=== PATIENT | female | born 1995 | race Caucasian/White ===

== ENCOUNTER → 2017-10-07 16:53 | Outpatient (CLI) | payer BC, SELFPAY ==
[2017-10-07 17:41] LABS: Absolute Lymphocyte Count 1.85 X10^3/ul (0.83-4.51); Absolute Neutrophil Count 7.6 X10^3/uL (2.0-7.7); Basophil# 0.01 X10^3/uL; Basophil% 0.1 % (0-1); Eosinophil# 0.04 X10^3/uL; Eosinophils% 0.4 % (0-5); Hematocrit 40.1 % (37-47); Hemoglobin 13.8 g/dl (12.0-15.0); Lymphocyte # 1.85 X10^3/ul (4.0); Mean Corp Hgb Conc 34.4 g/gl (32-36); Mean Corpuscular Hgb 30.9 pg (27.0-32.0); Mean Corpuscular Volume 89.7 fL (81-99); Mean Platelet Vol. 12.8 fl (6.2-12.0); Monocyte# 0.73 X10^3/uL; Monocyte% 7.1 % (0-10); Neutrophil # 7.61 X10^3/uL (2.7-7.7); Neutrophil % 74.1 % (47-70); Platelet Count 207 K/mm3 (150-450); RBC Distribution Width CV 11.9 % (11.6-14.6); RBC Distribution Width SD 38.4 fl (35.1-43.9); Red Blood Count 4.47 M/mm3 (4.2-5.4); White Blood Count 10.3 K/mm3 (4.4-11.0)
[2017-10-07 17:42] LABS: POSITIVE COUNT NO; POSITIVE DIFFERENTIAL NO; POSITIVE MORPHOLOGY NO
[2017-10-07 18:12] LABS: Glucose Challenge Gest 1H 50g 137 mg/dL (70-140)
[2017-10-07 19:07] LABS: HIV - WCH Non-Reactive (Nonreactive); Rubella IgG 141.1 IU/mL
[2017-10-09 03:47] LABS: Rapid Plasmin Reagin (RPR) NONREACTIVE (NONREACTIVE)
[2017-10-09 11:19] LABS: HEPATITIS B SURFACE AG Negative (Negative)
== END ==
PROVIDERS: Family Provider Family Medicine; PCP Family Medicine; Visit Provider Obstetrics & Gynecology
DX: Z34.90 Encounter for supervision of normal pregnancy, unspecified, unspecified trimester (principal)
CPT/HCPCS: 36415; 82950; 85025; 86592; 86703; 86762; 86850; 86900; 87340

== ENCOUNTER → 2017-10-07 17:23 | Outpatient (CLI) | payer BC, SELFPAY ==
[2017-10-07 20:04] LABS: Chlamydia Trachomatis by PCR Negative (Negative); Neisserai gonorrhoeae by PCR Negative (Negative); Probe Check PASS; Sample Adequacy Control PASS; Specimen Processing Control PASS
== END ==
PROVIDERS: Family Provider Family Medicine; PCP Family Medicine; Visit Provider Obstetrics & Gynecology
DX: Z34.90 Encounter for supervision of normal pregnancy, unspecified, unspecified trimester (principal)
CPT/HCPCS: 87086; 87088; 87491; 87591

== ENCOUNTER → 2017-10-29 06:47 | Outpatient (CLI) | payer BC, SELFPAY ==
[2017-10-29 07:38] LABS: Glucose GTT-Gestation. Fasting 88 mg/dL (<105)
[2017-10-29 08:27] LABS: Glucose GTT-Gestational 1 Hr 112 mg/dL (<190)
[2017-10-29 10:00] LABS: Glucose GTT-Gestational 2 Hr 102 mg/dL (<165)
[2017-10-29 10:51] LABS: Glucose GTT-Gestational 3 Hr 68 L (<145)
== END ==
PROVIDERS: Family Provider Family Medicine; PCP Family Medicine; Visit Provider Obstetrics & Gynecology
DX: R73.09 Other abnormal glucose (principal)
CPT/HCPCS: 36415; 82951; 82952

== ENCOUNTER → 2018-02-22 16:40 | Outpatient (CLI) | payer MEDICAID, SELFPAY ==
[2018-02-22 17:22] LABS: Absolute Neutrophil Count 9.2 X10^3/uL (2.0-7.7); Basophil# 0.03 X10^3/uL; Basophil% 0.2 % (0-1); Eosinophil# 0.08 X10^3/uL; Eosinophils% 0.7 % (0-5); Hematocrit 34.7 % (37-47); Lymphocyte % 15.6 % (19-41); Mean Corp Hgb Conc 34.6 g/gl (32-36); Mean Corpuscular Volume 95.3 fL (81-99); Mean Platelet Vol. 11.7 fl (6.2-12.0); Monocyte# 0.78 X10^3/uL; Monocyte% 6.4 % (0-10); Neutrophil # 9.22 X10^3/uL (2.7-7.7); Neutrophil % 75.6 % (47-70); Platelet Count 186 K/mm3 (150-450); RBC Distribution Width CV 12.7 % (11.6-14.6); RBC Distribution Width SD 42.3 fl (35.1-43.9); Red Blood Count 3.64 M/mm3 (4.2-5.4); White Blood Count 12.2 K/mm3 (4.4-11.0)
[2018-02-22 17:24] LABS: POSITIVE COUNT NO; POSITIVE DIFFERENTIAL NO; POSITIVE MORPHOLOGY NO
[2018-02-22 17:28] LABS: Glucose Challenge Gest 1H 50g 122 mg/dL (70-140)
== END ==
PROVIDERS: Family Provider Family Medicine; PCP Family Medicine; Referring Provider Obstetrics & Gynecology; Visit Provider Obstetrics & Gynecology
DX: O09.90 Supervision of high risk pregnancy, unspecified, unspecified trimester (principal); Z3A.00 Weeks of gestation of pregnancy not specified
CPT/HCPCS: 36415; 82950; 85025

== ENCOUNTER 2018-04-28 11:00 | Outpatient (CLI) | payer BC, MEDICAID, SELFPAY ==
[2018-04-21 14:16] VITALS: BMI 44.2
[2018-04-28 11:34] VITALS: BMI 44.4
[2018-04-28 12:02] LABS: Color, Urine Yellow (Yellow); Glucose, Dipstick Normal (Normal); Ketone-Dipstick Negative (Negative); Leukocyte Esterase-Dipstick 500 /ul (Negative); Nitrite-Dipstick Negative (Negative); Occult Blood-Urine Negative /ul (Negative); Protein-Dipstick 15 mg/dl (Negative); Urine Bilirubin Dipstick Negative (Negative); Urine Clarity Cloudy (Clear); Urine Urobilinogen 1 mg/dl (Normal); Urine pH 6.5 (5.0 - 8.0)
[2018-04-28] MEDS: Betamethasone/Betamethasone 30 MG/5 ML Vial 12 MG IM (13:21)
--- NOTE | 2018-04-29 04:05 | OB.TRI.NOTE ---
- Problem List (1) Threatened labor Status: Acute History of Present Illness Date of Service: 04/28/18 Was patient seen by the physician?: No Reason For Visit: R/O LABOR Date of Service: 04/28/18 History of Present Illness: 36 week co ctx pelvic pressure twins Allergies Penicillins [PCN] Allergy (Verified 04/28/18 11:35) Rash - Pertinent Past Medical History Medical History: Past Medical History (Last Reviewed 04/21/18 @ 13:54 by Edilia Briggs) Anxiety and depression Laboratory Studies: Laboratory Tests 04/28/18 Range/Units 11:40 Urine Color Yellow (Yellow) Urine Clarity Cloudy (Clear) Urine pH 6.5 (5.0 - 8.0) Ur Specific [place] 1.020 (1.002-1.030) Urine Protein 15 H (Negative) mg/dl Urine Glucose (UA) Normal (Normal) mg/dl Urine Ketones Negative (Negative) mg/dl Urine Occult Blood Negative (Negative) /ul Urine Nitrite Negative (Negative) Urine Bilirubin Negative (Negative) mg/dL Urine Urobilinogen 1 H (Normal) mg/dl Ur Leukocyte Esterase 500 H (Negative) /ul NST - FHR Rate Baby A Baseline: 130 Variability:: Moderate Accelerations:: 15 x 15 Decelerations:: None NST Reactive:: Yes FHR Category:: Category I Uterine Activity:: irregualr - FHR Rate Baby B Baseline: 130 Variability:: Moderate Accelerations:: 15 x 15 Decelerations:: Variable - isolated variable overall reassuring NST Reactive:: Yes FHR Category:: Category I Uterine Activity:: irregular Impression/Plan false labor no cervicla change dc home labor precautions
== END 2018-04-28 14:20 | disposition home or self-care (01) ==
LOC: WPOUT 11:08 → OBT 11:09
PROVIDERS: Family Provider Family Medicine; PCP Family Medicine; Referring Provider Obstetrics & Gynecology; Visit Provider Obstetrics & Gynecology
DX: O47.03 False labor before 37 completed weeks of gestation, third trimester (principal); O30.003 Twin pregnancy, unspecified number of placenta and unspecified number of amniotic sacs, third trimester; O76 Abnormality in fetal heart rate and rhythm complicating labor and delivery; Z3A.36 36 weeks gestation of pregnancy
CPT/HCPCS: 59025; 59050; 81002; 96372; 99218; G0378; J0702

== ENCOUNTER 2018-04-29 13:16 | Outpatient (CLI) | payer BC, MEDICAID, SELFPAY ==
[2018-04-28 11:34] VITALS: BMI 44.4
[2018-04-29] MEDS: Betamethasone/Betamethasone 30 MG/5 ML Vial 12 MG IM (13:29)
[2018-04-29 13:40] VITALS: BMI 44.5
--- NOTE | 2018-05-04 02:25 | OB.TRI.NOTE ---
- Problem List (1) Threatened labor Status: Acute History of Present Illness Reason For Visit: INJECTION History of Present Illness: celestone Allergies Penicillins [PCN] Allergy (Verified 04/28/18 11:35) Rash - Pertinent Past Medical History Medical History: Past Medical History (Last Reviewed 04/21/18 @ 13:54 by Edilia Briggs) Anxiety and depression Impression/Plan celestone injeciton only no exam
== END 2018-04-29 13:35 | disposition home or self-care (01) ==
LOC: WPOUT 13:19 → WP 13:19
PROVIDERS: Family Provider Family Medicine; PCP Family Medicine; Referring Provider Obstetrics & Gynecology; Visit Provider Obstetrics & Gynecology
DX: O47.00 False labor before 37 completed weeks of gestation, unspecified trimester (principal); Z3A.00 Weeks of gestation of pregnancy not specified
CPT/HCPCS: 96372; 99218; G0378; J0702

== ENCOUNTER 2018-05-10 05:00 | Inpatient (IN) | payer BC, MEDICAID, SELFPAY ==
[2018-04-21 14:16] VITALS: BMI 44.2
[2018-05-04 16:05] VITALS: BMI 44.5
[2018-05-10] VITALS (21 sets, daily range): BP systolic 97–140; BP diastolic 31–77; PULSE 79–114; RESP 14–22; TEMP 36.1–36.6; O2SAT 96–100; BMI 44.6
[2018-05-10] MEDS: Lactated Ringers 1,000 ML 999 ML IV (05:25)
[2018-05-10 06:18] LABS: Hematocrit 37.2 % (37-47); Hemoglobin 12.7 g/dl (12.0-15.0); Mean Corp Hgb Conc 34.1 g/gl (32-36); Mean Corpuscular Hgb 31.4 pg (27.0-32.0); Mean Corpuscular Volume 91.9 fL (81-99); Mean Platelet Vol. 12.1 fl (6.2-12.0); Platelet Count 186 K/mm3 (150-450); RBC Distribution Width CV 12.8 % (11.6-14.6); RBC Distribution Width SD 41.8 fl (35.1-43.9); Red Blood Count 4.05 M/mm3 (4.2-5.4); White Blood Count 12.8 K/mm3 (4.4-11.0)
[2018-05-10 06:20] LABS: Scan Indicated on CBC? Y/N NO
[2018-05-10] MEDS: Sodium Citrate/Citric Acid 30 ML UDC PO (06:30)
[2018-05-10] MEDS: Lactated Ringers 1,000 ML 150 ML IV (06:31)
[2018-05-10] MEDS: Methylergonovine 0.2 MG/ML Ampul IM ×2 (07:50→11:04)
--- NOTE | 2018-05-10 08:37 | PCM.HP.OB ---
- Problem List (1) Multiple gestation with one or more malpresentations in third trimester Status: Acute Comment: plan LTCS- 05/10/18 ? (2) Status: Acute Qualifiers: Comment: MFM growth US renal pelvis dilation Twin A-refer to treament. Growth US every 4 weeks. testing 1x per week and daily kick counts due to BMI >40. (3) Obesity affecting Status: Acute Qualifiers: (4) Dichorionic diamniotic twin gestation Status: Acute Qualifiers: Comment: growth scans q 4 weeks after 26 weeks (5) Abnormal glucose Status: Acute Comment: nl 3 hour gtt (6) Supervision of high-risk Status: Chronic Qualifiers: Comment: PRR LITA 05/24/18 Andreina and Stefania boyfrienifeanyi [facility]st History Date of Admission: 05/10/18 Final LITA: 05/24/18 Gestational age: 38 Weeks and 0 Days History of this : This is a 22 year-old, , at 38 weeks gestational age presents for LTCS. Medical History: Medical History (Last Reviewed 05/04/18 @ 16:04 by Edilia Briggs) Anxiety and depression F41.9, F32.9 Allergies Penicillins [PCN] Allergy (Verified 05/10/18 05:20) Rash Home Medications: Home Medications vitamin,calcium,iecixsri-ngjj-ulacb acid tablet 1 tab PO QDAY 10/07/17 Sertraline HCl [Zoloft] 50 mg PO DAILY 04/28/18 Smoking Status: Never smoker Alcohol: None Number of Fetus(es): 2 Heart Tracins x 2 History Past Pregnancies: Past Pregnancies Delivery Date Name GA/Weeks Outcome Route Weight Gender Labor Length Anesthesia Delivery Location Provider FOB Labs: Mom's Labs & Results 05/10/18 05/10/18 05:25 05:25 WBC 12.8 H RBC 4.05 L Hgb 12.7 Hct 37.2 MCV 91.9 MCH 31.4 MCHC 34.1 RDW 12.8 RDW Differential 41.8 Plt Count 186 MPV 12.1 H Blood Type O POSITIVE Antibody Screen NEGATIVE Course Did the patient receive Yes care? Labs Blood Type: O RH: POSITIVE RPR/VDRL/Syphilis Nonreactive Rubella status Immune HbSAg Negative Date Done: 10/07/17 Chlamydia Negative Gonorrhea Negative HIV/AIDS Non-Reactive Group B Strep: Positive Current Obstetrical History Gestational Diabetes No Incompetent Cervix No Infertility No IUGR No Macrosomia No Hypertension/Pre-eclampsia No Placenta Previa/Abruption No PTL/PROM No Uterine anomaly No Oligohydramnios No Polyhydramnios No Multiple gestation Yes: twins Past Medical History Asthma No Diabetes No Hypertension No Heart disease No Mitral valve prolapse No Neurologic/Seizure disorder/ No Migraines Kidney disease No Liver disease No Varicosities No Clotting disorders/Hx of DVT No Thyroid Dysfunction No Other medical diseases Yes: taking zoloft Psychiatric disorders No Major trauma No Abnormal PAP smear No Sleep apnea No Mammogram in the last 2 years No Social History Marital Status: SINGLE Alleged father Aris Hx Smoking No Smoking Status Never smoker Review of Systems Constitutional: Denies: Fever, Malaise Eyes: Denies: Blurred vision, Vision Change HEENT: Denies: Head Aches, Visual Changes Cardiovascular: Denies: Chest Pain, Palpitations Respiratory: Denies: Cough, Shortness of Breath, Wheezing Gastrointestinal: Denies: Abdominal Pain, Diarrhea, Nausea, Vomiting Genitourinary: Denies: Dysuria, Hematuria Musculoskeletal: Denies: Joint Pain, Muscle pain Skin: Denies: Lesions, Rash Neurological: Denies: Blurred vision, Focal weakness, Headaches Psychiatric: Denies: Anxiety, Depression Endocrine: Denies: Heat/ Cold Intolerance Hematologic/ Lymphatic: Denies: Easy Bruising, Easy Bleeding Physical Exam General: Alert, Cooperative, No apparent distress HEENT: Atraumatic, Normocephalic. Negative for: Thyromegaly, Lymphadenopathy Cardiovascular: Regular rate Lungs: Normal air movement Abdomen: Soft, Non Tender, Gravid Neurological: Deep Tendon Reflexes 2+/4 and Symmetrical, Neuro grossly intact. Negative for: Clonus CORRESPONDENCE SPECIALIST: Normal external genitalia. Negative for: Vulvar lesions Estimated gestational size: Appropriate for gestational size Presentation: Cephalic Assessment/Plan All Active Problems (Last Reviewed 05/04/18 @ 16:04 by Edilia Briggs) Threatened labor (Acute) Multiple gestation with one or more malpresentations in third trimester (Acute) (Acute) Obesity affecting (Acute) Dichorionic diamniotic twin gestation (Acute) Abnormal glucose (Acute) BMI greater than 40 (Resolved) Imperforate hymen (Resolved) This is a 22 year-old, , at 38 weeks gestational age with twins malpresentation plan LTCS for malpresentation
--- NOTE | 2018-05-10 08:44 | OP.PCM_ITS ---
Problem List (1) Multiple gestation with one or more malpresentations in third trimester Status: Acute Comment: plan LTCS- 05/10/18 ? (2) Status: Acute Qualifiers: Comment: MFM growth US renal pelvis dilation Twin A-refer to treament. Growth US every 4 weeks. testing 1x per week and daily kick counts due to BMI >40. (3) Obesity affecting Status: Acute Qualifiers: (4) Dichorionic diamniotic twin gestation Status: Acute Qualifiers: Comment: growth scans q 4 weeks after 26 weeks (5) Abnormal glucose Status: Acute Comment: nl 3 hour gtt (6) Supervision of high-risk Status: Chronic Qualifiers: Comment: PRR LITA 05/24/18 Andreina and Stefania boysusan [facility]st Report of Operation Date of Procedure: 05/10/18 Pre-Operative Diagnosis: Di?di twins breech breech presentation Post-Operative Diagnosis: Same Surgery/Procedure Performed:: Low transverse section Description of Surgical Findings:: Bilateral normal ovaries and tubes, mild uterine atony, both female infants and complete breech presentation special education teaching assistant: Estefany Caballero Type of Anesthesia:: Spinal Specimen's removed: female infants x 2 Drains: garcia Estimated Blood Loss (mL): 900 Fluids Replaced: crystalloid Description of Procedure: The patient is a 22-year-old at 38 weeks with diamniotic dichorionic twins in breech breech presentation presented for by Zeinab . Spinal anesthesia was placed without difficulty. Garcia catheter was placed. The patient was placed in the dorsal supine position with leftward tilt. Patient was prepped and draped in the normal sterile fashion. Pfannenstiel skin incision was made with the scalpel and carried through to the underlying layer of fascia with the scalpel. Fascia was nicked in the midline and the incision extended laterally. The rectus bellies were dissected off superiorly and inferiorly with out complication both sharply and bluntly. The peritoneum was entered digitally. The incision was stretched and a low transverse uterine incision was made with the scalpel. The 's buttocks was delivered followed by the rest the spontaneously without additional maneuvers without complication the rest of the delivered. The cord was clamped and cut and the infant was handed off to awaiting nurse. BPP's amniotic sac was ruptured of clear fluid and the buttocks was delivered followed by the rest of the without complication immediately following spontaneously. the placentas delivered spontaneously immediately following and were noted to be intact and have three-vessel cords. The uterus was exteriorized cleared of all clots and debris, and the incision was closed in a double layer closure using #1 Monocryl. Mild uterine atony was encountered and treated with Pitocin and Methergine. The uterus was returned to the maternal abdomen and gutters were cleared of all clots and debris. The ovaries and fallopian tubes were noted to be within normal limits. The peritoneum was closed with 3-0 Monocryl in a runni ng fashion. Fascia was closed with 0 PDS in a running fashion. Subcutaneous tissue was copiously irrigated and the skin was closed with 3-0 Monocryl in a subcuticular fashion. Mepilex dressing were applied without complication. Patient was taken to recovery in stable condition. Grafts/Implants Used: none - Complications none - Admit VTE Documentation VTE Present on Admission: No
--- NOTE | 2018-05-10 08:47 | PLAC_PTH ---
PATIENT: LOULOU YOU LOC: [facility] U#:[id number] AGE/SX: ROOM: WP004 RE05/10/[address]: Dr. Aeme Jackson MD : 1995 BED: 1 DIS: 05/12/2018 SPEC #: [id number] RECD: 05/10/18 11:02 STATUS: SHE ANJEL #: [id number] LAURA: 05/10/18 08:[address]: Amee Jackson DEPT: SURGICAL PATHOLOGY RECD BY: Hema Welch ENTERED: 05/10/18 11:34 SP TYPE: PLACENTA OTHR DR: Louise Moon PA-C Tissues: Placenta, NOS Procedures: Surgery Specimen Level V HEADER OPERATION: section PRE-OP DIAGNOSIS: Twins TISSUE SUBMITTED: Placenta MICROSCOPIC DIAGNOSIS Twin Placenta A, section: Diamniotic-dichorionic twin placenta, 520 gm. Placental weight and villous maturation consistent with gestational age. Small placental hematomas, maximal 1.5 cm. Intervillous fibrin deposition with calcification. Three-vessel umbilical cord. membranes, negative for inflammation. Twin Placenta B, section: Diamniotic-dichorionic twin placenta, 530 gm. Placental weight and villous maturation consistent with gestational age. Small placental hematoma, 0.5 cm. Fibromuscular hyperplasia of stem villous blood vessels. Mild intervillous fibrin deposition with calcification. Three-vessel umbilical cord. membranes, negative for inflammation. CE:mark 05/12/18 MICROSCOPIC DESCRIPTION Slides are reviewed. GROSS DESCRIPTION SPECIMEN: TWIN PLACENTA / CLINICAL INFORMATION: A. Weight: A - 2.762 kg; B - 2.533 kg B. Gestational Age: 38 weeks C. Sex: A - Female, B - Female The specimen consists of two placental discs, two umbilical cords, peripheral membranes and a dividing membrane. One umbilical cord has a clamp on it and is designated as twin 1. Physical manipulation of the dividing membrane reveals four distinct membranes. Both peripheral membranes are ruptured at edge of placental disc. PLACENTA A: (Designated placenta 1 with clamp) PLACENTAL WEIGHT (POST FIXATION): 520 gm PLACENTAL DIMENSIONS: 22 x 16 x 3 cm PLACENTAL SHAPE: Usual ovoid PLACENTAL WEIGHT FOR GESTATIONAL AGE: Within 10-99th percentile (over/under percentile) MEMBRANES - Present A. Insertion: Marginal B. Site of rupture from edge: At edge of placental disc C. Color of membrane: Mac-pereira D. Abnormalities: None UMBILICAL CORD - Present A. Color: Mac-pereira B. Insertion: Marginal C. Length: 22 cm D. Diameter: 1 cm E. Number of vessels: Three F. Abnormalities: None PLACENTAL DISC - Present A. Color of surface: Mac-pereira B. surface abnormalities: None C. Maternal cotyledons: Intact with minimal tears D. Attached retro placental clot: No clot E. Cut surface: Dark red and spongy F. Lesions: Serial sections reveal a firm, plaque-like lesion measuring 1.5 x 1 cm close to the surface. G. Separate clot: Absent PLACENTA B: (placenta 2) PLACENTAL WEIGHT (POST FIXATION): 530 gm PLACENTAL DIMENSIONS: 17 x 15 x 3 cm PLACENTAL SHAPE: Usual ovoid PLACENTAL WEIGHT FOR GESTATIONAL AGE: Within 10-99th percentile (over/under percentile) MEMBRANES - Present A. Insertion: Marginal B. Site of rupture from edge: At edge of placental disc C. Color of membrane: Mac-pereira D. Abnormalities: None UMBILICAL CORD - Present A. Color: Mac-pereira B. Insertion: Eccentric C. Length: 20 cm D. Diameter: 1.5 cm E. Number of vessels: Three F. Abnormalities: None PLACENTAL DISC - Present A. Color of surface: Mac-pereira B. surface abnormalities: None C. Maternal cotyledons: Intact with minimal tears D. Attached retro placental clot: No clot E. Cut surface: Dark red and spongy F. Lesions: None G. Separate clot: Absent SECTIONS SUBMITTED: 1 - Dividing membrane 2 - Peripheral membrane placenta #1 3-5 - Placental disc #1 with 3 containing the lesion 6 - Umbilical cord and membranes disc #2 7-9 - Placental disc #2 AM:mark 05/11/18 TC:5 CPT: 52941 x2
[2018-05-10] MEDS: Sertraline 50 MG Tablet PO (09:48)
[2018-05-10] MEDS: Prenatal Vits Tablet 1 TABLET PO (09:48)
[2018-05-10] MEDS: Nalbuphine 10 MG/ML Ampul IV ×2 (09:48→13:37)
[2018-05-10] MEDS: 0.9% Saline Lock 10 ML Syringe IV (13:37)
[2018-05-10] MEDS: Ketorolac 30 MG/ML Syringe IV ×2 (13:37→18:04)
[2018-05-10] MEDS: Lactated Ringers 1,000 ML 100 ML IV (16:02)
[2018-05-11] VITALS (7 sets, daily range): BP systolic 90–108; BP diastolic 49–59; PULSE 78–95; RESP 16–22; TEMP 36.3–36.9; O2SAT 97–100
[2018-05-11] MEDS: Ketorolac 30 MG/ML Syringe IV ×4 (00:22→18:32)
[2018-05-11] MEDS: Lactated Ringers 1,000 ML 100 ML IV (02:00)
[2018-05-11 06:49] LABS: Hematocrit 29.1 % (37-47); Hemoglobin 9.7 g/dl (12.0-15.0); Mean Corp Hgb Conc 33.3 g/gl (32-36); Mean Corpuscular Hgb 31.6 pg (27.0-32.0); Mean Corpuscular Volume 94.8 fL (81-99); Mean Platelet Vol. 11.5 fl (6.2-12.0); Platelet Count 148 K/mm3 (150-450); RBC Distribution Width CV 13.1 % (11.6-14.6); Red Blood Count 3.07 M/mm3 (4.2-5.4); White Blood Count 10.1 K/mm3 (4.4-11.0)
[2018-05-11 06:54] LABS: Scan Indicated on CBC? Y/N NO
[2018-05-11] MEDS: 0.9% Saline Lock 10 ML Syringe IV ×2 (08:12→18:32)
--- NOTE | 2018-05-11 08:30 | PCM.PN.OB ---
Subjective: No CP, SOB. Doing well. - Physical Exam General: Alert, Oriented x3 Abdomen: Soft, Non-Distended, - - Dressing dry and intact. Minimal tenderness with exam. FF below U Vital Signs Temp Pulse Resp BP Pulse Ox 97.5 F L 82 16 95/52 L 100 05/11/18 08:00 05/11/18 08:00 05/11/18 08:00 05/11/18 08:00 05/11/18 08:00 Oxygen Delivery Method Room Air Weight: 251 lb 15.814 oz Body Mass Index (BMI) 44.6 Intake and Output for Last 24 Hours 05/09/18 05/10/18 05/11/18 23:59 23:59 23:59 Intake Total 2868 / 2868 1401 / 1401 Output Total 1225 / 1225 875 / 875 Balance 1643 / 1643 526 / 526 Laboratory Tests Past 24 Hrs 05/11/18 06:35 WBC 10.1 RBC 3.07 L Hgb 9.7 L Hct 29.1 L MCV 94.8 MCH 31.6 MCHC 33.3 RDW 13.1 RDW Differential 43.0 Plt Count 148 L MPV 11.5 Medical Necessity - Tobacco Use Smoking Status: Never smoker Assessment/Plan All Active Problems (Last Reviewed 05/04/18 @ 16:04 by Edilia Briggs) Threatened labor (Acute) Multiple gestation with one or more malpresentations in third trimester (Acute) (Acute) Obesity affecting (Acute) Dichorionic diamniotic twin gestation (Acute) Abnormal glucose (Acute) BMI greater than 40 (Resolved) Imperforate hymen (Resolved) LTPCS twins POD#1: Routine care. Pain controlled.
[2018-05-11] MEDS: Sertraline 50 MG Tablet PO (09:32)
[2018-05-11] MEDS: Prenatal Vits Tablet 1 TABLET PO (12:04)
[2018-05-11] MEDS: Acetaminophen 500 MG Tablet 1000 MG PO (16:08)
[2018-05-12] MEDS: 0.9% Saline Lock 10 ML Syringe IV ×2 (00:06→06:13)
[2018-05-12] MEDS: Ketorolac 30 MG/ML Syringe IV ×2 (00:06→06:15)
[2018-05-12 01:50] VITALS: BP 103/65; PULSE 80; RESP 18; TEMP 36.8; O2SAT 98
--- NOTE | 2018-05-12 08:02 | PCM.PN.OB ---
Subjective: Doing well. No CP, SOB. Pain controlled - Physical Exam General: Alert, Oriented x3 Abdomen: Soft, Non Tender, Non-Distended, - - FF below U. Dressing dry and intact Vital Signs Temp Pulse Resp BP Pulse Ox 98.2 F 80 18 103/65 98 05/12/18 01:50 05/12/18 01:50 05/12/18 01:50 05/12/18 01:50 05/12/18 01:50 Oxygen Delivery Method Room Air Weight: 251 lb 15.814 oz Body Mass Index (BMI) 44.6 Intake and Output for Last 24 Hours 05/10/18 05/11/18 05/12/18 23:59 23:59 23:59 Intake Total 2868 / 2868 1401 / 1401 Output Total 1225 / 1225 1475 / 1475 Balance 1643 / 1643 -74 / -74 Medical Necessity - Tobacco Use Smoking Status: Never smoker Assessment/Plan All Active Problems (Last Reviewed 05/04/18 @ 16:04 by Edilia Briggs) Threatened labor (Acute) Multiple gestation with one or more malpresentations in third trimester (Acute) (Acute) Obesity affecting (Acute) Dichorionic diamniotic twin gestation (Acute) Abnormal glucose (Acute) BMI greater than 40 (Resolved) Imperforate hymen (Resolved) LTPCS POD#2: Routine care. Bottle feeding. Plans home today.
--- NOTE | 2018-05-12 08:03 | PCM.DCCSEC ---
Additional Instructions: If you experience any of the following, contact your healthcare provider. Bleeding that soaks a pad every hour for 2 hours Fever 100.4 or higher Unrelieved incision or abdominal pain Swelling, redness, discharge or bleeding from your incision or episiotomy site Your incision begins to separate Problems urinating (including inability to urinate or burning while urinating). Visual changes Severe headache Flu-like symptoms Pain or redness in one of both of your breasts Pain, warmth, tenderness or swelling in your legs, especially the calf area Frequent nausea and vomiting Symptoms of depression or anxiety If you experience any of the following, call 911 or go to the nearest Emergency Room. Chest pain Problems breathing Seizure activity Partial or complete paralysis of a body part, slurred speech, weakness or drooping of the face, or a sudden inability to walk or hold your balance Allergies/Adverse Reactions: Allergies Penicillins [PCN] Allergy (Verified 05/10/18 05:20) Rash Medications to take at Discharge vitamin,calcium,axlllrwi-fimi-tivsw acid tablet 1 tab PO QDAY 10/07/17 Sertraline HCl [Zoloft] 50 mg PO DAILY 04/28/18 Naproxen [Naprosyn] 500 mg PO BID PRN PRN #60 tablet 05/12/18 Oxycodone HCl/Acetaminophen [Percocet 5/325] 1 - 2 tablet PO Q4H PRN PRN 7 Days #28 tablet 05/12/18 The following prescriptions were given: Oxycodone HCl/Acetaminophen [Percocet 5/325] 1 - 2 tablet PO Q4H PRN PRN 7 Days #28 tablet PRN Reason: Pain Naproxen [Naprosyn] 500 mg PO BID PRN PRN #60 tablet PRN Reason: Pain Follow-Up: Call to make an appointment with your doctor for an incision check in 1-2 weeks. You will also need a 6 week post- follow up appointment. Test results from this visit will be discussed in further detail at your follow-up appointment, if applicable. Primary Care Physician: Louise Moon PA-C [Primary Care Provider] -
--- NOTE | 2018-05-12 08:05 | DCINST_ITS ---
Additional Instructions: If you experience any of the following, contact your healthcare provider. * Bleeding that soaks a pad every hour for 2 hours * Fever 100.4 or higher * Unrelieved incision or abdominal pain * Swelling, redness, discharge or bleeding from your incision or episiotomy site * Your incision begins to separate * Problems urinating (including inability to urinate or burning while urinating). * Visual changes * Severe headache * Flu-like symptoms * Pain or redness in one of both of your breasts * Pain, warmth, tenderness or swelling in your legs, especially the calf area * Frequent nausea and vomiting * Symptoms of depression or anxiety If you experience any of the following, call 911 or go to the nearest Emergency Room. * Chest pain * Problems breathing * Seizure activity * Partial or complete paralysis of a body part, slurred speech, weakness or drooping of the face, or a sudden inability to walk or hold your balance Allergies/Adverse Reactions: Allergies Penicillins [PCN] Allergy (Verified 05/10/18 05:20) Rash Medications to take at Discharge vitamin,calcium,cjjrpogx-gdvi-wjknl acid tablet 1 tab PO QDAY 10/07/17 Sertraline HCl [Zoloft] 50 mg PO DAILY 04/28/18 Naproxen [Naprosyn] 500 mg PO BID PRN PRN #60 tablet 05/12/18 Oxycodone HCl/Acetaminophen [Percocet 5/325] 1 - 2 tablet PO Q4H PRN PRN 7 Days #28 tablet 05/12/18 The following prescriptions were given: Oxycodone HCl/Acetaminophen [Percocet 5/325] 1 - 2 tablet PO Q4H PRN PRN 7 Days #28 tablet PRN Reason: Pain Naproxen [Naprosyn] 500 mg PO BID PRN PRN #60 tablet PRN Reason: Pain Follow-Up: Call to make an appointment with your doctor for an incision check in 1-2 weeks. You will also need a 6 week post- follow up appointment. Test results from this visit will be discussed in further detail at your follow- up appointment, if applicable. Primary Care Physician: Louise Moon PA-C [Primary Care Provider] -
[2018-05-12 08:50] VITALS: BP 103/56; PULSE 98; RESP 16; TEMP 36.6; O2SAT 97
[2018-05-12] MEDS: Sertraline 50 MG Tablet PO (10:06)
--- NOTE | 2018-05-12 10:45 | CASEMGMT ---
ocial Work Assessment Labor and Delivery Unit Date of Referral: 05/11/2018 Time of Referral: 0739 Referred By: Dr. Jackson Date of Intervention: 05/12/2018 Time of Intervention: 1045 Reason for Referral: maternal history of depression History obtained from: medical record and mother of baby (MOB) Patty Alvarez. Father of baby present for part of the visit. Household composition: MOB, father of baby (FOB), MOB?s mother and intend for twin babies to reside in this home as well. Patient's parent/guardian status: MOB, age 21, and FOB have been together for 3 years. Privately MOB denies any form of abuse, control, or intimidation in this relationship. Children born this admission are the first for MOB and FOB. Minor children include: Stefania and Andreina Bui, twin girls. Medical History: MOB is G1, P0 to 2 after delivering twins. care started at 7 weeks gestation and adequate thereafter. Baby A delivered at 6 pounds 5 ounces, ?s 9 and 9. Baby B delivered at 6 pounds 1 ounce, ?s also 9. 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 MOB reports ability to read, write, and denies any issues with learning comprehension. 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 Supplies: MOB reports to have needed baby supplies including 2 car seats, 2 cribs, double bassinet, clothes, diapers, wipes, bottles, and can purchase formula at time of discharge. Childcare/Caregiver(s): MOB will be primary caregiver with the help from FOB and MOB?s mom. When MOB returns to work there is already a cloth roll winder lined up. Transportation: No issues reported or indicated. Programs/Agencies Involved: S for medical. WIC is in place. MOB denies any other agency involvement and declines referral to [facility]. Children Services/Legal Issues: Behavioral Health Issues: Mental Health History: MOB reports history of depression and anxiety, treated with Zoloft. MOB repots this medication seems to help and plans to stay on this in the period. MOB denies any history of thoughts of suicide, plans, or past attempts. Substance Use History: MOB denies any history of substance use. No tobacco use either. Drug Screens: None noted in the record. Family/Social Stressors: was a surprised but accepted. MOB reports it was a bit overwhelming when found out with twins but did quickly come to accept and became excited after some initial anxiety. MOB denies any other stressors or big life changes. Support Systems: MOB reports good support from FOB, MOB?s mother, and then FOB?s family lives close by and are helpful. MOB reports FOB?s family are [place] so there is a large family network this way. MOB reports FOB is MOB?s main emotional support. Depression/Shaken Baby/Safe Sleeping: MOB reports to be aware of safe sleeping. MOB able to give appropriate responses on shaken baby prevention. Educated MOB and FOB to depression and anxiety, risk factors, signs/symptoms, and importance of seeking out help should symptoms arise. ASSESSMENT: Met with MOB and FOB together and then with MOB alone. Both parents pleasant. FOB held one of the babies during social work visit, appeared gentle, calm, and appropriate in handling the baby. The other baby slept in the crib. MOB answered questions and FOB only when a question directly asked. FOB appearing quiet, reserved, affect constricted but brightened when talking about excitement of having children. MOB affect and mood appropriate, though when discussion about depression symptoms discussed, MOB started to cry. MOB reports unsure why crying, that just talking about crying brought on the tears. Crying was sudden onset and FOB looked on at MOB with tense facial expression appearing perplexed why MOB was crying. Talked with both that it is common for moms to cry spontaneously in the first couple of weeks, but if lasts longer than 2 weeks or other symptoms arise this could mean depression and importance to seeking out help. Introduced to idea that men can also get depression, some reasons behind this, and importance of both parents to have support. Did note in chart that FOB is also on Zoloft. When FOB asked to leave to allow for some private time (suicide, domestic violence, drugs, and MOB?s current emotions discussed further), FOB left but did look at MOB and again looked tense. This field underwriter addressed whether FOB is okay and MOB reports belief that FOB is probably worried that will be talking about FOB. MOB indicates that FOB is sensitive. MOB denies any form of abuse, reports FOB is a strong support, reports to have enough supplies for the babies, and that will call [facility] on own if changes mind about accepting services in the future. MOB reports to have an emotional connection with the babies and to be happy currently. MOB denies any needs for home going, accepted list of social service agencies in [facility] as well as depression packet. PLAN: MOB and both babies to discharge today. Resources provided for home going. No other services requested or indicated. -WILLIAMS Ventura, FUDGE CANDY MAKER
[2018-05-12] MEDS: Prenatal Vits Tablet 1 TABLET PO (11:52)
[2018-05-12] MEDS: Acetaminophen 500 MG Tablet 1000 MG PO (11:56)
[2018-05-13 10:22] LABS: Pathology Specimen OB SEE PATHOLOGY REPORT
--- NOTE | 2018-05-19 11:55 | NURSING ---
4730 Follow up phone call made and Mom states that twins are doing pretty well with their formula. They sometimes have to work alittle harder with taking enough. Mom states that she is doing well and has no questions or concerns with her hospital stay or discharge. Enjoyed her stay at [facility]. Rupal EPPS
--- OUTSIDE RECORDS SUMMARY | 2018-07-12 14:16 | XMS RPT_ITS ---
:1995 Author Organization [place] Support Name Relationship Address Phone JUSTICE, BIANCA Unavailable Unavailable + [place] [address] [employer]O [employer] Unavailable [address] + [place] [address] JUSTICE, BIANCA Unavailable . + [place] [address] [employer] Unavailable [address] + [place] [address] JUSTICE, BIANCA Unavailable . + [place] [address] [employer]FR[employer]O [employer] Unavailable [address] + [place] [address] JUSTICE, BIANCA Unavailable Unavailable + [place] [address] [employer] Unavailable [address] + [place] [address] JUSTICE, BIANCA Unavailable Unavailable + JUSTICE, BIANCA Unavailable . + [place] [address] [employer]O [employer] Unavailable [address] + [place] [address] JUSTICE, BIANCA Unavailable Unavailable + [place] [address] [employer] Unavailable [address] + [place] [address] JUSTICE, BIANCA Unavailable Unavailable + JUSTICE, BIANCA Unavailable Unavailable + [place] [address] [employer] Unavailable [address] + [place] [address] JUSTICE, BIANCA Unavailable . + [place] [address] [employer] Unavailable [address] + [place] [address] JUSTICE, BIANCA Unavailable Unavailable + [place] [address] ALFREDO [employer] Unavailable [address] + [place] [address] JUSTICE, BIANCA Unavailable Unavailable + [place] Unavailable [address] + [place] [address] BIANCA RANDLE Unavailable [address] + [place] [address] JUSTICE, BIANCA Unavailable Unavailable + JUSTICE, BIANCA Unavailable Unavailable + [place] Unavailable [address] + [place] [address] BIANCA RANDLE Unavailable [address] + [place] [address] PAULETTE, BIANCA Unavailable Unavailable + [place] Unavailable [address] + [place] [address] BIANCA RANDLE Unavailable [address] + [place] [address] [place] [address] + [place] [address] BIANCA RANDLE Unavailable [address] + [place] [address] PAULETTE, BIANCA Unavailable Unavailable + [place] Unavailable [address] + [place] [address] BIANCA RANDLE Unavailable [address] + [place] [address] YAJAIRAESCTY Unavailable [address] + [place] [address] BIANCA RANDLE Unavailable [address] + [place] [address] JESSICA YOUHEAL Unavailable [address] + [address] [place] [address] WAGERS, LOULOU Unavailable [address] + [address] [place] [address] [place] Un[address] + [place] [address] BIANCA RANDLE Unavailable [address] + [place] [address] [place] [address] + [place] [address] BIANCA RANDLE Unavailable [address] + [place] [address] BIANCA CALDWELL Unavailable Unavailable + WAANABELL, LOULOU Unavailable [address] + [address] [place] [address] [place] Un[address] + [place] [address] BIANCA RANDLE Unavailable [address] + [place] [address] [place] [address] + [place] [address] BIANCA RANDLE Unavailable [address] + [place] [address] [place] [address] + [place], [place] [address]BIANCA BRYAN Unavailable [address] + [place] [address] [place] Un[address] + [place] [address] BIANCA RANDLE Unavailable [address] + [place] [address] [place] Un[address] + [place] [address] BIANCA RANDLE Unavailable [address] + [place] [address] [place] Un[address] + [place] [address] BIANCA RANDLE Unavailable [address] + [place] [address] [place] [address] + [place], [place] [address]BIANCA BRYAN Unavailable [address] + [place] [address] [place] [address] + [place] [address] BIANCA RANDLE Unavailable [address] + [place] [address] [place] [address] + [place] [address] BIANCA RANDLE Unavailable [address] [facility] [address] + [place] [address] BIANCA CALDWELL Unavailable [address] + [place] [address] NOT GIVEN Unavailable Unavailable Unavailable Care Team Providers Name Role Phone SHARAN JEFFREY Attending Unavailable AMEE SCHAFFER Referring Unavailable NO PRIMARY CARE, Primary Care Unavailable SHARAN JEFFREY Attending Unavailable AMEE SCHAFFER Referring Unavailable NO PRIMARY CARE, Primary Care Unavailable ESTELLA YUN Attending Unavailable AMEE SCHAFFER Referring Unavailable NO PRIMARY CARE, Primary Care Unavailable SHARAN JEFFREY Attending Unavailable AMEE SCHAFFER Referring Unavailable NO PRIMARY CARE, Primary Care Unavailable SHARAN JEFFREY Attending Unavailable MARCANTHONYAMEE E Referring Unavailable ORGAS, ARTURO D Primary Care Unavailable SHARAN JEFFREY Attending Unavailable MARCANTHONYAMEE E Referring Unavailable ORGAS, ARTURO D Primary Care Unavailable CYNDIE AGUILAR Attending Unavailable MARCANTHONY, AMEE E Referring Unavailable ORGAS, ARTURO D Primary Care Unavailable WANDER KUMAR Attending Unavailable ORGAS, ARTURO D Referring Unavailable ORGAS, ARTURO D Primary Care Unavailable RED ALBERTO Attending Unavailable MARCANTHONY, AMEE E Referring Unavailable ORGAS, ARTURO D Primary Care Unavailable NATHAN RODRIGUEZ Attending Unavailable MARCANTHONY, AMEE E Referring Unavailable ORGAS, ARTURO D Primary Care Unavailable CYNDIE AGUILAR Attending Unavailable MARCANTHONY, AMEE E Referring Unavailable HILLS, ARTURO D Primary Care Unavailable HILLS, ARTURO Admitting Unavailable HILLS, ARTURO Attending Unavailable HILLS, ARTURO Primary Care Unavailable MarcgayeonyAmee Attending Unavailable Elwin, Arturo PA-C Referring Unavailable MarcanthonyAmee Attending Unavailable Elwin, Arturo PA-C Referring Unavailable MarcanthonyAmee Admitting Unavailable MarcanthonyAmee Attending Unavailable MarcanthonyAmee Referring Unavailable Elwin, Arturo PA-C Primary Care Unavailable MarcanthonyAmee Attending Unavailable MarcanthonyAmee Referring Unavailable Elwin, Arturo PA-C Primary Care Unavailable Marcanthony, Amee Attending Unavailable Marcanthony, Amee Referring Unavailable Elwin, Arturo PA-C Primary Care Unavailable Marcanthony, Amee Consulting Unavailable Marcanthony, Amee Attending Unavailable Marcanthony, Amee Referring Unavailable Elwin, Arturo PA-C Primary Care Unavailable Marcanthony, Amee Attending Unavailable Elwin, Arturo PA-C Referring Unavailable Elwin, Arturo PA-C Primary Care Unavailable Marcanthony, Amee Attending Unavailable Marcanthony, Amee Referring Unavailable Elwin, Arturo PA-C Primary Care Unavailable Marcanthony, Amee Attending Unavailable Elwin, Arturo PA-C Primary Care Unavailable Marcanthony, Amee Referring Unavailable Marcanthony, Amee Attending Unavailable Marcanthony, Amee Referring Unavailable Elwin, Arturo PA-C Primary Care Unavailable Marcanthony, Amee Consulting Unavailable Marcanthony, Amee Attending Unavailable Elwin, Arturo PA-C Referring Unavailable Marcanthony, Amee Admitting Unavailable Marcanthony, Amee Attending Unavailable Marcanthony, Amee Referring Unavailable Elwin, Arturo PA-C Primary Care Unavailable Marcanthony, Amee Consulting Unavailable Marcanthony, Amee Admitting Unavailable Shyla, Bessie Attending Unavailable Marcanthony, Amee Referring Unavailable Elwin, Arturo PA-C Primary Care Unavailable Marcanthony, Amee Consulting Unavailable Marcanthony, Amee Admitting Unavailable Plymouth, Bessie Attending Unavailable Marcanthony, Amee Referring Unavailable Elwin, Arturo PA-C Primary Care Unavailable Marcanthony, Amee Consulting Unavailable Marcanthony, Amee Attending Unavailable Elwin, Arturo PA-C Referring Unavailable Elwin, Arturo PA-C Primary Care Unavailable Marcanthony, Amee Attending Unavailable Elwin, Arturo PA-C Referring Unavailable Elwin, Arturo PA-C Primary Care Unavailable Marcanthony, Amee Attending Unavailable Marcanthony, Amee Referring Unavailable Elwin, Arturo PA-C Primary Care Unavailable Marcanthony, Amee Attending Unavailable Elwin, Arturo PA-C Referring Unavailable Elwin, Arturo PA-C Primary Care Unavailable Marcanthony, Amee Attending Unavailable Elwin, Arturo PA-C Referring Unavailable Elwin, Arturo PA-C Primary Care Unavailable Marcanthony, Amee Attending Unavailable Elwin, Arturo PA-C Referring Unavailable Elwin, Arturo PA-C Primary Care Unavailable Marcanthony, Amee Attending Unavailable Elwin, Arturo PA-C Referring Unavailable Marcanthony, Amee Attending Unavailable Elwin, Arturo PA-C Referring Unavailable Marcanthony, Amee Attending Unavailable Elwin, Arturo PA-C Referring Unavailable Marcanthony, Amee Attending Unavailable Marcanthony, Amee Referring Unavailable Elwin, Arturo PA-C Primary Care Unavailable Marcanthony, Amee Attending Unavailable Elwin, Arturo PA-C Referring Unavailable Marcanthony, Amee Attending Unavailable Elwin, Arturo PA-C Referring Unavailable PROBLEMS PROBLEMS DATE TYPE CONDITION / CODE ATTENDING STATUS SOURCE 05/12/2018 Unknown G89.18 - Other acute Marcanthony, Active [place] postprocedural pain / [facility] G89.18(ICD-10) Hospital Repository 05/04/2018 Unknown O99.213 - Obesity Marcanthony, Active [place] complicating [facility] , third Hospital trimester / Repository O99.213(ICD-10) 05/04/2018 Unknown R73.09 - Other Marcanthony, Active [place] abnormal glucose / [facility] R73.09(ICD-10) Hospital Repository 05/04/2018 Unknown O09.93 - Supervision Marcanthony, Active [place] of high risk [facility] , Hospital unspecified, third Repository trimester / O09.93(ICD-10) 05/04/2018 Unknown O30.043 - Twin Marcanthony, Active [place] , [facility] dichorionic/diamnioti Hospital c, third trimester / Repository O30.043(ICD-10) 05/04/2018 Unknown O30.93 - Multiple Marcanthony, Active [place] gestation, [facility] unspecified, third Hospital trimester / Repository O30.93(ICD-10) 05/04/2018 Unknown O32.9XX0 - Maternal Marcanthony, Active [place] care for [facility] malpresentation of Hospital fetus, unspecified, Repository not applicable or unspecified / O32.9XX0(ICD-10) 05/04/2018 Unknown Z3A.37 - 37 weeks Marcanthony, Active [place] gestation of [facility] / Hospital Z3A.37(ICD-10) Repository 03/08/2018 Unknown O30.042 - Twin Marcanthony, Active [place] , [facility], second trimester / Repository O30.042(ICD-10) 03/08/2018 Unknown O09.92 - Supervision Marcanthony, Active [place] of high risk [facility] , Hospital unspecified, second Repository trimester / O09.92(ICD-10) 02/22/2018 Unknown O09.90 - Supervision Marcanthony, Active [place] of high risk [facility] , Hospital unspecified, Repository unspecified trimester / O09.90(ICD-10) 02/22/2018 Unknown Z23 - Encounter for Manuel, Active [place] immunization / [place] [address](ICD-10) Hospital Repository 01/27/2018 Unknown M54.5 - Low back pain Marcanthony, Active [place] / M54.5(ICD-10) [facility] Hospital Repository 11/02/2017 Unknown O09.91 - Supervision Marcanthony, Active [place] of high risk [facility] , Hospital unspecified, first Repository trimester / O09.91(ICD-10) 11/02/2017 Unknown O30.041 - Twin Marcanthony, Active [place] , [facility], first trimester / Repository O30.041(ICD-10) 11/02/2017 Unknown Z3A.11 - 11 weeks Marcanthony, Active [place] gestation of [facility] / Hospital Z3A.11(ICD-10) Repository 10/21/2017 Unknown O46.90 - Antepartum Marcanthony, Active [place] hemorrhage, [facility] unspecified trimester Repository / O46.90(ICD-10) 01/15/2018 Unknown Z34.90 - Encounter Marcanthlars, Active [place] for supervision of [facility] normal , Hospital unspecified, Repository unspecified trimester / Z34.90(ICD-10) PROCEDURES PROCEDURES No Procedure Records FoundRESULTS RESULTS DISCHARGE INSTRUCTION Observed: 05/12/2018 Status: F Source: [place] 8:05 AM [facility] REPOSITORY [facility] Medical Records Department [address] [place] [address] [place] [address] Instructions for Home/Discharge Instructions 05/12/18 0803 MR#: [id number] Acct: [id number] Name: LOULOU YOU Rep #: [id number] : 1995 22 From: Bessie ALONSO PCP: Artruo Moon PA-C Status: ADM IN Additional Instructions: If you experience any of the following, contact your healthcare provider. * Bleeding that soaks a pad every hour for 2 hours * Fever 100.4 or higher * Unrelieved incision or abdominal pain * Swelling, redness, discharge or bleeding from your incision or episiotomy site * Your incision begins to separate * Problems urinating (including inability to urinate or burning while urinating). * Visual changes * Severe headache * Flu-like symptoms * Pain or redness in one of both of your breasts * Pain, warmth, tenderness or swelling in your legs, especially the calf area * Frequent nausea and vomiting * Symptoms of depression or anxiety If you experience any of the following, call 911 or go to the nearest Emergency Room. * Chest pain * Problems breathing * Seizure activity * Partial or complete paralysis of a body part, slurred speech, weakness or drooping of the face, or a sudden inability to walk or hold your balance Allergies/Adverse Reactions: Allergies Penicillins [PCN] Allergy (Verified 05/10/18 05:20) Rash Medications to take at Discharge vitamin,calcium,zgcyjarc-tgjn-tgrnw acid tablet 1 tab PO QDAY 10/07/17 Sertraline HCl [Zoloft] 50 mg PO DAILY 04/28/18 Naproxen [Naprosyn] 500 mg PO BID PRN PRN #60 tablet 05/12/18 Oxycodone HCl/Acetaminophen [Percocet 5/325] 1 - 2 tablet PO Q4H PRN PRN 7 Days #28 tablet 05/12/18 The following prescriptions were given: Oxycodone HCl/Acetaminophen [Percocet 5/325] 1 - 2 tablet PO Q4H PRN PRN 7 Days #28 tablet PRN Reason: Pain Naproxen [Naprosyn] 500 mg PO BID PRN PRN #60 tablet PRN Reason: Pain Follow-Up: Call to make an appointment with your doctor for an incision check in 1-2 weeks. You will also need a 6 week post- follow up appointment. Test results from this visit will be discussed in further detail at your follow-up appointment, if applicable. Primary Care Physician: Arturo Moon PA-C [Primary Care Provider] - 05/12/18 0805 <Electronically signed by Bessie ALONSO> Date Bessie ALONSO CC: ERIK Moon Signed CBC-COMPLETE BLOOD CNT Collected: 05/11/2018 Status: F Source: [place] NO DIFF 6:35 AM [facility] REPOSITORY Order Comment: Comments: Day #1 Reason for Laboratory Test TYPE CODE TESTS RESULT OUT OF RANGE REFERENCE UNITS LAB L100.1000 4.4-11.0 K/mm3 Normal WBC 10.1 LAB L100.1200 4.2-5.4 M/mm3 Low RBC 3.07 LAB L100.1300 12.0-15.0 g/dl Low HGB 9.7 LAB L100.1400 37-47 % Low HCT 29.1 LAB L100.1500 81-99 fL Normal MCV 94.8 LAB L100.1600 27.0-32.0 pg Normal MCH 31.6 LAB L100.1700 32-36 g/gl Normal MCHC 33.3 LAB L100.1810 11.6-14.6 % Normal RDW CV 13.1 LAB L100.1820 35.1-43.9 fl Normal RDW SD 43.0 LAB L100.1900 150-450 K/mm3 Low PLT 148 LAB L100.2000 6.2-12.0 fl Normal MPV 11.5 Performed By: #### L100.0500 #### [facility] [address] [place], [address] OPERATIVE REPORT Observed: 05/10/2018 Status: F Source: [place] 10:03 AM [facility] REPOSITORY [facility] Medical Records Department [address] [place] [address] Operative Report 05/10/18 0844 MR#: [id number] Acct: [id number] Name: LOULOU YOU Rep #: [id number] : 1995 22 From: Amee Schaffer MD PCP: Arturo Moon PA-C Status: ADM IN Y Location: [id number] Problem List (1) Multiple gestation with one or more malpresentations in third trimester Status: Acute Comment: plan LTCS- 05/10/18 ? (2) Status: Acute Qualifiers: Comment: MFM growth US renal pelvis dilation Twin A-refer to treament. Growth US every 4 weeks. testing 1x per week and daily kick counts due to BMI >40. (3) Obesity affecting Status: Acute Qualifiers: (4) Dichorionic diamniotic twin gestation Status: Acute Qualifiers: Comment: growth scans q 4 weeks after 26 weeks (5) Abnormal glucose Status: Acute Comment: nl 3 hour gtt (6) Supervision of high-risk Status: Chronic Qualifiers: Comment: PRR LITA 05/24/18 Andreina and Stefaniaovi coombscelinaifeanyi Alban Report of Operation Date of Procedure: 05/10/18 Pre-Operative Diagnosis: Di di twins breech breech presentation Post-Operative Diagnosis: Same Surgery/Procedure Performed:: Low transverse section Description of Surgical Findings:: Bilateral normal ovaries and tubes, mild uterine atony, both female infants and complete breech presentation quality improvement engineer: Estefany Caballero Type of Anesthesia:: Spinal Specimen's removed: female infants x 2 Drains: ramirez Estimated Blood Loss (mL): 900 Fluids Replaced: crystalloid Description of Procedure: The patient is a 22-year-old at 38 weeks with diamniotic dichorionic twins in breech breech presentation presented for by Zeinab . Spinal anesthesia was placed without difficulty. Ramirez catheter was placed. The patient was placed in the dorsal supine position with leftward tilt. Patient was prepped and draped in the normal sterile fashion. Pfannenstiel skin incision was made with the scalpel and carried through to the underlying layer of fascia with the scalpel. Fascia was nicked in the midline and the incision extended laterally. The rectus bellies were dissected off superiorly and inferiorly with out complication both sharply and bluntly. The peritoneum was entered digitally. The incision was stretched and a low transverse uterine incision was made with the scalpel. The 's buttocks was delivered followed by the rest the spontaneously without additional maneuvers without complication the rest of the delivered. The cord was clamped and cut and the was handed off to awaiting nurse. BPP's amniotic sac was ruptured of clear fluid and the buttocks was delivered followed by the rest of the infant without complication immediately following spontaneously. the placentas delivered spontaneously immediately following and were noted to be intact and have three-vessel cords. The uterus was exteriorized cleared of all clots and debris, and the incision was closed in a double layer closure using #1 Monocryl. Mild uterine atony was encountered and treated with Pitocin and Methergine. The uterus was returned to the maternal abdomen and gutters were cleared of all clots and debris. The ovaries and fallopian tubes were noted to be within normal limits. The peritoneum was closed with 3-0 Monocryl in a running fashion. Fascia was closed with 0 PDS in a running fashion. Subcutaneous tissue was copiously irrigated and the skin was closed with 3-0 Monocryl in a subcuticular fashion. Mepilex dressing were applied without complication. Patient was taken to recovery in stable condition. Grafts/Implants Used: none - Complications none - Admit VTE Documentation VTE Present on Admission: No 05/10/18 1003 <Electronically signed by Amee Schaffer MD> Date Amee Schaffer MD CC: ERIK Moon; Amee Schaffer MD Signed PATHOLOGY SPECIMEN OB Collected: 05/10/2018 Status: F Source: [place] 8:59 AM [facility] REPOSITORY Order Comment: Comments: twins di di Reason for Laboratory Test Placenta for Lab studies Send Specimen For (Specify): Studies @ [facility] Lab:Routine Time of Procedure: 846 Date of Procedure: 05/10/18 Reason specimen being sent to pathology (Hx/complications): twins Type of specimen: Placenta Type of procedure performed: TYPE CODE TESTS RESULT OUT OF RANGE REFERENCE UNITS LAB L350.1800 SEE Normal PATH. PATHOLOGY Spec. OB REPORT Result Comment: Specimen submitted to Anatomical Pathology Department for testing. Performed By: #### L350.1800 #### [facility] [place], [address] PLACENTA Observed: 05/10/2018 Status: F Source: [place] 8:47 AM [facility] REPOSITORY Patient: LOULOU YOU : 1995 () Acct Num: [id number] Phys: Manuel PUENTES,Amee Unit Num: [id number] Loc: WP [id number] Specimen: [id number] Received: 05/10/181101 Spec Type: PLACENTA TISSUES 1 TISSUES: Placenta, NOS GROSS DESCRIPTION SPECIMEN: TWIN PLACENTA / CLINICAL INFORMATION: A. Weight: A - 2.762 kg; B - 2.533 kg B. Gestational Age: 38 weeks C. Sex: A - Female, B - Female The specimen consists of two placental discs, two umbilical cords, peripheral membranes and a dividing membrane. One umbilical cord has a clamp on it and is designated as twin 1. Physical manipulation of the dividing membrane reveals four distinct membranes. Both peripheral membranes are ruptured at edge of placental disc. PLACENTA A: (Designated placenta 1 with clamp) PLACENTAL WEIGHT (POST FIXATION): 520 gm PLACENTAL DIMENSIONS: 22 x 16 x 3 cm PLACENTAL SHAPE: Usual ovoid PLACENTAL WEIGHT FOR GESTATIONAL AGE: Within 10-99th percentile (over/under percentile) MEMBRANES - Present A. Insertion: Marginal B. Site of rupture from edge: At edge of placental disc C. Color of membrane: Mac-pereira D. Abnormalities: None UMBILICAL CORD - Present A. Color: Mac-pereira B. Insertion: Marginal C. Length: 22 cm D. Diameter: 1 cm E. Number of vessels: Three F. Abnormalities: None PLACENTAL DISC - Present A. Color of surface: Mac-pereira B. surface abnormalities: None C. Maternal cotyledons: Intact with minimal tears D. Attached retro placental clot: No clot E. Cut surface: Dark red and spongy F. Lesions: Serial sections reveal a firm, plaque-like lesion measuring 1.5 x 1 cm close to the surface. G. Separate clot: Absent PLACENTA B: (placenta 2) PLACENTAL WEIGHT (POST FIXATION): 530 gm PLACENTAL DIMENSIONS: 17 x 15 x 3 cm PLACENTAL SHAPE: Usual ovoid PLACENTAL WEIGHT FOR GESTATIONAL AGE: Within 10-99th percentile (over/under percentile) MEMBRANES - Present A. Insertion: Marginal B. Site of rupture from edge: At edge of placental disc C. Color of membrane: Mac-pereira D. Abnormalities: None UMBILICAL CORD - Present A. Color: Mac-pereira B. Insertion: Eccentric C. Length: 20 cm D. Diameter: 1.5 cm E. Number of vessels: Three F. Abnormalities: None PLACENTAL DISC - Present A. Color of surface: Mac-pereira B. surface abnormalities: None C. Maternal cotyledons: Intact with minimal tears D. Attached retro placental clot: No clot E. Cut surface: Dark red and spongy F. Lesions: None G. Separate clot: Absent SECTIONS SUBMITTED: 1 - Dividing membrane 2 - Peripheral membrane placenta #1 3-5 - Placental disc #1 with 3 containing the lesion 6 - Umbilical cord and membranes disc #2 7-9 - Placental disc #2 AM:mark 05/11/18 TC:5 CPT: 23601 x2 HEADER OPERATION: section PRE-OP DIAGNOSIS: Twins TISSUE SUBMITTED: Placenta MICROSCOPIC DESCRIPTION Slides are reviewed. MICROSCOPIC DIAGNOSIS Twin Placenta A, section: Diamniotic-dichorionic twin placenta, 520 gm. Placental weight and villous maturation consistent with gestational age. Small placental hematomas, maximal 1.5 cm. Intervillous fibrin deposition with calcification. Three-vessel umbilical cord. membranes, negative for inflammation. Twin Placenta B, section: Diamniotic-dichorionic twin placenta, 530 gm. Placental weight and villous maturation consistent with gestational age. Small placental hematoma, 0.5 cm. Fibromuscular hyperplasia of stem villous blood vessels. Mild intervillous fibrin deposition with calcification. Three-vessel umbilical cord. membranes, negative for inflammation. CE:mark 05/12/18 Signed Tony Norman MD <signature on file> Performed By: #### PPLAC #### [facility] [address] [place], [address] HISTORY AND PHYSICAL Observed: 05/10/2018 Status: F Source: [place] EXAM 8:44 AM [facility] REPOSITORY [facility] Medical Records Department [address] [place] [address] History and Physical 05/10/18 0837 MR#: [id number] Acct: [id number] Name: LOULOU YOU Rep #: [id number] : 1995 22 From: Amee Schaffer MD PCP: Arturo Moon PA-C Status: ADM IN Y Location: ZQ161-6 - Problem List (1) Multiple gestation with one or more malpresentations in third trimester Status: Acute Comment: plan LTCS- 05/10/18 ? (2) Status: Acute Qualifiers: Comment: MFM growth US renal pelvis dilation Twin A-refer to treament. Growth US every 4 weeks. testing 1x per week and daily kick counts due to BMI >40. (3) Obesity affecting Status: Acute Qualifiers: (4) Dichorionic diamniotic twin gestation Status: Acute Qualifiers: Comment: growth scans q 4 weeks after 26 weeks (5) Abnormal glucose Status: Acute Comment: nl 3 hour gtt (6) Supervision of high-risk Status: Chronic Qualifiers: Comment: PRR LITA 05/24/18 Andreina and Stefania boyfriend Alban History Date of Admission: 05/10/18 Final LITA: 05/24/18 Gestational age: 38 Weeks and 0 Days History of this : This is a 22 year-old, , at 38 weeks gestational age presents for LTCS. Medical History: Medical History (Last Reviewed 05/04/18 @ 16:04 by Edilia Briggs) Anxiety and depression F41.9, F32.9 Allergies Penicillins [PCN] Allergy (Verified 05/10/18 05:20) Rash Home Medications: Home Medications vitamin,calcium,olaiuftw-bbni-tdgtr acid tablet 1 tab PO QDAY 10/07/17 Sertraline HCl [Zoloft] 50 mg PO DAILY 04/28/18 Smoking Status: Never smoker Alcohol: None Number of Fetus(es): 2 Heart Tracins x 2 History Past Pregnancies: Past Pregnancies Delivery Name GA/Weeks Outcome Route WeiInfant GeLabor LenAnesthesiDelivery Provider FOB Date ght nder [facility] [place] [facility] Location Labs: Mom's Labs AND Results WBC 12.8 H RBC 4.05 L Course Did the patient receive Yes care? Labs Blood Type: O Current Obstetrical History Gestational Diabetes No Incompetent Cervix No Infertility No IUGR No Macrosomia No Hypertension/Pre-eclampsia No Placenta Previa/Abruption No PTL/PROM No Uterine anomaly No Oligohydramnios No Polyhydramnios No Multiple gestation Yes: twins Past Medical History Asthma No Diabetes No Hypertension No Heart disease No Mitral valve prolapse No Neurologic/Seizure disorder/ No Migraines Kidney disease No Liver disease No Varicosities No Clotting disorders/Hx of DVT No Thyroid Dysfunction No Other medical diseases Yes: taking zoloft Psychiatric disorders No Major trauma No Abnormal PAP smear No Sleep apnea No Mammogram in the last 2 years No Social History Marital Status: SINGLE Alleged father Alban Hx Smoking No Smoking Status Never smoker Review of Systems Constitutional: Denies: Fever, Malaise Eyes: Denies: Blurred vision, Vision Change HEENT: Denies: Head Aches, Visual Changes Cardiovascular: Denies: Chest Pain, Palpitations Respiratory: Denies: Cough, Shortness of Breath, Wheezing Gastrointestinal: Denies: Abdominal Pain, Diarrhea, Nausea, Vomiting Genitourinary: Denies: Dysuria, Hematuria Musculoskeletal: Denies: Joint Pain, Muscle pain Skin: Denies: Lesions, Rash Neurological: Denies: Blurred vision, Focal weakness, Headaches Psychiatric: Denies: Anxiety, Depression Endocrine: Denies: Heat/ Cold Intolerance Hematologic/ Lymphatic: Denies: Easy Bruising, Easy Bleeding Physical Exam General: Alert, Cooperative, No apparent distress HEENT: Atraumatic, Normocephalic. Negative for: Thyromegaly, Lymphadenopathy Cardiovascular: Regular rate Lungs: Normal air movement Abdomen: Soft, Non Tender, Gravid Neurological: Deep Tendon Reflexes 2+/4 and Symmetrical, Neuro grossly intact. Negative for: Clonus HOME CARE RN: Normal external genitalia. Negative for: Vulvar lesions Estimated gestational size: Appropriate for gestational size Presentation: Cephalic Assessment/Plan All Active Problems (Last Reviewed 05/04/18 @ 16:04 by Edilia Briggs) Threatened labor (Acute) Multiple gestation with one or more malpresentations in third trimester (Acute) (Acute) Obesity affecting (Acute) Dichorionic diamniotic twin gestation (Acute) Abnormal glucose (Acute) BMI greater than 40 (Resolved) Imperforate hymen (Resolved) This is a 22 year-old, , at 38 weeks gestational age with twins malpresentation plan LTCS for malpresentation 05/10/18 0844 <Electronically signed by Amee Schaffer MD> Date Amee Schaffer MD [facility] Signature: Date (if applicable) CC: ERIK Moon; Amee Schaffer MD Signed CBC-COMPLETE BLOOD CNT Collected: 05/10/2018 Status: F Source: [place] NO DIFF 5:25 AM [facility] REPOSITORY TYPE CODE TESTS RESULT OUT OF RANGE REFERENCE UNITS LAB L100.1000 4.4-11.0 K/mm3 High WBC 12.8 LAB L100.1200 4.2-5.4 M/mm3 Low RBC 4.05 LAB L100.1300 12.0-15.0 g/dl Normal HGB 12.7 LAB L100.1400 37-47 % Normal HCT 37.2 LAB L100.1500 81-99 fL Normal MCV 91.9 LAB L100.1600 27.0-32.0 pg Normal MCH 31.4 LAB L100.1700 32-36 g/gl Normal MCHC 34.1 LAB L100.1810 11.6-14.6 % Normal RDW CV 12.8 LAB L100.1820 35.1-43.9 fl Normal RDW SD 41.8 LAB L100.1900 150-450 K/mm3 Normal PLT 186 LAB L100.2000 6.2-12.0 fl High MPV 12.1 Performed By: #### L100.0500 #### [facility] [address] [place], [place], [id number] TYPE AND SCREEN Collected: 05/10/2018 Status: F Source: [place] 5:25 AM [facility] REPOSITORY Order Comment: Reason for Type AND Screen/Red Cells: TYPE CODE TESTS RESULT OUT OF RANGE REFERENCE UNITS LAB B10.0800 O Normal BLOOD TYPE GEL POSITIVE LAB B100.4000 Normal Antibody NEGATIVE Screen Performed By: #### B101.7450 #### [facility] [address] [place], [address] MANAGER DISCOVERY OFFICE VISIT Observed: 05/04/2018 Status: F Source: [place] REPORT 4:40 PM [facility] REPOSITORY [facility] [place] [facility] 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 Is patient in pain?: No Allergies Penicillins [PCN] Allergy (Verified 05/04/18 16:03) Rash Medications vitamin,calcium,tendjdkp-zkiw-ukags acid tablet 1 tab PO QDAY 10/07/17 [History Confirmed 05/04/18] Sertraline HCl [Zoloft] 50 mg PO DAILY 04/28/18 [History Confirmed 05/04/18] nitrofurantoin monohydrate/macrocrystals 100 mg capsule 100 mg PO BID 7 Days #14 cap 04/28/18 [Rx Confirmed 05/04/18] Last Menstral Period: 08/17/17 Zika: Zika virus screening: Negative : No PFSH PFSH Medical History Anxiety and depression (Acute) Family History Grandfather Cancer lung throat- smoker Father Diabetes Social History Smoking Status: Never smoker alcohol intake: never substance use type: does not use caffeine: No what type of physical activity do you participate in: walking frequency: 1-2 times per week seatbelt use: always do you feel safe at home: Yes additional social history: Boyfriend Alban- Dynamite Packing Machine Operator Patient works at [employer] Pregancy History 1 Elective abortions Hx Para Spontaneous abortions HPI OB/NEEDS CSECTION PACKET/SOAP: Details: LOULOU YOU is a 22 year old who presents for routine OB visit. OB Visit LITA Calculator Estimated Delivery Date 05/24/18 Based on LMP (certain) 08/17/17 Current WG 37w 1d Number 2 Expected Delivery Route/Plan LTCS for breech presentation Specific Issue/Plans flu vaccine: given tdap vaccine: given rhogam: na LARC form signed: declines labor support person: alban pain management: cut cord/dad catch: : no PP control planned: iud at 6 week PP special requests: none Initial Weight: 249 lb Date Weight BP Urine PFHR FuHt Pres MCTX DilatioFetal SVisit NProvideComment rot ov n t ote r s EGA Ef Gluco faced se 10/07/1248 lb 119/73 A A A A A 8 8 oz (+ 7w8 oz) B B B B B 2d Visit Notes Visit Date: 05/04/18 no vb lof good fm n oergular ctx Amee Schaffer MD on 05/04/18 Visit Date: 04/21/18 no vb lof goo fm no regular ctx Amee Schaffer MD on 04/21/18 Visit Date: 04/07/18 no vb lof good fm no regualr ctx Amee Schaffer MD on 04/10/18 Visit Date: 03/22/18 no vb lof good fm no regular ctx. Amee Schaffer MD on 03/22/18 Visit Date: 03/08/18 no vb cramping. Amee Schaffer MD on 03/08/18 Visit Date: 02/22/18 no vb cramping lof us scheduled Amee Schaffer MD on 02/22/18 Visit Date: 01/27/18 co some spotting this morning while wiping- nothing since, nothing on exam and cervix closed. reassurance given Amee Schaffer MD on 01/27/18 Visit Date: 01/25/18 no vb lof cramping Amee Schaffer MD on 01/25/18 Visit Date: 12/29/17 no vb lof cramping, us scheduled Amee Schaffer MD on 12/30/17 Visit Date: 11/30/17 no vb cramping doing well, schedule anatomy us with [facility] Amee Schaffer MD on 11/30/17 Visit Date: 11/02/17 no vb cramping nausea improved Amee Schaffer MD on 11/02/17 Visit Date: 10/20/17 had episode of vb today brown pink discharge. us shows small subchorionic hemorrhage viable iups x 2 seen Amee Schaffer MD on 10/20/17 Visit Date: 10/19/17 no vb cramping, neds 3 hour gtt Amee Schaffer MD on 10/19/17 Visit Date: 10/07/17 No visit notes to display ACOG First Trimester First Trimester: Desire for , Alcohol, Tobacco Cessation, Illicit/Recreational Drug/Substance Use, Intimate Partner Violence, Barriers to care, Unstable Housing, Communication Barriers, Environmental/Work Hazards, Anticipated Course of Care, Toxoplasmosis Precations, Use of Any medications, Sexual activity, Exercise, Dental Care, Sauna/Hot tub use, Seat Belt use, Childbirth classes/Hospital facilities, Travel, Indications for US, Screening for Aneuploidy and Second Trimester Second Trimester: Signs and Symptoms of Labor, Selecting a care provider, Reproductive Life Planning, Care Planning, Tobacco Cessation, Depression/Anxiety and Intimate Partner Violence Third Trimester Third Trimester: Pain Management Plans, Labor support person(s), Immediate Larc, Movement Monitoring and Infant Feeding Yes ; discussed Trial of Labor after Counseling or discussed Circumcision preference Diagnostics Diagnostics Labs Hct 34.7 % (37-47) L 02/22/18 Hgb 12.0 g/dl (12.0-15.0) 02/22/18 Glucose 1 Hr 50 gm 122 mg/dL (70-140) 02/22/18 Details: HIV: Urine Culture: Sequential Screen: NIPT Screen: ROS Const Reports system reviewed and no additional complaints, except as docu Card Reports system reviewed and no additional complaints, except as docu Resp Reports system reviewed and no additional complaints, except as docu GI Reports system reviewed and no additional complaints, except as docu, Reports nausea Reports system reviewed and no additional complaints, except as docu Musc Reports system reviewed and no additional complaints, except as docu Exam Const General: cooperative, healthy appearing, comfortable, anxious HENMT Head: normal to inspection Nose: external nose normal Face and sinus: normal facial exam Neck Neck: normal visual inspection, full ROM, no lymphadenopathy Thyroid: thyroid normal Chest Chest palpation AND inspection: normal inspection of the chest Resp Effort AND Inspection: normal respiratory effort GI Inspection: normal to inspection Palpation: soft, other (gravid uterus) Other: vertex and appropriate size for gestational age Other: Cervical Exam: Extrem General: pedal edema Results [id number] Office Urine Glucose Negative Last Edit by Edilia Briggs on 05/04/18 16:13 Office Urine Protein Negative Last Edit by Edilia Briggs on 05/04/18 16:13 Assessment AND Plan Problems 1. Multiple gestation with one or more malpresentations in third trimester O30.93; O32.9XX0 plan LTCS- 05/10/18 ? 2. 37 weeks gestation of Z3A.37 MFM growth US renal pelvis dilation Twin A-refer to treament. Growth US every 4 weeks. testing 1x per week and daily kick counts due to BMI >40. 3. Obesity affecting in third trimester O99.213 4. Dichorionic diamniotic twin in third trimester O30.043 growth scans q 4 weeks after 26 weeks 5. Abnormal glucose R73.09 nl 3 hour gtt 6. Supervision of high risk in third trimester O09.93 PRR LITA 05/24/18 Tracey [place] Plan ACOG trimester education reviewed and updated. see problem list details for updated plan management information and see below for orders placed at this visit. GA appropriate handout given. movement and labor precautions reviewed. Orders Orders: Coding Level of Care Code OB Routine Diagnoses Multiple gestation with one or more malpresentations in third trimester O30.93; O32.9XX0 37 weeks gestation of Z3A.37 Weeks of gestation: 37 weeks Obesity affecting in third trimester O99.213 Trimester: third trimester Dichorionic diamniotic twin in third trimester O30.043 Trimester: third trimester Abnormal glucose R73.09 Supervision of high risk in third trimester O09.93 Trimester: third trimester 05/04/18 1640 <Electronically signed by Amee Schaffer MD> Date [facility] Signature: Date (if applicable) CC: URINALYSIS, ROUTINE Collected: 04/28/2018 Status: F Source: [place] ([place]) 11:40 AM [facility] REPOSITORY Order Comment: How was Urine Obtained? LEATHER SORTER TO SPECIFY TYPE CODE TESTS RESULT OUT OF RANGE REFERENCE UNITS LAB L400.3000 Yellow COLOR Normal Yellow LAB L400.3050 Clear Normal CLARITY Cloudy LAB L400.3200 Normal mg/dl Normal GLUCOSE, UR Normal LAB L400.3300 Negative mg/dL Normal BILIRUBIN URINE Negative LAB L400.3400 Negative mg/dl Normal KETONE UR Negative LAB L400.3465 1.002-1.030 Normal SP.GR. DIPSTX 1.020 LAB L400.3550 5.0 - 8.0 pH UR Normal 6.5 LAB L400.3600 Negative mg/dl High PROT 15 DIPSTX LAB L400.3700 Normal mg/dl High 1 UROBILI LAB L400.3750 Negative Normal NITRITE UR Negative LAB L400.3780 Negative /ul Normal OCCULT BLOOD-UR Negative LAB L400.3800 Negative /ul High LEUK ESTERASE 500 Performed By: #### L400.2010 #### [facility] [address] [place], [address] MANAGER DISCOVERY OFFICE VISIT Observed: 04/21/2018 Status: F Source: [place] REPORT 2:16 PM [facility] REPOSITORY [facility] [address] [place] [address] OFFICE VISIT Date of Service: 04/21/18 MR#: [id number] Acct: [id number] Name: LOULOU YOU Rep #: [id number] : 1995 Provider: Amee Schaffer MD Age/Sex: 22/F [place] [facility] [place] Status: Signed Intake Vital Signs04/21/18 Height 5 ft 3 in 04/21/18 Weight: 249 lb 04/21/18 Body Mass Index (BMI) 44.1 04/21/18 Blood Pressure 120/78 Intake Visit Reasons: 35 WEEK OB Chief Complaint: est ob Land [employer] Chief Required: No Is patient in pain?: No Allergies Penicillins [PCN] Allergy (Verified 04/21/18 13:54) Rash Medications vitamin,calcium,iboaumdf-rvst-exloi acid tablet 1 tab PO QDAY 10/07/17 [History Confirmed 04/21/18] sertraline 50 mg tablet 50 mg PO DAILY #30 tab 01/20/18 [Rx Confirmed 04/21/18] Last Menstral Period: 08/17/17 Zika: Zika virus screening: Negative : No PFSH PFSH Medical History Anxiety and depression (Acute) Family History Grandfather Cancer lung throat- smoker Father Diabetes Social History Smoking Status: Never smoker alcohol intake: never substance use type: does not use caffeine: No what type of physical activity do you participate in: walking frequency: 1-2 times per week seatbelt use: always do you feel safe at home: Yes additional social history: Boyfriend Alban- Dynamite Packing Machine Operator Patient works at [employer] Pregancy History 1 Elective abortions Hx Para Spontaneous abortions HPI 35 WEEK OB: Details: LOULOU YOU is a 22 year old who presents for routine OB visit. OB Visit LITA Calculator Estimated Delivery Date 05/24/18 Based on LMP (certain) 08/17/17 Current WG 35w 2d Number 2 Expected Delivery Route/Plan LTCS for breech presentation Specific Issue/Plans flu vaccine: given tdap vaccine: given rhogam: na LARC form signed: declines labor support person: alban pain management: cut cord/dad catch: : no PP control planned: iud at 6 week PP special requests: none Initial Weight: 249 lb Date Weight BP Urine PrFHR FuHt Pres MoCTX DilationFetal StVisit NoProviderComments E ot v te GA G Effac lucose ed Visit Notes Visit Date: 04/21/18 no vb lof goo fm no regular ctx Amee Schaffer MD on 04/21/18 Visit Date: 04/07/18 no vb lof good fm no regualr ctx Amee Schaffer MD on 04/10/18 Visit Date: 03/22/18 no vb lof good fm no regular ctx. Amee Schaffer MD on 03/22/18 Visit Date: 03/08/18 no vb cramping. Amee Schaffer MD on 03/08/18 Visit Date: 02/22/18 no vb cramping lof us scheduled Amee Schaffer MD on 02/22/18 Visit Date: 01/27/18 co some spotting this morning while wiping- nothing since, nothing on exam and cervix closed. reassurance given Amee Schaffer MD on 01/27/18 Visit Date: 01/25/18 no vb lof cramping Amee Schaffer MD on 01/25/18 Visit Date: 12/29/17 no vb lof cramping, us scheduled Amee Schaffer MD on 12/30/17 Visit Date: 11/30/17 no vb cramping doing well, schedule anatomy us with M Amee Schaffer MD on 11/30/17 Visit Date: 11/02/17 no vb cramping nausea improved Amee Schaffer MD on 11/02/17 Visit Date: 10/20/17 had episode of vb today brown pink discharge. us shows small subchorionic hemorrhage viable iups x 2 seen Amee Schaffer MD on 10/20/17 Visit Date: 10/19/17 no vb cramping, neds 3 hour gtt Amee Schaffer MD on 10/19/17 Visit Date: 10/07/17 No visit notes to display ACOG First Trimester First Trimester: Desire for , Alcohol, Tobacco Cessation, Illicit/Recreational Drug/Substance Use, Intimate Partner Violence, Barriers to care, Unstable Housing, Communication Barriers, Environmental/Work Hazards, Anticipated Course of Care, Toxoplasmosis Precations, Use of Any medications, Sexual activity, Exercise, Dental Care, Sauna/Hot tub use, Seat Belt use, Childbirth classes/Hospital facilities, , Travel, Indications for US and Screening for Aneuploidy Diagnostics Diagnostics Labs Hct 34.7 % (37-47) L 02/22/18 Hgb 12.0 g/dl (12.0-15.0) 02/22/18 Chlam trachomat DNA PCR Negative (Negative) 10/07/17 N.gonorrhoeae DNA (PCR) Negative (Negative) 10/07/17 Glucose 1 Hr 50 gm 122 mg/dL (70-140) 02/22/18 Details: HIV: Urine Culture: Sequential Screen: NIPT Screen: Results [id number] Office Urine Glucose Negative Last Edit by Edilia Briggs on 04/21/18 13:59 Office Urine Protein Trace Last Edit by Edilia Briggs on 04/21/18 13:59 Assessment AND Plan Problems 1. Obesity affecting in third trimester O99.213 2. Abnormal glucose R73.09 nl 3 hour gtt 3. Supervision of high risk in third trimester O09.93 PRR LITA 05/24/18 Andreina and Stefania Hurst 4. Dichorionic diamniotic twin in third trimester O30.043 growth scans q 4 weeks after 26 weeks 5. Multiple gestation with one or more malpresentations in third trimester O30.93; O32.9XX0 plan LTCS- 05/10/18 ? Plan movement and labor precautions reviewed. ACOG trimester education reviewed and updated. see problem list details for updated plan management information and see below for orders placed at this visit. GA appropriate handout given. Orders Orders: Coding Level of Care Code OB Routine Diagnoses Obesity affecting in third trimester O99.213 Trimester: third trimester Abnormal glucose R73.09 Supervision of high risk in third trimester O09.93 Trimester: third trimester Dichorionic diamniotic twin in third trimester O30.043 Trimester: third trimester Multiple gestation with one or more malpresentations in third trimester O30.93; O32.9XX0 04/21/18 1416 <Electronically signed by Amee Schaffer MD> Date Amee Schaffer MD Cosigner Signature: Date (if applicable) CC: PROGRESS NOTE Observed: 04/14/2018 Status: COMPLETED Source: [place] 10:45 AM [facility] REPOSITORY Loulou You is here for consultation at the request of Arturo Moon PA-C for: Fluid In Kidney (Corridor Redevelopment Manager/Fetus A dialated kidney) History of Presenting Problem: Due 05/24 at [place]. Baby A with dilated kidney and ureter. Both A and B appear to be female. Noted last week. Amniotic fluid normal. No family history of anomaly. Past Medical History: Past Medical History: Diagnosis Date Anxiety Breast disorder Right side pt has lumps Depression hydronephrosis in , antepartum condition 04/14/2018 Obesity Seasonal allergies History reviewed. No pertinent surgical history. Allergies: Allergies Allergen Reactions Pcn [Penicillins] Rash Medications: Outpatient Encounter Medications as of 04/14/2018 Medication Sig Dispense Refill sertraline (ZOLOFT) 50 MG tablet Take by mouth daily Vit w/Om-Mtjcluwmj-GJ (PNV PO) Take 1 Tab by mouth daily citalopram (CELEXA) 20 MG tablet Take 20 mg by mouth daily No facility-administered encounter medications on file as of 04/14/2018. Family Medical History: Family History Problem Relation Age of Onset Diabetes Mellitus II Father Heart Disease Father Cancer Sister Breast Cancer Paternal Grandmother Kidney Thyroid Disease Paternal Grandmother Emphysema Paternal Grandfather Social History: Social History Socioeconomic History Marital status: Single Spouse name: Not on file Number of children: Not on file Years of education: Not on file Highest education level: Not on file Social Needs Financial resource strain: Not on file Food insecurity - worry: Not on file Food insecurity - inability: Not on file Transportation needs - medical: Not on file Transportation needs - non-medical: Not on file Occupational History Not on file Tobacco Use Smoking status: Passive Smoke Exposure - Never Smoker Smokeless tobacco: Never Used Substance and Sexual Activity Alcohol use: No Drug use: No Sexual activity: Never Other Topics Concern Not on file Social History Narrative Not on file Additional History Is the patient on a special diet? No Per parents, immunizations are up to date. Yes Patient lives with? Mother Review of Systems: A comprehensive review of systems was negative. No fever or cough today. Physical Examination: Vitals: 04/14/18 1006 Weight: (!) 112.3 kg General: Well appearing Eyes: Pupils equal, conjunctivae normal ENT: Ears normal, no nasal discharge Resp: Normal effort, no wheezing Heart: no cyanosis Lymphatic: No cervical or inguinal lymphadenopathy Abdomen: Non-tender, no masses Musculoskeletal: Normocephalic head, no lower extremity weakness Neurologic: Normal sensation Skin: Warm and dry to palpation, no rash Laboratory Testing: No results found for this visit on 04/14/18. No results found for this or any previous visit. No results found for: CREATININE, BUN, NA, K, CL, CO2 Imaging: See above Assessment & Plan: Loulou was seen today for fluid in kidney. 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 Consent to share information with [facility] team, OB and correspondence school instructor signed. Pt plans to deliver at [place] with Dr. Schaffer. Sales Representative Meats is [place]. Female fetus- names are Andreina and Stefania but has yet to decide who will be who Method of feeding: formula Ultrasound findings today: See report in procedures for details. consultation with Urologist today per pt request. Pt will follow up weekly for surveillance and monthly evaluation of growth and renals Reinforced continued OB care with Dr. Schaffer Delivery at 38 weeks due to twins The total patient time of the visit was 5 minutes, of which greater than 50% of the time was spent counseling and coordinating care. PROGRESS NOTE Observed: 04/14/2018 Status: COMPLETED Source: [place] 9:15 AM [facility] Patient was seen by [facility] due to unilateral UTDA2-3 (pyelectasis and hydroureter). The total patient time of the visit was 15 minutes, of which greater than 50% of the time was spent counseling and coordinating care. MANAGER DISCOVERY OFFICE VISIT Observed: 04/10/2018 Status: F Source: [place] REPORT 3:50 AM [facility] REPOSITORY [facility] [place] [facility] [address] [place] [address] OFFICE VISIT Date of Service: 04/07/18 MR#: [id number] Acct: [id number] Name: LOULOU YOU Rep #: [id number] : 1995 Provider: Amee Schaffer MD Age/Sex: 22/F [place] [facility] [place]: Signed Intake Vital Signs04/07/18 Body Mass Index (BMI) 44.2 04/07/18 Height 5 ft 3 in 04/07/18 Weight: 248 lb 04/07/18 Body Mass Index (BMI) 43.9 04/07/18 Blood Pressure 112/70 Intake Visit Reasons: 33 weeks twins Chief Complaint: est ob [employer] Chief Required: No Is patient in pain?: No Allergies Penicillins [PCN] Allergy (Verified 04/07/18 16:23) Rash Medications vitamin,calcium,qajwmgeq-zcqb-txouu acid tablet 1 tab PO QDAY 10/07/17 [History Confirmed 04/07/18] sertraline 50 mg tablet 50 mg PO DAILY #30 tab 01/20/18 [Rx Confirmed 04/07/18] Last Menstral Period: 08/17/17 Zika: Zika virus screening: Negative : No PFSH PFSH Medical History Anxiety and depression (Acute) Family History Grandfather Cancer lung throat- smoker Father Diabetes Social History Smoking Status: Never smoker alcohol intake: never substance use type: does not use caffeine: No what type of physical activity do you participate in: walking frequency: 1-2 times per week seatbelt use: always do you feel safe at home: Yes additional social history: Boyfriend Alban- Dynamite Packing Machine Operator Patient works at [employer] Pregancy History 1 Elective abortions Hx Para Spontaneous abortions HPI 33 weeks twins: Details: LOULOU YOU is a 22 year old who presents for routine OB visit. OB Visit LITA Calculator Estimated Delivery Date 05/24/18 Based on LMP (certain) 08/17/17 Current WG 33w 5d Number 2 Expected Delivery Route/Plan Specific Issue/Plans flu vaccine: given tdap vaccine: given rhogam: na LARC form signed: [] labor support person: [] pain management: [] cut cord/dad catch: [] : [] PP control planned: [] special requests: [] Initial Weight: 249 lb Date Weight BP Urine PrFHR FuHt Pres MoCTX DilationFetal StVisit NoProviderComments E ot v te [place] G Effac lucose ed Visit Notes Visit Date: 04/07/18 no vb lof good fm no regualr ctx Amee Schaffer MD on 04/10/18 Visit Date: 03/22/18 no vb lof good fm no regular ctx. Amee Schaffer MD on 03/22/18 Visit Date: 03/08/18 no vb cramping. Amee Schaffer MD on 03/08/18 Visit Date: 02/22/18 no vb cramping lof us scheduled Amee Schaffer MD on 02/22/18 Visit Date: 01/27/18 co some spotting this morning while wiping- nothing since, nothing on exam and cervix closed. reassurance given Amee Schaffer MD on 01/27/18 Visit Date: 01/25/18 no vb lof cramping Amee Schaffer MD on 01/25/18 Visit Date: 12/29/17 no vb lof cramping, us scheduled Amee Schaffer MD on 12/30/17 Visit Date: 11/30/17 no vb cramping doing well, schedule anatomy us with M Amee Schaffer MD on 11/30/17 Visit Date: 11/02/17 no vb cramping nausea improved Amee Schaffer MD on 11/02/17 Visit Date: 10/20/17 had episode of vb today brown pink discharge. us shows small subchorionic hemorrhage viable iups x 2 seen Amee Schaffer MD on 10/20/17 Visit Date: 10/19/17 no vb cramping, neds 3 hour gtt Amee Schaffer MD on 10/19/17 Visit Date: 10/07/17 No visit notes to display ACOG First Trimester First Trimester: Desire for , Alcohol, Tobacco Cessation, Illicit/Recreational Drug/Substance Use, Intimate Partner Violence, Barriers to care, Unstable Housing, Communication Barriers, Environmental/Work Hazards, Anticipated Course of Care, Toxoplasmosis Precations, Use of Any medications, Sexual activity, Exercise, Dental Care, Sauna/Hot tub use, Seat Belt use, Childbirth classes/Hospital facilities, , Travel, Indications for US and Screening for Aneuploidy Diagnostics Diagnostics Labs Blood Type O POSITIVE 10/07/17 Antibody Screen NEGATIVE 10/07/17 Hct 34.7 % (37-47) L 02/22/18 Hgb 12.0 g/dl (12.0-15.0) 02/22/18 Rubella IgG Antibody 141.1 IU/mL 10/07/17 RPR NONREACTIVE (NONREACTIVE) 10/07/17 Hep Bs Antigen Negative (Negative) 10/07/17 Chlam trachomat DNA PCR Negative (Negative) 10/07/17 N.gonorrhoeae DNA (PCR) Negative (Negative) 10/07/17 Glucose 1 Hr 50 gm 122 mg/dL (70-140) 02/22/18 Details: HIV: Urine Culture: Sequential Screen: NIPT Screen: Assessment AND Plan Problems 1. Abnormal glucose R73.09 nl 3 hour gtt 2. Supervision of high risk in third trimester O09.93 PRR LITA 05/24/18 Andreina and Stefania boyfrienifeanyi [place] 3. Dichorionic diamniotic twin in third trimester O30.043 growth scans q 4 weeks after 26 weeks 4. Obesity affecting in third trimester O99.213 Plan movement and labor precautions reviewed. ACOG trimester education reviewed and updated. see problem list details for updated plan management information and see below for orders placed at this visit. [place] appropriate handout given. Orders Orders: Coding Level of Care Code OB Routine Diagnoses Abnormal glucose R73.09 Supervision of high risk in third trimester O09.93 Trimester: third trimester Dichorionic diamniotic twin in third trimester O30.043 Trimester: third trimester Obesity affecting in third trimester O99.213 Trimester: third trimester 04/10/18 0350 <Electronically signed by Amee Schaffer MD> Date Amee Schaffer MD Cosigner Signature: Date (if applicable) CC: MANAGER DISCOVERY OFFICE VISIT Observed: 03/22/2018 Status: F Source: [place] REPORT 5:02 PM [facility] [address] [place] [address] OFFICE VISIT Date of Service: 03/22/18 MR#: [id number] Acct: [id number] Name: LOULOU YOU Rep #: [id number] : 1995 Provider: Amee Schaffer MD Age/Sex: 22/F [place] [facility] [place]: Signed Intake Vital Signs03/22/18 Body Mass Index (BMI) 44.2 03/22/18 Height 5 ft 3 in 03/22/18 Weight: 248 lb 4 oz 03/22/18 Body Mass Index (BMI) 43.9 03/22/18 Blood Pressure 124/78 H Intake Visit Reasons: 31 WEEK OB Land [employer] Chief Required: No Is patient in pain?: Yes (Pt. having random back pain lower middle) Pain scale (1-10): 4 Allergies Penicillins [PCN] Allergy (Verified 03/22/18 16:23) Rash Medications vitamin,calcium,efvabgkl-qafd-gmjml acid tablet 1 tab PO QDAY 10/07/17 [History Confirmed 03/22/18] metoclopramide 10 mg tablet 10 mg PO TID PRN #90 tab 10/26/17 [Rx Confirmed 03/22/18] sertraline 50 mg tablet 50 mg PO DAILY #30 tab 01/20/18 [Rx Confirmed 03/22/18] Last Menstral Period: 08/17/17 Zika: Zika virus screening: Negative : No PFSH PFSH Medical History Anxiety and depression (Acute) Family History Grandfather Cancer lung throat- smoker Father Diabetes Social History Smoking Status: Never smoker alcohol intake: never substance use type: does not use caffeine: No what type of physical activity do you participate in: walking frequency: 1-2 times per week seatbelt use: always do you feel safe at home: Yes additional social history: Boyfriend 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 OB Visit LITA Calculator Estimated Delivery Date 05/24/18 Based on LMP (certain) 08/17/17 Current WG 31w 0d Number 2 Expected Delivery Route/Plan Specific Issue/Plans flu vaccine: given tdap vaccine: given rhogam: na LARC form signed: [] labor support person: [] pain management: [] cut cord/dad catch: [] : [] PP control planned: [] special requests: [] Initial Weight: 249 lb Date Weight BP Urine PrFHR FuHt Pres MoCTX DilationFetal StVisit NoProviderComments E ot v te [place] G Effac lucose ed Visit Notes Visit Date: 03/22/18 no vb lof good fm no regular ctx. Amee Schaffer MD on 03/22/18 Visit Date: 03/08/18 no vb cramping. Amee Schaffer MD on 03/08/18 Visit Date: 02/22/18 no vb cramping lof us scheduled Amee Schaffer MD on 02/22/18 Visit Date: 01/27/18 co some spotting this morning while wiping- nothing since, nothing on exam and cervix closed. reassurance given Amee Schaffer MD on 01/27/18 Visit Date: 01/25/18 no vb lof cramping Amee Schaffer MD on 01/25/18 Visit Date: 12/29/17 no vb lof cramping, us scheduled Amee Schaffer MD on 12/30/17 Visit Date: 11/30/17 no vb cramping doing well, schedule anatomy us with [facility] Amee Schaffer MD on 11/30/17 Visit Date: 11/02/17 no vb cramping nausea improved Amee Schaffer MD on 11/02/17 Visit Date: 10/20/17 had episode of vb today brown pink discharge. us shows small subchorionic hemorrhage viable iups x 2 seen Amee Schaffer MD on 10/20/17 Visit Date: 10/19/17 no vb cramping, neds 3 hour gtt Amee Schaffer MD on 10/19/17 Visit Date: 10/07/17 No visit notes to display ACOG First Trimester First Trimester: Desire for , Alcohol, Tobacco Cessation, Illicit/Recreational Drug/Substance Use, Intimate Partner Violence, Barriers to care, Unstable Housing, Communication Barriers, Environmental/Work Hazards, Anticipated Course of Care, Toxoplasmosis Precations, Use of Any medications, Sexual activity, Exercise, Dental Care, Sauna/Hot tub use, Seat Belt use, Childbirth classes/Hospital facilities, , Travel, Indications for US and Screening for Aneuploidy Diagnostics Diagnostics Labs Blood Type O POSITIVE 10/07/17 Antibody Screen NEGATIVE 10/07/17 Hct 34.7 % (37-47) L 02/22/18 Hgb 12.0 g/dl (12.0-15.0) 02/22/18 Rubella IgG Antibody 141.1 IU/mL 10/07/17 RPR NONREACTIVE (NONREACTIVE) 10/07/17 Hep Bs Antigen Negative (Negative) 10/07/17 Chlam trachomat DNA PCR Negative (Negative) 10/07/17 N.gonorrhoeae DNA (PCR) Negative (Negative) 10/07/17 Glucose 1 Hr 50 gm 122 mg/dL (70-140) 02/22/18 Details: HIV: Urine Culture: Sequential Screen: NIPT Screen: Results [id number] Office Urine Glucose Negative Last Edit by Aracelis Leung on 03/22/18 16:26 Office Urine Protein Negative Last Edit by Aracelis Leung on 03/22/18 16:26 Assessment AND Plan Problems 1. BMI greater than 40 1st trimester glucola, weekly nsts and q4 week growth us after 32 weeks 2. Abnormal glucose R73.09 nl 3 hour gtt 3. Supervision of high risk in third trimester O09.93 PRR LITA 05/24/18 Andreina and Stefania boyfriend Alban 4. Dichorionic diamniotic twin in third trimester O30.043 growth scans q 4 weeks after 26 weeks Plan ACOG trimester education reviewed and updated. see problem list details for updated plan management information and see below for orders placed at this visit. [place] appropriate handout given. Orders Orders: Coding Level of Care Code OB Routine Diagnoses BMI greater than 40 Abnormal glucose R73.09 Supervision of high risk in third trimester O09.93 Trimester: third trimester Dichorionic diamniotic twin in third trimester O30.043 Trimester: third trimester 03/22/18 1702 <Electronically signed by Amee Schaffer MD> Date mAee Schaffer MD Cosigner Signature: Date (if applicable) CC: MANAGER DISCOVERY OFFICE VISIT Observed: 03/08/2018 Status: F Source: [place] REPORT 4:59 PM [facility] REPOSITORY [facility] [address] [place] [address] OFFICE VISIT Date of Service: 03/08/18 MR#: [id number] Acct: [id number] Name: LOULOU YOU Rep #: [id number] : 1995 Provider: Amee Schaffer MD Age/Sex: 22/F [place] [facility] [facility] [place]: Signed Intake Vital Signs03/08/18 Height 5 ft 3 in 03/08/18 Weight: 250 lb 03/08/18 Body Mass Index (BMI) 44.2 03/08/18 Blood Pressure 120/82 H Intake Visit Reasons: 29 WEEK OB Chief Complaint: est ob [employer] Chief Required: No Is patient in pain?: No Allergies Penicillins [PCN] Allergy (Verified 03/08/18 16:36) Rash Medications vitamin,calcium,yizgyhyz-wcnz-ymxsf acid tablet 1 tab PO QDAY 10/07/17 [History Confirmed 03/08/18] metoclopramide 10 mg tablet 10 mg PO TID PRN #90 tab 10/26/17 [Rx Confirmed 03/08/18] sertraline 50 mg tablet 50 mg PO DAILY #30 tab 01/20/18 [Rx Confirmed 03/08/18] Last Menstral Period: 08/17/17 Zika: Zika virus screening: Negative : No PFSH PFSH Medical History Anxiety and depression (Acute) Family History Grandfather Cancer lung throat- smoker Father Diabetes Social History Smoking Status: Never smoker alcohol intake: never substance use type: does not use caffeine: No what type of physical activity do you participate in: walking frequency: 1-2 times per week seatbelt use: always do you feel safe at home: Yes additional social history: Boyfriend 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 OB Visit LITA Calculator Estimated Delivery Date 05/24/18 Based on LMP (certain) 08/17/17 Current WG 29w 0d Number 2 Expected Delivery Route/Plan Specific Issue/Plans flu vaccine: given tdap vaccine: given rhogam: na LARC form signed: [] labor support person: [] pain management: [] cut cord/dad catch: [] : [] PP control planned: [] special requests: [] Initial Weight: 249 lb Date Weight BP Urine PrFHR FuHt Pres MoCTX DilationFetal StVisit NoProviderComments E ot v te [place] G Effac lucose ed Visit Notes Visit Date: 03/08/18 no vb cramping. Amee Schaffer MD on 03/08/18 Visit Date: 02/22/18 no vb cramping lof us scheduled Amee Schaffer MD on 02/22/18 Visit Date: 01/27/18 co some spotting this morning while wiping- nothing since, nothing on exam and cervix closed. reassurance given Amee Schaffer MD on 01/27/18 Visit Date: 01/25/18 no vb lof cramping Amee Schaffer MD on 01/25/18 Visit Date: 12/29/17 no vb lof cramping, us scheduled Amee Schaffer MD on 12/30/17 Visit Date: 11/30/17 no vb cramping doing well, schedule anatomy us with [facility] Amee Schaffer MD on 11/30/17 Visit Date: 11/02/17 no vb cramping nausea improved Amee Schaffer MD on 11/02/17 Visit Date: 10/20/17 had episode of vb today brown pink discharge. us shows small subchorionic hemorrhage viable iups x 2 seen Amee Schaffer MD on 10/20/17 Visit Date: 10/19/17 no vb cramping, neds 3 hour gtt Amee Schaffer MD on 10/19/17 Visit Date: 10/07/17 No visit notes to display ACOG First Trimester First Trimester: Desire for , Alcohol, Tobacco Cessation, Illicit/Recreational Drug/Substance Use, Intimate Partner Violence, Barriers to care, Unstable Housing, Communication Barriers, Environmental/Work Hazards, Anticipated Course of Care, Toxoplasmosis Precations, Use of Any medications, Sexual activity, Exercise, Dental Care, Sauna/Hot tub use, Seat Belt use, Childbirth classes/Hospital facilities, , Travel, Indications for US and Screening for Aneuploidy Diagnostics Diagnostics Labs Blood Type O POSITIVE 10/07/17 Antibody Screen NEGATIVE 10/07/17 Hct 34.7 % (37-47) L 02/22/18 Hgb 12.0 g/dl (12.0-15.0) 02/22/18 Rubella IgG Antibody 141.1 IU/mL 10/07/17 RPR NONREACTIVE (NONREACTIVE) 10/07/17 Hep Bs Antigen Negative (Negative) 10/07/17 Chlam trachomat DNA PCR Negative (Negative) 10/07/17 N.gonorrhoeae DNA (PCR) Negative (Negative) 10/07/17 Glucose 1 Hr 50 gm 122 mg/dL (70-140) 02/22/18 Details: HIV: Urine Culture: Sequential Screen: NIPT Screen: Results [id number] Office Urine Glucose Negative Last Edit by Edilia Briggs on 03/08/18 16:41 Office Urine Protein Negative Last Edit by Edilia Briggs on 03/08/18 16:41 Assessment AND Plan Problems 1. BMI greater than 40 1st trimester glucola, weekly nsts and q4 week growth us after 32 weeks 2. Abnormal glucose R73.09 nl 3 hour gtt 3. Supervision of high risk in second trimester O09.92 PRR LITA 05/24/18 boyfrienifeanyi [place] 4. Dichorionic diamniotic twin in second trimester O30.042 growth scans q 4 weeks after 26 weeks Plan movement and labor precautions reviewed. ACOG trimester education reviewed and updated. see problem list details for updated plan management information and see below for orders placed at this visit. [place] appropriate handout given. Orders Orders: Coding Level of Care Code OB Routine Diagnoses BMI greater than 40 Abnormal glucose R73.09 Supervision of high risk in second trimester O09.92 Trimester: second trimester Dichorionic diamniotic twin in second trimester O30.042 Trimester: second trimester 03/08/18 1659 <Electronically signed by Amee Schaffer MD> Date Amee Schaffer MD Cosigner Signature: Date (if applicable) CC: CBC W/DIFF, AUTOMATED Collected: 02/22/2018 Status: F Source: [place] 5:01 PM [facility] REPOSITORY TYPE CODE TESTS RESULT OUT OF RANGE REFERENCE UNITS LAB L100.1000 4.4-11.0 K/mm3 High WBC 12.2 LAB L100.1200 4.2-5.4 M/mm3 Low RBC 3.64 LAB L100.1300 12.0-15.0 g/dl Normal HGB 12.0 LAB L100.1400 37-47 % Low HCT 34.7 LAB L100.1500 81-99 fL Normal MCV 95.3 LAB L100.1600 27.0-32.0 pg High MCH 33.0 LAB L100.1700 32-36 g/gl Normal MCHC 34.6 LAB L100.1810 11.6-14.6 % Normal RDW CV 12.7 LAB L100.1820 35.1-43.9 fl Normal RDW SD 42.3 LAB L100.1900 150-450 K/mm3 Normal PLT 186 LAB L100.2000 6.2-12.0 fl Normal MPV 11.7 LAB L100.2100 47-70 % High NEUT% 75.6 LAB L100.2200 19-41 % Low LY% 15.6 LAB L100.2300 0-10 % Normal MONO% 6.4 LAB L100.2400 0-5 % Normal EO% 0.7 LAB L100.2500 0-1 % Normal BASO% 0.2 LAB L100.2550 0.0-0.9 % High IM GRAN % 1.500 Result Comment: IG% - Immature Granulocytes (promyelocytes, myelocytes and metamyelocytes) > 1% indicates that a LEFT SHIFT is Present. LAB L100.2620 2.0-7.7 X10 3/uL High Absolute Neut 9.2 LAB L100.2720 0.83-4.51 X10 3/ul Normal Absolute Lymph 1.90 Performed By: #### L100.0100 #### [facility] [address] [place], [address] GLUCOSE CHALLENGE GEST Collected: 02/22/2018 Status: F Source: [place] 1H 50G 5:01 PM [facility] REPOSITORY TYPE CODE TESTS RESULT OUT OF RANGE REFERENCE UNITS LAB L501.0250 70-140 mg/dL Normal GLU GEST 122 50g 1H Performed By: #### L501.0250 #### [facility] [address] [place], [address] MANAGER DISCOVERY OFFICE VISIT Observed: 02/22/2018 Status: F Source: [place] REPORT 4:32 PM [facility] REPOSITORY [facility] [place] [facility] [address] [place], [place] [address] OFFICE VISIT Date of Service: 02/22/18 MR#: [id number] Acct: [id number] Name: LOULOU YOU Rep #: [id number] : 1995 Provider: Amee Schaffer MD Age/Sex: 22/F [place] [facility] [place] Status: Signed Intake Vital Signs02/22/18 Height 5 ft 3 in 02/22/18 Weight: 247 lb 02/22/18 Body Mass Index (BMI) 43.7 02/22/18 Blood Pressure 112/80 Intake Visit Reasons: ob routine 27 weeks gct Chief Complaint: est ob [employer] Chief Required: No Is patient in pain?: No Allergies Penicillins [PCN] Allergy (Verified 02/22/18 16:00) Rash Medications vitamin,calcium,abhnxmfw-nygm-hzrgl acid tablet 1 tab PO QDAY 10/07/17 [History Confirmed 02/22/18] metoclopramide 10 mg tablet 10 mg PO TID PRN #90 tab 10/26/17 [Rx Confirmed 02/22/18] sertraline 50 mg tablet 50 mg PO DAILY #30 tab 01/20/18 [Rx Confirmed 02/22/18] Last Menstral Period: 08/17/17 Zika: Zika virus screening: Negative : No PFSH PFSH Medical History Anxiety and depression (Acute) Family History Grandfather Cancer lung throat- smoker Father Diabetes Social History Smoking Status: Never smoker alcohol intake: never substance use type: does not use caffeine: No what type of physical activity do you participate in: walking frequency: 1-2 times per week seatbelt use: always do you feel safe at home: Yes additional social history: Boyfriend 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 OB Visit LITA Calculator Estimated Delivery Date 05/24/18 Based on LMP (certain) 08/17/17 Current WG 27w 0d Number 2 Expected Delivery Route/Plan Specific Issue/Plans flu vaccine: given tdap vaccine: given rhogam: na LARC form signed: [] labor support person: [] pain management: [] cut cord/dad catch: [] : [] PP control planned: [] special requests: [] Initial Weight: 249 lb Date Weight BP Urine PrFHR FuHt Pres MoCTX DilationFetal StVisit NoProviderComments E ot v te [place] G Effac lucose ed Visit Notes Visit Date: 02/22/18 no vb cramping lof us scheduled Amee Schaffer MD on 02/22/18 Visit Date: 01/27/18 co some spotting this morning while wiping- nothing since, nothing on exam and cervix closed. reassurance given Amee Schaffer MD on 01/27/18 Visit Date: 01/25/18 no vb lof cramping Amee Schaffer MD on 01/25/18 Visit Date: 12/29/17 no vb lof cramping, us scheduled Amee Schaffer MD on 12/30/17 Visit Date: 11/30/17 no vb cramping doing well, schedule anatomy us with [facility] Amee Schaffer MD on 11/30/17 Visit Date: 11/02/17 no vb cramping nausea improved Amee Schaffer MD on 11/02/17 Visit Date: 10/20/17 had episode of vb today brown pink discharge. us shows small subchorionic hemorrhage viable iups x 2 seen Amee Schaffer MD on 10/20/17 Visit Date: 10/19/17 no vb cramping, neds 3 hour gtt Amee Schaffer MD on 10/19/17 Visit Date: 10/07/17 No visit notes to display ACOG First Trimester First Trimester: Desire for , Alcohol, Tobacco Cessation, Illicit/Recreational Drug/Substance Use, Intimate Partner Violence, Barriers to care, Unstable Housing, Communication Barriers, Environmental/Work Hazards, Anticipated Course of Care, Toxoplasmosis Precations, Use of Any medications, Sexual activity, Exercise, Dental Care, Sauna/Hot tub use, Seat Belt use, Childbirth classes/Hospital facilities, , Travel, Indications for US and Screening for Aneuploidy Diagnostics Diagnostics Labs Blood Type O POSITIVE 10/07/17 Antibody Screen NEGATIVE 10/07/17 Hct 40.1 % (37-47) 10/07/17 Hgb 13.8 g/dl (12.0-15.0) 10/07/17 Rubella IgG Antibody 141.1 IU/mL 10/07/17 RPR NONREACTIVE (NONREACTIVE) 10/07/17 Hep Bs Antigen Negative (Negative) 10/07/17 Chlam trachomat DNA PCR Negative (Negative) 10/07/17 N.gonorrhoeae DNA (PCR) Negative (Negative) 10/07/17 Glucose 1 Hr 50 gm 137 mg/dL (70-140) 10/07/17 Details: HIV: Urine Culture: Sequential Screen: NIPT Screen: Assessment AND Plan Problems 1. BMI greater than 40 1st trimester glucola, weekly nsts and q4 week growth us after 32 weeks 2. Abnormal glucose R73.09 nl 3 hour gtt 3. Supervision of high risk in second trimester O09.92 PRR LITA 05/24/18 boyfrienifeanyi [place] 4. Dichorionic diamniotic twin in second trimester O30.042 growth scans q 4 weeks after 26 weeks Plan ACOG trimester education reviewed and updated. see problem list details for updated plan management information and see below for orders placed at this visit. [place] appropriate handout given. Orders Orders: Medications New: Coding Level of Care Code OB Routine Diagnoses BMI greater than 40 Abnormal glucose R73.09 Supervision of high risk in second trimester O09.92 Trimester: second trimester Dichorionic diamniotic twin in second trimester O30.042 Trimester: second trimester 02/22/18 1632 <Electronically signed by Amee Schaffer MD> Date Amee Schaffer MD Cosigner Signature: Date (if applicable) CC: MANAGER DISCOVERY OFFICE VISIT Observed: 01/27/2018 Status: F Source: [place] REPORT 1:21 PM [facility] REPOSITORY [facility] [place] [address] [place] [address] OFFICE VISIT Date of Service: 01/27/18 MR#: [id number] Acct: [id number] Name: LOULOU YOU Rep #: [id number] : 1995 Provider: Amee Schaffer MD Age/Sex: 22/F [place] [facility] [place] Status: Signed Intake Vital Signs01/27/18 Height 5 ft 3 in 01/27/18 Weight: 246 lb 8 oz 01/27/18 Body Mass Index (BMI) 43.7 01/27/18 Blood Pressure 132/78 H Intake Visit Reasons: OB/ VB Chief Complaint: est ob,VB [employer] Chief Required: No Is patient in pain?: Yes Allergies Penicillins [PCN] Allergy (Verified 01/27/18 12:49) Rash Medications vitamin,calcium,mwowzetx-mjgq-zvomt acid tablet 1 tab PO QDAY 10/07/17 [History Confirmed 01/27/18] metoclopramide 10 mg tablet 10 mg PO TID PRN #90 tab 10/26/17 [Rx Confirmed 01/27/18] sertraline 50 mg tablet 50 mg PO DAILY #30 tab 01/20/18 [Rx Confirmed 01/27/18] Last Menstral Period: 08/17/17 Zika: Zika virus screening: Negative : No PFSH PFSH Medical History Anxiety and depression (Acute) Family History Grandfather Cancer lung throat- smoker Father Diabetes Social History Smoking Status: Never smoker alcohol intake: never substance use type: does not use caffeine: No what type of physical activity do you participate in: walking frequency: 1-2 times per week seatbelt use: always do you feel safe at home: Yes additional social history: Boyfriend 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 OB Visit LITA Calculator Estimated Delivery Date 05/24/18 Based on LMP (certain) 08/17/17 Current WG 23w 2d Number 2 Expected Delivery Route/Plan Specific Issue/Plans flu vaccine: given minichart given: [] tdap vaccine: [] rhogam: [] LARC form signed: [] labor support person: [] pain management: [] cut cord/dad catch: [] : [] PP control planned: [] special requests: [] Initial Weight: 249 lb Date Weight BP Urine PrFHR FuHt Pres MoCTX DilationFetal StVisit NoProviderComments E ot v te [place] G Effac lucose ed Visit Notes Visit Date: 01/27/18 co some spotting this morning while wiping- nothing since, nothing on exam and cervix closed. reassurance given Amee Schaffer MD on 01/27/18 Visit Date: 01/25/18 no vb lof cramping Amee Schaffer MD on 01/25/18 Visit Date: 12/29/17 no vb lof cramping, us scheduled Amee Schaffer MD on 12/30/17 Visit Date: 11/30/17 no vb cramping doing well, schedule anatomy us with [facility] Amee Schaffer MD on 11/30/17 Visit Date: 11/02/17 no vb cramping nausea improved Amee Schaffer MD on 11/02/17 Visit Date: 10/20/17 had episode of vb today brown pink discharge. us shows small subchorionic hemorrhage viable iups x 2 seen Amee Schaffer MD on 10/20/17 Visit Date: 10/19/17 no vb cramping, neds 3 hour gtt Amee Schaffer MD on 10/19/17 Visit Date: 10/07/17 No visit notes to display ACOG First Trimester First Trimester: Desire for , Alcohol, Tobacco Cessation, Illicit/Recreational Drug/Substance Use, Intimate Partner Violence, Barriers to care, Unstable Housing, Communication Barriers, Environmental/Work Hazards, Anticipated Course of Care, Toxoplasmosis Precations, Use of Any medications, Sexual activity, Exercise, Dental Care, Sauna/Hot tub use, Seat Belt use, Childbirth classes/Hospital facilities, , Travel, Indications for US and Screening for Aneuploidy Diagnostics Diagnostics Labs Blood Type O POSITIVE 10/07/17 Antibody Screen NEGATIVE 10/07/17 Hct 40.1 % (37-47) 10/07/17 Hgb 13.8 g/dl (12.0-15.0) 10/07/17 Rubella IgG Antibody 141.1 IU/mL 10/07/17 RPR NONREACTIVE (NONREACTIVE) 10/07/17 Hep Bs Antigen Negative (Negative) 10/07/17 Chlam trachomat DNA PCR Negative (Negative) 10/07/17 N.gonorrhoeae DNA (PCR) Negative (Negative) 10/07/17 Glucose 1 Hr 50 gm 137 mg/dL (70-140) 10/07/17 Details: HIV: Urine Culture: Sequential Screen: NIPT Screen: Results [email or web address] Office Urine Color YELLOW Last Edit by Edilia Briggs on 01/27/18 12:53 Office Urine Clarity Clear Last Edit by Edilia Briggs on 01/27/18 12:53 Assessment AND Plan Problems 1. Dichorionic diamniotic twin in second trimester O30.042 growth scans q 4 weeks after 26 weeks 2. Abnormal glucose R73.09 nl 3 hour gtt 3. Supervision of high risk in second trimester O09.92 PRR LITA 05/24/18 boyfrienifeanyi [place] 4. BMI greater than 40 1st trimester glucola, weekly nsts and q4 week growth us after 32 weeks Plan ACOG trimester education reviewed and updated. see problem list details for updated plan management information and see below for orders placed at this visit. [place] appropriate handout given. Orders Orders: Coding Level of Care Code OB Routine Diagnoses Dichorionic diamniotic twin in second trimester O30.042 Trimester: second trimester Abnormal glucose R73.09 Supervision of high risk in second trimester O09.92 Trimester: second trimester BMI greater than 40 01/27/18 1321 <Electronically signed by Amee Schaffer MD> Date Amee Schaffer MD Cosign Signature: Date (if applicable) CC: MANAGER DISCOVERY OFFICE VISIT Observed: 01/25/2018 Status: F Source: [place] RE[facility] 4:20 PM [facility] [address] [place] [address] OFFICE VISIT Date of Service: 01/25/18 MR#: [id number] Acct: [id number] Name: LOULOU YOU Rep #: [id number] : 1995 Provider: Amee Schaffer MD Age/Sex: 22/F [place] [facility] [place]: Signed Intake Vital Signs01/25/18 Height 5 ft 3 in 01/25/18 Weight: 245 lb 8 oz 01/25/18 Body Mass Index (BMI) 43.4 01/25/18 Blood Pressure 120/70 Intake Visit Reasons: ob routine 23 weeks Chief Complaint: est ob [employer] Chief Required: No Is patient in pain?: No Allergies Penicillins [PCN] Allergy (Verified 01/25/18 15:55) Rash Medications vitamin,calcium,fsklhxog-xcbo-mfwzh acid tablet 1 tab PO QDAY 10/07/17 [History Confirmed 01/25/18] metoclopramide 10 mg tablet 10 mg PO TID PRN #90 tab 10/26/17 [Rx Confirmed 01/25/18] sertraline 50 mg tablet 50 mg PO DAILY #30 tab 01/20/18 [Rx Confirmed 01/25/18] Last Menstral Period: 08/17/17 Zika: Zika virus screening: Negative : No PFSH PFSH Medical History Anxiety and depression (Acute) Family History Grandfather Cancer lung throat- smoker Father Diabetes Social History Smoking Status: Never smoker alcohol intake: never substance use type: does not use caffeine: No what type of physical activity do you participate in: walking frequency: 1-2 times per week seatbelt use: always do you feel safe at home: Yes additional social history: Boyfriend 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 OB Visit LITA Calculator Estimated Delivery Date 05/24/18 Based on LMP (certain) 08/17/17 Current WG 23w 0d Number 2 Expected Delivery Route/Plan Specific Issue/Plans flu vaccine: given minichart given: [] tdap vaccine: [] rhogam: [] LARC form signed: [] labor support person: [] pain management: [] cut cord/dad catch: [] : [] PP control planned: [] special requests: [] Initial Weight: 249 lb Date Weight BP Urine PrFHR FuHt Pres MoCTX DilationFetal StVisit NoProviderComments E ot v te [place] G Effac lucose ed Visit Notes Visit Date: 01/25/18 no vb lof cramping Amee Schaffer MD on 01/25/18 Visit Date: 12/29/17 no vb lof cramping, us scheduled Amee Schaffer MD on 12/30/17 Visit Date: 11/30/17 no vb cramping doing well, schedule anatomy us with [facility] Amee Schaffer MD on 11/30/17 Visit Date: 11/02/17 no vb cramping nausea improved Amee Schaffer MD on 11/02/17 Visit Date: 10/20/17 had episode of vb today brown pink discharge. us shows small subchorionic hemorrhage viable iups x 2 seen Amee Schaffer MD on 10/20/17 Visit Date: 10/19/17 no vb cramping, neds 3 hour gtt Amee Schaffer MD on 10/19/17 Visit Date: 10/07/17 No visit notes to display ACOG First Trimester First Trimester: Desire for , Alcohol, Tobacco Cessation, Illicit/Recreational Drug/Substance Use, Intimate Partner Violence, Barriers to care, Unstable Housing, Communication Barriers, Environmental/Work Hazards, Anticipated Course of Care, Toxoplasmosis Precations, Use of Any medications, Sexual activity, Exercise, Dental Care, Sauna/Hot tub use, Seat Belt use, Childbirth classes/Hospital facilities, , Travel, Indications for US and Screening for Aneuploidy Diagnostics Diagnostics Labs Blood Type O POSITIVE 10/07/17 Antibody Screen NEGATIVE 10/07/17 Hct 40.1 % (37-47) 10/07/17 Hgb 13.8 g/dl (12.0-15.0) 10/07/17 Rubella IgG Antibody 141.1 IU/mL 10/07/17 RPR NONREACTIVE (NONREACTIVE) 10/07/17 Hep Bs Antigen Negative (Negative) 10/07/17 Chlam trachomat DNA PCR Negative (Negative) 10/07/17 N.gonorrhoeae DNA (PCR) Negative (Negative) 10/07/17 Glucose 1 Hr 50 gm 137 mg/dL (70-140) 10/07/17 Details: HIV: Urine Culture: Sequential Screen: NIPT Screen: Results [id number] Office Urine Glucose Negative Last Edit by Edilia Briggs on 01/25/18 16:12 Office Urine Protein Negative Last Edit by Edilia Briggs on 01/25/18 16:12 Assessment AND Plan Problems 1. BMI greater than 40 1st trimester glucola, weekly nsts and q4 week growth us after 32 weeks 2. Abnormal glucose R73.09 nl 3 hour gtt 3. Supervision of high risk in second trimester O09.92 PRR LITA 05/24/18 boyfrienifeanyi [place] 4. Dichorionic diamniotic twin in second trimester O30.042 growth scans q 4 weeks after 26 weeks 5. 23 weeks gestation of Z3A.23 Plan ACOG trimester education reviewed and updated. see problem list details for updated plan management information and see below for orders placed at this visit. [place] appropriate handout given. Orders Orders: Coding Level of Care Code OB Routine Diagnoses BMI greater than 40 Abnormal glucose R73.09 Supervision of high risk in second trimester O09.92 Trimester: second trimester Dichorionic diamniotic twin in second trimester O30.042 Trimester: second trimester 23 weeks gestation of Z3A.23 Weeks of gestation: 23 weeks 01/25/18 1620 <Electronically signed by Amee Schaffer MD> Date Amee Schaffer MD Cosigner Signature: Date (if applicable) CC: PROGRESS NOTE Observed: 01/11/2018 Status: COMPLETED Source: [place] 9:30 AM [facility] REPOSITORY [facility] MATERNAL- MEDICINE CONSULT Referring/Requesting Provider: Amee Schaffer MD PCP: [facility], MD Gretta CHIEF COMPLAINT: Dichorionic twins HISTORY OF PRESENT ILLNESS: Loulou is a 22 y.o. female at 21w0d referred for a Maternal- Medicine consultation regarding her history of a dichorionic diamniotic twin gestation. She denies any obstetric complaints today and reports appropriate movement. Loulou had an elevated early 1 hour GCT with subsequent normal 3 hour GTT. She recently started citalopram for her history of anxiety. OB HISTORY: OB History Para Term AB Living 1 0 0 0 0 0 SAB TAB Ectopic Multiple Live Births 0 0 0 0 0 # Outcome Date GA Lbr Eber/2nd Weight Sex Delivery Anes PTL Lv 1 Current PAST MEDICAL HISTORY: Past Medical History: Diagnosis Date Anxiety Breast disorder Right side pt has lumps Depression Obesity Seasonal allergies PAST SURGICAL HISTORY: History reviewed. No pertinent surgical history. PERTINENT FAMILY HISTORY: Family History Problem Relation Age of Onset Diabetes Mellitus II Father Heart Disease Father Cancer Sister Breast Cancer Paternal Grandmother Kidney Thyroid Disease Paternal Grandmother Emphysema Paternal Grandfather MEDS: Current Outpatient Prescriptions Medication Sig Vit w/Ml-Tnvemerbz-ED (PNV PO) Take 1 Tab by mouth daily citalopram (CELEXA) 20 MG tablet Take 20 mg by mouth daily ALLERGY: Allergies Allergen Reactions Pcn [Penicillins] Rash REVIEW OF SYSTEMS: As mentioned above and in Subjective, all other Review of Systems reviewed and negative. PHYSICAL EXAM: VITAL SIGNS: BP 112/78 Ht 160 cm Wt (!) 110.2 kg (243 lb) LMP 08/17/2017 BMI 43.05 kg/m IMAGING: Dichorionic diamniotic twin gestation with concordant growth. Amniotic fluid volume is normal in both sacs. No gross anatomic defects were detected on today's scan, although resolution of some anatomy as detailed above was suboptimal for each twin. Cervical length appears normal without evidence of funneling. LABS: No results found for any previous visit. IMPRESSION: Loulou is a 22 y.o. female at 21w0d with Patient Active Problem List Diagnosis Obesity affecting , antepartum Dichorionic diamniotic twin gestation Anxiety disorder affecting , antepartum Abnormal maternal glucose tolerance, antepartum RECOMMENDATIONS: Dichorionic diamniotic twin gestation: We reviewed the etiology of dichorionic diamniotic twins and the increased risk of complications including labor and delivery, preeclampsia, and gestational diabetes. The IOM gestational weight gain recommendation for twin is 25-42 lbs for obese women. In the absence of signs/symptoms of labor and hypertension, Loulou should continue her routine work and physical activity regimen given the potential harmful nature of bedrest and significant activity restriction. I recommended starting a low dose aspirin to reduce the risk of preeclampsia. In addition, a 3 hour GTT should be repeated at 26-28 weeks gestation. Serial ultrasound for growth assessment is recommended every four weeks starting at viability. Although there is an increased risk of stillbirth in twin gestations, the benefit of routine testing in dichorionic twins remains unclear and should be considered as clinically indicated. Delivery is recommended at 38 0/7- 38 6/7 weeks. We discussed the mode of delivery with various presentations in twin pregnancies and the potential complications of a vaginal delivery in a vertex/nonvertex presentation as well as the complications of delivery. The presentation of the second twin has been reported to change in 10-20% of cases after delivery of the presenting twin. I would recommend a trial of labor of twins in a vertex/vertex presentation as well as an attempt at vaginal delivery in vertex/nonvertex presenting twins either through breech extraction or cephalic version depending on the provider s experience level and obstetric environment. The total patient time of the visit was 30 minutes, of which greater than 50% of the time was spent counseling and coordinating care. Sharan Jeffrey DO MANAGER DISCOVERY OFFICE VISIT Observed: 12/30/2017 Status: F Source: [place] REPORT 10:01 PM [facility] [address] [place] [address]. [address] [place] [address] OFFICE VISIT Date of Service: 12/29/17 MR#: [id number] Acct: [id number] Name: LOULOU YOU Rep #: [id number] : 1995 Provider: Amee Schaffer MD Age/Sex: 22/F [place] [facility] [place]: Signed Intake Vital Signs12/29/17 Height 5 ft 3 in 12/29/17 Weight: 245 lb 4 oz 12/29/17 Body Mass Index (BMI) 43.4 Intake Visit Reasons: OB Routine 19 weeks Chief Complaint: est ob [employer] Chief Required: No Accompanied by: Significant Other Is patient in pain?: No Allergies Penicillins [PCN] Allergy (Verified 12/28/17 16:18) Rash Medications vitamin,calcium,vquzhvfq-oyby-gqdzi acid tablet 1 tab PO QDAY 10/07/17 [History Confirmed 12/28/17] metoclopramide 10 mg tablet 10 mg PO TID PRN #90 tab 10/26/17 [Rx Confirmed 12/28/17] Last Menstral Period: 08/17/17 Zika: Zika virus screening: Negative : No PFSH PFSH Medical History Anxiety and depression (Acute) Family History Grandfather Cancer lung throat- smoker Father Diabetes Social History Smoking Status: Never smoker alcohol intake: never substance use type: does not use caffeine: No what type of physical activity do you participate in: walking frequency: 1-2 times per week seatbelt use: always do you feel safe at home: Yes additional social history: Boyfriend 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 OB Visit LITA Calculator Estimated Delivery Date 05/24/18 Based on LMP (certain) 08/17/17 Current WG 19w 2d Number 2 Expected Delivery Route/Plan Specific Issue/Plans flu vaccine: [] minichart given: [] tdap vaccine: [] rhogam: [] LARC form signed: [] labor support person: [] pain management: [] cut cord/dad catch: [] : [] PP control planned: [] special requests: [] Initial Weight: 249 lb Date Weight BP Urine PrFHR FuHt Pres MoCTX DilationFetal StVisit NoProviderComments E ot v te [place] G Effac lucose ed Visit Notes Visit Date: 12/29/17 no vb lof cramping, us scheduled Amee Schaffer MD on 12/30/17 Visit Date: 11/30/17 no vb cramping doing well, schedule anatomy us with [facility] Amee Schaffer MD on 11/30/17 Visit Date: 11/02/17 no vb cramping nausea improved Amee Schaffer MD on 11/02/17 Visit Date: 10/20/17 had episode of vb today brown pink discharge. us shows small subchorionic hemorrhage viable iups x 2 seen Amee Schaffer MD on 10/20/17 Visit Date: 10/19/17 no vb cramping, neds 3 hour gtt Amee Schaffer MD on 10/19/17 Visit Date: 10/07/17 No visit notes to display ACOG First Trimester First Trimester: Desire for , Alcohol, Tobacco Cessation, Illicit/Recreational Drug/Substance Use, Intimate Partner Violence, Barriers to care, Unstable Housing, Communication Barriers, Environmental/Work Hazards, Anticipated Course of Care, Toxoplasmosis Precations, Use of Any medications, Sexual activity, Exercise, Dental Care, Sauna/Hot tub use, Seat Belt use, Childbirth classes/Hospital facilities, , Travel, Indications for US and Screening for Aneuploidy Diagnostics Diagnostics Labs Blood Type O POSITIVE 10/07/17 Antibody Screen NEGATIVE 10/07/17 Hct 40.1 % (37-47) 10/07/17 Hgb 13.8 g/dl (12.0-15.0) 10/07/17 Rubella IgG Antibody 141.1 IU/mL 10/07/17 RPR NONREACTIVE (NONREACTIVE) 10/07/17 Hep Bs Antigen Negative (Negative) 10/07/17 Chlam trachomat DNA PCR Negative (Negative) 10/07/17 N.gonorrhoeae DNA (PCR) Negative (Negative) 10/07/17 Glucose 1 Hr 50 gm 137 mg/dL (70-140) 10/07/17 Details: HIV: Urine Culture: Sequential Screen: NIPT Screen: Assessment AND Plan Problems 1. Dichorionic diamniotic twin in second trimester O30.042 growth scans q 4 weeks after 26 weeks 2. Supervision of high risk in second trimester O09.92 PRR LITA 05/24/18 boyfriend Alban 3. BMI greater than 40 1st trimester glucola, weekly nsts and q4 week growth us after 32 weeks 4. Abnormal glucose R73.09 nl 3 hour gtt Plan ACOG trimester education reviewed and updated. see problem list details for updated plan management information and see below for orders placed at this visit. [place] appropriate handout given. Orders Orders: Coding Level of Care Code OB Routine Diagnoses Dichorionic diamniotic twin in second trimester O30.042 Trimester: second trimester Supervision of high risk in second trimester O09.92 Trimester: second trimester BMI greater than 40 Abnormal glucose R73.09 12/30/17 2201 <Electronically signed by Amee Schaffer MD> Date Amee Schaffer MD Cosigner Signature: Date (if applicable) CC: MANAGER DISCOVERY OFFICE VISIT Observed: 11/30/2017 Status: F Source: [place] REPORT 4:35 PM [facility] REPOSITORY [facility] [address] [place] [address] OFFICE VISIT Date of Service: 11/30/17 MR#: [id number] Acct: [id number] Name: LOULOU YOU Rep #: [id number] : 1995 Provider: Amee Schaffer MD Age/Sex: 22/F [place] [facility] [place]: Signed Intake Vital Signs11/30/17 Height 5 ft 3 in 11/30/17 Weight: 240 lb 11/30/17 Body Mass Index (BMI) 42.5 11/30/17 Blood Pressure 118/76 Intake Visit Reasons: ob routine 15 weeks Chief Complaint: est ob [employer] Chief Required: No Is patient in pain?: No Allergies Penicillins [PCN] Allergy (Verified 11/30/17 16:05) Rash Medications vitamin,calcium,tcujqxoc-wmga-qavwk acid tablet 1 tab PO QDAY 10/07/17 [History Confirmed 11/02/17] metoclopramide 10 mg tablet 10 mg PO TID PRN #90 tab 10/26/17 [Rx Confirmed 11/30/17] Last Menstral Period: 08/17/17 Zika: Zika virus screening: Negative : No PFSH PFSH Medical History Anxiety and depression (Acute) Family History Grandfather Cancer lung throat- smoker Father Diabetes Social History Smoking Status: Never smoker alcohol intake: never substance use type: does not use caffeine: No what type of physical activity do you participate in: walking frequency: 1-2 times per week seatbelt use: always do you feel safe at home: Yes additional social history: Boyfriend 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 OB Visit LITA Calculator Estimated Delivery Date 05/24/18 Based on LMP (certain) 08/17/17 Current WG 15w 0d Number 2 Expected Delivery Route/Plan Specific Issue/Plans flu vaccine: [] minichart given: [] tdap vaccine: [] rhogam: [] LARC form signed: [] labor support person: [] pain management: [] cut cord/dad catch: [] : [] PP control planned: [] special requests: [] Initial Weight: 249 lb Date Weight BP Urine PrFHR FuHt Pres MoCTX DilationFetal StVisit NoProviderComments E ot v te [place] G Effac lucose ed Visit Notes Visit Date: 11/30/17 no vb cramping doing well, schedule anatomy us with [facility] Amee Schaffer MD on 11/30/17 Visit Date: 11/02/17 no vb cramping nausea improved Amee Schaffer MD on 11/02/17 Visit Date: 10/20/17 had episode of vb today brown pink discharge. us shows small subchorionic hemorrhage viable iups x 2 seen Amee Schaffer MD on 10/20/17 Visit Date: 10/19/17 no vb cramping, neds 3 hour gtt Amee Schaffer MD on 10/19/17 Visit Date: 10/07/17 No visit notes to display ACOG First Trimester First Trimester: Desire for , Alcohol, Tobacco Cessation, Illicit/Recreational Drug/Substance Use, Intimate Partner Violence, Barriers to care, Unstable Housing, Communication Barriers, Environmental/Work Hazards, Anticipated Course of Care, Toxoplasmosis Precations, Use of Any medications, Sexual activity, Exercise, Dental Care, Sauna/Hot tub use, Seat Belt use, Childbirth classes/Hospital facilities, , Travel, Indications for US and Screening for Aneuploidy Diagnostics Diagnostics Labs Blood Type O POSITIVE 10/07/17 Antibody Screen NEGATIVE 10/07/17 Hct 40.1 % (37-47) 10/07/17 Hgb 13.8 g/dl (12.0-15.0) 10/07/17 Rubella IgG Antibody 141.1 IU/mL 10/07/17 RPR NONREACTIVE (NONREACTIVE) 10/07/17 Hep Bs Antigen Negative (Negative) 10/07/17 Chlam trachomat DNA PCR Negative (Negative) 10/07/17 N.gonorrhoeae DNA (PCR) Negative (Negative) 10/07/17 Glucose 1 Hr 50 gm 137 mg/dL (70-140) 10/07/17 Details: HIV: Urine Culture: Sequential Screen: NIPT Screen: Assessment AND Plan Problems 1. Dichorionic diamniotic twin in second trimester O30.042 growth scans q 4 weeks after 26 weeks 2. Abnormal glucose R73.09 nl 3 hour gtt 3. Supervision of high risk in second trimester O09.92 PRR LITA 05/24/18 boyfriend Alban 4. BMI greater than 40 1st trimester glucola, weekly nsts and q4 week growth us after 32 weeks Plan ACOG trimester education reviewed and updated. mfm consult for comanagement. patiet declining genetic/NTD screening at this time but may consider see problem list details for updated plan management information and see below for orders placed at this visit. [place] appropriate handout given. Orders Orders: Coding Level of Care Code OB Routine Diagnoses Dichorionic diamniotic twin in second trimester O30.042 Trimester: second trimester Abnormal glucose R73.09 Supervision of high risk in second trimester O09.92 Trimester: second trimester BMI greater than 40 11/30/17 1635 <Electronically signed by Amee Schaffer MD> Date Amee Schaffer MD Cosigner Signature: Date (if applicable) CC: MANAGER DISCOVERY OFFICE VISIT Observed: 11/02/2017 Status: F Source: [place] [facility] 4:28 PM [facility] [address] [place] [address]. [address] [place] [address] OFFICE VISIT Date of Service: 11/02/17 MR#: [id number] Acct: [id number] Name: LOULOU YOU Rep #: [id number] : 1995 Provider: Amee Schaffer MD Age/Sex: 21/F [place] [facility] [place]: Signed Intake Vital Signs11/02/17 Height 5 ft 3 in 11/02/17 Weight: 243 lb 5 oz 11/02/17 Body Mass Index (BMI) 43.1 11/02/17 Blood Pressure 117/57 Intake Visit Reasons: ob routine 11 weeks 2 days Land [employer] Chief Required: No Accompanied by: Friend Is patient in pain?: No Allergies Penicillins [PCN] Allergy (Verified 11/02/17 15:57) Rash Medications vitamin,calcium,nyvmfjls-ffzc-radlq acid tablet 1 tab PO QDAY 10/07/17 [History Confirmed 11/02/17] metoclopramide 10 mg tablet 10 mg PO TID PRN #90 tab 10/26/17 [Rx Confirmed 11/02/17] Last Menstral Period: 08/17/17 Zika: Zika virus screening: Negative PFSH PFSH Medical History Anxiety and depression (Acute) Family History Grandfather Cancer lung throat- smoker Father Diabetes Social History Smoking Status: Never smoker alcohol intake: never substance use type: does not use caffeine: No what type of physical activity do you participate in: walking frequency: 1-2 times per week seatbelt use: always do you feel safe at home: Yes additional social history: Boyfriend 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 OB Visit LITA Calculator Estimated Delivery Date 05/24/18 Based on LMP (certain) 08/17/17 Current WG 11w 0d Number 2 Expected Delivery Route/Plan Specific Issue/Plans flu vaccine: [] minichart given: [] tdap vaccine: [] rhogam: [] LARC form signed: [] labor support person: [] pain management: [] cut cord/dad catch: [] : [] PP control planned: [] special requests: [] Initial Weight: 249 lb Date Weight BP Urine PrFHR FuHt Pres MoCTX DilationFetal StVisit NoProviderComments E ot v te [place] G Effac lucose ed Visit Notes Visit Date: 11/02/17 no vb cramping nausea improved Amee Schaffer MD on 11/02/17 Visit Date: 10/20/17 had episode of vb today brown pink discharge. us shows small subchorionic hemorrhage viable iups x 2 seen Amee Schaffer MD on 10/20/17 Visit Date: 10/19/17 no vb cramping, neds 3 hour gtt Amee Schaffer MD on 10/19/17 Visit Date: 10/07/17 No visit notes to display ACOG First Trimester First Trimester: Desire for , Alcohol, Tobacco Cessation, Illicit/Recreational Drug/Substance Use, Intimate Partner Violence, Barriers to care, Unstable Housing, Communication Barriers, Environmental/Work Hazards, Anticipated Course of Care, Toxoplasmosis Precations, Use of Any medications, Sexual activity, Exercise, Dental Care, Sauna/Hot tub use, Seat Belt use, Childbirth classes/Hospital facilities, , Travel, Indications for US and Screening for Aneuploidy Diagnostics Diagnostics Labs Blood Type O POSITIVE 10/07/17 Antibody Screen NEGATIVE 10/07/17 Hct 40.1 % (37-47) 10/07/17 Hgb 13.8 g/dl (12.0-15.0) 10/07/17 Rubella IgG Antibody 141.1 IU/mL 10/07/17 RPR NONREACTIVE (NONREACTIVE) 10/07/17 Hep Bs Antigen Negative (Negative) 10/07/17 Chlam trachomat DNA PCR Negative (Negative) 10/07/17 N.gonorrhoeae DNA (PCR) Negative (Negative) 10/07/17 Glucose 1 Hr 50 gm 137 mg/dL (70-140) 10/07/17 Details: HIV: Urine Culture: Sequential Screen: NIPT Screen: Results [id number] Office Urine Glucose Negative Last Edit by Aracelis Leung on 11/02/17 15:54 Office Urine Protein Negative Last Edit by Aracelis Leung on 11/02/17 15:54 Assessment AND Plan Problems 1. Dichorionic diamniotic twin in first trimester O30.041 growth scans q 4 weeks after 26 weeks 2. Abnormal glucose R73.09 nl 3 hour gtt 3. Supervision of high risk in first trimester O09. PRR LITA 05/24/18 boyfrienifeanyi [place]st 4. BMI greater than 40 1st trimester glucola, weekly nsts and q4 week growth us after 32 weeks 5. 11 weeks gestation of Z3A.11 Plan Orders placed: none ACOG trimester education reviewed and updated. see problem list details for updated plan management information. [place] appropriate handout given. Orders Orders: Coding Level of Care Code OB Routine Diagnoses Dichorionic diamniotic twin in first trimester O30.041 Trimester: first trimester Abnormal glucose R73.09 Supervision of high risk in first trimester O.91 Trimester: first trimester BMI greater than 40 11 weeks gestation of Z3A.11 11/02/17 1628 <Electronically signed by Amee Schaffer MD> Date Amee Schaffer MD Cosigner Signature: Date (if applicable) CC: GESTATIONAL GTT 3HR Collected: 10/29/2017 Status: F Source: [place] 100G 7:00 AM [facility] REPOSITORY Order Comment: Is Patient Fasting? Y TYPE CODE TESTS RESULT OUT OF RANGE REFERENCE UNITS LAB L501.0650 <105 mg/dL Normal GLU 88 GTT-FASTING Result Comment: GLUCOSE TOLERANCE TEST FOR Reference Interval GESTATIONAL DIABETES Fasting <105 mg/dL 1 hour <190 mg/dl 2 hour <165 mg/dl 3 hour <145 mg/dl LAB L501.0660 <190 mg/dL Normal GLU GTT- 1HR 112 LAB L501.0670 <165 mg/dL Normal GLU GTT- 2HR 102 LAB L501.0680 <145 L Normal GLU GTT- 3HR 68 Performed By: #### L500.4710 #### [facility] [address] [place], [address] MANAGER DISCOVERY OFFICE VISIT Observed: 10/20/2017 Status: F Source: [place] REPORT 4:55 PM [facility] REPOSITORY [facility] [address] [place] [address] OFFICE VISIT Date of Service: 10/20/17 MR#: [id number] Acct: [id number] Name: LOULOU YOU Rep #: [id number] : 1995 Provider: Amee Schaffer MD Age/Sex: 21/F [place] [facility] [place]: Signed Intake Vital Signs10/20/17 Height 5 ft 3 in 10/20/17 Weight: 244 lb 10/20/17 Body Mass Index (BMI) 43.2 10/20/17 Blood Pressure 116/77 Intake Visit Reasons: OB-bleeding Is patient in pain?: Yes Allergies Penicillins [PCN] Allergy (Verified 10/20/17 16:37) Rash Medications vitamin,calcium,sgbmqaxx-fmyh-fuueg acid tablet 1 tab PO QDAY 10/07/17 [History Confirmed 10/19/17] promethazine 12.5 mg tablet 12.5 mg PO Q6H PRN #60 tab 10/07/17 [Rx Confirmed 10/19/17] Last Menstral Period: 08/17/17 Zika: Zika virus screening: Negative : No PFSH PFSH Medical History Anxiety and depression (Acute) Family History Grandfather Cancer lung throat- smoker Father Diabetes Social History Smoking Status: Never smoker alcohol intake: never substance use type: does not use caffeine: Yes what type of physical activity do you participate in: walking frequency: 1-2 times per week seatbelt use: always do you feel safe at home: Yes additional social history: Boyfriend Alban- 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 OB Visit LITA Calculator Estimated Delivery Date 05/24/18 Based on LMP (certain) 08/17/17 Current WG 9w 1d Number 2 Expected Delivery Route/Plan Specific Issue/Plans flu vaccine: [] minichart given: [] tdap vaccine: [] rhogam: [] LARC form signed: [] labor support person: [] pain management: [] cut cord/dad catch: [] : [] PP control planned: [] special requests: [] Initial Weight: 249 lb Date Weight BP Urine PrFHR FuHt Pres MoCTX DilationFetal StVisit NoProviderComments E ot v te [place] G Effac lucose ed Visit Notes Visit Date: 10/20/17 had episode of vb today brown pink discharge. us shows small subchorionic hemorrhage viable iups x 2 seen Amee Schaffer MD on 10/20/17 Visit Date: 10/19/17 no vb cramping, neds 3 hour gtt Amee Schaffer MD on 10/19/17 Visit Date: 10/07/17 No visit notes to display ACOG First Trimester First Trimester: Desire for , Alcohol, Tobacco Cessation, Illicit/Recreational Drug/Substance Use, Intimate Partner Violence, Barriers to care, Unstable Housing, Communication Barriers, Environmental/Work Hazards, Anticipated Course of Care, Toxoplasmosis Precations, Use of Any medications, Sexual activity, Exercise, Dental Care, Sauna/Hot tub use, Seat Belt use, Childbirth classes/Hospital facilities, , Travel, Indications for US and Screening for Aneuploidy Diagnostics Diagnostics Labs Blood Type O POSITIVE 10/07/17 Antibody Screen NEGATIVE 10/07/17 Hct 40.1 % (37-47) 10/07/17 Hgb 13.8 g/dl (12.0-15.0) 10/07/17 Rubella IgG Antibody 141.1 IU/mL 10/07/17 RPR NONREACTIVE (NONREACTIVE) 10/07/17 Hep Bs Antigen Negative (Negative) 10/07/17 Chlam trachomat DNA PCR Negative (Negative) 10/07/17 N.gonorrhoeae DNA (PCR) Negative (Negative) 10/07/17 Glucose 1 Hr 50 gm 137 mg/dL (70-140) 10/07/17 Details: HIV: Urine Culture: Sequential Screen: NIPT Screen: Results [id number] Office Urine Glucose Negative Last Edit by Laine Sullivan on 10/20/17 16:38 Office Urine Protein Trace Last Edit by Laine Sullivan on 10/20/17 16:38 Assessment AND Plan Problems 1. Vaginal bleeding during O46.90 Plan seen for vb- viable iup x 2 seen Orders Orders: Coding Level of Care Code OB Routine Diagnoses Vaginal bleeding during O46.90 10/20/17 1655 <Electronically signed by Amee Schaffer MD> Date Amee Schaffer MD Cosigner Signature: Date (if applicable) CC: MANAGER DISCOVERY OFFICE VISIT Observed: 10/19/2017 Status: F Source: [place] REPORT 5:19 PM [facility] [address] [place] [address] OFFICE VISIT Date of Service: 10/19/17 MR#: [id number] Acct: [id number] Name: LOULOU YOU Rep #: [id number] : 1995 Provider: Amee Schaffer MD Age/Sex: 21/F [place] [facility] [place] [facility] [place]: Signed Intake Vital Signs10/19/17 Height 5 ft 3 in 10/19/17 Weight: 243 lb 6 oz 10/19/17 Body Mass Index (BMI) 43.1 10/19/17 Blood Pressure 127/77 Intake Visit Reasons: ob routine, 2 week follow up 9w2d Is patient in pain?: No Allergies Penicillins [PCN] Allergy (Verified 10/19/17 16:47) Rash Medications vitamin,calcium,fcuvkoqb-yduo-efhxr acid tablet 1 tab PO QDAY 10/07/17 [History Confirmed 10/19/17] promethazine 12.5 mg tablet 12.5 mg PO Q6H PRN #60 tab 10/07/17 [Rx Confirmed 10/19/17] Last Menstral Period: 08/17/17 Zika: Zika virus screening: Negative : No PFSH PFSH Medical History Anxiety and depression (Acute) Family History Grandfather Cancer lung throat- smoker Father Diabetes Social History Smoking Status: Never smoker alcohol intake: never substance use type: does not use caffeine: Yes what type of physical activity do you participate in: walking frequency: 1-2 times per week seatbelt use: always do you feel safe at home: Yes additional social history: Boyfriend Alban- 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 OB Visit LITA Calculator Estimated Delivery Date 05/24/18 Based on LMP (certain) 08/17/17 Current WG 9w 0d Number 2 Initial Weight: 249 lb Date Weight BP Urine PFHR FuHt Pres MCTX DilatioFetal SVisit NProvideComment rot ov n t ote r s EGA Ef Gluco faced se 10/07/1248 lb 119/73 A A A A A 8 8 oz (+ 7w8 oz) B B B B B 2d Visit Notes Visit Date: 10/19/17 no vb cramping, neds 3 hour gtt Amee Schaffer MD on 10/19/17 Visit Date: 10/07/17 No visit notes to display ACOG First Trimester First Trimester: Desire for , Alcohol, Tobacco Cessation, Illicit/Recreational Drug/Substance Use, Intimate Partner Violence, Barriers to care, Unstable Housing, Communication Barriers, Environmental/Work Hazards, Anticipated Course of Care, Toxoplasmosis Precations, Use of Any medications, Sexual activity, Exercise, Dental Care, Sauna/Hot tub use, Seat Belt use, Childbirth classes/Hospital facilities, , Travel, Indications for US and Screening for Aneuploidy Diagnostics Diagnostics Labs Blood Type O POSITIVE 10/07/17 Antibody Screen NEGATIVE 10/07/17 Hct 40.1 % (37-47) 10/07/17 Hgb 13.8 g/dl (12.0-15.0) 10/07/17 Rubella IgG Antibody 141.1 IU/mL 10/07/17 RPR NONREACTIVE (NONREACTIVE) 10/07/17 Hep Bs Antigen Negative (Negative) 10/07/17 Chlam trachomat DNA PCR Negative (Negative) 10/07/17 N.gonorrhoeae DNA (PCR) Negative (Negative) 10/07/17 Glucose 1 Hr 50 gm 137 mg/dL (70-140) 10/07/17 Details: HIV: Urine Culture: Sequential Screen: NIPT Screen: Results [id number] Office Urine Glucose Negative Last Edit by Laine Sullivan on 10/19/17 16:52 Office Urine Protein Negative Last Edit by Laine Sullivan on 10/19/17 16:52 Assessment AND Plan Problems 1. Abnormal glucose R73.09 needs 3 hour gtt 2. Supervision of high risk in first trimester O LITA 05/24/18 boyfrienifeanyi [place] 3. BMI greater than 40 1st trimester glucola, weekly nsts and q4 week growth us after 32 weeks Plan Orders placed: none ACOG trimester education reviewed and updated. see problem list details for updated plan management information. [place] appropriate handout given. Orders Orders: Coding Level of Care Code OB Routine Diagnoses Abnormal glucose R73.09 Supervision of high risk in first trimester O Trimester: first trimester BMI greater than 40 10/19/17 1719 <Electronically signed by Amee Schaffer MD> Date [facility]: Date (if applicable) CC: MANAGER DISCOVERY OFFICE VISIT Observed: 10/07/2017 Status: F Source: [place] REPORT 9:06 PM [facility] 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 Is patient in pain?: No Allergies Penicillins [PCN] Allergy (Verified 10/07/17 15:53) Rash Medications vitamin,calcium,axubppgy-buos-xfabp acid tablet 1 tab PO QDAY 10/07/17 [History Confirmed 10/07/17] promethazine 12.5 mg tablet 12.5 mg PO Q6H PRN #60 tab 10/07/17 [Rx Confirmed 10/07/17] Last Menstral Period: 08/17/17 Zika: Zika virus screening: Negative : No PFSH PFSH Medical History Anxiety and depression (Acute) Family History Grandfather Cancer lung throat- smoker Father Diabetes Social History Smoking Status: Never smoker alcohol intake: never substance use type: does not use caffeine: Yes what type of physical activity do you participate in: walking frequency: 1-2 times per week seatbelt use: always do you feel safe at home: Yes additional social history: Boyfriend Alban- 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 OB Visit LITA Calculator Estimated Delivery Date 05/24/18 Based on LMP (certain) 08/17/17 Current WG 7w 2d Number 1 Comments: twin IUPs seen CRL measuring 7w0d. positive fhts x 2 150-170 Initial Weight: 249 lb Date Weight BP Urine PrFHR FuHt Pres MoCTX DilationFetal StVisit NoProviderComments E ot v te [place] G Effac lucose ed Menstrual History Last Menstral Period: 08/17/17 Reported LMP: definite Normal amount/duration: Yes On hormonal BC at conception: Yes Antepartum Record Genetic Screening: Congenital Heart Defect: Other, Neural Tube Defect: Other, Hemoglobinopathy Or Carrier: Other, Cystic Fibrosis: Other, Chromosome Abnormality: Other, Walter-Sachs: Other, Hemophilia: Other, Intellectual Disability/Autism: Other, Recurrent Loss/Stillbirth: Other, Other Structural Defect: Other, Other Genetic Disease: Other, Maternal Metabolic Disorder: Other Infection History: Live with someone with TB or Exposed to TB: No, Patient or Partner has history of Genital Herpes: No, Rash or Viral illness since last mentrual period: No, Prior GBS-Infected child: No, History of STD: Yes (chlamydia), HIV Infection: No, History of Hepatitis: No, Recent travel outside of [place]: No, Concern for Hep exposure: No, Varicella immune: Yes Medical History Medical History: Positive: Depression/ depression (on wellbutrin), Negative: Diabetes, Hypertension, Heart disease, Auto-immune disorder, Kidney disease/UTI, Neurologic/epilepsy, Psychiatric, Hepatitis/liver disease, Varicosities/phlebitis, Thyroid dysfunction, Trauma/domestic violence, History of blood transfusions, D (Rh) Sensitized, Pulmonary (e.g.,TB,Asthma), Seasonal allergies, Drug/latex allergies/reactions, Breast, Fire Extinguisher Mechanic surgery, Operations/hospitalizations, Anesthetic complications, History of abnormal pap, Uterine anomaly/shaila, Infertility, Anti-retroviral treatment, Relevant family history, Other ACOG First Trimester First Trimester: Desire for , Alcohol, Tobacco Cessation, Illicit/Recreational Drug/Substance Use, Intimate Partner Violence, Barriers to care, Unstable Housing, Communication Barriers, Environmental/Work Hazards, Anticipated Course of Care, Nurtrition and weight gain, Toxoplasmosis Precations, Use of Any medications, Sexual activity, Exercise, Dental Care, Sauna/Hot tub use, Seat Belt use, Childbirth classes/Hospital facilities, , Travel, Indications for US and Screening for Aneuploidy ROS Const Denies fever(s), Reports system reviewed and no additional complaints, except as docu, Reports fatigue Eyes Reports system reviewed and no additional complaints, except as docu ENT Reports system reviewed and no additional complaints, except as docu Card Denies chest pain, Denies shortness of breath Resp Reports system reviewed and no additional complaints, except as docu, Denies shortness of breath, Denies cough GI Reports nausea, Denies abdominal pain Reports system reviewed and no additional complaints, except as docu Musc Reports system reviewed and no additional complaints, except as docu Skin/Breast Reports system reviewed and no additional complaints, except as docu Neuro Yes system reviewed and no additional complaints, except as docu Psych Reports system reviewed and no additional complaints, except as docu Endo Reports fatigue, Reports system reviewed and no additional complaints, except as docu Exam Const General: healthy appearing, comfortable, no acute distress Orientation: alert [facility] Head: normal to inspection, atraumatic, normocephalic Ears: external ears normal, hearing grossly normal bilaterally Nose: nares normal, external nose normal Mouth: oral mucosae normal Teeth and gingiva: dentition normal Eyes General: appearance normal, both eyes and all related structures Neck Neck: no lymphadenopathy, supple, normal visual inspection Thyroid: thyroid normal Resp Effort AND Inspection: normal respiratory effort GI Inspection: normal to inspection Palpation: soft, no hepatosplenomegaly General: bladder normal to palpation External Female Exam: normal external appearance, normal appearance of the urethra Urethra: normal appearance of the urethra Speculum Exam - Vagina: normal appearance of the vagina, normal vaginal discharge Speculum Exam - Cervix: normal appearance of the cervix Bimanual Exam- Vagina AND Uterus: bladder normal to palpation, normal bimanual exam, uterus non-tender, other Bimanual Exam- Adnexa, other: adnexae non-tender Skin General: no rashes or lesions noted Neuro Motor: muscle tone normal throughout, no movement abnormalities noted Extrem General: normal to inspection, full ROM Assessment AND Plan Problems 1. BMI greater than 40 1st trimester glucola, weekly nsts and q4 week growth us after 32 weeks 2. Dichorionic diamniotic twin in first trimester O30.041 3. Supervision of high risk in first trimester O09.91 LITA 05/24/18 boyfriend Alban Isaiah Patient oriented to practice and discussed care expectations and screenings. ACOG book offered to patient. labs and 19-20 week anatomy ultrasound ordered. see problem list details for plan information. Genetic screening offered to patient and patient chose: considering testing Orders Orders: Medications New: Discontinued: ibuprofen Discontinued Reason: Order [id number] mg PO TID PRN PRN Pain Edilia Waters Briggs leted Supplemental Info ACOG book given and patient encouraged to read about nutrition, exercise, weight gain, and food avoidance in . Coding Level of Care Code OB Routine Diagnoses BMI greater than 40 Dichorionic diamniotic twin in first trimester O30.041 Trimester: first trimester Supervision of high risk in first trimester O09.91 Trimester: first trimester 10/07/172105 <Electronically signed by Amee Schaffer MD> Date Amee Schaffer MD Cosigner Signature: Date (if applicable) CC: CT/NG WCH BY PCR Collected: 10/07/2017 Status: F Source: [place] 5:24 PM [facility] REPOSITORY TYPE CODE TESTS RESULT OUT OF RANGE REFERENCE UNITS LAB L8200.2100 Negative Normal Chlam Negative Trac PCR LAB L8200.2200 Negative Normal NG by Negative PCR Performed By: #### L8200.2000, M100.0650 #### [facility] [address] [place], [address] Observed: 10/07/2017 Status: F Source: [place] CULTURE, URINE 5:24 PM [facility] REPOSITORY Urine Culture Group B strep present at below infection level. ORGANISM 1: Mixed Gram Positive Organisms [place] Count >100,000 MIX CULTURE Mixed contaminants. Submit a new specimen if indicated. Performed By: #### L8200.2000, M100.0650 #### [facility] [address] [place], [place], [address] CBC W/DIFF, AUTOMATED Collected: 10/07/2017 Status: F Source: [place] 5:05 PM [facility] REPOSITORY TYPE CODE TESTS RESULT OUT OF RANGE REFERENCE UNITS LAB L100.1000 4.4-11.0 K/mm3 Normal WBC 10.3 LAB L100.1200 4.2-5.4 M/mm3 Normal RBC 4.47 LAB L100.1300 12.0-15.0 g/dl Normal HGB 13.8 LAB L100.1400 37-47 % Normal HCT 40.1 LAB L100.1500 81-99 fL Normal MCV 89.7 LAB L100.1600 27.0-32.0 pg Normal MCH 30.9 LAB L100.1700 32-36 g/gl Normal MCHC 34.4 LAB L100.1810 11.6-14.6 % Normal RDW CV 11.9 LAB L100.1820 35.1-43.9 fl Normal RDW SD 38.4 LAB L100.1900 150-450 K/mm3 Normal PLT 207 LAB L100.2000 6.2-12.0 fl High MPV 12.8 LAB L100.2100 47-70 % High NEUT% 74.1 LAB L100.2200 19-41 % Low LY% 18.0 LAB L100.2300 0-10 % Normal MONO% 7.1 LAB L100.2400 0-5 % Normal EO% 0.4 LAB L100.2500 0-1 % Normal BASO% 0.1 LAB L100.2550 0.0-0.9 % Normal IM GRAN % 0.300 Result Comment: IG% - Immature Granulocytes (promyelocytes, myelocytes and metamyelocytes) > 1% indicates that a LEFT SHIFT is Present. LAB L100.2620 2.0-7.7 X10 3/uL Normal Absolute Neut 7.6 LAB L100.2720 0.83-4.51 X10 3/ul Normal Absolute Lymph 1.85 Performed By: #### L100.0100, B101.7450 #### [facility] [address] [facility] [place], [address] #### L3100.0390 #### [facility] (refer to report for specific site) refer to report for address and phone number TYPE AND SCREEN Collected: 10/07/2017 Status: F Source: [place] 5:05 PM [facility] REPOSITORY Order Comment: Reason for Type AND Screen/Red Cells: TYPE CODE TESTS RESULT OUT OF RANGE REFERENCE UNITS LAB B10.0800 O Normal BLOOD TYPE GEL POSITIVE LAB B100.4000 Normal Antibody NEGATIVE Screen Performed By: #### L100.0100, B101.7450 #### [facility] [address] [place] [address]. [place], [address] #### L3100.0390 #### [facility] (refer to report for specific site) refer to report for address and phone number HEPATITIS B SURFACE Collected: 10/07/2017 Status: F Source: [place] AG 5:05 PM [facility] REPOSITORY TYPE CODE TESTS RESULT OUT OF RANGE REFERENCE UNITS LAB L3100.0400 Negative Normal HB Negative SURF AG Result Comment: Performed at: - [facility] [id number] Adult Daycare Coordinator: Herminio Nash PhD, Phone: [phone] Performed By: #### L100.0100, B101.7450 #### [facility] [address] [place] [address]. [place], [address] #### L3100.0390 #### [facility] (refer to report for specific site) refer to report for address and phone number GLUCOSE CHALLENGE GEST Collected: 10/07/2017 Status: F Source: [place] 1H 50G 5:05 PM [facility] REPOSITORY TYPE CODE TESTS RESULT OUT OF RANGE REFERENCE UNITS LAB L501.0250 70-140 mg/dL Normal GLU GEST 137 50g 1H Performed By: #### L501.0250 #### [facility] [address] [place] [address]. [place], [address] RUBELLA IGG Collected: 10/07/2017 Status: F Source: [place] 5:05 PM [facility] REPOSITORY TYPE CODE TESTS RESULT OUT OF RANGE REFERENCE UNITS LAB L509.4000 IU/mL Normal Rubella IgG 141.1 Result Comment: Antibody results Interpretation of Immune Status < 5 IU/ml Presumed Non-immune 5 - < 10 IU/ml Equivocal > or = 10 IU/ml Presumed Immune Performed By: #### L509.4000, L3890.6005, L700.5000 #### [facility] [address] [place], [address] HIV - [facility] Collected: 10/07/2017 Status: F Source: [place] 5:05 PM [facility] REPOSITORY TYPE CODE TESTS RESULT OUT OF RANGE REFERENCE UNITS LAB L3890.6005 Nonreactive Normal HIV - [facility] Non-Reactive Performed By: #### L509.4000, L3890.6005, L700.5000 #### [facility] [address] [place], [address] RAPID PLASMIN REAGIN Collected: 10/07/2017 Status: F Source: [place] (RPR) 5:05 PM [facility] REPOSITORY TYPE CODE TESTS RESULT OUT OF REFERENCE UNITS RANGE LAB L700.5000 NONREACTIVE NONREACTIVE Normal RPR Performed By: #### L509.4000, L3890.6005, L700.5000 #### [facility] [address] [facility] [place], [address] US BREAST RT Observed: 08/11/2017 Status: F Source: [facility] UN[facility] COMPLETE 9:43 AM [place] [address] Patient: LOULOU YOU Phone#: : 1995 Age: 21 Gender: F Pt. Type: Out Account: [id number] Location: Ordering: [facility] Exam Date: 08/11/2017/8:04 Family Phys: Charge Code: [id number] Physician: [place] Order #: [id number] DLP Dose#: PROCEDURE: ULTRASOUND BREAST RT COMPARISON: None. INDICATIONS: Right Breast Pain, Lump TECHNIQUE: Breast ultrasound was performed, with evaluation focusing on all four quadrants. FINDINGS: DIAGNOSTIC CATEGORY 2--BENIGN FINDING: RIGHT BREAST: Simple benign-appearing cyst, anechoic echotexture, mid-breast depth, 12 o'clock position, upper breast are between the inner and outer quadrants, and 7x2x7 mm size. RECOMMENDATIONS: CLINICAL EVALUATION. PLEASE NOTE: A NORMAL MAMMOGRAM DOES NOT EXCLUDE THE POSSIBILITY OF BREAST CANCER. A CLINICALLY SUSPICIOUS PALPABLE LUMP SHOULD BE BIOPSIED. Dictated by: Danielle Loja MD on 08/11/2017 at 13:12 Approved by: Danielle Loja MD on 08/11/2017 at 13:12 ALLERGIES ALLERGIES DATE TYPE / CODE NAME / CODE REACTION SEVERITY SOURCE 05/10/2018 Drug Penicillins/[id number] Rash Unknown [place] Allergy/416 0476(RXNORM) [facility] 768905(RUST ED CT) Repository 01/11/2018 Drug PENICILLINS [facility]/20444 [facility] 1003([facility] Repository CT) ENCOUNTERS ENCOUNTERS ADMIT/DISCHARGE ACCOUNT ADMITTING ENCOUNTER LOCATION SOURCE NUMBER CLASS 05/10/2018/05/12/19 [id number] Manuel, Inpatient Broderick Lubin Encounter [facility] ing:WPRoom: Repository RJ240Uqi: 1 05/10/2018 [id number] Manuel Ambulatory BMSBuilding:Rita Lubin MS.[facility] Repository 05/10/2018 [id number] Manuel Ambulatory BMSBuilding:Rita Lubin MS.CF[facility] Repository 05/10/2018 [id number] Manuel Ambulatory BMSBuilding:Rita Lubin MS.CF[facility] Repository 05/06/2018 [id number] Ambulatory Building:[facility] Repository 05/04/2018/05/04/19 [id number] Ambulatory BMSBuilding:Rita Coulter MS.[facility] Repository 05/04/2018 [id number] Ambulatory BMSBuilding:Rita Villafana MS.CF[facility] Repository 04/29/2018/04/29/19 [id number] Ambulatory Building:[address] Repository 04/29/2018/04/29/19 [id number] Ambulatory [place] [facility] ing:WPOUTRoom Repository : WP012 04/29/2018 [id number] Ambulatory BMSBuilding:B Broderick MS.CF[facility] Repository 04/28/2018/04/28/19 [id number] Ambulatory [address] ing:WPOUTRoom Repository : OBT06 04/22/2018 [id number] Ambulatory Building:[facility] Repository 04/21/2018/04/21/19 [id number] Ambulatory BMSBuilding:B Broder[place] 19 MS[facility] Repository 04/14/2018/04/14/20 [id number] Ambulatory Building:[address] Repository 04/14/2018/04/14/20 [id number] Ambulatory Building:[address] Repository 04/07/2018/04/07/20 [id number] Ambulatory BMSBuilding:B Broderick 18 MS[facility] Repository 04/05/2018/04/05/20 [id number] Ambulatory Building:[address] Repository 03/22/2018/03/22/20 [id number] Ambulatory BMSBuilding:B [place] 18 [facility] Repository 03/08/2018/03/08/20 [id number] Ambulatory BMSBuilding:B [place] 18 [facility] Repository 03/08/2018 [id number] Ambulatory Building:[facility] Repository 02/22/2018 [id number] Ambulatory [facility] Hospital ing:LAB Repository 02/22/2018/02/23/20 [id number] Ambulatory BMSBuilding:B [place] 18 [facility] Repository 02/11/2018/02/12/20 [id number] Ambulatory Building:[address] Repository 01/28/2018/01/29/20 [id number] Ambulatory Building:[address] Repository 01/27/2018/01/28/20 [id number] Ambulatory BMSBuilding:B Broder[place] 18 [facility] Repository 01/25/2018/01/26/20 [id number] Ambulatory BMSBuilding:B Broder[place] 18 [facility] Repository 01/11/2018 [id number] Ambulatory Building:[facility] Repository 01/11/2018 [id number] Ambulatory Building:[facility] Repository 12/29/2017/12/30/19 [id number] Ambulatory BMSBuilding:B Rboderick 18 [facility] Repository 11/30/2017/12/01/19 [id number] Ambulatory BMSBuilding:B [place]der[place] 18 [facility] Repository 11/02/2017/11/03/19 [id number] Ambulatory BMSBuilding:B [place] 18 [facility] Repository 10/29/2017 [id number] Ambulatory [facility] Hospital ing:LAB Repository 10/20/2017/10/21/19 [id number] Ambulatory BMSBuilding:B [place] 18 [facility] Repository 10/19/2017/10/20/19 [id number] Ambulatory BMSBuilding:B [place] 18 [facility] Repository 10/07/2017 [id number] Ambulatory [facility] Hospital ing:LABSPEC Repository 10/07/2017 [id number] Ambulatory [facility] Hospital ing:LAB Repository 10/07/2017/10/08/19 [id number] Ambulatory BMSBuilding:B [place] 18 [facility] Repository 08/11/2017/08/12/19 [id number] [place], Ambulatory Doug Pompee 18 [facility] Repository PAYERS PAYERS ENCOUNTER GUARANTOR PAYER SUBSCRIBER SOURCE 05/10/2018 LOULOU D Primary LOULOU D [place] [id number] TODD Insurance:GAYEEMPbandar PENALOZA: [facility] Jose EnriquePO [address] Number: [id number], [id number] [place]ository [place] [address]Tpx: Date:7950-94-93FD JONATHAN 767622TZUTRSEAKIKO PIERCE (GB) 18048WP: 05/10/2018 Secondary LOULOU D Bro[place] Insurance:MOLINAPolicy WAGERSDOB: Community Number: [id number] Hospital [id number] Repository Date:6493-34-71PT [address] [place] [address] 06979AA: 05/10/2018 Tertiary NOT GIVENUNK [place] Insurance:SELF PAY [facility] Number: Effective Repository Date:2018-04-23 05/10/2018 LOULOU D Primary LOULOU D [place] [id number] CR Insurance:ANTHEMPolicy WAGERSDOB: Community [address] Number: [id number], [id number] [place]ository [place] [address]Jmf: Date:6774-80-74CE [address]AOZGMKOAKIKO PIERCE () 19714KI: 05/10/2018 Secondary LOULOU D [place] Insurance:MOLINAPolicy WAGERSDOB: Community Number: [id number] Hospital [id number] Repository Date:4771-81-81FO [address] [place] [address] 82310FX: 05/10/2018 Tertiary NOT GIVENUNK [place] Insurance:SELF PAY [facility] Number: Effective Repository Date:2018-05-10 05/10/2018 LOULOU D Primary LOULOU D [place] [id number] CR Insurance:ANTHEMPolicy WAGERSDOB: Community [address] Number: [id number], [id number] [place]ository [place] [address]Znf: Date:3817-72-10JK BOX AKIKO HODGES () [address]LJ: 05/10/2018 Secondary LOULOU D [place] Insurance:MOLINAPolicy WAGERSDOB: Community Number: [id number] Hospital [id number] Repository Date:8014-00-14OT [address] [place] [address] 31744AY: 05/10/2018 Tertiary NOT GIVENUNK [place] Insurance:SELF PAY [facility] Number: Effective Repository Date:2018-05-10 05/10/2018 LOULOU D Primary LOULOU D [place] [id number] CR Insurance:ANTHEMPolicy WAGERSDOB: Community [address] Number: [id number], [id number] [place]ository [place] [address]Sey: Date:8756-32-67YR [address] [place] [address] () 79[address]MM: 05/10/2018 Secondary LOULOU D [place] Insurance:MOLINAPolicy WAGERSDOB: Community Number: [id number] Hospital [id number] Repository Date:9008-73-79GH [address] [place] [address] 77588MP: 05/10/2018 Tertiary NOT GIVENUNK [place] Insurance:SELF PAY [facility] Number: Effective Repository Date:2018-05-10 05/06/2018 LOULOU Primary LOULOU [facility] WAGERSDOB: Insurance:MOLINAPolicy WAGERSDOB: [facility] Number: [id number] Repository [place] [address] [id number] [address] [place] [address], Date: [address] [place] [address]Eee: [place] [address] () 05/04/2018 LOULOU D Primary LOULOU D [place] [id number] CR Insurance:ANTHEMPolicy WAGERSDOB: Community [address] Number: [id number], [id number] [place]ository [place] [address]Anm: Date:0509-93-35WQ [address], [place] () [address]RH: 05/04/2018 Secondary LOULOU D [place] Insurance:MOLINAPolicy WAGERSDOB: Community Number: [id number] Hospital [id number] Repository Date:8928-87-46IE [address] [place] [address] 45146CJ: 05/04/2018 Tertiary NOT GIVENUNK [place] Insurance:SELF PAY [facility] Number: Effective Repository Date:2018-04-23 05/04/2018 LOULOU D Primary LOULOU D [place] [id number] [address] Insurance:ANTHEMPolicy WAGERSDOB: [facility] [address] Number: [id number], [id number] Repository [place] [address]Hzn: Date:2559-11-55SW [address]VXCKJXVAKIKO PIERCE () 859[address]RR: 05/04/2018 Secondary LOULOU D [place] Insurance:MOLINAPolicy WAGERSDOB: [facility] Number: [id number] Hospital [id number] Repository Date:3133-75-41DD [address] [place] [address] 20179CC: 05/04/2018 Tertiary NOT GIVENUNK [place] Insurance:SELF PAY [facility] Number: Effective Repository Date:2018-05-04 04/29/2018 LOULOU Primary LOULOU [facility] WAGERSDOB: Insurance:MOLINAPolicy WAGERSDOB: [facility] Number: [id number] Repository CR [address] [id number] 7 [address] [place] [address], Date: [address] [place] [address]Jwz: [place] [address] () 04/29/2018 LOULOU D Primary LOULOU D [place] [id number] CR Insurance:ANTHEMPolicy WAGERSDOB: [facility] [address] Number: [id number], [id number] Repository [place] [address]Rzd: Date:3691-70-48EH [address]PMFXQNOAKIKO PIERCE () 77[address]KS: 04/29/2018 Secondary LOULOU D [place] Insurance:MOLINAPolicy WAGERSDOB: Community Number: [id number] Hospital [id number] Repository Date:4823-31-31LX [address] [place] [address] 41656XT: 04/29/2018 Tertiary NOT GIVENUNK [place] Insurance:SELF PAY [facility] Number: Effective Repository Date:2018-04-29 04/29/2018 LOULOU D Primary Insurance:SELF NOT GIVENUNK [place] [id number] CR [facility] [address] [address] Number: Effective Hospital [address] [place] [address], Date:2018-04-29 [place]ository [place] [address]Kix: () 04/28/2018 LOULOU D Primary LOULOU D [place] [id number] [address] Insurance:ANTHEMPolicy WAGERSDOB: [facility] [address] Number: [id number], [id number] Repository [place] [address]Azy: Date:6210-78-95SK [address] [place] [address] () 53276QK: 04/28/2018 Secondary LOULOU D [place] Insurance:MOLINAPolicy WAGERSDOB: Community Number: [id number] Hospital [id number] Repository Date:5224-13-87NK [address] [place] [address] 55538DX: 04/28/2018 Tertiary NOT GIVENUNK [place] Insurance:SELF PAY [facility] Number: Effective Repository Date:2018-04-28 04/22/2018 LOULOU Primary LOULOU [facility] WAGERSDOB: Insurance:MOLINAPolicy WAGERSDOB: Hospital Number: [id number] Repository CR [address] [id number] 7 CR [address] [place] [address], Date: [address] [place] [address]Wyt: [place] [address] () 04/21/2018 LOULOU D Primary LOULOU D [place] [id number] CR Insurance:ANTHEMPolicy WAGERSDOB: Community [address] Number: [id number] [address], [id number] [place]ository [place] [address]Jdr: Date:1267-02-25CX BOX AKIKO HODGES () 58[address]AK: 04/21/2018 Secondary LOULOU D [place] Insurance:MOLINAPolicy WAGERSDOB: Community Number: [id number] Hospital [id number] Repository Date:6239-20-30CU [address] [place] [address] 30657GB: 04/21/2018 Tertiary NOT GIVENUNK [place] Insurance:SELF PAY [facility] Number: Effective Repository Date:2018-04-21 04/14/2018 LOULOU Primary LOULOU [facility] WAGERSDOB: Insurance:MOLINAPolicy WAGERSDOB: [facility] Number: [id number] Repository CR [address] [id number] 7 CR [address] [place] [address], Date: [address] [place] [address]Tpg: [place] [address] () 04/14/2018 LOULOU Primary LOULOU [facility] WAGERSDOB: Insurance:MOLINAPolicy WAGERSDOB: [facility] Number: [id number] Repository CR [address] [id number] 7 CR [address] [place] [address], Date: [address] [place] [address]Juq: [place] [address] () 04/07/2018 LOULOU D Primary LOULOU D [place] [id number] [address] Insurance:ANTHEMPolicy WAGERSDOB: [facility] [address] Number: [id number], [id number] [place]ository [place] [address]Wjj: Date:2496-84-62VP BOX AKIKO HODGES () 26076TZ: 04/07/2018 Secondary LOULOU D [place] Insurance:MOLINAPolicy WAGERSDOB: Community Number: [id number] Hospital [id number] Repository Date:6208-60-09JY [address] [place] [address] 46842FE: 04/07/2018 Tertiary NOT GIVENUNK [place] Insurance:SELF PAY [facility] Number: Effective Repository Date:2018-04-07 04/05/2018 LOULOU Primary LOULOU [facility] WAGERSDOB: Insurance:MOLINAPolicy WAGERSDOB: Hospital Number: [id number] Repository CR [address] [id number] 7 CR [address] [place] [address], Date: [address] [place] [address] 498[address]Xjr: [place] [address] () 03/22/2018 LOULOU D Primary LOULOU D [place] [id number] CR Insurance:ANTHEMPolicy WAGERSDOB: Community [address] Number: [id number], [id number] Repository [place] [address]Pjv: Date:9756-55-54GE [address] [place] [address] () 98187NC: 03/22/2018 Secondary LOULOU D [place] Insurance:MOLINAPolicy WAGERSDOB: Community Number: [id number] Hospital [id number] Repository Date:5702-59-59AT [address] [place] [address] 35593JI: 03/22/2018 Tertiary NOT GIVENUNK [place] Insurance:SELF PAY [facility] Number: Effective Repository Date:2018-03-22 03/08/2018 LOULOU D Primary LOULOU D [place] [id number] CR Insurance:MOLINAPolicy WAGERSDOB: Community [address] Number: [id number], [id number] [place]ository [place] [address]Dxd: Date:2882-20-53ZR [address] [place] [address] () 79859AR: 03/08/2018 Secondary NOT GIVENUNK [place] Insurance:SELF PAY [facility] Number: Effective Repository Date:2018-03-08 03/08/2018 LOULOU Primary LOULOU [facility] WAGERSDOB: Insurance:MOLINAPolicy [facility] Number: [id number] Repository CR [address] [id number] 7 CR [address] [place] [address], Date: [address] [place] [address] 75[address]Oxi: [place] [address] () 02/22/2018 LOULOU D Primary LOULOU D [place] [id number] CR Insurance:MOLINAPolicy WAGERSDOB: [facility] [address] Number: [id number] [id number] Repository [place] [address]Sdj: Date:3530-25-36WU [address] [place] [address] () 34107EV: 02/22/2018 Secondary NOT GIVENUNK [place] Insurance:SELF PAY [facility] Number: Effective Repository Date:2018-02-22 02/22/2018 LOULOU D Primary LOULOU D [place] [id number] CR Insurance:MOLINAPolicy WAGERSDOB: [facility] [address] Number: [id number] [id number] [place]ository [place] [address]Swa: Date:4458-15-69LP [address] [place] [address] () 22718YJ: 02/22/2018 Secondary NOT GIVENUNK [place] Insurance:SELF PAY [facility] Number: Effective Repository Date:2017-11-30 02/11/2018 LOULOU Primary LOULOU [facility] WAGERSDOB: Insurance:MOLINAPolicy WAGERSDOB: [facility] Number: [id number] Repository CR [address] [id number] 7 CR [address] [place] [address], Date: [address] [place] [address] 137[address]Opo: [place] [phone] () 01/28/2018 LOULOU Primary LOULOU [facility] WAGERSDOB: Insurance:MOLINAPolicy WAGERSDOB: [facility] Number: [id number] Repository CR [address] [id number] 7 CR [address] [place] [address], Date: [address] [place] [address] 675[address]Lit: [place] [address] () 01/27/2018 LOULOU D Primary LOULOU D [place] [id number] CR Insurance:ANTHEMPolicy WAGERSDOB: Community [address] Number: [id number], [id number] Repository [place] [address]Vwj: Date:1904-62-30UL BOX AKIKO HODGES () 674[address]IR: 01/27/2018 Secondary LOULOU D [place] Insurance:MOLINAPolicy WAGERSDOB: Community Number: [id number] Hospital [id number] Repository Date:5271-59-90MB [address] [place] [address] 53138VR: 01/27/2018 Tertiary NOT GIVENUNK [place] Insurance:SELF PAY [facility] Number: Effective Repository Date:2018-01-27 01/25/2018 LOULOU D Primary LOULOU D [place] [id number] CR Insurance:ANTHEMPolicy WAGERSDOB: [facility] [address] Number: [id number], [id number] Repository [place] [address]Rgo: Date:2219-57-91AU [address]APAYONWAKIKO PIERCE () 672[address]IP: 01/25/2018 Secondary LOULOU D [place] Insurance:MOLINAPolicy WAGERSDOB: Community Number: [id number] Hospital [id number] Repository Date:7761-98-40IK [address] [place] [address] 84676UW: 01/25/2018 Tertiary NOT GIVENUNK [place] Insurance:SELF PAY Community [facility]: Effective Repository Date:2017-12-28 01/11/2018 LOULOU Primary LOULOU [facility] WAGERSDOB: Insurance:MOLINAPolicy WAGERSDOB: [facility] Number: [id number] Repository CR [address] [id number] 7 CR [address] [place] [address], Date: [address] [place], [place] [address]: [place] [address] () 01/11/2018 LOULOU Primary LOUOLU [facility] WAGERSDOB: Insurance:MOLINAPolicy WAGERSDOB: [facility] Number: [id number] Repository CR [address] [id number] 7 CR [address] [place] [address], Date: [address] [place], [place] [address]Tel: [place] [address] () 12/29/2017 LOULOU E Primary LOULOU E [place] [id number] CR Insurance:ANTHEMPolicy WAGERSDOB: [facility] [address] Number: [id number] [id number] Repository [place] [address]Hpg: Date:9791-25-40EZ [address] [place] [address] [place] () 87[address]NG: 12/29/2017 Secondary LOULOU E [place] Insurance:MOLINAPolicy WAGERSDOB: Community Number: [id number] Hospital [id number] Repository Date:3477-02-33NO [address] [place] [address] 66590CM: 12/29/2017 Tertiary NOT GIVENUNK [place] Insurance:SELF PAY Community [facility]: Effective Repository Date:2017-12-22 11/30/2017 LOULOU E Primary BIANCA Ovi PALAFOXBYUNK [place] [id number] CR Insurance:ANTHEMPolicy Community [address] Number: [address], [id number] Repository [place] [address]Aus: Date:0766-83-91BF [address] AKIKO HODGES () 358[address]NP: 11/30/2017 Secondary NOT GIVENUNK [place] Insurance:SELF PAY [facility] Number: Effective Repository Date:2017-11-30 11/02/2017 LOULOU E Primary BIANCA [place] [id number] CR Insurance:ANTHEMPolicy Community [address] Number: [address], [id number] Repository [place] [address]Tiq: Date:0197-00-16AG [address]OX AKIKO HODGES () 35[address]WJ: 11/02/2017 Secondary NOT GIVENUNK [place] Insurance:SELF PAY Community [facility] Number: Effective Repository Date:2017-11-02 10/29/2017 LOULOU E Primary BIANCA JACKSON [place] [id number] CR Insurance:ANTHEMPolicy Community [address] Number: [address], [id number] Repository [place] [address]Itz: Date:2514-11-34CE BOX AKIKO HODGES () 555[address]ZN: 10/29/2017 Secondary NOT GIVENUNK [place] Insurance:SELF PAY Community [facility] Number: Effective Repository Date:2017-10-20 10/20/2017 LOULOU Primary BIANCA [place] [id number] CR Insurance:ANTHEMPolicy Community [address] Number: [address], [id number] [place]ository [place] [address]Efo: Date:2199-89-93XD BOX AKIKO HODGES () 59[address]FY: 10/20/2017 Secondary NOT GIVENUNK [place] Insurance:SELF PAY Community [facility] Number: Effective Repository Date:2017-10-20 10/19/2017 LOULOU Primary BIANCA A KIRBYUNK [place] [id number] CR Insurance:ANTHEMPolicy Community [address] Number: [address], [id number] Repository [place] [address]Nwh: Date:7749-18-44MF [address]OX AKIKO HODGES () 896[address]FE: 10/19/2017 Secondary NOT GIVENUNK [place] Insurance:SELF PAY [facility] Number: Effective Repository Date:2017-10-19 10/07/2017 LOULOU Primary BIANCA JACKSON [place] [id number] CR Insurance:ANTHEMPolicy Community [address] Number: [address], [id number] Repository [place] [address]Rvl: Date:1995-93-98AZ [address]FGVKPQK, [place] () [address]GP: 10/07/2017 Secondary NOT GIVENUNK [place] Insurance:SELF PAY [facility] Number: Effective Repository Date:2017-10-07 10/07/2017 LOULOU D Primary LOULOU D [place] [id number] CR Insurance:ANTHEMPolicy WAGERSDOB: Community [address] Number: [id number], [id number] Repository [place] [address]Umr: Date:6927-84-72Y[address]GPNWRP, [place] () [address]YX: 10/07/2017 Secondary NOT GIVENUNK [place] Insurance:SELF PAY [facility] Number: Effective Repository Date:2017-10-07 10/07/2017 LOULOU Primary LOULOU [place] [id number] Insurance:ANTHEMPolicy WAGERSDOB: Community [facility] [address] Number: [id number] [address] [id number] Repository [address] [place] [address], Date:8830-17-10HL [address] [place] [address]Ctq: [id number] PIERCE [address]XP: (729) () [phone] 10/07/2017 Secondary NOT GIVENUNK Broderick Insurance:SELF PAY [facility] Number: Effective Repository Date:2017-09-29 08/11/2017 LOULOU D Primary BIANCA YOUDOB: Insurance:GORGE BOURGEOIS JUSTICEDOB: [facility] [id number] [facility] [id number] [place]ository [place] [address]Qti: [place] [place] [id number] () Date:Plan Name:B2
== END 2018-05-12 13:15 | disposition home or self-care (01) | DRG 788 ==
PROVIDERS: Admitting Provider Obstetrics & Gynecology; Family Provider Family Medicine; PCP Family Medicine; Referring Provider Obstetrics & Gynecology; Visit Provider Obstetrics & Gynecology
PROC: 10D00Z1 Extraction of Products of Conception, Low, Open Approach (ICD-10-PCS; CPT 59514; principal; 2018-05-10 07:15)
DX: O30.043 Twin pregnancy, dichorionic/diamniotic, third trimester (principal); O32.1XX2 Maternal care for breech presentation, fetus 2; O32.1XX1 Maternal care for breech presentation, fetus 1; Z3A.38 38 weeks gestation of pregnancy; Z37.2 Twins, both liveborn; O99.344 Other mental disorders complicating childbirth; F32.9 Major depressive disorder, single episode, unspecified; F41.9 Anxiety disorder, unspecified; O75.89 Other specified complications of labor and delivery
CPT/HCPCS: 85027; 86850; 86900; 88307; 99218; J7120; A4216; G0378; J2405

== ENCOUNTER → 2018-06-21 17:07 | Outpatient (CLI) | payer BC, MEDICAID, SELFPAY ==
[2018-06-21 16:05] VITALS: BMI 45.8
[2018-06-25 12:14] LABS: HPV Reflexed? NOT INDICATED
== END ==
PROVIDERS: Family Provider Family Medicine; PCP Family Medicine; Referring Provider Obstetrics & Gynecology; Visit Provider Obstetrics & Gynecology
DX: Z12.4 Encounter for screening for malignant neoplasm of cervix (principal)
CPT/HCPCS: 87624; 88175; G0145

== ENCOUNTER → 2019-10-06 12:58 | Outpatient (CLI) | payer OTHER, MEDICAID, SELFPAY ==
[2019-10-06 09:57] VITALS: BMI 52.6
[2019-10-12 03:19] LABS: HPV APTIMA, High Risk Negative (Negative)
== END ==
PROVIDERS: PCP Family Medicine; Referring Provider Nurse Practitioner Women's Health; Visit Provider Nurse Practitioner Women's Health
DX: R87.612 Low grade squamous intraepithelial lesion on cytologic smear of cervix (LGSIL) (principal)
CPT/HCPCS: 87624; 88175; G0145

== ENCOUNTER → 2020-09-24 | Outpatient (CLI) | payer OTHER, SELFPAY ==
[2020-09-24 09:26] VITALS: BMI 45.8
[2020-09-24 18:13] LABS: Amphetamine Urine VISTA NEGATIVE (<1000 ng/mL); Barbiturate Urine VISTA NEGATIVE (< 200 ng/mL); Benzodiazepine Urine VISTA NEGATIVE (< 200 ng/mL); Cocaine Urine VISTA NEGATIVE (< 300 ng/mL); Ecstacy Urine VISTA NEGATIVE (< 500 ng/mL); Methadone Urine VISTA NEGATIVE (< 300 ng/mL); PCP Urine VISTA NEGATIVE (< 25 ng/mL); THC Urine VISTA NEGATIVE (< 50 ng/mL); Vista UDS pH Range 6
[2020-09-27 06:07] LABS: Chlamydia By Nucleic Acid AMP Negative (Negative)
[2020-09-27 08:45] LABS: Gonococcus By Nucleic Acid AMP Negative (Negative)
[2020-09-28 16:42] LABS: HPV Reflexed? NOT INDICATED
== END | disposition home or self-care (01) ==
LOC: LABSPEC 16:39
PROVIDERS: PCP Family Medicine; Visit Provider Obstetrics & Gynecology
DX: Z34.90 Encounter for supervision of normal pregnancy, unspecified, unspecified trimester (principal); Z12.4 Encounter for screening for malignant neoplasm of cervix
CPT/HCPCS: 80307; 87086; 87088; 87491; 87591; 88175; G0145

== ENCOUNTER → 2020-10-15 10:13 | Outpatient (CLI) | payer OTHER, SELFPAY ==
[2020-09-24 09:26] VITALS: BMI 45.8
--- NOTE | 2020-10-15 10:17 | US_ITS ---
STUDY: FIRST TRIMESTER OBSTETRICAL ULTRASOUND REASON FOR EXAM: Female, 24 years old spotting. Viability. LMP: 07/21/2020. TECHNIQUE: Transabdominal and Transvaginal TECHNICAL QUALITY: Adequate. PRIOR ULTRASOUND: None. FINDINGS: There is visualization of a single gestational sac in a normal intrauterine position. The mean sac diameter (MSD) measures 4.38 cm, indicating an estimated gestational age (EGA) of 9 weeks, 6 days. The gestational sac shape is within normal limits. There is no demonstrated yolk sac. The placenta is non-visualized. There is visualization of an embryo. The crown-rump length (CRL) measures 3.19 cm, indicating an estimated gestational age (EGA) of 9 weeks, 5 days. There is evidence of embryonic demise. The estimated gestation age (EGA) by LMP is 12 weeks, 2 days. The estimated date of delivery (LITA) by LMP is 04/27/2021. The estimated gestation age (EGA) by US is 9 weeks, 5 days. The estimated date of delivery (LITA) by US is 05/15/1999. The uterus measures 14 cm x 5.5 cm x 9.2cm. There is no demonstrated uterine fibroid. The cervix is closed. The right ovary measures 3.6 cm x 3 cm x 2.8 cm. A cyst is seen within the ovary measuring 2 cm x 2 cm x 2.1 cm. There is no visualized right adnexal mass or complex lesion. The left ovary measures 3.3 cm x 2.1 cm by 2 cm. There is no left ovarian cyst. There is no visualized left adnexal mass or complex lesion. There is no fluid in the cul de sac. US/Init OB < 14Wks US IMPRESSION: Embryonic demise. Small cyst in the right ovary. Electronically Signed: Albert Benjamin MD at 11:27 EDT , Service support ,
== END ==
LOC: OPUS 10:15
PROVIDERS: PCP Family Medicine; Referring Provider Obstetrics & Gynecology; Visit Provider Obstetrics & Gynecology
DX: O20.9 Hemorrhage in early pregnancy, unspecified (principal); Z3A.00 Weeks of gestation of pregnancy not specified
CPT/HCPCS: 76801

== ENCOUNTER 2020-10-18 05:54 | Day surgery (SDC) | payer OTHER, SELFPAY ==
[2020-10-15 11:21] VITALS: BMI 45.8
[2020-10-18 06:30] VITALS: BP 130/84; PULSE 94; RESP 18; TEMP 36.1; O2SAT 100; BMI 50.1
--- NOTE | 2020-10-18 06:33 | PCM.HP.BLA ---
History and Physical Date of Admission: 10/18/20 Intake Vital Signs 10/15/20 11:11 10/15/20 11:20 10/15/20 11:21 Height 5 ft 3 in 5 ft 3 in Weight: 283 lb BMI 45.8 50.1 45.8 BP 124/90 H Intake Visit Reasons: SAB Chief Complaint: follow up SAB, prev u/s Fifth Hand Required: No Is patient in pain?: No Allergies Penicillins [PCN] Allergy (Verified 09/11/20 12:04) Rash Medications prenat.vits,breann,zom-cjtx-bcwog 1 tab PO DAILY 09/11/20 [History Confirmed 10/15/20] Is last menstrual period known: No Post menopausal: No Patient : No : [facility] History Anxiety and depression History of twin in prior Surgical History S/P cholecystectomy Family History Grandfather Cancer lung throat- smoker Father Diabetes Social History adopted: No household members: spouse, family, children and other details: her mother lives with them number of children: 2 current occupational status: employed current occupation: [employer] Smoking Status: Never smoker alcohol intake: never substance use type: does not use caffeine: No what type of physical activity do you participate in: walking frequency: 1-2 times per week seatbelt use: always do you feel safe at home: Yes additional social history: Boyfriend 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 She dneis any fevers, some cramping. she is 12 weeks by LMP and preivous us, and on scan today has loss at 9w6d measurements. Female Reproductive History Menopausal Symptoms: No night sweats Pregancy History 2 Elective abortions Hx Para 1 Spontaneous abortions Hx # Term Pregnancies 1 Ectopic pregnancies Hx # Pregnancies Multiple births 1 # of living children 2 Past Pregnancies Del. Date Name GA/Weeks Outcome Route Bth Weight Gen Labor Lgth Anesthesia Del Leni Provider FOB 05/10/18 Andreina 38 live - full term 6lb 1oz Female [facility] Amee Luxkareem 05/10/18 Stefania 38 live - full term 6lbs 5oz Female [facility] Amee Jackson Delivery Date: 05/10/18 Fina Twins; Breech/Breech Laine Sullivan Delivery Date: 05/10/18 Fina Twins; Breech/Breech LaurieLaine ROS Const Constitutional: Denies fatigue, night sweats, weight gain or weight loss ENT ENT: Reports system reviewed and no additional complaints, except as documented Cardio Card: Denies chest pain Resp Resp: Denies cough or dyspnea GI GI: Reports as per HPI; Denies abdominal pain, constipation, nausea or vomiting : Denies nipple discharge, urinary frequency, urinary incontinence, urinary hesitancy, urinary urgency, vaginal discharge, vaginal dryness, vaginal odor or vaginal pruritus Musc Musc: Denies arthralgias, back pain or muscle weakness Skin Skin/Breast: Denies alopecia, change in hair, dry skin, breast mass, breast pain, breast skin changes or nipple discharge Neuro Neuro: Reports system reviewed and no additional complaints, except as documented Psych Psych: Reports system reviewed and no additional complaints, except as documented Endo Endo: Denies cold intolerance, excessive sweating, heat intolerance or polydipsia Paolo/Lymph Hematologic/Lymphatic: Denies easy bleeding, Denies easy bruising and Denies lymphadenopathy Exam Const General: cooperative, healthy appearing, comfortable, no acute distress and well developed Orientation: alert [facility] Head: normal to inspection and normocephalic Ears: hearing grossly normal bilaterally and external ears normal Nose: external nose normal and nares normal Face and sinus: normal facial exam Neck Neck: normal visual inspection and no lymphadenopathy Thyroid: thyroid normal Chest Chest palpation & inspection: normal inspection of the chest Resp Effort & Inspection: normal respiratory effort Cardio Rate: regular rate GI Inspection: normal to inspection and non-distended Palpation: soft and no hepatosplenomegaly Musc Other: gross motor intact no deficits, full bilateral strength Skin General: no rashes or lesions noted Neuro General: patient alert, patient awake, moves all extremities and no focal motor deficits Motor: muscle tone normal throughout Extrem General: normal to inspection and no pedal edema Psych Appearance: grossly normal Mental Status: mental status grossly normal Affect: normal affect Speech and Movement: speech and movement normal Coding Level of Care Code Off vis,est,level 4 Diagnoses Missed O02.1 Assessment and Plan Assessment and Plan (1) Missed : Status: Acute Comment: plan d and c Plan - Dr. Amee Jackson MD: After discussing the patient's diagnosis and treatment plan options, patient wishes to proceed with surgical management. I have discussed with the patient the risks, benefits, and alternatives of the procedure which include but are not limited to risks of anesthesia, bleeding, infection, possible damage to bowel, bladder, or surrounding vasculature which could lead to additional surgery to evaluate any complications. Patient agrees to procedure and wishes to proceed. ACOG/uptodate references given for additional information regarding procedure. UPDATE- I have seen the patient and performed any clinically relevant updates to the history and physical exam. Amee Jackson MD
[2020-10-18] MEDS: Doxycycline 100 MG CAPSULE PO (06:55)
[2020-10-18 07:02] LABS: Hematocrit 40.4 % (37-47); Hemoglobin 13.7 g/dL (12.0-15.0); Mean Corp Hgb Conc 33.9 g/dL (32-36); Mean Corpuscular Hgb 30.8 pg (27.0-32.0); Mean Corpuscular Volume 90.8 fL (81-99); Mean Platelet Vol. 11.3 fl (6.2-12.0); Platelet Count 210 K/mm3 (150-450); RBC Distribution Width SD 40.1 fl (35.1-43.9); Red Blood Count 4.45 M/mm3 (4.2-5.4); White Blood Count 7.6 K/mm3 (4.4-11.0)
--- NOTE | 2020-10-18 07:23 | OP.PCM_ITS ---
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 She was prepped and draped in the normal sterile fashion the dorsal lithotomy position. Bladder was drained of clear urine and anterior lip of the cervix was grasped and the uterus sounded to 12. Cervix was progressively dilated to allow passage of a 12MM suction curette. Progressive passes were made removing the retained products of conception without complication. Sharp curettage confirmed complete removal of the retained products. All instruments were removed from the vagina and excellent hemostasis was noted and the patient was taken to recovery in stable condition. Grafts/Implants Used: none Complications none Admit VTE Documentation VTE Present on Admission: No VTE Mechan Device Prophylaxis: SCD's Procedures Urinary/Genital 52xxx-59xxx: 52623 Surg Trtmt missed Ab, 1TM
[2020-10-18] MEDS: Lactated Ringers 1,000 ML 100 ML IV (07:25)
--- NOTE | 2020-10-18 07:25 | EX.PCM.DISCH ---
Discharge Instructions Procedure D&C Diet Discharge Diet: No restrictions Activity Discharge Activity: Return to Normal Activity, May Shower and May Take a Tub Bath (after 1 week) May resume sexual activity in: 1-2 weeks Weight Bearing Status: Weight bearing as tolerated Lifting Restrictions: none Dressing / Incision Call your doctor if you observe: Fever of 101 or Higher, Using more than 1 pad per hour, Shortness of breath and Uncontrolled pain Follow Up Care Please Follow Up With: Amee Jackson MD When: Call [phone] to schedule appointment. Test Results: Test results from this visit will be discussed in further detail at your follow-up appointment, if applicable. Discharge Plan Admission Primary Reason for Your Visit: miscarriage surgery Attending Provider: Amee Jackson Primary Care Provider: Louise oMon Discharge Orders/Prescriptions Referrals / Follow Up: Amee Jackson MD [STAFF PHYSICIAN] - Louise Moon PA-C [Primary Care Provider] - Disposition Disposition (needs filled in before D/C Order can be placed): Home, Self Care
--- NOTE | 2020-10-18 07:30 | POC_PTH ---
PATIENT: LOULOU YOU LOC: [facility] U#:[id number] AGE/SX: 24/F ROOM: RE10/18/[address]: Dr. Amee Jackson MD : 1995 BED: DIS: 10/18/2020 SPEC #: [id number] RECD: 10/18/20 08:14 STATUS: SHE ANJEL #: [id number] LAURA: 10/18/20 07:[address]: Amee Jackson DEPT: SURGICAL PATHOLOGY RECD BY: Opal Thornton ENTERED: 10/18/20 08:48 SP TYPE: PROD CONC OTHR DR: Louise Moon PA-C Tissues: Product of conception, NOS Procedures: Surgery Specimen Level IV HEADER OPERATION: Suction dilation and curettage PRE-OP DIAGNOSIS: Missed TISSUE SUBMITTED: Products of conception (Anora) MICROSCOPIC DIAGNOSIS Endometrium, curettage: Chorionic villi, decidualized stroma and trophoblastic cells consistent with products of conception. AM:mark 10/19/2020 MICROSCOPIC DESCRIPTION Slides are reviewed. GROSS DESCRIPTION Received fresh for Anora studies labeled with the patient's name is a specimen designated products of conception. The specimen consists of multiple fragments of pink hemorrhagic soft tissue that in aggregate measure 6 x 6 x 1 cm. parts are not identified. Tube Dispatcher portion is submitted for Anora studies. Tube Dispatcher sections are submitted in two cassettes. / SJ:mark 10/18/20 TC:5 CPT: 77269
[2020-10-18] MEDS: Lidocaine 1% (30 ml sdv) 30 ML Vial (07:40)
[2020-10-18 08:05] VITALS: BP 125/80; BP 130/84; PULSE 90; RESP 16; TEMP 35.9; O2SAT 94
[2020-10-18 08:10] VITALS: BP 130/84; BP 134/79; PULSE 93; RESP 16; O2SAT 94
[2020-10-18 08:15] VITALS: BP 122/66; BP 130/84; PULSE 94; RESP 16; O2SAT 94
[2020-10-18 08:20] VITALS: BP 120/75; BP 130/84; PULSE 82; RESP 16; TEMP 35.9; O2SAT 96
[2020-10-18 08:50] VITALS: BP 111/62; BP 130/84; PULSE 82; RESP 16; TEMP 36.3; O2SAT 98
[2020-10-19 08:30] LABS: Pathology Specimen OB SEE PATHOLOGY REPORT
== END 2020-10-18 09:01 | disposition home or self-care (01) ==
LOC: SDC 05:54 → AC 05:55
PROVIDERS: PCP Family Medicine; Referring Provider Obstetrics & Gynecology; Visit Provider Obstetrics & Gynecology
PROC: (CPT 59820; principal; 2020-10-18 07:15)
DX: O02.1 Missed abortion (principal)
CPT/HCPCS: 01965; 59820; 85027; 86850; 86900; 86901; 88305; J7120

== ENCOUNTER → 2020-11-01 | Outpatient (CLI) | payer OTHER, SELFPAY ==
--- NOTE | 2020-11-01 | IMM_PTH ---
PATIENT: LOULOU YOU LOC: [facility] U#:[id number] AGE/SX: 24/F ROOM: RE11/01/[address]: Dr. Amee Jackson MD : 1995 BED: DIS: 11/01/2020 SPEC #: [id number] RECD: 11/02/20 11:37 STATUS: SHE REQ #: [id number] LAURA: 11/01/20 00:[address]: Amee Jackson DEPT: IMMUNOHISTOCHEMISTRY RECD BY: Sheila Rich ENTERED: 11/02/20 11:38 SP TYPE: IMMUNO OT DR: Louise Moon PA-C Tissues: A - Uterine cervix, NOS Procedures: p16 (initial) KI-67 (add) PHYSICIAN & INSTITUTION [place] [id number] SPECIMEN INFORMATION: Tissue Source: A ? Biopsy 11 o?clock Clinical Info: Colposcopy Specimen Number: [id number] CPT code: 70695, 70836 METHODOLOGY: Deparaffinized sections of prefer/formalin-fixed tissue or PAP/DQ stained slides are incubated with monoclonal/polyclonal antibodies/oligonucleotide probes. Localization is made via biotin free immunoperoxidase method. Appropriate controls are performed and reacted as expected. Results on target cell population are indicated in the following table: RESULTS: ANTIBODY / CLONE RESULT Block A P16 (E6H4) positive, patchy to block-like Ki-67 (30-9) positive, low These tests were developed and their performance characteristics determined by [facility]. They may not have been cleared or approved by the U.S. Food and Drug Administration. The FDA has determined that such clearance or approval is not necessary. The above immunohistochemical/dualISH markers are ordered and reviewed by the Pathologist. INTERPRETATION: A. Cervix at 11 o?clock, biopsy: Consistent with mild and moderate squamous dysplasia (HSIL). AM:mark 11/06/2020
[2020-11-01 08:59] VITALS: BMI 50.1
--- NOTE | 2020-11-01 09:15 | CER_PTH ---
PATIENT: [facility]LOU YOU [facility] U#:[id number] AGE/SX: 24/F ROOM: RE11/01/[address]: Dr. Amee Jackson MD : 1995 BED: DIS: 11/01/2020 SPEC #: [id number] RECD: 11/01/20 11:46 STATUS: SHE ANJEL #: [id number] LAURA: 11/01/20 09:[address]: Amee Jackson DEPT: SURGICAL PATHOLOGY RECD BY: Charanjit Gupta ENTERED: 11/01/20 11:53 SP TYPE: CERV OTHR DR: Louise Moon PA-C Tissues: A - Uterine cervix, NOS B - Endocervical Procedures: Surgery Specimen Level IV HEADER OPERATION: Colposcopy PRE-OP DIAGNOSIS: Colposcopy TISSUE SUBMITTED: A ? Biopsy 11 o?clock, B - ECC MICROSCOPIC DIAGNOSIS A. Cervix at 11 o?clock, biopsy: Mild and focal moderate squamous dysplasia, SEA I-II (HSIL). Squamous metaplasia and acute and chronic inflammation. See comment. B. Endocervix, curettings: Rare benign glandular epithelial cells present. No evidence of dysplasia. AM:mark 11/02/2020 COMMENT A. Results from immunohistochemistry ([id number]) for surrogate HPV marker (p16) will be reported separately. Case has been reviewed in consultation with Dr. Jamison who concurs with the above diagnosis. IDC:CIPRIANO MICROSCOPIC DESCRIPTION Slides are reviewed. GROSS DESCRIPTION A - Received in fixative is one container labeled with the patient's name and designated 11 o'clock. The specimen consists of multiple irregular fragments of light franklin soft tissue that in aggregate measure 0.8 x 0.6 x 0.1 cm. The specimen is totally submitted in one cassette. B - Received in fixative is one container labeled with the patient's name and designated ECC. The specimen consists of a scant amount of soft tissue. The specimen is totally submitted for cell block preparation. / CIPRIANO:mark 11/01/20 TC:3 CPT: 53744 x2
== END | disposition home or self-care (01) ==
LOC: LABSPEC 11:51
PROVIDERS: PCP Family Medicine; Referring Provider Obstetrics & Gynecology; Visit Provider Obstetrics & Gynecology
DX: N87.1 Moderate cervical dysplasia (principal)
CPT/HCPCS: 88305; 88341; 88342

== ENCOUNTER 2020-12-18 06:01 | Day surgery (SDC) | payer OTHER, SELFPAY ==
[2020-11-01 08:59] VITALS: BMI 50.1
[2020-12-17 17:06] LABS: Absolute Lymphocyte Count 2.53 X10^3/uL (0.83-4.51); Absolute Neutrophil Count 6.8 X10^3/uL (2.0-7.7); Basophil# 0.04 X10^3/uL; Basophil% 0.4 % (0-1); Eosinophil# 0.13 X10^3/uL; Eosinophils% 1.3 % (0-5); Hematocrit 42.4 % (37-47); Hemoglobin 14.3 g/dL (12.0-15.0); Lymphocyte # 2.53 X10^3/ul (0.83-4.51); Lymphocyte % 24.4 % (19-41); Mean Corp Hgb Conc 33.7 g/dL (32-36); Mean Corpuscular Hgb 31.2 pg (27.0-32.0); Mean Corpuscular Volume 92.6 fL (81-99); Mean Platelet Vol. 11.3 fl (6.2-12.0); Monocyte# 0.78 X10^3/uL; Monocyte% 7.5 % (0-10); NRBC Flagged by Analyzer 0 % (0-5); Neutrophil # 6.83 X10^3/uL (2.7-7.7); Neutrophil % 65.9 % (47-70); Platelet Count 277 K/mm3 (150-450); RBC Distribution Width SD 41.1 fl (35.1-43.9); Red Blood Count 4.58 M/mm3 (4.2-5.4); White Blood Count 10.4 K/mm3 (4.4-11.0)
[2020-12-17 17:38] LABS: Internal QC Validated? YES +Cl - CLEAR BKGD; Pregnancy, Serum, hCG Quali. NEGATIVE Negative
[2020-12-18] VITALS (8 sets, daily range): BP systolic 102–132; BP diastolic 54–75; PULSE 89–102; RESP 16–18; TEMP 35.6–36.7; O2SAT 95–100; BMI 50.8
--- NOTE | 2020-12-18 | IMM_PTH ---
PATIENT: LOULOU YOU LOC: [facility] U#:[id number] AGE/SX: 25/F ROOM: RE12/18/[address]: Dr. Amee Jackson MD : 1995 BED: DIS: 12/18/2020 SPEC #: [id number] RECD: 12/19/20 14:52 STATUS: SHE REQ #: [id number] LAURA: 12/18/20 00:[address]: Amee Jackson DEPT: IMMUNOHISTOCHEMISTRY RECD BY: Sheila Rich ENTERED: 12/19/20 14:54 SP TYPE: IMMUNO OTHR DR: Louise Moon PA-C Tissues: A - UTERINE CERVIX LEEP Procedures: p16 (initial) KI-67 (add) P16 (add) PHYSICIAN & INSTITUTION [place] [phone] SPECIMEN INFORMATION: Tissue Source: A ? LEEP cervix tissue Clinical Info: Cervical intraepithelial neoplasia II Specimen Number: [id number] A1-A3 CPT code: 04346, 77658 x5 METHODOLOGY: Deparaffinized sections of prefer/formalin-fixed tissue or PAP/DQ stained slides are incubated with monoclonal/polyclonal antibodies/oligonucleotide probes. Localization is made via biotin free immunoperoxidase method. Appropriate controls are performed and reacted as expected. Results on target cell population are indicated in the following table: RESULTS: ANTIBODY / CLONE RESULT Block A1 P16 (E6H4) positive, focal, patchy Ki-67 (30-9) positive, low Block A2 P16 (E6H4) positive, focal, patchy Ki-67 (30-9) positive, low Block A3 P16 (E6H4) positive, focal, patchy Ki-67 (30-9) positive, low These tests were developed and their performance characteristics determined by [facility]. They may not have been cleared or approved by the U.S. Food and Drug Administration. The FDA has determined that such clearance or approval is not necessary. The above immunohistochemical/dualISH markers are ordered and reviewed by the Pathologist. INTERPRETATION: A. Cervix, LEEP conization: Consistent with focal HPV change. AM:mark 12/20/2020
--- NOTE | 2020-12-18 02:36 | HP.PCM_ITS ---
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 Is patient in pain?: No Allergies Penicillins [PCN] Allergy (Verified 12/11/20 13:27) Rash Medications bupropion HCl 300 mg 24 hr tablet, extended release 300 mg PO QAM #30 tab 11/05/20 [Rx Confirmed 12/11/20] norethindrone 1 mg-ethinyl estradiol 20 mcg (24)-iron 75 mg (4) tablet 1 tab PO QDAY #28 tab 12/11/20 [Rx Confirmed 12/11/20] Is last menstrual period known: No Post menopausal: No : No PFSH Medical History Anxiety and depression History of twin in prior Non-smoker Surgical History H/O dilation and curettage History of Hx of abdominal surgery S/P cholecystectomy Family History Grandfather Cancer lung throat- smoker Father Diabetes Social History adopted: No household members: spouse, family, children and other details: her mother lives with them number of children: 2 current occupational status: employed current occupation: [employer] Smoking Status: Never smoker alcohol intake: never substance use type: does not use caffeine: No what type of physical activity do you participate in: walking frequency: 1-2 times per week seatbelt use: always do you feel safe at home: Yes additional social history: Boyfriend Aris- Shake Feeder Patient works at [employer] [place] HPI preop LEEP Details: LOULOU CUNNINGHAM is a 25 year old who presents for preop visit for leep Female Reproductive History Menopausal Symptoms: No night sweats Pregancy History 2 Elective abortions Hx Para 1 Spontaneous abortions Hx # Term Pregnancies 1 Ectopic pregnancies Hx # Pregnancies Multiple births 1 # of living children 2 Past Pregnancies Del. Date Name GA/Weeks Outcome Route Bth Weight Gen Labor Lgth Anesthesia Del Locatn Provider FOB 05/10/18 Andreina 38 live - full term 6lb 1oz Female [facility] Amee Luxkareem 05/10/18 Stefania 38 live - full term 6lbs 5oz Female [facility] Amee Jackson Delivery Date: 05/10/18 Fina Twins; Breech/Breech Laine Sullivan Delivery Date: 05/10/18 Fina Twins; Breech/Breech Laine Sullivan ROS Const Constitutional: Denies fatigue, night sweats, weight gain or weight loss ENT ENT: Reports system reviewed and no additional complaints, except as documented Cardio Card: Denies chest pain Resp Resp: Denies cough or dyspnea GI GI: Reports as per HPI; Denies abdominal pain, constipation, nausea or vomiting : Denies nipple discharge, urinary frequency, urinary incontinence, urinary hesitancy, urinary urgency, vaginal discharge, vaginal dryness, vaginal odor or vaginal pruritus Musc Musc: Denies arthralgias, back pain or muscle weakness Skin Skin/Breast: Denies alopecia, change in hair, dry skin, breast mass, breast pain, breast skin changes or nipple discharge Neuro Neuro: Reports system reviewed and no additional complaints, except as documented Psych Psych: Reports system reviewed and no additional complaints, except as documented Endo Endo: Denies cold intolerance, excessive sweating, heat intolerance or polydipsia Paolo/Lymph Hematologic/Lymphatic: Denies easy bleeding, Denies easy bruising and Denies lymphadenopathy Exam Const General: cooperative, healthy appearing, comfortable, no acute distress and well developed Orientation: alert [facility] Head: normal to inspection and normocephalic Ears: hearing grossly normal bilaterally and external ears normal Nose: external nose normal and nares normal Face and sinus: normal facial exam Neck Neck: normal visual inspection and no lymphadenopathy Thyroid: thyroid normal Chest Chest palpation & inspection: normal inspection of the chest Resp Effort & Inspection: normal respiratory effort Auscultation: clear to auscultation bilaterally Cardio Rate: regular rate Rhythm: regular rhythm Heart Sounds: S1 normal and S2 normal GI Inspection: normal to inspection and non-distended Palpation: soft and no hepatosplenomegaly Musc Other: gross motor intact no deficits, full bilateral strength Skin General: no rashes or lesions noted Neuro General: patient alert, patient awake, moves all extremities and no focal motor deficits Motor: muscle tone normal throughout Extrem General: normal to inspection and no pedal edema Psych Appearance: grossly normal Mental Status: mental status grossly normal Affect: normal affect Speech and Movement: speech and movement normal Coding Level of Care Code No Charge Diagnoses SEA II (cervical intraepithelial neoplasia II) N87.1 Assessment and Plan Assessment and Plan (1) SEA II (cervical intraepithelial neoplasia II): Status: Acute Comment: discussed exp management vs surgical, proceed with LEEP Plan - Dr. Amee Jackson MD: After discussing the patient's diagnosis and treatment plan options, patient wishes to proceed with surgical management. I have discussed with the patient the risks, benefits, and alternatives of the procedure which include but are not limited to risks of anesthesia, bleeding, infection, possible damage to bowel, bladder, or surrounding vasculature which could lead to additional surgery to evaluate any complications. Patient agrees to procedure and wishes to proceed. ACOG/uptodate references given for additional information regarding procedure. Plan Details Other Medications: New: norethindrone-e.estradiol-iron 1 mg-20 mcg (24)/75 mg (4) () 1 TAB PO QDAY 28 tabs 12RF UPDATE- I have seen the patient and performed any clinically relevant updates to the history and physical exam. Amee Jackson MD
[2020-12-18 06:35] LABS: Internal QC Validated? YES +Cl - CLEAR BKGD; Pregnancy, Urine Negative Negative
[2020-12-18] MEDS: Lidocaine 1% (20 ml mdv) 20 ML Vial (07:23)
[2020-12-18] MEDS: FERRIC SUBSULFATE 8 GM SOLN (07:23)
[2020-12-18] MEDS: Iodine/Potassium Iodide 14ML Bottle 1 DRP TOPICAL (07:23)
--- NOTE | 2020-12-18 07:24 | PCM.OPRPT ---
Problems Associated Problem List Diagnoses (1) SEA II (cervical intraepithelial neoplasia II): Report of Operation Date of Procedure: 12/18/20 Pre-Operative Diagnosis: see problem list Post-Operative Diagnosis: same Surgery/Procedure Performed:: LEEP procedure Description of Surgical Findings:: grossly nl cervix patient financial services coordinator: None Type of Anesthesia: General and Local Special Medications: monsels paste Specimen's removed: cervix ecc Drains: none Estimated Blood Loss (mL): 50 Fluids Replaced: crystalloid Description of Procedure: Paracervical block was placed with 1% lidocaine and using a loop electrode the outer part of the cervix was removed including the squamocolumnar junction. Endocervical curettings were taken and the base of the cervix was cauterized around the borders and the base to obtain excellent hemostasis. Monsel's paste was placed and patient was awoken and taken recovery in stable condition. Grafts/Implants Used: none Complications none Admit VTE Documentation VTE Present on Admission: No VTE Mechan Device Prophylaxis: SCD's Multi Select Codes Urinary/Genital Urinary/Genital CPT Codes: 55240 LEEP
--- NOTE | 2020-12-18 07:25 | EX.PCM.DISCH ---
Discharge Instructions Procedure LEEP Diet Discharge Diet: No restrictions Activity Discharge Activity: Return to Normal Activity and May Not Drive (while taking narcotic pain medications.) May resume sexual activity in: 4 weeks (Nothing in the vagina for 4 weeks.) Dressing / Incision Call your doctor if you observe: Fever of 101 or Higher and Using more than 1 pad per hour Follow Up Care Please Follow Up With: Amee Jackson MD When: Call [phone] for follow-up appointment. Test Results: Test results from this visit will be discussed in further detail at your follow-up appointment, if applicable. Discharge Plan Admission Primary Reason for Your Visit: SHANTEL Attending Provider: Amee Jackson Primary Care Provider: Louise Moon Discharge Orders/Prescriptions Prescriptions: No Action norethindrone-e.estradiol-iron [Junel Fe 24] 1 mg-20 mcg (24)/75 mg (4) tablet 1 tab PO QDAY Qty: 28 RF: 12 bupropion HCl [Wellbutrin XL] 300 mg tablet extended release 24 hr 300 mg PO QAM Qty: 30 RF: 12 Referrals / Follow Up: Louise Moon, PA-C [Primary Care Provider] - Disposition Disposition (needs filled in before D/C Order can be placed): Home, Self Care
--- NOTE | 2020-12-18 07:30 | CONE_PTH ---
PATIENT: LOULOU YOU LOC: [facility] [place] U#:[id number] AGE/SX: 25/F ROOM: RE12/18/[address]: Dr. Amee Jackson MD : 1995 BED: DIS: 12/18/2020 SPEC #: [id number] RECD: 12/18/20 10:27 STATUS: SHE REJennifer #: [id number] ALURA: 12/18/20 07:[address]: Amee Jackson DEPT: SURGICAL PATHOLOGY RECD BY: Opal Thornton ENTERED: 12/18/20 11:43 SP TYPE: Leep Cone RO DR: Louise Moon PA-C Tissues: A - UTERINE CERVIX LEEP B - Endocervical Procedures: Surgery Specimen Level IV Surgery Specimen Level V HEADER OPERATION: LEEP cone PRE-OP DIAGNOSIS: Cervical intraepithelial neoplasia II TISSUE SUBMITTED: A ? LEEP cervix tissue, B ? Endocervical tissue MICROSCOPIC DIAGNOSIS A. Cervix, LEEP conization: Mild squamous dysplasia, SEA I (LSIL). Margins of excision are free of dysplasia. Squamous metaplasia and acute and chronic inflammation. See comment. B. Endocervix, curettings: Strips of benign superficial endocervix. No evidence of dysplasia. AM:mark 12/19/2020 COMMENT A. Results from immunohistochemistry ([id number]) for surrogate HPV marker (p16) will be reported separately. Reference is made to the patient's cervical biopsy ([id number]) in which mild and focal moderate squamous dysplasia was identified. Case has been reviewed in consultation with Dr. Jamison who concurs with the above diagnosis. IDC:SJ MICROSCOPIC DESCRIPTION Slides are reviewed. GROSS DESCRIPTION A - Received in fixative is one container labeled with the patient's name and designated LEEP tissue cervix. The specimen consists of a franklin, indurated piece of LEEP conization measuring 1.6 x 1.5 cm and up to 0.5 cm in length. No mucosal lesion is identified. Nonmucosal surface is inked black. The endocervical margin is inked blue. The specimen is not oriented. The specimen is radially sectioned and submitted entirely in four cassettes with each cassette containing one quadrant. B - Received in fixative is one container labeled with the patient's name and designated endocervical tissue. The specimen consists of multiple irregular fragments of franklin mucoid tissue that in aggregate measure 1.5 x 1 x 0.1 cm. The specimen is totally submitted in one cassette. / SJ:rg 12/18/20 TC:3 CPT: 33805, 08555
== END 2020-12-18 08:46 | disposition home or self-care (01) ==
LOC: SDC 06:02 → AC 06:10
PROVIDERS: PCP Family Medicine; Referring Provider Obstetrics & Gynecology; Visit Provider Obstetrics & Gynecology
PROC: 0UBC7ZZ Excision of Cervix, Via Natural or Artificial Opening (ICD-10-PCS; CPT 57522; principal; 2020-12-18 07:15)
DX: N87.0 Mild cervical dysplasia (principal); F32.9 Major depressive disorder, single episode, unspecified; F41.9 Anxiety disorder, unspecified; Z79.899 Other long term (current) drug therapy
CPT/HCPCS: 00940; 57522; 36415; 81025; 84703; 85025; 86850; 86900; 86901; 87426; 88305; 88307; 88341; 88342; J7120; J2405

== ENCOUNTER → 2020-12-31 | Outpatient (CLI) | payer OTHER, SELFPAY | END | disposition home or self-care (01) | LOC: LABSPEC 01-01 09:51 | PROVIDERS: PCP Family Medicine; Referring Provider Obstetrics & Gynecology; Visit Provider Obstetrics & Gynecology | DX: N89.8 Other specified noninflammatory disorders of vagina (principal) | CPT/HCPCS: 87070; 87205 ==

== ENCOUNTER → 2022-02-19 | Outpatient (CLI) | payer OTHER, SELFPAY ==
[2022-02-28 15:14] LABS: HPV Reflexed? NOT INDICATED
== END | disposition home or self-care (01) ==
LOC: LABSPEC 11:40
PROVIDERS: PCP Family Medicine; Referring Provider Nurse Practitioner Women's Health; Visit Provider Nurse Practitioner Women's Health
DX: Z12.4 Encounter for screening for malignant neoplasm of cervix (principal)
CPT/HCPCS: 88175; G0145

== ENCOUNTER → 2022-03-27 | Outpatient (CLI) | payer OTHER, SELFPAY ==
[2022-03-30 07:07] LABS: Chlamydia By Nucleic Acid AMP Negative (Negative)
[2022-03-30 07:23] LABS: Gonococcus By Nucleic Acid AMP Negative (Negative)
== END | disposition home or self-care (01) ==
PROVIDERS: PCP Family Medicine; Referring Provider Obstetrics & Gynecology; Visit Provider Obstetrics & Gynecology
DX: N76.0 Acute vaginitis (principal); Z11.3 Encounter for screening for infections with a predominantly sexual mode of transmission
CPT/HCPCS: 87070; 87205; 87491; 87591

== ENCOUNTER → 2023-03-25 | Outpatient (CLI) | payer OTHER, SELFPAY ==
[2023-03-28 06:09] LABS: Chlamydia By Nucleic Acid AMP Negative (Negative); Gonococcus By Nucleic Acid AMP Negative (Negative)
[2023-04-01 18:24] LABS: HPV Reflexed? NOT INDICATED
== END | disposition home or self-care (01) ==
LOC: LABSPEC 13:41
PROVIDERS: PCP Family Medicine; Referring Provider Registered Nurse; Visit Provider Registered Nurse
DX: N91.5 Oligomenorrhea, unspecified (principal); Z12.4 Encounter for screening for malignant neoplasm of cervix
CPT/HCPCS: 87491; 87591; 88175; G0145

== ENCOUNTER → 2023-04-15 | Outpatient (CLI) | payer OTHER, SELFPAY ==
[2023-04-15 12:59] LABS: Free T3 3.2 pg/mL (2.18-3.98); T4 Free Direct 1.21 ng/dL (0.76-1.46); Thyroid Stim Hormone (TSH) 1.14 uIU/mL (0.358-3.74)
[2023-04-15 13:25] LABS: Hemoglobin A1c 4.7 % (3.8-5.6)
[2023-04-19 20:07] LABS: 17-Hydroxyprogesterone 40 ng/dL (.)
[2023-04-26 17:07] LABS: Testosterone, % Free 2.03 % (0.50-2.80); Testosterone, Free 0.71 ng/dL (0.10-0.85); Testosterone, Total 35 ng/dL (13-71)
== END | disposition home or self-care (01) ==
LOC: LAB 11:20
PROVIDERS: PCP Family Medicine; Referring Provider Registered Nurse; Visit Provider Registered Nurse
DX: N91.5 Oligomenorrhea, unspecified (principal)
CPT/HCPCS: 36415; 82627; 82652; 83036; 83498; 84402; 84403; 84439; 84443; 84481; 82626

== ENCOUNTER → 2023-06-03 | Outpatient (CLI) | payer OTHER, SELFPAY ==
--- OUTSIDE RECORDS SUMMARY | 2023-06-03 19:18 | XMS RPT_ITS | CCD ---
Author Name Unknown Address [id number] [place] [address] Organization [facility] Care Team Providers Care Manganese Breaker Name Role Phone SERGIO JEFFREY Attending Unavailable KISHAN SCHAFFER Referring Unavailabl e NO PRIMARY CARE, Primary Care Unavailable SERGIO JEFFREY Attending Unavailable KISHAN SCHAFFER Referring Unavailabl e NO PRIMARY CARE, Primary Care Unavailable ESTELLA YUN Attending Unavailable KISHAN SCHAFFER Referring Unavailabl e NO PRIMARY CARE, Primary Care Unavailable SERGIO JEFFREY Attending Unavailable KISHAN SCHAFFER Referring Unavailabl e NO PRIMARY CARE, Primary Care Unavailable SERGIO JEFFREY Attending Unavailable KISHAN SCHAFFER Referring Unavailabl e APPLETON, ARTURO D Primary Care Unavailable SERGIO JEFFREY Attending Unavailable KISHAN SCHAFFER Referring Unavailabl e APPLETON, ARTURO D Primary Care Unavailable MALLORY AGUILAR Attending Unavailable KISHAN SCHAFFER Referring Unavailabl e APPLETON, ARTURO D Primary Care Unavailable LUCINDA POLLACK Attending Unavailable APPLETON ARTURO D Referring Unavailable APPLETON ARTURO D Primary Care Unavailable RED ALBERTO Attending Unavailable KISHAN SCHAFFER Referring Unavailabl e APPLETON, ARTURO D Primary Care Unavailable NATHAN RODRIUGEZ Attending KISHAN Mg Referring Unavailabl e APPLETON, ARTURO D Primary Care Unavailable MALLORY AGUILAR Attending Unavailable KISHAN SCHAFFER Referring Unavailabl e APPLETON, ARTURO D Primary Care Unavailable APPLETON, ARTURO PAC Consulting Unavailable APPLETON, ARTURO Attending Unavailable APPLETON ARTURO Primary Care Unavailable APPLETON ARTURO Admitting Unavailable PROVIDER, UNKNOWN Consulting Unavailable PHOEBE HOLLEY Attending Unavailable PHOEBE HOLLEY Primary Care Unavailable PHOEBE HOLLEY Admitting Unavailable ARTURO MOON PAC Consulting Unavailable PROVIDER, UNKNOWN Consulting Unavailable Colleen Cedillo CNM Unavailable Broderick tick inspector, . . Unavailable [phone] General Surgery Provider Unavailable Unavail able Bandar PUENTES, Kristin Estes Unavailable Aiden PUENTES, Jame Kaur Unavailable Isrrael PUENTES, Merivn Gonzalez Unavailable Sarai VALENCIA, Arturo Marcelo Unavailable Vess SODA ROOM OPERATOR, Neteresae L Unavailable Unavailable Arnulfo SODA ROOM OPERATOR, Leny E Unavailable Unavailable Félix RN, Brooke Thomas Unavailable Unavailable Nathan TAMEZN, Zeinab Che Unavailable Unavailab nena Siddiqui SODA ROOM OPERATOR, Mallory Unavailable Unavailnicolas Be PA-C, Estella Saldivar Unavailable Alexsandra SODA ROOM OPERATOR, Yolande K Unavailable Unamiya QUIROGAC, Skinny Richarsd Unavailable Franko SODA ROOM OPERATOR, Veronica Unavailable Unavailable Mary Haji MA Unavailable Unavailable Unavailable Unavailable Unavailable Unavailable Allergies Allergy Classification Reported Allergen(s) Allergy Type Date of Onset Reaction(s) Facility (1 source) Penicillins; Translations: [PENICILLINS] Propensity to adverse reactions to drug (disorder) 8 [facility] Repository (3 sources) Penicillin V Drug Allergy [facility], [facility]. Medications Current Medications Medication Drug Class(es) Dates Sig (Normalized) Sig (Original) semaglutide (weight loss) 0.25 mg/0.5 mL subcutaneous pen injector (1 source) Start: 05-20-2023 inject 0.25 mL by subcutaneous injection every week semaglutide (weight loss) 0.25 mg/0.5 mL subcutaneous pen injector ; 0.25 mL weekly for 0 days Quantity: 1 {Milliliter} Refills: 0 Ordered: 20-May-2023 ARAVIND Cedillo Start: 20-May-2023 Comments: Substitute: Semaglutide/Cyanoco balamin 1mg/0.5mg per mL Completed/Discontinued Medications Medication Drug Class(es) Dates Sig (Normalized) Sig (Original) azithromycin 500 mg oral tablet (6 sources) Macrolide Antimicrobial Start: 04-09-2016 End: 07-10-2016 Zithromax 500 MG Oral Tablet ; 2 (two) Tablet NOW for 0 days Quantity: 2 {Tablet} Refills: 0 Ordered: 10-Jul-2016 MICH Heard Start: 09-Apr-2016 End: 10-Jul-2016 Status: Inactive Problems Active Problems Problem Classification Problem Date Documented Date Episodic/Chronic Abdominal pain (9 sources) Right upper quadrant pain; Translations: [Right upper quadrant pain] 2018 Episodic Adjustment disorders (6 sources) Grief finding; Translations: [Adjustment disorder with depressed mood] 04-27-2023 Chronic Administrative/social admission (6 sources) Issue of repeat prescriptions 02-26-2017 Episodic Allergic reactions (12 sources) Inflammatory dermatosis; Translations: [Dermatitis, unspecified] 08-09-2019 Episodic Bacterial infection; unspecified site (6 sources) Chlamydial infection; Translations: [Chlamydial infection, unspecified] 03-25-2017 Episodic Biliary tract disease (6 sources) Gallstone; Translations: [Calculus of gallbladder without cholecystitis without obstruction] 2018 Episodic Diseases of mouth; excluding dental (6 sources) Glossodynia; Translations: [Glossodynia] 11-21-2020 Episodic Genitourinary symptoms and ill-defined conditions (6 sources) Dysuria; Translations: [Dysuria] 06-24-2017 Episodic Immunizations and screening for infectious disease (20 sources) Patient encounter status; Translations: [Encounter for screening for respiratory tuberculosis] 12-03-2015 Episodic Inflammation; infection of eye (except that caused by tuberculosis or sexually transmitteddisease) (20 sources) Conjunctivitis; Translations: [Unspecified conjunctivitis] 10-14-2013 Episodic Malaise and fatigue (7 sources) Other fatigue; Translations: [Fatigue] Onset: 02-28-2022 05-23-2019 Episodic Menstrual disorders (6 sources) Amenorrhea; Translations: [Amenorrhea, unspecified] 03-25-2017 Chronic Mood disorders (20 sources) Depressive disorder; Translations: [Depressive disorder, not elsewhere classified] 11-21-2020 Chronic Mycoses (6 sources) Candidiasis of skin; Translations: [Candidiasis of skin and nail] 08-09-2019 Episodic Nonmalignant breast conditions (6 sources) Breast lump; Translations: [Unspecified lump in unspecified breast] 2018 Episodic Other female genital disorders (6 sources) Tight hymenal ring; Translations: [Tight hymenal ring] 03-25-2017 Episodic Other inflammatory condition of skin (6 sources) Rosacea; Translations: [Rosacea, unspecified] 04-27-2023 Chronic Other nervous system disorders (3 sources) Ramos's palsy; Translations: [Ramos's palsy] 02-24-2011 Episodic Other nutritional; endocrine; and metabolic disorders (20 sources) Body mass index 40+ - severely obese; Translations: [Body mass index (BMI) 40.0-44.9, adult] 2018 Chronic Other nutritional; endocrine; and metabolic disorders (9 sources) Morbid obesity; Translations: [Morbid (severe) obesity due to excess calories] 04-27-2023 Chronic Past or Other Problems Problem Classification Problem Date Documented Da te Episodic/Chronic Mood disorders (3 sources) Mood disorders 09-02-2018 Unclassified (3 sources) Obesity - The patient's appetite is normal. The patient's dietary intake is normal. The patient has gained pounds. The symptoms have been associated with family history of obesity and fatigue, while the symptoms have not been associated with abdominal pain, amenorrhea, cold intolerance, decreased libido, dyspnea, easy bruisability, edema, headache, hirsutism, hoarseness, striae or visual disturbances. Note for Obesity : pt has always been a steady weightneck- 17 inches bust- 25.5 inches waist- 56 incheships- 58.75 inches 04-27-2023 Unclassified (3 sources) Well adult female - The patient feels well with no complaints, has good energy level and is sleeping well. The first day of the last menstrual period was :. The patient is not using any method of contraception at this time. The patient has a balanced diet. The patient does not exercise. The patient sleeps 7 hours per night. 11-21-2020 Unclassified (3 sources) Rash - The onset of the rash has been acute and has been occurring in a persistent pattern for 2 weeks. The course has been constant. The rash is characterized as red and raised above the skin. The rash was first seen on the upper extremity (bilateral armpits). It spread to the upper extremity (now only under right armpit - she was able to clear the left armpit with topical athlete foot cream). There has been associated itching, while there has been no associated drainage or edema. There has been no associated fever or loss of sensation. 08-01-2019 Unclassified (3 sources) Cold Symptoms - Symptoms include nasal congestion, runny nose, ear pain (left ear), sore throat, scratchy throat, dry cough, productive cough and facial pain, but do not include sneezing, wheezing, fever, chills, general malaise or headache. The onset was sudden 2 day(s) ago. The symptoms occur constantly. The patient describes this as moderate in severity and worsening. Current treatment includes non-prescription cold medication. Risk factors do not include smoking. The patient has not been exposed to an individual with a cough or an individual with similar symptoms. Medical history includes seasonal allergies, but patient denies history of asthma, tonsillectomy or recurrent ear infections. 06-23-2019 Unclassified (3 sources) discuss medication - since starting venlafaxine 75mg in August patient has gained 17 pounds, states she feels hungry and wants to eat all the time. The medication is managing her depression/anxiety symptoms, although she does feel emotional at times. feels that the benefit of the medication is not worth the weight gain - would like to return to wellbutrin which helped depression but not anxiety fully 01-13-2019 Unclassified (3 sources) discuss change of anti-depressant - Patient has seen [facility] in the past and was seen for depression. Provider started pt. on bupropion 300 mg and medication was helping pt. 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 Pt. has continued this medication post (7 weeks), but was noting some side effect of racing heart rate with medication since delivery. Pt. did not take her sertraline last night - palpitations were not noted. Pt. is intersted in discontinuing sertraline and re-starting bupropion. Patient is not . 06-30-2018 Unclassified (3 sources) Breast lump - The lump is on the right breast. The onset of the lump has been gradual and has been occurring in a persistent pattern for 2 months. The course has been increasing. The lump is described as tender. The lump is described as moderate. The first day of the last menstrual period was : (07/14/2017). Note for Breast lump : sister (age 39) has just undergone bilateral mastectomy for breast CA 08-04-2017 Unclassified (3 sources) UTI - Symptoms include dysuria, urinary urgency and dark urine, but do not include urinary frequency, hematuria, malodorous urine, flank pain, abdominal pain or back pain. There is no assiciated pain. There is no radiation. The patient describes the pain as burning. Onset was sudden 7 hour(s) ago. The symptoms occur intermittently. The patient describes this as mild and unchanged. Symptoms are not relieved by urinary anesthetics, cranberry juice or non-opioid analgesics. Associated symptoms include vaginal discharge (possibly), but do not include fever, chills, nausea or vomiting. The frequency of episodes has been time(s) a year. Risk factors do not include current . 06-24-2017 Unclassified (3 sources) Follow Up for Multiple Chronic Conditions - The patient is here for follow-up of depression. The patient has stopped the recommended medications. The patient has low activity level and no regular exercise program. The patient's dietary compliance is poor and they admit to eating without regard of guidelines. The patient states that weight has increased (7.4), depression has worsened, they are still having trouble sleeping and headaches are noted often but not on daily basis. Note for Multiple chronic conditions follow-up : Pt. started fluoxetine in March, but pt. did not see any improvement in depresson, so medications was changed to lexapro. Pt. started lexapro 04/21/17. Pt. noted weight gain and increased appetite on this med, so she discontinued it approximately 2 weeks ago. Pt. has been more emotional, crying and getting angry easily x 2 weeks. Has started a new job so stress is not as great as before 05-21-2017 Unclassified (3 sources) Depression (Initial) - The onset of the depression has been gradual and has been occurring in a persistent pattern for months. The course has been increasing. The depression is described as feeling sad and tired. The symptoms include loss of interest, depressed mood, fatigue, sense of failure, indecisiveness, weight gain, excessive sleeping, headaches and anxiety, while the symptoms do not include suicidal thoughts, suicidal attempts, trouble concentrating, increased appetite, loss of appetite, weight loss or insomnia. There has been no associated alcoholism, drug abuse, financial difficulties or marital problems. The depression was preceded by work stressors. There is no family history of psychiatric illness, depression in first degree relative, suicide or chemical dependency. 02-24-2017 Unclassified (3 sources) Cold Symptoms - Symptoms include ear pain (bilateral ears, has ear pressure at times), sore throat (post nasal drainage), general malaise and headache, but do not include nasal congestion, runny nose, ear fullness, hoarseness, dry cough, productive cough, wheezing, fever, chills or facial pain. The onset was sudden 2 day(s) ago. The symptoms occur constantly. The patient describes this as moderate in severity and worsening. Current treatment includes NSAIDs. Risk factors do not include smoking. The patient has not been exposed to an individual with an upper respiratory infection. Medical history includes seasonal allergies, but patient denies history of recurrent sinusitis, asthma, tonsillectomy or recurrent ear infections. Note for Upper respiratory infection : Reviewed by JPK. 10-16-2016 Unclassified (3 sources) Well Adult, female - The patient feels well with minor complaints ( extra skin vaginally - tampon gets stuck on it and the skin has to be moved in order to get tampon out - denies pain with sex or with tampon insertion), has good energy level and is sleeping well. The first day of the last menstrual period was : (03/09/16). The patient is not using any method of contraception at this time. The patient has inadequate caloric intake. The patient exercises none (rarely). The patient sleeps 9 hours per night. Note for Well Adult, female : Pt. has gotten the depo injections in the past. Pt. has not had depo for over 1 year. Pt. is interested in taking a control pill.2 weeks ago - condom cam off during sex....she took the morning after pill - did not bleed....is due to start period thursday, but is nervous...requesting test in office today 04-02-2016 Unclassified (3 sources) Eye Symptoms - The onset of the eye symptoms has been acute and has been occurring in an increasing pattern for 2 years. The course has been constant. The eye symptoms are described as moderate and involve both eyes. The symptoms are described as itching. Note for Eye symptoms : Has seasonal allergies. Usually has itchy eyes in the spring time. reviewed by [facility] 09-14-2015 Unclassified (3 sources) Cold Symptoms - Symptoms include sneezing, nasal congestion, runny nose, ear pain (right side), ear fullness, sore throat, hoarseness, dry cough, headache and facial pain, but do not include fever. The onset was sudden 3 day(s) ago. The symptoms occur constantly. The patient describes this as moderate in severity and worsening. Current treatment includes non-prescription cold medication. Medical history includes seasonal allergies. Note for Upper respiratory infection : reviewed by [facility] 03-06-2015 Unclassified (3 sources) Eye Symptoms - The onset of the eye symptoms has been sudden and has been occurring in an increasing pattern for 4 days. The course has been increasing. The eye symptoms are described as moderate and involve the right eye. The symptoms are described as pain, itching, drainage and swelling. There has been associated blurred vision, eye discharge, eye pain, itchy eyes and watery eyes. Note for Eye symptoms : When she looks in to her eye lid she can see skin. It looks like its peeling away but she cannot get ahold of it. Describes it as a white stringy look . 10-05-2014 Unclassified (3 sources) Cold Symptoms - Symptoms include sneezing, nasal congestion, runny nose, purulent discharge, ear pain (left ear pain), general malaise, headache and facial pain (left side.), but do not include sore throat, scratchy throat, dry cough, productive cough, wheezing or fever (but temp here is 99.1). The onset was gradual 3 day(s) ago. The patient describes this as worsening. The patient is not currently being treated for this problem. Risk factors include smoking (Mom smokes in the house.). Note for Upper respiratory infection : No one else at home sick. reviewed by [facility] 04-14-2014 Unclassified (3 sources) Eye symptoms - The onset of the eye symptoms has been acute and has been occurring in a persistent pattern for 4 days. The course has been worsening. The eye symptoms are described as moderate and involve the right eye. The symptoms are described as itching ( feels like something is in it ), drainage and swelling. There has been associated eye congestion, eye discharge, itchy eyes, runny nose and watery eyes. 10-14-2013 Unclassified (3 sources) Cold Symptoms - Symptoms include sneezing, runny nose, sore throat (Swollen glands on right side of neck.) and headache, but do not include fever or chills. The onset was sudden 3 day(s) ago. The symptoms occur constantly. The patient describes this as moderate in severity and unchanged. Current treatment includes allergy medications. Medical history includes seasonal allergies, but patient denies history of asthma. Note for Upper respiratory infection : reviewed by [facility] 01-12-2013 Unclassified (3 sources) Allergic rhinitis - The onset of the allergic rhinitis has been gradual and has been occurring in an increasing pattern for 2 months. The course has been gradually worsening. Associated symptoms include headache, itchy nose, runny nose and watery eyes, while there has been no associated sore throat. The symptoms are aggravated by exposure to pollens, spring season and summer season. The symptoms are relieved by nothing (Has tried OTC claritin and zyrtec but nothing seems to help.). Note for Allergic rhinitis : No allergy testing. Allergies are in the family. 10-08-2012 Unclassified (3 sources) Form Completion Physicals - The patient feels well with no complaints, has good energy level and is sleeping well. The patient exercises 3 - 4 times per week. The patient eats a variety of foods and takes no supplemental vitamins or iron and sleeps on average 9 hours per night. Note for Form completion physical : Work physical. reviewed by [facility] 08-17-2012 Unclassified (3 sources) Cold Symptoms - Symptoms include sneezing, nasal congestion, runny nose (drainage is colored), ear pain (left > right), sore throat (with coughing), dry cough (chest feels congested), fever (today) and headache. The onset was sudden 3 day(s) ago. The symptoms occur constantly. The patient describes this as moderate in severity and worsening. Current treatment includes acetaminophen (last dose was at 3:15pm). The patient has not been exposed to an individual with similar symptoms. Medical history includes recurrent sinusitis, but patient denies history of seasonal allergies, recurrent strep pharyngitis, asthma, tonsillectomy or recurrent ear infections. Note for Upper respiratory infection : No shortness of breath or wheezing. 06-24-2012 Unclassified (2 sources) Abdominal pain - The onset of the abdominal pain has been acute and has been occurring in an intermittent pattern for 4 days. The pain is described as a moderate sharp pain. The pain is located in the epigastrium and radiates to the back and suprapubic area. The symptoms are aggravated by nothing (food doesn't affect the pain) but are relieved by nothing (hasn't taken anything OTC). There has been no associated bloating, constipation, diarrhea, dysuria, nausea, vaginal bleeding or vomiting. Note for Abdominal pain : Has a good appetite. Pain is 7-8/10. Episodes of pain last for about a minute at a time. Last night they were very frequent and kept her from sleeping. 12-25-2011 Unclassified (2 sources) [ADDITIONAL REASON] Cold Symptoms - Symptoms include nasal congestion, runny nose (clear drainage) and dry cough. The onset was gradual 1 week(s) ago. The symptoms occur constantly. The patient describes this as mild and improving. The patient is not currently being treated for this problem. 12-25-2011 Unclassified (3 sources) boils - Pt saw Dr. Wolfe about 3 months ago for a boil under her arm and was put on Keflex. That seemed to resolve the problem. About a month ago she had 2 more on her right leg, they eventually popped and resolved. She noticed a week ago she has boils under each arm. They are red and inflammed, painful. No drainage, no fever.Current boils present for 1 week. No current treatment.No drainage. 09-22-2011 Unclassified (3 sources) Skin Lesion - The skin lesion appeared rapidly and has been occurring for 1 month. It has been increasing in size. The skin lesion is characterized as red and raised above the skin. Note for Skin Lesion : Several sore areas under right arm. reviewed by [facility] 07-23-2011 Unclassified (3 sources) Sore Throat - The onset of the sore throat has been sudden and has been occurring for 1 day. The course has been gradually worsening. The sore throat is described as moderate. The sore throat was precipitated by was precipitated by sinus problems. Symptoms include sore throat, headache, nasal congestion, cough and ear pain (mainly right ear.), but do not include fever. The symptoms are aggravated by swallowing. There are no relieving factors. Note for Sore Throat : reviewed by [facility] 06-13-2011 Unclassified (3 sources) Lips and mouth swollen - Raji has pt here today because yestereday afternoon she started swelling around mouth, and lips. She had sharp pain in base of neck which radiated down back. No fever. Temp today 99.3. Left eye watery today and pt says it is sore. Has not eaten anything out of ordinary that she has not had before. Did not get biten by anything that she recalls. Has not taken any Benadryl or anthing for this. reviewed by [facility] 02-24-2011 Unclassified (3 sources) Cold Symptoms - Symptoms include sneezing, nasal congestion, runny nose, ear pain (Right ear), dry cough and headache, but do not include fever. The onset was gradual 3 week(s) ago. The symptoms occur constantly. The patient describes this as moderate in severity and worsening. Current treatment includes allergy medications. Note for Cold Symptoms : reviewed by [facility] 01-07-2011 Unclassified (3 sources) Rash - The onset of the rash has been acute and has been occurring in a persistent pattern for 2 weeks. The course has been constant. The rash is characterized as red and raised above the skin (no blisters). The rash was first seen on the trunk. It spread to the back. There has been associated itching. There has been no associated fever. Note for Rash : only on her left side, no new skin products/soaps/detergent s 06-21-2010 Unclassified (1 source) Cold Symptoms - Symptoms include nasal congestion, runny nose (clear drainage) and dry cough. The onset was gradual 1 week(s) ago. The symptoms occur constantly. The patient describes this as mild and improving. The patient is not currently being treated for this problem. 12-25-2011 Unclassified (1 source) [ADDITIONAL REASON] Abdominal pain - The onset of the abdominal pain has been acute and has been occurring in an intermittent pattern for 4 days. The pain is described as a moderate sharp pain. The pain is located in the epigastrium and radiates to the back and suprapubic area. The symptoms are aggravated by nothing (food doesn't affect the pain) but are relieved by nothing (hasn't taken anything OTC). There has been no associated bloating, constipation, diarrhea, dysuria, nausea, vaginal bleeding or vomiting. Note for Abdominal pain : Has a good appetite. Pain is 7-8/10. Episodes of pain last for about a minute at a time. Last night they were very frequent and kept her from sleeping. 12-25-2011 Results Test Name Value Interpretation Reference Range Facil ity Vital Signs Date Time Vital Sign Value Performing Clinician Faci lity 04-27-2023 10:53-0500 Body height 160.02 cm Mary Haji MA [facility], [facility].; [employer]. 04-27-2023 10:53-0500 Body mass index (BMI) [Ratio] 50 kg/m2 Mary Haji [facility] [employer] [facility] [facility], [employer]. 04-27-2023 10:53-0500 Body surface area Derived from formula 2.24 m2 Mary Haji MA [employer] [facility] [employer] [facility].; [employer] 04-27-2023 10:53-0500 Body weight 128.03 kg Mary Haji [facility] [employer] [facility] [employer].; [employer] 04-27-2023 10:53-0500 Diastolic blood pressure 84 mm[Hg] Mary Haji MA [employer] [facility] [employer] Encounters Encounter Date Encounter Type Care Provider Facility Start: 05-20-2023 End: 05-20-2023 Orders Crystal Uptain CNM Work Phone: [employer] [facility]. Start: 05-13-2023 End: 05-13-2023 Orders Crystal Uptain CNM Work Phone: [email or web address] [facility]. Start: 04-27-2023 End: 04-27-2023 Office outpatient visit 25 minutes Crystal Uptain CNM Work Phone: [employer]. Start: 11-19-2022 End: 11-19-2022 ambulatory PHOEBE Shahriar [facility] Start: 11-19-2022 End: 11-19-2022 Encounter for general adult medical examination without abnormal findings PHOEBE HOLLEY [facility] Start: 02-28-2022 End: 02-28-2022 ambulatory ARTURO MOON [facility] Start: 11-21-2020 End: 11-21-2020 Patient encounter procedure Crystal Uptain CNM Work Phone: [employer] Start: 01-17-2020 End: 01-17-2020 Medication Crystal Uptain CNM Work Phone: [employer]. Start: 08-09-2019 End: 08-09-2019 Orders Crystal Uptain CNM Work Phone: [employer] Start: 08-01-2019 End: 08-01-2019 Office outpatient visit 10 minutes Crystal Uptain CNM Work Phone: [employer] Start: 06-23-2019 End: 06-23-2019 Office outpatient visit 15 minutes Crystal Uptain CNM Work Phone: [employer] Start: 05-23-2019 End: 05-23-2019 Office outpatient visit 15 minutes Crystal Uptain CNM Work Phone: [employer] Start: 02-14-2019 End: 02-14-2019 Office outpatient visit 10 minutes Crystal Uptain CNM Work Phone: [employer] Start: 01-13-2019 End: 01-13-2019 Office outpatient visit 25 minutes Crystal Uptain CNM Work Phone: [employer] Start: 2018 End: 2018 Office outpatient visit 25 minutes Crystal Uptain CNM Work Phone: [employer] Start: 09-07-2018 End: 09-07-2018 Patient encounter procedure Crystal Uptain CNM Work Phone: [employer] Start: 09-02-2018 End: 09-02-2018 Office outpatient visit 15 minutes Crystal Uptain CNM Work Phone: [employer] Start: 06-30-2018 End: 06-30-2018 Office outpatient visit 15 minutes Crystal Uptain CNM Work Phone: [employer] Start: 05-13-2018 End: 05-13-2018 Telephone follow-up Crystal Uptain CNM Work Phone: [employer]. Start: 05-06-2018 Patient encounter procedure MALLORY Ferreira JEFF [facility] Start: 04-29-2018 End: 04-29-2018 Patient encounter [facility] Start: 04-22-2018 Patient encounter procedure RED WOLFE [facility] Start: 04-14-2018 End: 04-14-2018 Patient encounter procedure LUCINDA Shahriar RUSSELLPOLLACK [facility] Start: 04-05-2018 End: 04-05-2018 Patient encounter procedure HAZLEHURST Yariel [facility] Start: 03-08-2018 Patient encounter procedure SERGIO J [facility] Start: 02-11-2018 End: 02-11-2018 Patient encounter procedure SERGIO J [facility] Start: 01-28-2018 End: 01-28-2018 Patient encounter procedure ESTELLA YUN [facility] Start: 01-11-2018 Patient encounter procedure HAZLEHURST Yariel [facility] Start: 08-04-2017 End: 08-04-2017 Patient encounter procedure Crystal Uptain CNM Work Phone: [employer] Start: 06-24-2017 End: 06-24-2017 Office outpatient visit 10 minutes Crystal Uptain CNM Work Phone: [employer] Start: 06-18-2017 End: 06-18-2017 Office outpatient visit 15 minutes Crystal Uptain CNM Work Phone: [employer] Start: 05-21-2017 End: 05-21-2017 Office outpatient visit 15 minutes Crystal Uptain CNM Work Phone: [employer] Start: 04-21-2017 End: 04-21-2017 Medication Crystal Uptain CNM Work Phone: [employer] Start: 03-25-2017 End: 03-25-2017 Patient encounter procedure Crystal Uptain CNM Work Phone: [employer] Start: 02-26-2017 End: 02-26-2017 Medication Crystal Uptain CNM Work Phone: [employer] Start: 02-24-2017 End: 02-24-2017 Patient encounter procedure Crystal Uptain CNM Work Phone: [employer] Start: 10-16-2016 End: 10-16-2016 Office outpatient visit 15 minutes Crystal Uptain CNM Work Phone: [employer] Start: 07-14-2016 End: 07-14-2016 Patient encounter procedure Crystal Uptain CNM Work Phone: [employer] Start: 04-09-2016 End: 04-09-2016 Orders Crystal Uptain CNM Work Phone: [employer] Start: 04-09-2016 End: 04-09-2016 Medication Crystal Uptain CNM Work Phone: [employer] Start: 04-02-2016 End: 04-02-2016 Patient encounter procedure Crystal Uptain CNM Work Phone: [employer] Start: 12-03-2015 End: 12-03-2015 Nursing evaluation of patient and report Crystal Uptain CNM Work Phone: [employer] Start: 11-26-2015 End: 11-26-2015 Orders Crystal Uptain CNM Work Phone: [employer] Start: 09-14-2015 End: 09-14-2015 Office outpatient visit 15 minutes Crystal Uptain CNM Work Phone: [employer] Start: 03-06-2015 End: 03-06-2015 Office outpatient visit 15 minutes Crystal Uptain CNM Work Phone: [employer] Start: 10-05-2014 End: 10-05-2014 Office outpatient visit 15 minutes Crystal Uptain CNM Work Phone: [employer] Start: 04-14-2014 End: 04-14-2014 Patient encounter procedure Crystal Uptain CNM Work Phone: [employer] Start: 03-13-2014 End: 03-13-2014 Nursing evaluation of patient and report Crystal Uptain CNM Work Phone: [employer] Start: 10-14-2013 End: 10-14-2013 Patient encounter procedure Crystal Uptain CNM Work Phone: [employer] Start: 01-12-2013 End: 01-12-2013 Patient encounter procedure Crystal Uptain CNM Work Phone: [employer] Start: 10-08-2012 End: 10-08-2012 Patient encounter procedure Crystal Uptain CNM Work Phone: [employer] Start: 08-17-2012 End: 08-17-2012 Patient encounter procedure Crystal Uptain CNM Work Phone: [employer] Start: 08-17-2012 End: 08-17-2012 Routine general medical examination at a [facility] facility Jame Wolfe MD Work Phone: [employer]; [employer] Start: 06-24-2012 End: 06-24-2012 Patient encounter procedure Crystal Uptain CNM Work Phone: [employer] Start: 12-25-2011 End: 12-25-2011 Patient encounter procedure Crystal Uptain CNM Work Phone: [employer] Start: 09-22-2011 End: 09-22-2011 Patient encounter procedure Crystal Uptain CNM Work Phone: [employer] Start: 07-23-2011 End: 07-23-2011 Patient encounter procedure Crystal Uptain CNM Work Phone: [facility] Start: 06-13-2011 End: 06-13-2011 Patient encounter procedure Crystal Uptain CNM Work Phone: [facility] Start: 02-24-2011 End: 02-24-2011 Patient encounter procedure Crystal Uptain CNM Work Phone: [facility] Start: 01-07-2011 End: 01-07-2011 Patient encounter procedure Crystal Uptain CNM Work Phone: [facility] Start: 06-21-2010 End: 06-21-2010 Patient encounter procedure Crystal Uptain CNM Work Phone: [facility] Patient encounter procedure Mary Haji MA [facility]; [facility] Patient encounter procedure Arturo GILES-C Work Phone: [facility]; [facility] Procedures Date Procedure Procedure Detail Performing Clinician Start: 02-18-2023 End: 02-18-2023 Microscopic examination of cervical Papanicolaou smear Mary Haji MA Start: 11-21-2020 End: 11-21-2020 Depression screening Arturo CurryC Work Phone: Start: 11-21-2020 End: 11-21-2020 Scr dep neg, no plan reqd Arturo GILES-C Work Phone: Start: 2018 End: 11-30-2020 Polysom 6/>yrs sleep 4/> addl anne marie attnd Arturo GILES-C Work Phone: Start: 09-02-2018 End: 09-07-2018 Us abdominal real time w/image limited Arturo GILES-C Work Phone: Start: 04-20-2018 End: 04-20-2018 Operation on gallbladder Mary Haji MA Start: 08-04-2017 End: 08-12-2017 Us breast uni real time with image complete Arturo Moon PA-C Work Phone: Start: 08-04-2017 End: 08-04-2017 Body mass index documented Arturo D Hi lls PA-C Work Phone: Start: 06-24-2017 End: 06-24-2017 Body mass index documented Arturo D Hi lls PA-C Work Phone: Start: 06-18-2017 End: 06-18-2017 Body mass index documented Arturo D Hi lls PA-C Work Phone: Start: 05-21-2017 End: 05-21-2017 Body mass index documented Arturo D Hi lls PA-C Work Phone: Start: 03-25-2017 End: 03-25-2017 Body mass index documented Arturo D Hi lls PA-C Work Phone: Start: 02-24-2017 End: 02-24-2017 Body mass index documented Arturo D Hi lls PA-C Work Phone: Start: 02-24-2017 End: 02-24-2017 Flu imm no admin doc nestor Arturo Guerrero s PA-C Work Phone: Section - 2 Mary Haji MA Plan of Treatment Date Care Activity Detail Author Start: 08-24-2023 Patient encounter procedure Medical; EXTENDED RTN - 4 mo f/u [facility], [facility]. Start: 24-Aug-2023 10:00 ARAVIND Cedillo Appointment Request [facility], [facility]. Immunizations Immunization Date Immunization Notes Care Provider Stephen cho 03-13-2014 tetanus toxoid, redu alejandro diphtheria toxoid, and acellular pertussis vaccine, adsorbed Colleen Cedillo CNM Work Phone: [facility], [employer].; [facility], [facility] Payers Date Payer Category Payer Unknown [id number] 1996 Unknown [id number] 2.16.8 [id number] 1996 Unknown [id number] 2.16.8 [id number] 1996 Unknown [id number] 2.16.8 [id number]. 1996 Unknown [id number] 2.16.8 [id number]. 1996 Unknown [id number] 2.16.8 [id number]. 1996 Unknown [id number] 2.16.8 [id number]. 1996 Unknown [id number] 2.16.8 [id number]. 1996 Unknown [id number] 2.16.8 [id number]. 1996 Unknown [id number] 2.16.8 [id number]. 1996 Unknown [id number] 2.16.8 [id number]. 1996 Unknown [id number] 2.16.8 [id number]. 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 Tobacco Use: Tobacco Use: ; Never smoker. [employer] Tobacco/Smoke Exposure: Tobacco/ Smoke Exposure: ; Family members smoke indoors. [employer], [employer].; [employer] Female [employer]. Work Phone: Family members smoke indoors [employer] Work Phone: Never smoked tobacco [facility] [employer]; [employer] Work Phone: Summary Purpose Family History Breast Cancer Status:Active Comments:Sister. Cancer Status:Active Comments:throat cancer -grandfatherkidney cancer-grandmother Diabetes Mellitus Type II Status:Active Commen ts:Father. Hypertension Status:Active Comments:Father. Hypothyroidism Status:Active Comments:Materna l Grandmother. Osteoarthritis Status:Active Comments:Father. Breast Cancer Status:Active Comments:Sister. Cancer Status:Active Comments:throat cancer -grandfatherkidney cancer-grandmother Diabetes Mellitus Type II Status:Active Commen ts:Father. Hypertension Status:Active Comments:Father. Hypothyroidism Status:Active Comments:Materna l Grandmother. Osteoarthritis Status:Active Comments:Father. Breast Cancer Status:Active Comments:Sister. Cancer Status:Active Comments:throat cancer -grandfatherkidney cancer-grandmother Diabetes Mellitus Type II Status:Active Commen ts:Father. Hypertension Status:Active Comments:Father. Hypothyroidism Status:Active Comments:Materna l Grandmother. Osteoarthritis Status:Active Comments:Father. Advance Directives No Advanced Directives Records FoundNo Advanced Directives Records FoundNo Advanced Directives Records FoundNo Advanced Directives Records Found Additional Source Comments INFORMATION SOURCE (unrecogn ized section and content) DATE CREATED AUTHOR AUTHOR'S ORGANIZ ATION 10/20/2018 [facility] ([place]) DATE CREATED AUTHOR AUTHOR'S ORGANIZ ATION 03/26/2021 [facility] DATE CREATED AUTHOR AUTHOR'S ORGANIZ ATION 11/22/2022 [facility] FOR RECORDS PERTAINING TO PATIENTS WHO ARE OR HAVE BEEN ENROLLED IN A CHEMICAL DEPENDENCY/SUBSTANCEABUSE PROGRAM, SOME INFORMATION MAY BE OMITTED. This clinical summary was aggregated from multiple sources. Caution should be exercised in using it in the provision of clinical care. This summary normalizes information from multiple sources, and as a consequence, information in this document may materially change the coding, format and clinical context of patient data. In addition, data may be omitted in some cases. CLINICAL DECISIONS SHOULD BE BASED ON THE PRIMARY CLINICAL RECORDS. [employer] [facility]. provides no warranty or guarantee of the accuracy or completeness of information in this document.
[2023-06-06 07:09] LABS: Chlamydia By Nucleic Acid AMP Negative (Negative); Gonococcus By Nucleic Acid AMP Negative (Negative)
== END | disposition home or self-care (01) ==
LOC: LABSPEC 16:14
PROVIDERS: PCP Family Medicine; Referring Provider Nurse Practitioner Women's Health; Visit Provider Nurse Practitioner Women's Health
DX: N89.8 Other specified noninflammatory disorders of vagina (principal)
CPT/HCPCS: 87070; 87205; 87491; 87591

== ENCOUNTER → 2024-07-29 | Outpatient (CLI) | payer OTHER, SELFPAY ==
[2024-07-29 16:59] LABS: Absolute Lymphocyte Count 1.78 X10^3/uL (0.83-4.51); Absolute Neutrophil Count 6.4 X10^3/uL (2.0-7.7); Basophil# 0.02 X10^3/uL; Basophil% 0.2 % (0-1); Eosinophil# 0.06 X10^3/uL; Eosinophils% 0.7 % (0-5); Hematocrit 39.7 % (37-47); Hemoglobin 13.8 g/dL (12.0-15.0); Lymphocyte # 1.78 X10^3/ul (0.83-4.51); Mean Corp Hgb Conc 34.8 g/dL (32-36); Mean Corpuscular Volume 92.1 fL (81-99); Mean Platelet Vol. 12.2 fl (6.2-12.0); Monocyte% 6.7 % (0-10); NRBC Flagged by Analyzer 0 % (0-5); Neutrophil # 6.39 X10^3/uL (2.7-7.7); Neutrophil % 71.7 % (47-70); Platelet Count 214 K/mm3 (150-450); RBC Distribution Width CV 11.9 % (11.6-14.6); RBC Distribution Width SD 40.1 fl (35.1-43.9); Red Blood Count 4.31 M/mm3 (4.2-5.4); White Blood Count 8.9 K/mm3 (4.4-11.0)
[2024-07-29 17:31] LABS: HIV Nonreactive (Nonreactive); Hepatitis B Surface Antigen Nonreactive (Nonreactive); Hepatitis C Antibody Nonreactive (Nonreactive); Rubella IgG REAC (Nonreactive); Syphilis Antibodies Nonreactive (Nonreactive)
[2024-07-29 17:36] LABS: Hemoglobin A1c 4.9 % (<=5.6)
[2024-08-01 21:07] LABS: Chlamydia By Nucleic Acid AMP Negative (Negative); Gonococcus By Nucleic Acid AMP Negative (Negative)
== END | disposition home or self-care (01) ==
PROVIDERS: PCP Family Medicine; Referring Provider Registered Nurse; Visit Provider Registered Nurse
DX: O09.90 Supervision of high risk pregnancy, unspecified, unspecified trimester (principal); Z3A.00 Weeks of gestation of pregnancy not specified
CPT/HCPCS: 36415; 83036; 85025; 86703; 86762; 86780; 86803; 86850; 86900; 86901; 87086; 87088; 87340; 87491; 87591

== ENCOUNTER → 2024-08-05 | Outpatient (CLI) | payer OTHER, SELFPAY | END | disposition home or self-care (01) | LOC: LABSPEC 15:10 | PROVIDERS: PCP Family Medicine; Referring Provider Advanced Practice Midwife; Visit Provider Advanced Practice Midwife | DX: R30.0 Dysuria (principal) | CPT/HCPCS: 87086; 87088 ==

== ENCOUNTER → 2024-12-06 | Outpatient (CLI) | payer OTHER, MEDICAID, SELFPAY ==
[2024-12-06 15:54] LABS: Hematocrit 36.2 % (37-47); Hemoglobin 12.5 g/dL (12.0-15.0); Immature Granulocytes Count 0.120 X10^3/uL (0.0-0.0); Mean Corp Hgb Conc 34.5 g/dL (32-36); Mean Corpuscular Volume 92.1 fL (81-99); Mean Platelet Vol. 12.1 fl (6.2-12.0); NRBC Flagged by Analyzer 0 % (0-5); Platelet Count 205 K/mm3 (150-450); RBC Distribution Width CV 12.3 % (11.6-14.6); RBC Distribution Width SD 41.9 fl (35.1-43.9); Red Blood Count 3.93 M/mm3 (4.2-5.4); White Blood Count 9.6 K/mm3 (4.4-11.0)
[2024-12-06 17:08] LABS: HIV Nonreactive (Nonreactive); Syphilis Antibodies Nonreactive (Nonreactive)
[2024-12-06 17:10] LABS: Glucose Challenge Gest 1H 50g 167 mg/dL (70-140)
== END | disposition home or self-care (01) ==
LOC: LAB 15:01
PROVIDERS: PCP Family Medicine; Referring Provider Nurse Practitioner Women's Health; Visit Provider Nurse Practitioner Women's Health
DX: O09.92 Supervision of high risk pregnancy, unspecified, second trimester (principal); Z3A.00 Weeks of gestation of pregnancy not specified; Z13.1 Encounter for screening for diabetes mellitus
CPT/HCPCS: 36415; 82950; 85025; 86703; 86780

== ENCOUNTER → 2024-12-13 | Outpatient (CLI) | payer OTHER, MEDICAID, SELFPAY ==
--- OUTSIDE RECORDS SUMMARY | 2024-12-13 06:57 | XMS RPT_ITS | CCD ---
Author Organization [facility] Care Team Providers Care Filler Machine Operator Name Role Phone SHARAN JEFFREY Attending Unavailable AMEE SCHAFFER Referring Unavailabl e NO PRIMARY CARE, Primary Care Unavailable SHARAN JEFFREY Attending Unavailable AMEE SCHAFFER Referring Unavailabl e NO PRIMARY CARE, Primary Care Unavailable PORSHA YUN Attending Unavailable AMEE SCHAFFER Referring Unavailabl e NO PRIMARY CARE, Primary Care Unavailable SHARAN JEFFREY Attending Unavailable AMEE SCHAFFER Referring Unavailabl e NO PRIMARY CARE, Primary Care Unavailable SHARAN JEFFREY Attending Unavailable AMEE SCHAFFER Referring Unavailabl e HILLS, LOUISE D Primary Care Unavailable SHARAN JEFFREY Attending Unavailable AMEE SCHAFFER Referring Unavailabl e HILLS, LOUISE D Primary Care Unavailable MALLORY AGUILAR Attending Unavailable AMEE SCHAFFER Referring Unavailabl e HILLS, LOUISE D Primary Care Unavailable WANDER POLLACK Attending Unavailable HILLS, LOUISE D Referring Unavailable HILLS, LOUISE D Primary Care Unavailable RED ALBERTO Attending Unavailable AMEE SCHAFFER Referring Unavailabl e HILLS, LOUISE D Primary Care Unavailable NATHAN RODRIGUEZ Attending AMEE Mg Referring Unavailabl e HILLS, LOUISE D Primary Care Unavailable MALLORY AGUILAR Attending Unavailable AMEE SCHAFFER Referring Unavailabl e HILLS, LOUISE D Primary Care Unavailable ERIK Hooper Primary Care Provider ERIK Hooper Referring Provider [phone] ARAVIND So Attending Provider Colleen Cedillo CNM Unavailable [phone] Broderick endoscopy support specialist, . . Unavailable General Surgery Provider Unavailable Unavail able Bandar PUENTES, Kristin Swan Unavailable Aiden PUENTES, Jame Kaur Unavailable Isrrael PUENTES, Mervin Gonzalez Unavailable Sarai CHANEYC, Louise Marcelo Unavailable [phone] Vess AZURE DEVELOPER, Jerry L Unavailable Unavailable Arnulfo AZURE DEVELOPER, Leny E Unavailable Unavailable Félix EPPS, Brooke Thomas Unavailable Unavailable Nathan AZURE DEVELOPER, Zeinab Che Unavailable Unavailab nena Siddiqui AZURE DEVELOPER, Mallory Unavailable Unavailabl franklyn Be PA-C, Porsha Saldivar Unavailable Alexsandra AZURE DEVELOPER, Yolande K Unavailable Unamiya Tboar NP-C, Skinny Richards Unavailable Franko AZURE DEVELOPER, Veronica Unavailable Unavailable Adithya SCHMIDT, Mary Unavailable Unavailable Unavailable Unavailable Unavailable Unavailable Shyla SEATING CAPTAIN, SEATING CAPTAIN-C Bessie Attending Provider Spenser TAMEZN, Aracelis Unavailable Unavailable Adriana EPPS, Ren Unavailable Unavailable Louise Moon PA-C Primary Care Provider Louise Moon PA-C Referring Provider Ross CORTEZ-CLeeann Attending Provider Hannah Mercado RN Attending Provider UnavailNing Jj CNM Attending Provider Jenny So CNM Attending Provider Jenny So CNM Referring Provider Ning Oquendo CNM Referring Provider Manuel PUENTES, Dr. Lubin Attending Provider Louise Moon PA-C Primary Care Provider Louise Moon PA-C Referring Provider Shyla CORTEZ-CBessie Attending Provider AMEE SCHAFFER MD Admitting Unavailab AMEE Bravo MD Primary Care Unavailab AMEE Bravo MD Attending Unavailab [facility], LOUISE PAC Consulting Unavailable PROVIDER, UNKNOWN Consulting Unavailable JAZMYN HO DO Admitting Unavailable JAZMYN HO DO Primary Care Unavailable JAZMYN HO DO Attending Unavailable STURGEON, LOUISE PAC Consulting Unavailable PROVIDER, UNKNOWN Consulting Unavailable STURGEON, LOUISE Admitting Unavailable STURGEON, LOUISE Primary Care Unavailable STURGEON, LOUISE Attending Unavailable STURGEON, LOUISE PAC Consulting Unavailable PROVIDER, UNKNOWN Consulting Unavailable Winslow PA-C, Louise Primary Care Provider Winslow PA-C, Louise Primary Care Provider Winslow PA-C, Louise Referring Provider [phone] Ning Oquendo CNM Attending Provider Shyla SEATING CAPTAIN-C, Bessie Referring Provider [phone] Winslow PA, Louise Primary Care Unavailable Winslow PA, Louise Referring Unavailable Ning Oquendo Attending Unavailable Winslow PA, Louise Referring Unavailable Winslow PA, Louise Primary Care Unavailable Jenny So Attending Unavailable Winslow PA, Louise Referring Unavailable Winslow PA, Louise Primary Care Unavailable Ning Oquendo Attending Unavailable Winslow PA, Louise Referring Unavailable Winslow PA, Louise Primary Care Unavailable Amee Schaffer Attending Unavailable Winslow PA, Louise Referring Unavailable Winslow PA, Louise Primary Care Unavailable Ning Oquendo Attending Unavailable Winslow PA, Louise Primary Care Unavailable Shyla SEATING CAPTAINBessie Attending Unavailable Shyla SEATING CAPTAINBessie Referring Unavailable Winslow PA, Louise Primary Care Unavailable Jenny So Attending Unavailable Jenny So Referring Unavailable Winslow PA, Louise Primary Care Unavailable Ning Oquendo Attending Unavailable Ning Oquendo Referring Unavailable Winslow PA, Louise Primary Care Unavailable Hannah Mercado Attending Unavailable Winslow PA, Louise Primary Care Unavailable Shyla SEATING CAPTAINBessie Attending Unavailable Winslow PA, Louise Referring Unavailable Winslow PA, Louise Referring Unavailable Winslow PA, Louise Primary Care Unavailable Shyla SEATING CAPTAINBessie Attending Unavailable Winslow PA, Louise Referring Unavailable Winslow PA, Louise Primary Care Unavailable Shyla SEATING CAPTAINBessie Attending Unavailable Winslow PA, Louise Primary Care Unavailable Winslow PA, Louise Referring Unavailable Leeann Hawkins Attending Unavailable Allergies Allergy Classification Reported Allergen(s) Allergy Type Date of Onset Reaction(s) Facility (12 sources) Penicillins; Translations: [PENICILLINS] Propensity to adverse reactions to drug (disorder) 8 Rash [facility] Repository (18 sources) Penicillin V Drug Allergy [facility], [facility]. Medications Current Medications Medication Drug Class(es) Dates Sig (Normalized) Sig (Original) docosahexaenoic acid 200 mg oral capsule (7 sources) Start: 5 Docosahexaenoic Acid ( Dha) 200 mg capsule Active mg PO July 08, 2024 12:00am methylPREDNISolone 4 mg oral tablet (3 sources) Corticosteroid Start: 5 take 1 tablet by mouth once Methylprednisolone (Medrol (Melissa)) 4 mg tablets,dose pack Active 0 PO per package directions November 15, 2024 12:00am PO PER PKG DIR ondansetron 4 mg disintegrating oral tablet (5 sources) Serotonin-3 Receptor Antagonist Start: 5 take 1 tablet by mouth every six hours as needed for nausea and vomiting Ondansetron 4 mg tablet,disintegrating Active 4 mg PO EVERY 6 HOURS as needed for nausea and vomiting 17 08September 07, 2024 12:00am Nausea and vomiting during Vomiting of , unspecified semaglutide (weight loss) 0.25 mg/0.5 mL subcutaneous pen injector (16 sources) Start: 4 semaglutide (weight loss) 0.25 mg/0.5 mL subcutaneous pen injector ; 40 Unit weekly for 0 days Quantity: 2.5 {Milliliter} Refills: 0 Ordered: 14-Mar-2024 ARAVIND Cedillo Start: 14-Mar-2024 Comments: Substitute: Semaglutide/Cyanocoba katie 5mg/0.5mg per mL- send a 2.5mL vial Start: 01-27-2024 inject 20 [IU] by subcutaneous injection every week semaglutide (weight loss) 0.25 mg/0.5 mL subcutaneous pen injector ; 20 Unit weekly for 0 days Quantity: 2.5 {Milliliter} Refills: 0 Ordered: 27-Jan-2024 ARAVIND Cedillo Start: 27-Jan-2024 Comments: Substitute: Semaglutide/Cyanocobalamin 5mg/0.5mg per mL- send a 2.5mL vial Start: 09-09-2023 inject 0.75 mg by subcutaneous injection every week semaglutide (weight loss) 0.25 mg/0.5 mL subcutaneous pen injector ; 0.75 Milligram weekly for 0 days Quantity: 1 {Milliliter} Refills: 0 Ordered: 09-Sep-2023 ARAVIND Cedillo Start: 09-Sep-2023 Comments: Substitute: Semaglutide/Cyanocobalamin 5mg/0.5mg per mL- send a 1mL vial Start: 08-11-2023 inject 0.5 mL by subcutaneous injection every week semaglutide (weight loss) 0.25 mg/0.5 mL subcutaneous pen injector ; 0.5 Milliliter weekly for 0 days Quantity: 2.5 {Milliliter} Refills: 0 Ordered: 11-Aug-2023 TAMARA Dueñas Start: 11-Aug-2023 Comments: Substitute: Semaglutide/Cyanocobalamin 1mg/0.5mg per mL Start: 08-11-2023 inject 0.5 mL by subcutaneous injection every week semaglutide (weight loss) 0.25 mg/0.5 mL subcutaneous pen injector ; 0.5 Milliliter weekly for 0 days Quantity: 2.5 {Milliliter} Refills: 0 Ordered: 11-Aug-2023 ARAVIND Cedillo Start: 11-Aug-2023 Comments: Substitute: Semaglutide/Cyanocobalamin 1mg/0.5mg per mL Start: 08-03-2023 inject 0.5 mL by subcutaneous injection every week semaglutide (weight loss) 0.25 mg/0.5 mL subcutaneous pen injector ; 0.5 Milliliter weekly for 0 days Quantity: 2.5 {Milliliter} Refills: 0 Ordered: 03-Aug-2023 ARAVIND Cedillo Start: 03-Aug-2023 Comments: Substitute: Semaglutide/Cyanocobalamin 1mg/0.5mg per mLIncrease in dose, increased vial size Start: 06-05-2023 inject 0.5 mL by subcutaneous injection every week semaglutide (weight loss) 0.25 mg/0.5 mL subcutaneous pen injector ; 0.5 Milliliter weekly for 0 days Quantity: 2.5 {Milliliter} Refills: 0 Ordered: 05-Jun-2023 ARAVIND Cedillo Start: 05-Jun-2023 Comments: Substitute: Semaglutide/Cyanocobalamin 1mg/0.5mg per mLIncrease in dose, increased vial size Start: 05-20-2023 inject 0.25 mL by subcutaneous injection every week semaglutide (weight loss) 0.25 mg/0.5 mL subcutaneous pen injector ; 0.25 mL weekly for 0 days Quantity: 1 {Milliliter} Refills: 0 Ordered: 20-May-2023 ARAVIND Cedillo Start: 20-May-2023 Comments: Substitute: Semaglutide/Cyanocobalamin 1mg/0.5mg per mL Comment on above: Substitute: Semaglut anshul/Cyanocobalamin 1mg/0.5mg per mL Substitute: Semaglut anshul/Cyanocobalamin 1mg/0.5mg per mLIncrease in dose, increased vial size Substitute: Semaglut anshul/Cyanocobalamin 5mg/0.5mg per mL- send a 1mL vial Substitute: Semaglut anshul/Cyanocobalamin 5mg/0.5mg per mL- send a 2.5mL vial Completed/Discontinued Medications Medication Drug Class(es) Dates Sig (Normalized) Sig (Original) acetaminophen 325 mg / oxyCODONE hydrochloride 5 mg oral tablet (10 sources) Opioid Agonist Start: 05-12-2018 End: 05-19-2018 Oxycodone-Acetaminoph en 1 TABLET tablet Discontinued 1 - 2 {tbl} PO EVERY 4 HOURS NEEDED as needed for Pain May 12, 2018 1:00am May 18, 2018 1:00am May 19, 2018 1:07am Other acute postprocedural pain Start: 05-12-2018 End: 05-19-2018 take 1 tablet by mouth every four hours as needed Oxycodone-Acetaminophen Discontinued 1 - 2 TABLET PO EVERY 4 HOURS NEEDED 14 11May 12, 2018 12:00am May 19, 2018 12:07am azithromycin 500 mg oral tablet (20 sources) Macrolide Antimicrobial Start: 04-09-2016 End: 07-10-2016 Zithromax 500 MG Oral Tablet ; 2 (two) Tablet NOW for 0 days Quantity: 2 {Tablet} Refills: 0 Ordered: 10-Jul-2016 MICH Haerd Brooke Tay Start: 09-Apr-2016 End: 10-Jul-2016 Status: Inactive Start: 06-24-2012 End: 10-08-2012 ZITHROMAX Z-MELISSA, 250MG (Oral Tablet) ; 2 (two) Tabs day one, then one daily for 4 days for 0 days Quantity: 1 {Z-pack} Refills: 0 Ordered: 08-Oct-2012 TAMARA Arredondo Start: 24-Jun-2012 End: 08-Oct-2012 Status: Inactive betamethasone 0.5 mg/ml / clotrimazole 10 mg/ml topical cream (18 sources) Azole Antifungal, Corticosteroid Start: 08-09-2019 End: 11-21-2020 Clotrimazole-Betamethasone 1-0.05 % External Cream ; apply cream twice daily to affected area for 0 days Quantity: 45 {Gram} Refills: 0 Ordered: 21-Nov-2020 TAMARA Abdul Start: 09-Aug-2019 End: 21-Nov-2020 Status: Inactive 24 hr buPROPion hydrochloride 300 mg extended release oral tablet (20 sources) Aminoketone Start: 01-13-2019 End: 01-17-2019 take 1 tablet by mouth once daily buPROPion HCl ER (XL) 150 MG Oral Tablet Extended Release 24 Hour ; 1 (one) Tablet ER 24HR daily for 4 days Quantity: 4 {Tablet} Refills: 0 Ordered: 13-Jan-2019 ERIK Moon Start: 13-Jan-2019 End: 17-Jan-2019 Status: Inactive Comments: use 2nd (after venlafaxine taper) Start: 08-03-2018 End: 06-08-2024 take 1 tablet by mouth once daily in the morning Bupropion Hcl (Wellbutrin Xl) 300 mg tablet extended release 24 hr Discontinued 300 mg PO EVERY MORNING 30 April 27, 2023 2:36pm June 08, 2024 9:57am Comment on above: use 2nd (after venla faxine taper) cephalexin 500 mg oral capsule (20 sources) Cephalosporin Antibacterial Start: 0 End: 0 take 1 capsule by mouth three times daily Cephalexin 500 MG Oral Capsule ; 1 Capsule three times daily for 10 days Quantity: 30 {Capsule} Refills: 0 Ordered: 09-Aug-2019 ERIK Moon Start: 09-Aug-2019 End: 19-Aug-2019 Status: Inactive Start: 10-16-2016 End: 10-26-2016 take 1 capsule by mouth three times daily Cephalexin 500 MG Oral Capsule ; 1 Capsule three times daily for 10 days Quantity: 30 {Capsule} Refills: 0 Ordered: 16-Oct-2016 GAVIN Tobar Start: 16-Oct-2016 End: 26-Oct-2016 Status: Inactive chlorhexidine gluconate 40 mg/ml medicated liquid soap (18 sources) Start: 09-22-2011 End: 10-14-2013 HIBICLENS, 4% (External Liquid) ; wash with soap daily for 0 days Quantity: 420 {Milliliter} Refills: 1 Ordered: 14-Oct-2013 Start: 22-Sep-2011 End: 14-Oct-2013 Status: Inactive ciprofloxacin 250 mg oral tablet (18 sources) Quinolone Antimicrobial Start: 06-24-2017 End: 06-27-2017 take 1 tablet by mouth twice daily Ciprofloxacin HCl 250 MG Oral Tablet ; 1 Tablet two times daily for 3 days Quantity: 6 {Tablet} Refills: 0 Ordered: 24-Jun-2017 ERIK Moon Start: 24-Jun-2017 End: 27-Jun-2017 Status: Inactive citalopram 20 mg oral tablet (10 sources) Serotonin Reuptake Inhibitor Start: 12-31-2017 End: 01-20-2018 take 1 tablet by mouth once daily Citalopram (Celexa) 20 mg tablet Discontinued 20 mg PO DAILY 18 04December 31, 2017 12:00am January 20, 2018 9:12am escitalopram 20 mg oral tablet (18 sources) Serotonin Reuptake Inhibitor Start: 04-21-2017 End: 05-21-2017 take 1 tablet by mouth once daily Escitalopram Oxalate 20 MG Oral Tablet ; 1 (one) Tablet daily for 0 days Quantity: 30 {Tablet} Refills: 0 Ordered: 21-May-2017 ERIK Moon Start: 21-Apr-2017 End: 21-May-2017 Status: Inactive Norethindrone-E.Est radiol-Iron (20 sources) Estrogen Start: 06-03-2023 End: 06-08-2024 take 1 tablet by mouth once daily Norethindrone-E.Est radiol-Iron (Blisovi 24 Fe) 1 mg-20 mcg (24)/75 mg (4) tablet Discontinued [address] [id number] 3 June 03, 2023 3:59pm June 08, 2024 9:57am TAKE 1 TABLET BY MOUTH EVERY DAY Start: 06-03-2023 End: 06-08-2024 take 1 tablet by mouth once daily Norethindrone-E.Estradiol-Iron (Blisovi 24 Fe) 1 mg-20 mcg (24)/75 mg (4) tablet Discontinued [address] [address] June 03, 2023 3:59pm June 08, 2024 9:57am TAKE 1 TABLET BY MOUTH EVERY DAY Start: 06-03-2023 take 1 tablet by yenifer once daily Norethindrone-E.Estradiol-Iron (Blisovi 24 Fe) 1 mg-20 mcg (24)/75 mg (4) tablet Active 0 [address] [id number] June 03, 2023 2:59pm TAKE 1 TABLET BY MOUTH EVERY DAY Start: 02-19-2022 End: 03-25-2023 take 1 tablet by mouth once daily Norethindrone-E.Estradiol-Iron (Blisovi 24 Fe) 1 mg-20 mcg (24)/75 mg (4) tablet Discontinued 0 [address] [id number] February 19, 2022 9:37am March 25, 2023 10:38am TAKE 1 TABLET BY MOUTH EVERY DAY Start: 02-19-2022 End: 03-25-2023 take 1 tablet by mouth once daily Norethindrone-E.Estradiol-Iron (Blisovi 24 Fe) 1 mg-20 mcg (24)/75 mg (4) tablet Discontinued 0 [address] [place] February 19, 2022 9:37am March 25, 2023 10:38am TAKE 1 TABLET BY MOUTH EVERY DAY Start: 02-19-2022 End: 03-25-2023 take 1 tablet by mouth once daily Norethindrone-E.Estradiol-Iron (Blisovi 24 Fe) 1 mg-20 mcg (24)/75 mg (4) tablet Discontinued 0 .ROUTE [place] February 19, 2022 8:37am March 25, 2023 9:38am TAKE 1 TABLET BY MOUTH EVERY DAY Start: 12-27-2021 End: 02-19-2022 take 1 tablet by mouth once daily Norethindrone-E.Estradiol-Iron (Blisovi 24 Fe) 1 mg-20 mcg (24)/75 mg (4) tablet Discontinued 0 .ROUTE [place] 16 04December 27, 2021 9:29am February 19, 2022 9:38am TAKE 1 TABLET BY MOUTH EVERY DAY Start: 12-27-2021 End: 02-19-2022 take 1 tablet by mouth once daily Norethindrone-E.Estradiol-Iron (Blisovi 24 Fe) 1 mg-20 mcg (24)/75 mg (4) tablet Discontinued 0 .ROUTE [place] December 27, 2021 9:29am February 19, 2022 9:38am TAKE 1 TABLET BY MOUTH EVERY DAY Start: 12-27-2021 End: 02-19-2022 take 1 tablet by mouth once daily Norethindrone-E.Estradiol-Iron (Blisovi 24 Fe) 1 mg-20 mcg (24)/75 mg (4) tablet Discontinued 0 .ROUTE [place] December 27, 2021 8:29am February 19, 2022 8:38am TAKE 1 TABLET BY MOUTH EVERY DAY Start: 12-11-2020 End: 12-27-2021 Norethindrone-E.Estradiol-Ir on ( Fe 24) 1 mg-20 mcg (24)/75 mg (4) tablet Discontinued 1 {tbl} PO daily 16 04December 11, 2020 12:00am December 27, 2021 9:29am Start: 12-11-2020 End: 12-27-2021 Norethindrone-E.Estradiol-Ir on (Septemberl Fe 24) 1 mg-20 mcg (24)/75 mg (4) tablet Discontinued 1 {tbl} PO daily December 11, 2020 12:00am December 27, 2021 9:29am Start: 12-11-2020 End: 12-27-2021 take 1 tablet by mouth once daily Norethindrone-E.Estradiol-Iron ( Fe 24) 1 mg-20 mcg (24)/75 mg (4) tablet Discontinued 1 TABLET PO daily December 10, 2020 11:00pm December 27, 2021 8:29am Ethinyl Estradiol / norgestimate (20 sources) Progestin, Estrogen Start: 03-25-2017 End: 06-30-2018 take 1 tablet by mouth once daily Sprintec 28 0.25-35 MG-MCG Oral Tablet ; 1 (one) Tablet daily for 0 days Quantity: 1 {Package} Refills: 11 Ordered: 30-Jun-2018 MICH Heard Start: 25-Mar-2017 End: 30-Jun-2018 Status: Inactive Start: 06-04-2016 End: 10-07-2017 Norgestimate-Ethinyl Estradi ol 1 EACH tablet Discontinued 1 NMA PO DAILY June 04, 2016 1:00am October 07, 2017 3:54pm Start: 06-04-2016 End: 10-07-2017 Norgestimate-Ethinyl Estradi ol Discontinued 1 EACH PO DAILY June 04, 2016 12:00am October 07, 2017 2:54pm fluconazole 150 mg oral tablet (20 sources) Azole Antifungal Start: 06-03-2023 End: 06-08-2024 Fluconazole 150 mg tablet Discontinued 150 mg PO .COMPLEX 2 0 June 03, 2023 1:00am June 08, 2024 9:57am 150 mg PO take one po now and repeat in 3 days Start: 08-01-2019 End: 08-08-2019 take 1 tablet by mouth once daily Diflucan 100 MG Oral Tablet ; 1 Tablet daily for 7 days Quantity: 7 {Tablet} Refills: 0 Ordered: 01-Aug-2019 ERIK Moon Start: 01-Aug-2019 End: 08-Aug-2019 Status: Inactive FLUoxetine 40 mg oral capsule (18 sources) Serotonin Reuptake Inhibitor Start: 03-25-2017 End: 04-21-2017 take 1 capsule by mouth once daily FLUoxetine HCl 40 MG Oral Capsule ; 1 (one) Capsule daily for 0 days Quantity: 30 {Capsule} Refills: 0 Ordered: 21-Apr-2017 ERIK Moon Start: 25-Mar-2017 End: 21-Apr-2017 Status: Inactive fluticasone propionate 0.05 mg/actuat metered dose nasal spray (20 sources) Corticosteroid Start: 10-16-2016 End: 02-24-2017 take 2 spray(s) nasal route once daily Fluticasone Propionate 50 MCG/ACT Nasal Suspension ; 2 (two) sprays each nostril daily for 30 days Quantity: 1 {Bottle} Refills: 1 Ordered: 24-Feb-2017 TAMARA Newman Jeryr Rachel Start: 16-Oct-2016 End: 24-Feb-2017 Status: Inactive Start: 10-08-2012 End: 10-14-2013 take 2 spray(s) nasal route once daily FLUTICASONE PROPIONATE, 50MCG/ACT (Nasal Suspension) ; 2 (two) sprays each nostril daily for 30 days Quantity: 1 {bottle(s)} Refills: 5 Ordered: 14-Oct-2013 Start: 08-Oct-2012 End: 14-Oct-2013 Status: Inactive ibuprofen 800 mg oral tablet (10 sources) Nonsteroidal Anti-inflammatory Drug Start: 06-12-2016 End: 10-07-2017 take 1 tablet by mouth three times daily as needed for pain Ibuprofen 800 MG tablet Discontinued 800 mg PO 3 TIMES DAILY NEEDED as needed for Pain June 12, 2016 1:00am October 07, 2017 3:54pm ketotifen 0.25 mg/ml ophthalmic solution (18 sources) Histamine-1 Receptor Inhibitor Start: 09-14-2015 End: 04-02-2016 Ketotifen Fumarate 0.025 % Ophthalmic Solution ; 1 (one) drop both eyes two times daily for 0 days Quantity: 1 {Bottle} Refills: 0 Ordered: 02-Apr-2016 MICH Heard Start: 14-Sep-2015 End: 02-Apr-2016 Status: Inactive 24 hr loratadine 10 mg / pseudoephedrine sulfate 240 mg extended release oral tablet (18 sources) alpha-Adrenergic Agonist Start: 12-25-2011 End: 10-14-2013 take 10-240 mg by mouth every twenty-four hours CLARITIN-D 24 HOUR, 10-240MG (Oral Tablet Extended Release 24 Hour) ; 1 Tablet ER 24HR daily for 0 days Quantity: 30 {Tablet_ER_24HR} Refills: 0 Ordered: 14-Oct-2013 Start: 25-Dec-2011 End: 14-Oct-2013 Status: Inactive meclizine hydrochloride 25 mg oral tablet (18 sources) Antiemetic Start: 01-13-2019 End: 02-14-2019 take 1 tablet by mouth three times daily as needed for dizziness Meclizine HCl 25 MG Oral Tablet ; 1 Tablet three times daily, as needed for dizziness for 0 days Quantity: 30 {Tablet} Refills: 0 Ordered: 14-Feb-2019 TAMARA Newman Jerry Rachel Start: 13-Jan-2019 End: 14-Feb-2019 Status: Inactive Comments: Medication taken as needed. Comment on above: Medication taken as needed. metoclopramide 10 mg oral tablet (10 sources) Dopamine-2 Receptor Antagonist Start: 10-26-2017 End: 04-07-2018 take 1 tablet by mouth three times daily as needed for headache Metoclopramide Hcl (Reglan) 10 mg tablet Discontinued 10 mg PO THREE TIMES A DAY as needed for headache 90 3 October 26, 2017 12:00am April 07, 2018 5:23pm metroNIDAZOLE 7.5 mg/ml topical cream (18 sources) Nitroimidazole Antimicrobial Start: 05-23-2019 End: 11-21-2020 metroNIDAZOLE 0.75 % External Cream ; apply cream cream twice daily for 0 days Quantity: 45 {Gram} Refills: 2 Ordered: 21-Nov-2020 TAMARA Abdul Start: 23-May-2019 End: 21-Nov-2020 Status: Inactive naproxen 500 mg oral tablet (10 sources) Nonsteroidal Anti-inflammatory Drug Start: 05-12-2018 End: 05-24-2018 take 1 tablet by mouth twice daily as needed for pain Naproxen 500 MG tablet Discontinued 500 mg PO TWICE DAILY NEEDED as needed for Pain 60 1 May 12, 2018 1:00am May 24, 2018 4:14pm nitrofurantoin, macrocrystals 25 mg / nitrofurantoin, monohydrate 75 mg oral capsule (10 sources) Nitrofuran Antibacterial Start: 04-28-2018 End: 05-05-2018 take 1 capsule by mouth twice daily at mealtime Nitrofurantoin Monohyd/M-Cryst (Macrobid) 100 mg capsule Discontinued 100 mg PO TWICE A DAY 14 7 0 April 28, 2018 1:00am May 04, 2018 1:00am May 05, 2018 1:07am must administer with a meal/food Prenat.Vits,Jonathan,Min -Iron-Folic ( Vitamin) tablet (10 sources) Start: 10-07-2017 End: 05-24-2018 Prenat.Vits,Jonathan,Mi l-Nlpu-Hmbdn ( Vitamin) tablet Discontinued 1 {tbl} PO daily October 07, 2017 12:00am May 24, 2018 4:14pm Start: 10-07-2017 End: 05-24-2018 Prenat.Vits,Jonathan,Ijr-Udwx-Haf ic ( Vitamin) tablet Discontinued 1 {tbl} PO daily October 07, 2017 12:00am May 24, 2018 4:14pm Start: 10-07-2017 End: 05-24-2018 take 1 tablet by mouth once daily Prenat.Vits,Jonathan,Tmj-Fhwf-Rzfqg ( Vitamin) tablet Discontinued 1 TABLET PO daily October 06, 2017 11:00pm May 24, 2018 3:14pm promethazine hydrochloride 25 mg oral tablet (20 sources) Phenothiazine Start: 01-13-2019 End: 02-14-2019 take 1 tablet by mouth every six hours for nausea Promethazine HCl 25 MG Oral Tablet ; 1 Tablet Every 6 hours for nausea for 0 days Quantity: 30 {Tablet} Refills: 0 Ordered: 14-Feb-2019 TAMARA Newman Start: 13-Jan-2019 End: 14-Feb-2019 Status: Inactive Start: 10-07-2017 End: 11-02-2017 take 1 tablet by mouth every six hours as needed for nausea and vomiting Promethazine 12.5 mg tablet Discontinued 12.5 mg PO EVERY 6 HOURS as needed for nausea and vomiting 60 4 October 07, 2017 12:00am November 02, 2017 3:57pm raNITIdine 150 mg oral tablet (18 sources) Histamine-2 Receptor Antagonist Start: 12-25-2011 End: 10-14-2013 take 1 tablet by mouth once daily RANITIDINE HCL, 150MG (Oral Tablet) ; 1 Tablet daily for 0 days Quantity: 30 {Tablet} Refills: 0 Ordered: 14-Oct-2013 Start: 25-Dec-2011 End: 14-Oct-2013 Status: Inactive sertraline 50 mg oral tablet (20 sources) Serotonin Reuptake Inhibitor Start: 01-20-2018 End: 08-03-2018 take 1 tablet by mouth once daily Sertraline 50 MG tablet Discontinued 50 mg PO DAILY April 28, 2018 12:36pm August 03, 2018 4:11pm depression spironolactone 50 mg oral tablet (10 sources) Aldosterone Antagonist Start: 03-27-2022 End: 06-03-2023 take 1 tablet by mouth once daily Spironolactone 50 mg tablet Discontinued 50 mg PO DAILY March 27, 2022 1:00am June 03, 2023 3:49pm sulfacetamide sodium 100 mg/ml ophthalmic solution (18 sources) Sulfonamide Antibacterial Start: 10-05-2014 End: 10-12-2014 take 1-2 drop(s) into the eye(s) every four hours SULFACETAMIDE SODIUM, 10% (Ophthalmic Solution) ; 1 to 2 drops into affected eye every 4 hours while awake for 7 days Quantity: 10 {Milliliter} Refills: 0 Ordered: 05-Oct-2014 MD Mervin Arcos Start: 05-Oct-2014 End: 12-Oct-2014 Status: Inactive sulfamethoxazole 800 mg / trimethoprim 160 mg oral tablet (18 sources) Dihydrofolate Reductase Inhibitor Antibacterial, Sulfonamide Antimicrobial Start: 01-07-2011 End: 01-17-2011 take 1 tablet by mouth twice daily BACTRIM DS, 800-160MG (Oral Tablet) ; 1 Tab two times daily for 10 days Quantity: 20 {Tab} Refills: 0 Ordered: 24-Feb-2011 MD Jame Wolfe Start: 07-Jan-2011 End: 17-Jan-2011 Status: Inactive tirzepatide 2.5 mg/0.5 mL subcutaneous pen injector (6 sources) Start: 10-20-2023 End: 01-27-2024 inject 0.31 mL by subcutaneous injection every week tirzepatide 2.5 mg/0.5 mL subcutaneous pen injector ; 0.31 mL weekly for 0 days Quantity: 2.5 {Milliliter} Refills: 0 Ordered: 27-Jan-2024 ARAVIND Cedillo Start: 20-Oct-2023 End: 27-Jan-2024 Status: Discontinued Comments: Substitute: Tirzepatide/Niacin amide 8/2 mg/mL, the 2.5mL vial- patient to give 0.31mL weekly Start: 10-20-2023 inject 0.31 mL by meza bcutaneous injection every week tirzepatide 2.5 mg/0.5 mL subcutaneous pen injector ; 0.31 mL weekly for 0 days Quantity: 2.5 {Milliliter} Refills: 0 Ordered: 20-Oct-2023 MICH Wright Start: 20-Oct-2023 Comments: Substitute: Tirzepatide/Niacinamide 8/2 mg/mL, the 2.5mL vial- patient to give 0.31mL weekly Start: 10-20-2023 inject 0.31 mL by meza bcutaneous injection every week tirzepatide 2.5 mg/0.5 mL subcutaneous pen injector ; 0.31 mL weekly for 0 days Quantity: 2.5 {Milliliter} Refills: 0 Ordered: 20-Oct-2023 ARAVIND Cedillo Start: 20-Oct-2023 Comments: Substitute: Tirzepatide/Niacinamide 8/2 mg/mL, the 2.5mL vial- patient to give 0.31mL weekly Comment on above: Substitute: Tirzepat anshul/Niacinamide 8/2 mg/mL, the 2.5mL vial- patient to give 0.31mL weekly triamcinolone acetonide 1 mg/ml topical cream (18 sources) Corticosteroid Start: 06-22-19 End: 09-22-19 12 TRIAMCINOLONE ACETONIDE, 0.1% (External Cream) ; AAA Cream three times daily for up to 2 weeks for 0 days Quantity: 80 {Gram(s)} Refills: 0 Ordered: 22-Sep-2011 Start: 21-Jun-2010 End: 22-Sep-2011 Status: Inactive 24 hr venlafaxine 37.5 mg extended release oral capsule (20 sources) Serotonin and Norepinephrine Reuptake Inhibitor Start: 01-14-20 19 End: 01-28-20 19 Venlafaxine HCl ER 37.5 MG Oral Capsule Extended Release 24 Hour ; 1 (one) Capsule daily for 7 days, then every other day for 4 pills for 14 days Quantity: 11 {Capsule} Refills: 0 Ordered: 13-Jan-2019 ERIK Moon Start: 13-Jan-2019 End: 27-Jan-2019 Status: Inactive Comments: use 1st Start: 12-10-2018 End: 01-13-2019 take 1 capsule by mouth once daily Venlafaxine HCl ER 75 MG Oral Capsule Extended Release 24 Hour ; 1 (one) Capsule daily for 0 days Quantity: 30 {Capsule} Refills: 5 Ordered: 13-Jan-2019 ERIK Moon Start: 10-Dec-2018 End: 13-Jan-2019 Status: Inactive Comment on above: use 1st Wegovy 0.25 mg/0.5 mL subcutaneous pen injector (18 sources) Start: 05-13-2023 End: 01-27-2024 Wegovy 0.25 mg/0.5 mL subcutaneous pen injector ; 0.25 Milligram every week;administer weeks 1 through 4 of therapy for 0 days Quantity: 1 {Milliliter} Refills: 0 Ordered: 27-Jan-2024 ARAVIND Cedillo Start: 13-May-2023 End: 27-Jan-2024 Status: Inactive Comments: sub: 1mg/mL Semaglutide vial Start: 05-13-2023 Wegovy 0.25 mg /0.5 mL subcutaneous pen injector ; 0.25 Milligram every week;administer weeks 1 through 4 of therapy for 0 days Quantity: 1 {Milliliter} Refills: 0 Ordered: 13-May-2023 TAMARA Dueñas Start: 13-May-2023 Comments: sub: 1mg/mL Semaglutide vial Start: 05-13-2023 Wegovy 0.25 mg /0.5 mL subcutaneous pen injector ; 0.25 Milligram every week;administer weeks 1 through 4 of therapy for 0 days Quantity: 1 {Milliliter} Refills: 0 Ordered: 13-May-2023 ARAVIND Cedillo Start: 13-May-2023 Comments: sub: 1mg/mL Semaglutide vial Start: 04-27-2023 Wegovy 0.25 mg /0.5 mL subcutaneous pen injector ; 0.25 Milligram every week;administer weeks 1 through 4 of therapy for 0 days Quantity: 2 {Milliliter} Refills: 0 Ordered: 27-Apr-2023 ARAVIND Cedillo Start: 27-Apr-2023 Comment on above: sub: 1mg/mL Semaglut anshul vial Problems Active Problems Problem Classification Problem Date Documented Date Episodic/Chronic Abdominal pain (20 sources) Right upper quadrant pain; Translations: [Right upper quadrant pain] 2018 Episodic Adjustment disorders (20 sources) Grief finding; Translations: [Adjustment disorder with depressed mood] 04-27-2023 Chronic Administrative/social admission (20 sources) Issue of repeat prescriptions 02-26-2017 Episodic Allergic reactions (20 sources) Inflammatory dermatosis; Translations: [Dermatitis, unspecified] Onset: 10-24-2024 08-09-2019 Episodic Anxiety disorders (20 sources) Mixed anxiety and depressive disorder; Translations: [Anxiety disorder, unspecified] Onset: 07-29-2024 10-18-2020 Chronic Comment on above: IN THE PAST stable. no meds curr ently Bacterial infection; unspecified site (20 sources) Chlamydial infection; Translations: [Chlamydial infection, unspecified] 03-25-2017 Episodic Biliary tract disease (20 sources) Gallstone; Translations: [Calculus of gallbladder without cholecystitis without obstruction] 2018 Episodic Cancer of cervix (10 sources) Low grade squamous intraepithelial lesion on cervical Papanicolaou smear; Translations: [Low grade squamous intraepithelial lesion on cytologic smear of cervix (LGSIL)] 10-18-2020 Episodic Comment on above: pap done at [facility] t. ASCUS can not rule out HGSIL. [place] on 10/25/20 Contraceptive and procreative management (1 source) Encounter for initial prescription of contraceptive pills; Translations: [General counseling on prescription of oral contraceptives] 06-03-2023 Episodic Diabetes mellitus without complication (10 sources) Abnormal glucose level; Translations: [Other abnormal glucose] 06-21-2018 Episodic Comment on above: nl 3 hour gtt Diseases of mouth; excluding dental (20 sources) Glossodynia; Translations: [Glossodynia] 11-21-2020 Episodic Early or threatened labor (10 sources) False labor before 37 completed weeks of gestation; Translations: [False labor before 37 completed weeks of gestation, unspecified trimester] 06-21-2018 Episodic Genitourinary congenital anomalies (10 sources) Imperforate hymen; 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 Genitourinary symptoms and ill-defined conditions (20 sources) Dysuria; Translations: [Dysuria] Onset: 08-09-2024 06-24-2017 Episodic Immunizations and screening for infectious disease (20 sources) Patient encounter status; Translations: [Encounter for screening for infections with a predominantly sexual mode of transmission] Onset: 12-06-2024 03-25-2023 Episodic Comment on above: tobi 6 wk pp Inflammation; infection of eye (except that caused by tuberculosis or sexually transmitteddisease) (20 sources) Conjunctivitis; Translations: [Unspecified conjunctivitis] 10-14-2013 Episodic Malaise and fatigue (20 sources) Fatigue; Translations: [Other fatigue] 05-23-2019 Episodic Menstrual disorders (20 sources) Irregular periods; Translations: [Irregular menstruation, unspecified] 03-25-2023 Chronic Mood disorders (20 sources) Depressive disorder; Translations: [Depressive disorder, not elsewhere classified] Onset: 07-29-2024 11-21-2020 Chronic Mycoses (20 sources) Candidiasis of skin; Translations: [Candidiasis of skin and nail] 08-09-2019 Episodic Nonmalignant breast conditions (20 sources) Breast lump; Translations: [Unspecified lump in unspecified breast] 2018 Episodic Other complications of (20 sources) Maternal obesity complicating , childbirth and the puerperium, antepartum; Translations: [Obesity complicating , unspecified trimester] 06-21-2018 Chronic Comment on above: BMI 46.1; HgBA1C ord ered w/NOB 1 tm gct ordered, en couraged healthy weigh gain. plan third TM testing. Other complications of (1 source) Obesity complicating , unspecified trimester; Translations: [Obesity complicating , unspecified trimester] Onset: 07-29-2024 Chronic Other complications of (10 sources) Missed miscarriage; Translations: [Missed ] 2020 Episodic Comment on above: plan d and c Other complications of (10 sources) Disease caused by 2019-nCoV; Translations: [Other viral diseases complicating , unspecified trimester] 10-18-2020 Episodic Comment on above: 81 mg asa in pregnan cy. growth us. Other complications of (20 sources) High risk ; Translations: [Supervision of high risk , unspecified, unspecified trimester] 06-21-2018 Episodic Comment on above: , LITA 02/26/25, PC: Anderina & Stefania *TWINS*, BF Will PRR LITA 05/24/18 Andreina and Stefania boyfriend Aris PRR,, LITA , PC: Andreina & Stefania *TWINS*, BF Will Other complications of (17 sources) Spotting per vagina in ; Translations: [Spotting complicating , unspecified trimester] 07-21-2024 Episodic Other complications of (20 sources) H/O: miscarriage; Translations: [Supervision of with other poor reproductive or obstetric history, unspecified trimester] 07-08-2024 Episodic Comment on above: 2020- D&C @ 10wks; T risomy 21 Other complications of (7 sources) Pruritic urticarial papules and plaques of (PUPPP); Translations: [Pruritic urticarial papules and plaques of ] 11-15-2024 Episodic Comment on above: medrol pk claritan. Seeing derm medrol pk clarcrystal. Confirmed by derm Other complications of (2 sources) Supervision of high risk , unspecified, second trimester; Translations: [Supervision of high risk , unspecified, second trimester] Onset: 11-15-2024 Episodic Other female genital disorders (10 sources) Cervical intraepithelial neoplasia grade 2; Translations: [Moderate cervical dysplasia] 02-19-2022 Episodic Comment on above: discussed exp manage ment vs surgical, proceed with LEEP Other female genital disorders (20 sources) Tight hymenal ring; Translations: [Tight hymenal ring] 03-25-2017 Episodic Other inflammatory condition of skin (20 sources) Rosacea; Translations: [Rosacea, unspecified] 04-27-2023 Chronic Other nervous system disorders (18 sources) Ramos's palsy; Translations: [Ramos's palsy] 02-24-2011 Episodic Other nutritional; endocrine; and metabolic disorders (20 sources) Morbid obesity; Translations: [Morbid (severe) obesity due to excess calories] 03-25-2023 Chronic Comment on above: Years of trying for weight loss, has tried different programs but does not see results and then will get depressed and stop efforts. BMI currently at 50, gets SOB with exertion and not able to perform ADL's w/o difficulty. Desires additional help with weight loss and to help reduce appetite. hbga1c labs/pcos lab s. Other nutritional; endocrine; and metabolic disorders (3 sources) Morbid (severe) obesity due to excess calories; Translations: [Morbid obesity] 03-25-2023 Chronic Other nutritional; endocrine; and metabolic disorders (20 sources) Body mass index 40+ - severely obese; Translations: [Body mass index (BMI) 40.0-44.9, adult] 2018 Chronic Comment on above: 1st trimester glucol a, weekly nsts and q4 week growth us after 32 weeks Other nutritional; endocrine; and metabolic disorders (11 sources) Severe obesity; Translations: [Morbid (severe) obesity due to excess calories] 12-22-2023 Chronic Comment on above: Stopped meds prior, was losing well, but had hair loss. During break appetite was extreme and gained back weight. Recently restarted meds (Zepbound) and feels things are going better Other nutritional; endocrine; and metabolic disorders (4 sources) Obesity; Translations: [Obesity, unspecified] 12-22-2023 Chronic Other nutritional; endocrine; and metabolic disorders (20 sources) Weight gain; Translations: [Abnormal weight gain] 11-21-2020 Episodic Other nutritional; endocrine; and metabolic disorders (4 sources) Weight increased; Translations: [Abnormal weight gain] 11-21-2020 Episodic Other and delivery including normal (20 sources) Dichorionic diamniotic twin ; Translations: [Twin , dichorionic/diamnioti c, unspecified trimester] 06-21-2018 Episodic Comment on above: growth scans q 4 wee ks after 26 weeks LITA 04/27/20 PC: Andreina Aguiar. Spouse:Aris cabrera LTCS- 05/10/18 ? Discussed genetic/ca rrier testing - undecided MFM growth US renal pelvis dilation Twin A-refer to treament. Growth US every 4 weeks. testing 1x per week and daily kick counts due to BMI >40. declines carrier and genetic screen Other screening for suspected conditions (not mental disorders or infectious disease) (1 source) Encounter for screening for diabetes mellitus; Translations: [Encounter for screening for diabetes mellitus] Onset: 12-06-2024 Episodic Other skin disorders (18 sources) Folliculitis; Translations: [Follicular disorder, unspecified] 07-23-2011 Episodic Other upper respiratory disease (20 sources) Allergic rhinitis due to pollen; Translations: [Allergic rhinitis due to pollen] 10-08-2012 Chronic Other upper respiratory infections (20 sources) Acute pharyngitis; Translations: [Acute pharyngitis, unspecified] 10-16-2016 Episodic Otitis media and related conditions (20 sources) Acute suppurative otitis media; Translations: [Acute suppurative otitis media without spontaneous rupture of ear drum, unspecified ear] 01-07-2011 Episodic Residual codes; unclassified (20 sources) Hypersomnia; Translations: [Hypersomnia, unspecified] 05-23-2019 Chronic Residual codes; unclassified (10 sources) Abnormal cytology findings; Translations: [ASCUS favoring dysplasia] 02-19-2022 Episodic Comment on above: bx SEA II: LEEP Residual codes; unclassified (10 sources) History of loop electrosurgical excision procedure; Translations: [Other specified postprocedural states] 02-19-2022 Episodic Comment on above: 12/18/20 SEA 1; rpt p ap yearly until 3 neg. Residual codes; unclassified (15 sources) H/O: ; Translations: [Personal history of other complications of , childbirth and the puerperium] 09-24-2020 Episodic Comment on above: Di DI girls, 38 wk n o complications Residual codes; unclassified (20 sources) Family history of breast cancer; Translations: [Family history of malignant neoplasm of breast] 2018 Episodic Residual codes; unclassified (20 sources) FH: Thyroid disorder; Translations: [Family history of other endocrine, nutritional and metabolic diseases] 2018 Episodic Residual codes; unclassified (20 sources) High risk sexual behavior; Translations: [High risk heterosexual behavior] 03-25-2017 Episodic Residual codes; unclassified (20 sources) Influenza vaccination declined; Translations: [Immunization not carried out because of patient refusal] 2018 Episodic Residual codes; unclassified (7 sources) Infertile 07-08-2024 Episodic Comment on above: ovarian kit reserve, good egg supply and qualityweight loss reviewed. desires weight loss management consult.tsh/pcos/hbga1c labsif labs normal will then desire semen analysis then hsg. will consider medication management. Residual codes; unclassified (1 source) 21 weeks gestation of ; Translations: [21 weeks gestation of ] Onset: 10-10-2024 Episodic Skin and subcutaneous tissue infections (20 sources) Carbuncle and furuncle of unspecified site 01-12-2013 Episodic Unclassified (6 sources) Infertile; Translations: [Infertility] 03-25-2023 Unclassified (18 sources) deliveries 04-27-2023 Comment on above: 2. Unclassified (18 sources) Number of Pregnancies 04-27-2023 Comment on above: 2. Unclassified (8 sources) Follow up for chronic condition - The patient is here for follow-up of depression. The patient always takes the prescribed medications. No side effects noted. The patient has an active lifestyle but no regular exercise program. The patient states that weight has increased (3#), in general mood has improved and they do not have headaches. Note for Chronic condition follow-up: would like to remain on medication 08-09-2019 Unclassified (8 sources) [ADDITIONAL REASON] Rash - The onset of the rash has been acute and has been occurring in a persistent pattern for 1 month. The course has been constant. The rash is characterized as red. The rash was first seen on the upper extremity (axillae). There has been no progression. There has been associated itching and erythema. There has been no associated fever. Note for Rash: she started treatment of diflucan 08/01/2019, right axilla started to clear and then returned...itching is still present and she feels this is the worst symptom 08-09-2019 Unclassified (18 sources) Follow up for multiple chronic conditions - The patient is here for follow-up of depression and obesity. The patient always takes the prescribed medications. No side effects noted. The patient has an active lifestyle but no regular exercise program. The patient's dietary compliance is fairly good usually adhering to recommendations. The patient states that weight has increased (6#), in general mood has improved, sleep patterns have improved and they do not have headaches. 05-23-2019 Unclassified (18 sources) Follow up for multiple chronic conditions - The patient is here for follow-up of anxiety and depression. The patient always takes the prescribed medications. No side effects noted. The patient engages in regular exercise program 1-3 times per week. The patient's dietary compliance is fair often eating foods not normally recommended. The patient states that weight has decreased (3#). Note for Multiple chronic conditions follow-up: pt states she feels the wellbutrin is working better than the venlafaxine worked for her. 02-14-2019 Unclassified (18 sources) Follow Up for Multiple Chronic Conditions - The patient is here for follow-up of depression. The patient always takes the prescribed medications. Side effects noted (fatigue and increased hunger). The patient has an active lifestyle but no regular exercise program. The patient states that weight has increased (13.3), in general mood has improved, sleep patterns have improved and headaches have been noticed occasionally. Note for Multiple chronic conditions follow-up: frustrated with emotions and lack of control over eating - wondering about labs and dietary suggestions 2018 Unclassified (18 sources) Follow Up for Multiple Chronic Conditions - The patient is here for follow-up of depression. The patient always takes the prescribed medications. No side effects noted. The patient engages in regular exercise program 3-5 times per week. The patient's dietary compliance is fairly good usually adhering to recommendations. The patient states that weight has decreased (2.5), in general mood has improved, sleep patterns have improved and headaches have been noticed occasionally. 06-18-2017 Unclassified (18 sources) Follow Up for Multiple Chronic Conditions - The patient is here for follow-up of depression. The patient always takes the prescribed medications. No side effects noted. The patient has an active lifestyle but no regular exercise program. The patient states that weight has decreased (3.5), in general mood has improved (but would like to see more change), sleep patterns have improved and headaches have been noticed occasionally. Note for Multiple chronic conditions follow-up: she would like to increase medication, but she is very happy that mom and boyfriend note such an improvement 03-25-2017 Unclassified (18 sources) several concerns - Pt. would like a test and std testing done today. LMP approximately 06/11/16. Pt. has missed 4-5 control pills this last month (sprintec). she is sexually active and does not use condoms with her current partner....she has had 3 partners in the past year. Pt. is c/o low abdominal cramping at times in the last few days. Pt. is not having any vaginal discharge or vaginal pain or itching. Denies dysuria, hematuria, frequency and urgency. 07-14-2016 Unclassified (10 sources) Rash - The onset of the rash has been acute and has been occurring in a persistent pattern for 1 month. The course has been constant. The rash is characterized as red. The rash was first seen on the upper extremity (axillae). There has been no progression. There has been associated itching and erythema. There has been no associated fever. Note for Rash: she started treatment of diflucan 08/01/2019, right axilla started to clear and then returned...itching is still present and she feels this is the worst symptom 08-09-2019 Unclassified (10 sources) [ADDITIONAL REASON] Follow up for chronic condition - The patient is here for follow-up of depression. The patient always takes the prescribed medications. No side effects noted. The patient has an active lifestyle but no regular exercise program. The patient states that weight has increased (3#), in general mood has improved and they do not have headaches. Note for Chronic condition follow-up: would like to remain on medication 08-09-2019 Past or Other Problems Problem Classification Problem Date Documented Date Episodic/Chronic Mood disorders (18 sources) Mood disorders 09-02-2018 Other complications of (4 sources) Supervision of high risk , unspecified, unspecified trimester; Translations: [Supervision of high risk , unspecified, unspecified trimester] Onset: 08-25-19 Episodic Other complications of (1 source) Spotting complicating , unspecified trimester; Translations: [Spotting complicating , unspecified trimester] Onset: 07-30-19 Episodic Other complications of (1 source) Supervision of with other poor reproductive or obstetric history, unspecified trimester; Translations: [Supervision of with other poor reproductive or obstetric history, unspecified trimester] Onset: 07-30-19 Episodic Previous (1 source) Maternal care for unspecified type scar from previous delivery; Translations: [Maternal care for unspecified type scar from previous delivery] Onset: 07-30-19 Episodic Residual codes; unclassified (1 source) 9 weeks gestation of ; Translations: [9 weeks gestation of ] Onset: 07-30-19 Episodic Residual codes; unclassified (1 source) Personal history of other complications of , childbirth and the puerperium; Translations: [Personal history of other complications of , childbirth and the puerperium] Onset: 07-30-19 Episodic Unclassified (3 sources) Body mass index 40+ - severely obese; Translations: [Body mass index (BMI) greater than 40] 05-10-2018 Unclassified (18 sources) Obesity - The patient's appetite is normal. The patient's dietary intake is normal. The patient has gained pounds. The symptoms have been associated with family history of obesity and fatigue, while the symptoms have not been associated with abdominal pain, amenorrhea, cold intolerance, decreased libido, dyspnea, easy bruisability, edema, headache, hirsutism, hoarseness, striae or visual disturbances. Note for Obesity: pt has always been a steady weightneck- 17 inches bust- 25.5 inches waist- 56 incheships- 58.75 inches 04-27-2023 Unclassified (18 sources) Well adult female - The patient feels well with no complaints, has good energy level and is sleeping well. The first day of the last menstrual period was :. The patient is not using any method of contraception at this time. The patient has a balanced diet. The patient does not exercise. The patient sleeps 7 hours per night. 11-21-2020 Unclassified (18 sources) Rash - The onset of the [...] fever or loss of sensation. 08-01-2019 Unclassified (18 sources) Cold Symptoms - Symptoms include nasal [...] tonsillectomy or recurrent ear infections. 06-23-2019 Unclassified (18 sources) discuss medication - since starting venlafaxine [...] depression but not anxiety fully 01-13-2019 Unclassified (18 sources) discuss change of anti-depressant - Patient has seen [facility] in the past and was seen for depression. Provider started pt. on bupropion 300 mg and medication was helping pt. 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 Patient is not . 06-30-2018 Unclassified (18 sources) Breast lump - The lump is on the right breast. The onset of the lump has been gradual and has been occurring in a persistent pattern for 2 months. The course has been increasing. The lump is described as tender. The lump is described as moderate. The first day of the last menstrual period was : (07/14/2017). Note for Breast lump: sister (age 39) has just undergone bilateral mastectomy for breast CA 08-04-2017 Unclassified (18 sources) UTI - Symptoms include dysuria, urinary [...] do not include current . 06-24-2017 Unclassified (18 sources) Follow Up for Multiple Chronic Conditions [...] daily basis. Note for Multiple chronic conditions follow-up: Pt. started fluoxetine in March, but pt. [...] not as great as before 05-21-2017 Unclassified (18 sources) Depression (Initial) - The onset of [...] relative, suicide or chemical dependency. 02-24-2017 Unclassified (18 sources) Cold Symptoms - Symptoms include ear [...] recurrent ear infections. Note for Upper respiratory infection: Reviewed by JPK. 10-16-2016 Unclassified (18 sources) Well Adult, female - The patient feels well with minor complaints (extra skin vaginally - tampon gets stuck on [...] hours per night. Note for Well Adult, female: Pt. has gotten the depo injections in the past. Pt. has not had depo for over 1 year. Pt. is interested in taking a control pill.2 weeks ago - condom cam off during sex....she took the morning after pill - did not bleed....is due to start period thursday, but is nervous...requesting test in office today 04-02-2016 Unclassified (18 sources) Eye Symptoms - The onset of the eye symptoms has been acute and has been occurring in an increasing pattern for 2 years. The course has been constant. The eye symptoms are described as moderate and involve both eyes. The symptoms are described as itching. Note for Eye symptoms: Has seasonal allergies. Usually has itchy eyes in the spring time. reviewed by B 09-14-2015 Unclassified (18 sources) Cold Symptoms - Symptoms include sneezing, [...] includes seasonal allergies. Note for Upper respiratory infection: reviewed by [facility] 03-06-2015 Unclassified (18 sources) Eye Symptoms - The onset of [...] eyes and watery eyes. Note for Eye symptoms: When she looks in to her eye lid she can see skin. It looks like its peeling away but she cannot get ahold of it. Describes it as a white stringy look . 10-05-2014 Unclassified (18 sources) Cold Symptoms - Symptoms include sneezing, [...] in the house.). Note for Upper respiratory infection: No one else at home sick. reviewed by [facility] 04-14-2014 Unclassified (18 sources) Eye symptoms - The onset of the eye symptoms has been acute and has been occurring in a persistent pattern for 4 days. The course has been worsening. The eye symptoms are described as moderate and involve the right eye. The symptoms are described as itching (feels like something is in it), drainage and swelling. There has been associated eye congestion, eye discharge, itchy eyes, runny nose and watery eyes. 10-14-2013 Unclassified (18 sources) Cold Symptoms - Symptoms include sneezing, [...] history of asthma. Note for Upper respiratory infection: reviewed by B 01-12-2013 Unclassified (18 sources) Allergic rhinitis - The onset of [...] nothing seems to help.). Note for Allergic rhinitis: No allergy testing. Allergies are in the family. 10-08-2012 Unclassified (18 sources) Form Completion Physicals - The patient feels well with no complaints, has good energy level and is sleeping well. The patient exercises 3 - 4 times per week. The patient eats a variety of foods and takes no supplemental vitamins or iron and sleeps on average 9 hours per night. Note for Form completion physical: Work physical. reviewed by [facility] 08-17-2012 Unclassified (18 sources) Cold Symptoms - Symptoms include sneezing, [...] recurrent ear infections. Note for Upper respiratory infection: No shortness of breath or wheezing. 06-24-2012 Unclassified (12 sources) Abdominal pain - The onset of [...] vaginal bleeding or vomiting. Note for Abdominal pain: Has a good appetite. Pain is 7-8/10. Episodes of pain last for about a minute at a time. Last night they were very frequent and kept her from sleeping. 12-25-2011 Unclassified (12 sources) [ADDITIONAL REASON] Cold Symptoms - Symptoms include nasal congestion, runny nose (clear drainage) and dry cough. The onset was gradual 1 week(s) ago. The symptoms occur constantly. The patient describes this as mild and improving. The patient is not currently being treated for this problem. 12-25-2011 Unclassified (18 sources) boils - Pt saw Dr. Wolfe [...] week. No current treatment.No drainage. 09-22-2011 Unclassified (18 sources) Skin Lesion - The skin lesion appeared rapidly and has been occurring for 1 month. It has been increasing in size. The skin lesion is characterized as red and raised above the skin. Note for Skin Lesion: Several sore areas under right arm. reviewed by [facility] 07-23-2011 Unclassified (18 sources) Sore Throat - The onset of [...] are no relieving factors. Note for Sore Throat: reviewed by [facility] 06-13-2011 Unclassified (18 sources) Lips and mouth swollen - Grandma has pt here today because yestereday afternoon [...] Benadryl or anthing for this. reviewed by [facility] 02-24-2011 Unclassified (18 sources) Cold Symptoms - Symptoms include sneezing, nasal congestion, runny nose, ear pain (Right ear), dry cough and headache, but do not include fever. The onset was gradual 3 week(s) ago. The symptoms occur constantly. The patient describes this as moderate in severity and worsening. Current treatment includes allergy medications. Note for Cold Symptoms: reviewed by [facility] 01-07-2011 Unclassified (18 sources) Rash - The onset of the [...] has been no associated fever. Note for Rash: only on her left side, no new skin products/soaps/detergents 06-21-2010 Unclassified (6 sources) Cold Symptoms - Symptoms include nasal congestion, runny nose (clear drainage) and dry cough. The onset was gradual 1 week(s) ago. The symptoms occur constantly. The patient describes this as mild and improving. The patient is not currently being treated for this problem. 12-25-2011 Unclassified (6 sources) [ADDITIONAL REASON] Abdominal pain - The onset [...] vaginal bleeding or vomiting. Note for Abdominal pain: Has a good appetite. Pain is 7-8/10. Episodes of pain last for about a minute at a time. Last night they were very frequent and kept her from sleeping. 12-25-2011 Unclassified (1 source) Obesity follow-up - Note for Obesity follow-up: SHELLY 04/27/2023 pt seen for weight loss medication [facility] Unclassified (9 sources) Obesity follow-up - The patient is partially compliant with diet (patient was suppose to eat a diet higher in protein). The patient exercises at home. The patient exercises 3 times per week (3-4x a week she will walk one mile). The patient does not keep a food diary. The patient currently takes ___ (wegovy injection). The patient takes their medication every day (every week). The patient reports experiencing nausea (was bad at first but is better now). Note for Obesity follow-up: SHELLY 04/27/2023 pt seen for weight loss medication and started on wegovypt is down 32 lbs since SHELLY Neck 15Bust 49.25waist 50.75hips 49.5I think the bust was measured incorrectly the first time 08-24-2023 Unclassified (4 sources) Obesity follow-up - The patient is partially compliant with diet. The patient exercises walking. The patient exercises 2 times per week. The patient currently takes ___ (wegovy). The patient takes their medication every day (1 time a week). The patient is not pleased with progress on their diet. 12-22-2023 Unclassified (1 source) weight check up - Patty is here for check up for weight loss. She states that she feels good, and is tolerating medication well. She is pleased with weight loss, and measurement changes. She walks for exercise. 04-27-2024 Results Test Name Value Interpretation Reference Range Facility Absolute lymphocyte countOrd ered By: Bessie Mansfield on 12-06-2024 Lymphocytes Auto (Unsp spec) [#/Vol] 1.30 10*3/uL 0.83-4.51 Absolute neutrophil countOrd ered By: Bessie Mansfield on 12-06-2024 Neutrophils (Bld) [#/Vol] 7.7 10*3/uL 2.0-7.7 Automated lymphocyte count a s percentage of total leukocytesOrdered By: Bessie Mansfield on 12-06-2024 Lymphocytes/100 WBC Auto (Unsp spec) 13.5 % Low 19-41 Basophil percentageOrdered B y: Bessie Mansfield on 12-06-2024 Basophils/100 WBC (Bld) 0.2 % 0-1 [facility] CBC W/Diff, Automatedon 11-18 Absolute Lymph 1.30 X10 3/uL Normal 0.83-4.51 Comment on above: Performed By: #### M 100.2200, L7000.1800 #### Laboratory [address] [place], [address] Absolute Neut 7.7 X10 3/uL Normal 2.0-7.7 Comment on above: Performed By: #### M 100.2200, L7000.1800 #### Laboratory [address] [place], [address] Basophils/100 WBC (Bld) 0.2 % Normal 0-1 [facility] Comment on above: Performed By: #### M 100.2200, L7000.1800 #### Laboratory [address] [place], [address] Eosinophils/100 WBC (Bld) 1.0 % Normal 0-5 Comment on above: Performed By: #### M 100.2200, L7000.1800 #### Laboratory [address] [place], [address] Erythrocyte distribution width (RBC) [Ratio] 12.3 % Normal 11.6-14.6 Comment on above: Performed By: #### M 100.2200, L7000.1800 #### Laboratory [address] [place], [address] Hematocrit (Bld) [Volume fraction] 36.2 % Low 37-47 Comment on above: Performed By: #### M 100.2200, L7000.1800 #### Laboratory [address] [place], [address] Hemoglobin (Bld) [Mass/Vol] 12.5 g/dL Normal 12.0-15.0 Comment on above: Performed By: #### M 100.2200, L7000.1800 #### Laboratory [address] [place], [address] IG% 1.200 High 0.0-0.9 Comment on above: Result Comment: IG% - Immature Granulocytes (promyelocytes, myelocytes and metamyelocytes) > 1% indicates that a LEFT SHIFT is Present. Performed By: #### M 100.2200, L7000.1800 #### Laboratory [address] [place], [address] Lymphocytes/100 WBC (Bld) 13.5 % Low 19-41 Comment on above: Performed By: #### M 100.2200, L7000.1800 #### Laboratory [address] [place], [address] MCH (RBC) [Entitic mass] 31.8 pg Normal 27.0-32.0 Comment on above: Performed By: #### M 100.2200, L7000.1800 #### Laboratory [address] [place], [address] MCHC (RBC) [Mass/Vol] 34.5 g/dL Normal 32-36 [facility] Comment on above: Performed By: #### M 100.2200, L7000.1800 #### Laboratory [address] [place], [address] MCV (RBC) [Entitic vol] 92.1 fL Normal 81-99 [facility] Comment on above: Performed By: #### M 100.2200, L7000.1800 #### Laboratory [address] [place], [address] Monocytes/100 WBC (Bld) 3.8 % Normal 0-10 [facility] Comment on above: Performed By: #### M 100.2200, L7000.1800 #### Laboratory [address] [place], [address] Neutrophils/100 WBC (Bld) 80.3 % High 47-70 Comment on above: Performed By: #### M 100.2200, L7000.1800 #### Laboratory [address] [place], [address] Nucleated RBC (Bld) [#/Vol] 0 10*3/uL Normal 0-5 Comment on above: Performed By: #### M 100.2200, L7000.1800 #### Laboratory [address] [place], [address] Platelet mean volume (Bld) [Entitic vol] 12.1 fL High 6.2-12.0 Comment on above: Performed By: #### M 100.2200, L7000.1800 #### Laboratory [address] [place], [address] Platelets (Bld) [#/Vol] 205 10*3/uL Normal 150-450 Comment on above: Performed By: #### M 100.2200, L7000.1800 #### Laboratory [address] [place], [address] RBC (Bld) [#/Vol] 3.93 10*6/uL Low 4.2-5.4 [facility] Comment on above: Performed By: #### M 100.2200, L7000.1800 #### Laboratory [address] [place], [address] RDW SD 41.9 fl Normal 35.1-43.9 Comment on above: Performed By: #### M 100.2200, L7000.1800 #### Laboratory [address] [place], [address] WBC (Bld) [#/Vol] 9.6 10*3/uL Normal 4.4-11.0 [facility] Comment on above: Performed By: #### M 100.2200, L7000.1800 #### Laboratory [address] [place], [address] Eosinophil percentageOrdered By: Bessie Hecker on 12-06-2024 Eosinophils/100 WBC (Bld) 1.0 % 0-5 Erythrocyte distribution wid th ratioOrdered By: Bessie Mansfield on 12-06-2024 Erythrocyte distribution width (RBC) [Ratio] 12.3 % 11.6-14.6 Erythrocyte distribution wid th standard deviationOrdered By: Bessie Mansfield on 12-06-2024 Erythrocyte distribution width (RBC) [Ratio] 41.9 fl 35.1-43.9 Glucose Challenge Gest 1H 50 juan diego 12-06-2024 GLU GEST 50g 1H 168 mg/dL High 70-140 Comment on above: Result Comment: AMENDED REPORT 12/06/241709 GLU GEST 50g 1H previously reported as: 168 H mg/dL Performed By: #### M 100.2200, L7000.1800 #### Laboratory [address] [place] [place], [id number] Glucose measurement at 2 gabriella rs post-dose gestational glucose tolerance testOrdered By: Bessie Mansfield on 12-06-2024 Glucose [Mass/Vol] 167 mg/dL High 70-140 [facility] Comment on above: Previous reported re sult: 168 mg/dLEdited by: JARED on 12/06/24:1710 AMENDED REPORT 12/06/241709 GLU GEST 50g 1H previously reported as: 168 H mg/dL HIVon 12-06-2024 HIV Non-Reactive Normal Nonreactive Comment on above: Result Comment: Non- Reactive Reactive Repeatedly reactive samples must be confirmed according to CDC recommended confirmatory algorithms. The subresults for either HIVAG or AHIV can be used as an aid in the selection of the confirmation algorithm for reactive samples. Send out specimens with Reactive results to [facility] for confirmation. Order the HIV antibody detection and differentiation: lc#[id number] Performed By: #### M 100.2200, L7000.1800 #### Laboratory [address] [place], [place], [id number] Hematocrit Auto (Bld) [Volum e fraction]Ordered By: Bessie Mansfield on 12-06-2024 Hematocrit (Bld) [Volume fraction] 36.2 % Low 37-47 Hemoglobin measurementOrdere d By: Bessie Mansfield on 12-06-2024 Hemoglobin (Bld) [Mass/Vol] 12.5 g/dL 12.0-15.0 Immature granulocytes/100 WB C Auto (Bld)Ordered By: Bessie Mansfield on 12-06-2024 Immature granulocytes/100 WBC (Bld) 1.200 % High 0.0-0.9 Comment on above: IG% - Immature Granu locytes (promyelocytes, myelocytes and metamyelocytes) > 1% indicates that a LEFT SHIFT is Present. MCV (mean corpuscular volume ) determinationOrdered By: Bessie Mansfield on 12-06-2024 MCV (RBC) [Entitic vol] 92.1 fL 81-99 [facility] Mean corpuscular hemoglobin (MCH) determinationOrdered By: Bessie Mansfield on 12-06-2024 MCH (RBC) [Entitic mass] 31.8 pg 27.0-32.0 Mean corpuscular hemoglobin concentration (MCHC) determinationOrdered By: Bessie Mansfield on 12-06-2024 MCHC (RBC) [Mass/Vol] 34.5 g/dL 32-36 [facility] Mean platelet volume determi nationOrdered By: Bessie Mansfield on 12-06-2024 Platelet mean volume (Bld) [Entitic vol] 12.1 fL High 6.2-12.0 Monocyte percentageOrdered B y: Bessie Mansfield on 12-06-2024 Monocytes/100 WBC (Bld) 3.8 % 0-10 [facility] Neutrophil percentageOrdered By: Bessie Mansfield on 12-06-2024 Neutrophils/100 WBC (Bld) 80.3 % High 47-70 No Panel InformationOrdered By: Bessie Mansfield on 12-06-2024 HIV (1&2) Antibody Non-Reactive Nonreactive [facility] Comment on above: Non-ReactiveReactive Repeatedly reactive samples must be confirmed according to CDC recommended confirmatory algorithms. The subresults for either HIVAG or AHIV can be used as an aid in the selection of the confirmation algorithm for reactive samples.Send out specimens with Reactive results to [facility] for confirmation.Order the HIV antibody detection and differentiation: #[id number] Nucleated red blood cell per centageOrdered By: Bessie Mansfield on 12-06-2024 Nucleated RBC/100 WBC (Bld) [Ratio] 0 % 0-5 [facility] Office Visit Reporton 12-06-2024 [facility] Office Visit Report [facility] [address], [address] [place] [address] OFFICE VISIT Date of Service: 12/06/24 MR#: [id number] Acct: [id number] Name: PATTY ALVAREZ Rep #: [id number] : 1995 Provider: GAVIN solis Age/Sex: 29/F [place] [facility] [place] Intake Vital Signs 09/19/24 14:11 11/15/24 13:35 12/06/24 15:34 Height 5 ft 3 in 5 ft 3 in 5 ft 3 in Weight: 273 lb 8 oz 281 lb 2 oz BMI 48.4 49.8 BP 118/78 126/72 H Intake Visit Reasons: 28wk ob/glucose Chief Complaint: 28 Week OB/Glucose Process Control Specialist Required: No Is patient in pain?: No Allergies Penicillins (PCN) Allergy (Verified 12/06/24 15:39) Rash Medications ???Medication ???Instructions ???Recorded ???Confirmed ???Type docosahexaenoic acid 200 mg mg PO 07/08/24 12/06/24 History capsule ( DHA) ondansetron 4 mg disintegrating 4 mg PO Q6H PRN nausea and 5 12/06/24 Rx tablet vomiting #30 tabs methylprednisolone 4 mg tablets in See Rx Instructions PO PER PKG D IR 11/15/24 12/06/24 Rx a dose pack (Medrol (Melissa)) #21 tabs Last Menstrual Period: 05/22/24 Zika: Zika virus screening: Negative : No PFSH PFSH Medical History History of twin in prior ASCUS favoring dysplasia Morbid obesity Irregular menses Infertility Anxiety and depression Surgical History S/P LEEP H/O dilation and curettage Hx of abdominal surgery History of S/P cholecystectomy Family History Grandfather Cancer lung throat- smoker Father Diabetes Sister Cancer Social History adopted: No household members: significant other, children and other details: her mother lives with them housing: house number of children: 2 current occupational status: employed current occupation: [employer]: [employer] current occupational exposures/hazards: No pets and animals: Yes (Not managing liter box) pets and animals: cat(s) history of recent travel: Yes ( - May 2024) out of state: Yes out of country: No sexually active: Yes Smoking Status: Never smoker second hand exposure: No alcohol intake: former details: Many many years substance use type: does not use well-balanced diet: daily or most days caffeine: Yes Type: carbonated beverages Number of servings: 1 eating out: 1-3 times/week during the past year weight has: remained stable what type of physical activity do you participate in: walking frequency: 1-2 times per week duration: < 15 minutes/day karo/spiritism: None seatbelt use: always do you feel safe at home: Yes additional social history: 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 Date Name GA/Weeks Outcome Route Bth Weight Gen Labor Lgth Anesthesia Del Locatn Provider FOB 05/10/18 Andreina 38 live - full term 6lb 1oz Female spinal [facility] Amee Schaffer 05/10/18 Stefania 38 live - full term 6lbs 5oz Female spin al Amee Schaffer 10/15/20 10 spontaneous Delivery Date: 05/10/18 Last Updated by: Laine Harden Twins; Breech/Breech Delivery Date: 05/10/18 Last Updated by: Laine Harden Twins; Breech/Breech Delivery Date: 10/15/20 Last Updated by: Hannah Mercado RN D C - [facility] HPI 28wk ob/glucose Details: PATTY ALVAREZ is a 29 year old who presents for routine OB visit. OB Visit LITA Calculator Estimated Delivery Date Method Current WG Current Estimate 02/26/25 LMP (Certain) 28w 2d Expected Delivery Route/Plan Labor Preferences- CB/BF classes: no labor support person: Will labor intervention preferences: [] pain management options preferred: epidural ok cut cord/dad catch: yes : yes PP control planned: discussed discussed possible routes of delivery and associated risks: [] special requests: [] Initial Weight: 269 lb Date -???-???-???-???-?? ?-???-???-???-???-? ??-???-???- EGA Weight BP Urine Prot -???-???-???-???-?? ?-???-???-???-???-? ??-???-???- Glucose FHR FuHt Pres Dilation -???-???-???-???-?? ?-???-???-???-???-? ??-???-???- Effaced St Visit Note 07/29/24 -???-???-???-???-?? ?-???-???-???-???-? ??-???-???- 9w 5d 269 lb 4 oz (+4 oz) 125/81 -???-???-???-???-?? ?-???-???-???-???-? ??-???-???- 164 -???-???-???-???-?? ?-???-???-???-??? (more content not included)... Normal Platelet countOrdered By: Earl stapletontay Shyla on 12-06-2024 Platelets (Bld) [#/Vol] 205 10*3/uL 150-450 RBC Auto (Bld) [#/Vol]Ordere d By: Bessie Mansfield on 12-06-2024 RBC (Bld) [#/Vol] 3.93 10*6/uL Low 4.2-5.4 [facility] Syphilis Antibodieson 2024 Syphilis Abs Non-Reactive Normal Nonreactive Comment on above: Performed By: #### M 100.2200, L7000.1800 #### Laboratory [address] [place], [address] White blood cell (WBC) count Ordered By: Bessie Mansfield on 12-06-2024 WBC (Bld) [#/Vol] 9.6 10*3/uL 4.4-11.0 [facility] Laboratory - Chemistry and C hemistry - challengeOrdered By: Bessie Mansfield on 11-15-2024 Glucose Ql (U) Negative Laboratory - UrinalysisOrder ed By: Bessie Mansfield on 11-15-2024 Protein Ql (U) Negative [facility] Office Visit Reporton 11-15-2024 [facility] Office Visit Report [facility] [address], [address] [place] [address] OFFICE VISIT Date of Service: 11/15/24 MR#: [id number] Acct: [id number] Name: PATTY ALVAREZ Rep #: [id number] : 1995 Provider: GAVIN solis Age/Sex: 29/F [place] [facility] [place] Status: Signed Intake Vital Signs 09/19/24 14:11 10/17/24 15:36 11/15/24 13:35 Height 5 ft 3 in 5 ft 3 in 5 ft 3 in Weight: 273 lb 8 oz BMI 48.4 BP 118/78 Intake Visit Reasons: 25wk ob * Chief Complaint: 25 Week OB Process Control Specialist Required: No Is patient in pain?: No Allergies Penicillins (PCN) Allergy (Verified 11/15/24 13:39) Rash Medications ???Medication ???Instructions ???Recorded ???Confirmed ???Type docosahexaenoic acid 200 mg mg PO 07/08/24 11/15/24 History capsule ( DHA) ondansetron 4 mg disintegrating 4 mg PO Q6H PRN nausea and 5 11/15/24 Rx tablet vomiting #30 tabs methylprednisolone 4 mg tablets in See Rx Instructions PO PER PKG D IR 11/15/24 11/15/24 Rx a dose pack (Medrol (Melissa)) #21 tabs Last Menstrual Period: 05/22/24 Zika: Zika virus screening: Negative : Yes PFSH PFSH Medical History History of twin in prior ASCUS favoring dysplasia Morbid obesity Irregular menses Infertility Anxiety and depression Surgical History S/P LEEP H/O dilation and curettage Hx of abdominal surgery History of S/P cholecystectomy Family History Grandfather Cancer lung throat- smoker Father Diabetes Sister Cancer Social History adopted: No household members: significant other, children and other details: her mother lives with them housing: house number of children: 2 current occupational status: employed current occupation: [employer]: [employer] current occupational exposures/hazards: No pets and animals: Yes (Not managing liter box) pets and animals: cat(s) history of recent travel: Yes ( - May 2024) out of state: Yes out of country: No sexually active: Yes Smoking Status: Never smoker second hand exposure: No alcohol intake: former details: Many many years substance use type: does not use well-balanced diet: daily or most days caffeine: Yes Type: carbonated beverages Number of servings: 1 eating out: 1-3 times/week during the past year weight has: remained stable what type of physical activity do you participate in: walking frequency: 1-2 times per week duration: < 15 minutes/day karo/spiritism: None seatbelt use: always do you feel safe at home: Yes additional social history: 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 Date Name GA/Weeks Outcome Route Bth Weight Infant Gen Labor Lgth Anesthesia Del Locatn Provider FOB 05/10/18 Andreina 38 live - [facility] Stef[facility] 38 live - full term 6lbs 5oz Female spin al [facility] 10/15/20 10 spontaneous Delivery Date: 05/10/18 Last Updated by: Laine Harden Twins; Breech/Breech Delivery Date: 05/10/18 Last Updated by: Laine Harden Twins; Breech/Breech Delivery Date: 10/15/20 Last Updated by: Hannah Mercado RN D C - [facility] HPI 25wk ob * Details: PATTY ALVAREZ is a 29 year old who presents for routine OB visit. OB Visit LITA Calculator Estimated Delivery Date Method Current WG Current Estimate 02/26/25 LMP (Certain) 25w 2d Expected Delivery Route/Plan Labor Preferences- CB/BF classes: no labor support person: Will labor intervention preferences: [] pain management options preferred: epidural ok cut cord/dad catch: yes : yes PP control planned: discussed discussed possible routes of delivery and associated risks: [] special requests: [] Initial Weight: 269 lb Date -???-???-???-???-?? ?-???-???-???-???-? ??-???-???- EGA Weight BP Urine Prot -???-???-???-???-?? ?-???-???-???-???-? ??-???-???- Glucose FHR FuHt Pres Dilation -???-???-???-???-?? ?-???-???-???-???-? ??-???-???- Effaced St Visit Note 07/29/24 -???-???-???-???-?? ?-???-???-???-???-? ??-???-???- 9w 5d 269 lb 4 oz (+4 oz) 125/81 -???-???-???-???-?? ?-???-???-???-???-? ??-???-???- 164 -???-???-???-???-?? ?-???-???-???-???-? ??-???-???- LC- CRL con with lm (more content not included)... Normal ANABEL BY IFA SCREEN [CCL]on Nuclear Ab IF (S) [Titer] Negative Normal Negative [facility] Comment on above: Result Comment: Anti -nuclear antibody test is used as an aid in diagnosis of systemic autoimmune diseases. Where positive and clinically warranted, follow-up using disease-specific testing is recommended. Low positive titers are not uncommon with advanced age, certain chronic infections, and malignancies among others. Test methodology: Indirect fluorescence immunoassay (IFA) using HEp-2 cells. [facility] [address] [place] [address] Michel Modi III, M.D. [id number] Performed By: #### 2 50041 #### [facility],[address] [place], [place] [id number] CMP with eGFRon 10-24-2024 AGE 28 years Normal [facility] Comment on above: Performed By: #### 2 92835 #### [facility],[address] [place], [place] [id number] Albumin [Mass/Vol] 2.8 g/dL Low 3.4 - 5.0 [facility] Comment on above: Performed By: #### 2 19794 #### [facility],[address] [place] [address] Albumin/Globulin [Mass ratio] 0.6 {ratio} Low 0.9 - 1.6 [facility] Comment on above: Performed By: #### 2 62933 #### [facility],[address] [place] [address] 87296 ALK PHOS 75 U/L Normal 46 - 116 [facility] Comment on above: Performed By: #### 2 69823 #### [facility],[address] [place] [address] 65668 ALT [Catalytic activity/Vol] 23 U/L Normal 16 - 63 [facility] Comment on above: Performed By: #### 2 55405 #### [facility],[address] [place], [place] [id number] Anion gap [Moles/Vol] 16 mmol/L Normal 10 - 20 [facility] Comment on above: Performed By: #### 2 34634 #### [facility],[address] [place] [address] 98278 AST [Catalytic activity/Vol] 13 U/L Normal 13 - 39 [facility] Comment on above: Performed By: #### 2 32815 #### [facility],[address] [place] [address] 78855 B/C RATIO 13 ratio Normal 0 - 30 [facility] Comment on above: Performed By: #### 2 30687 #### [facility],[address] [place] [address] 13310 Bilirubin [Mass/Vol] 0.4 mg/dL Normal 0.2 - 1.0 [facility] Comment on above: Performed By: #### 2 86556 #### [facility],[address] [place] [address] 66443 Calcium [Mass/Vol] 9.0 mg/dL Normal 8.5 - 10.1 [facility] Comment on above: Performed By: #### 2 90596 #### [place] [id number] Chloride [Moles/Vol] 104 mmol/L Normal 98 - 107 [facility] Comment on above: Performed By: #### 2 36055 #### [facility],[address] [place] [address] CMP with eGFR Normal [facility] Comment on above: Result Comment: COMP REHENSIVE METABOLIC PANEL Performed By: #### 2 08532 #### [place] [address] CO2 [Moles/Vol] 21.8 mmol/L Normal 21.0 - 32.0 [facility] Comment on above: Performed By: #### 2 66906 #### [facility],[address] [place] [address] Creatinine [Mass/Vol] 0.53 mg/dL Low 0.55 - 1.02 [facility] Comment on above: Performed By: #### 2 90590 #### [facility],[address] [place] [address] GFR/1.73 sq M.predicted among non-blacks MDRD (S/P/Bld) [Vol rate/Area] mL/min/{1.73_m2} Normal 60 - 999 [facility] Comment on above: Performed By: #### 2 66856 #### [place] [address] Result Comment: ACCO RDING TO THE NATIONAL KIDNEY DISEASE EDUCATION PROGRAM(NKDE), A NORMAL eGFR IS A VALUE GREATER THAN OR EQUAL TO 60 ML/MIN/1.73 SQ METERS. CHRONIC KIDNEY DISEASE: <60mL/MIN/1.73 SQ METERS KIDNEY FAILURE: <15mL/MIN/1.73 SQ METERS THIS TEST SHOULD ONLY BE USED FOR PATIENTS 18 YEARS OF AGE AND OLDER. Globulin (S) [Mass/Vol] 4.4 g/dL High 1.5 - 3.8 [facility] Comment on above: Performed By: #### 2 11477 #### [facility],[address] [place] [address]135 Glucose [Mass/Vol] 88 mg/dL Normal 74 - 106 [facility] Comment on above: Performed By: #### 2 65084 #### [facility],[address] [place] [address] 86590 Potassium [Moles/Vol] 3.7 mmol/L Normal 3.5 - 5.1 [facility] Comment on above: Performed By: #### 2 90085 #### [facility],[address] [place] [address] 49638 Protein [Mass/Vol] 7.2 g/dL Normal 6.4 - 8.2 [facility] Comment on above: Performed By: #### 2 20573 #### [facility],[address] [place] [address] 25980 Sodium [Moles/Vol] 138 mmol/L Normal 136 - 145 [facility] Comment on above: Performed By: #### 2 37185 #### [facility],[address] [place] [address] 39344 Urea nitrogen [Mass/Vol] 7 mg/dL Normal 7 - 18 [facility] Comment on above: Performed By: #### 2 11442 #### [facility],[address] [place] [address] Laboratory - Chemistry and C hemistry - challengeOrdered By: Bessie Mansfield on 10-17-2024 Glucose Ql (U) Negative Laboratory - UrinalysisOrder ed By: Bessie Mansfield on 10-17-2024 Protein Ql (U) Negative [facility] Office Visit Reporton 10-17-2024 [facility] Office Visit Report [address], [address] [place] [address] OFFICE VISIT Date of Service: 10/17/24 MR#: [id number] Acct: [id number] Name: PATTY ALVAREZ Rep #: [id number] : 1995 Provider: GAVIN solis Age/Sex: 28/F [place] [facility] [place]: Signed Intake Vital Signs 07/29/24 14:29 09/19/24 14:11 10/17/24 15:36 Height 5 ft 3 in 5 ft 3 in 5 ft 3 in Weight: 278 lb 4 oz BMI 49.3 BP 120/74 Intake Visit Reasons: 21 wk ob * Chief Complaint: 21 Week OB Process Control Specialist Required: No Is patient in pain?: No Allergies Penicillins (PCN) Allergy (Verified 10/17/24 15:36) Rash Medications ???Medication ???Instructions ???Recorded ???Confirmed ???Type docosahexaenoic acid 200 mg mg PO 07/08/24 10/17/24 History capsule ( DHA) ondansetron 4 mg disintegrating 4 mg PO Q6H PRN nausea and 5 10/17/24 Rx tablet vomiting #30 tabs Last Menstrual Period: 05/22/24 Zika: Zika virus screening: Negative : No PFSH PFSH Medical History History of twin in prior ASCUS favoring dysplasia Morbid obesity Irregular menses Infertility Anxiety and depression Surgical History S/P LEEP H/O dilation and curettage Hx of abdominal surgery History of S/P cholecystectomy Family History Grandfather Cancer lung throat- smoker Father Diabetes Sister Cancer Social History adopted: No household members: significant other, children and other details: her mother lives with them housing: house number of children: 2 current occupational status: employed current occupation: [employer]: [employer] current occupational exposures/hazards: No pets and animals: Yes (Not managing liter box) pets and animals: cat(s) history of recent travel: Yes ([place] - May 2024) out of state: Yes out of country: No sexually active: Yes Smoking Status: Never smoker second hand exposure: No alcohol intake: former details: Many many years substance use type: does not use well-balanced diet: daily or most days caffeine: Yes Type: carbonated beverages Number of servings: 1 eating out: 1-3 times/week during the past year weight has: remained stable what type of physical activity do you participate in: walking frequency: 1-2 times per week duration: < 15 minutes/day karo/spiritism: None seatbelt use: always do you feel safe at home: Yes additional social history: 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 Date Name GA/Weeks Outcome Route Bth Weight Gen Labor Lgth Anesthesia Del Locat Provider FOB 05/10/18 Andreina 38 live - full term 6lb 1oz Female spinal [facility] Manuel 05/10/18 Stefania 38 live - full term 6lbs 5oz Female spin al [facility] Manuel 10/15/20 10 spontaneous Delivery Date: 05/10/18 Last Updated by: Laine Harden Twins; Breech/Breech Delivery Date: 05/10/18 Last Updated by: Laine Harden Twins; Breech/Breech Delivery Date: 10/15/20 Last Updated by: Hannah Mercado RN D C - [facility] HPI 21 wk ob * Details: PATTY ALVAREZ is a 28 year old who presents for routine OB visit. OB Visit LITA Calculator Estimated Delivery Date Method Current WG Current Estimate 02/26/25 LMP (Certain) 21w 1d Expected Delivery Route/Plan Labor Preferences- CB/BF classes: [] labor support person: [] labor intervention preferences: [] pain management options preferred: [] cut cord/dad catch: [] : [] PP control planned: [] discussed possible routes of delivery and associated risks: [] special requests: [] Initial Weight: 269 lb Date -???-???-???-???-?? ?-???-???-???-???-? ??-???-???- EGA Weight BP Urine Prot -???-???-???-???-?? ?-???-???-???-???-? ??-???-???- Glucose FHR FuHt Pres Dilation -???-???-???-???-?? ?-???-???-???-???-? ??-???-???- Effaced St Visit Note 07/29/24 -???-???-???-???-?? ?-???-???-???-???-? ??-???-???- 9w 5d 269 lb 4 oz (+4 oz) 125/81 -???-???-???-???-?? ?-???-???-???-???-? ??-???-???- 164 -???-???-???-???-?? ?-???-???-???-???-? ??-???-???- LC- CRL con with lmp. declines nipt. LC- CRL con with lmp. declines nip t. desires . hgba1c added for obesity 08/24/24 -???-???-???-???-?? ?-???-???-???-???-? ??-?? (more content not included)... Normal [facility] OB INITIAL >or= 14 WEEKS; 1st GESTATon 10-10-2024 OB INITIAL >or= 14 WEEKS; 1st GESTAT [facility] [address] [place], [place] [address] Patient: PATTY ALVAREZ Phone#: : 1995 Age: 28 Gender: F Pt. Type: Out Account: [id number] Location: Ordering: AMEE SCHAFFER Exam Date: 10/10/2024/14:01 Family Phys: LOUISE MOON Charge Code: [id number] Physician: Republic Order #: [id number] Dose#: PROCEDURE: OB INITIAL >14 WEEKS ULTRASOUND, TRANSABDOMINAL COMPARISON: None. INDICATIONS: Anatomy TECHNIQUE: Complete sonographic examination for obstetrical and evaluation were completed by transabdominal ultrasound. FINDINGS: Study limited by patient body habitus NUMBER: Single. POSITION: Breech/variable AMNIOTIC FLUID VOLUME: Normal for age with KIKI of 11.8 cm. PLACENTA LOCATION: Posterior without previa, tip is 3.6 cm from the cervical os BIPARIETAL DIAMETER: 21 weeks 2 days, 5.1 cm HEAD CIRCUMFERENCE: 21 weeks 3 days, 19.2 cm ABD CIRCUMFERENCE: 20 weeks 0 days, 14.7 cm FEMUR LENGTH: 21 weeks 0 days, 3.5 cm ESTIMATED WEIGHT: 363.2 g +/- 54.5 g CERVICAL LENGTH: 5.1 cm HEART RATE: 142 bpm ANATOMY: The following structures are normal for age unless specified below: Nose/lips, ventricles, posterior fossa, C/T/L spine, four extremities, four chamber heart, thorax, abdomen, 3-vessel cord, cord insertion, stomach, kidneys, and bladder. ABNORMALITIES/OTHER : Limited visualization of the cord insertion. Head circumference/abdom inal circumference 1.03 (1.06-1.25) CLINICAL GA: 20 weeks 1 days CLINICAL LITA: 02/26/2025 ULTRASOUND GA: 21 weeks 0 days ULTRASOUND LITA: 02/20/2025 CONCLUSION: 1. Single live intrauterine gestation measuring 21 weeks 0 days with estimated date of delivery of 02/20/2025 2. Head circumference/Abdom inal circumference ratio slightly above expected range [place] [address] Patient: PATTY ALVAREZ Phone#: : 1995 Age: 28 Gender: F Pt. Type: Out Account: [id number] Location: Ordering: AMEE SCHAFFER Exam Date: 10/10/2024/14:01 Family Phys: LOUISE MOON Charge Code: [id number] Physician: Republic Order #: [id number] Dose#: Dictated by: Danielle Cali MD on 10/10/2024 at 22:18 Approved by: Danielle Cali MD on 10/10/2024 at 22:28 Normal [facility] Laboratory - Chemistry and C hemistry - challengeOrdered By: Ning Oquendo on 09-19-2024 Glucose Ql (U) Negative Laboratory - UrinalysisOrder ed By: Ning Oquendo on 09-19-2024 Protein Ql (U) Negative [facility] Office Visit Reporton 09-19-2024 B[facility]per Office Visit Report [facility] [address], [address] [place] [address] OFFICE VISIT Date of Service: 09/19/24 MR#: [id number] Acct: [id number] Name: PATTY ALVAREZ Rep #: [id number] : 1995 Provider: ARAVIND Hernandez ams Age/Sex: 28/F [place] [facility] [place]: Signed Intake Vital Signs 07/29/24 14:29 08/24/24 14:44 09/19/24 14:11 Height 5 ft 3 in 5 ft 3 in 5 ft 3 in Weight: 273 lb BMI 48.3 BP 122/78 H Intake Visit Reasons: 17 wk ob * Chief Complaint: 17wk OB Process Control Specialist Required: No Is patient in pain?: No Allergies Penicillins (PCN) Allergy (Verified 09/19/24 14:09) Rash Medications ???Medication ???Instructions ???Recorded ???Confirmed ???Type docosahexaenoic acid 200 mg mg PO 07/08/24 09/19/24 History capsule ( DHA) ondansetron 4 mg disintegrating 4 mg PO Q6H PRN nausea and 5 09/19/24 Rx tablet vomiting #30 tabs Last Menstrual Period: 05/22/24 : No Have you fallen in the past year?: No PFSH PFSH Medical History History of twin in prior ASCUS favoring dysplasia Morbid obesity Irregular menses Infertility Anxiety and depression Surgical History S/P LEEP H/O dilation and curettage Hx of abdominal surgery History of S/P cholecystectomy Family History Grandfather Cancer lung throat- smoker Father Diabetes Sister Cancer Social History adopted: No household members: significant other, children and other details: her mother lives with them housing: house number of children: 2 current occupational status: employed current occupation: [employer]: [employer] current occupational exposures/hazards: No pets and animals: Yes (Not managing liter box) pets and animals: cat(s) history of recent travel: Yes ( - May 2024) out of state: Yes out of country: No sexually active: Yes Smoking Status: Never smoker second hand exposure: No alcohol intake: former details: Many many years substance use type: does not use well-balanced diet: daily or most days caffeine: Yes Type: carbonated beverages Number of servings: 1 eating out: 1-3 times/week during the past year weight has: remained stable what type of physical activity do you participate in: walking frequency: 1-2 times per week duration: < 15 minutes/day karo/spiritism: None seatbelt use: always do you feel safe at home: Yes additional social history: 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 Date Name GA/Weeks Outcome Route Bth Weight Gen Labor Lgth Anesthesia Del Locatn Provider FOB 05/10/18 Andreina 38 live - full term 6lb [facility] 05/10/18 Stefania 38 live - full term 6lbs 5oz Female spin al Amee Schaffer 10/15/20 10 spontaneous Delivery Date: 05/10/18 Last Updated by: Laine Harden Twins; Breech/Breech Delivery Date: 05/10/18 Last Updated by: Laine Sullivan Fina Twins; Breech/Breech Delivery Date: 10/15/20 Last Updated by: Hannah Mercado RN D C - [facility] HPI 17 wk ob * Details: PATTY ALVAREZ is a 28 year old who presents for routine OB visit. OB Visit LITA Calculator Estimated Delivery Date Method Current WG Current Estimate 02/26/25 LMP (Certain) 17w 1d Expected Delivery Route/Plan Labor Preferences- CB/BF classes: [] labor support person: [] labor intervention preferences: [] pain management options preferred: [] cut cord/dad catch: [] : [] PP control planned: [] discussed possible routes of delivery and associated risks: [] special requests: [] Initial Weight: 269 lb Date -???-???-???-???-?? ?-???-???-???-???-? ??-???-???- EGA Weight BP Urine Prot -???-???-???-???-?? ?-???-???-???-???-? ??-???-???- Glucose FHR FuHt Pres Dilation -???-???-???-???-?? ?-???-???-???-???-? ??-???-???- Effaced St Visit Note 07/29/24 -???-???-???-???-?? ?-???-???-???-???-? ??-???-???- 9w 5d 269 lb 4 oz (+4 oz) 125/81 -???-???-???-???-?? ?-???-???-???-???-? ??-???-???- 164 -???-???-???-???-?? ?-???-???-???-???-? ??-???-???- LC- CRL con with lmp. declines nipt. LC- CRL con with lmp. declines nip t. desires . hgba1c added for obesity 08/24/24 -???-???-???-???-?? ?-???-???-???-???-? ??-???-???- 13w 3d 269 lb 6 oz (more content not included)... Normal Laboratory - Chemistry and C hemistry - challengeOrdered By: Amee Schaffer on 08-24-2024 Glucose Ql (U) Negative Laboratory - UrinalysisOrder ed By: Amee Schaffer on 08-24-2024 Protein Ql (U) Negative [facility] Office Visit Reporton 08-24-2024 Blow Pit Helper Office Visit Report [facility] [address], [address] [place] [address] OFFICE VISIT Date of Service: 08/24/24 MR#: [id number] Acct: [id number] Name: PATTY ALVAREZ Rep #: [id number] : 1995 Provider: Dr. Amee alvarez MD Age/Sex: 28/F [place] [facility] [place]: Signed Intake Vital Signs 08/04/24 14:29 08/24/24 14:44 Height 5 ft 3 in 5 ft 3 in Weight: 269 lb 6 oz BMI 47.7 BP 125/84 H Intake Visit Reasons: 13wk OB * Process Control Specialist Required: No Allergies Penicillins (PCN) Allergy (Verified 08/24/24 14:50) Rash Medications ???Medication ???Instructions ???Recorded ???Confirmed ???Type docosahexaenoic acid 200 mg mg PO 07/08/24 08/24/24 History capsule ( DHA) Last Menstrual Period: 05/22/24 Zika: Zika virus screening: Negative : No PFSH PFSH Medical History (Updated 08/24/24 @ 15:[address] Amee Schaffer MD) History of twin in prior ASCUS favoring dysplasia Morbid obesity Irregular menses Infertility Anxiety and depression Surgical History S/P LEEP H/O dilation and curettage Hx of abdominal surgery History of S/P cholecystectomy Family History Grandfather Cancer lung throat- smoker Father Diabetes Sister Cancer Social History adopted: No household members: significant other, children and other details: her mother lives with them housing: house number of children: 2 current occupational status: employed current occupation: [employer]: [employer] current occupational exposures/hazards: No pets and animals: Yes (Not managing liter box) pets and animals: cat(s) history of recent travel: Yes ( - May 2024) out of state: Yes out of country: No sexually active: Yes Smoking Status: Never smoker second hand exposure: No alcohol intake: former details: Many many years substance use type: does not use well-balanced diet: daily or most days caffeine: Yes Type: carbonated beverages Number of servings: 1 eating out: 1-3 times/week during the past year weight has: remained stable what type of physical activity do you participate in: walking frequency: 1-2 times per week duration: < 15 minutes/day karo/spiritism: None seatbelt use: always do you feel safe at home: Yes additional social history: 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 Date Name GA/Weeks Outcome Route Bth Weight Gen Labor Lgth Anesthesia Del Locatn Provider FOB 05/10/18 Andreina 38 live - full term 6lb 1oz [facility] 05/10/18 Stefania 38 live - full term 6lbs 5oz Female spin al [facility] Manuel 10/15/20 10 spontaneous Delivery Date: 05/10/18 Last Updated by: Laine Harden Twins; Breech/Breech Delivery Date: 05/10/18 Last Updated by: Laine Harden Twins; Breech/Breech Delivery Date: 10/15/20 Last Updated by: Hannah Mercado RN D C - [facility] HPI 13wk OB * Details: PATTY ALVAREZ is a 28 year old who presents for routine OB visit. OB Visit LITA Calculator Estimated Delivery Date Method Current WG Current Estimate 02/26/25 LMP (Certain) 13w 3d Expected Delivery Route/Plan Labor Preferences- CB/BF classes: [] labor support person: [] labor intervention preferences: [] pain management options preferred: [] cut cord/dad catch: [] : [] PP control planned: [] discussed possible routes of delivery and associated risks: [] special requests: [] Initial Weight: 269 lb Date -???-???-???-???-?? ?-???-???-???-???-? ??-???-???- EGA Weight BP Urine Prot -???-???-???-???-?? ?-???-???-???-???-? ??-???-???- Glucose FHR FuHt Pres Dilation -???-???-???-???-?? ?-???-???-???-???-? ??-???-???- Effaced St Visit Note 07/29/24 -???-???-???-???-?? ?-???-???-???-???-? ??-???-???- 9w 5d 269 lb 4 oz (+4 oz) 125/81 -???-???-???-???-?? ?-???-???-???-???-? ??-???-???- 164 -???-???-???-???-?? ?-???-???-???-???-? ??-???-???- LC- CRL con with lmp. declines nipt. LC- CRL con with lmp. declines nip t. desires . hgba1c added for obesity 08/24/24 -???-???-???-???-?? ?-???-???-???-???-? ??-???-???- 13w 3d 269 lb 6 oz (+6 oz) 125/84 Negative -???-???-???-???-?? ?-???-???-???-???-? ??-???-???- Negative 160 -???-???-???-???-?? ?-???-???-???-???-? ??-???-???- SM- no vb cr amp (more content not included)... Normal Urine Cultureon 08-08-2024 URC Below infection level. Mixed Gram Positive Organisms [place] Count 1000-10,000 MIXC Mixed contaminants. Submit a new specimen if indicated. Normal Comment on above: Performed By: #### M 100.4700 #### Laboratory [address] [facility] [place], [address] Office Visit Reporton 2024 Office Visit Report [facility] [address] [place] [address] OFFICE VISIT Date of Service: 08/05/24 MR#: [id number] Acct: [id number] Patient: PATTY ALVAREZ Rep #: [id number] : 1995 Provider: ARAVIND Hernandez ams Age/Sex: 28/F [place] [facility] Status: Signed Intake Vital Signs 07/29/24 14:29 08/04/24 14:29 Height 5 ft 3 in 5 ft 3 in Weight: 270 lb 6 oz BMI 47.9 Intake Visit Reasons: rpt clean catch/culture per KW Chief Complaint: Spotting and cramping in early Process Control Specialist Required: No Is patient in pain?: No Allergies Penicillins (PCN) Allergy (Verified 08/05/24 14:32) Rash Medications ???Medication ???Instructions ???Recorded ???Confirmed ???Type docosahexaenoic acid 200 mg mg PO 07/08/24 08/05/24 History capsule ( DHA) 08/08/24 1644 Date Ning Oquendo CNM Cosigner Signature: Date (if applicable) CC: Normal Urine cultureOrdered By: Lino Oquendo on 08-05-2024 Bacteria identified Cx Nom (U) Positive Abnormal Chlamydia/GC CUCO aptimaon CHLAMY,NUC ACID Negative Normal Negative Comment on above: Performed By: #### M 100.2200, L7000.1800 #### Laboratory [address] [place], [place], [address] GC BY NUC ACID Negative Normal Negative Comment on above: Result Comment: Perf ormed at: =G - [facility] [address] [id number] Engagement Liaison: Tracie Mackenzie MD, Phone: [phone] Performed By: #### M 100.2200, L7000.1800 #### Laboratory [address] [place], [address] Urine Cultureon 07-31-2024 URC Mixed Gram Positive Organisms [place] Count 50,000-80,000 MIXC Mixed contaminants. Submit a new specimen if indicated. Normal Comment on above: Performed By: #### M 100.2200, L7000.1800 #### Laboratory [address] [place], [address] Absolute lymphocyte countOrd ered By: Jenny So on 07-29-2024 Lymphocytes Auto (Unsp spec) [#/Vol] 1.78 10*3/uL 0.83-4.51 Absolute neutrophil countOrd ered By: Jenny So on 07-29-2024 Neutrophils (Bld) [#/Vol] 6.4 10*3/uL 2.0-7.7 Automated lymphocyte count a s percentage of total leukocytesOrdered By: Jenny So on 07-29-2024 Lymphocytes/100 WBC Auto (Unsp spec) 20.0 % 19-41 Basophil percentageOrdered B y: Jenny So on 07-29-2024 Basophils/100 WBC (Bld) 0.2 % 0-1 [facility] C. trachomatis rRNA CUCO+prob e Ql (Unsp spec)Ordered By: Jenny So on 07-29-2024 Chlamydia DNA (CUCO) Negative Negative [facility] CBC W/Diff, Automatedon 07-19 Absolute Lymph 1.78 X10 3/uL Normal 0.83-4.51 Comment on above: Performed By: #### L 3890.6102, L3890.6301, BTS, L3890.6006, L501.9985, L509.4006, L100.0100, L509.8002 #### Laboratory [address] [facility] [place], [address] Absolute Neut 6.4 X10 3/uL Normal 2.0-7.7 Comment on above: Performed By: #### L 3890.6102, L3890.6301, BTS, L3890.6006, L501.9985, L509.4006, L100.0100, L509.8002 #### Laboratory [address] [place], [address] Basophils/100 WBC (Bld) 0.2 % Normal 0-1 [facility] Comment on above: Performed By: #### L 3890.6102, L3890.6301, BTS, L3890.6006, L501.9985, L509.4006, L100.0100, L509.8002 #### Laboratory [address] [place], [address] Eosinophils/100 WBC (Bld) 0.7 % Normal 0-5 Comment on above: Performed By: #### L 3890.6102, L3890.6301, BTS, L3890.6006, L501.9985, L509.4006, L100.0100, L509.8002 #### Laboratory [address] [place], [address] Erythrocyte distribution width (RBC) [Ratio] 11.9 % Normal 11.6-14.6 Comment on above: Performed By: #### L 3890.6102, L3890.6301, BTS, L3890.6006, L501.9985, L509.4006, L100.0100, L509.8002 #### Laboratory [address] [place], [address] Hematocrit (Bld) [Volume fraction] 39.7 % Normal 37-47 Comment on above: Performed By: #### L 3890.6102, L3890.6301, BTS, L3890.6006, L501.9985, L509.4006, L100.0100, L509.8002 #### Laboratory [address] [place], [address] Hemoglobin (Bld) [Mass/Vol] 13.8 g/dL Normal 12.0-15.0 Comment on above: Performed By: #### L 3890.6102, L3890.6301, BTS, L3890.6006, L501.9985, L509.4006, L100.0100, L509.8002 #### Laboratory [address] [place], [address] IG% 0.700 Normal 0.0-0.9 Comment on above: Result Comment: IG% - Immature Granulocytes (promyelocytes, myelocytes and metamyelocytes) > 1% indicates that a LEFT SHIFT is Present. Performed By: #### L 3890.6102, L3890.6301, BTS, L3890.6006, L501.9985, L509.4006, L100.0100, L509.8002 #### Laboratory [address] [place], [address] Lymphocytes/100 WBC (Bld) 20.0 % Normal 19-41 Comment on above: Performed By: #### L 3890.6102, L3890.6301, BTS, L3890.6006, L501.9985, L509.4006, L100.0100, L509.8002 #### Laboratory [address] [place], [address] MCH (RBC) [Entitic mass] 32.0 pg Normal 27.0-32.0 Comment on above: Performed By: #### L 3890.6102, L3890.6301, BTS, L3890.6006, L501.9985, L509.4006, L100.0100, L509.8002 #### Laboratory [address] [place], [address] MCHC (RBC) [Mass/Vol] 34.8 g/dL Normal 32-36 [facility] Comment on above: Performed By: #### L 3890.6102, L3890.6301, BTS, L3890.6006, L501.9985, L509.4006, L100.0100, L509.8002 #### Laboratory [address] [place], [address] MCV (RBC) [Entitic vol] 92.1 fL Normal 81-99 [facility] Comment on above: Performed By: #### L 3890.6102, L3890.6301, BTS, L3890.6006, L501.9985, L509.4006, L100.0100, L509.8002 #### Laboratory [address] [place], [address] Monocytes/100 WBC (Bld) 6.7 % Normal 0-10 [facility] Comment on above: Performed By: #### L 3890.6102, L3890.6301, BTS, L3890.6006, L501.9985, L509.4006, L100.0100, L509.8002 #### Laboratory [address] [place], [address] Neutrophils/100 WBC (Bld) 71.7 % High 47-70 Comment on above: Performed By: #### L 3890.6102, L3890.6301, BTS, L3890.6006, L501.9985, L509.4006, L100.0100, L509.8002 #### Laboratory [address] [place], [address] Nucleated RBC (Bld) [#/Vol] 0 10*3/uL Normal 0-5 Comment on above: Performed By: #### L 3890.6102, L3890.6301, BTS, L3890.6006, L501.9985, L509.4006, L100.0100, L509.8002 #### Laboratory [address] [place], [address] Platelet mean volume (Bld) [Entitic vol] 12.2 fL High 6.2-12.0 Comment on above: Performed By: #### L 3890.6102, L3890.6301, BTS, L3890.6006, L501.9985, L509.4006, L100.0100, L509.8002 #### Laboratory [address] [place], [address] Platelets (Bld) [#/Vol] 214 10*3/uL Normal 150-450 Comment on above: Performed By: #### L 3890.6102, L3890.6301, BTS, L3890.6006, L501.9985, L509.4006, L100.0100, L509.8002 #### Laboratory [address] [place], [address] RBC (Bld) [#/Vol] 4.31 10*6/uL Normal 4.2-5.4 [facility] Comment on above: Performed By: #### L 3890.6102, L3890.6301, BTS, L3890.6006, L501.9985, L509.4006, L100.0100, L509.8002 #### Laboratory [address] [place], [address] RDW SD 40.1 fl Normal 35.1-43.9 Comment on above: Performed By: #### L 3890.6102, L3890.6301, BTS, L3890.6006, L501.9985, L509.4006, L100.0100, L509.8002 #### Laboratory [address] [place], [address] WBC (Bld) [#/Vol] 8.9 10*3/uL Normal 4.4-11.0 [facility] Comment on above: Performed By: #### L 3890.6102, L3890.6301, BTS, L3890.6006, L501.9985, L509.4006, L100.0100, L509.8002 #### Laboratory [address] [place], [address] Chlamydia trachomatis rRNA d etection by probe and target amplification methodOrdered By: Jenny So on 07-29-2024 C. trachomatis rRNA CUCO+probe Ql (Unsp spec) Negative Negative Eosinophil percentageOrdered By: Jenny So on 07-29-2024 Eosinophils/100 WBC (Bld) 0.7 % 0-5 Erythrocyte distribution wid th (RBC) [Ratio]Ordered By: Jenny So on 07-29-2024 Erythrocyte distribution width (RBC) [Entitic vol] 40.1 fL 35.1-43.9 [facility] Erythrocyte distribution wid th ratioOrdered By: Jennytay So on 07-29-2024 Erythrocyte distribution width (RBC) [Ratio] 11.9 % 11.6-14.6 Erythrocyte distribution wid th standard deviationOrdered By: Jennytay So on 07-29-2024 Erythrocyte distribution width (RBC) [Ratio] 40.1 fl 35.1-43.9 HBV surface Ag Ql (S)Ordered By: Jenny So on 07-29-2024 Hepatitis B Surface Antigen Non-Reactive Nonreactive Comment on above: Reactive: Presumptiv e evidence of HBV. Repeatedly reactive samples must be confirmed using a neutralization test (ElecShopitizes HBsAg Confirmatory Test)Non-Reactive: HBsAg not detected; does not exclude the possibility of exposure to HBV HIVon 07-29-2024 HIV Non-Reactive Normal Nonreactive Comment on above: Result Comment: Non- Reactive Reactive Repeatedly reactive samples must be confirmed according to CDC recommended confirmatory algorithms. The subresults for either HIVAG or AHIV can be used as an aid in the selection of the confirmation algorithm for reactive samples. Send out specimens with Reactive results to [facility] for confirmation. Order the HIV antibody detection and differentiation: lc#[id number] Performed By: #### L 3890.6102, L3890.6301, BTS, L3890.6006, L501.9985, L509.4006, L100.0100, L509.8002 #### Laboratory [address] [facility] [place], [address] Hematocrit Auto (Bld) [Volum e fraction]Ordered By: Jenny So on 07-29-2024 Hematocrit (Bld) [Volume fraction] 39.7 % 37-47 Hemoglobin A1con 07-29-2024 HbA1c (Bld) [Mass fraction] 4.9 % Normal <=5.6 Comment on above: Result Comment: Norm al < 5.7 % Prediabetic 5.7 - 6.4 % Diabetic >or= 6.5 % Please note range changes. Performed By: #### L 3890.6102, L3890.6301, BTS, L3890.6006, L501.9985, L509.4006, L100.0100, L509.8002 #### Laboratory [address] [place], [place], [address] Hemoglobin A1c percentageOrd ered By: Jenny So on 07-29-2024 HbA1c (Bld) [Mass fraction] 4.9 % <5.7 Comment on above: Normal < 5.7 % Predi abetic 5.7 - 6.4 % Diabetic >or= 6.5 % Please note range changes. Hemoglobin measurementOrdere d By: Jenny So on 07-29-2024 Hemoglobin (Bld) [Mass/Vol] 13.8 g/dL 12.0-15.0 Hepatitis C Antibodyon 07-29 Hepatitis C Ab Non-Reactive Normal Nonreactive Comment on above: Result Comment: Reac tive: Presumptive evidence of antibodies to HCV. Follow CDC recommendations for supplemental testing. Non-Reactive: Antibodies to HCV were not detected; does not exclude the possibility of exposure to HCV Reactive Results are presumptive evidence of antibodies to HCV. Follow CDC recommendations for supplemental testing. Order confirmation testing: HCV Quant by PCR testing - HCVPCR #[id number] Non Reactive: < 0.8 Equivocal: >/= 0.8 to < 1.0 Reactive: >/= 1.0 The CDC requires that a reactive/equivocal HCV antibody result be sent out for confirmation. HCV Quant by PCR testing. Performed By: #### M 100.2200, L7000.1800 #### Laboratory [address] [place], [place], [address] Hepatitis C antibodyOrdered By: Jenny So on 07-29-2024 Hepatitis C Antibody Non-Reactive Nonreactive [facility] Comment on above: Reactive: Presumptiv e evidence of antibodies to HCV. Follow CDC recommendations for supplemental testing.Non-Reactive: Antibodies to HCV were not detected; does not exclude the possibility of exposure to HCVReactive Results are presumptive evidence of antibodies to HCV. Follow CDC recommendations for supplemental testing.Order confirmation testing: HCV Quant by PCR testing - HCVPCR #[id number] Non Reactive: < 0.8 Equivocal: >/= 0.8 to < 1.0 Reactive: >/= 1.0The [facility] requires that a reactive/equivocal HCV antibody result be sent out for confirmation. HCV Quant by PCR testing. Immature granulocytes/100 WB C Auto (Bld)Ordered By: Jenny So on 07-29-2024 Immature granulocytes/100 WBC (Bld) 0.700 % 0.0-0.9 Comment on above: IG% - Immature Granu locytes (promyelocytes, myelocytes and metamyelocytes) > 1% indicates that a LEFT SHIFT is Present. L3890.6102on 07-29-2024 HEP B Surf Ag Non-Reactive Normal Nonreactive Comment on above: Result Comment: Reac tive: Presumptive evidence of HBV. Repeatedly reactive samples must be confirmed using a neutralization test ([employer] HBsAg Confirmatory Test) Non-Reactive: HBsAg not detected; does not exclude the possibility of exposure to HBV Performed By: #### M 100.2200, L7000.1800 #### Laboratory [address] [place], [address] L509.4006on 07-29-2024 Rubella IgG REAC Normal Nonreactive Comment on above: Result Comment: Anti body Result: Interpretation Non-Reactive: Non-Immune Reactive: Immune The following results were obtained with the Elecsys Rubella IgG assay. Results from assays of other manufacturers cannot be used interchangeably. Performed By: #### L 3890.6102, L3890.6301, BTS, L3890.6006, L501.9985, L509.4006, L100.0100, L509.8002 #### Laboratory [address] [place], [address] Laboratory - Microbiology an d Antimicrobial susceptibilityOrdered By: Jenny So on 07-29-2024 HBV surface Ag Ql (S) Non-Reactive Nonreactive Comment on above: Reactive: Presumptiv e evidence of HBV. Repeatedly reactive samples must be confirmed using a neutralization test (Elec[employer]izes HBsAg Confirmatory Test)Non-Reactive: HBsAg not detected; does not exclude the possibility of exposure to HBV Lymphocytes Auto (Unsp spec) [#/Vol]Ordered By: Jenny So on 07-29-2024 Lymphocytes (Bld) [#/Vol] 1.78 10*3/uL 0.83-4.5 1 Lymphocytes/100 WBC Auto (Un sp spec)Ordered By: Jenny So on 07-29-2024 Lymphocytes/100 WBC (Bld) 20.0 % 19-41 MCV (mean corpuscular volume ) determinationOrdered By: Jenny So on 07-29-2024 MCV (RBC) [Entitic vol] 92.1 fL 81-99 [facility] Mean corpuscular hemoglobin (MCH) determinationOrdered By: Jenny So on 07-29-2024 MCH (RBC) [Entitic mass] 32.0 pg 27.0-32.0 Mean corpuscular hemoglobin concentration (MCHC) determinationOrdered By: Jenny So on 07-29-2024 MCHC (RBC) [Mass/Vol] 34.8 g/dL 32-36 [facility] Mean platelet volume determi nationOrdered By: Jenny So on 07-29-2024 Platelet mean volume (Bld) [Entitic vol] 12.2 fL High 6.2-12.0 Monocyte percentageOrdered B y: Jenny So on 07-29-2024 Monocytes/100 WBC (Bld) 6.7 % 0-10 [facility] Neisseria gonorrhoeae nuclei c acid detection by amplified probe techniqueOrdered By: Jenny So on 07-29-2024 N. gonorrhoeae DNA CUCO+probe Ql (Unsp spec) Negative Negative Comment on above: Performed at: =G - L [address] [place] [id number] Director: Tracie Mackenzie MD, Phone: [phone] Neutrophil percentageOrdered By: Jenny So on 07-29-2024 Neutrophils/100 WBC (Bld) 71.7 % High 47-70 No Panel InformationOrdered By: Jenny So on 07-29-2024 HIV (1&2) Antibody Non-Reactive Nonreactive [facility] Comment on above: Non-ReactiveReactive Repeatedly reactive samples must be confirmed according to CDC recommended confirmatory algorithms. The subresults for either HIVAG or AHIV can be used as an aid in the selection of the confirmation algorithm for reactive samples.Send out specimens with Reactive results to [facility] for confirmation.Order the HIV antibody detection and differentiation: #[id number] Nucleated red blood cell per centageOrdered By: Jenny So on 07-29-2024 Nucleated RBC/100 WBC (Bld) [Ratio] 0 % 0-5 [facility] Office Visit Reporton 07-29-2024 [facility] Office Visit Report [facility]'[address], [address] [place] [address] OFFICE VISIT Date of Service: 07/29/24 MR#: [id number] Acct: [id number] Name: PATTY ALVAREZ Rep #: [id number] : 1995 Provider: ARAVIND gan Age/Sex: 28/F [place] [facility] [place]: [place] Intake Vital Signs 06/08/24 08:58 07/01/24 13:27 07/21/24 09:52 07/29/24 14:25 07/29/24 14:29 Height 5 ft 3 in 5 ft 3 in 5 ft 3 in 5 ft 3 in 5 ft 3 in Weight: 269 lb 4 oz BMI 47.7 BP 125/81 H Intake Visit Reasons: New OB, LMP 2/2, LITA 02/26 Process Control Specialist Required: No Is patient in pain?: No Allergies Penicillins (PCN) Allergy (Verified 07/29/24 14:25) Rash Medications ???Medication ???Instructions ???Recorded ???Confirmed ???Type docosahexaenoic acid 200 mg mg PO 07/08/24 07/29/24 History capsule ( DHA) Last Menstrual Period: 05/22/24 Zika: Zika virus screening: Negative : No Have you fallen in the past year?: No PFSH PFSH Medical History History of twin in prior ASCUS favoring dysplasia Morbid obesity Irregular menses Infertility Anxiety and depression Surgical History S/P LEEP H/O dilation and curettage Hx of abdominal surgery History of S/P cholecystectomy Family History Grandfather Cancer lung throat- smoker Father Diabetes Sister Cancer Social History adopted: No household members: significant other, children and other details: her mother lives with them housing: house number of children: 2 current occupational status: employed current occupation: [employer]: [employer] current occupational exposures/hazards: No pets and animals: Yes (Not managing liter box) pets and animals: cat(s) history of recent travel: Yes ( - May 2024) out of state: Yes out of country: No sexually active: Yes Smoking Status: Never smoker second hand exposure: No alcohol intake: former details: Many many years substance use type: does not use well-balanced diet: daily or most days caffeine: Yes Type: carbonated beverages Number of servings: 1 eating out: 1-3 times/week during the past year weight has: remained stable what type of physical activity do you participate in: walking frequency: 1-2 times per week duration: < 15 minutes/day karo/spiritism: None seatbelt use: always do you feel safe at home: Yes additional social history: 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 Date Name GA/Weeks Outcome Route Bth Weight Gen Labor Lgth Anesthesia Del Locatn Provider FOB 05/10/18 Andreina 38 live - full term 6lb 1oz Female spinal [facility] Amee Schaffer 05/10/18 Stefania 38 live - full term 6lbs 5oz Female spin al Amee Schaffer 10/15/20 10 spontaneous Delivery Date: 05/10/18 Last Updated by: Laine Harden Twins; Breech/Breech Delivery Date: 05/10/18 Last Updated by: Laine Harden Twins; Breech/Breech Delivery Date: 10/15/20 Last Updated by: MICH Cervantes [facility] - [facility] HPI New OB, LMP 05/22, LITA 02/26 Details: PATTY ALVAREZ is a 28 year old who presents for New OB visit. OB Visit LITA Calculator Estimated Delivery Date Method Current WG Current Estimate 02/26/25 LMP (Certain) 9w 5d Estimated Due Date: 02/26/25 Expected Delivery Route/Plan Labor Preferences- CB/BF classes: [] labor support person: [] labor intervention preferences: [] pain management options preferred: [] cut cord/dad catch: [] : [] PP control planned: [] discussed possible routes of delivery and associated risks: [] special requests: [] Initial Weight: 269 lb Date -???-???-???-???-?? ?-???-???-???-???-? ??-???-???- EGA Weight BP Urine Prot -???-???-???-???-?? ?-???-???-???-???-? ??-???-???- Glucose FHR FuHt Pres Dilation -???-???-???-???-?? ?-???-???-???-???-? ??-???-???- Effaced St Visit Note 07/29/24 -???-???-???-???-?? ?-???-???-???-???-? ??-???-???- 9w 5d 269 lb 4 oz (+4 oz) 125/81 -???-???-???-???-?? ?-???-???-???-???-? ??-???-???- 164 -???-???-???-???-?? ?-???-???-???-???-? ??-???-???- LC- CRL con with lmp. declines nipt. LC- CRL con with lmp. declines nip t. desires . hgba1c added for obesity Menstrual History Last Menstrual Period: 05/22/24 Reported LMP: defini (more content not included)... Normal Platelet countOrdered By: Neena So on 07-29-2024 Platelets (Bld) [#/Vol] 214 10*3/uL 150-450 RBC Auto (Bld) [#/Vol]Ordere d By: Jenny oS on 07-29-2024 RBC (Bld) [#/Vol] 4.31 10*6/uL 4.2-5.4 [facility] Rubella immune status determ ination by IgG antibody assayOrdered By: Jenny So on 07-29-2024 Rubella IgG Antibody REAC Nonreactive [facility] Comment on above: Antibody Result: Int erpretationNon-Reactive: Non-ImmuneReactive: ImmuneThe following results were obtained with the Ele[employer]ys Rubella IgG assay. Results from assays of other manufacturers cannot be used interchangeably. Syphilis Antibodieson 2024 Syphilis Abs Non-Reactive Normal Nonreactive Comment on above: Performed By: #### L 3890.6102, L3890.6301, BTS, L3890.6006, L501.9985, L509.4006, L100.0100, L509.8002 #### Laboratory [address] [place], [address] T. pallidum abOrdered By: Neena So on 07-29-2024 Syphilis Total Antibody Non-Reactive Nonreactiv e Type AND Screenon 07-29-2024 Ab SCREEN GEL Negative Normal Comment on above: Order Comment: PN Performed By: #### L 3890.6102, L3890.6301, BTS, L3890.6006, L501.9985, L509.4006, L100.0100, L509.8002 #### Laboratory [address] [place], [address] Urine cultureOrdered By: Caral So on 07-29-2024 Bacteria identified Cx Nom (U) Positive Abnormal White blood cell (WBC) count Ordered By: Jenny So on 07-29-2024 WBC (Bld) [#/Vol] 8.9 10*3/uL 4.4-11.0 [facility]per Office Visit Reporton 07-21-2024 Blow Pit Helper Office Visit Report [facility] [address], [address] [place] [address] OFFICE VISIT Date of Service: 07/21/24 MR#: [id number] Acct: [id number] Name: PATTY ALVAREZ Rep #: [id number] : 1995 Provider: ARAVIND Hernandez ams Age/Sex: 28/F [place] [facility] [place] Status: Signed Intake Vital Signs 07/01/24 13:27 07/21/24 09:52 Height 5 ft 3 in 5 ft 3 in Weight: 270 lb 4 oz BMI 47.8 BP 122/79 H Intake Visit Reasons: spotting in early Chief Complaint: Spotting and cramping in early Process Control Specialist Required: No Is patient in pain?: Yes (abdominal cramping) Allergies Penicillins (PCN) Allergy (Verified 07/21/24 09:55) Rash Medications ???Medication ???Instructions ???Recorded ???Confirmed ???Type docosahexaenoic acid 200 mg mg PO 07/08/24 07/21/24 History capsule ( DHA) Post menopausal: No [facility] Medical History History of twin in prior ASCUS favoring dysplasia Morbid obesity Irregular menses Infertility Anxiety and depression Surgical History S/P LEEP H/O dilation and curettage Hx of abdominal surgery History of S/P cholecystectomy Family History Grandfather Cancer lung throat- smoker Father Diabetes Sister Cancer Social History adopted: No household members: significant other, children and other details: her mother lives with them housing: house number of children: 2 current occupational status: employed current occupation: [employer]: [employer] current occupational exposures/hazards: No pets and animals: Yes (Not managing liter box) pets and animals: cat(s) history of recent travel: Yes ( - May 2024) out of state: Yes out of country: No sexually active: Yes Smoking Status: Never smoker second hand exposure: No alcohol intake: former details: Many many years substance use type: does not use well-balanced diet: daily or most days caffeine: Yes Type: carbonated beverages Number of servings: 1 eating out: 1-3 times/week during the past year weight has: remained stable what type of physical activity do you participate in: walking frequency: 1-2 times per week duration: < 15 minutes/day karo/spiritism: None seatbelt use: always do you feel safe at home: Yes additional social history: Boyfriend: Will - Cow breeder HPI spotting in early Details: PATTY ALVAREZ is a 28 year old who was worked in today for spotting in early . Started yesterday with pink spotting and has increased slightly today. Has noticed light cramping on left side and has hx of SAB. NOB is scheduled for 07/29. Office US done and FHT at 178. CRL 2.24 and consistent with 9.0 weeks gestation History 3 Elective abortions Hx Para 1 Spontaneous abortions 1 Hx # Term Pregnancies 1 Ectopic pregnancies Hx # Pregnancies Multiple births 1 # of living children 2 Past Pregnancies Del. Date Name GA/Weeks Outcome Route Bth Weight Gen Labor Lgth Anesthesia Del Locatn Provider FOB 05/10/18 Andreina 38 live - full term 6lb 1oz Female spinal [facility] Amee Luxkareem 05/10/18 Stefania 38 live - [facility] 6lbs 5oz [facility] spontaneous Delivery Date: 05/10/18 Last Updated by: Laine Harden Twins; Breech/Breech Delivery Date: 05/10/18 Last Updated by: Laine Harden Twins; Breech/Breech Delivery Date: 10/15/20 Last Updated by: Hannah Mercado RN D [facility] ROS Const Constitutional: Reports system reviewed and no additional complaints, except as documented Cardio Card: Reports system reviewed and no additional complaints, except as documented Resp Resp: Reports system reviewed and no additional complaints, except as documented GI GI: Reports system reviewed and no additional complaints, except as documented : Reports system reviewed and no additional complaints, except as documented; Denies difficulty voiding, dysuria or urinary frequency Skin Skin/Breast: Reports system reviewed and no additional complaints, except as documented Neuro Neuro: Reports system reviewed and no additional complaints, except as documented Psych Psych: Reports system reviewed and no additional complaints, except as documented Exam Const General: cooperative, healthy appearing, comfortable and no acute distress Resp Effort Inspection: normal respiratory effort, able to speak in complete sentences and symmetric chest movement GI Inspection: normal to inspec (more content not included)... 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) Process Control Specialist Required: No Is patient in pain?: No Allergies Penicillins (PCN) Allergy (Verified 06/08/24 08:57) Rash Medications ???Medication ???Instructions ???Recorded ???Confirmed ???Type NK 06/08/24 06/08/24 History Is last menstrual period known: Yes Last Menstrual Period: 05/22/24 Post menopausal: No Patient : No : No Control Method: none PFSH Medical History Non-smoker History of twin in prior Anxiety and depression Surgical History S/P LEEP H/O dilation and curettage Hx of abdominal surgery History of S/P cholecystectomy Family History (Updated 06/08/24 @ 09:05 by Leeann Hawkins NP-C) Grandfather Cancer lung throat- smoker Father Diabetes Sister Cancer Social History adopted: No household members: spouse, family, children and other details: her mother lives with them number of children: 2 current occupational status: employed current occupation: [employer] Smoking Status: Never smoker alcohol intake: never substance use type: does not use caffeine: No what type of physical activity do you participate in: walking frequency: 1-2 times per week seatbelt use: always do you feel safe at home: Yes additional social history: Boyfriend Joe-broadcast director operations Patient works at [employer] History 2 Elective abortions Hx Para 2 Spontaneous abortions Hx # Term Pregnancies 2 Ectopic pregnancies Hx # Pregnancies Multiple births 1 # of living children 2 Past Pregnancies Del. Date Name GA/Weeks Outcome Route Bth Weight Gen Labor Lgth Anesthesia Del Locatn Provider FOB 05/10/18 Andreina 38 live - full term 6lb 1oz Female spinal Wo femi [facility] Amee Schaffer 05/10/18 Stefania 38 live - full term 6lbs 5oz Female spin al Amee Schaffer Delivery Date: 05/10/18 Last Updated by: Laine Harden Twins; Breech/Breech Delivery Date: 05/10/18 Last Updated by: Laine Harden Twins; Breech/Breech HPI Encounter for routine gynecological examination Details: PATTY ALVAREZ is a 28 year old who presents for annual exam. She reports no issues or concerns today. Last PAP: 2022; normal; History of abnormal PAP: ASCUS 2020; 2 normal paps since. Last mammogram: none--sister diagnosed in upper 30's. (Different mothers). History of abnormal mammogram: n/a Colon cancer screening: age 46 Other preventative health care screenings: Louise Moon; PCP Female Reproductive History Last Menstrual Period: 05/22/24 Cycle Length: 21-35 Bleeding Duration: 4 Questions: metorrhagia: No, sexually active: Yes, dyspareunia: No and PCB: No ROS Const Constitutional: Denies chills, fatigue, fever(s), headache(s) or weight loss Eyes Eyes: Denies change in vision ENT ENT: Denies dizziness Resp Resp: Denies cough GI GI: Denies abdominal pain, constipation or nausea : Denies difficulty voiding, dysuria, hematuria, nipple discharge, pelvic pain, prolapse symptoms, urinary incontinence, vaginal discharge, vaginal dryness, vaginal odor or vaginal pruritus Skin Skin/Breast: Denies alopecia, rash, breast mass, breast pain, breast skin changes or nipple discharge Neuro Neuro: Denies dizziness Psych Psych: Denies anxiety or depression Endo Endo: Denies cold intolerance, excessive sweating or heat intolerance Exam Const General: cooperative, healthy appearing, comfortable, no acute distress, well groomed and well hydrated Nutritional Appearance: well nourished Orientation: alert, awake and oriented x3 HENMT Head: normal to inspection and normocephalic Ears: hearing grossly normal bilaterally and external ears normal Nose: external nose normal Face and sinus: normal facial exam Eyes General: appearance normal, both eyes and all related structures Neck Neck: normal visual inspection, full ROM and no lymphadenopathy Thyroid: thyroid normal Chest Chest palpation inspection: normal inspection of the chest Breast inspection: normal inspection of the breast (more content not included)... Normal PREG SERUM QUANTon 4 HCG QUANTITATIVE <1 Normal 0 - 6 [facility] Comment on above: Result Comment: Refe rence Range: Male: <5 Female: Non: <5 1 - 7 days : 5 - 50 1 - 2 weeks: 50 - 500 2 - 3 weeks: 100 - 5000 3 - 4 weeks: 500 - 10,000 4 - 5 weeks: 1000 - 50,000 5 - 6 weeks: 10,000 - 100,000 6 - 8 weeks: 15,000 - 200,000 2 - 3 months: 10,000 - 100,000 2ND TRIMESTER 3000-50,000 3RD TRIMESTER 1000-50,000 Performed By: #### 2 [id number] #### [facility],[address] [place] [address] Chlamydia trachomatis rRNA d etection by probe and target amplification methodOrdered By: Bessie Mansfield on 06-03-2023 C. trachomatis rRNA CUCO+probe Ql (Unsp spec) Negative Negative Gram stain for investigation of transfusion reactionOrdered By: Bessie Mansfield on 06-03-2023 Microscopic observation Gram stain Nom (Unsp spec) Laboratory - Microbiology an d Antimicrobial susceptibilityOrdered By: Bessie Mansfield on 06-03-2023 N. gonorrhoeae DNA CUCO+probe Ql (Unsp spec) Negative Negative Comment on above: Performed at: =[address] [id number] Director: Tracie Mackenzie MD, Phone: [phone] No Panel InformationOrdered By: Bessie Mansfield on 06-03-2023 Genital Culture Izzy spp No Panel Informationon 06-03 POC Bacterial Vaginitis (Rapid) Negative POC Trichomonas (Rapid) Negative [facility] Basophil percentageOrdered B y: Jenny So on 04-15-2023 Testosterone [Mass/Vol] 35 ng/dL 13-71 [facility] Comment on above: Verified by repeat analysis Free testosterone percentage Ordered By: Jenny So on 04-15-2023 Testosterone Free/Testosterone.total [Mass fraction] 2.03 % 0.50-2.80 Laboratory - Chemistry and C hemistry - challengeOrdered By: Jenny So on 04-15-2023 Free T4 [Mass/Vol] 1.21 ng/dL 0.76-1.46 [facility] No Panel InformationOrdered By: Jenny So on 04-15-2023 Miscellaneous Test See comment [facility] Comment on above: Sent directly to [facility] per ordering physician. Dehydroepiandrosterone Sulfate 292.0 ug/dL 84.8-378.0 Comment on above: Performed at: - [facility] [address] [id number] Director: Herminio Nash PhD, Phone: [phone] at: openPeople - [facility] [address] [id number] Director: Chris Hernandez MD, Phone: [phone] Free Triiodothyronine (T3) pg/dL 3.2 pg/mL 2.18-3.98 Thyroid Stimulating Hormone (TSH) 1.14 uIU/mL 0.358-3.74 Serum or plasma 17-hydroxypr ogesterone measurement (mass/volume)Ordered By: Jenny So on 04-15-2023 17-Hydroxyprogesterone [Mass/Vol] 40 ng/dL . Comment on above: Adult Female Follicu lar 15 - 70 Luteal 35 - 290 Serum or plasma calcitriol m easurement (mass/volume)Ordered By: Jenny So on 04-15-2023 1,25-dihydroxyvitamin D3 [Mass/Vol] 46.0 pg/mL 24.8-81.5 Comment on above: Performed at: [facility] [address] [id number] Director: Chris Hernandez MD, Phone: [phone] Serum or plasma testosterone free measurement (mass/volume)Ordered By: Jenny So on 04-15-2023 Testosterone Free [Mass/Vol] 0.71 ng/dL 0.10-0.85 Whole blood hemoglobin A1c/t otal hemoglobin ratio (mass fraction)Ordered By: Jenny So on 04-15-2023 HbA1c (Bld) [Mass fraction] 4.7 % 3.8-5.6 Comment on above: Normal < 5.7 % Predi abetic 5.7 - 6.4 % Diabetic >or= 6.5 % Please note range changes. Cervical or vagninal specime n microscopic examination by cytology stain (reported asOrdered By: Jenny So on 03-25-2023 Cytology report Cyto stain Doc (Cvx/Vag) Comment . Comment on above: The Pap smear is a s creening test designed to aid in thedetection of premalignant and malignant conditions of theuterine cervix. It is not a diagnostic procedure andshould not be used as the sole means of detecting cervicalcancer. Both false-positive and false-negative reports dooccur. Chlamydia trachomatis rRNA d etection by probe and target amplification methodOrdered By: Jenny So on 03-25-2023 C. trachomatis rRNA CUCO+probe Ql (Unsp spec) Negative Negative Laboratory - CytologyOrdered By: Jenny So on 03-25-2023 Esl Instructor Cyto stain Nom (Cvx/Vag) [ID] Comment . Comment on above: Porsha Valentine, Cartridge Gauger (ASCP) Laboratory - Microbiology an d Antimicrobial susceptibilityOrdered By: Jenny So on 03-25-2023 N. gonorrhoeae DNA CUCO+probe Ql (Unsp spec) Negative Negative Comment on above: Performed at: =G - [facility] [address] [id number] Director: Tracie Mackenzie MD, Phone: [phone] Laboratory - Miscellaneous t estsOrdered By: Jenny So on 03-25-2023 Service comment (Unsp spec) [Interp] Comment . Comment on above: This liquid based Th inPrep(R) pap test was screened withthe use of an image guided system. Service comment (Unsp spec) [Interp] . . No Panel InformationOrdered By: Jenny So on 03-25-2023 Human Papillomavirus Screen Comment . Comment on above: The HPV DNA reflex c franklin were not met with this specimenresult therefore, no HPV testing was performed.Performed at: - [facility] [address] [id number] Director: Tracie Mackenzie MD, Phone: [phone] Pathology report final diagnosis Narrative Comment . Comment on above: NEGATIVE FOR INTRAEP ITHELIAL LESION OR MALIGNANCY. Varicella Zoster IgGon 03-25 V. zoster IgG, Qual Positive Abnormal Negative [facility] Comment on above: Performed By: #### V ZVG2 #### [facility] Routine Lab [address] [place], [place] [id number] Varicella Zoster IgG 269.7 Index Value Normal [facility] Comment on above: Performed By: #### V ZVG2 #### [facility] Routine Lab [address] [place], [place] [id number] Laboratory - Chemistry and C hemistry - challengeon 11-21-2020 Bilirubin Ql (U) Negative Normal WUT.; WUT. Ketones Ql (U) Negative Normal WUT.; WUT. pH (U) 5.5 [pH] Normal WUT.; WUT. Specific gravity (U) [Rel density] >=1.030 Normal WUT.; WUT. Urobilinogen Qn (U) 0.2 e.u./dL Normal [employer] [facility]. Laboratory - Hematology and Cell countson 11-21-2020 Hemoglobin Ql (U) small Abnormal [employer].; [facility]. Laboratory - Specimen inform ationon 11-21-2020 Appearance (U) clear Normal WUT.; WUT. Color (U) dark Yellow Normal WUT.; WUT. Laboratory - Urinalysison Glucose Test strip (U) [Mass/Vol] Negative Normal WUT.; WUT. Leukocyte esterase Test strip Ql (U) trace Normal WUT.; WUT. Nitrite Ql (U) Negative Normal WUT.; WUT. Protein Ql (U) Negative Normal WUT.; WUT. Laboratory - Chemistry and C hemistry - challengeon 2018 Albumin [Mass/Vol] 4.2 g/dL Normal 3.6 - 5.1 g/dL [facility].; [facility], [facility] Albumin/Globulin [Mass ratio] 1.5 {ratio} Normal 1.0 - 2.5 [facility].; [facility] ALP [Catalytic activity/Vol] 112 U/L Normal 33 - 115 U/L [facility].; [facility]. ALT [Catalytic activity/Vol] 28 U/L Normal 6 - 29 U/L [facility].; [facility]. AST [Catalytic activity/Vol] 17 U/L Normal 10 - 30 U/L [facility].; [facility]. Bilirubin [Mass/Vol] 0.3 mg/dL Normal 0.2 - 1 .2 mg/dL [facility].; [facility]. Calcium [Mass/Vol] 9.3 mg/dL Normal 8.6 - 10. 2 mg/dL [facility].; [place] [employer] [facility]. Chloride [Moles/Vol] 104 mmol/L Normal 98 - 11 0 mmol/L [facility].; [facility]. CO2 [Moles/Vol] 25 mmol/L Normal 20 - 32 mmol/L [facility].; [facility]. Creatinine [Mass/Vol] 0.59 mg/dL Normal 0.50 - 1.10 mg/dL [facility].; [place] [employer] [facility]. Free T3 [Mass/Vol] 3.8 pg/mL Normal 2.3 - 4.2 pg/mL [facility].; [place] [employer] [facility]. Free T4 [Mass/Vol] 0.9 ng/dL Normal 0.8 - 1.8 ng/dL [facility].; [place] [employer] [facility], [employer]. GFR/1.73 sq M.predicted among blacks MDRD (S/P/Bld) [Vol rate/Area] 152 {ML/MIN/1.73M2} Normal [facility]; [facility], [facility]. GFR/1.73 sq M.predicted MDRD (S/P/Bld) [Vol rate/Area] 131 {ML/MIN/1.73M2} Normal [facility].; [facility], [facility] Globulin (S) [Mass/Vol] 2.9 g/dL Normal 1.9 - 3.7 g/ dL [facility], [facility].; [facility], [facility] Glucose [Mass/Vol] 102 mg/dL Abnormal 65 - 99 mg/dL [facility].; [facility], [facility]. Potassium [Moles/Vol] 3.7 mmol/L Normal 3.5 - 5.3 mmol/L [facility].; [facility], [facility]. Protein [Mass/Vol] 7.1 g/dL Normal 6.1 - 8.1 g/dL [facility].; [facility], [facility] Sodium [Moles/Vol] 138 mmol/L Normal 135 - 146 mmol/L [facility].; [facility], [facility]. TSH Qn 1.38 m[IU]/L Normal 0.40 - 4.50 {mIU/L} [facility].; [facility], [facility]. Urea nitrogen [Mass/Vol] 15 mg/dL Normal 7 - 25 mg/d L [facility].; [place] [employer] [facility], [facility]. Urea nitrogen/Creatinine [Mass ratio] 25.4 mg/mg Abnormal 6 - 22 [facility].; [place] [employer] [facility]. Laboratory - Hematology and Cell countson 2018 Basophils (Bld) [#/Vol] 30 {Cells}/uL Normal 0 - 200 {Cells}/uL [facility].; [place] [employer], [facility]. Basophils/100 WBC (Bld) 0.3 % Normal 0 - 1 % H [facility].; [facility], [facility]. Eosinophils (Bld) [#/Vol] 210 {Cells}/uL Normal 15 - 500 {Cells}/uL [facility], [facility].; [place] [employer] Eosinophils/100 WBC (Bld) 2.1 % Normal 0 - 4 % [facility].; [facility]. Erythrocyte distribution width (RBC) [Ratio] 14.7 % Normal 11.0 - 15.0 % [facility].; [facility], [facility]. HbA1c (Bld) [Mass fraction] 5.3 % Normal 0 - 5.6 % [facility], [facility].; [facility], [facility] Hematocrit (Bld) [Volume fraction] 41.1 % Normal 35.0 - 45.0 % [facility].; [facility], [facility]. Hemoglobin (Bld) [Mass/Vol] 13.6 g/dL Normal 11.7 - 15.5 g/dL [facility].; [facility], [facility]. Lymphocytes (Bld) [#/Vol] 2600 {Cells}/uL Normal 850 - 3900 {Cells}/uL [facility].; [facility], [facility]. Lymphocytes/100 WBC (Bld) 26.5 % Normal 12 - 47 % [facility].; [place] [employer], [facility]. MCH (RBC) [Entitic mass] 28.7 pg Normal 27.0 - 33.0 PG [facility].; [place] [employer], [facility]. MCHC (RBC) [Mass/Vol] 33.1 g/dL Normal 32.0 - 36.0 g/dL [facility].; [place] [employer], [facility]. MCV (RBC) [Entitic vol] 86.7 fL Normal 80.0 - 100.0 fL [facility].; [place] [employer] [facility], [facility]. Monocytes (Bld) [#/Vol] 770 {Cells}/uL Normal 20 0 - 950 {Cells}/uL [facility].; [place] [employer], [facility]. Monocytes/100 WBC (Bld) 7.8 % Normal 4 - 12 % [facility].; [facility], [facility]. Neutrophils (Bld) [#/Vol] 6210 {Cells}/uL Normal 1500 - 7800 {Cells}/uL [facility], [facility].; [place] [employer], [facility]. Neutrophils/100 WBC (Bld) 63.3 % Normal 40 - 75 % [facility].; [place] [employer] [facility], [employer]. Platelet mean volume (Bld) [Entitic vol] 11.9 fL Normal 7.5 - 12.5 fL [facility].; [employer], [employer]. Platelets (Bld) [#/Vol] 274 10*3/uL Normal 140 - 400 10*3/uL [employer] RBC (Bld) [#/Vol] 4.74 10*6/uL Normal 3.80 - 5.1 0 10*6/uL [employer] WBC (Bld) [#/Vol] 9.8 10*3/uL Normal 3.8 - 10.8 10*3/uL WUT.; WUT. Final Surgical Pathology Rep [facility] 10-20-2018 Final Surgical Pathology Report . Pathology Reports Accession: Collected Date/Time: Received Date/Time: Pathologist: [id number] 10/15/2018 08:12 EDT 10/18/2018 08:12 EDT MD JAYLENE ABREU Final Surgical Pathology Report DIAGNOSIS: GALLBLADDER, CHOLECYSTECTOMY - - CHOLELITHIASIS. - CHRONIC CHOLECYSTITIS. COMMENT: [facility] - A# [id number] CLINICAL INFORMATION: BILIARY COLIC SPECIMEN: A GALLBLADDER GROSS DESCRIPTION: Received in formalin labeled with patient's name is eight 9 x 2.8 x 2.7 cm gallbladder with an attached cystic duct. The serosa is purple and smooth. Opening shows an abundant amount of paste like green bile and multiple yellow irregular choleliths measuring up to 0.8 cm. The mucosa is franklin-red and velvety. The wall measures up to 0.3 cm in thickness. RS -1 Dictated by Germaine GILES ([facility]) MICROSCOPIC DESCRIPTION: Slides reviewed. 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 Baby A with dilated kidney and ureter. [...] MG tablet Take by mouth daily Vit w/Nl-Uougxkrfi-GW (PNV PO) Take 1 Tab by mouth daily citalopram (CELEXA) 20 MG tablet Take 20 mg by mouth daily No facility-administer ed encounter medications on file as of 04/14/2018. [...] CO2 Imaging: See above Assessment & Plan: Patty was seen today for fluid in kidney. 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 Pt plans to deliver at [place] with Dr. Schaffer. Grounds Caretaker is STATE MENTAL HEALTH FACILITYSusie [place]. Female fetus- names are Andreina and Stefania [...] time was spent counseling and coordinating care. Normal [facility] Video Technician Authentication Interface Message Text Patient was seen by [facility] due to unilateral UTDA2-3 (pyelectasis and hydroureter). The total patient time of the visit was 15 minutes, of which greater than 50% of the time was spent counseling and coordinating care. Normal [facility] Progress Noteon 01-11-2018 Video Technician Authentication Interface Message Text [facility] MATERNAL- MEDICINE CONSULT Referring/Requestin g Provider: Amee Schaffer MD PCP: No Primary Care, MD Gretta CHIEF COMPLAINT: Dichorionic twins HISTORY OF PRESENT ILLNESS: Patty is a 22 y.o. female at 21w0d referred for a Maternal- Medicine consultation regarding her history of a dichorionic diamniotic twin gestation. She denies any obstetric complaints today and reports appropriate movement. Patty had an elevated early 1 hour GCT [...] MEDS: Current Outpatient Prescriptions Medication Sig Vit w/Tc-Ydhvpnipe-XY (PNV PO) Take 1 Tab by mouth [...] results found for any previous visit. IMPRESSION: Patty is a 22 y.o. female at 21w0d [...] absence of signs/symptoms of labor and hypertension, Patty should continue her routine work and physical [...] counseling and coordinating care. Sharan Jeffrey DO Normal [facility] Laboratory - Chemistry and C hemistry - challengeon 06-24-2017 Bilirubin Ql (U) small Abnormal [facility].; [facility], [facility]. Ketones Ql (U) Negative Normal [facility].; [facility], [facility]. pH (U) 5.5 [pH] Normal [facility], [facility].; [place] [employer] [facility] Specific gravity (U) [Rel density] 1.030 Abnormal [facility].; [employer] [facility], [facility]. Urobilinogen Qn (U) 8 mg/dL Abnormal [facility].; [facility], [facility]. Laboratory - Hematology and Cell countson 06-24-2017 Hemoglobin Ql (U) Negative Normal [facility].; [facility], [employer]. Laboratory - Microbiology an d Antimicrobial susceptibilityon 06-24-2017 Bacteria identified Cx Nom (U) Normal [facility].; [employer]. Laboratory - Specimen inform ationon 06-24-2017 Appearance (U) cloudy Abnormal [facility]; [place] Color (U) yellow Normal [facility] PetersburgBand[facility].; [employer] Specimen source Nom (Unsp spec) URINE-CLEAN CATCH Normal [facility] Petersburg[facility].; [employer]. Laboratory - Urinalysison Glucose Test strip (U) [Mass/Vol] Negative Normal [facility] [employer].; [employer]. Leukocyte esterase Test strip Ql (U) Negative Normal [place] [employer].; [employer]. Nitrite Ql (U) Negative Normal [place] [employer].; [employer] Protein Ql (U) Negative Normal [place] [facility].; [employer]. Laboratory - Chemistry and C hemistry - challengeon 02-24-2017 Free T3 [Mass/Vol] 3.7 pg/mL Normal 3.0 - 4.7 pg/mL [facility]; [employer]. Free T4 [Mass/Vol] 1.2 ng/dL Normal 0.8 - 1.4 ng/dL [place] [employer].; [employer]. TSH Qn 0.94 m[IU]/L Normal 0.40 - 4.50 {mIU/L} [place] [employer].; [employer]. Laboratory - Serology - non- microon 02-24-2017 TPO Ab Qn 1 [IU]/mL Normal [place] [employer]; [employer]. Laboratory - Microbiology an d Antimicrobial susceptibilityon 10-16-2016 S. pyogenes Ag EIA Ql (Throat) Negative Normal [employer]; [employer]. No Panel Informationon 10-16 MONOSPOT TEST (IN HOUSE) Negative Normal [place] [employer].; [employer]. Laboratory - Chemistry and C hemistry - challengeon 07-14-2016 Beta HCG ( test) Ql (U) Negative Normal [place] [employer].; [employer]. Laboratory - Microbiology an d Antimicrobial susceptibilityon 07-14-2016 C. trachomatis rRNA CUCO+probe Ql (Unsp spec) Not detected Normal [facility]; [employer] N. gonorrhoeae rRNA CUCO+probe Ql (Unsp spec) Not detected Normal [place] [employer]; [employer] Laboratory - Chemistry and C hemistry - challengeon 04-09-2016 HCG.beta subunit Qn m[IU]/mL [facility]; [place] [employer] Laboratory - Chemistry and C hemistry - challengeon 04-02-2016 Beta HCG ( test) Ql (U) Negative Normal [facility]; [employer] Laboratory - Microbiology an d Antimicrobial susceptibilityon 04-02-2016 C. trachomatis rRNA CUCO+probe Ql (Unsp spec) Detected Abnormal [facility]; [employer] N. gonorrhoeae rRNA CUCO+probe Ql (Unsp spec) Not detected Normal [place] [employer] [facility]; [employer]. No Panel Informationon 12-02 SKIN TEST INTRADERMAL TB Negative Normal [facility]; [employer] No Panel Informationon 11-25 SKIN TEST INTRADERMAL TB Negative Normal [place] [employer]; [employer] Laboratory - Chemistry and C hemistry - challengeon 12-25-2011 Bilirubin Ql (U) Negative Normal [facility]; [employer] Ketones Ql (U) Negative Normal [place] [employer]; [employer]. Lipase [Catalytic activity/Vol] 14 U/L Normal 7 - 60 U/L [place] [employer]; [employer] pH (U) 5.0 [pH] Normal 4.6 - 8.0 [place] [employer]; [employer] Specific gravity (U) [Rel density] >=1.030 Normal 1.001 - 1.025 [place] [employer]; [employer] Laboratory - Hematology and Cell countson 12-25-2011 Basophils (Bld) [#/Vol] 50 {Cells}/uL Normal 0 - 200 {Cells}/uL [place] [employer].; [place] [employer], [facility]. Basophils/100 WBC (Bld) 0 % Normal 0 - 2 % H [facility].; [facility], [facility]. Eosinophils (Bld) [#/Vol] 550 {Cells}/uL Abnormal 15 - 500 {Cells}/uL [facility], [facility].; [place] [employer] [facility], [facility]. Eosinophils/100 WBC (Bld) 5 % Normal 0 - 6 % [facility] Petersburg[facility].; [place] [employer] [facility], [facility]. Erythrocyte distribution width (RBC) [Ratio] 12.8 % Normal 11.0 - 15.0 % [facility] Petersburg[facility].; [place] [employer] [facility], [facility]. Hematocrit (Bld) [Volume fraction] 42.3 % Normal 34.0 - 46.0 % [facility], [facility].; [facility], [facility]. Hemoglobin (Bld) [Mass/Vol] 14.3 g/dL Normal 11.5 - 15.3 g/dL [facility], [facility].; [place] [employer], [facility]. Hemoglobin Ql (U) Negative Normal [facility] Petersburg[facility].; [place] [employer] [facility], [facility]. Lymphocytes (Bld) [#/Vol] 2780 {Cells}/uL Normal 1200 - 5200 {Cells}/uL [facility] Petersburg[facility].; [place] [employer], [facility]. Lymphocytes/100 WBC (Bld) 26 % Normal 20 - 60 % [facility], [facility].; [place] [employer], [facility]. MCH (RBC) [Entitic mass] 32.0 pg Normal 25.0 - 35.0 PG [facility] PetersburgTake[facility].; [place] [employer], [facility]. MCHC (RBC) [Mass/Vol] 33.7 g/dL Normal 31.0 - 36.0 g/dL [facility] Petersburg[facility].; [place] [employer], [facility]. MCV (RBC) [Entitic vol] 94.8 fL Normal 78.0 - 98.0 fL [place] [employer] [facility].; [place] [employer] [facility], [facility]. Monocytes (Bld) [#/Vol] 970 {Cells}/uL Abnormal 20 0 - 900 {Cells}/uL [facility], [facility].; [employer], [facility]. Monocytes/100 WBC (Bld) 9 % Normal 0 - 10 % H [facility].; [employer], [facility]. Neutrophils (Bld) [#/Vol] 6250 {Cells}/uL Normal 1800 - 8000 {Cells}/uL [place] [employer].; [employer], [employer]. Neutrophils/100 WBC (Bld) 59 % Normal 40 - 70 % [place] [employer].; [employer] Platelets (Bld) [#/Vol] 239 10*3/uL Normal 140 - 400 10*3/uL [place] [employer] [facility].; [employer] RBC (Bld) [#/Vol] 4.46 10*6/uL Normal 3.80 - 5.1 0 10*6/uL [employer].; [employer], [employer]. WBC (Bld) [#/Vol] 10.6 10*3/uL Normal 4.5 - 13.0 10*3/uL [place] [employer], [employer].; [employer], [employer]. Laboratory - Specimen inform ationon 12-25-2011 Appearance (U) Clear Normal [place] [facility].; [employer]. Color (U) Yellow Normal [place] [employer].; [employer], [employer]. Laboratory - Urinalysison Glucose Test strip (U) [Mass/Vol] Negative Normal [place] [employer].; [employer] Leukocyte esterase Test strip Ql (U) Negative Normal [place] [employer].; [employer] Nitrite Ql (U) Negative Normal [place] [employer].; [employer], [employer]. Protein Ql (U) Negative Normal [place] [employer].; [employer], [employer]. No Panel Informationon 12-24 UA - UROBILINOGEN 0.2 mg/dL Normal [employer].; [employer], [employer]. Vital Signs Date Time Vital Sign Value Performing Clinician Facility 12-06-2024 15:34-0400 Body height 160.02 cm [employer] Work Phone: 12-06-2024 15:34-0400 Body mass index (BMI) [Ratio] 49.8 kg/m2 Louise Winslow PA-C Work Phone: 12-06-2024 15:34-0400 Body weight 127.51 kg Louise Winslow PA-C Work Phone: 12-06-2024 15:34-0400 Diastolic blood pressure 72 mm[Hg] Louise Winslow PA-C Work Phone: 12-06-2024 15:34-0400 Systolic blood pressure 126 mm[Hg] Louise Winslow PA-C Work Phone: 11-15-2024 13:35-0400 Body height 160.02 cm Louise Winslow PA-C Work Phone: 11-15-2024 13:35-0400 Body mass index (BMI) [Ratio] 48.4 kg/m2 Louise Winslow PA-C Work Phone: 11-15-2024 13:35-0400 Body weight 124.05 kg Louise Winslow PA-C Work Phone: 11-15-2024 13:35-0400 Diastolic blood pressure 78 mm[Hg] Louise Winslow PA-C Work Phone: 11-15-2024 13:35-0400 Systolic blood pressure 118 mm[Hg] Louise Winslow PA-C Work Phone: 10-17-2024 15:36-0400 Body height 160.02 cm Louise [employer] PA-C Work Phone: 10-17-2024 15:36-0400 Body mass index (BMI) [Ratio] 49.3 kg/m2 Louise Winslow PA-C Work Phone: 10-17-2024 15:36-0400 Body weight 126.21 kg Louise Winslow PA-C Work Phone: 10-17-2024 15:36-0400 Diastolic blood pressure 74 mm[Hg] Louise Winslow PA-C Work Phone: 10-17-2024 15:36-0400 Systolic blood pressure 120 mm[Hg] Louise Winslow PA-C Work Phone: 09-19-2024 14:11-0400 Body height 160.02 cm Louise Winslow PA-C Work Phone: 09-19-2024 14:11-0400 Body mass index (BMI) [Ratio] 48.3 kg/m2 Louise Winslow PA-C Work Phone: 09-19-2024 14:11-0400 Body weight 123.83 kg Louise Winslow PA-C Work Phone: 09-19-2024 14:11-0400 Diastolic blood pressure 78 mm[Hg] Louise Winslow PA-C Work Phone: 09-19-2024 14:11-0400 Systolic blood pressure 122 mm[Hg] Louise Winslow PA-C Work Phone: 08-24-2024 14:44-0400 Body mass index (BMI) [Ratio] 47.7 kg/m2 Louise Winslow PA-C Work Phone: 08-24-2024 14:44-0400 Body weight 122.18 kg Louise Winslow PA-C Work Phone: 08-24-2024 14:44-0400 Diastolic blood pressure 84 mm[Hg] Louise Winslow PA-C Work Phone: 08-24-2024 14:44-0400 Systolic blood pressure 125 mm[Hg] Louise Winslow PA-C Work Phone: 08-04-2024 14:29-0400 Body height 160.02 cm Louise Winslow PA-C Work Phone: 08-04-2024 14:29-0400 Body mass index (BMI) [Ratio] 47.9 kg/m2 Louise Winslow PA-C Work Phone: 08-04-2024 14:29-0400 Body weight 122.64 kg Louise Winslow PA-C Work Phone: 07-29-2024 14:29-0400 Body height 160.02 cm Louise Winslow PA-C Work Phone: 07-29-2024 14:25-0400 Body mass index (BMI) [Ratio] 47.7 kg/m2 Louise Winslow PA-C Work Phone: 07-29-2024 14:25-0400 Body weight 122.12 kg Louise Winslow PA-C Work Phone: 07-29-2024 14:25-0400 Diastolic blood pressure 81 mm[Hg] Louise Winslow PA-C Work Phone: 07-29-2024 14:25-0400 Systolic blood pressure 125 mm[Hg] Louise Winslow PA-C Work Phone: 07-21-2024 09:52-0400 Body mass index (BMI) [Ratio] 47.8 kg/m2 Louise [employer] PA-C Work Phone: 07-21-2024 09:52-0400 Body weight 122.58 kg Louise Winslow PA-C Work Phone: 07-21-2024 09:52-0400 Diastolic blood pressure 79 mm[Hg] Louise Winslow PA-C Work Phone: 07-21-2024 09:52-0400 Systolic blood pressure 122 mm[Hg] Louise Winslow PA-C Work Phone: 06-08-2024 08:58-0500 Body mass index (BMI) [Ratio] 46.9 kg/m2 [employer] Work Phone: 06-08-2024 08:58-0500 Body weight 120.2 kg Louise [employer] Work Phone: 06-08-2024 08:58-0500 Diastolic blood pressure 81 mm[Hg] [facility] Work Phone: 06-08-2024 08:58-0500 Systolic blood pressure 127 mm[Hg] [facility] PA-C Work Phone: 04-27-2024 09:50-0500 Body height 160.02 cm Ren Wright RN [facility] [employer] [facility].; [employer] [facility]. 04-27-2024 09:50-0500 Body mass index (BMI) [Ratio] 44.46 kg/m2 Ren Wright RN [facility].; [employer] [facility]. 04-27-2024 09:50-0500 Body surface area Derived from formula 2.13 m2 Ren Wright RN [facility] Petersburg[facility].; [employer], [facility]. 04-27-2024 09:50-0500 Body weight 113.85 kg Ren Wright RN [place] [employer] [facility].; [employer] [facility]. 04-27-2024 09:50-0500 Diastolic blood pressure 76 mm[Hg] Ren Wright RN [employer] [facility].; [employer]. Comment on above: Patient Position: Sitting; Cuff Location : Left Arm; Cuff Size: Large 04-27-2024 09:50-0500 Heart rate 86 /min Ren Wright RN [employer] [facility].; [employer]. Comment on above: Pattern: Regular 04-27-2024 09:50-0500 Systolic blood pressure 115 mm[Hg] Ren Wright RN [place] [employer].; [employer]. Comment on above: Patient Position: Sitting; Cuff Location : Left Arm; Cuff Size: Large 12-22-2023 11:02-0400 Body height 160.02 cm Ren Wright RN [place] [facility].; [employer]. 12-22-2023 11:02-0400 Body mass index (BMI) [Ratio] 46.23 kg/m2 Ren Wright RN [place] [employer].; [employer]. 12-22-2023 11:020400 Body surface area Derived from formula 2.17 m2 Ren Wright RN [place] [employer].; [employer]. 12-22-2023 11:020400 Body weight 118.39 kg Ren Wright RN [employer].; [employer]. 12-22-2023 11:02-0400 Diastolic blood pressure 81 mm[Hg] Ren Wright RN [place] [employer].; [employer]. Comment on above: Patient Position: Sitting; Cuff Location : Left Arm; Cuff Size: Standard 12-22-2023 11:02-0400 Heart rate 81 /min Ren Wright RN [employer].; [employer]. Comment on above: Pattern: Regular 12-22-2023 11:02-0400 Systolic blood pressure 118 mm[Hg] Ren Wright RN [place] [employer].; [employer]. Comment on above: Patient Position: Sitting; Cuff Location : Left Arm; Cuff Size: Standard 08-24-2023 10:030400 Body height 160.02 cm Aracelis Dueñas LPN [employer].; [employer]. 08-24-2023 10:03-0400 Body mass index (BMI) [Ratio] 44.29 kg/m2 Aracelis Dueñas LPN [employer].; [employer]. 08-24-2023 10:030400 Body surface area Derived from formula 2.13 m2 Aracelis Dueñas LPN [employer].; [employer]. 08-24-2023 10:030400 Body weight 113.4 kg Aracelis Dueñas LPN [employer].; [facility], [facility]. 08-24-2023 10:03-0400 Diastolic blood pressure 74 mm[Hg] Aracelis Dueñas LPN [facility].; [facility], [facility]. Comment on above: Patient Position: Sitting; Cuff Location : Left Arm; Cuff Size: Standard 08-24-2023 10:03-0400 Heart rate 80 /min Aracelis Dueñas LPN [facility], [facility].; [facility], [facility]. Comment on above: Pattern: Regular 08-24-2023 10:03-0400 Systolic blood pressure 105 mm[Hg] Aracelis Dueñas LPN [facility], [facility].; [facility], [facility]. Comment on above: Patient Position: Sitting; Cuff Location : Left Arm; Cuff Size: Standard 06-03-2023 14:43-0500 Body height 160.02 cm PA[employer] Work Phone: 06-03-2023 14:43-0500 Body mass index (BMI) [Ratio] 48.2 kg/m2 [employer] Work Phone: 06-03-2023 14:43-0500 Body weight 123.43 kg PA[employer] Work Phone: 06-03-2023 14:43-0500 Diastolic blood pressure 82 mm[Hg] PA[employer] Work Phone: 06-03-2023 14:43-0500 Systolic blood pressure 132 mm[Hg] PA[employer] Work Phone: 04-27-2023 10:53-0500 Body height 160.02 cm Mary Haji MA [facility], [facility].; [facility], [facility]. 04-27-2023 10:53-0500 Body mass index (BMI) [Ratio] 50 kg/m2 Mary Haji MA [facility], [facility].; [facility], [facility]. 04-27-2023 10:53-0500 Body surface area Derived from formula 2.24 m2 Mary Haji MA [facility], [facility].; [facility], [facility]. 04-27-2023 10:53-0500 Body weight 128.03 kg Mary Haji MA [facility], [facility].; [facility], [facility]. 04-27-2023 10:53-0500 Diastolic blood pressure 84 mm[Hg] Mary Haji MA [facility], [facility].; [facility], [facility]. Comment on above: Patient Position: Sitting; Cuff Location : Left Arm; Cuff Size: Standard 04-27-2023 10:53-0500 Heart rate 88 /min Mary Haji MA [facility], [facility].; [facility], [facility]. Comment on above: Pattern: Regular 04-27-2023 10:53-0500 Systolic blood pressure 127 mm[Hg] Mary Haji MA [facility].; [facility], [facility]. Comment on above: Patient Position: Sitting; Cuff Location : Left Arm; Cuff Size: Standard 03-25-2023 09:39-0500 Body height 160.02 cm [employer] Work Phone: 03-25-2023 09:37-0500 Body mass index (BMI) [Ratio] 49.6 kg/m2 [employer] Work Phone: 03-25-2023 09:37-0500 Body weight 127 kg PA[employer]C [employer] Work Phone: 03-25-2023 09:37-0500 Diastolic blood pressure 84 mm[Hg] PA[employer]C [employer] Work Phone: 03-25-2023 09:37-0500 Systolic blood pressure 120 mm[Hg] [employer] Work Phone: 11-21-2020 13:59-0400 Body height 160.02 cm Veronica Abdul LPN [facility], [facility].; [facility] 11-21-2020 13:59-0400 Body mass index (BMI) [Ratio] 50.84 kg/m2 Veronica Abdul LPTgh [place], [facility].; [place] [employer] [facility]. 11-21-2020 13:59-0400 Body surface area Derived from formula 2.25 m2 Veronica Abdul [facility], [facility].; [place] [employer] [facility], [facility]. 11-21-2020 13:59-0400 Body weight 130.18 kg Veronica Abdul [facility], [facility].; [place] [employer] [facility]. 11-21-2020 13:59-0400 Diastolic blood pressure 75 mm[Hg] Veronica Abdul [facility], [facility].; [employer] [facility], [employer]. Comment on above: Patient Position: Sitting; Cuff Location : Left Arm; Cuff Size: Standard 11-21-2020 13:59-0400 Heart rate 102 /min Veronica Abdul [facility], [facility].; [employer], [employer]. Comment on above: Pattern: Regular 11-21-2020 13:59-0400 Systolic blood pressure 112 mm[Hg] Veronica Abdul [facility], [facility].; [place] [employer] [facility], [employer]. Comment on above: Patient Position: Sitting; Cuff Location : Left Arm; Cuff Size: Standard 08-09-2019 14:22-0400 Body height 160.02 cm Maeveteresafranklyn Virginie Trent [facility], [facility].; [employer], [facility]. 08-09-2019 14:22-0400 Body mass index (BMI) [Ratio] 52.26 kg/m2 Jerry Newman [facility], [facility].; [place] [employer], [employer]. 08-09-2019 14:22-0400 Body surface area Derived from formula 2.28 m2 Jerry Newman [employer] [facility], [facility].; [employer], [employer]. 08-09-2019 14:22-0400 Body temperature 99.4 [degF] Jerry Newman [facility], [facility].; [employer]. Comment on above: Method: Tympanic 08-09-2019 14:22-0400 Body weight 133.81 kg Jerry Newman [facility], [facility].; [employer]. 08-09-2019 14:22-0400 Diastolic blood pressure 76 mm[Hg] Neilee L Vess [employer].; [employer]. Comment on above: Patient Position: Sitting; Cuff Location : Left Arm; Cuff Size: Standard 08-09-2019 14:22-0400 Heart rate 97 /min Neilee L Vess [employer] [facility], Inc.; [employer]. Comment on above: Pattern: Regular 08-09-2019 14:22-0400 Systolic blood pressure 131 mm[Hg] Neilee L Vess [employer] [place] [employer].; [employer], [employer]. Comment on above: Patient Position: Sitting; Cuff Location : Left Arm; Cuff Size: Standard 08-01-2019 11:25-0400 Body height 160.02 cm Louise Moon PA-C Work Phone: [place] [employer] [facility].; [employer] [facility]. 06-23-2019 08:18-0500 Body height 160.02 cm Neilee L Vess [employer] [place] [employer] [facility], Inc.; [employer], [employer]. 06-23-2019 08:18-0500 Body mass index (BMI) [Ratio] 51.72 kg/m2 Neilee L Vess [employer].; [employer], [employer]. 06-23-2019 08:18-0500 Body surface area Derived from formula 2.27 m2 Neilee L Vess [employer] [facility], [facility].; [employer]. 06-23-2019 08:18-0500 Body temperature 99.7 [degF] Neilee L Vess [employer].; [employer]. Comment on above: Method: Tympanic 06-23-2019 08:18-0500 Body weight 132.45 kg Neilee L Vess [employer], [employer].; [employer], [employer]. 06-23-2019 08:18-0500 Diastolic blood pressure 74 mm[Hg] Neilee L Vess [employer]. Comment on above: Patient Position: Sitting; Cuff Location : Left Arm; Cuff Size: Standard 06-23-2019 08:18-0500 Heart rate 99 /min Neilee L Vess [employer] [place] [employer] [facility], Inc.; [employer], [employer]. Comment on above: Pattern: Regular 06-23-2019 08:18-0500 Inhaled oxygen concentration 20 % Neilee L Vess [employer] [facility], Inc.; [employer] Comment on above: Room air 06-23-2019 08:18-0500 Inhaled oxygen concentration 21 % Neilee L Vess [employer] [facility], Inc.; [employer], [employer]. Comment on above: Room air 06-23-2019 08:18-0500 SaO2% (BldA) [Mass fraction] 98 % Neilee L Vess [employer] [facility], [facility].; [employer], [employer]. 06-23-2019 08:18-0500 Systolic blood pressure 135 mm[Hg] Neilee L Vess [employer] [place] [employer] [facility], Inc.; [employer], [employer]. Comment on above: Patient Position: Sitting; Cuff Location : Left Arm; Cuff Size: Standard 05-23-2019 14:05-0500 Body height 160.02 cm Neilee L Vess [employer] [facility], Inc.; [employer], [employer]. 05-23-2019 14:05-0500 Body mass index (BMI) [Ratio] 51.72 kg/m2 Neilee L Vess [employer] [place] [employer] [facility], Inc.; [employer], [employer]. 05-23-2019 14:05-0500 Body surface area Derived from formula 2.27 m2 Neilee L Vess [employer] [place] [employer] [facility], Inc.; [employer], [employer]. 05-23-2019 14:05-0500 Body weight 132.45 kg Neilee L Vess [employer] [place] [employer] [facility], [facility].; [employer], [employer]. 05-23-2019 14:05-0500 Diastolic blood pressure 76 mm[Hg] Neilee L Vess [employer] [place] [employer], [employer].; [employer]. Comment on above: Patient Position: Sitting; Cuff Location : Right Arm; Cuff Size: Standard 05-23-2019 14:05-0500 Heart rate 96 /min Neilee L Vess [employer] [place] [employer] [facility], [employer].; [employer]. Comment on above: Pattern: Regular 05-23-2019 14:05-0500 Systolic blood pressure 124 mm[Hg] Neilee L Vess [employer]. Comment on above: Patient Position: Sitting; Cuff Location : Right Arm; Cuff Size: Standard 02-14-2019 08:50-0400 Body height 160.02 cm Neilee L Vess [employer]. 02-14-2019 08:50-0400 Body mass index (BMI) [Ratio] 50.66 kg/m2 Neilee L Vess [employer].; [employer]. 02-14-2019 08:50-0400 Body surface area Derived from formula 2.25 m2 Neilee L Vess [employer].; [employer]. 02-14-2019 08:50-0400 Body weight 129.73 kg Neilee L Vess [employer].; [employer]. 02-14-2019 08:50-0400 Diastolic blood pressure 74 mm[Hg] Neilee L Vess [employer].; [employer]. Comment on above: Patient Position: Sitting; Cuff Location : Right Arm; Cuff Size: Standard 02-14-2019 08:50-0400 Heart rate 86 /min Neilee L Vess [employer]EL[employer], [employer].; WUT. Comment on above: Pattern: Regular 02-14-2019 08:50-0400 Systolic blood pressure 125 mm[Hg] Neilee L Vess [employer] DEVELOPER WUT.; WUT. Comment on above: Patient Position: Sitting; Cuff Location : Right Arm; Cuff Size: Standard 01-13-2019 08:14-0400 Body height 160.02 cm Neilee L Vess [employer] DEVELOPER WUT.; WUT. 01-13-2019 08:14-0400 Body mass index (BMI) [Ratio] 51.19 kg/m2 Neilee L Vess [employer] DEVELOPER WUT.; WUT. 01-13-2019 08:14-0400 Body surface area Derived from formula 2.26 m2 Neilee L Vess [employer]URE DEVELOPER [employer], [employer], [employer]. 01-13-2019 08:14-0400 Body weight 131.09 kg Neteresae Virginie Vess [employer]URE DEVELOPER [employer], [employer], [employer] 01-13-2019 08:14-0400 Diastolic blood pressure 72 mm[Hg] Neilee L Vess [employer]URE DEVELOPER [employer], [employer] WUT. Comment on above: Patient Position: Sitting; Cuff Location : Right Arm; Cuff Size: Standard 01-13-2019 08:14-0400 Heart rate 79 /min Tiffaniee L Vess [employer]URE DEVELOPER [employer], [employer]. Comment on above: Pattern: Regular 01-13-2019 08:14-0400 Systolic blood pressure 115 mm[Hg] Maeveilee L Vess [employer]URE DEVELOPER [employer], [employer] WUT. Comment on above: Patient Position: Sitting; Cuff Location : Right Arm; Cuff Size: Standard 2018 14:54-0400 Body height 160.02 cm Brooke Heard RN [employer], [employer].; WUT. 2018 14:54-0400 Body mass index (BMI) [Ratio] 50.56 kg/m2 Brooke Heard RN [employer], [employer].; [employer], [employer] 2018 14:54-0400 Body surface area Derived from formula 2.25 m2 Brooke Heard RN [employer], [employer].; WUT. 2018 14:54-0400 Body temperature 99.2 [degF] Brooke Heard RN WUT.; WUT. Comment on above: Method: Tympanic 2018 14:54-0400 Body weight 129.46 kg Brooke Heard RN WUT.; WUT. 2018 14:54-0400 Diastolic blood pressure 83 mm[Hg] Brooke Heard RN WUT.; WUT. Comment on above: Patient Position: Sitting; Cuff Location : Left Arm; Cuff Size: Standard 2018 14:54-0400 Heart rate 107 /min Brooke Heard RN WUT.; WUT. Comment on above: Pattern: Regular 2018 14:54-0400 Systolic blood pressure 126 mm[Hg] Brooke Heard RN [employer].; WUT. Comment on above: Patient Position: Sitting; Cuff Location : Left Arm; Cuff Size: Standard 09-02-2018 07:57-0400 Body height 160.02 cm Brooke Heard RN [employer].; W[employer]. 09-02-2018 07:57-0400 Body mass index (BMI) [Ratio] 48.2 kg/m2 Brooke Heard RN [employer].; W[employer]. 09-02-2018 07:57-0400 Body surface area Derived from formula 2.2 m2 Brooke Heard RN [employer].; W[employer]. 09-02-2018 07:57-0400 Body temperature 99 [degF] Brooke Heard RN WUT.; WUT. Comment on above: Method: Tympanic 09-02-2018 07:57-0400 Body weight 123.42 kg Brooke Heard RN [employer].; W[employer]. 09-02-2018 07:57-0400 Diastolic blood pressure 84 mm[Hg] Brooke Heard RN [employer].; WUT. Comment on above: Patient Position: Sitting; Cuff Location : Left Arm; Cuff Size: Standard 09-02-2018 07:57-0400 Heart rate 89 /min Brooke Heard RN WUT.; WUT. Comment on above: Pattern: Regular 09-02-2018 07:57-0400 Systolic blood pressure 125 mm[Hg] Brooke Heard RN WUT.; WUT. Comment on above: Patient Position: Sitting; Cuff Location : Left Arm; Cuff Size: Standard 06-30-2018 11:25-0400 Body height 160.02 cm Brooke Heard RN [employer].; W[employer]. 06-30-2018 11:25-0400 Body mass index (BMI) [Ratio] 45.22 kg/m2 Brooke Heard RN [employer].; W[employer]. 06-30-2018 11:25-0400 Body surface area Derived from formula 2.15 m2 Brooke Heard RN [employer].; W[employer]. 06-30-2018 11:25-0400 Body temperature 99.5 [degF] Brooke Heard RN WUT.; WUT. Comment on above: Method: Tympanic 06-30-2018 [id number] Body weight 115.8 kg Brooke Heard RN [employer].; WUT. 06-30-2018 11:25-0400 Diastolic blood pressure 74 mm[Hg] Brooke Heard RN [employer].; W[employer]. Comment on above: Patient Position: Sitting; Cuff Location : Left Arm; Cuff Size: Standard 06-30-2018 11:25-0400 Heart rate 87 /min Brooke Heard RN WUT.; WUT. Comment on above: Pattern: Regular 06-30-2018 11:25-0400 Systolic blood pressure 125 mm[Hg] Brooke Heard RN WUT.; WUT. Comment on above: Patient Position: Sitting; Cuff Location : Left Arm; Cuff Size: Standard 08-04-2017 14:02-0400 Body height 160.02 cm Tiffaniee Virginie Newman AZURE DEVELOPER WUT.; W[employer]. 08-04-2017 14:02-0400 Body mass index (BMI) [Ratio] 44.29 kg/m2 Neilee L Vess [employer]URE DEVELOPER WUT.; [employer] 08-04-2017 14:02-0400 Body surface area Derived from formula 2.13 m2 Neteresae L Vess AZURE DEVELOPER WUT.; WUT. 08-04-2017 14:02-0400 Body weight 113.4 kg Neilee L Vess [employer]URE DEVELOPER WUT.; W[employer]. 08-04-2017 14:02-0400 Diastolic blood pressure 85 mm[Hg] Neilee L Vess [employer]URE DEVELOPER WUT.; WUT. Comment on above: Patient Position: Sitting; Cuff Location : Left Arm; Cuff Size: Standard 08-04-2017 14:02-0400 Heart rate 123 /min Neilee L Vess [employer]URE DEVELOPER WUT.; [employer] Comment on above: Pattern: Regular 08-04-2017 14:02-0400 Systolic blood pressure 140 mm[Hg] Neilee L Vess AZURE DEVELOPER WUT.; WUT. Comment on above: Patient Position: Sitting; Cuff Location : Left Arm; Cuff Size: Standard 06-24-2017 15:33-0500 Body temperature 98.8 [degF] Brooke Heard RN [employer].; WUT. Comment on above: Method: Tympanic 06-24-2017 15:33-0500 Body weight 109.94 kg Brooke Heard RN [employer].; W[employer]. 06-24-2017 15:33-0500 Diastolic blood pressure 93 mm[Hg] Brooke Heard RN [employer].; WUT. Comment on above: Patient Position: Sitting; Cuff Location : Left Arm; Cuff Size: Standard 06-24-2017 15:33-0500 Heart rate 92 /min Brooke Heard RN [employer].; WUT. Comment on above: Pattern: Regular 06-24-2017 15:33-0500 Systolic blood pressure 143 mm[Hg] Brooke Heard RN [employer].; W[employer]. Comment on above: Patient Position: Sitting; Cuff Location : Left Arm; Cuff Size: Standard 06-18-2017 15:36-0500 Body height 160.02 cm Brooke Heard RN [employer].; W[employer]. 06-18-2017 15:36-0500 Body mass index (BMI) [Ratio] 44.18 kg/m2 Brooke Heard RN [employer] W[employer]. 06-18-2017 15:36-0500 Body surface area Derived from formula 2.12 m2 Brooke Heard RN Terry [employer].; WUT. 06-18-2017 15:36-0500 Body temperature 98.6 [degF] Brooke Heard RN [employer].; WUT. Comment on above: Method: Tympanic 06-18-2017 15:36-0500 Body weight 113.13 kg Brooke Heard RN [employer].; W[employer]. 06-18-2017 15:36-0500 Diastolic blood pressure 71 mm[Hg] Brooke Heard RN [employer].; W[employer]. Comment on above: Patient Position: Sitting; Cuff Location : Left Arm; Cuff Size: Standard 06-18-2017 15:36-0500 Heart rate 75 /min Brooke Heard RN [employer].; WUT. Comment on above: Pattern: Regular 06-18-2017 15:36-0500 Systolic blood pressure 105 mm[Hg] Brooke Heard RN [employer].; WUT. Comment on above: Patient Position: Sitting; Cuff Location : Left Arm; Cuff Size: Standard 05-21-2017 15:29-0500 Body height 160.02 cm Brooke Heard RN [employer].; W[employer]. 05-21-2017 15:29-0500 Body mass index (BMI) [Ratio] 44.62 kg/m2 Brooke Heard RN [employer].; [employer]. 05-21-2017 15:29-0500 Body surface area Derived from formula 2.13 m2 Brooke Heard RN [employer].; W[employer]. 05-21-2017 15:29-0500 Body temperature 98.1 [degF] Brooke Heard RN [employer].; WUT. Comment on above: Method: Tympanic 05-21-2017 15:29-0500 Body weight 114.26 kg Brooke Herad RN [employer].; WUT. 05-21-2017 15:29-0500 Diastolic blood pressure 94 mm[Hg] Brooke Heard RN [employer].; WUT. Comment on above: Patient Position: Sitting; Cuff Location : Left Arm; Cuff Size: Standard 05-21-2017 15:29-0500 Heart rate 69 /min Brooke Heard RN [employer].; WUT. Comment on above: Pattern: Regular 05-21-2017 15:29-0500 Systolic blood pressure 136 mm[Hg] Brooke Heard RN [employer].; W[employer]. Comment on above: Patient Position: Sitting; Cuff Location : Left Arm; Cuff Size: Standard 03-25-2017 14:35-0500 Body height 160.02 cm Brooke Heard RN [employer].; W[employer]. 03-25-2017 14:35-0500 Body mass index (BMI) [Ratio] 43.31 kg/m2 Brooke Heard RN [employer].; [employer]. 03-25-2017 14:35-0500 Body surface area Derived from formula 2.11 m2 Brooke Heard RN [employer].; WUT. 03-25-2017 14:35-0500 Body temperature 98.8 [degF] Brooke Heard RN [employer].; WUT. Comment on above: Method: Tympanic 03-25-2017 14:35-0500 Body weight 110.91 kg Brooke Heard RN [employer].; WUT. 03-25-2017 14:35-0500 Diastolic blood pressure 73 mm[Hg] Brooke Heard RN [employer].; WUT. Comment on above: Patient Position: Sitting; Cuff Location : Left Arm; Cuff Size: Standard 03-25-2017 14:35-0500 Heart rate 91 /min Brooke Heard RN [employer].; WUT. Comment on above: Pattern: Regular 03-25-2017 14:35-0500 Systolic blood pressure 132 mm[Hg] Brooke Heard RN [place] [employer], [employer].; WUT. Comment on above: Patient Position: Sitting; Cuff Location : Left Arm; Cuff Size: Standard 02-24-2017 14:19-0500 Body height 160.02 cm Neilee L Vess AZURE DEVELOPER [employer] W[employer]. 02-24-2017 14:19-0500 Body mass index (BMI) [Ratio] 43.93 kg/m2 Neilee L Vess AZURE DEVELOPER [employer], [employer].; [employer]. 02-24-2017 14:19-0500 Body surface area Derived from formula 2.12 m2 Neilee L Vess AZURE DEVELOPER [employer], [employer].; W[employer]. 02-24-2017 14:19-0500 Body weight 112.49 kg Neilee L Vess AZURE DEVELOPER [employer], [employer].; W[employer]. 02-24-2017 14:19-0500 Diastolic blood pressure 74 mm[Hg] Neilee L Vess AZURE DEVELOPER [employer], [employer].; WUT. Comment on above: Patient Position: Sitting; Cuff Location : Right Arm; Cuff Size: Standard 02-24-2017 14:19-0500 Heart rate 127 /min Neilee L Vess AZURE DEVELOPER [employer], [employer].; W[employer]. Comment on above: Pattern: Regular 02-24-2017 14:19-0500 Systolic blood pressure 133 mm[Hg] Neilee L Vess AZURE DEVELOPER [employer], [employer].; WUT. Comment on above: Patient Position: Sitting; Cuff Location : Right Arm; Cuff Size: Standard 10-16-2016 14:54-0400 Body height 160.02 cm [employer] Work Phone: [employer].; W[employer]. 10-16-2016 14:54-0400 Body mass index (BMI) [Percentile] Per age and sex 99 % [employer] Work Phone: [employer].; [employer] 10-16-2016 14:54-0400 Body mass index (BMI) [Ratio] 42.51 kg/m2 [employer] Technologiestain CNM Work Phone: [employer]; WUT. 10-16-2016 14:54-0400 Body surface area Derived from formula 2.09 m2 [employer] Technologiestain CNM Work Phone: [employer]; [employer]. 10-16-2016 14:54-0400 Body temperature 99.6 [degF] [employer] Technologiestain CNM Work Phone: [employer]; WUT. Comment on above: Method: Tympanic 10-16-2016 14:54-0400 Body weight 108.86 kg [employer] CNM Work Phone: [employer]; WUT. 10-16-2016 14:54-0400 Diastolic blood pressure 74 mm[Hg] Dreamsoft Technologiestain CNM Work Phone: [employer]; WUT. Comment on above: Patient Position: Sitting; Cuff Location : Right Arm; Cuff Size: Large 10-16-2016 14:54-0400 Heart rate 107 /min [employer] CNM Work Phone: [employer]; W[employer]. Comment on above: Pattern: Regular 10-16-2016 14:54-0400 Inhaled oxygen concentration 20 % Dreamsoft Technologiestain CNM Work Phone: [employer]; [employer] Comment on above: Room air 10-16-2016 14:54-0400 Inhaled oxygen concentration 21 % [employer]soft Technologiestain CNM Work Phone: [employer]; WUT. Comment on above: Room air 10-16-2016 14:54-0400 SaO2% (BldA) [Mass fraction] 99 % Dreamsoft Technologiestain CNM Work Phone: [employer]; [employer] 10-16-2016 14:54-0400 Systolic blood pressure 112 mm[Hg] Colleen Cedillo CNM Work Phone: [employer]; WUT. Comment on above: Patient Position: Sitting; Cuff Location : Right Arm; Cuff Size: Large 07-14-2016 11:06-0400 Body height 160.02 cm Brooke Heard RN WUT.; WUT. 07-14-2016 11:06-0400 Body mass index (BMI) [Percentile] Per age and sex 99 % Brooke Heard RN WUT.; WUT. 07-14-2016 11:06-0400 Body mass index (BMI) [Ratio] 42.74 kg/m2 Brooke Heard RN WUT.; WUT. 07-14-2016 11:06-0400 Body surface area Derived from formula 2.09 m2 Brooke Heard RN WUT.; WUT. 07-14-2016 11:06-0400 Body temperature 99.4 [degF] Brooke Heard RN WUT.; WUT. Comment on above: Method: Tympanic 07-14-2016 11:06-0400 Body weight 109.45 kg Brooke Heard RN WUT.; WUT. 07-14-2016 11:06-0400 Diastolic blood pressure 82 mm[Hg] Brooke Heard RN WUT.; WUT. Comment on above: Patient Position: Sitting; Cuff Location : Left Arm; Cuff Size: Standard 07-14-2016 11:06-0400 Heart rate 106 /min Brooke Heard RN WUT.; WUT. Comment on above: Pattern: Regular 07-14-2016 11:06-0400 Systolic blood pressure 151 mm[Hg] Brooke Heard RN WUT.; WUT. Comment on above: Patient Position: Sitting; Cuff Location : Left Arm; Cuff Size: Standard 04-02-2016 15:04-0500 Body height 160.02 cm Brooke Heard RN [employer].; [employer]. 04-02-2016 15:04-0500 Body mass index (BMI) [Percentile] Per age and sex 99 % Brooke Heard RN [employer].; [employer]. 04-02-2016 15:04-0500 Body mass index (BMI) [Ratio] 43.58 kg/m2 Brooke Heard RN [employer].; [employer]. 04-02-2016 15:04-0500 Body surface area Derived from formula 2.11 m2 Brooke Heard RN [employer].; [employer]. 04-02-2016 15:04-0500 Body temperature 99.5 [degF] Brooke Heard RN WUT.; WUT. Comment on above: Method: Tympanic 04-02-2016 15:04-0500 Body weight 111.59 kg Brooke Heard RN [employer].; [employer]. 04-02-2016 15:04-0500 Diastolic blood pressure 86 mm[Hg] Brooke Heard RN WUT.; WUT. Comment on above: Patient Position: Sitting; Cuff Location : Left Arm; Cuff Size: Standard 04-02-2016 15:04-0500 Heart rate 103 /min Brooke Heard RN [employer].; [employer]. Comment on above: Pattern: Regular 04-02-2016 15:04-0500 Systolic blood pressure 142 mm[Hg] Brooke Heard RN WUT.; WUT. Comment on above: Patient Position: Sitting; Cuff Location : Left Arm; Cuff Size: Standard 09-14-2015 14:33-0400 Body height 160.02 cm Zeinab Evans AZURE DEVELOPER W[employer].; [employer]. 09-14-2015 14:33-0400 Body mass index (BMI) [Percentile] Per age and sex 99 % Margoth Nathan AZURE DEVELOPER [employer].; [employer], [employer]. 09-14-2015 14:33-0400 Body mass index (BMI) [Ratio] 44.64 kg/m2 Zeinab Evans AZURE DEVELOPER [facility], Inc.; [employer] 09-14-2015 14:33-0400 Body surface area Derived from formula 2.13 m2 Zeinab Evans [facility], Inc.; [employer], [employer] 09-14-2015 14:33-0400 Body temperature 97.4 [degF] Zeinab Evans [facility] [employer] [facility], Inc.; [employer], [employer]. Comment on above: Method: Tympanic 09-14-2015 14:33-0400 Body weight 114.31 kg Zeinab Evans AZURE DEVELOPER [place] [employer] [facility], Inc.; [employer] 03-06-2015 14:15-0500 Body height 160.02 cm Zeinab Evans [facility] [employer] [facility], Inc.; [employer], [employer]. 03-06-2015 14:15-0500 Body mass index (BMI) [Percentile] Per age and sex 99 % Zeinab Evans [facility] [employer] [facility], Inc.; [employer], [employer]. 03-06-2015 14:15-0500 Body mass index (BMI) [Ratio] 46.23 kg/m2 Zeinab Evans [employer]URE DEVELOPER [place] [employer] [facility], Inc.; [employer], [employer] 03-06-2015 14:15-0500 Body surface area Derived from formula 2.17 m2 Zeinab Evans [employer]URE DEVELOPER [facility], Inc.; [employer] 03-06-2015 14:15-0500 Body temperature 99.2 [degF] Zeinab Evans [facility] [employer] [facility], Inc.; [employer], [employer]. Comment on above: Method: Tympanic 03-06-2015 14:15-0500 Body weight 118.39 kg Zeinab Evans [employer]URE DEVELOPER [place] [employer] [facility], Inc.; [employer], [employer]. 03-06-2015 14:15-0500 Diastolic blood pressure 80 mm[Hg] Zeinab Evans [facility], [employer].; [employer], [employer]. Comment on above: Patient Position: Sitting; Cuff Location : Left Arm; Cuff Size: Large 03-06-2015 14:15-0500 Heart rate 105 /min Zeinab Evans [employer]URE DEVELOPER [facility], Inc.; [employer], [employer]. Comment on above: Pattern: Regular 03-06-2015 14:15-0500 Inhaled oxygen concentration 20 % Zeinab Evans AZURE DEVELOPER [facility], Inc.; [employer], [employer]. Comment on above: Room air 03-06-2015 14:15-0500 Inhaled oxygen concentration 21 % Zeinab Evans [facility], Inc.; [employer], [employer]. Comment on above: Room air 03-06-2015 14:15-0500 SaO2% (BldA) [Mass fraction] 98 % Zeinab Evans [facility], Inc.; [employer], [employer]. 03-06-2015 14:15-0500 Systolic blood pressure 118 mm[Hg] Zeinab Evans [facility], Inc.; [employer], [employer]. Comment on above: Patient Position: Sitting; Cuff Location : Left Arm; Cuff Size: Large 10-05-2014 11:02-0400 Body height 160.02 cm Yolande Devon Valentingraysongil [facility], Inc.; [employer], [employer]. 10-05-2014 11:02-0400 Body mass index (BMI) [Percentile] Per age and sex 99 % Yolande Upton [facility], Inc.; [employer], [employer]. 10-05-2014 11:02-0400 Body mass index (BMI) [Ratio] 44.64 kg/m2 Yolande K Alexsandra [facility] [employer] [facility], Inc.; [employer], [employer]. 10-05-2014 11:02-0400 Body surface area Derived from formula 2.13 m2 Yolande Upton [facility] [employer] [facility], Inc.; [employer], [employer]. 10-05-2014 11:02-0400 Body weight 114.31 kg Yolande Upton [facility] [employer] [facility], [employer].; [employer]. 10-05-2014 11:02-0400 Diastolic blood pressure 89 mm[Hg] Yolande Devon Hansonersbaugh [employer]URE DEVELOPER [place] [employer] [facility], Inc.; WUT. Comment on above: Patient Position: Sitting; Cuff Location : Left Arm; Cuff Size: Standard 10-05-2014 11:02-0400 Heart rate 80 /min Yolande Devon Haydenbaugh [employer]URE DEVELOPER [place] [employer] [facility], Inc.; [employer] Comment on above: Pattern: Regular 10-05-2014 11:02-0400 Systolic blood pressure 137 mm[Hg] Yolande Devon Mutersbaugh AZURE DEVELOPER [place] [employer] [facility], Inc.; [employer], [employer]. Comment on above: Patient Position: Sitting; Cuff Location : Left Arm; Cuff Size: Standard 04-14-2014 14:45-0500 Body height 160.02 cm Leny Arredondo [facility], Inc.; [employer], [employer]. 04-14-2014 14:45-0500 Body mass index (BMI) [Percentile] Per age and sex 99 % Leny Arredondo [facility], Inc.; [employer], [employer]. 04-14-2014 14:45-0500 Body mass index (BMI) [Ratio] 43.58 kg/m2 Leny Arredondo [facility], Inc.; [employer], [employer]. 04-14-2014 14:45-0500 Body surface area Derived from formula 2.11 m2 Leny Arredondo [facility], Inc.; [employer], [employer]. 04-14-2014 14:45-0500 Body temperature 99.1 [degF] Leny Arredondo [facility] [employer] [facility], [facility] [employer], [employer]. 04-14-2014 14:45-0500 Body weight 111.59 kg Leny Arredondo [facility] [employer] [facility], Inc.; [employer], [employer]. 10-14-2013 10:25-0400 Body height 158.75 cm Colleen Cedillo CNM Work Phone: [place] [employer] [facility], [employer].; [employer], [employer]. 10-14-2013 10:25-0400 Body mass index (BMI) [Percentile] Per age and sex 99 % [employer] CNM Work Phone: [employer]; [employer] 10-14-2013 10:25-0400 Body mass index (BMI) [Ratio] 43.92 kg/m2 Dreamsoft Technologiestain CNM Work Phone: [employer]; [employer] 10-14-2013 10:25-0400 Body surface area Derived from formula 2.09 m2 [employer] CNM Work Phone: [employer]; [employer] 10-14-2013 10:25-0400 Body temperature 99.1 [degF] Dreamsoft Technologiestain CNM Work Phone: [employer]; [employer]. Comment on above: Method: Tympanic 10-14-2013 10:25-0400 Body weight 110.68 kg [employer] Work Phone: [employer]; [employer] 01-12-2013 14:05-0400 Body height 160.[address] [facility] WUT.; WUT. 01-12-2013 14:05-0400 Body mass index (BMI) [Percentile] Per age and sex 99 % eZinab Evans [facility] WUT.; WUT. 01-12-2013 14:05-0400 Body mass index (BMI) [Ratio] 39.68 kg/m2 Zeinab Evans [facility] WUT.; WUT. 01-12-2013 14:05-0400 Body surface area Derived from formula 2.03 m2 Zeinab Evans [employer]EL[employer] W[employer].; [employer]. 01-12-2013 14:05-0400 Body temperature 99.8 [degF] MargothYane Evans [facility] WUT.; WUT. Comment on above: Method: Tympanic 01-12-2013 14:05-0400 Body weight 101.61 kg Zeinab Evans AZURE DEVELOPER [facility], Inc.; [employer] 10-08-2012 09:19-0400 Body height 157.48 cm Leny Arredondo [facility], Inc.; [employer] 10-08-2012 09:19-0400 Body mass index (BMI) [Percentile] Per age and sex 99 % Leny Arredondo [facility], Inc.; [employer] 10-08-2012 09:19-0400 Body mass index (BMI) [Ratio] 40.6 kg/m2 Leny Arredondo [facility], Inc.; [employer] 10-08-2012 09:19-0400 Body surface area Derived from formula 2 m2 Leny Arredondo [facility] [employer] [facility], Inc.; [employer] 10-08-2012 09:19-0400 Body temperature 97.8 [degF] Leny Arredondo [facility] [employer] [facility], Inc.; [employer] 10-08-2012 09:19-0400 Body weight 100.7 kg Leny Arredondo [facility] [employer] [facility], Inc.; [employer] 08-17-2012 09:09-0400 Body height 157.48 cm Zeinab Evans [facility], Inc.; [employer] 08-17-2012 09:09-0400 Body mass index (BMI) [Percentile] Per age and sex 99 % Zeinab Evans [facility] [employer] [facility], Inc.; [employer] 08-17-2012 09:09-0400 Body mass index (BMI) [Ratio] 40.06 kg/m2 Zeinab Evans [facility] [employer] [facility], Inc.; [employer] 08-17-2012 09:09-0400 Body surface area Derived from formula 1.99 m2 Margoth Stuckey [facility] [employer] [facility], Inc.; [employer] 08-17-2012 09:09-0400 Body weight 99.34 kg Zeinab Evans [facility] [employer] [facility], Inc.; [employer] 08-17-2012 09:09-0400 Diastolic blood pressure 79 mm[Hg] Zeinab Evans [employer]EL[employer] [place] [employer] [facility], Inc.; [employer], [employer]. Comment on above: Patient Position: Sitting; Cuff Location : Left Arm; Cuff Size: Large 08-17-2012 09:09-0400 Heart rate 81 /min Zeinab Evans [employer]ELOPER [place] [employer] [facility], Inc.; [employer] Comment on above: Pattern: Regular 08-17-2012 09:09-0400 Systolic blood pressure 133 mm[Hg] Zeinab Evans [employer]URE DEVELOPER [place] [employer] [facility], Inc.; [employer] Comment on above: Patient Position: Sitting; Cuff Location : Left Arm; Cuff Size: Large 06-24-2012 15:54-0500 Body height 160.02 cm Mallory Siddiqui LPN [place] [employer] [facility], Inc.; [employer], [employer] 06-24-2012 15:54-0500 Body mass index (BMI) [Percentile] Per age and sex 99 % [facility] Inc.; [employer], [employer]. 06-24-2012 15:54-0500 Body mass index (BMI) [Ratio] 39.19 kg/m2 Mallory Siddiqui [facility] [employer] [facility], Inc.; [employer] 06-24-2012 15:54-0500 Body surface area Derived from formula 2.02 m2 Mallory Siddiqui [facility] [employer] [facility], Inc.; [employer], [employer]. 06-24-2012 15:54-0500 Body temperature 100 [degF] Mallory Siddiqui [facility] [employer] [facility], [employer].; [employer]. Comment on above: Method: Tympanic 06-24-2012 15:54-0500 Body weight 100.36 kg Mallory Siddiqui LPN [place] [employer] [facility], Inc.; [employer], [employer]. 06-24-2012 15:54-0500 Heart rate 87 /min [facility], [employer].; [employer]. Comment on above: Pattern: Regular 06-24-2012 15:54-0500 Inhaled oxygen concentration 20 % Mallory Wesurinder MCDONALD [facility], [facility].; [employer]. Comment on above: Room air 06-24-2012 15:54-0500 Inhaled oxygen concentration 21 % Mallory Wesurinder TAMEZTgh [place], [facility].; [place] [employer], [employer]. Comment on above: Room air 06-24-2012 15:54-0500 SaO2% (BldA) [Mass fraction] 98 % Mallory Wesurinder TAMEZTgh [place], [facility].; [place] [employer]. 12-25-2011 15:43-0400 Body height 160.02 cm Mallory Wesurinder [facility], [facility].; [place] [employer], [employer]. 12-25-2011 15:43-0400 Body mass index (BMI) [Percentile] Per age and sex 99 % Mallory Sinsurinder [facility], [facility].; [place] Q[employer] [facility], [employer]. 12-25-2011 15:43-0400 Body mass index (BMI) [Ratio] 39.7 kg/m2 Mallory Wesurinder TAMEZTgh [place], [facility].; [place] [employer], [employer]. 12-25-2011 15:43-0400 Body surface area Derived from formula 2.03 m2 Mallory Sinsurinder [facility], [facility].; [employer], [employer]. 12-25-2011 15:43-0400 Body temperature 99.7 [degF] Mallory Wesurinder [facility], [facility].; [employer]. Comment on above: Method: Tympanic 12-25-2011 15:43-0400 Body weight 101.66 kg Mallory Wesurinder MCDONALD [place] Q[employer] [facility], [facility].; [employer]. 12-25-2011 15:43-0400 Diastolic blood pressure 85 mm[Hg] Mallory Sinsurinder [facility] Q.ME [facility], [facility].; [employer]. Comment on above: Patient Position: Sitting; Cuff Location : Left Arm; Cuff Size: Standard 12-25-2011 15:43-0400 Heart rate 101 /min Mallory Siddiqui [facility], [facility].; W[employer]. Comment on above: Pattern: Regular 12-25-2011 15:43-0400 Systolic blood pressure 129 mm[Hg] Mallory Siddiqui LPN [employer].; [employer]. Comment on above: Patient Position: Sitting; Cuff Location : Left Arm; Cuff Size: Standard 09-22-2011 [id number] Body height 160.02 cm TITIN Tech Uptain CNM Work Phone: [employer]; WUT. 09-22-2011 09:11-0400 Body mass index (BMI) [Percentile] Per age and sex 99 % TITIN Tech Uptain CNM Work Phone: [employer]; WUT. 09-22-2011 09:11-0400 Body mass index (BMI) [Ratio] 38.26 kg/m2 TITIN Tech Uptain CNM Work Phone: [employer]; [employer]. 09-22-2011 09:11-0400 Body surface area Derived from formula 2 m2 TITIN Tech Uptain CNM Work Phone: [employer]; WUT. 09-22-2011 09:11-0400 Body temperature 97.4 [degF] TITIN Tech Uptain CNM Work Phone: [employer]; WUT. Comment on above: Method: Tympanic 09-22-2011 [id number]:[id number] Body weight 97.98 kg TITIN Tech Uptain CNM Work Phone: [employer]; WUT. 09-22-2011 09:11-0400 Diastolic blood pressure 70 mm[Hg] TITIN Tech Uptain CNM Work Phone: [employer]; WUT. Comment on above: Patient Position: Sitting; Cuff Location : Right Arm; Cuff Size: Large 09-22-2011 09:11-0400 Heart rate 74 /min Crystal Uptain CNM Work Phone: [employer].; WUT. Comment on above: Pattern: Regular 09-22-2011 09:11-0400 Systolic blood pressure 103 mm[Hg] Colleen Cedillo CNM Work Phone: [facility].; WUT. Comment on above: Patient Position: Sitting; Cuff Location : Right Arm; Cuff Size: Large 07-23-2011 15:02-0400 Body height 160.02 cm MargothYane MathisTGH [place], [facility].; [employer]. 07-23-2011 15:02-0400 Body mass index (BMI) [Percentile] Per age and sex 99 % [facility] [place] [facility], [facility].; [place] IF[employer]T. 07-23-2011 15:02-0400 Body mass index (BMI) [Ratio] 38.26 kg/m2 [facility] [place], [facility].; [place] Q[employer]ME [facility], [employer]. 07-23-2011 15:02-0400 Body surface area Derived from formula 2 m2 [facility] NathanT[facility] [place], [facility].; [employer], [employer]. 07-23-2011 15:02-0400 Body temperature 98.7 [degF] Margoth [place] [facility], [facility].; WUT. Comment on above: Method: Tympanic 07-23-2011 15:02-0400 Body weight 97.98 kg [facility] Nathan [facility], [facility].; [place] [employer], [employer]. 06-13-2011 13:30-0500 Body height 159.38 cm Leny Arredondo LPN [facility], [facility].; [employer], [employer]. 06-13-2011 13:30-0500 Body mass index (BMI) [Percentile] Per age and sex 99 % Leny Arredondo AZURE DEVELOPER [facility], [facility].; WUT. 06-13-2011 13:30-0500 Body mass index (BMI) [Ratio] 38.21 kg/m2 Leny Arredondo [employer]URE DEVELOPER [place] Q[employer] [facility], [facility].; [employer]. 06-13-2011 13:30-0500 Body surface area Derived from formula 1.98 m2 Leny Arredondo AZURE DEVELOPER [facility], [facility].; [employer]. 06-13-2011 13:30-0500 Body temperature 98.2 [degF] Leny Arredondo [facility], [facility].; [employer], [employer]. 06-13-2011 13:30-0500 Body weight 97.07 kg Leny Arredondo [facility], [facility].; W[employer]. 02-24-2011 15:29-0500 Body height 156.21 cm Leny Arredondo [facility], [facility].; [employer], [employer]. 02-24-2011 15:29-0500 Body mass index (BMI) [Percentile] Per age and sex 99 % Leny Arredondo [facility], [facility].; [employer], [employer]. 02-24-2011 15:29-0500 Body mass index (BMI) [Ratio] 39.41 kg/m2 Leny Arredondo [facility], [facility].; [employer], [facility]. 02-24-2011 15:29-0500 Body surface area Derived from formula 1.95 m2 Leny Arredondo [facility] Q.ME [facility], [facility].; [employer], [employer]. 02-24-2011 15:29-0500 Body temperature 99.3 [degF] Leny Arredondo [facility] Q.ME [facility], [facility].; [employer], [employer]. 02-24-2011 15:29-0500 Body weight 96.16 kg Leny Arredondo AZURE DEVELOPER [facility], [facility].; WUT. 01-07-2011 14:58-0400 Body height 158.75 cm Zeinab Evans [facility] Q.ME [facility], [facility].; WUT. 01-07-2011 14:58-0400 Body mass index (BMI) [Percentile] Per age and sex 99 % Zeinab Evans [facility] Q.ME [facility], [facility].; [employer]. 01-07-2011 14:58-0400 Body mass index (BMI) [Ratio] 38.16 kg/m2 Zeinab Evans [facility] Q.ME [facility], [employer].; WUT. 01-07-2011 14:58-0400 Body surface area Derived from formula 1.97 m2 [facility]. 01-07-2011 14:58-0400 Body temperature 99.1 [degF] [facility].; WUT. Comment on above: Method: Tympanic 01-07-2011 14:58-0400 Body weight 96.[address] [facility] WUT.; WUT. 06-21-2010 15:40-0500 Body height 157.48 cm Crystal Uptain CNM Work Phone: [employer].; WUT. 06-21-2010 15:40-0500 Body mass index (BMI) [Percentile] Per age and sex 99 % Crystal Uptain CNM Work Phone: [employer].; WUT. 06-21-2010 15:40-0500 Body mass index (BMI) [Ratio] 37.13 kg/m2 Crystal Uptain CNM Work Phone: [employer].; WUT. 06-21-2010 15:40-0500 Body surface area Derived from formula 1.92 m2 Crystal Uptain CNM Work Phone: W[employer].; WUT. 06-21-2010 15:40-0500 Body temperature 98.5 [degF] Crystal Uptain CNM Work Phone: [employer].; WUT. Comment on above: Method: Tympanic 06-21-2010 15:40-0500 Body weight 92.08 kg Crystal Uptain CNM Work Phone: W[employer].; WUT. Encounters Encounter Date Encounter Type Care Provider Facility Start: 12-06-2024 End: 12-06-2024 Patient encounter procedure Bessie ALONSO -[facility] Work Phone: Start: 12-06-2024 End: 12-06-2024 ambulatory [facility] PA-C Work Phone: -[facility] Start: 11-15-2024 End: 11-15-2024 Patient encounter procedure Bessie Mansfield SEATING CAPTAIN-C -[facility] Work Phone: Start: 11-15-2024 End: 11-15-[facility]24 [facility] Start: 10-24-2024 End: 10-24-2024 ambulatory [facility] Start: 10-17-2024 End: 10-17-2024 Patient encounter procedure Bessie Mansfield SEATING CAPTAIN-C -[facility] Work Phone: Start: 10-17-2024 End: 10-17-2024 [facility] Start: 10-10-2024 End: 10-10-2024 ambulatory AMEE SCHAFFER [facility] Start: 09-19-2024 End: 09-19-2024 Patient encounter procedure Ning DEMPSEY -[facility] Work Phone: Start: 09-19-2024 End: 09-19-2024 ambulatory [facility] PA-C Work Phone: [facility] Work Phone: Start: 08-24-2024 End: 08-24-[address] Amee Schaffer MD -[facility] Work Phone: Start: 08-24-2024 End: 08-24-2024 ambulatory Louise Hills PA Facility:[facility] Start: 08-05-2024 End: 08-05-2024 Patient encounter procedure Ning Oquendo CNM -[facility] Work Phone: Start: 08-05-2024 End: 08-05-2024 ambulatory [facility] PA-C Work Phone: Work Phone: Start: 08-05-2024 End: 08-05-2024 ambulatory [facility] Facility: Start: 07-29-2024 End: 07-29-2024 Patient encounter procedure Jenny So CNM -[facility] Work Phone: Start: 07-29-2024 End: 07-29-2024 ambulatory [facility] PA-C Work Phone: Work Phone: Start: 07-29-2024 End: 07-29-2024 ambulatory [facility] Facility: Start: 07-21-2024 End: 07-21-2024 Patient encounter procedure Ning Oquendo CNM -[facility] Work Phone: Start: 07-21-2024 End: 07-21-2024 ambulatory [facility] Facility:[facility] Start: 07-08-2024 Non-patient / Non-visit Hannah narayan RN -[facility] Work Phone: Start: 07-08-2024 ambulatory [facility] Start: 06-08-2024 End: 06-08-2024 Patient encounter procedure Leeann ALONSO -[facility] Work Phone: Start: 06-08-2024 End: 06-08-2024 Patient encounter status Leeann ALONSO Start: 06-08-2024 End: 06-08-2024 ambulatory [facility] Start: 04-27-2024 End: 04-27-2024 Office outpatient visit 15 minutes Crystal Abtain CNM Work Phone: [facility], [facility]. Start: 01-27-2024 End: 01-27-2024 Orders Crystal Neksttain CNM Work Phone: [employer] Start: 12-22-2023 End: 12-22-2023 Office outpatient visit 15 minutes Crystal Uptain CNM Work Phone: [employer]. Start: 11-25-2023 End: 11-26-2023 ambulatory JAZMYN PAGE [facility] Start: 10-19-2023 End: 10-20-2023 Orders Crystal Uptain CNM Work Phone: [employer]. Start: 09-09-2023 End: 09-09-2023 Orders Crystal Uptain CNM Work Phone: [employer]. Start: 08-24-2023 End: 08-24-2023 Office outpatient visit 15 minutes Crystal Uptain CNM Work Phone: [employer] Start: 08-24-2023 Follow-up encounter Crystal Up tain CNM Work Phone: [employer]. Start: 08-11-2023 End: 08-11-2023 Orders Crystal Uptain CNM Work Phone: [employer]. Start: 06-05-2023 End: 06-05-2023 Orders Crystal Uptain CNM Work Phone: [employer] Start: 06-03-2023 End: 06-03-2023 ambulatory PA-C Louise [employer] PA Work Phone: Work Phone: Start: 06-03-2023 End: 06-03-2023 Patient encounter procedure PA-C Louise [employer] PA Work Phone: -Laboratory, Specimen Work Phone: Start: 06-03-2023 End: 06-03-2023 Patient encounter procedure PA-C Louise Moon PA Work Phone: [facility] Work Phone: Start: 05-20-2023 End: 05-20-2023 Orders Crystal Uptain CNM [facility] Start: 05-13-2023 End: 05-13-2023 Orders Crystal Uptain CNM Work [facility] Start: 04-27-2023 End: 04-27-2023 Office outpatient visit 25 minutes Crystal Uptain CNM Work [facility] Start: 04-15-2023 End: 04-15-2023 ambulatory PA-C [employer] Work Phone: Work Phone: Start: 04-15-2023 End: 04-15-2023 Patient encounter procedure PA-C [employer] PA Work Phone: -Laboratory Work Phone: Start: 03-25-2023 End: 03-25-2023 ambulatory PA-C Louise [employer] PA Work Phone: Work Phone: Start: 03-25-2023 End: 03-25-2023 Patient encounter procedure PA-C Louise Winslow [facility] Work [facility] Start: 03-25-2023 End: 03-25-2023 Patient encounter procedure PA-C Louise Winslow PA Work Phone: [facility] Work Phone: Start: 11-21-2020 End: 11-21-2020 Patient encounter procedure Crystal Uptain CNM Work Phone: [facility] Start: 01-17-2020 End: 01-17-2020 Medication Crystal Uptain CNM Work Phone: [place] [facility] Start: 08-09-2019 End: 08-09-2019 Orders Crystal Uptain CNM Work Phone: [employer] Start: 08-01-2019 End: 08-01-2019 Office outpatient visit 10 minutes Crystal Uptain CNM Work Phone: [employer] Start: 06-23-2019 End: 06-23-2019 Office outpatient visit 15 minutes Crystal Uptain CNM Work Phone: [employer] Start: 05-23-2019 End: 05-23-2019 Office outpatient visit 15 minutes Crystal Uptain CNM Work Phone: [employer] Start: 02-14-2019 End: 02-14-2019 Office outpatient visit 10 minutes Crystal Uptain CNM Work Phone: [employer] Start: 01-13-2019 End: 01-13-2019 Office outpatient visit 25 minutes Crystal Uptain CNM Work Phone: [employer] Start: 2018 End: 2018 Office outpatient visit 25 minutes Crystal Uptain CNM Work Phone: [employer] Start: 09-07-2018 End: 09-07-2018 Patient encounter procedure Crystal Uptain CNM Work Phone: [employer] Start: 09-02-2018 End: 09-02-2018 Office outpatient visit 15 minutes Crystal Uptain CNM Work Phone: [employer] Start: 06-30-2018 End: 06-30-2018 Office outpatient visit 15 minutes Crystal Uptain CNM Work Phone: [employer] Start: 05-13-2018 End: 05-13-2018 Telephone follow-up Crystal Uptain CNM Work Phone: [employer] Start: 05-06-2018 Patient encounter procedure MALLORY AGUILAR [facility] Start: 04-29-2018 End: 04-29-2018 Patient encounter procedure NATHAN NOBLES [facility] Start: 04-22-2018 Patient encounter procedure RED ALBERTO [facility] Start: 04-14-2018 End: 04-14-2018 Patient encounter procedure WANDER POLLACK [facility] Start: 04-05-2018 End: 04-05-2018 Patient encounter procedure [facility]div[facility] Start: 03-08-2018 Patient encounter procedure SHARAN JEFFREY [facility] Start: 02-11-2018 End: 02-11-2018 Patient encounter procedure SHARAN JEFFREY [facility] Start: 01-28-2018 End: 01-28-2018 Patient encounter procedure PORSHA YUN [facility] Start: 01-11-2018 Patient encounter procedure SHARAN JEFFREY [facility] Start: 08-04-2017 End: 08-04-2017 Patient encounter procedure Crystal Uptain CNM Work Phone: [employer] Start: 06-24-2017 End: 06-24-2017 Office outpatient visit 10 minutes Crystal Uptain CNM Work Phone: [employer] Start: 06-18-2017 End: 06-18-2017 Office outpatient visit 15 minutes Crystal Uptain CNM Work Phone: [employer] Start: 05-21-2017 End: 05-21-2017 Office outpatient visit 15 minutes Crystal Uptain CNM Work Phone: [employer] Start: 04-21-2017 End: 04-21-2017 Medication Crystal Uptain CNM Work Phone: [employer] Start: 03-25-2017 End: 03-25-2017 Patient encounter procedure Crystal Uptain CNM Work Phone: [employer] Start: 02-26-2017 End: 02-26-2017 Medication Crystal Uptain CNM Work Phone: [employer] Start: 02-24-2017 End: 02-24-2017 Patient encounter procedure Crystal Uptain CNM Work Phone: [employer] Start: 10-16-2016 End: 10-16-2016 Office outpatient visit 15 minutes Crystal Uptain CNM Work Phone: [employer] Start: 07-14-2016 End: 07-14-2016 Patient encounter procedure Crystal Uptain CNM Work Phone: [employer] Start: 04-09-2016 End: 04-09-2016 Orders Crystal Uptain CNM Work Phone: [employer]. Start: 04-09-2016 End: 04-09-2016 Medication Crystal Uptain CNM Work Phone: [employer] Start: 04-02-2016 End: 04-02-2016 Patient encounter procedure Crystal Uptain CNM Work Phone: [employer] Start: 12-03-2015 End: 12-03-2015 Nursing evaluation of patient and report Crystal Uptain CNM Work Phone: [employer] Start: 11-26-2015 End: 11-26-2015 Orders Crystal Uptain CNM Work Phone: [employer] Start: 09-14-2015 End: 09-14-2015 Office outpatient visit 15 minutes Crystal Uptain CNM Work Phone: [employer] Start: 03-06-2015 End: 03-06-2015 Office outpatient visit 15 minutes Crystal Uptain CNM Work Phone: [employer] Start: 10-05-2014 End: 10-05-2014 Office outpatient visit 15 minutes Crystal Uptain CNM Work Phone: [employer] Start: 04-14-2014 End: 04-14-2014 Patient encounter procedure Crystal Uptain CNM Work Phone: [employer] Start: 03-13-2014 End: 03-13-2014 Nursing evaluation of patient and report Crystal Uptain CNM Work Phone: [employer] Start: 10-14-2013 End: 10-14-2013 Patient encounter procedure Crystal Uptain CNM Work Phone: [employer] Start: 01-12-2013 End: 01-12-2013 Patient encounter procedure Crystal Uptain CNM Work Phone: [employer]. Start: 10-08-2012 End: 10-08-2012 Patient encounter procedure Crystal Uptain CNM Work Phone: [employer]. Start: 08-17-2012 End: 08-17-2012 Patient encounter procedure Crystal Uptain CNM Work Phone: [employer] Start: 08-17-2012 End: 08-17-2012 Routine general medical examination at a [facility] facility Jame Wolfe MD Work Phone: [employer].; WUT. Start: 06-24-2012 End: 06-24-2012 Patient encounter procedure Crystal Uptain CNM Work Phone: [employer]. Start: 12-25-2011 End: 12-25-2011 Patient encounter procedure Crystal Uptain CNM Work Phone: [employer] Start: 09-22-2011 End: 09-22-2011 Patient encounter procedure Crystal Uptain CNM Work Phone: [employer] Start: 07-23-2011 End: 07-23-2011 Patient encounter procedure Crystal Uptain CNM Work Phone: [employer] Start: 06-13-2011 End: 06-13-2011 Patient encounter procedure Crystal Uptain CNM Work Phone: [employer] Start: 02-24-2011 End: 02-24-2011 Patient encounter procedure Crystal Uptain CNM Work Phone: [employer]. Start: 01-07-2011 End: 01-07-2011 Patient encounter procedure Crystal Uptain CNM Work Phone: [employer] Start: 06-21-2010 End: 06-21-2010 Patient encounter procedure Crystal Uptain CNM Work Phone: [facility] Patient encounter procedure Mary Adithya SCHMIDT [facility].; [facility] Patient encounter procedure Louise Moon PA-C Work Phone: [facility].; [facility] Patient encounter procedure Aracelis Dueñas TAMARA [facility] Procedures Date Procedure Procedure Detail Performing Clinician Start: 12-06-2024 Serologic test for syphilis Louise Moon PA-C Work Phone: Start: 08-05-2024 Urine culture Louise Moon PA-C Work Phone: Start: 07-29-2024 Hepatitis C antibody measurement Louise Moon PA-C Work Phone: Comment on above: Reactive: Presumptiv e evidence of antibodies to HCV. Follow CDC recommendations for supplemental testing.Non-Reactive: Antibodies to HCV were not detected; does not exclude the possibility of exposure to HCVReactive Results are presumptive evidence of antibodies to HCV. Follow CDC recommendations for supplemental testing.Order confirmation testing: HCV Quant by PCR testing - HCVPCR lc#[id number] Non Reactive: < 0.8 Equivocal: >/= 0.8 to < 1.0 Reactive: >/= 1.0The CDC requires that a reactive/equivocal HCV antibody result be sent out for confirmation. HCV Quant by PCR testing. Start: 07-29-2024 Rubella IgG measurement Louise Winslow [employer] Work Phone: Comment on above: Antibody Result: Int erpretationNon-Reactive: Non- ImmuneReactive: ImmuneThe following results were obtained with the [employer] Rubella IgG assay. Results from assays of other manufacturers cannot be used interchangeably. Start: 07-29-2024 Serologic test for syphilis Louise Moon PA-C Work Phone: Start: 07-29-2024 Urine culture Louise GILES-C Work Phone: Start: 06-03-2023 [facility]ital [facility] Work Phone: Start: 06-03-2023 Investigation of transfusion reaction PA-C Louise Moon PA Work Phone: Start: 02-18-2023 End: 02-18-2023 Microscopic examination of cervical Papanicolaou smear Mary Haji MA Start: 11-21-2020 End: 11-21-2020 Depression screening Louise Moon PA -C Work Phone: Start: 11-21-2020 End: 11-21-2020 Scr dep neg, no plan reqd Louise Marcelo Daquan ls PA-C Work Phone: Start: 2018 End: 11-30-2020 Polysom 6/>yrs sleep 4/> addl anne marie attnd Louise Moon PA-C Work Phone: Start: 09-02-2018 End: 09-07-2018 Us abdominal real time w/image limited Louise Fozia Moon PA-C Work Phone: Start: 04-20-2018 End: 04-20-2018 Operation on gallbladder Mary Haji MA Start: 08-04-2017 End: 08-12-2017 Us breast uni real time with image complete Louise Moon PA-C Work Phone: Start: 08-04-2017 End: 08-04-2017 Body mass index documented Louise D Hi lls PA-C Work Phone: Start: 06-24-2017 End: 06-24-2017 Body mass index documented Louise D Hi lls PA-C Work Phone: Start: 06-18-2017 End: 06-18-2017 Body mass index documented Louise D Hi lls PA-C Work Phone: Start: 05-21-2017 End: 05-21-2017 Body mass index documented Louise D Hi lls PA-C Work Phone: Start: 03-25-2017 End: 03-25-2017 Body mass index documented Louise D Hi lls PA-C Work Phone: Start: 02-24-2017 End: 02-24-2017 Body mass index documented Louise Beasley lls PA-C Work Phone: Start: 02-24-2017 End: 02-24-2017 Flu imm no admin doc nestor Marcelo Cesar lim PA-C Work Phone: Section - 2 Marytay Haji MA Section - 2 Patrica Dueñas LPN Section - 2 Ren Wright RN Section - 2 Ren Wright RN H/O: section S/P PA-C Louise GILES Work Phone: Comment on above: for twin . desires TOLAC. H/O: section History of delivery, currently Louisehelene Moon PA-C Work Phone: Comment on above: Desires H/O: section History of delivery, currently Jenny DEMPSEYM H/O: section History of delivery, currently Dr. Amee Schaffer MD H/O: section History of delivery, currently Ning Oquendo CNM H/O: section History of delivery, currently Bessie Mansfield SEATING CAPTAIN-C H/O: section History of delivery, currently Bessie Mansfield SEATING CAPTAIN-C H/O: section History of delivery, currently Bessie Mansfield SEATING CAPTAIN-C Plan of Treatment Date Care Activity Detail Author Start: 12-06-2024 CBC W Auto Differential panel - Blood Start: 12-06-2024 Measurement of glucose 2 hours after glucose challenge for glucose tolerance test Start: 12-06-2024 Serologic test for syphilis [facility] Start: 12-06-2024 Start: 07-29-2024 Chlamydia deoxyribonucleic acid detection Start: 07-27-2024 Patient encounter procedure Medical; EXTENDED RTN - 3 month rtn-NEEDS TO PAY COPAY! [employer] Start: 27-Jul-2024 09:20-04:00 ARAVIND Cedillo Appointment Request [employer] Start: 03-22-2024 Patient encounter procedure Medical; EXTENDED RTN - 3 MO FU [employer]. Start: 22-Mar-2024 11:00-05:00 ARAVIND Cedillo [facility] Start: 12-22-2023 Patient encounter procedure Medical; EXTENDED RTN - 3 mo [facility] Start: 22-Dec-2023 11:00-04:00 ARAVIND Cedillo [facility]ment [facility] Start: 11-24-2023 Patient encounter procedure Medical; EXTENDED RTN - 3 mo [facility] Start: 24-Nov-2023 10:00-04:00 ARAVIND Cedillo [facility]ment [facility] Start: 08-24-[address] [facility] Start: 04-15-2023 Procedure Start: 04-15-2023 Dehydroepiandrosterone sulfate (DHEA-S) [Mass/volume] in Serum or Plasma Start: 04-15-2023 Testosterone measurement [facility] Start: 03-25-2023 Liquid based cervical cytology screening 17-Hydroxyprogestero ne [Mass/volume] in Serum or Plasma CBC W Auto Different ial panel - Blood Dehydroepiandrostero ne sulfate (DHEA-S) [Mass/volume] in Serum or Plasma Erythrocyte mean cor puscular volume determination anatomy study anatomy study Hematocrit [Volume F raction] of Blood Hemoglobin [Mass/vol ume] in Blood Hemoglobin A1c/Hemog lobin.total in Blood Leukocytes [#/volume] in Blood Mean corpuscular hem oglobin concentration determination Mean corpuscular hem oglobin determination Measurement of gluco se 2 hours after glucose challenge for glucose tolerance test Neisseria gonorrhoea e rRNA [Presence] in Unspecified specimen by CUCO with probe detection Neutrophil count [facility] Neutrophil percent d ifferential count Path report.final Dx Spec [facility] PCR test for Chlamyd ia trachomatis Platelets [#/volume] in Blood Red blood cell count Red cell distributio n width determination Serologic test for syphilis T4 free measurement Testosterone Free [M ass/volume] in Serum or Plasma Testosterone measurement [facility] Thyroid stimulating hormone measurement Triiodothyronine, fr ee measurement Vitamin D, 1,25-dihy droxy measurement [facility] Immunizations Immunization Date Immunization Notes Care Provider Stephen cho 12-06-2024 tetanus toxoid, redu alejandro diphtheria toxoid, and acellular pertussis vaccine, adsorbed Louise Moon PA-C Work Phone: 03-13-2014 tetanus toxoid, redu alejandro diphtheria toxoid, and acellular pertussis vaccine, adsorbed Crystal Kofax Work Phone: [employer]; [employer]. Comment on above: Site: Deltoid (Left) VIS Given: * TDAP, Td (08/26/2012) 12-31-2001 diphtheria, tetanus toxoids and acellular pertussis vaccine [employer] Work Phone: [employer]; [facility] 10-19-2001 measles, mumps and rubella virus vaccine [employer] Work Phone: [employer]; [employer] 10-19-2001 poliovirus vaccine, inactivated [employer] Work Phone: [employer]; [employer] 04-06-1998 diphtheria, tetanus toxoids and acellular pertussis vaccine [employer] Work Phone: [employer]; [employer] 04-06-1998 haemophilus influenz ae type b vaccine, PRP-T conjugate [employer] Work Phone: [employer]; [employer] 11-29-1997 measles, mumps and rubella virus vaccine Crystal Uptain CNM Work Phone: [facility] 11-29-1997 poliovirus vaccine, inactivated Crystal Uptain CNM Work Phone: [facility] 05-12-1997 diphtheria, tetanus toxoids and acellular pertussis vaccine Crystal Uptain CNM Work Phone: [facility] 05-12-1997 haemophilus influenz ae type b vaccine, PRP-T conjugate Crystal Uptain CNM Work Phone: [facility] 05-12-1997 hepatitis B vaccine, pediatric or pediatric/adolescent dosage Crystal Uptain CNM Work Phone: [facility] 02-24-1997 diphtheria, tetanus toxoids and acellular pertussis vaccine Crystal Uptain CNM Work Phone: [facility] 02-24-1997 haemophilus influenz ae type b vaccine, PRP-T conjugate Crystal Uptain CNM Work Phone: [facility] 02-24-1997 poliovirus vaccine, inactivated Crystal Uptain CNM Work Phone: [facility] 01-03-1997 diphtheria, tetanus toxoids and acellular pertussis vaccine Crystal Uptain CNM Work Phone: [facility] 01-03-1997 haemophilus influenz ae type b vaccine, PRP-T conjugate Crystal Uptain CNM Work Phone: [facility] 01-03-1997 poliovirus vaccine, inactivated Crystal Uptain CNM Work Phone: [facility] 1996 hepatitis B vaccine, pediatric or pediatric/adolescent dosage Crystal Uptain CNM Work Phone: [facility] 1996 hepatitis B vaccine, pediatric or pediatric/adolescent dosage Crystal Uptain CNM Work Phone: [facility]. Payers Date Payer Category Payer Unknown [id number] 2024 Self-pay [id number] 2024 Unknown [id number] 1996 Unknown [id number] 2.16.8 40.1.444445.3.579.2 1996 Unknown [id number] 2.16.8 40.1.504901.3.579.2 1996 Unknown [id number] 2.16.8 40.1.126943.3.579.2 1996 Unknown [id number] 2.16.8 40.1.053513.3.579.2 1996 Unknown [id number] 2.16.8 40.1.638762.3.579.2 1996 Unknown [id number] 2.16.8 40.1.196943.3.579.2 1996 Unknown [id number] 2.16.8 40.1.232468.3.579.2 1996 Unknown [id number] 2.16.8 40.1.442456.3.579.2 1996 Unknown [id number] 2.16.8 40.1.110676.3.579.2 1996 Unknown [id number] 2.16.8 40.1.330614.3.579.2 1996 Unknown [id number] 2.16.8 40.1.496681.3.579.2.479 1996 Unknown [id number] .16.8 40.1.241632.3.579.2.651 1996 Unknown [id number] .16.8 40.1.380976.3.579.2.651 1996 Unknown [id number] 06.05.8 40.1.621915.3.579.2.651 Medicaid [id number] Unknown [id number] Unknown [facility] [id number] [id number] Unknown [employer] [id number] Unknown Unknown [id number] 40.1.724055.3.579.2.462 Unknown [id number] .16.8 40.1.717998.3.579.2.462 Unknown [id number] .16.8 40.1.201259.3.579.2.462 Unknown [id number] .16.8 40.1.842276.3.579.2.462 Unknown [id number] ..[id number] 40.1.261969.3.579.2.462 Unknown [id number] .16.8 40.1.543801.3.579.2.462 Unknown [id number] .16.8 40.1.074467.3.579.2.462 Unknown [id number] .16.8 40.1.203410.3.579.2.462 Unknown [id number] .16.8 40.1.181128.3.579.2.462 Unknown [id number] .16.8 40.1.453855.3.579.2.462 Unknown [id number] .16.8 40.1.848779.3.579.2.462 Unknown [id number] 2.16.8 40.1.020656.3.579.2.462 Unknown [id number] 2.16.8 40.1.587532.3.579.2.462 Social History Date Type Detail Facility Start: 03-25-2023 End: 06-03-2023 Tobacco smoking status NHIS Unknown if ever smoked Start: 05-10-2018 None [facility] Start: 1995 Sex Assigned At Female W [facility] Child(bobby) Child(bobby) [facility] [email or web address]; [employer] Tobacco Use: Tobacco Use: ; N ever smoker. [facility].; [employer] Tobacco/Smoke Exposure: Tobacco/ Smoke Exposure: ; Family members smoke indoors. [employer]; [employer] Family members s moke indoors [employer]; [employer] Work Phone: Start: 07-08-2024 End: 08-04-2024 Never smoked tobacco Start: 08-01-2024 End: 08-09-2024 Sex Female (finding) Clinical Notes 03-25-2023 to 09-19-2024 Note Date & Type Note Facility 09-19-2024 Progress note [facility] 09-19-2024 Progress note Note Date/Time September 19, 2024 2:39pm [facility] [address], [address] [place] [address] OFFICE VISIT Date of Service: 09/19/24 MR#: [id number] Acct: [id number] Name: PATTY ALVAREZ Rep #: [id number] : 1995 Provider: ARAVIND Oquendo Age/Sex: 28/F [place] [facility] [place]: Signed Intake Vital Signs 07/29/24 14:29 08/24/24 14:44 09/19/24 14:11 Height 5 ft 3 in 5 ft 3 in 5 ft 3 in Weight: 273 lb BMI 48.3 BP 122/78 H Intake Visit Reasons: 17 wk ob * Chief Complaint: 17wk OB Process Control Specialist Required: No Is patient in pain?: No Allergies Penicillins (PCN) Allergy (Verified 09/19/24 14:09) Rash Medications ?Medication ?Instructions ?Recorded ?Confirmed ?Type docosahexaenoic acid 200 mg mg PO 07/08/24 09/19/24 Hi story capsule ( DHA) ondansetron 4 mg disintegrating 4 mg PO Q6H PRN nausea and 09/07/24 09/19/24 Rx tablet vomiting #30 tabs Last Menstrual Period: 05/22/24 : No Have you fallen in the past year?: No PFSH PFSH Medical History History of twin in prior ASCUS favoring dysplasia Morbid obesity Irregular menses Infertility Anxiety and depression Surgical History S/P LEEP H/O dilation and curettage Hx of abdominal surgery History of S/P cholecystectomy Family History Grandfather Cancer lung throat- smoker Father Diabetes Sister Cancer Social History adopted: No household members: significant other, children and other details: her mother lives with them housing: house number of children: 2 current occupational status: employed current occupation: [employer] - L[employer]D current occupational exposures/hazards: No pets and animals: Yes (Not managing liter box) pets and animals: cat(s) history of recent travel: Yes ( - May 2024) out of state: Yes out of country:No sexually active: Yes Smoking Status: Never smoker second hand exposure: No alcohol intake: former details: Many many years substance use type: does not use well-balanced diet: daily or most days caffeine: Yes Type: carbonated beverages Number of servings: 1 eating out: 1-3 times/week during the past year weight has: remained stable what type of physical activity do you participate in: walking frequency: 1-2 times per week duration: < 15 minutes/day karo/spiritism: None seatbelt use: always do you feel safe at home: Yes additional social history: 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 Date Name GA/Weeks Outcome Route Bth Weight Infant Gen Labor Lgth Anesthesia Del Locatn Provider FOB 05/10/18 Andreina 38 live - full term 6lb 1oz Female [facility] Jose Jkareem 05/10/18 Stefania 38 live - full term 6lbs 5oz Female [facility] Manuel 10/15/20 10 spontaneous Delivery Date: 05/10/18 Last Updated by: Laine Harden Twins; Breech/Breech Delivery Date: 05/10/18 Last Updated by: Laine Harden Twins; Breech/Breech Delivery Date: 10/15/20 Last Updated by: Hannah Mercado RN D&C - [facility] HPI 17 wk ob * Details: PATTY ALVAREZ is a 28 year old who presents for routine OB visit. OB Visit LITA Calculator Estimated Delivery Date Method Current WG Current Estimate 02/26/25 LMP (Certain) 17w 1d Expected Delivery Route/Plan Labor Preferences- CB/BF classes: [] labor support person: [] labor intervention preferences: [] pain management options preferred: [] cut cord/dad catch: [] : [] PP control planned: [] discussed possible routes of delivery and associated risks: [] special requests: [] Initial Weight: 269 lb Date -?-?-?-?-?-?-?-?-?-?-?-?- EGA Weight BP Urine Prot -?-?-?-?-?-?-?-?-?-?-?-?- Glucose FHR FuHt Pres Dilation -?-?-?-?-?-?-?-?-?-?-?-?- Effaced St Visit Note 07/29/24 -?-?-?-?-?-?-?-?-?-?-?-?- 9w 5d 269 lb 4 oz (+4 oz) 125/81 -?-?-?-?-?-?-?-?-?-?-?-?- 164 -?-?-?-?-?--?-?-?-?-?-?-?- LC- CRL con with lmp. declines nipt. LC- CRL con with lmp. declin es nipt. desires . [id number] added for obesity 08/24/24 -?-?-?-?-?-?-?-?-?-?-?-?- 13w 3d 269 lb 6 oz (+6 oz) 125/84 Negative -?-?-?-?-?-?-?-?-?-?-?-?- Negative 160 -?-?-?-?-?-?-?-?-?-?-?-?- SM- no vb crampi ng 09/19/24 -?-?-?-?-?-?-?-?-?-?-?-?- 17w 1d 273 lb (+4 lb) 122/78 Negative -?-?-?-?-?-?-?-?-?-?-?-?- Negative 155 -?-?-?-?-?-?-?-?-?-?-?-?- kw- no vb/crampi ng. no flutters yet. US set up for 10/10 with [facility]. has rash on upper thighs-benadryl cream and Claritin. ACOG First Trimester First Trimester: Desire for , Alcohol, Tobacco Cessation, Illicit/Recreational Drug/Substance Use, Intimate Partner Violence, Barriers to care, Unstable Housing, Communication Barriers, Environmental/Work Hazards, Anticipated Course of Care, Toxoplasmosis Precations, Use of Any medications, Sexual activity, Exercise, Dental Care, Sauna/Hot tub use, Seat Belt use, Childbirth classes/Hospital facilities, Travel, Indications for Ultrasound and Screening for Aneuploidy; Discussed Second Trimester Second Trimester: Signs and Symptoms of Labor, Selecting a care provider, Reproductive Life Planning & Contreception, Care Planning, Tobacco Cessation, Depression/Anxiety and Intimate Partner Violence Third Trimester Third Trimester: Pain Management Plans, Labor support person(s), Immediate Larc and Movement Monitoring; Discussed Trial of Labor after Counseling and Discussed Circumcision preference ROS Const Reports system reviewed and no additional complaints, except as documented Eyes Reports system reviewed and no additional complaints, except as documented ENT Reports system reviewed and no additional complaints, except as documented Card Reports system reviewed and no additional complaints, except as documented Resp Reports system reviewed and no additional complaints, except as documented GI Reports system reviewed and no additional complaints, except as documented, Denies nausea and Denies vomiting Reports system reviewed and no additional complaints, except as documented Musc Reports system reviewed and no additional complaints, except as documented Skin/Breast Reports system reviewed and no additional complaints, except as documented Neuro Yes system reviewed and no additional complaints, except as documented Psych Reports system reviewed and no additional complaints, except as documented Endo Reports system reviewed and no additional complaints, except as documented Paolo/Lymph Reports system reviewed and no additional complaints, except as documented Aller/Immun Reports system reviewed and no additional complaints, except as documented Exam Const General: cooperative, healthy appearing and no acute distress Orientation: alert, awake and oriented x3 Neck Neck: normal visual inspection and full ROM Resp Effort & Inspection: normal respiratory effort, able to speak in complete sentences and symmetric chest movement GI Inspection: normal to inspection Palpation: soft and other Other: gravid Skin General: no rashes or lesions noted Neuro General: patient alert, patient awake and patient oriented x3 Cognition: normal cognition Speech: speech normal Gait: normal gait Motor: muscle tone normal throughout Extrem General: normal to inspection and full ROM Psych Appearance: grossly normal Mental Status: mental status grossly normal Mood: congruent mood Affect: normal affect Speech and Movement: speech and movement normal Attitude: cooperative Thought Process: normal Thought Content: normal Judgment: judgment good Results POC Urinalysis 2 Dip (Clinic) Office Urine Glucose Negative Last Edit by Krystina Wolfe on 09/19/24 14:17 Office Urine Protein Negative Last Edit by Krystina Wolfe on 09/19/24 14:17 Coding Level of Care Code OB Routine Diagnoses History of miscarriage, currently O09.299 History of delivery, currently O34.219 Obesity affecting O99.210 Supervision of high-risk O09.90 17 weeks gestation of Z3A.17 Weeks of gestation: 17 weeks Anxiety and depression F41.9; F32.9 Assessment and Plan Assessment and Plan (1) History of miscarriage, currently : Status: Acute Comment: 2020- D&C @ 10wks; Trisomy 21 (2) History of delivery, currently : Status: Acute Comment: Desires (3) Obesity affecting : Status: Acute Comment: BMI 46.1; HgBA1C ordered w/NOB (4) Supervision of high-risk : Status: Acute Comment: PRR,, LITA 02/26/25, PC: Andreina & Stefania *TWINS*, BF Will (5) : Status: Acute Qualifiers: Weeks of gestation: 17 weeks Qualified Code(s): Z3A.17 - 17 weeks gestation of Comment: Discussed genetic/carrier testing - undecided (6) Anxiety and depression: Status: Acute Comment: IN THE PAST Orders: Orders POC Urinalysis 2 Dip (Clinic) Today Plan Details Additional Comments: ACOG trimester education reviewed and updated. see problem list details for updated plan management information and see below for orders placed at this visit. GA appropriate handout given. Clinical Quality Measures Falls Risk Screening/Assistive Devices Have you fallen in the past year?: No 09/19/24 9340 <Electronically signed by Ning lim CNM> Date _ Ning Oquendo CNM Cosigner Signature: Date (if applicable) CC: ~ [place] [employer] Work Phone: 1(676) 991-403105-07-2025 Evaluation note* Diagnosis Onset Date Resolution Status Admit Date Anxiety and depression acute Ma y 2024 2:41pm History of delivery , currently acute August 24, 2024 2:41pm History of miscarriage, currently acute August 24, 2024 2:41pm Obesity affecting acute August 24, 2024 2:41pm acute August 24, 2024 2:41pm Supervision of high-risk acute August 24, 2024 2: 41pm Anxiety and depression acute Francoise 2024 2:08pm History of delivery , currently acute September 19 2:08pm History of miscarriage, currently acute September 19 2:08pm Obesity affecting acute September 19, 2024 2:08pm acute September 19, 2024 2:08pm Supervision of high-risk acute September 19, 2024 2 :08pm Anxiety and depression acute Ju 2024 3:32pm History of delivery , currently acute October 17 3:32pm History of miscarriage, currently acute October 17 3:32pm Obesity affecting acute October 17, 2024 3:32pm acute October 17 3:32pm Supervision of high-risk acute October 17, 2024 3:32pm Anxiety and depression acute Ju ly 2024 1:32pm History of delivery , currently acute November 15 1:32pm History of miscarriage, currently acute November 15 1:32pm Obesity affecting acute November 15, 2024 1:32pm acute November 15 1:32pm PUPP (pruritic urticarial papules and plaques of ) acute November 15, 2024 1:32pm Supervision of high-risk acute November 15, 2024 1:32pm Anxiety and depression acute Au 2024 3:31pm History of delivery , currently acute December 06, 2024 3:31pm History of miscarriage, currently acute December 06, 2024 3:31pm Obesity affecting acute December 06, 2024 3:31pm acute December 06 025 3:31pm PUPP (pruritic urticarial papules and plaques of ) acute December 06 3:31pm Supervision of high-risk acute December 06 3:31pm [facility] Work Phone: 1(252) 384-864704-03-2025 Evaluation note* Diagnosis Onset Date Resolution Status Admit Date Spotting in early resolved July 21, 2024 9:49am Anxiety and depression acute Ap 2024 2:23pm History of delivery , currently acute July 29, 2 025 2:23pm History of miscarriage, currently acute July 29, 2 025 2:23pm Obesity affecting acute July 29, 2024 2:23pm acute July 29 2:23pm Supervision of high-risk acute July 29, 2024 2:23pm History of twin in prior resolved July 29, 2024 2:23pm Spotting in early resolved July 29, 2024 2:23pm Anxiety and depression acute Ma y 2024 2:41pm History of delivery , currently acute August 24, 2024 2:41pm History of miscarriage, currently acute August 24, 2024 2:41pm Obesity affecting acute August 24, 2024 2:41pm acute August 24, 2024 2:41pm Supervision of high-risk acute August 24, 2024 2: 41pm Anxiety and depression acute Ju ne 2024 2:08pm History of delivery , currently acute September 19 2:08pm History of miscarriage, currently acute September 19 2:08pm Obesity affecting acute September 19, 2024 2:08pm acute September 19, 2024 2:08pm Supervision of high-risk acute September 19, 2024 2 :08pm Anxiety and depression acute Ju ne 2024 3:32pm History of delivery , currently acute October 17 3:32pm History of miscarriage, currently acute October 17 3:32pm Obesity affecting acute October 17, 2024 3:32pm acute October 17 3:32pm Supervision of high-risk acute October 17, 2024 3:32pm [facility] Work Phone: 1(200) 543-161004-03-2025 Evaluation note* Diagnosis Onset Date Resolution Status Admit Date Spotting in early resolved July 21, 2024 9:49am Anxiety and depression acute Ap ril 2024 2:23pm History of delivery , currently acute July 29, 2 025 2:23pm History of miscarriage, currently acute July 29 2 025 2:23pm Obesity affecting acute July 29, 2024 2:23pm acute July 29 2:23pm Supervision of high-risk acute July 29, 2024 2:23pm History of twin in prior resolved July 29, 2024 2:23pm Spotting in early resolved July 29, 2024 2:23pm Anxiety and depression acute Ma y 2024 2:41pm History of delivery , currently acute August 24, 2024 2:41pm History of miscarriage, currently acute August 24, 2024 2:41pm Obesity affecting acute August 24, 2024 2:41pm acute August 24, 2024 2:41pm Supervision of high-risk acute August 24, 2024 2: 41pm Anxiety and depression acute Ju 2024 2:08pm History of delivery , currently acute September 19 2:08pm History of miscarriage, currently acute September 19 2:08pm Obesity affecting acute September 19, 2024 2:08pm acute September 19, 2024 2:08pm Supervision of high-risk acute September 19, 2024 2 :08pm Anxiety and depression acute Ju ne 2024 3:32pm History of delivery , currently acute October 17 3:32pm History of miscarriage, currently acute October 17 3:32pm Obesity affecting acute October 17, 2024 3:32pm acute October 17 3:32pm Supervision of high-risk acute October 17, 2024 3:32pm Anxiety and depression acute Ju ly 2024 1:32pm History of delivery , currently acute November 15 1:32pm History of miscarriage, currently acute November 15 1:32pm Obesity affecting acute November 15, 2024 1:32pm acute November 15 1:32pm Supervision of high-risk acute November 15, 2024 1:32pm [facility] Work Phone: 1(801) 170-855602-19-2025 Evaluation note* Diagnosis Onset Date Resolution Status Admit Date Encounter for routine gynecological examination noneactive Februa ry 2024 8:50am Spotting in early acute July 21, 2024 9:49am Anxiety and depression acute Ap ril 2024 2:23pm History of delivery , currently acute July 29, 2 025 2:23pm History of miscarriage, currently acute July 29, 2 025 2:23pm History of twin in prior acute July 29, 2024 2:23pm Obesity affecting acute July 29, 2024 2:23pm acute July 29 2:23pm Spotting in early acute July 29, 2024 2:23pm Supervision of high-risk acute July 29, 2024 2:23pm Work Phone: 1(431) 461-224102-19-2025 Evaluation note* Diagnosis Onset Date Resolution Status Admit Date Encounter for routine gynecological examination noneactive Februa ry 2024 8:50am Spotting in early resolved July 21, 2024 9:49am Anxiety and depression acute Ap ril 2024 2:23pm History of delivery , currently acute July 29, 2 025 2:23pm History of miscarriage, currently acute July 29, 025 2:23pm Obesity affecting acute July 29, 2024 2:23pm acute July 29 2:23pm Supervision of high-risk acute July 29, 2024 2:23pm History of twin in prior resolved July 29, 2024 2:23pm Spotting in early resolved July 29, 2024 2:23pm Anxiety and depression acute Ma 2024 2:41pm History of delivery , currently acute August 24, 2024 2:41pm History of miscarriage, currently acute August 24, 2024 2:41pm Obesity affecting acute August 24, 2024 2:41pm acute August 24, 2024 2:41pm Supervision of high-risk acute August 24, 2024 2: 41pm Anxiety and depression acute 2024 2:08pm History of delivery , currently acute September 19 2:08pm History of miscarriage, currently acute September 19 2:08pm Obesity affecting acute September 19, 2024 2:08pm acute September 19, 2024 2:08pm Supervision of high-risk acute September 19, 2024 2 :08pm [facility] Work Phone: [phone] 104-938012-06-2023 NotePap Smear Specimen AdequacyDecember 2022 1:51pmComment.Satisfactory for evaluation. Endocervical and/or squamous metaplasticcells (endocervical component)are present.[facility] INTERFACED A#[id number] on above:Satisfactory for evaluation. Endocervical and/or squamous metaplasticcells (endocervical component)are present.03-25-2023 NotePap Smear Specimen AdequacyDecember 2022 1:51pmComment.Satisfactory for evaluation. Endocervical and/or squamous metaplasticcells (endocervical component)are present.[facility] INTERFACED A#[id number] on above:Satisfactory for evaluation. Endocervical and/or squamous metaplasticcells (endocervical component)are present.Evaluation note* Diagnosis Onset Date Resolution Status Infertility acute Irregular menses acute Screen for STD (sexually transmitted disease) acute Morbid obesity chronic Encounter for routine gynecological examination noneactive Work Phone: Evaluation note* Diagnosis Onset Date Resolution Status Infertility acute Irregular menses acute Morbid obesity chronic Encounter for routine gynecological examination noneactive Possible exposure to STD non eactive Oral contraception initial prescription noneactive Monilial vaginitis noneactiv e Work Phone: Reason for referral (narrative)No reason for referral information availableWParkview [facility] Work Phone: Summary Purpose Family History Relationship Condition Age at Onset Recorded Date/T carter grandfather Malignant neoplasm Unknown father Diabetes mellitus Unknown Breast Cancer Status:Active Comments:Sister. Cancer Status:Active Comments:throat [...] Status:Active Comments:Materna l Grandmother. Osteoarthritis Status:Active Comments:Father. Relationship Condition Age at Onset Recorded Date/T carter grandfather Malignant neoplasm Unknown father Diabetes mellitus Unknown sister Malignant neoplasm Unknown Advance Directives Advance Directive Response Recorded Date/ Time Advance Directives No November 14 10:50am Living Will No December 11 12:30pm Power of Senior Loan Processor No December 11, 021 12:30pm Advance Directive Response Recorded Date/ Time Living Will No December 11 1:30pm Do you have a Healthcare Power of Senior Loan Processor? No December 11, 2020 1:30pm Advance Directives No July 01, 025 1:27pm Advance Directive Response Recorded Date/ Time Living Will No December 11 1:30pm Do you have a Healthcare Power of Senior Loan Processor? No December 11, 2020 1:30pm Advance Directives No August 04, 2 025 2:29pm Advance Directive Response Recorded Date/ Time Advance Directives No August 04 025 2:29pm Chief Complaint and Reason for Visit Chief Complaint Annual (CLERICAL COORDINATOR) Reason for Visit Infertility Irregular menses Screen for STD (sexually transmitted disease) Morbid obesity Encounter for routine gynecological examination Chief Complaint Annual (CLERICAL COORDINATOR) possible yeast infection Reason for Visit Infertility Irregular menses Morbid obesity Encounter for routine gynecological examination Possible exposure to STD Oral contraception initial prescription Monilial vaginitis Chief Complaint Admit Date Annual (CLERICAL COORDINATOR) June 08, 2024 8:50am Amb Documentation July 08, 2024 9:0 4am spotting in early July 21 025 9:49am New OB, LMP /2, LITA 02/26July 29 2:23pm Reason for Visit Admit Date Encounter for routine gynecological exam ination June 08, 2024 8:50am Spotting in early July 21 025 9:49am Anxiety and depression July 29, 2024 2:23pm History of delivery, currently July 29, 2024 2:23pm History of miscarriage, currently pregna nt July 29, 2024 2:23pm History of twin in prior pregn paula July 29, 2024 2:23pm Obesity affecting July 29, 2024 2:23pm July 29, 2024 2:2 3pm Spotting in early July 29, 2024 2:23pm Supervision of high-risk July 29, 2024 2:23pm Chief Complaint Admit Date Annual (CLERICAL COORDINATOR) June 08, 2024 8:50am Amb Documentation July 08, 2024 9:0 4am spotting in early July 21, 2 025 9:49am New OB, LMP 2/2, LITA 02/26July 29 2:23pm rpt clean catch/culture per KW July 2:22pm Chief Complaint Admit Date Annual (CLERICAL COORDINATOR) June 08, 2024 8:50am Amb Documentation July 08, 2024 9:0 4am spotting in early July 21, 025 9:49am New OB, LMP 2/2, LITA 02/26July 29 2:23pm rpt clean catch/culture per KW July 2:22pm 13wk OB * August 24, 2024 2:41pm 17 wk ob * September 19, 2024 2:08p m Reason for Visit Admit Date Encounter for routine gynecological exam ination June 08, 2024 8:50am Spotting in early July 21 025 9:49am Anxiety and depression July 29, 2024 2:23pm History of delivery, currently July 29, 2024 2:23pm History of miscarriage, currently pregna nt July 29, 2024 2:23pm Obesity affecting July 29, 2024 2:23pm July 29, 2024 2:2 3pm Supervision of high-risk July 29, 2024 2:23pm History of twin in prior pregn paula July 29, 2024 2:23pm Spotting in early July 29, 2024 2:23pm Anxiety and depression August 24, 2024 2:4 1pm History of delivery, currently August 24, 2024 2:41pm History of miscarriage, currently pregna nt August 24, 2024 2:41pm Obesity affecting August 24 2:41pm August 24, 2024 2:41pm Supervision of high-risk August 242024 2:41pm Anxiety and depression September 19, 2024 2: 08pm History of delivery, currently September 19, 2024 2:08pm History of miscarriage, currently pregna nt September 19, 2024 2:08pm Obesity affecting September 19 2:08pm September 19, 2024 2:08p m Supervision of high-risk September 19, 2024 2:08pm Chief Complaint Admit Date Amb Documentation July 08, 2024 9:0 4am spotting in early July 21, 2 025 9:49am New OB, LMP /2, LITA 02/26July 29 2:23pm rpt clean catch/culture per KW July 2:22pm 13wk OB * August 24, 2024 2:41pm 17 wk ob * September 19, 2024 2:08p m 21 wk ob * October 17, 2024 3:32 pm Reason for Visit Admit Date Spotting in early July 21, 2 025 9:49am Anxiety and depression July 29, 2024 2:23pm History of delivery, currently July 29, 2024 2:23pm History of miscarriage, currently pregna nt July 29, 2024 2:23pm Obesity affecting July 29, 2024 2:23pm July 29, 2024 2:2 3pm Supervision of high-risk July 29, 2024 2:23pm History of twin in prior pregn puala July 29, 2024 2:23pm Spotting in early July 29, 2024 2:23pm Anxiety and depression August 24, 2024 2:4 1pm History of delivery, currently August 24, 2024 2:41pm History of miscarriage, currently pregna nt August 24, 2024 2:41pm Obesity affecting August 24 2:41pm August 24, 2024 2:41pm Supervision of high-risk August 242024 2:41pm Anxiety and depression September 19, 2024 2: 08pm History of delivery, currently September 19, 2024 2:08pm History of miscarriage, currently pregna nt September 19, 2024 2:08pm Obesity affecting September 19 2:08pm September 19, 2024 2:08p m Supervision of high-risk September 19, 2024 2:08pm Anxiety and depression October 17, 2024 3 :32pm History of delivery, currently October 17, 2024 3:32pm History of miscarriage, currently pregna nt October 17, 2024 3:32pm Obesity affecting October 17 025 3:32pm October 17, 2024 3:32 pm Supervision of high-risk October 17, 2024 3:32pm Chief Complaint Admit Date spotting in early July 21 2 025 9:49am New OB, LMP /, LITA 02/26July 29 2:23pm rpt clean catch/culture per KW July 2:22pm 13wk OB * August 24, 2024 2:41pm 17 wk ob * September 19, 2024 2:08p m 21 wk ob * October 17, 2024 3:32 pm 25wk ob * November 15, 2024 1:32 pm Reason for Visit Admit Date Spotting in early July 21 025 9:49am Anxiety and depression July 29, 2024 2:23pm History of delivery, currently July 29, 2024 2:23pm History of miscarriage, currently pregna nt July 29, 2024 2:23pm Obesity affecting July 29, 2024 2:23pm July 29, 2024 2:2 3pm Supervision of high-risk July 29, 2024 2:23pm History of twin in prior pregn paula July 29, 2024 2:23pm Spotting in early July 29, 2024 2:23pm Anxiety and depression August 24, 2024 2:4 1pm History of delivery, currently August 24, 2024 2:41pm History of miscarriage, currently pregna nt August 24, 2024 2:41pm Obesity affecting August 24 2:41pm August 24, 2024 2:41pm Supervision of high-risk August 242024 2:41pm Anxiety and depression September 19, 2024 2: 08pm History of delivery, currently September 19, 2024 2:08pm History of miscarriage, currently pregna nt September 19, 2024 2:08pm Obesity affecting September 19 2:08pm September 19, 2024 2:08p m Supervision of high-risk September 19, 2024 2:08pm Anxiety and depression October 17, 2024 3 :32pm History of delivery, currently October 17, 2024 3:32pm History of miscarriage, currently pregna nt October 17, 2024 3:32pm Obesity affecting October 17 025 3:32pm October 17, 2024 3:32 pm Supervision of high-risk October 17, 2024 3:32pm Anxiety and depression November 15, 2024 1 :32pm History of delivery, currently November 15, 2024 1:32pm History of miscarriage, currently pregna nt November 15, 2024 1:32pm Obesity affecting November 15 025 1:32pm November 15, 2024 1:32 pm Supervision of high-risk November 15, 2024 1:32pm Chief Complaint Admit Date 13wk OB * August 24, 2024 2:41pm 17 wk ob * September 19, 2024 2:08p m 21 wk ob * October 17, 2024 3:32 pm 25wk ob * November 15, 2024 1:32 pm 28wk ob/glucose December 06, 2024 3: 31pm Reason for Visit Admit Date Anxiety and depression August 24, 2024 2:4 1pm History of delivery, currently August 24, 2024 2:41pm History of miscarriage, currently pregna nt August 24, 2024 2:41pm Obesity affecting August 24 2:41pm August 24, 2024 2:41pm Supervision of high-risk August 242024 2:41pm Anxiety and depression September 19, 2024 2: 08pm History of delivery, currently September 19, 2024 2:08pm History of miscarriage, currently pregna nt September 19, 2024 2:08pm Obesity affecting September 19 2:08pm September 19, 2024 2:08p m Supervision of high-risk September 19, 2024 2:08pm Anxiety and depression October 17, 2024 3 :32pm History of delivery, currently October 17, 2024 3:32pm History of miscarriage, currently pregna nt October 17, 2024 3:32pm Obesity affecting October 17 025 3:32pm October 17, 2024 3:32 pm Supervision of high-risk October 17, 2024 3:32pm Anxiety and depression November 15, 2024 1 :32pm History of delivery, currently November 15, 2024 1:32pm History of miscarriage, currently pregna nt November 15, 2024 1:32pm Obesity affecting November 15 025 1:32pm November 15, 2024 1:32 pm PUPP (pruritic urticarial papules and pl aques of ) November 15, 2024 1:32pm Supervision of high-risk November 15, 2024 1:32pm Anxiety and depression December 06, 2024 3:31pm History of delivery, currently December 06, 2024 3:31pm History of miscarriage, currently pregna nt December 06, 2024 3:31pm Obesity affecting December 06, 2024 3:31pm December 06, 2024 3: 31pm PUPP (pruritic urticarial papules and pl aques of ) December 06, 2024 3:31pm Supervision of high-risk Augus t 2024 3:31pm Additional Source Comments INFORMATION SOURCE (unrecogn ized section and content) DATE CREATED AUTHOR 06/03/2018 [facility] DATE CREATED AUTHOR AUTHOR'S ORGANIZ ATION 10/20/2018 [facility] ([place]) DATE CREATED AUTHOR AUTHOR'S ORGANIZ ATION 03/26/2021 [facility] DATE CREATED AUTHOR AUTHOR'S ORGANIZ ATION 10/28/2024 [facility] DATE CREATED AUTHOR AUTHOR'S ORGANIZ ATION 12/08/2024 [facility] [place] Care Teams (unrecognized sec tion and content) Team Status: Active Member Role Status Dates Louise GILES PA-C Family Provider Active Louise GILES PA-C Primary Care Provider Active Team Status: Inactive Member Role Status Dates Louise GILES PA-C Primary Care Provider, Referri ng Provider Active Jenny So CNM Attending Provider Active Team Status: Inactive Member Role Status Dates Louise Moon PA, PA-C Primary Care Provider Active Jenny So CNM Attending Provider, Referring Pr ovider Active Team Status: Inactive Member Role Status Dates Louise Moon PA, PA-C Primary Care Provider, Referri ng Provider Active Bessie Mansfield SEATING CAPTAIN, SEATING CAPTAIN-C Attending Provider Active Team Status: Inactive Member Role Status Dates Louise Moon PA, PA-C Primary Care Provider Active Bessie Mansfield SEATING CAPTAIN, SEATING CAPTAIN-C Attending Provider, Referring Provider Active Team Status: Inactive Member Role Status Dates Louise Moon PA, PA-C Primary Care Provider Active Start: June 08, 2024 End: June 08, 2024 Louisesaniya Moon PA, PA-C Referring Provider Active Start: June 08, 2024 End: June 08, 2024 Leeann Hawkins NP-C Attending Provider Active Start: June 08, 2024 End: June 08, 2024 Team Status: Active Member Role Status Dates Louise Moon PA, PA-C Primary Care Provider Active Start: July 08, 2024 Hannah Mercado RN Attending Provider Active St art: July 08, 2024 Team Status: Inactive Member Role Status Dates Louise Moon PA, PA-C Primary Care Provider Active Start: July 21, 2024 End: July 21, 2024 Louise Moon PA, PA-C Referring Provider Active Start: July 21, 2024 End: July 21, 2024 Ning Oquendo CNM Attending Provider Active S tart: July 21, 2024 End: July 21, 2024 Team Status: Inactive Member Role Status Dates Louise Moon PA, PA-C Primary Care Provider Active Start: July 29, 2024 End: July 29, 2024 Louise Moon PA, PA-C Referring Provider Active Start: July 29, 2024 End: July 29, 2024 Jenny So CNM Attending Provider Active Start: July 29, 2024 End: July 29, 2024 Team Status: Inactive Member Role Status Dates Louise Moon PA, PA-C Primary Care Provider Active Start: July 29, 2024 End: July 29, 2024 Jenny So CNM Attending Provider Active Start: July 29, 2024 End: July 29, 2024 Jenny So CNM Referring Provider Active Start: July 29, 2024 End: July 29, 2024 Team Status: Inactive Member Role Status Dates Louise Hills PA, PA-C Primary Care Provider Active Start: August 05, 2024 End: August 05, 2024 Louise Moon PA, PA-C Referring Provider Active Start: August 05, 2024 End: August 05, 2024 Ning Oquendo CNM Attending Provider Active S tart: August 05, 2024 End: August 05, 2024 Team Status: Inactive Member Role Status Dates Louisesaniya Moon PA, PA-C Primary Care Provider Active Start: August 05, 2024 End: August 05, 2024 Ning Oquendo CNM Attending Provider Active S tart: August 05, 2024 End: August 05, 2024 Ning Oquendo CNM Referring Provider Active S tart: August 05, 2024 End: August 05, 2024 Team Status: Inactive Member Role Status Dates Louisesaniya Moon PA, PA-C Primary Care Provider Active Start: August 24, 2024 End: August 24, 2024 Louise Winslow PA, PA-C Referring Provider Active Start: August 24, 2024 End: August 24, 2024 Dr. Amee Schaffer MD Attending Provider Active Start: August 24, 2024 End: August 24, 2024 Team Status: Inactive Member Role Status Dates Louise Moon PA, PA-C Primary Care Provider Active Start: September 19, 2024 End: September 19, 2024 Louise Winslow PA, PA-C Referring Provider Active Start: September 19, 2024 End: September 19, 2024 Ning Oquendo CNM Attending Provider Active S tart: September 19, 2024 End: September 19, 2024 Team Status: Active Member Role/Relationship Status Dates Louise Winslow PA, PA-C Family Provider Active Louise Moon PA, PA-C Primary Care Provider Active Team Status: Active Member Role/Relationship Status Dates Louisesaniya Moon PA, PA-C Primary Care Provider Active Start: July 08, 2024 Hannah Mercado RN Attending Provider Active St art: July 08, 2024 Team Status: Inactive Member Role/Relationship Status Dates Louise Hills PA, PA-C Primary Care Provider Active Start: July 21, 2024 End: July 21, 2024 Louise Moon PA, PA-C Referring Provider Active Start: July 21, 2024 End: July 21, 2024 Ning Oquendo CNM Attending Provider Active S tart: July 21, 2024 End: July 21, 2024 Team Status: Inactive Member Role/Relationship Status Dates Louise Moon PA, PA-C Primary Care Provider Active Start: July 29, 2024 End: July 29, 2024 Louisesaniya Moon PA, PA-C Referring Provider Active Start: July 29, 2024 End: July 29, 2024 Jenny So CNM Attending Provider Active Start: July 29, 2024 End: July 29, 2024 Team Status: Inactive Member Role/Relationship Status Dates Louise Moon PA, PA-C Primary Care Provider Active Start: July 29, 2024 End: July 29, 2024 Jenny So CNM Attending Provider Active Start: July 29, 2024 End: July 29, 2024 Jenny So CNM Referring Provider Active Start: July 29, 2024 End: July 29, 2024 Team Status: Inactive Member Role/Relationship Status Dates Louise Moon PA, PA-C Primary Care Provider Active Start: August 05, 2024 End: August 05, 2024 Louisesaniya Moon PA, PA-C Referring Provider Active Start: August 05, 2024 End: August 05, 2024 Ning Oquendo CNM Attending Provider Active S tart: August 05, 2024 End: August 05, 2024 Team Status: Inactive Member Role/Relationship Status Dates Louise Moon PA, PA-C Primary Care Provider Active Start: August 05, 2024 End: August 05, 2024 Ning Oquendo CNM Attending Provider Active S tart: August 05, 2024 End: August 05, 2024 Ning Oquendo CNM Referring Provider Active S tart: August 05, 2024 End: August 05, 2024 Team Status: Inactive Member Role/Relationship Status Dates Louise Moon PA, PA-C Primary Care Provider Active Start: August 24, 2024 End: August 24, 2024 Louisesaniya Moon PA, PA-C Referring Provider Active Start: August 24, 2024 End: August 24, 2024 Dr. Amee Schaffer MD Attending Provider Active Start: August 24, 2024 End: August 24, 2024 Team Status: Inactive Member Role/Relationship Status Dates Louise Moon PA, PA-C Primary Care Provider Active Start: September 19, 2024 End: September 19, 2024 Louisesaniya Moon PA, PA-C Referring Provider Active Start: September 19, 2024 End: September 19, 2024 Ning Oquendo CNM Attending Provider Active S tart: September 19, 2024 End: September 19, 2024 Team Status: Inactive Member Role/Relationship Status Dates Louise Moon PA, PA-C Primary Care Provider Active Start: October 17, 2024 End: October 17, 2024 Louise Moon PA, PA-C Referring Provider Active Start: October 17, 2024 End: October 17, 2024 Bessie Mansfield SEATING CAPTAIN, SEATING CAPTAIN-C Attending Provider Active Start: October 17, 2024 End: October 17, 2024 Team Status: Inactive Member Role/Relationship Status Dates Louise Moon PA, PA-C Primary Care Provider Active Start: July 21, 2024 End: July 21, 2024 Louisesaniya Moon PA, PA-C Referring Provider Active Start: July 21, 2024 End: July 21, 2024 Ning Oquendo CNM Attending Provider Active S tart: July 21, 2024 End: July 21, 2024 Team Status: Inactive Member Role/Relationship Status Dates Louise Moon PA, PA-C Primary Care Provider Active Start: July 29, 2024 End: July 29, 2024 Louisesaniya Moon PA, PA-C Referring Provider Active Start: July 29, 2024 End: July 29, 2024 Jenny So CNM Attending Provider Active Start: July 29, 2024 End: July 29, 2024 Team Status: Inactive Member Role/Relationship Status Dates Louise Moon PA, PA-C Primary Care Provider Active Start: July 29, 2024 End: July 29, 2024 Jenny So CNM Attending Provider Active Start: July 29, 2024 End: July 29, 2024 Jenny So CNM Referring Provider Active Start: July 29, 2024 End: July 29, 2024 Team Status: Inactive Member Role/Relationship Status Dates Louise Moon PA, PA-C Primary Care Provider Active Start: August 05, 2024 End: August 05, 2024 Louise Moon PA, PA-C Referring Provider Active Start: August 05, 2024 End: August 05, 2024 Ning Oquendo CNM Attending Provider Active S tart: August 05, 2024 End: August 05, 2024 Team Status: Inactive Member Role/Relationship Status Dates Louise Moon PA, PA-C Primary Care Provider Active Start: August 05, 2024 End: August 05, 2024 Ning Oquendo CNM Attending Provider Active S tart: August 05, 2024 End: August 05, 2024 Ning Oquedno CNM Referring Provider Active S tart: August 05, 2024 End: August 05, 2024 Team Status: Inactive Member Role/Relationship Status Dates Louise Moon PA, PA-C Primary Care Provider Active Start: August 24, 2024 End: August 24, 2024 Louisesaniya Moon PA, PA-C Referring Provider Active Start: August 24, 2024 End: August 24, 2024 Dr. Amee Schaffer MD Attending Provider Active Start: August 24, 2024 End: August 24, 2024 Team Status: Inactive Member Role/Relationship Status Dates Louise Moon PA, PA-C Primary Care Provider Active Start: September 19, 2024 End: September 19, 2024 Louise Moon PA, PA-C Referring Provider Active Start: September 19, 2024 End: September 19, 2024 Ning Oquendo CNM Attending Provider Active S tart: September 19, 2024 End: September 19, 2024 Team Status: Inactive Member Role/Relationship Status Dates Louise Moon PA, PA-C Primary Care Provider Active Start: October 17, 2024 End: October 17, 2024 Louise Moon PA, PA-C Referring Provider Active Start: October 17, 2024 End: October 17, 2024 Bessie Mansfield NP, SEATING CAPTAIN-C Attending Provider Active Start: October 17, 2024 End: October 17, 2024 Team Status: Inactive Member Role/Relationship Status Dates Louise Moon PA, PA-C Primary Care Provider Active Start: November 15, 2024 End: November 15, 2024 Louisesaniya Moon PA, PA-C Referring Provider Active Start: November 15, 2024 End: November 15, 2024 Bessie Mansfield NP, SEATING CAPTAIN-C Attending Provider Active Start: November 15, 2024 End: November 15, 2024 Team Status: Active Member Role/Relationship Status Dates Luoise Moon PA, PA-C Primary Care Provider Active Team Status: Inactive Member Role/Relationship Status Dates Louise Moon PA, PA-C Primary Care Provider Active Start: August 24, 2024 End: August 24, 2024 Louise Moon PA, PA-C Referring Provider Active Start: August 24, 2024 End: August 24, 2024 Dr. Amee Scahffer MD Attending Provider Active Start: August 24, 2024 End: August 24, 2024 Team Status: Inactive Member Role/Relationship Status Dates Louise Moon PA, PA-C Primary Care Provider Active Start: September 19, 2024 End: September 19, 2024 Louisesaniya Moon PA, PA-C Referring Provider Active Start: September 19, 2024 End: September 19, 2024 Ning Oquendo CNM Attending Provider Active S tart: September 19, 2024 End: September 19, 2024 Team Status: Inactive Member Role/Relationship Status Dates Louise Moon PA, PA-C Primary Care Provider Active Start: October 17, 2024 End: October 17, 2024 Louise Moon PA, PA-C Referring Provider Active Start: October 17, 2024 End: October 17, 2024 Bessie Mansfield SEATING CAPTAIN, SEATING CAPTAIN-C Attending Provider Active Start: October 17, 2024 End: October 17, 2024 Team Status: Inactive Member Role/Relationship Status Dates Louise Moon PA, PA-C Primary Care Provider Active Start: November 15, 2024 End: November 15, 2024 Louise Moon PA, PA-C Referring Provider Active Start: November 15, 2024 End: November 15, 2024 Bessie Mansfield SEATING CAPTAIN, SEATING CAPTAIN-C Attending Provider Active Start: November 15, 2024 End: November 15, 2024 Team Status: Active Member Role/Relationship Status Dates Louise Moon PA, PA-C Primary Care Provider Active Start: December 06, 2024 Bessie Mansfield SEATING CAPTAIN, SEATING CAPTAIN-C Attending Provider Active Start: December 06, 2024 Bessie Mansfield SEATING CAPTAIN, SEATING CAPTAIN-C Referring Provider Active Start: December 06, 2024 Team Status: Inactive Member Role/Relationship Status Dates Louise Moon PA, PA-C Primary Care Provider Active Start: December 06, 2024 End: December 06, 2024 Louise GILES PA-C Referring Provider Active Start: December 06, 2024 End: December 06, 2024 GAVIN Rudd NP Attending Provider Active Start: December 06, 2024 End: December 06, 2024 Team Status: Inactive Member Role/Relationship Status Dates Louise GILES PA-C Primary Care Provider Active Start: December 06, 2024 End: December 06, 2024 GAVIN Rudd NP Attending Provider Active Start: December 06, 2024 End: December 06, 2024 GAVIN Rudd NP Referring Provider Active Start: December 06, 2024 End: December 06, 2024 Goals (unrecognized section and content) Goals may be documented in a n alternate sectionGoals may be documented in an alternate sectionGoals may be documented in an alternate sectionGoals may be documented in an alternate sectionGoals may be documented in an alternate sectionGoals may be documented in an alternate sectionGoals may be documented in an alternate sectionGoals may be documented in an alternate sectionGoals may be documented in an alternate sectionGoals may be documented in an alternate section FOR RECORDS PERTAINING TO PATIENTS WHO ARE [...] BE BASED ON THE PRIMARY CLINICAL RECORDS. [employer] provides no warranty or guarantee of the accuracy or completeness of information in this document.
[2024-12-13 07:20] LABS: Glucose GTT-Gestation. Fasting 87 mg/dL (<105)
[2024-12-13 09:34] LABS: Glucose GTT-Gestational 1 Hr 134 mg/dL (<190)
[2024-12-13 10:31] LABS: Glucose GTT-Gestational 2 Hr 169 mg/dL (<165)
[2024-12-13 11:52] LABS: Glucose GTT-Gestational 3 Hr 97 L (<145)
== END | disposition home or self-care (01) ==
LOC: LAB 06:50
PROVIDERS: PCP Family Medicine; Referring Provider Nurse Practitioner Women's Health; Visit Provider Nurse Practitioner Women's Health
DX: Z13.1 Encounter for screening for diabetes mellitus (principal)
CPT/HCPCS: 36415; 82951; 82952

== ENCOUNTER 2025-01-01 08:55 | Outpatient (CLI) | payer OTHER, MEDICAID, SELFPAY ==
--- OUTSIDE RECORDS SUMMARY | 2025-01-01 09:04 | XMS RPT_ITS | CCD ---
Author Organization [facility] Care Team Providers Care Operational Trainer Name Role Phone SHARAN JEFFREY Attending Unavailable [...] Primary Care Provider ERIK Hooper Referring Provider ARAVIND So Attending Provider [phone] Colleen Cedillo CNM Unavailable Broderick supervisor testing, . . Unavailable General Surgery Provider Unavailable Unavail able Bandar PUENTES, Kristin Swan Unavailable Aiden PUENTES, Jame Kaur Unavailable Isrrael PUENTES, Mervin Gonzalez Unavailable Sarai CHANEYC, Louise Marcelo Unavailable [phone] Vess PROCESS STEWARD, Jerry L Unavailable Unavailable Arnulfo PROCESS STEWARD, Leny E Unavailable Unavailable Félix EPPS, Brooke Thomas Unavailable Unavailable Nathan PROCESS STEWARD, Zeinab Che Unavailable Unavailab nena Siddiqui PROCESS STEWARD, Mallory Unavailable Unavailabl franklyn Be PA-C, Porsha Saldivar Unavailable Alexsandra PROCESS STEWARD, Yolande K Unavailable Unamiya Tobar NP-C, Skinny Richards Unavailable Franko PROCESS STEWARD, Veronica Unavailable Unavailable Adithya SCHMIDT, Mary Unavailable Unavailable Unavailable Unavailable Unavailable Unavailable Shyla LICENSED MARINE ENGINEER, LICENSED MARINE ENGINEER-C Bessie Attending Provider Spenser TAMEZN, Aracelis Unavailable Unavailable Adriana EPPS, Ren Unavailable Unavailable Louise Moon PA-C Primary Care Provider Louise Moon PA-C Referring Provider Ross CORTEZ-CLeeann Attending Provider Hannah Mercado RN Attending Provider UnavailNing Jj CNM Attending Provider Jenny So CNM Attending Provider Jenny So CNM Referring Provider Ning Oquendo CNM Referring Provider Manuel PUENTES, Dr. Lubin Attending Provider [phone] Louise Moon PA-C Primary Care Provider Louise Moon PA-C Referring Provider Shyla CORTEZ-CBessie Attending Provider AMEE SCHAFFER MD Admitting Unavailab AMEE Bravo MD Primary Care Unavailab AMEE Bravo MD Attending Unavailab [facility], LOUISE PAC Consulting Unavailable PROVIDER, UNKNOWN Consulting Unavailable JAZMYN HO DO Admitting Unavailable JAZMYN HO DO Primary Care Unavailable JAZMYN HO DO Attending Unavailable SHARON, LOUISE PAC Consulting Unavailable PROVIDER, UNKNOWN Consulting Unavailable SHARON, LOUISE Admitting Unavailable SHARON, LOUISE Primary Care Unavailable SHARON, LOUISE Attending Unavailable SHARON, LOUISE PAC Consulting Unavailable PROVIDER, UNKNOWN Consulting Unavailable Benson PA-C, Louise Primary Care Provider [phone] Benson PA-C, Louise Primary Care Provider Benson PA-C, Louise Referring Provider [phone] Ning Oquendo CNM Attending Provider [phone] Shyla LICENSED MARINE ENGINEER-CBessie Referring Provider [phone] Dr. Mallory Dover DO Attending Provider Shyla LICENSED MARINE ENGINEERBessie Referring Unavailable Shyla LICENSED MARINE ENGINEERBessie Attending Unavailable Benson PA, Louise Primary Care Unavailable So, Jenny Referring Unavailable Miguel Sosay Attending Unavailable Benson PA, Louise Primary Care Unavailable Ning Oquendo Referring Unavailable Ning Oquendo Attending Unavailable Benson PA, Louise Primary Care Unavailable Shyla LICENSED MARINE ENGINEERBessie Referring Unavailable Shyla LICENSED MARINE ENGINEERBessie Attending Unavailable Benson PA, Louise Primary Care Unavailable Ning Oquendo Attending Unavailable Benson PA, Louise Primary Care Unavailable Benson PA, Louise Referring Unavailable Hannah Mercado Attending Unavailable Benson PA, Louise Primary Care Unavailable So Jenny Attending Unavailable Benson PA, Louise Primary Care Unavailable Benson PA, Louise Referring Unavailable Benson PA, Louise Referring Unavailable Ning Oquendo Attending Unavailable Benson PA, Louise Primary Care Unavailable Benson PA, Louise Referring Unavailable Amee Schaffer Attending Unavailable Benson PA, Louise Primary Care Unavailable Benson PA, Louise Referring Unavailable Ning Oquendo Attending Unavailable Benson PA, Louise Primary Care Unavailable Benson PA, Louise Referring Unavailable Shyla LICENSED MARINE ENGINEER, Bessie Attending Unavailable Benson PA, Louise Primary Care Unavailable Shyla LICENSED MARINE ENGINEER, Bessie Attending Unavailable Benson PA, Louise Primary Care Unavailable Benson PA, Louise Referring Unavailable Shyla LICENSED MARINE ENGINEER, Bessie Attending [facility] Unavailable [facility] Louise Referring Unavailable Mallory Dover [facility] Referring Unavailable Leeann Hawkins Attending Unavailable [facility] Unavailable [facility] [place] Referring Unavailable Allergies Allergy Classification Reported Allergen(s) Allergy Type Date of Onset Reaction(s) Facility (14 sources) Penicillins; Translations: [PENICILLINS] Propensity to adverse reactions to drug (disorder) 8 Rash [facility] Repository (18 sources) Penicillin V Drug Allergy [facility], [facility]. Medications Current Medications Medication Drug Class(es) Dates Sig (Normalized) Sig (Original) docosahexaenoic acid 200 mg oral capsule (9 sources) Start: 5 Docosahexaenoic Acid ( Dha) 200 mg capsule Active mg PO July 08, 2024 12:00am methylPREDNISolone 4 mg oral tablet (5 sources) Corticosteroid Start: 5 take 1 tablet by mouth once Methylprednisolone (Medrol (Melissa)) 4 mg tablets,dose pack Active 0 PO per package directions November 15, 2024 12:00am PO PER PKG DIR ondansetron 4 mg disintegrating oral tablet (7 sources) Serotonin-3 Receptor Antagonist Start: 5 take [...] {Milliliter} Refills: 0 Ordered: 14-Mar-2024 ARAVIND Cedillo Crystal K Start: 14-Mar-2024 Comments: Substitute: Semaglutide/Cyanocoba katie 5mg/0.5mg [...] {Milliliter} Refills: 0 Ordered: 11-Aug-2023 ARAVIND Cedillo K Start: 11-Aug-2023 Comments: Substitute: Semaglutide/Cyanocobalamin 1mg/0.5mg per [...] / oxyCODONE hydrochloride 5 mg oral tablet (12 sources) Opioid Agonist Start: 05-12-2018 End: 05-19-2018 Oxycodone-Acetaminoph en 1 TABLET tablet Discontinued 1 - 2 {tbl} PO EVERY 4 HOURS NEEDED as needed for Pain 28 7 0 May 12, 2018 1:00am May 18, 2018 [...] Heard Start: 09-Apr-2016 End: 10-Jul-2016 Status: Inactive Start: [...] hr Discontinued 300 mg PO EVERY MORNING 18 04April 27, 2023 2:36pm June 08, 2024 9:57am [...] Status: Inactive citalopram 20 mg oral tablet (12 sources) Serotonin Reuptake Inhibitor Start: 12-31-2017 End: [...] mg (4) tablet Discontinued 0 .ROUTE .COMPLEX 84 June 03, 2023 3:59pm June 08, 2024 9:57am TAKE 1 TABLET BY MOUTH EVERY DAY Start: 06-03-2023 End: 06-08-2024 take 1 tablet by mouth once daily Norethindrone-E.Estradiol-Iron (Blisovi 24 Fe) 1 mg-20 mcg (24)/75 mg (4) tablet Discontinued 0 .ROUTE .COMPLEX 84 June 03, 2023 3:59pm June 08, 2024 9:57am TAKE 1 TABLET BY MOUTH EVERY DAY Start: 06-03-2023 take 1 tablet by yenifer th once daily Norethindrone-E.Estradiol-Iron (Blisovi 24 Fe) 1 mg-20 mcg (24)/75 mg (4) tablet Active 0 .ROUTE .COMPLEX 84 June 03, 2023 2:59pm TAKE 1 TABLET BY MOUTH EVERY DAY Start: 02-19-2022 End: 03-25-2023 take 1 tablet by mouth once daily Norethindrone-E.Estradiol-Iron (Blisovi 24 Fe) 1 mg-20 mcg (24)/75 mg (4) tablet Discontinued 0 .ROUTE .COMPLEX 84 February 19, 2022 9:37am March 25, 2023 10:38am TAKE 1 TABLET BY MOUTH EVERY DAY Start: 02-19-2022 End: 03-25-2023 take 1 tablet by mouth once daily Norethindrone-E.Estradiol-Iron (Blisovi 24 Fe) 1 mg-20 mcg (24)/75 mg (4) tablet Discontinued 0 .ROUTE .COMPLEX 84 February 19, 2022 9:37am March 25, 2023 10:38am TAKE 1 TABLET BY MOUTH EVERY DAY Start: 02-19-2022 End: 03-25-2023 take 1 tablet by mouth once daily Norethindrone-E.Estradiol-Iron (Blisovi 24 Fe) 1 mg-20 mcg (24)/75 mg (4) tablet Discontinued 0 .ROUTE .COMPLEX 84 February 19, 2022 8:37am March 25, 2023 [...] 9:29am Start: 12-11-2020 End: 12-27-2021 Norethindrone-E.Estradiol-Ir on ( 24) 1 mg-20 mcg (24)/75 mg (4) tablet Discontinued 1 {tbl} PO daily December 11, 2020 12:00am December 27, 2021 9:29am Start: 12-11-2020 End: 12-27-2021 take 1 tablet by mouth once daily Norethindrone-E.Estradiol-Iron (June Fe ) 1 mg-20 mcg (24)/75 mg (4) tablet [...] {Bottle} Refills: 1 Ordered: 24-Feb-2017 TAMARA Newman Start: 16-Oct-2016 End: 24-Feb-2017 Status: Inactive Start: 10-08-2012 End: 10-14-2013 take 2 spray(s) nasal route once daily FLUTICASONE PROPIONATE, 50MCG/ACT (Nasal Suspension) ; 2 (two) sprays each nostril daily for 30 days Quantity: 1 {bottle(s)} Refills: 5 Ordered: 14-Oct-2013 Start: 08-Oct-2012 End: 14-Oct-2013 Status: Inactive ibuprofen 800 mg oral tablet (12 sources) Nonsteroidal Anti-inflammatory Drug Start: 06-12-2016 End: [...] Newman Start: 13-Jan-2019 End: 14-Feb-2019 Status: Inactive Comments: Medication taken as needed. Comment on above: Medication taken as needed. metoclopramide 10 mg oral tablet (12 sources) Dopamine-2 Receptor Antagonist Start: 10-26-2017 End: 04-07-2018 take 1 tablet by mouth three times daily as needed for headache Metoclopramide Hcl (Reglan) 10 mg tablet Discontinued 10 mg PO THREE TIMES A DAY as needed for headache 90 October 26, 2017 12:00am April 07, 2018 5:23pm metroNIDAZOLE 7.5 mg/ml topical cream (18 sources) Nitroimidazole Antimicrobial Start: 05-23-2019 End: 11-21-2020 metroNIDAZOLE 0.75 % External Cream ; apply cream cream twice daily for 0 days Quantity: 45 {Gram} Refills: 2 Ordered: 21-Nov-2020 TAMARA Abdul Start: 23-May-2019 End: 21-Nov-2020 Status: Inactive naproxen 500 mg oral tablet (12 sources) Nonsteroidal Anti-inflammatory Drug Start: 05-12-2018 End: 05-24-2018 take 1 tablet by mouth twice daily as needed for pain Naproxen 500 MG tablet Discontinued 500 mg PO TWICE DAILY NEEDED as needed for Pain 60 May 12, 2018 1:00am May 24, 2018 4:14pm nitrofurantoin, macrocrystals 25 mg / nitrofurantoin, monohydrate 75 mg oral capsule (12 sources) Nitrofuran Antibacterial Start: 04-28-2018 End: 05-05-2018 take 1 capsule by mouth twice daily at mealtime Nitrofurantoin Monohyd/M-Cryst (Macrobid) 100 mg capsule Discontinued 100 mg PO TWICE A DAY 14 7 0 April 28, 2018 1:00am May 04, 2018 1:00am May 05, 2018 1:07am must administer with a meal/food Prenat.Vits,Jonathan,Min -Iron-Folic ( Vitamin) tablet (12 sources) Start: 10-07-2017 End: 05-24-2018 Prenat.Vits,Jonathan,Mi q-Rvml-Yqkws ( Vitamin) tablet Discontinued 1 {tbl} PO daily October 07, 2017 12:00am May 24, 2018 4:14pm Start: 10-07-2017 End: 05-24-2018 Prenat.Vits,Jonathan,Tiy-Xaqc-Pju ic ( Vitamin) tablet Discontinued 1 {tbl} PO daily October 07, 2017 12:00am May 24, 2018 4:14pm Start: 10-07-2017 End: 05-24-2018 take 1 tablet by mouth once daily Prenat.Vits,Jonathan,Sjw-Rzhz-Uxlte ( Vitamin) tablet Discontinued 1 TABLET PO [...] 4:11pm depression spironolactone 50 mg oral tablet (12 sources) Aldosterone Antagonist Start: 03-27-2022 End: 06-03-2023 [...] topical cream (18 sources) Corticosteroid Start: 06-22-19 11 End: 09-22-19 12 TRIAMCINOLONE ACETONIDE, 0.1% (External Cream) ; AAA Cream three times daily for up to 2 weeks for 0 days Quantity: 80 {Gram(s)} Refills: 0 Ordered: 22-Sep-2011 Start: 21-Jun-2010 End: 22-Sep-2011 Status: Inactive 24 hr venlafaxine 37.5 mg extended release oral capsule (20 sources) Serotonin and Norepinephrine Reuptake Inhibitor Start: 01-14-20 End: 01-28-20 19 Venlafaxine HCl ER 37.5 [...] without obstruction] 2018 Episodic Cancer of cervix (12 sources) Low grade squamous intraepithelial lesion on cervical Papanicolaou smear; Translations: [Low grade squamous intraepithelial lesion on cytologic smear of cervix (LGSIL)] 10-18-2020 Episodic Comment on above: pap done at [facility]. ASCUS can not rule out HGSIL. [place] on 10/25/20 Contraceptive and procreative management (1 source) Encounter for initial prescription of contraceptive pills; Translations: [General counseling on prescription of oral contraceptives] 06-03-2023 Episodic Diabetes mellitus without complication (15 sources) Abnormal glucose level; Translations: [Other abnormal glucose] 06-21-2018 Episodic Comment on above: nl 3 hour gtt normal 3 hr GTT Diseases of mouth; excluding dental (20 sources) Glossodynia; Translations: [Glossodynia] 11-21-2020 Episodic Early or threatened labor (12 sources) False labor before 37 completed weeks of gestation; Translations: [False labor before 37 completed weeks of gestation, unspecified trimester] 06-21-2018 Episodic Genitourinary congenital anomalies (12 sources) Imperforate hymen; 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 Immunizations and screening for infectious disease (20 sources) Patient encounter status; Translations: [Encounter for screening for infections with a predominantly sexual mode of transmission] Onset: 12-06-2024 03-25-2023 Episodic Comment on above: noéetta 6 wk pp Inflammation; infection of eye [...] trimester] Onset: 07-29-2024 Chronic Other complications of (12 sources) Missed miscarriage; Translations: [Missed ] 2020 Episodic Comment on above: plan d and c Other complications of (12 sources) Disease caused by 2019-nCoV; Translations: [Other viral diseases complicating , unspecified trimester] 10-18-2020 Episodic Comment on above: 81 mg asa in pregnan cy. growth us. Other complications of (20 sources) High risk ; Translations: [Supervision of high risk , unspecified, unspecified trimester] 06-21-2018 Episodic Comment on above: , LITA 02/26/25, PC: Andreina & Stefania *TWINS*, BF Will PRR LITA 05/24/18 Andreina and Stefania boyfriend Aris PRR,, LITA , PC: Andreina & Stefania *TWINS*, BF Will Other complications of (19 sources) Spotting per vagina in ; Translations: [Spotting complicating , unspecified trimester] 07-21-2024 Episodic Other complications of (20 sources) H/O: miscarriage; Translations: [Supervision of with other poor reproductive or obstetric history, unspecified trimester] 07-08-2024 Episodic Comment on above: 2020- D&C @ 10wks; T risomy 21 Other complications of (14 sources) Pruritic urticarial papules and plaques of (PUPPP); Translations: [Pruritic urticarial papules and plaques of ] 11-15-2024 Episodic Comment on above: medrol pk claritan. Seeing derm medrol pk claritan. Confirmed by derm Other complications of (1 source) Supervision of high risk , unspecified, second trimester; Translations: [Supervision of high risk , unspecified, second trimester] Onset: 12-12-2024 Episodic Other female genital disorders (12 sources) Cervical intraepithelial neoplasia grade 2; Translations: [...] [Encounter for screening for diabetes mellitus] Onset: 12-20-2024 Episodic Other skin disorders (18 sources) Folliculitis; [...] [Hypersomnia, unspecified] 05-23-2019 Chronic Residual codes; unclassified (12 sources) Abnormal cytology findings; Translations: [ASCUS favoring dysplasia] 02-19-2022 Episodic Comment on above: bx SEA II: LEEP Residual codes; unclassified (12 sources) History of loop electrosurgical excision procedure; Translations: [Other specified postprocedural states] 02-19-2022 Episodic Comment on above: 12/18/20 SEA 1; rpt p ap yearly until 3 neg. Residual codes; unclassified (17 sources) H/O: ; Translations: [Personal history of [...] patient refusal] 2018 Episodic Residual codes; unclassified (9 sources) Infertile 07-08-2024 Episodic Comment on above: [...] Problem Classification Problem Date Documented Date Episodic/Chronic Genitourinary symptoms and ill-defined conditions (20 sources) Dysuria; Translations: [Dysuria] Onset: 08-10-1906-24-2017 Episodic Mood disorders (18 sources) Mood disorders 09-02-2018 [...] Translations: [9 weeks gestation of ] Onset: 04-11-20 25 Episodic Residual codes; unclassified (1 source) Personal history of other complications of , childbirth and the puerperium; Translations: [Personal history of other complications of , childbirth and the puerperium] Onset: 07-30-19 25 Episodic Unclassified (3 sources) Body mass index [...] change of anti-depressant - Patient has seen [facility] in the past and was seen for depression. Provider started pt. on bupropion 300 mg and medication was helping pt. 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 reviewed by [facility] 09-14-2015 Unclassified (18 sources) Cold Symptoms - [...] Note for Upper respiratory infection: reviewed by [facility] 03-06-2015 Unclassified (18 sources) Eye Symptoms - [...] one else at home sick. reviewed by [facility] 04-14-2014 Unclassified (18 sources) Eye symptoms - [...] Note for Upper respiratory infection: reviewed by [facility] 01-12-2013 Unclassified (18 sources) Allergic rhinitis - [...] Form completion physical: Work physical. reviewed by [facility] 08-17-2012 Unclassified (18 sources) Cold Symptoms - [...] sore areas under right arm. reviewed by B 07-23-2011 Unclassified (18 sources) Sore Throat - [...] factors. Note for Sore Throat: reviewed by [facility] 06-13-2011 Unclassified (18 sources) Lips and mouth [...] Benadryl or anthing for this. reviewed by [facility] 02-24-2011 Unclassified (18 sources) Cold Symptoms - Symptoms include sneezing, nasal congestion, runny nose, ear pain (Right ear), dry cough and headache, but do not include fever. The onset was gradual 3 week(s) ago. The symptoms occur constantly. The patient describes this as moderate in severity and worsening. Current treatment includes allergy medications. Note for Cold Symptoms: reviewed by [facility] 01-07-2011 Unclassified (18 sources) Rash - The [...] for weight loss medication and started on wegoBrie 08-24-2023 Unclassified (9 sources) Obesity follow-up - [...] Test Name Value Interpretation Reference Range Facility [facility] Office Visit Reporton 12-21-2024 Metal [facility] Office Visit Report [facility] [address], [address] [place] [address] OFFICE VISIT Date of Service: 12/21/24 MR#: [id number] Acct: [id number] Name: PATTY ALVAREZ Rep #: [id number] : 1995 Provider: Dr. Mallory Koch DO Age/Sex: 29/F Location: [facility] Status: Signed Intake Vital Signs 10/17/24 15:36 12/06/24 15:34 12/21/24 10:23 12/21/24 10:25 Height 5 ft 3 in 5 ft 3 in 5 ft 3 in 5 ft 3 in Weight: 283 lb 9 oz BMI 50.2 BP 120/70 Intake Visit Reasons: 30 wk ob * Director Of Community Services Required: No Is patient in pain?: No Allergies Penicillins (PCN) Allergy (Verified 12/21/24 10:23) Rash Medications ???Medication ???Instructions ???Recorded ???Confirmed ???Type docosahexaenoic acid 200 mg mg PO 07/08/24 12/21/24 History capsule ( DHA) ondansetron 4 mg disintegrating 4 mg PO Q6H PRN nausea and 5 12/21/24 Rx tablet vomiting #30 tabs methylprednisolone 4 mg tablets in See Rx Instructions PO PER PKG D IR 11/15/24 12/21/24 Rx a dose pack (Medrol (Melissa)) #21 [...] 2 current occupational status: employed 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 current occupational exposures/hazards: No [...] times per week duration: < 15 minutes/day karo/buddhism: None seatbelt use: always do you feel [...] full term 6lb 1oz Female spinal Wo [facility] Manuel 05/10/18 Stefania 38 live - full term 6lbs 5oz Female spin al [facility] Manuel 10/15/20 10 spontaneous Delivery Date: 05/10/18 Last Updated by: Laine Harden Twins; Breech/Breech Delivery Date: 05/10/18 Last Updated by: Laine Harden Twins; Breech/Breech Delivery Date: 10/15/20 Last Updated by: Hannah Mercado RN D C - [facility] HPI 30 wk ob * Details: PATTY ALVAREZ is a 29 year old who presents for routine OB visit. OB Visit LITA Calculator Estimated Delivery Date Method Current WG Current Estimate 02/26/25 LMP (Certain) 30w 3d Expected Delivery Route/Plan Labor Preferences- CB/BF classes: no labor support person: Will labor intervention preferences: [] pain management options preferred: epidural ok cut cord/dad catch: yes : yes PP control planned: discussed discussed possible routes of delivery and associated risks: [] special requests: [] patient counseled regarding risks/benefits of trial of labor versus repeat . ACOG/uptodate education given to patient. 38 % likelihood of success per calculator TOLAC consent form signed: [] Specific Issue/Plans Covid status: [] Flu vaccine: [] Tdap vaccine: [] Rhogam: [] LARC form signed: [] Problem list reviewed and updated with the most current plan of care details and appropriate orders placed. Relevant counseling for the gestational age provided. Contin (more content not included)... Normal [facility] Gestational GTT 3HR 100gon 0 12-13-2024 GEST GTT 100gm High [facility] Comment on above: Order Comment: Y Result Comment: FAST ING 87 Col: 12/13/24 0655 GLUCOSE TOLERANCE TEST FOR Reference Interval GESTATIONAL DIABETES Fasting <105 mg/dL 1 hour <190 mg/dl 2 hour <165 mg/dl 3 hour <145 mg/dl 1 HR GLU 134 Col: 12/13/24 0831 2 HR GLU 169 H Col: 12/13/24 0933 3 HR GLU 97 Col: 12/13/24 1031 Performed By: #### L 509.8002, L3890.6006, L100.0100, L501.0250 #### [facility] [address] [place], [address] Quantitative serum or plasma 3 hour gestational glucose tolerance panelOrdered By: Bessie Mansfield on 12-13-2024 Glucose tolerance 3 hours gestational panel See comment [facility] Comment on above: FASTING 87 Col: 0810/12 0655GLUCOSE TOLERANCE TEST FOR Reference Interval GESTATIONAL DIABETES Fasting <105 mg/dL 1 hour <190 mg/dl 2 hour <165 mg/dl 3 hour <145 mg/dl 1 HR GLU 134 Col: 12/13/24 0831 2 HR GLU 169 H Col: 12/13/24 0933 3 HR GLU 97 Col: 12/13/24 1031 Absolute lymphocyte countOrd ered By: Bessie Mansfield on 12-06-2024 Lymphocytes Auto (Unsp spec) [#/Vol] 1.30 10*3/uL 0.83-4.51 [facility] Absolute neutrophil countOrd ered By: Bessie Mansfield on 12-06-2024 Neutrophils (Bld) [#/Vol] 7.7 10*3/uL 2.0-7.7 [facility] Automated lymphocyte count a s percentage of total leukocytesOrdered By: Bessie Mansfield on 12-06-2024 Lymphocytes/100 WBC Auto (Unsp spec) 13.5 % Low 19-41 [facility] Basophil percentageOrdered B y: Bessie Mansfield on 12-06-2024 Basophils/100 WBC (Bld) 0.2 % 0-1 [facility] CBC W/Diff, Automatedon 11-18 Absolute Lymph 1.30 X10 3/uL Normal 0.83-4.51 [facility] Comment on above: Performed By: #### L 509.8002, L3890.6006, L100.0100, L501.0250 #### [facility] [address] [place], [address] Absolute Neut 7.7 X10 3/uL Normal 2.0-7.7 [facility] Comment on above: Performed By: #### L 509.8002, L3890.6006, L100.0100, L501.0250 #### [facility] [address] [place], [address] Basophils/100 WBC (Bld) 0.2 % Normal 0-1 [facility] Comment on above: Performed By: #### L 509.8002, L3890.6006, L100.0100, L501.0250 #### [facility] [address] [place], [address] Eosinophils/100 WBC (Bld) 1.0 % Normal 0-5 [facility] Comment on above: Performed By: #### L 509.8002, L3890.6006, L100.0100, L501.0250 #### [facility] [address] [place], [address] Erythrocyte distribution width (RBC) [Ratio] 12.3 % Normal 11.6-14.6 [facility] Comment on above: Performed By: #### L 509.8002, L3890.6006, L100.0100, L501.0250 #### [facility] [address] [place], [address] Hematocrit (Bld) [Volume fraction] 36.2 % Low 37-47 [facility] Comment on above: Performed By: #### L 509.8002, L3890.6006, L100.0100, L501.0250 #### [facility] [address] [place], [address] Hemoglobin (Bld) [Mass/Vol] 12.5 g/dL Normal 12.0-15.0 [facility] Comment on above: Performed By: #### L 509.8002, L3890.6006, L100.0100, L501.0250 #### [facility] [address] [place], [address] IG% 1.200 High 0.0-0.9 [facility] Comment on above: Result Comment: IG% - Immature Granulocytes (promyelocytes, myelocytes and metamyelocytes) > 1% indicates that a LEFT SHIFT is Present. Performed By: #### L 509.8002, L3890.6006, L100.0100, L501.0250 #### [facility] [address] [place], [address] Lymphocytes/100 WBC (Bld) 13.5 % Low 19-41 [facility] Comment on above: Performed By: #### L 509.8002, L3890.6006, L100.0100, L501.0250 #### [facility] [address] [place], [address] MCH (RBC) [Entitic mass] 31.8 pg Normal 27.0-32.0 [facility] Comment on above: Performed By: #### L 509.8002, L3890.6006, L100.0100, L501.0250 #### [facility] [address] [place], [address] MCHC (RBC) [Mass/Vol] 34.5 g/dL Normal 32-36 [facility] Comment on above: Performed By: #### L 509.8002, L3890.6006, L100.0100, L501.0250 #### [facility] [address] [place], [address] MCV (RBC) [Entitic vol] 92.1 fL Normal 81-99 [facility] Comment on above: Performed By: #### L 509.8002, L3890.6006, L100.0100, L501.0250 #### [facility] [address] [place], [address] Monocytes/100 WBC (Bld) 3.8 % Normal 0-10 [facility] Comment on above: Performed By: #### L 509.8002, L3890.6006, L100.0100, L501.0250 #### [facility] [address] [place], [address] Neutrophils/100 WBC (Bld) 80.3 % High 47-70 [facility] Comment on above: Performed By: #### L 509.8002, L3890.6006, L100.0100, L501.0250 #### [facility] [address] [place], [address] Nucleated RBC (Bld) [#/Vol] 0 10*3/uL Normal 0-5 [facility] Comment on above: Performed By: #### L 509.8002, L3890.6006, L100.0100, L501.0250 #### [facility] [address] [place], [address] Platelet mean volume (Bld) [Entitic vol] 12.1 fL High 6.2-12.0 [facility] Comment on above: Performed By: #### L 509.8002, L3890.6006, L100.0100, L501.0250 #### [facility] [address] [place], [address] Platelets (Bld) [#/Vol] 205 10*3/uL Normal 150-450 [facility] Comment on above: Performed By: #### L 509.8002, L3890.6006, L100.0100, L501.0250 #### [facility] [address] [place], [address] RBC (Bld) [#/Vol] 3.93 10*6/uL Low 4.2-5.4 [facility] Comment on above: Performed By: #### L 509.8002, L3890.6006, L100.0100, L501.0250 #### [facility] [address] [place], [address] RDW SD 41.9 fl Normal 35.1-43.9 [facility] Comment on above: Performed By: #### L 509.8002, L3890.6006, L100.0100, L501.0250 #### [facility] [address] [place], [address] WBC (Bld) [#/Vol] 9.6 10*3/uL Normal 4.4-11.0 [facility] Comment on above: Performed By: #### L 509.8002, L3890.6006, L100.0100, L501.0250 #### [facility] [address] [place], [address] Eosinophil percentageOrdered By: Bessie Mansfield on 12-06-2024 Eosinophils/100 WBC (Bld) 1.0 % 0-5 [facility] Erythrocyte distribution wid th ratioOrdered By: Bessie Mansfield on 12-06-2024 Erythrocyte distribution width (RBC) [Ratio] 12.3 % 11.6-14.6 [facility] Erythrocyte distribution wid th standard deviationOrdered By: Bessie Mansfield on 12-06-2024 Erythrocyte distribution width (RBC) [Ratio] 41.9 fl 35.1-43.9 [facility] Glucose Challenge Gest 1H 50 juan diego 12-06-2024 GLU GEST 50g 1H 168 mg/dL High 70-140 [facility] Comment on above: Result Comment: AMENDED REPORT 12/06/241709 GLU GEST 50g 1H previously reported as: 168 H mg/dL Performed By: #### L 509.8002, L3890.6006, L100.0100, L501.0250 #### [facility] [address] [facility] [place], [address] Glucose measurement at 2 gabriella rs post-dose gestational glucose tolerance testOrdered By: Bessie Mansfield on 12-06-2024 Glucose [Mass/Vol] 167 mg/dL High 70-140 [facility] Comment on above: Previous reported re sult: 168 mg/dLEdited by: JARED on 12/06/24:1710 AMENDED REPORT 12/06/241709 GLU GEST 50g 1H previously reported as: 168 H mg/dL HIVon 12-06-2024 HIV Non-Reactive Normal Nonreactive [facility] Comment on above: Result Comment: Non- Reactive Reactive Repeatedly reactive samples must be confirmed according to CDC recommended confirmatory algorithms. The subresults for either HIVAG or AHIV can be used as an aid in the selection of the confirmation algorithm for reactive samples. Send out specimens with Reactive results to [facility] for confirmation. Order the HIV antibody detection and differentiation: #[id number] Performed By: #### L 509.8002, L3890.6006, L100.0100, L501.0250 #### [facility] [address] [facility] [place], [place], [address] Hematocrit Auto (Bld) [Volum e fraction]Ordered By: Bessie Mansfield on 12-06-2024 Hematocrit (Bld) [Volume fraction] 36.2 % Low 37-47 [facility] Hemoglobin measurementOrdere d By: Bessie Mansfield on 12-06-2024 Hemoglobin (Bld) [Mass/Vol] 12.5 g/dL 12.0-15.0 [facility] Immature granulocytes/100 WB C Auto (Bld)Ordered By: Bessie Mansfield on 12-06-2024 Immature granulocytes/100 WBC (Bld) 1.200 % High 0.0-0.9 [facility] Comment on above: IG% - Immature Granu locytes (promyelocytes, myelocytes and metamyelocytes) > 1% indicates that a LEFT SHIFT is Present. MCV (mean corpuscular volume ) determinationOrdered By: Bessie Mansfield on 12-06-2024 MCV (RBC) [Entitic vol] 92.1 fL 81-99 [facility] Mean corpuscular hemoglobin (MCH) determinationOrdered By: Bessie Mansfield on 12-06-2024 MCH (RBC) [Entitic mass] 31.8 pg 27.0-32.0 [facility] Mean corpuscular hemoglobin concentration (MCHC) determinationOrdered By: Bessie Mansfield on 12-06-2024 MCHC (RBC) [Mass/Vol] 34.5 g/dL 32-36 [facility] Mean platelet volume determi nationOrdered By: Bessie Mansfield on 12-06-2024 Platelet mean volume (Bld) [Entitic vol] 12.1 fL High 6.2-12.0 [facility] Monocyte percentageOrdered B y: Bessie Mansfield on 12-06-2024 Monocytes/100 WBC (Bld) 3.8 % 0-10 [facility] Neutrophil percentageOrdered By: Bessietay Mansfield on 12-06-2024 Neutrophils/100 WBC (Bld) 80.3 % High 47-70 [facility] No Panel InformationOrdered By: Bessie Mansfield on 12-06-2024 HIV (1&2) Antibody Non-Reactive Nonreactive [facility] Comment on above: Non-ReactiveReactive Repeatedly reactive samples must be confirmed according to CDC recommended confirmatory algorithms. The subresults for either HIVAG or AHIV can be used as an aid in the selection of the confirmation algorithm for reactive samples.Send out specimens with Reactive results to [facility] for confirmation.Order the HIV antibody detection and differentiation: #[id number] Nucleated red blood cell per centageOrdered By: Bessie Mansfield on 12-06-2024 Nucleated RBC/100 WBC (Bld) [Ratio] 0 % 0-5 [facility] Office Visit Reporton 12-06-2024 [facility] Office Visit Report [facility] [address], [address] [place] [address] OFFICE VISIT Date of Service: 12/06/24 MR#: [id number] Acct: [id number] Name: PATTY ALVAREZ Rep #: [id number] : 1995 Provider: GAVIN solis Age/Sex: 29/F Location: [facility] Status: Signed Intake Vital Signs 09/19/24 14:11 11/15/24 13:35 12/06/24 15:34 Height 5 ft 3 in 5 ft 3 in 5 ft 3 in Weight: 273 lb 8 oz 281 lb 2 oz BMI 48.4 49.8 BP 118/78 126/72 H Intake Visit Reasons: 28wk ob/glucose Chief Complaint: 28 Week OB/Glucose Director Of Community Services Required: No Is patient in pain?: No [...] 2 current occupational status: employed 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 current occupational exposures/hazards: No [...] times per week duration: < 15 minutes/day karo/buddhism: None seatbelt use: always do you feel [...] full term 6lb 1oz Female spinal [facility] Manuel 05/10/18 Stefania 38 live - full term 6lbs 5oz [facility] 10/15/20 10 spontaneous Delivery Date: 05/10/18 Last Updated by: Laine Harden Twins; Breech/Breech Delivery Date: 05/10/18 Last Updated by: Laine Harden Twins; Breech/Breech Delivery Date: 10/15/20 Last Updated by: Hannah Mercado RN D C - [facility] HPI 28wk ob/glucose Details: PATTY ALVAREZ is [...] -???-???-???-???-?? ?-???-???-???-??? (more content not included)... Normal [facility] Platelet countOrdered By: Earl Mansfield on 12-06-2024 Platelets (Bld) [#/Vol] 205 10*3/uL 150-450 [facility] RBC Auto (Bld) [#/Vol]Ordere d By: Bessie Mansfield on 12-06-2024 RBC (Bld) [#/Vol] 3.93 10*6/uL Low 4.2-5.4 [facility] Syphilis Antibodieson 2024 Syphilis Abs Non-Reactive Normal Nonreactive [facility] Comment on above: Performed By: #### L 509.8002, L3890.6006, L100.0100, L501.0250 #### [facility] [address] [place], [address] White blood cell (WBC) count Ordered By: Bessie Mansfield on 12-06-2024 WBC (Bld) [#/Vol] 9.6 10*3/uL 4.4-11.0 [facility] - Chemistry and C hemistry - challengeOrdered By: Bessie Mansfield on 11-15-2024 Glucose Ql (U) Negative [facility] - UrinalysisOrder ed By: Bessie Mansfield on 11-15-2024 Protein Ql (U) Negative [facility] Office Visit Reporton 11-15-2024 [facility] Office Visit Report [facility] [address], [address] [place] [address] OFFICE VISIT Date of Service: 11/15/24 MR#: [id number] Acct: [id number] Name: PATTY ALVAREZ Rep #: [id number] : 1995 Provider: GAVIN solis Age/Sex: 29/F Location: [facility] Status: Signed Intake Vital Signs 09/19/24 14:11 10/17/24 15:36 11/15/24 13:35 Height 5 ft 3 in 5 ft 3 in 5 ft 3 in Weight: 273 lb 8 oz BMI 48.4 BP 118/78 Intake Visit Reasons: 25wk ob * Chief Complaint: 25 Week OB Director Of Community Services Required: No Is patient in pain?: No [...] 2 current occupational status: employed 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 current occupational exposures/hazards: No [...] times per week duration: < 15 minutes/day karo/buddhism: None seatbelt use: always do you feel [...] - full term 6lb 1oz Female spinal [facility] Amee Schaffer 05/10/18 Stefania 38 live - full term 6lbs 5oz Female spin al [facility] Amee Schaffer 10/15/20 10 spontaneous Delivery Date: [...] with lm (more content not included)... Normal [facility] ANABEL BY IFA SCREEN [CCL]on Nuclear Ab IF (S) [Titer] Negative Normal Negative [facility] Comment on above: Result Comment: Anti -nuclear antibody test is used as an aid in diagnosis of systemic autoimmune diseases. Where positive and clinically warranted, follow-up using disease-specific testing is recommended. Low positive titers are not uncommon with advanced age, certain chronic infections, and malignancies among others. Test methodology: Indirect fluorescence immunoassay (IFA) using HEp-2 cells. [address] [address] [place] [address] Michel Modi III, M.D. [id number] Performed By: #### 2 89927 #### [place] [id number] CMP with eGFRon 10-24-2024 AGE 28 years Normal [facility] Comment on above: Performed By: #### 2 46368 #### [place] [id number] Albumin [Mass/Vol] 2.8 g/dL Low 3.4 - 5.0 [facility] Comment on above: Performed By: #### 2 [address]3536 #### [address] [address] Albumin/Globulin [Mass ratio] 0.6 {ratio} Low 0.9 - 1.6 [facility] Comment on above: Performed By: #### 2 26973 #### [facility],[address] [place] [address] ALK PHOS 75 U/L Normal 46 - 116 [facility] Comment on above: Performed By: #### 2 45233 #### [facility],[address] [place], [place] [id number] ALT [Catalytic activity/Vol] 23 U/L Normal 16 - 63 [facility] Comment on above: Performed By: #### 2 87470 #### [facility],[address] [place] [address] Anion gap [Moles/Vol] 16 mmol/L Normal 10 - 20 [facility] Comment on above: Performed By: #### 2 98811 #### [facility],[address] [place], [place] [id number] AST [Catalytic activity/Vol] 13 U/L Normal 13 - 39 [facility] Comment on above: Performed By: #### 2 08158 #### [facility],[address] [place], [place] [address] B/C RATIO 13 ratio Normal 0 - 30 [facility] Comment on above: Performed By: #### 2 54017 #### [facility],[address] [place], [place] [address] Bilirubin [Mass/Vol] 0.4 mg/dL Normal 0.2 - 1.0 [facility] Comment on above: Performed By: #### 2 51983 #### [facility],[address] [place] [address] Calcium [Mass/Vol] 9.0 mg/dL Normal 8.5 - 10.1 [facility] Comment on above: Performed By: #### 2 05851 #### [facility],[address] [place] [address] Chloride [Moles/Vol] 104 mmol/L Normal 98 - 107 [facility] Comment on above: Performed By: #### 2 87819 #### [facility],[address] [place] [address] CMP with eGFR Normal [facility] Comment on above: Result Comment: COMP REHENSIVE METABOLIC PANEL Performed By: #### 2 38237 #### [facility],[address] [place] [address] CO2 [Moles/Vol] 21.8 mmol/L Normal 21.0 - 32.0 [facility] Comment on above: Performed By: #### 2 94389 #### [facility],[address] [place] [address] Creatinine [Mass/Vol] 0.53 mg/dL Low 0.55 - 1.02 [facility] Comment on above: Performed By: #### 2 99537 #### [facility],[address] [place] [address] GFR/1.73 sq M.predicted among non-blacks MDRD (S/P/Bld) [Vol rate/Area] mL/min/{1.73_m2} Normal 60 - 999 [facility] Comment on above: Performed By: #### 2 90633 #### [facility],[address] [place] [address] Result Comment: ACCO RDING TO THE NATIONAL KIDNEY DISEASE EDUCATION PROGRAM(NKDE), A NORMAL eGFR IS A VALUE GREATER THAN OR EQUAL TO 60 ML/MIN/1.73 SQ METERS. CHRONIC KIDNEY DISEASE: <60mL/MIN/1.73 SQ METERS KIDNEY FAILURE: <15mL/MIN/1.73 SQ METERS THIS TEST SHOULD ONLY BE USED FOR PATIENTS 18 YEARS OF AGE AND OLDER. Globulin (S) [Mass/Vol] 4.4 g/dL High 1.5 - 3.8 [facility] Comment on above: Performed By: #### 2 99013 #### [facility],[address] [place], [place] [address] Glucose [Mass/Vol] 88 mg/dL Normal 74 - 106 [facility] Comment on above: Performed By: #### 2 12924 #### [facility],[address] [place] [address] Potassium [Moles/Vol] 3.7 mmol/L Normal 3.5 - 5.1 [facility] Comment on above: Performed By: #### 2 26279 #### [facility],[address] [place] [address] Protein [Mass/Vol] 7.2 g/dL Normal 6.4 - 8.2 [facility] Comment on above: Performed By: #### 2 66407 #### [facility],[address] [place] [address] Sodium [Moles/Vol] 138 mmol/L Normal 136 - 145 [facility] Comment on above: Performed By: #### 2 74434 #### [facility],[address] [place] [address] Urea nitrogen [Mass/Vol] 7 mg/dL Normal 7 - 18 [facility] Comment on above: Performed By: #### 2 67427 #### [facility],[address] [place] [address] Laboratory - Chemistry and C hemistry - challengeOrdered By: Bessie Mansfield on 10-17-2024 Glucose Ql (U) Negative [facility] - UrinalysisOrder ed By: Bessie Mansfield on 10-17-2024 Protein Ql (U) Negative [facility] Office Visit Reporton 10-17-2024 [facility] Office Visit Report [facility] [address], [address] [place] [address] OFFICE VISIT Date of Service: 10/17/24 MR#: [id number] Acct: [id number] Name: PATTY ALVAREZ Rep #: [id number] : 1995 Provider: GAVIN solis Age/Sex: 28/F Location: [facility] Status: Signed Intake Vital Signs 07/29/24 14:29 09/19/24 14:11 10/17/24 15:36 Height 5 ft 3 in 5 ft 3 in 5 ft 3 in Weight: 278 lb 4 oz BMI 49.3 BP 120/74 Intake Visit Reasons: 21 wk ob * Chief Complaint: 21 Week OB Director Of Community Services Required: No Is patient in pain?: No [...] 2 current occupational status: employed 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 current occupational exposures/hazards: No [...] times per week duration: < 15 minutes/day karo/buddhism: None seatbelt use: always do you feel [...] full term 6lb 1oz Female spinal [facility] Manuel 05/10/18 Stefania 38 live - full term 6lbs 5oz Female spin [facility] Manuel 10/15/20 10 spontaneous Delivery Date: 05/10/18 Last Updated by: Laine Harden Twins; Breech/Breech Delivery Date: 05/10/18 Last Updated by: Laine Harden Twins; Breech/Breech Delivery Date: 10/15/20 Last Updated by: Hannah Mercado RN D C - [facility] HPI 21 wk ob * Details: PATTY [...] ?-???-???-???-???-? ??-?? (more content not included)... Normal [facility] OB INITIAL >or= 14 WEEKS; 1st GESTATon 10-10-2024 OB INITIAL >or= 14 WEEKS; 1st GESTAT [place] [address] [place] [address] Patient: PATTY ALVAREZ Phone#: : 1995 Age: 28 Gender: F Pt. Type: Out Account: [id number] Location: Ordering: AMEE SCHAFFER Exam Date: 10/10/2024/14:01 Family Phys: LOUISE MOON Charge Code: [id number] Physician: Owen Order #: [id number] Dose#: PROCEDURE: OB INITIAL >14 WEEKS ULTRASOUND, [...] inal circumference ratio slightly above expected range [place] [address] Patient: PATTY ALVAREZ Phone#: : 1995 Age: 28 Gender: F Pt. Type: Out Account: [id number] Location: Ordering: AMEE SCHAFFER Exam Date: 10/10/2024/14:01 Family Phys: LOUISE MOON Charge Code: [id number] Physician: Owen Order #: [id number] Dose#: Dictated by: Danielle Cali MD on 10/10/2024 at 22:18 Approved by: Danielle Cali MD on 10/10/2024 at 22:28 Normal [facility] - Chemistry and C hemistry - challengeOrdered By: Ning Oquendo on 09-19-2024 Glucose Ql (U) Negative [facility] - UrinalysisOrder ed By: Ning Oquendo on 09-19-2024 Protein Ql (U) Negative [facility] Office Visit Reporton 09-19-2024 Metal Spinner Office Visit Report [facility] [address], [address] [place] [address] OFFICE VISIT Date of Service: 09/19/24 MR#: [id number] Acct: [id number] Name: PATTY ALVAREZ Rep #: [id number] : 1995 Provider: ARAVIND Hernandez ams Age/Sex: 28/F Location: [facility] Status: Signed Intake Vital Signs 07/29/24 14:29 08/24/24 14:44 09/19/24 14:11 Height 5 ft 3 in 5 ft 3 in 5 ft 3 in Weight: 273 lb BMI 48.3 BP 122/78 H Intake Visit Reasons: 17 wk ob * Chief Complaint: 17wk OB Director Of Community Services Required: No Is patient in pain?: No [...] 2 current occupational status: employed 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[employer] 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 current occupational exposures/hazards: No pets and animals: [...] times per week duration: < 15 minutes/day karo/buddhism: None seatbelt use: always do you feel [...] full term 6lb 1oz Female spinal [facility] Manuel 05/10/18 Stefania 38 live - full term 6lbs 5oz Female spin al [facility] 10 spontaneous Delivery Date: 05/10/18 Last Updated by: Laine Harden Twins; Breech/Breech Delivery Date: 05/10/18 Last Updated by: Laine Harden Twins; Breech/Breech Delivery Date: 10/15/20 Last Updated by: MICH Cervantes C - [facility] HPI 17 wk ob * Details: PATTY [...] 6 oz (more content not included)... Normal [facility] - Chemistry and C hemistry - challengeOrdered By: Amee Jose Jkareem on 08-24-2024 Glucose Ql (U) Negative [facility] - UrinalysisOrder ed By: Amee Schaffer on 08-24-2024 Protein Ql (U) Negative [facility] Office Visit Reporton 08-24-2024 Metal Spinner Office Visit Report [facility] [address], [address] [place] [address] OFFICE VISIT Date of Service: 08/24/24 MR#: [id number] Acct: [id number] Name: PATTY ALVAREZ Rep #: [id number] : 1995 Provider: Dr. 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 Date Name GA/Weeks Outcome Route Bth Weight Infant Gen [facility] F[facility]/10[facility]18 Andreina 38 live - full term 6lb 1oz Female spinal [facility] 05/10/18 Stefania 38 live - full term 6lbs 5oz Female spin [facility] 10/15/20 10 spontaneous Delivery Date: 05/10/18 Last Updated by: Laine Hardne Twins; Breech/Breech Delivery Date: 05/10/18 Last Updated by: Laine Harden Twins; Breech/Breech Delivery Date: 10/15/20 Last Updated by: Hannah Mercado RN D C - [facility] HPI 13wk OB * Details: PATTY ALVAREZ [...] cr amp (more content not included)... Normal [facility] Urine Cultureon 08-08-2024 URC Below infection level. Mixed Gram Positive Organisms [place] Count 1000-10,000 MIXC Mixed contaminants. Submit a new specimen if indicated. Normal [facility] Comment on above: Performed By: #### M 100.2200 #### [facility] [address] [place], [address] Office Visit Reporton 2024 Office Visit Report [facility] [address] [place] [address] OFFICE VISIT Date of Service: 08/05/24 MR#: [id number] Acct: [id number] Patient: PATTY ALVAREZ Rep #: [id number] : 1995 Provider: ARAVIND Hernandez ams Age/Sex: 28/F Location: [facility] [place] Status: Signed Intake Vital Signs 07/29/24 14:29 08/04/24 14:29 Height 5 ft 3 in 5 ft 3 in Weight: 270 lb 6 oz BMI 47.9 Intake Visit Reasons: rpt clean catch/culture per KW Chief Complaint: Spotting and cramping in early Director Of Community Services Required: No Is patient in pain?: No Allergies Penicillins (PCN) Allergy (Verified 08/05/24 14:32) Rash Medications ???Medication ???Instructions ???Recorded ???Confirmed ???Type docosahexaenoic acid 200 mg mg PO 07/08/24 08/05/24 History capsule ( DHA) 08/08/24 1644 Date Ning Oquendo CNM Cosigner Signature: Date (if applicable) CC: Normal [facility] Urine cultureOrdered By: Lino Oquendo on 08-05-2024 Bacteria identified Cx Nom (U) Positive Abnormal [facility] Chlamydia/GC CUCO aptimaon CHLAMY,NUC ACID Negative Normal Negative [facility] Comment on above: Performed By: #### L 509.8002, L3890.6006, L100.0100, L501.0250 #### [facility] [address] [place], [place], [id number] GC BY NUC ACID Negative Normal Negative [facility] Comment on above: Result Comment: Perf ormed at: =G - [facility] [address] [id number] Plastic Sewer: Tracie Mackenzie MD, Phone: [phone] Performed By: #### L 509.8002, L3890.6006, L100.0100, L501.0250 #### [facility] [address] [place], [place], [id number] Urine Cultureon 07-31-2024 URC Mixed Gram Positive Organisms [place] Count 50,000-80,000 MIXC Mixed contaminants. Submit a new specimen if indicated. Normal [facility] Comment on above: Performed By: #### L 509.8002, L3890.6006, L100.0100, L501.0250 #### [facility] [address] [place], [address] Absolute lymphocyte countOrd ered By: Jenny So on 07-29-2024 Lymphocytes Auto (Unsp spec) [#/Vol] 1.78 10*3/uL 0.83-4.51 [facility] Absolute neutrophil countOrd ered By: Jenny So on 07-29-2024 Neutrophils (Bld) [#/Vol] 6.4 10*3/uL 2.0-7.7 [facility] Automated lymphocyte count a s percentage of total leukocytesOrdered By: Jenny So on 07-29-2024 Lymphocytes/100 WBC Auto (Unsp spec) 20.0 % 19-41 [facility] Basophil percentageOrdered B y: Jenny So on 07-29-2024 Basophils/100 WBC (Bld) 0.2 % 0-1 [facility] C. trachomatis rRNA CUCO+prob e Ql (Unsp spec)Ordered By: Jenny So on 07-29-2024 Chlamydia DNA (CUCO) Negative Negative [facility] CBC W/Diff, Automatedon 07-19 Absolute Lymph 1.78 X10 3/uL Normal 0.83-4.51 [facility] Comment on above: Performed By: #### L 3890.6102, L3890.6301, BTS, L3890.6006, L501.9985, L509.4006, L100.0100, L509.8002 #### [facility] [address] [place], [address] Absolute Neut 6.4 X10 3/uL Normal 2.0-7.7 [facility] Comment on above: Performed By: #### L 3890.6102, L3890.6301, BTS, L3890.6006, L501.9985, L509.4006, L100.0100, L509.8002 #### [facility] [address] [place], [address] Basophils/100 WBC (Bld) 0.2 % Normal 0-1 [facility] Comment on above: Performed By: #### L 3890.6102, L3890.6301, BTS, L3890.6006, L501.9985, L509.4006, L100.0100, L509.8002 #### [facility] [address] [place], [address] Eosinophils/100 WBC (Bld) 0.7 % Normal 0-5 [facility] Comment on above: Performed By: #### L 3890.6102, L3890.6301, BTS, L3890.6006, L501.9985, L509.4006, L100.0100, L509.8002 #### [facility] [address] [place], [address] Erythrocyte distribution width (RBC) [Ratio] 11.9 % Normal 11.6-14.6 [facility] Comment on above: Performed By: #### L 3890.6102, L3890.6301, BTS, L3890.6006, L501.9985, L509.4006, L100.0100, L509.8002 #### [facility] [address] [place], [address] Hematocrit (Bld) [Volume fraction] 39.7 % Normal 37-47 [facility] Comment on above: Performed By: #### L 3890.6102, L3890.6301, BTS, L3890.6006, L501.9985, L509.4006, L100.0100, L509.8002 #### [facility] [address] [place], [address] Hemoglobin (Bld) [Mass/Vol] 13.8 g/dL Normal 12.0-15.0 [facility] Comment on above: Performed By: #### L 3890.6102, L3890.6301, BTS, L3890.6006, L501.9985, L509.4006, L100.0100, L509.8002 #### [facility] [address] [place], [address] IG% 0.700 Normal 0.0-0.9 [facility] Comment on above: Result Comment: IG% - Immature Granulocytes (promyelocytes, myelocytes and metamyelocytes) > 1% indicates that a LEFT SHIFT is Present. Performed By: #### L 3890.6102, L3890.6301, BTS, L3890.6006, L501.9985, L509.4006, L100.0100, L509.8002 #### [facility] [address] [place], [address] Lymphocytes/100 WBC (Bld) 20.0 % Normal 19-41 [facility] Comment on above: Performed By: #### L 3890.6102, L3890.6301, BTS, L3890.6006, L501.9985, L509.4006, L100.0100, L509.8002 #### [facility] [address] [place], [address] MCH (RBC) [Entitic mass] 32.0 pg Normal 27.0-32.0 [facility] Comment on above: Performed By: #### L 3890.6102, L3890.6301, BTS, L3890.6006, L501.9985, L509.4006, L100.0100, L509.8002 #### [facility] [address] [place], [address] MCHC (RBC) [Mass/Vol] 34.8 g/dL Normal 32-36 [facility] Comment on above: Performed By: #### L 3890.6102, L3890.6301, BTS, L3890.6006, L501.9985, L509.4006, L100.0100, L509.8002 #### [facility] [address] [place], [address] MCV (RBC) [Entitic vol] 92.1 fL Normal 81-99 [facility] Comment on above: Performed By: #### L 3890.6102, L3890.6301, BTS, L3890.6006, L501.9985, L509.4006, L100.0100, L509.8002 #### [facility] [address] [place], [address] Monocytes/100 WBC (Bld) 6.7 % Normal 0-10 [facility] Comment on above: Performed By: #### L 3890.6102, L3890.6301, BTS, L3890.6006, L501.9985, L509.4006, L100.0100, L509.8002 #### [facility] [address] [place], [address] Neutrophils/100 WBC (Bld) 71.7 % High 47-70 [facility] Comment on above: Performed By: #### L 3890.6102, L3890.6301, BTS, L3890.6006, L501.9985, L509.4006, L100.0100, L509.8002 #### [facility] [address] [place], [address] Nucleated RBC (Bld) [#/Vol] 0 10*3/uL Normal 0-5 [facility] Comment on above: Performed By: #### L 3890.6102, L3890.6301, BTS, L3890.6006, L501.9985, L509.4006, L100.0100, L509.8002 #### [facility] [address] [place], [address] Platelet mean volume (Bld) [Entitic vol] 12.2 fL High 6.2-12.0 [facility] Comment on above: Performed By: #### L 3890.6102, L3890.6301, BTS, L3890.6006, L501.9985, L509.4006, L100.0100, L509.8002 #### [facility] [address] [place], [address] Platelets (Bld) [#/Vol] 214 10*3/uL Normal 150-450 [facility] Comment on above: Performed By: #### L 3890.6102, L3890.6301, BTS, L3890.6006, L501.9985, L509.4006, L100.0100, L509.8002 #### [facility] [address] [place], [address] RBC (Bld) [#/Vol] 4.31 10*6/uL Normal 4.2-5.4 [facility] Comment on above: Performed By: #### L 3890.6102, L3890.6301, BTS, L3890.6006, L501.9985, L509.4006, L100.0100, L509.8002 #### [facility] [address] [place], [address] RDW SD 40.1 fl Normal 35.1-43.9 [facility] Comment on above: Performed By: #### L 3890.6102, L3890.6301, BTS, L3890.6006, L501.9985, L509.4006, L100.0100, L509.8002 #### [facility] [address] [place], [address] WBC (Bld) [#/Vol] 8.9 10*3/uL Normal 4.4-11.0 [facility] Comment on above: Performed By: #### L 3890.6102, L3890.6301, BTS, L3890.6006, L501.9985, L509.4006, L100.0100, L509.8002 #### [facility] [address] [place], [address] Chlamydia trachomatis rRNA d etection by probe and target amplification methodOrdered By: Jenny So on 07-29-2024 C. trachomatis rRNA CUCO+probe Ql (Unsp spec) Negative Negative [facility] Eosinophil percentageOrdered By: Jenny So on 07-29-2024 Eosinophils/100 WBC (Bld) 0.7 % 0-5 [facility] Erythrocyte distribution wid th (RBC) [Ratio]Ordered By: Jenny So on 07-29-2024 Erythrocyte distribution width (RBC) [Entitic vol] 40.1 fL 35.1-43.9 [facility] Erythrocyte distribution wid th ratioOrdered By: Jenny So on 07-29-2024 Erythrocyte distribution width (RBC) [Ratio] 11.9 % 11.6-14.6 [facility] Erythrocyte distribution wid th standard deviationOrdered By: Jennytay So on 07-29-2024 Erythrocyte distribution width (RBC) [Ratio] 40.1 fl 35.1-43.9 [facility] HBV surface Ag Ql (S)Ordered By: Jenny So on 07-29-2024 Hepatitis B Surface Antigen Non-Reactive Nonreactive [facility] Comment on above: Reactive: Presumptiv e evidence of HBV. Repeatedly reactive samples must be confirmed using a neutralization test (ElecRunas HBsAg Confirmatory Test)Non-Reactive: HBsAg not detected; does not exclude the possibility of exposure to HBV HIVon 07-29-2024 HIV Non-Reactive Normal Nonreactive [facility] Comment on above: Result Comment: Non- Reactive Reactive Repeatedly reactive samples must be confirmed according to CDC recommended confirmatory algorithms. The subresults for either HIVAG or AHIV can be used as an aid in the selection of the confirmation algorithm for reactive samples. Send out specimens with Reactive results to [facility] for confirmation. Order the HIV antibody detection and differentiation: #[id number] Performed By: #### L 509.8002, L3890.6006, L100.0100, L501.0250 #### [facility] [address] [place] [address]. [place], [address] Hematocrit Auto (Bld) [Volum e fraction]Ordered By: Jenny So on 07-29-2024 Hematocrit (Bld) [Volume fraction] 39.7 % 37-47 [facility] Hemoglobin A1con 07-29-2024 HbA1c (Bld) [Mass fraction] 4.9 % Normal <=5.6 [facility] Comment on above: Result Comment: Norm al < 5.7 % Prediabetic 5.7 - 6.4 % Diabetic >or= 6.5 % Please note range changes. Performed By: #### L 3890.6102, L3890.6301, BTS, L3890.6006, L501.9985, L509.4006, L100.0100, L509.8002 #### [facility] [address] [place], [place], [address] Hemoglobin A1c percentageOrd ered By: Jenny So on 07-29-2024 HbA1c (Bld) [Mass fraction] 4.9 % <5.7 [facility] Comment on above: Normal < 5.7 % Predi abetic 5.7 - 6.4 % Diabetic >or= 6.5 % Please note range changes. Hemoglobin measurementOrdere d By: Jenny So on 07-29-2024 Hemoglobin (Bld) [Mass/Vol] 13.8 g/dL 12.0-15.0 [facility] Hepatitis C Antibodyon 07-29 Hepatitis C Ab Non-Reactive Normal Nonreactive [facility] Comment on above: Result Comment: Reac tive: Presumptive evidence of antibodies to HCV. Follow CDC recommendations for supplemental testing. Non-Reactive: Antibodies to HCV were not detected; does not exclude the possibility of exposure to HCV Reactive Results are presumptive evidence of antibodies to HCV. Follow CDC recommendations for supplemental testing. Order confirmation testing: HCV Quant by PCR testing - HCVPCR #[id number] Non Reactive: < 0.8 Equivocal: >/= 0.8 to < 1.0 Reactive: >/= 1.0 The CDC requires that a reactive/equivocal HCV antibody result be sent out for confirmation. HCV Quant by PCR testing. Performed By: #### L 509.8002, L3890.6006, L100.0100, L501.0250 #### [facility] [address] [place], [place], [address] Hepatitis C antibodyOrdered By: Jenny So on 07-29-2024 Hepatitis C Antibody Non-Reactive Nonreactive [facility] Comment on above: Reactive: Presumptiv e evidence of antibodies to HCV. Follow CDC recommendations for supplemental testing.Non-Reactive: Antibodies to HCV were not detected; does not exclude the possibility of exposure to HCVReactive Results are presumptive evidence of antibodies to HCV. Follow CDC recommendations for supplemental testing.Order confirmation testing: HCV Quant by PCR testing - HCVPCR #[id number] Non Reactive: < 0.8 Equivocal: >/= 0.8 to < 1.0 Reactive: >/= 1.0The CDC requires that a reactive/equivocal HCV antibody result be sent out for confirmation. HCV Quant by PCR testing. Immature granulocytes/100 WB C Auto (Bld)Ordered By: Jenny So on 07-29-2024 Immature granulocytes/100 WBC (Bld) 0.700 % 0.0-0.9 [facility] Comment on above: IG% - Immature Granu locytes (promyelocytes, myelocytes and metamyelocytes) > 1% indicates that a LEFT SHIFT is Present. L3890.6102on 07-29-2024 HEP B Surf Ag Non-Reactive Normal Nonreactive [facility] Comment on above: Result Comment: Reac tive: Presumptive evidence of HBV. Repeatedly reactive samples must be confirmed using a neutralization test (Elecsys HBsAg Confirmatory Test) Non-Reactive: HBsAg not detected; does not exclude the possibility of exposure to HBV Performed By: #### L 509.8002, L3890.6006, L100.0100, L501.0250 #### [facility] [address] [facility] [place], [address] L509.4006on 07-29-2024 Rubella IgG REAC Normal [facility] Comment on above: Result Comment: Anti body Result: Interpretation Non-Reactive: Non-Immune Reactive: Immune The following results were obtained with the Elecsys Rubella IgG assay. Results from assays of other manufacturers cannot be used interchangeably. Performed By: #### L 3890.6102, L3890.6301, BTS, L3890.6006, L501.9985, L509.4006, L100.0100, L509.8002 #### [facility] [address] [facility] [place], [place], [id number] Laboratory - Microbiology an d Antimicrobial susceptibilityOrdered By: Jenny So on 07-29-2024 HBV surface Ag Ql (S) Non-Reactive Nonreactive [facility] Comment on above: Reactive: Presumptiv e evidence of HBV. Repeatedly reactive samples must be confirmed using a neutralization test (Elecsys HBsAg Confirmatory Test)Non-Reactive: HBsAg not detected; does not exclude the possibility of exposure to HBV Lymphocytes Auto (Unsp spec) [#/Vol]Ordered By: Jenny So on 07-29-2024 Lymphocytes (Bld) [#/Vol] 1.78 10*3/uL 0.83-4.5 1 [facility] Lymphocytes/100 WBC Auto (Un sp spec)Ordered By: Jenny So on 07-29-2024 Lymphocytes/100 WBC (Bld) 20.0 % 19-41 [facility] MCV (mean corpuscular volume ) determinationOrdered By: Jenny So on 07-29-2024 MCV (RBC) [Entitic vol] 92.1 fL 81-99 [facility] Mean corpuscular hemoglobin (MCH) determinationOrdered By: Jenny So on 07-29-2024 MCH (RBC) [Entitic mass] 32.0 pg 27.0-32.0 [facility] Mean corpuscular hemoglobin concentration (MCHC) determinationOrdered By: Jenny So on 07-29-2024 MCHC (RBC) [Mass/Vol] 34.8 g/dL 32-36 [facility] Mean platelet volume determi nationOrdered By: Jenny So on 07-29-2024 Platelet mean volume (Bld) [Entitic vol] 12.2 fL High 6.2-12.0 [facility] Monocyte percentageOrdered B y: Jenny So on 07-29-2024 Monocytes/100 WBC (Bld) 6.7 % 0-10 [facility] Neisseria gonorrhoeae nuclei c acid detection by amplified probe techniqueOrdered By: Jenny So on 07-29-2024 N. gonorrhoeae DNA CUCO+probe Ql (Unsp spec) Negative Negative [facility] Comment on above: Performed at: =[facility] Virginie [address] [id number] Director: Tracie Mackenzie MD, Phone: [phone] Neutrophil percentageOrdered By: Jenny So on 07-29-2024 Neutrophils/100 WBC (Bld) 71.7 % High 47-70 [facility] No Panel InformationOrdered By: Jenny So on 07-29-2024 HIV (1&2) Antibody Non-Reactive Nonreactive [facility] Comment on above: Non-ReactiveReactive Repeatedly reactive samples must be confirmed according to CDC recommended confirmatory algorithms. The subresults for either HIVAG or AHIV can be used as an aid in the selection of the confirmation algorithm for reactive samples.Send out specimens with Reactive results to [facility] for confirmation.Order the HIV antibody detection and differentiation: #[id number] Nucleated red blood cell per centageOrdered By: Jenny So on 07-29-2024 Nucleated RBC/100 WBC (Bld) [Ratio] 0 % 0-5 [facility] Office Visit Reporton 07-29-2024 Metal Spinner Office Visit Report [facility] [address], [address] [place] [address] OFFICE VISIT Date of Service: 07/29/24 MR#: [id number] Acct: [id number] Name: PATTY ALVAREZ Rep #: [id number] : 1995 Provider: ARAVIND gan Age/Sex: 28/F Location: [facility] Status: Signed Intake Vital Signs 06/08/24 08:58 07/01/24 13:27 07/21/24 09:52 07/29/24 14:25 07/29/24 14:29 Height 5 ft 3 in 5 ft 3 in 5 ft 3 in 5 ft 3 in 5 ft 3 in Weight: 269 lb 4 oz BMI 47.7 BP 125/81 H Intake Visit Reasons: New OB, LMP 2/2, LITA 02/26 Director Of Community Services Required: No Is patient in pain?: No [...] 2 current occupational status: employed 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 current occupational exposures/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: No [...] times per week duration: < 15 minutes/day karo/buddhism: None seatbelt use: always do you feel [...] full term 6lb 1oz Female spinal Wo [facility] Amee Schaffer 05/10/18 Stefania 38 live - full term 6lbs 5oz Female spin al [facility] Amee Schaffer 10/15/20 10 spontaneous Delivery Date: 05/10/18 Last Updated by: Laine Harden Twins; Breech/Breech Delivery Date: 05/10/18 Last Updated by: Laine Harden Twins; Breech/Breech Delivery Date: 10/15/20 Last Updated by: [facility] HPI New OB, LMP /, LITA 02/26 Details: PATTY ALVAREZ is a [...] LMP: defini (more content not included)... Normal [facility] Platelet countOrdered By: Neena So on 07-29-2024 Platelets (Bld) [#/Vol] 214 10*3/uL 150-450 [facility] RBC Auto (Bld) [#/Vol]Ordere d By: Jenny So on 07-29-2024 RBC (Bld) [#/Vol] 4.31 10*6/uL 4.2-5.4 [facility] Rubella immune status determ ination by IgG antibody assayOrdered By: Jenny So on 07-29-2024 Rubella IgG Antibody REAC Nonreactive [facility] Comment on above: Antibody Result: Int erpretationNon-Reactive: Non-ImmuneReactive: ImmuneThe following results were obtained with the Elecsys Rubella IgG assay. Results from assays of other manufacturers cannot be used interchangeably. Syphilis Antibodieson 2024 Syphilis Abs Non-Reactive Normal Nonreactive [facility] Comment on above: Performed By: #### L 3890.6102, L3890.6301, BTS, L3890.6006, L501.9985, L509.4006, L100.0100, L509.8002 #### [facility] [address] [place], [address] T. pallidum abOrdered By: Neena So on 07-29-2024 Syphilis Total Antibody Non-Reactive Nonreactiv e [facility] Type AND Screenon Ab SCREEN GEL Negative Normal [facility] Comment on above: Order Comment: PN Performed By: #### L 3890.6102, L3890.6301, BTS, L3890.6006, L501.9985, L509.4006, L100.0100, L509.8002 #### [facility] [place], [address] Urine cultureOrdered By: Carla So on 07-29-2024 Bacteria identified Cx Nom (U) Positive Abnormal [facility] White blood cell (WBC) count Ordered By: Jenny So on 07-29-2024 WBC (Bld) [#/Vol] 8.9 10*3/uL 4.4-11.0 [facility] Metal Spinner Office Visit Reporton 07-21-2024 Metal Spinner Office Visit Report [facility] [address], [address] [place] [address] OFFICE VISIT Date of Service: 07/21/24 MR#: [id number] Acct: [id number] Name: PATTY ALVAREZ Rep #: [id number] : 1995 Provider: ARAVIND Hernandez ams Age/Sex: 28/F Location: [facility] Status: Signed Intake Vital Signs 07/01/24 13:27 07/21/24 09:52 Height 5 ft 3 in 5 ft 3 in Weight: 270 lb 4 oz BMI 47.8 BP 122/79 H Intake Visit Reasons: spotting in early Chief Complaint: Spotting and cramping in early Director Of Community Services Required: No Is patient in pain?: Yes (abdominal cramping) Allergies Penicillins (PCN) Allergy (Verified 07/21/24 09:55) Rash Medications ???Medication ???Instructions ???Recorded ???Confirmed ???Type docosahexaenoic acid 200 mg mg PO 07/08/24 07/21/24 History capsule ( DHA) Post menopausal: No PFSH Medical History History of twin in [...] 2 current occupational status: employed 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 current occupational exposures/hazards: No [...] times per week duration: < 15 minutes/day karo/buddhism: None seatbelt use: always do you feel [...] term 6lb 1oz Female spinal Wo femi [facility] Amee Schaffer 05/10/18 Stefania 38 live - full term 6lbs 5oz Female spin al [facility] Amee Schaffer 10/15/20 10 spontaneous Delivery Date: 05/10/18 Last Updated by: Laine Harden Twins; Breech/Breech Delivery Date: 05/10/18 Last Updated by: Laine Harden Twins; Breech/Breech Delivery Date: 10/15/20 Last Updated by: Hannah Mercado RN D [facility] ROS Const Constitutional: Reports system reviewed and [...] to inspec (more content not included)... 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) Director Of Community Services Required: No Is patient in pain?: No [...] Family History (Updated 06/08/24 @ 09:05 by GAVIN Song) Grandfather Cancer lung throat- smoker Father Diabetes Sister Cancer Social History adopted: No household members: spouse, family, children and other details: her mother lives with them number of children: 2 current occupational status: employed current occupation: [employer] Smoking Status: Never smoker alcohol intake: never substance use type: does not use caffeine: No what type of physical activity do you participate in: walking frequency: 1-2 times per week seatbelt use: always do you feel safe at home: Yes additional social history: Boyfriend 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 Date Name GA/Weeks Outcome Route Bth Weight Infant Gen Labor Lgth Anesthesia Del Locatn Provider FOB 05/10/18 Andreina 38 live - full term 6lb 1oz [facility] Stefania 38 live - full term 6lbs 5oz Female spin al [facility] Manuel Delivery Date: 05/10/18 Last Updated by: Laine Harden Twins; Breech/Breech Delivery Date: 05/10/18 Last Updated by: Laine Harden Twins; Breech/Breech HPI Encounter for routine gynecological examination Details: PATTY ALVAREZ is a 28 year old who presents for annual exam. She reports no issues or concerns today. Last PAP: 2022; normal; History of abnormal PAP: ASCUS 2021; 2 normal paps since. Last mammogram: none--sister [...] the breast (more content not included)... Normal [facility] PREG SERUM QUANTon 4 HCG QUANTITATIVE <1 Normal 0 - 6 [facility] Comment on above: Result Comment: Refe yi Range: Male: <5 Female: Non: <5 1 [...] 3RD TRIMESTER 1000-50,000 Performed By: #### 2 [id number] #### [facility],[address] [address] Chlamydia trachomatis rRNA d etection by probe and target amplification methodOrdered By: Bessie Mansfield on 06-03-2023 C. trachomatis rRNA CUCO+probe Ql (Unsp spec) Negative Negative [facility] Gram stain for investigation of transfusion reactionOrdered By: Bessie Mansfield on 06-03-2023 Microscopic observation Gram stain Nom (Unsp spec) [facility] Laboratory - Microbiology an d Antimicrobial susceptibilityOrdered By: Bessie Mansfield on 06-03-2023 N. gonorrhoeae DNA CUCO+probe Ql (Unsp spec) Negative Negative [facility] Comment on above: Performed at: =[facility] Virginie martinez [address] [id number] Director: Tracie Mackenzie MD, Phone: [phone] No Panel InformationOrdered By: Bessie Mansfield on 06-03-2023 Genital Culture Izzy spp [facility] No Panel Informationon 06-03 POC Bacterial Vaginitis (Rapid) Negative [facility] POC Trichomonas (Rapid) Negative [facility] Basophil percentageOrdered B y: Jenny So on 04-15-2023 Testosterone [Mass/Vol] 35 ng/dL 13-71 [facility] Comment on above: Verified by repeat analysis Free testosterone percentage Ordered By: Jenny So on 04-15-2023 Testosterone Free/Testosterone.total [Mass fraction] 2.03 % 0.50-2.80 [facility] Laboratory - Chemistry and C hemistry - challengeOrdered By: Jenny So on 04-15-2023 Free T4 [Mass/Vol] 1.21 ng/dL 0.76-1.46 [facility] No Panel InformationOrdered By: Jenny So on 04-15-2023 Miscellaneous Test See comment [facility] Comment on above: Sent directly to [facility] per ordering physician. Dehydroepiandrosterone Sulfate 292.0 ug/dL 84.8-378.0 [facility] Comment on above: Performed at: - [address] [place], [place] [id number] Director: Herminio Nash PhD, Phone: [phone] at: [facility] [address] [id number] Director: Chris Hernandez MD, Phone: [phone] Free Triiodothyronine (T3) pg/dL 3.2 pg/mL 2.18-3.98 [facility] Thyroid Stimulating Hormone (TSH) 1.14 uIU/mL 0.358-3.74 [facility] Serum or plasma 17-hydroxypr ogesterone measurement (mass/volume)Ordered By: Jenny So on 04-15-2023 17-Hydroxyprogesterone [Mass/Vol] 40 ng/dL . [facility] Comment on above: Adult Female Follicu lar 15 - 70 Luteal 35 - 290 Serum or plasma calcitriol m easurement (mass/volume)Ordered By: Jenny So on 04-15-2023 1,25-dihydroxyvitamin D3 [Mass/Vol] 46.0 pg/mL 24.8-81.5 [facility] Comment on above: Performed at: [employer] [address] [id number] Director: Chris Hernandez MD, Phone: [phone] Serum or plasma testosterone free measurement (mass/volume)Ordered By: Jenny So on 04-15-2023 Testosterone Free [Mass/Vol] 0.71 ng/dL 0.10-0.85 [facility] Whole blood hemoglobin A1c/t otal hemoglobin ratio (mass fraction)Ordered By: Jenny So on 04-15-2023 HbA1c (Bld) [Mass fraction] 4.7 % 3.8-5.6 [facility] Comment on above: Normal < 5.7 % Predi abetic 5.7 - 6.4 % Diabetic >or= 6.5 % Please note range changes. Cervical or vagninal specime n microscopic examination by cytology stain (reported asOrdered By: Jenny So on 03-25-2023 Cytology report Cyto stain Doc (Cvx/Vag) Comment . [facility] Comment on above: The Pap smear is [...] rRNA CUCO+probe Ql (Unsp spec) Negative Negative [facility] Laboratory - CytologyOrdered By: Jenny So on 03-25-2023 Cylinder Machine Operator Pulp Drier Cyto stain Nom (Cvx/Vag) [ID] Comment . [facility] Comment on above: Porsha Valentine, Conservation Science Teacher (ASCP) Laboratory - Microbiology an d Antimicrobial susceptibilityOrdered By: Jenny So on 03-25-2023 N. gonorrhoeae DNA CUCO+probe Ql (Unsp spec) Negative Negative [facility] Comment on above: Performed at: =G - [facility] [address] [id number] Director: Tracie Mackenzie MD, Phone: [phone] Laboratory - Miscellaneous t estsOrdered By: Jenny So on 03-25-2023 Service comment (Unsp spec) [Interp] Comment . [facility] Comment on above: This liquid based Th inPrep(R) pap test was screened withthe use of an image guided system. Service comment (Unsp spec) [Interp] . . [facility] No Panel InformationOrdered By: Jenny So on 03-25-2023 Human Papillomavirus Screen Comment . [facility] Comment on above: The HPV DNA reflex c riteria were not met with this specimenresult therefore, no HPV testing was performed.Performed at: WB - [facility] [address] [id number] Director: Tracie Mackenzie MD, Phone: [phone] Pathology report final diagnosis Narrative Comment . [facility] Comment on above: NEGATIVE FOR INTRAEP ITHELIAL LESION OR MALIGNANCY. Varicella Zoster IgGon 03-25 V. zoster IgG, Qual Positive Abnormal Negative [facility] Comment on above: Performed By: #### V ZVG2 #### [facility] Routine Lab [address] [place], [place] [id number] Varicella Zoster IgG 269.7 Index Value Normal [facility] Comment on above: Performed By: #### V ZVG2 #### [facility] Routine Lab [address] [place], [place] [address] Laboratory - Chemistry and C hemistry - challengeon 11-21-2020 Bilirubin Ql (U) Negative Normal [employer]; [employer]. Ketones Ql (U) Negative Normal [employer]. pH (U) 5.5 [pH] Normal [employer]; [employer]. Specific gravity (U) [Rel density] >=1.030 Normal [employer]; [employer]. Urobilinogen Qn (U) 0.2 e.u./dL Normal [employer]; [employer]. Laboratory - Hematology and Cell countson 11-21-2020 Hemoglobin Ql (U) small Abnormal [employer]. Laboratory - Specimen inform ationon 11-21-2020 Appearance (U) clear Normal [employer]; [employer]. Color (U) dark Yellow Normal [employer].; [employer]. Laboratory - Urinalysison Glucose Test strip (U) [Mass/Vol] Negative Normal [employer]. Leukocyte esterase Test strip Ql (U) trace Normal [employer].; [employer]. Nitrite Ql (U) Negative Normal [employer].; [employer]. Protein Ql (U) Negative Normal [employer].; [employer]. Laboratory - Chemistry and C hemistry - challengeon 2018 Albumin [Mass/Vol] 4.2 g/dL Normal 3.6 - 5.1 g/dL [employer]. Albumin/Globulin [Mass ratio] 1.5 {ratio} Normal 1.0 - 2.5 [facility].; [facility]. ALP [Catalytic activity/Vol] 112 U/L Normal 33 - 115 U/L [facility].; [facility]. ALT [Catalytic activity/Vol] 28 U/L Normal 6 - 29 U/L [facility].; [facility] AST [Catalytic activity/Vol] 17 U/L Normal 10 - 30 U/L [facility]; [facility] Bilirubin [Mass/Vol] 0.3 mg/dL Normal 0.2 - 1 .2 mg/dL [facility]; [facility] Calcium [Mass/Vol] 9.3 mg/dL Normal 8.6 - 10. 2 mg/dL [facility]; [facility] Chloride [Moles/Vol] 104 mmol/L Normal 98 - 11 0 mmol/L [facility]; [facility], [facility]. CO2 [Moles/Vol] 25 mmol/L Normal 20 - 32 mmol/L [facility]; [facility] Creatinine [Mass/Vol] 0.59 mg/dL Normal 0.50 - 1.10 mg/dL [facility]; [facility], [facility]. Free T3 [Mass/Vol] 3.8 pg/mL Normal 2.3 - 4.2 pg/mL [facility].; [facility] Free T4 [Mass/Vol] 0.9 ng/dL Normal 0.8 - 1.8 ng/dL [facility].; [facility], [facility]. GFR/1.73 sq M.predicted among blacks MDRD (S/P/Bld) [Vol rate/Area] 152 {ML/MIN/1.73M2} Normal [facility]; [facility] GFR/1.73 sq M.predicted MDRD (S/P/Bld) [Vol rate/Area] 131 {ML/MIN/1.73M2} Normal [facility], [facility].; [facility] Globulin (S) [Mass/Vol] 2.9 g/dL Normal 1.9 - 3.7 g/ dL [facility], [facility].; [facility] Glucose [Mass/Vol] 102 mg/dL Abnormal 65 - 99 mg/dL [facility].; [facility] Potassium [Moles/Vol] 3.7 mmol/L Normal 3.5 - 5.3 mmol/L [facility], [facility].; [facility] Protein [Mass/Vol] 7.1 g/dL Normal 6.1 - 8.1 g/dL [facility].; [facility], [facility] Sodium [Moles/Vol] 138 mmol/L Normal 135 - 146 mmol/L [facility]; [facility] TSH Qn 1.38 m[IU]/L Normal 0.40 - 4.50 {mIU/L} [facility]; [facility] Urea nitrogen [Mass/Vol] 15 mg/dL Normal 7 - 25 mg/d L [facility]; [facility] Urea nitrogen/Creatinine [Mass ratio] 25.4 mg/mg Abnormal 6 - 22 [facility]; [facility] Laboratory - Hematology and Cell countson 2018 Basophils (Bld) [#/Vol] 30 {Cells}/uL Normal 0 - 200 {Cells}/uL [facility].; [facility] Basophils/100 WBC (Bld) 0.3 % Normal 0 - 1 % H [facility].; [facility], [facility] Eosinophils (Bld) [#/Vol] 210 {Cells}/uL Normal 15 - 500 {Cells}/uL [facility].; [facility], [facility]. Eosinophils/100 WBC (Bld) 2.1 % Normal 0 - 4 % [facility].; [facility] Erythrocyte distribution width (RBC) [Ratio] 14.7 % Normal 11.0 - 15.0 % [facility], [facility].; [facility] HbA1c (Bld) [Mass fraction] 5.3 % Normal 0 - 5.6 % [facility].; [facility], [employer]. Hematocrit (Bld) [Volume fraction] 41.1 % Normal 35.0 - 45.0 % [facility] [employer], [facility]. Hemoglobin (Bld) [Mass/Vol] 13.6 g/dL Normal 11.7 - 15.5 g/dL [facility], [facility].; [employer], [employer]. Lymphocytes (Bld) [#/Vol] 2600 {Cells}/uL Normal 850 - 3900 {Cells}/uL [place] [facility].; [employer] Lymphocytes/100 WBC (Bld) 26.5 % Normal 12 - 47 % [facility].; [employer], [employer]. MCH (RBC) [Entitic mass] 28.7 pg Normal 27.0 - 33.0 PG [facility].; [employer], [employer]. MCHC (RBC) [Mass/Vol] 33.1 g/dL Normal 32.0 - 36.0 g/dL [place] [facility].; [employer], [employer]. MCV (RBC) [Entitic vol] 86.7 fL Normal 80.0 - 100.0 fL [facility].; [employer], [employer]. Monocytes (Bld) [#/Vol] 770 {Cells}/uL Normal 20 0 - 950 {Cells}/uL [facility].; [employer] Monocytes/100 WBC (Bld) 7.8 % Normal 4 - 12 % [facility].; [employer], [facility]. Neutrophils (Bld) [#/Vol] 6210 {Cells}/uL Normal 1500 - 7800 {Cells}/uL [facility] [employer].; [employer], [employer]. Neutrophils/100 WBC (Bld) 63.3 % Normal 40 - 75 % [facility].; [employer], [employer]. Platelet mean volume (Bld) [Entitic vol] 11.9 fL Normal 7.5 - 12.5 fL [employer], [employer].; [employer] Platelets (Bld) [#/Vol] 274 10*3/uL Normal 140 - 400 10*3/uL [facility] [employer].; [employer], [employer]. RBC (Bld) [#/Vol] 4.74 10*6/uL Normal 3.80 - 5.1 0 10*6/uL [employer].; [employer]. WBC (Bld) [#/Vol] 9.8 10*3/uL Normal 3.8 - 10.8 10*3/uL [employer] [employer]. Final Surgical Pathology Rep luis 10-20-2018 Final Surgical Pathology Report . Pathology Reports Accession: Collected Date/Time: Received Date/Time: Pathologist: [id number] 10/15/2018 08:12 EDT 10/18/2018 08:12 EDT MD JAYLENE ABREU Final Surgical Pathology Report DIAGNOSIS: GALLBLADDER, CHOLECYSTECTOMY - - CHOLELITHIASIS. - CHRONIC CHOLECYSTITIS. COMMENT: [facility] - A# [id number] CLINICAL INFORMATION: BILIARY COLIC SPECIMEN: A GALLBLADDER [...] thickness. RS -1 Dictated by Germaine GILES ([facility]) MICROSCOPIC DESCRIPTION: Slides reviewed. Electronically Signed by Pathology Report verified by [facility] Electronically signed by JAYLENE ABREU MD Sign out Date: 10/20/2018 08:43 Performing Lab: [address] ([place]) Comment on above: Performed By: #### S PFR #### [place] [id number] Progress Noteon 04-14-2018 Manager Test Authentication Interface Message Text Patty Alvarez is here for consultation at the request of Louise Moon PA-C for: Fluid In Kidney (Medical Manager/Fetus A dialated kidney) History of Presenting Problem: Due 2/4 at [place]. Baby A with dilated kidney and ureter. 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 Consent to share information with [facility] team, OB and librarian head signed. Pt plans to deliver at [place] with Dr. Schaffer. 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 Female fetus- names are Andreina and Stefania [...] was spent counseling and coordinating care. Normal [facility] [place] Manager Test Authentication Interface Message Text Patient was seen by [facility] due to unilateral UTDA2-3 (pyelectasis and hydroureter). The total patient time of the visit was 15 minutes, of which greater than 50% of the time was spent counseling and coordinating care. Normal [facility] [place] Progress Noteon 01-11-2018 Manager Test Authentication Interface Message Text [facility]NAL- MEDICINE CONSULT Referring/Requestin g Provider: Amee Schaffer MD PCP: Amanda Primary [...] MEDS: Current Outpatient Prescriptions Medication Sig Vit w/Pl-Hldurcowb-YO (PNV PO) Take 1 Tab by mouth [...] and coordinating care. Sharan Jeffrey DO Normal [facility] [place] Laboratory - Chemistry and C hemistry - challengeon 06-24-2017 Bilirubin Ql (U) small Abnormal [facility].; [employer]. Ketones Ql (U) Negative Normal [facility].; [employer], [employer]. pH (U) 5.5 [pH] Normal [facility].; [employer], [employer]. Specific gravity (U) [Rel density] 1.030 Abnormal [facility].; [employer], [employer]. Urobilinogen Qn (U) 8 mg/dL Abnormal [facility].; [employer], [employer]. Laboratory - Hematology and Cell countson 06-24-2017 Hemoglobin Ql (U) Negative Normal [facility].; [employer], [employer]. Laboratory - Microbiology an d Antimicrobial susceptibilityon 06-24-2017 Bacteria identified Cx Nom (U) Normal [employer].; [employer], [employer]. Laboratory - Specimen inform ationon 06-24-2017 Appearance (U) cloudy Abnormal [facility].; [employer], [employer]. Color (U) yellow Normal [employer].; [employer], [employer]. Specimen source Nom (Unsp spec) URINE-CLEAN CATCH Normal [facility]; [facility] Laboratory - Urinalysison Glucose Test strip (U) [Mass/Vol] Negative Normal [facility]; [facility] Leukocyte esterase Test strip Ql (U) Negative Normal [facility]; [facility] Nitrite Ql (U) Negative Normal [facility]; [facility] Protein Ql (U) Negative Normal [facility]; [facility] Laboratory - Chemistry and C hemistry - challengeon 02-24-2017 Free T3 [Mass/Vol] 3.7 pg/mL Normal 3.0 - 4.7 pg/mL [facility]; [facility] Free T4 [Mass/Vol] 1.2 ng/dL Normal 0.8 - 1.4 ng/dL [facility]; [facility] TSH Qn 0.94 m[IU]/L Normal 0.40 - 4.50 {mIU/L} [facility]; [facility] Laboratory - Serology - non- microon 02-24-2017 TPO Ab Qn 1 [IU]/mL Normal [facility]; [facility] Laboratory - Microbiology an d Antimicrobial susceptibilityon 10-16-2016 S. pyogenes Ag EIA Ql (Throat) Negative Normal [facility]; [facility] No Panel Informationon 10-16 MONOSPOT TEST (IN HOUSE) Negative Normal [facility]; [facility] Laboratory - Chemistry and C hemistry - challengeon 07-14-2016 Beta HCG ( test) Ql (U) Negative Normal [facility]; [facility] Laboratory - Microbiology an d Antimicrobial susceptibilityon 07-14-2016 C. trachomatis rRNA CUCO+probe Ql (Unsp spec) Not detected Normal [facility]; [facility] N. gonorrhoeae rRNA CUCO+probe Ql (Unsp spec) Not detected Normal [facility]; [facility] Laboratory - Chemistry and C hemistry - challengeon 04-09-2016 HCG.beta subunit Qn m[IU]/mL Normal [facility]; [employer] Laboratory - Chemistry and C hemistry - challengeon 04-02-2016 Beta HCG ( test) Ql (U) Negative Normal [facility].; [employer] Laboratory - Microbiology an d Antimicrobial susceptibilityon 04-02-2016 C. trachomatis rRNA CUCO+probe Ql (Unsp spec) Detected Abnormal [facility]; [employer] N. gonorrhoeae rRNA CUCO+probe Ql (Unsp spec) Not detected Normal [place] [facility]; [employer]. No Panel Informationon 12-02 SKIN TEST INTRADERMAL TB Negative Normal [place] [facility]; [employer] No Panel Informationon 11-25 SKIN TEST INTRADERMAL TB Negative Normal [facility] [employer] Laboratory - Chemistry and C hemistry - challengeon 12-25-2011 Bilirubin Ql (U) Negative Normal [facility]; [employer] Ketones Ql (U) Negative Normal [facility] [employer]. Lipase [Catalytic activity/Vol] 14 U/L Normal 7 - 60 U/L [facility]; [employer]. pH (U) 5.0 [pH] Normal 4.6 - 8.0 [facility] [employer] Specific gravity (U) [Rel density] >=1.030 Normal 1.001 - 1.025 [facility]; [employer]. Laboratory - Hematology and Cell countson 12-25-2011 Basophils (Bld) [#/Vol] 50 {Cells}/uL Normal 0 - 200 {Cells}/uL [facility] [employer] [employer] Basophils/100 WBC (Bld) 0 % Normal 0 - 2 % H [facility].; [employer] Eosinophils (Bld) [#/Vol] 550 {Cells}/uL Abnormal 15 - 500 {Cells}/uL [employer].; [employer] [facility]. Eosinophils/100 WBC (Bld) 5 % Normal 0 - 6 % [facility].; [place] [facility]. Erythrocyte distribution width (RBC) [Ratio] 12.8 % Normal 11.0 - 15.0 % [facility].; [place] [employer], [facility]. Hematocrit (Bld) [Volume fraction] 42.3 % Normal 34.0 - 46.0 % [facility].; [place] [facility], [facility]. Hemoglobin (Bld) [Mass/Vol] 14.3 g/dL Normal 11.5 - 15.3 g/dL [facility].; [place] [employer], [facility]. Hemoglobin Ql (U) Negative Normal [facility].; [place] [facility], [facility]. Lymphocytes (Bld) [#/Vol] 2780 {Cells}/uL Normal 1200 - 5200 {Cells}/uL [facility].; [place] [employer], [facility]. Lymphocytes/100 WBC (Bld) 26 % Normal 20 - 60 % [facility].; [facility] [employer], [facility]. MCH (RBC) [Entitic mass] 32.0 pg Normal 25.0 - 35.0 PG [place] [facility].; [employer], [facility]. MCHC (RBC) [Mass/Vol] 33.7 g/dL Normal 31.0 - 36.0 g/dL [facility].; [employer], [facility]. MCV (RBC) [Entitic vol] 94.8 fL Normal 78.0 - 98.0 fL [place] [facility].; [facility] [employer]. Monocytes (Bld) [#/Vol] 970 {Cells}/uL Abnormal 20 0 - 900 {Cells}/uL [place] [facility].; [employer], [employer]. Monocytes/100 WBC (Bld) 9 % Normal 0 - 10 % H [facility].; [place] [employer], [facility]. Neutrophils (Bld) [#/Vol] 6250 {Cells}/uL Normal 1800 - 8000 {Cells}/uL [place] [facility], [employer].; [employer], [employer]. Neutrophils/100 WBC (Bld) 59 % Normal 40 - 70 % [place] [facility].; [employer]. Platelets (Bld) [#/Vol] 239 10*3/uL Normal 140 - 400 10*3/uL [employer].; [employer]. RBC (Bld) [#/Vol] 4.46 10*6/uL Normal 3.80 - 5.1 0 10*6/uL [employer].; [employer]. WBC (Bld) [#/Vol] 10.6 10*3/uL Normal 4.5 - 13.0 10*3/uL [employer].; [employer]. Laboratory - Specimen inform ationon 12-25-2011 Appearance (U) Clear Normal [employer].; [employer]. Color (U) Yellow Normal [employer].; [employer]. Laboratory - Urinalysison Glucose Test strip (U) [Mass/Vol] Negative Normal [employer].; [employer]. Leukocyte esterase Test strip Ql (U) Negative Normal [employer].; [employer]. Nitrite Ql (U) Negative Normal [employer].; [employer]. Protein Ql (U) Negative Normal [employer].; [employer]. No Panel Informationon 12-24 UA - UROBILINOGEN 0.2 mg/dL Normal [employer].; [employer]. Vital Signs Date Time Vital Sign Value Performing Clinician Facility 12-21-2024 10:25-040 Body height 160.02 cm [employer] Work Phone: [facility] 12-21-2024 10:23-0400 Body mass index (BMI) [Ratio] 50.2 kg/m2 [employer] Work Phone: [facility] 12-21-2024 10:23-0400 Body weight 128.62 kg [employer] Work Phone: [facility] 12-21-2024 10:23-0400 Diastolic blood pressure 70 mm[Hg] Louise Benson PA-C Work Phone: [facility] 12-21-2024 10:23-0400 Systolic blood pressure 120 mm[Hg] Louise Benson PA-C Work Phone: [facility] 12-06-2024 15:34-0400 Body height 160.02 cm Louise Benson PA-C Work Phone: [facility] 12-06-2024 15:34-0400 Body mass index (BMI) [Ratio] 49.8 kg/m2 Louise Benson PA-C Work Phone: [facility] 12-06-2024 15:34-0400 Body weight 127.51 kg Louise Benson PA-C Work Phone: [facility] 12-06-2024 15:34-0400 Diastolic blood pressure 72 mm[Hg] Louise Benson PA-C Work Phone: [facility] 12-06-2024 15:34-0400 Systolic blood pressure 126 mm[Hg] Louise Benson PA-C Work Phone: [facility] 11-15-2024 13:35-0400 Body height 160.02 cm Louise Benson PA-C Work Phone: [facility] 11-15-2024 13:35-0400 Body mass index (BMI) [Ratio] 48.4 kg/m2 Louise Benson PA-C Work Phone: [facility] 11-15-2024 13:35-0400 Body weight 124.05 kg Louise Benson PA-C Work Phone: [facility] 11-15-2024 13:35-0400 Diastolic blood pressure 78 mm[Hg] Louise Benson PA-C Work Phone: [facility] 11-15-2024 13:35-0400 Systolic blood pressure 118 mm[Hg] Louise Benson PA-C Work Phone: [facility] 10-17-2024 15:36-0400 Body height 160.02 cm [employer] PA-C Work Phone: [facility] 10-17-2024 15:36-0400 Body mass index (BMI) [Ratio] 49.3 kg/m2 Louise Benson PA-C Work Phone: [facility] 10-17-2024 15:36-0400 Body weight 126.21 kg Louise Benson PA-C Work Phone: [facility] 10-17-2024 15:36-0400 Diastolic blood pressure 74 mm[Hg] Louise Benson PA-C Work Phone: [facility] 10-17-2024 15:36-0400 Systolic blood pressure 120 mm[Hg] Louise Benson PA-C Work Phone: [facility] 09-19-2024 14:11-0400 Body height 160.02 cm Louise [employer] PA-C Work Phone: [facility] 09-19-2024 14:11-0400 Body mass index (BMI) [Ratio] 48.3 kg/m2 Louise Benson PA-C Work Phone: [facility] 09-19-2024 14:11-0400 Body weight 123.83 kg Louise Benson PA-C Work Phone: [facility] 09-19-2024 14:11-0400 Diastolic blood pressure 78 mm[Hg] Louise Benson PA-C Work Phone: [facility] 09-19-2024 14:11-0400 Systolic blood pressure 122 mm[Hg] Louise Benson PA-C Work Phone: [facility] 08-24-2024 14:44-0400 Body mass index (BMI) [Ratio] 47.7 kg/m2 Louise [employer] PA-C Work Phone: [facility] 08-24-2024 14:44-0400 Body weight 122.18 kg Louise Benson PA-C Work Phone: [facility] 08-24-2024 14:44-0400 Diastolic blood pressure 84 mm[Hg] Louise Benson PA-C Work Phone: [facility] 08-24-2024 14:44-0400 Systolic blood pressure 125 mm[Hg] Louise Benson PA-C Work Phone: [facility] 08-04-2024 14:29-0400 Body height 160.02 cm Louise Benson PA-C Work Phone: [facility] 08-04-2024 14:29-0400 Body mass index (BMI) [Ratio] 47.9 kg/m2 Louise Benson PA-C Work Phone: [facility] 08-04-2024 14:29-0400 Body weight 122.64 kg Louise Benson PA-C Work Phone: [facility] 07-29-2024 14:29-0400 Body height 160.02 cm Louise Benson PA-C Work Phone: [facility] 07-29-2024 14:25-0400 Body mass index (BMI) [Ratio] 47.7 kg/m2 Louise Benson PA-C Work Phone: [facility] 07-29-2024 14:25-0400 Body weight 122.12 kg Louise Benson PA-C Work Phone: [facility] 07-29-2024 14:25-0400 Diastolic blood pressure 81 mm[Hg] Louise Benson PA-C Work Phone: [facility] 07-29-2024 14:25-0400 Systolic blood pressure 125 mm[Hg] Louise Benson PA-C Work Phone: [facility] 07-21-2024 09:52-0400 Body mass index (BMI) [Ratio] 47.8 kg/m2 Louise Benson PA-C Work Phone: [facility] 07-21-2024 09:52-0400 Body weight 122.58 kg [employer] PA-C Work Phone: [facility] 07-21-2024 09:52-0400 Diastolic blood pressure 79 mm[Hg] Louise [employer] PA-C Work Phone: [facility] 07-21-2024 09:52-0400 Systolic blood pressure 122 mm[Hg] Louise [employer] PA-C Work Phone: [facility] 06-08-2024 08:58-0500 Body mass index (BMI) [Ratio] 46.9 kg/m2 Louise [employer] PA-C Work Phone: [facility] 06-08-2024 08:58-0500 Body weight 120.2 kg [employer] PA-C Work Phone: [facility] 06-08-2024 08:58-0500 Diastolic blood pressure 81 mm[Hg] [employer] PA-C Work Phone: [facility] 06-08-2024 08:58-0500 Systolic blood pressure 127 mm[Hg] Louise [employer] PA-C Work Phone: [facility] 04-27-2024 09:50-0500 Body height 160.02 cm Ren Wright RN [employer] [facility].; [employer]. 04-27-2024 09:50-0500 Body mass index (BMI) [Ratio] 44.46 kg/m2 Ren Wright RN [employer] [facility].; [employer]. 04-27-2024 09:50-0500 Body surface area Derived from formula 2.13 m2 Ren Wright RN [employer] [facility].; [employer]. 04-27-2024 09:50-0500 Body weight 113.85 kg Ren Wright RN [employer] [facility]. 04-27-2024 09:50-0500 Diastolic blood pressure 76 mm[Hg] Ren Wright RN [employer]. Comment on above: Patient Position: Sitting; Cuff Location : Left Arm; Cuff Size: Large 04-27-2024 09:50-0500 Heart rate 86 /min Ren Wright RN [employer]. Comment on above: Pattern: Regular 04-27-2024 09:50-0500 Systolic blood pressure 115 mm[Hg] Ren Wright RN [employer]. Comment on above: Patient Position: Sitting; Cuff Location : Left Arm; Cuff Size: Large 12-22-2023 11:02-0400 Body height 160.02 cm Ren Wright RN [place] [facility] [employer]. 12-22-2023 11:02-0400 Body mass index (BMI) [Ratio] 46.23 kg/m2 Ren Wright RN [place] [facility].; [employer]. 12-22-2023 11:02-0400 Body surface area Derived from formula 2.17 m2 Ren Wright RN [place] [facility].; [employer]. 12-22-2023 11:02-0400 Body weight 118.39 kg Ren Wright RN [place] [facility].; [employer]. 12-22-2023 11:02-0400 Diastolic blood pressure 81 mm[Hg] Ren Wright RN [employer]. Comment on above: Patient Position: Sitting; Cuff Location : Left Arm; Cuff Size: Standard 12-22-2023 11:02-0400 Heart rate 81 /min Ren Wright RN [employer].; [employer]. Comment on above: Pattern: Regular 12-22-2023 11:02-0400 Systolic blood pressure 118 mm[Hg] Ren Wright RN [employer]. Comment on above: Patient Position: Sitting; Cuff Location : Left Arm; Cuff Size: Standard 08-24-2023 10:03-0400 Body height 160.02 cm Aracelis Dueñas LPN [facility].; [facility] 08-24-2023 10:03-0400 Body mass index (BMI) [Ratio] 44.29 kg/m2 Aracelis Dueñas LPN [facility].; [facility] 08-24-2023 10:03-0400 Body surface area Derived from formula 2.13 m2 Aracelis Dueñas LPN [facility].; [facility] 08-24-2023 10:03040 Body weight 113.4 kg Aracelis Dueñas LPN [facility].; [facility] 08-24-2023 10:03-040 Diastolic blood pressure 74 mm[Hg] Aracelis Dueñas LPN [facility].; [facility]. Comment on above: Patient Position: Sitting; Cuff Location : Left Arm; Cuff Size: Standard 08-24-2023 10:03-0400 Heart rate 80 /min Aracelis Dueñas LPN [facility].; [facility]. Comment on above: Pattern: Regular 08-24-2023 10:03-0400 Systolic blood pressure 105 mm[Hg] Aracelis Dueñas LPN [facility].; [facility]. Comment on above: Patient Position: Sitting; Cuff Location : Left Arm; Cuff Size: Standard 06-03-2023 14:43-0500 Body height 160.02 cm PAWikiaC [employer] PA Work Phone: [facility] 06-03-2023 14:43-0500 Body mass index (BMI) [Ratio] 48.2 kg/m2 PA-C [employer] PA Work Phone: [facility] 06-03-2023 14:43-0500 Body weight 123.43 kg PA-C [employer] PA Work Phone: [facility] 06-03-2023 14:43-0500 Diastolic blood pressure 82 mm[Hg] PA-C [employer] PA Work Phone: [facility] 06-03-2023 14:43-0500 Systolic blood pressure 132 mm[Hg] PA-C [employer] PA Work Phone: [facility] 04-27-2023 10:53-0500 Body height 160.02 cm Mary Haji MA [facility], [facility].; [facility] 04-27-2023 10:53-0500 Body mass index (BMI) [Ratio] 50 kg/m2 Mary Haji MA [facility].; [facility] 04-27-2023 10:53-0500 Body surface area Derived from formula 2.24 m2 Mary Haji MA [facility].; [facility] 04-27-2023 10:53-0500 Body weight 128.03 kg Mary Haji MA [facility].; [facility] 04-27-2023 10:53-0500 Diastolic blood pressure 84 mm[Hg] Mary Haji MA [facility].; [facility]. Comment on above: Patient Position: Sitting; Cuff Location : Left Arm; Cuff Size: Standard 04-27-2023 10:53-0500 Heart rate 88 /min Mary Haji MA [facility].; [facility]. Comment on above: Pattern: Regular 04-27-2023 10:53-0500 Systolic blood pressure 127 mm[Hg] Mary Haji MA [facility].; [facility]. Comment on above: Patient Position: Sitting; Cuff Location : Left Arm; Cuff Size: Standard 03-25-2023 09:39-0500 Body height 160.02 cm PA-C [employer] PA Work Phone: [facility] 03-25-2023 09:37-0500 Body mass index (BMI) [Ratio] 49.6 kg/m2 PA-C [employer] PA Work Phone: [facility] 03-25-2023 09:37-0500 Body weight 127 kg PA-C [employer] PA Work Phone: [facility] 03-25-2023 09:37-0500 Diastolic blood pressure 84 mm[Hg] PA-C Louise Benson PA Work Phone: [facility] 03-25-2023 09:37-0500 Systolic blood pressure 120 mm[Hg] [facility] Work [facility]: [facility] 11-21-2020 13:59-0400 Body height 160.02 cm Veronica Abdul LPN [facility], [facility].; [place] [facility]. 11-21-2020 13:59-0400 Body mass index (BMI) [Ratio] 50.84 kg/m2 [facility], [facility].; [place] [facility], [facility]. 11-21-2020 13:59-0400 Body surface area Derived from formula 2.25 m2 Veronica Abdul LPN [facility], [facility].; [facility], [facility]. 11-21-2020 13:59-0400 Body weight 130.18 kg Veronica [facility], [facility].; [facility], [facility]. 11-21-2020 13:59-0400 Diastolic blood pressure 75 mm[Hg] Veronica [facility], [facility].; [facility], [employer]. Comment on above: Patient Position: Sitting; Cuff Location : Left Arm; Cuff Size: Standard 11-21-2020 13:59-0400 Heart rate 102 /min Veronica Abdul LPN [facility], [facility].; [employer]. Comment on above: Pattern: Regular 11-21-2020 13:59-0400 Systolic blood pressure 112 mm[Hg] Veronica Abdul LPN [facility], [facility].; [employer]. Comment on above: Patient Position: Sitting; Cuff Location : Left Arm; Cuff Size: Standard 08-09-2019 14:22-0400 Body height 160.02 cm Jerry Newman LPN [facility], [facility].; [employer] 08-09-2019 14:22-0400 Body mass index (BMI) [Ratio] 52.26 kg/m2 Jerry Newman LPN [facility], [facility].; [employer]. 08-09-2019 14:22-0400 Body surface area Derived from formula 2.28 m2 Neilee L Vess [employer] [place] [employer] [facility].; [employer]. 08-09-2019 14:22-0400 Body temperature 99.4 [degF] Neilee L Vess [employer]. Comment on above: Method: Tympanic 08-09-2019 14:22-0400 Body weight 133.81 kg Neilee L Vess [employer].; [employer]. 08-09-2019 14:22-0400 Diastolic blood pressure 76 mm[Hg] Neilee L Vess [employer].; [employer]. Comment on above: Patient Position: Sitting; Cuff Location : Left Arm; Cuff Size: Standard 08-09-2019 14:22-0400 Heart rate 97 /min Neilee L Vess [employer].; [employer]. Comment on above: Pattern: Regular 08-09-2019 14:22-0400 Systolic blood pressure 131 mm[Hg] Neilee L Vess [employer].; [employer]. Comment on above: Patient Position: Sitting; Cuff Location : Left Arm; Cuff Size: Standard 08-01-2019 11:25-0400 Body height 160.02 cm Louise Moon PA-C Work Phone: [place] [facility].; [employer] [facility]. 06-23-2019 08:18-0500 Body height 160.02 cm Neilee L Vess [employer].; [employer]. 06-23-2019 08:18-0500 Body mass index (BMI) [Ratio] 51.72 kg/m2 Neilee L Vess [employer].; [employer]. 06-23-2019 08:18-0500 Body surface area Derived from formula 2.27 m2 Neilee L Vess [employer].; [employer]. 06-23-2019 08:18-0500 Body temperature 99.7 [degF] Neilee L Vess [employer] ST[employer]ARD [facility], [facility] [employer]. Comment on above: Method: Tympanic 06-23-2019 08:18-0500 Body weight 132.45 kg Neteresae Virginie Vess [employer] [facility], [facility] [employer] 06-23-2019 08:18-0500 Diastolic blood pressure 74 mm[Hg] Neilee L Vess [employer]ARD [facility], [facility].; [employer]. Comment on above: Patient Position: Sitting; Cuff Location : Left Arm; Cuff Size: Standard 06-23-2019 08:18-0500 Heart rate 99 /min Neilee L Vess [employer]ARD [facility], [facility].; [employer], [employer]. Comment on above: Pattern: Regular 06-23-2019 08:18-0500 Inhaled oxygen concentration 20 % Neilee L Vess [employer] [facility], [employer], [employer]. Comment on above: Room air 06-23-2019 08:18-0500 Inhaled oxygen concentration 21 % Neilee L Vess [employer] [place] [facility], [facility].; [employer]. Comment on above: Room air 06-23-2019 08:18-0500 SaO2% (BldA) [Mass fraction] 98 % Neilee L Vess [employer] [facility], [facility].; [employer]. 06-23-2019 08:18-0500 Systolic blood pressure 135 mm[Hg] Neilee L Vess [employer] [place] [facility], [employer].; [employer]. Comment on above: Patient Position: Sitting; Cuff Location : Left Arm; Cuff Size: Standard 05-23-2019 14:05-0500 Body height 160.02 cm Neilee L Vess [employer] [place] [facility], [facility].; [employer]. 05-23-2019 14:05-0500 Body mass index (BMI) [Ratio] 51.72 kg/m2 Neilee L Vess [employer] [place] [facility] [employer]. 05-23-2019 14:05-0500 Body surface area Derived from formula 2.27 m2 Neilee L Vess [employer] [place] [facility].; [employer]. 05-23-2019 14:05-0500 Body weight 132.45 kg Neilee L Vess [employer]. 05-23-2019 14:05-0500 Diastolic blood pressure 76 mm[Hg] Neilee L Vess [employer]ARD [employer]. Comment on above: Patient Position: Sitting; Cuff Location : Right Arm; Cuff Size: Standard 05-23-2019 14:05-0500 Heart rate 96 /min Neilee L Vess [employer]. Comment on above: Pattern: Regular 05-23-2019 14:05-0500 Systolic blood pressure 124 mm[Hg] Neilee L Vess [employer]. Comment on above: Patient Position: Sitting; Cuff Location : Right Arm; Cuff Size: Standard 02-14-2019 08:50-0400 Body height 160.02 cm Neilee L Vess [employer]. 02-14-2019 08:50-0400 Body mass index (BMI) [Ratio] 50.66 kg/m2 Neilee L Vess [employer]. 02-14-2019 08:50-0400 Body surface area Derived from formula 2.25 m2 Neilee L Vess [employer]. 02-14-2019 08:50-0400 Body weight 129.73 kg Neilee L Vess [employer].; [employer]. 02-14-2019 08:50-0400 Diastolic blood pressure 74 mm[Hg] Neilee L Vess [employer]. Comment on above: Patient Position: Sitting; Cuff Location : Right Arm; Cuff Size: Standard 02-14-2019 08:50-0400 Heart rate 86 /min Neilee L Vess [employer]. Comment on above: Pattern: Regular 02-14-2019 08:50-0400 Systolic blood pressure 125 mm[Hg] Neilee L Vess [employer]. Comment on above: Patient Position: Sitting; Cuff Location : Right Arm; Cuff Size: Standard 01-13-2019 08:14-0400 Body height 160.02 cm Neilee L Vess [employer] 01-13-2019 08:14-0400 Body mass index (BMI) [Ratio] 51.19 kg/m2 Neilee L Vess [employer]. 01-13-2019 08:14-0400 Body surface area Derived from formula 2.26 m2 Neilee L Vess [employer]. 01-13-2019 08:14-0400 Body weight 131.09 kg Neilee L Vess [employer]. 01-13-2019 08:14-0400 Diastolic blood pressure 72 mm[Hg] Neilee L Vess [employer]. Comment on above: Patient Position: Sitting; Cuff Location : Right Arm; Cuff Size: Standard 01-13-2019 08:14-0400 Heart rate 79 /min Neilee L Vess [employer]. Comment on above: Pattern: Regular 01-13-2019 08:14-0400 Systolic blood pressure 115 mm[Hg] Neilee L Vess [employer]. Comment on above: Patient Position: Sitting; Cuff Location : Right Arm; Cuff Size: Standard 2018 14:54-0400 Body height 160.02 cm Brooke Heard RN [employer]. 2018 14:54-0400 Body mass index (BMI) [Ratio] 50.56 kg/m2 Brooke Heard RN [employer].; [employer]. 2018 14:54-0400 Body surface area Derived from formula 2.25 m2 Brooke Heard RN [employer].; [employer]. 2018 14:54-0400 Body temperature 99.2 [degF] Brooke Heard RN [employer].; [employer]. Comment on above: Method: Tympanic 2018 14:54-0400 Body weight 129.46 kg Brooke Heard RN [employer] 2018 14:54-0400 Diastolic blood pressure 83 mm[Hg] Brooke Heard RN [employer].; [employer]. Comment on above: Patient Position: Sitting; Cuff Location : Left Arm; Cuff Size: Standard 2018 14:54-0400 Heart rate 107 /min Brooke Heard RN [employer].; [employer]. Comment on above: Pattern: Regular 2018 14:54-0400 Systolic blood pressure 126 mm[Hg] Brooke Heard RN [employer]. Comment on above: Patient Position: Sitting; Cuff Location : Left Arm; Cuff Size: Standard 09-02-2018 07:57-0400 Body height 160.02 cm Brooke Heard RN [employer]. 09-02-2018 07:57-0400 Body mass index (BMI) [Ratio] 48.2 kg/m2 Brooke Heard RN [employer].; [employer] 09-02-2018 07:57-0400 Body surface area Derived from formula 2.2 m2 Brooke Heard RN [employer] 09-02-2018 07:57-0400 Body temperature 99 [degF] Brooke Heard RN [employer].; [employer]. Comment on above: Method: Tympanic 09-02-2018 07:57-0400 Body weight 123.42 kg Brooke Heard RN [employer]. 09-02-2018 07:57-0400 Diastolic blood pressure 84 mm[Hg] Brooke Heard RN [employer].; [employer]. Comment on above: Patient Position: Sitting; Cuff Location : Left Arm; Cuff Size: Standard 09-02-2018 07:57-0400 Heart rate 89 /min Brooke Heard RN [employer].; [employer]. Comment on above: Pattern: Regular 09-02-2018 07:57-0400 Systolic blood pressure 125 mm[Hg] Brooke Heard RN [employer].; [employer]. Comment on above: Patient Position: Sitting; Cuff Location : Left Arm; Cuff Size: Standard 06-30-2018 11:25-0400 Body height 160.02 cm Brooke Heard RN [employer].; [employer]. 06-30-2018 11:25-0400 Body mass index (BMI) [Ratio] 45.22 kg/m2 Brooke Heard RN [employer].; [employer]. 06-30-2018 11:25-0400 Body surface area Derived from formula 2.15 m2 Brooke Heard RN [employer].; [employer]. 06-30-2018 11:25-0400 Body temperature 99.5 [degF] Brooke Heard RN [employer].; [employer]. Comment on above: Method: Tympanic 06-30-2018 11:25-0400 Body weight 115.8 kg Brooke Heard RN [employer].; [employer]. 06-30-2018 11:25-0400 Diastolic blood pressure 74 mm[Hg] Brooke Heard RN [employer].; [employer]. Comment on above: Patient Position: Sitting; Cuff Location : Left Arm; Cuff Size: Standard 06-30-2018 11:25-0400 Heart rate 87 /min Brooke Heard RN [employer].; [employer]. Comment on above: Pattern: Regular 06-30-2018 11:25-0400 Systolic blood pressure 125 mm[Hg] Brooke Heard RN [employer].; [employer]. Comment on above: Patient Position: Sitting; Cuff Location : Left Arm; Cuff Size: Standard 08-04-2017 14:02-0400 Body height 160.02 cm Neilee L Vess PROC[employer] 08-04-2017 14:02-0400 Body mass index (BMI) [Ratio] 44.29 kg/m2 Neilee L Vess [employer] 08-04-2017 14:02-0400 Body surface area Derived from formula 2.13 m2 Neilee L Vess [employer]. 08-04-2017 14:02-0400 Body weight 113.4 kg Neilee L Vess [employer]. 08-04-2017 14:02-0400 Diastolic blood pressure 85 mm[Hg] Neilee L Vess [employer]. Comment on above: Patient Position: Sitting; Cuff Location : Left Arm; Cuff Size: Standard 08-04-2017 14:02-0400 Heart rate 123 /min Neilee L Vess [employer]. Comment on above: Pattern: Regular 08-04-2017 14:02-0400 Systolic blood pressure 140 mm[Hg] Neilee L Vess [employer], [employer]. Comment on above: Patient Position: Sitting; Cuff Location : Left Arm; Cuff Size: Standard 06-24-2017 15:33-0500 Body temperature 98.8 [degF] Brooke Heard RN [employer]. Comment on above: Method: Tympanic 06-24-2017 15:33-0500 Body weight 109.94 kg Brooke Heard RN [employer], [employer]. 06-24-2017 15:33-0500 Diastolic blood pressure 93 mm[Hg] Brooke Heard RN [employer], [employer]. Comment on above: Patient Position: Sitting; Cuff Location : Left Arm; Cuff Size: Standard 06-24-2017 15:33-0500 Heart rate 92 /min Brooke Heard RN [employer]. Comment on above: Pattern: Regular 06-24-2017 15:33-0500 Systolic blood pressure 143 mm[Hg] Brooke Heard RN [employer]. Comment on above: Patient Position: Sitting; Cuff Location : Left Arm; Cuff Size: Standard 06-18-2017 15:36-0500 Body height 160.02 cm Brooke Heard RN [employer].; [employer]. 06-18-2017 15:36-0500 Body mass index (BMI) [Ratio] 44.18 kg/m2 Brooke Heard RN [employer].; [employer]. 06-18-2017 15:36-0500 Body surface area Derived from formula 2.12 m2 Brooke Heard RN [employer].; [employer]. 06-18-2017 15:36-0500 Body temperature 98.6 [degF] Brooke Heard RN [employer]. Comment on above: Method: Tympanic 06-18-2017 15:36-0500 Body weight 113.13 kg Brooke Heard RN [employer]. 06-18-2017 15:36-0500 Diastolic blood pressure 71 mm[Hg] Brooke Heard RN [employer].; [employer]. Comment on above: Patient Position: Sitting; Cuff Location : Left Arm; Cuff Size: Standard 06-18-2017 15:36-0500 Heart rate 75 /min Brooke Heard RN [employer].; [employer]. Comment on above: Pattern: Regular 06-18-2017 15:36-0500 Systolic blood pressure 105 mm[Hg] Brooke Heard RN [employer].; [employer]. Comment on above: Patient Position: Sitting; Cuff Location : Left Arm; Cuff Size: Standard 05-21-2017 15:29-0500 Body height 160.02 cm Brooke Heard RN [employer].; [employer]. 05-21-2017 15:29-0500 Body mass index (BMI) [Ratio] 44.62 kg/m2 Brooke Heard RN [employer].; [employer]. 05-21-2017 15:29-0500 Body surface area Derived from formula 2.13 m2 Brooke Heard RN [employer].; [employer]. 05-21-2017 15:29-0500 Body temperature 98.1 [degF] Brooke Heard RN [employer].; [employer]. Comment on above: Method: Tympanic 05-21-2017 15:29-0500 Body weight 114.26 kg Brooke Heard RN [employer].; [employer]. 05-21-2017 15:29-0500 Diastolic blood pressure 94 mm[Hg] Brooke Heard RN [employer].; [employer]. Comment on above: Patient Position: Sitting; Cuff Location : Left Arm; Cuff Size: Standard 05-21-2017 15:29-0500 Heart rate 69 /min Brooke Heard RN [employer].; [employer]. Comment on above: Pattern: Regular 05-21-2017 15:29-0500 Systolic blood pressure 136 mm[Hg] Brooke Heard RN [employer].; [employer]. Comment on above: Patient Position: Sitting; Cuff Location : Left Arm; Cuff Size: Standard 03-25-2017 14:35-0500 Body height 160.02 cm Brooke Heard RN [employer].; [employer]. 03-25-2017 14:35-0500 Body mass index (BMI) [Ratio] 43.31 kg/m2 Brooke Heard RN [employer].; [employer]. 03-25-2017 14:35-0500 Body surface area Derived from formula 2.11 m2 Brooke Heard RN [employer].; [employer] 03-25-2017 14:35-0500 Body temperature 98.8 [degF] Brooke Heard RN [employer].; [employer]. Comment on above: Method: Tympanic 03-25-2017 14:35-0500 Body weight 110.91 kg Brooke Heard RN [place] [employer] 03-25-2017 14:35-0500 Diastolic blood pressure 73 mm[Hg] Brooke Heard RN [place] [employer]. Comment on above: Patient Position: Sitting; Cuff Location : Left Arm; Cuff Size: Standard 03-25-2017 14:35-0500 Heart rate 91 /min Brooke Heard RN [place] [employer]. Comment on above: Pattern: Regular 03-25-2017 14:35-0500 Systolic blood pressure 132 mm[Hg] Brooke Heard RN [place] [employer], [employer]. Comment on above: Patient Position: Sitting; Cuff Location : Left Arm; Cuff Size: Standard 02-24-2017 14:190500 Body height 160.02 cm Neilee L Vess PROCESS STEWARD [employer], [employer]. 02-24-2017 14:19-0500 Body mass index (BMI) [Ratio] 43.93 kg/m2 Neilee L Vess PROC[employer]ARD [employer] 02-24-2017 14:19-0500 Body surface area Derived from formula 2.12 m2 Neilee L Vess PROCESS STEWARD [employer].; [employer], [employer]. 02-24-2017 14:190500 Body weight 112.49 kg Neilee L Vess PROCESS ST[employer]ARD [employer], [employer]. 02-24-2017 14:19-0500 Diastolic blood pressure 74 mm[Hg] Neilee L Vess PROCESS STEWARD [employer]. Comment on above: Patient Position: Sitting; Cuff Location : Right Arm; Cuff Size: Standard 02-24-2017 14:19-0500 Heart rate 127 /min Neilee L Vess PROCESS ST[employer]ARD [employer]. Comment on above: Pattern: Regular 02-24-2017 14:19-0500 Systolic blood pressure 133 mm[Hg] Neilee L Vess PROCESS [employer]ARD [employer]. Comment on above: Patient Position: Sitting; Cuff Location : Right Arm; Cuff Size: Standard 10-16-2016 14:54-0400 Body height 160.02 cm Lang Ma Uptain CNM Work Phone: [employer]; [employer]. 10-16-2016 14:54-0400 Body mass index (BMI) [Percentile] Per age and sex 99 % Lang Ma Uptain CNM Work Phone: [employer]; [employer]. 10-16-2016 14:54-0400 Body mass index (BMI) [Ratio] 42.51 kg/m2 Pareto Networkstain CNM Work Phone: [employer]; [employer]. 10-16-2016 14:54-0400 Body surface area Derived from formula 2.09 m2 Clever Machine CNM Work Phone: [employer]; [employer] 10-16-2016 14:54-0400 Body temperature 99.6 [degF] Pareto Networkstain CNM Work Phone: [employer]; [employer]. Comment on above: Method: Tympanic 10-16-2016 14:54-0400 Body weight 108.86 kg Clever Machine CNM Work Phone: [employer]; [employer]. 10-16-2016 14:54-0400 Diastolic blood pressure 74 mm[Hg] Pareto Networkstain CNM Work Phone: [employer]; [employer]. Comment on above: Patient Position: Sitting; Cuff Location : Right Arm; Cuff Size: Large 10-16-2016 14:54-0400 Heart rate 107 /min Pareto Networkstain CNM Work Phone: [employer]; [employer] Comment on above: Pattern: Regular 10-16-2016 14:54-0400 Inhaled oxygen concentration 20 % Crystal Uptain CNM Work Phone: [employer]; [employer]. Comment on above: Room air 10-16-2016 14:54-0400 Inhaled oxygen concentration 21 % Crystal Uptain CNM Work Phone: [employer].; [employer]. Comment on above: Room air 10-16-2016 14:54-0400 SaO2% (BldA) [Mass fraction] 99 % Crystal Uptain CNM Work Phone: [employer]; [employer]. 10-16-2016 14:54-0400 Systolic blood pressure 112 mm[Hg] Crystal Uptain CNM Work Phone: [employer].; [employer]. Comment on above: Patient Position: Sitting; Cuff Location : Right Arm; Cuff Size: Large 07-14-2016 11:060400 Body height 160.02 cm Brooke Heard RN [employer]. 07-14-2016 11:06-0400 Body mass index (BMI) [Percentile] Per age and sex 99 % Brooke Heard RN [employer].; [employer]. 07-14-2016 11:06-0400 Body mass index (BMI) [Ratio] 42.74 kg/m2 Brooke Heard RN [employer].; [employer]. 07-14-2016 11:06-0400 Body surface area Derived from formula 2.09 m2 Brooke Heard RN [employer].; [employer]. 07-14-2016 11:06-0400 Body temperature 99.4 [degF] Brooke Heard RN [employer].; [employer]. Comment on above: Method: Tympanic 07-14-2016 11:06-0400 Body weight 109.45 kg Brooke Heard RN [employer].; [employer]. 07-14-2016 11:06-0400 Diastolic blood pressure 82 mm[Hg] Brooke Heard RN [employer]. Comment on above: Patient Position: Sitting; Cuff Location : Left Arm; Cuff Size: Standard 07-14-2016 11:06-0400 Heart rate 106 /min Brooke Heard RN [employer].; [employer]. Comment on above: Pattern: Regular 07-14-2016 11:06-0400 Systolic blood pressure 151 mm[Hg] Brooke Heard RN [employer]. Comment on above: Patient Position: Sitting; Cuff Location : Left Arm; Cuff Size: Standard 04-02-2016 15:04-0500 Body height 160.02 cm Brooke Heard RN [employer]. 04-02-2016 15:04-0500 Body mass index (BMI) [Percentile] Per age and sex 99 % Brooke Heard RN [employer].; [employer]. 04-02-2016 15:04-0500 Body mass index (BMI) [Ratio] 43.58 kg/m2 Brooke Heard RN [employer].; [employer]. 04-02-2016 15:04-0500 Body surface area Derived from formula 2.11 m2 Brooke Heard RN [employer].; [employer]. 04-02-2016 15:04-0500 Body temperature 99.5 [degF] Brooke Heard RN [employer].; [employer]. Comment on above: Method: Tympanic 04-02-2016 15:04-0500 Body weight 111.59 kg Brooke Heard RN [employer]. 04-02-2016 15:04-0500 Diastolic blood pressure 86 mm[Hg] Brooke Heard RN [employer].; [employer]. Comment on above: Patient Position: Sitting; Cuff Location : Left Arm; Cuff Size: Standard 04-02-2016 15:04-0500 Heart rate 103 /min Brooke Heard RN [employer] [facility] Comment on above: Pattern: Regular 04-02-2016 15:04-0500 Systolic blood pressure 142 mm[Hg] Brooke Heard RN [facility], [facility].; [facility] Hospital[facility]. Comment on above: Patient Position: Sitting; Cuff Location : Left Arm; Cuff Size: Standard 09-14-2015 14:33-0400 Body height 160.02 cm Margoth Nathan [facility], Inc.; [place] [facility], [employer]. 09-14-2015 14:33-0400 Body mass index (BMI) [Percentile] Per age and sex 99 % [facility] Nathan [facility], Inc.; [place] [facility], [employer]. 09-14-2015 14:33-0400 Body mass index (BMI) [Ratio] 44.64 kg/m2 [facility] Nathan [facility], [facility].; [place] [employer], [employer]. 09-14-2015 14:33-0400 Body surface area Derived from formula 2.13 m2 [facility] Nathan [facility], [facility].; [place] [employer], [employer]. 09-14-2015 14:33-0400 Body temperature 97.4 [degF] [facility] [place] [facility], [facility].; [employer]. Comment on above: Method: Tympanic 09-14-2015 14:33-0400 Body weight 114.31 kg Margoth Nathan PROCESS STEWARD [facility], [facility].; [place] [facility], [employer]. 03-06-2015 14:15-0500 Body height 160.02 cm Margoth Nathan PROCESS STEWARD [facility], [facility].; [place] [employer]. 03-06-2015 14:15-0500 Body mass index (BMI) [Percentile] Per age and sex 99 % [facility] Nathan [facility], [facility].; [place] [employer]. 03-06-2015 14:15-0500 Body mass index (BMI) [Ratio] 46.23 kg/m2 Margoth Nathan [facility], Inc.; [place] [employer]. 03-06-2015 14:15-0500 Body surface area Derived from formula 2.17 m2 Zeinab Evans [facility], Inc.; [employer], [employer]. 03-06-2015 14:15-0500 Body temperature 99.2 [degF] Zeinab Evans [facility], Inc.; [employer]. Comment on above: Method: Tympanic 03-06-2015 14:15-0500 Body weight 118.39 kg Zeinab Evans [facility], Inc.; [employer] 03-06-2015 14:15-0500 Diastolic blood pressure 80 mm[Hg] Zeinab Evans [facility], [employer].; [employer]. Comment on above: Patient Position: Sitting; Cuff Location : Left Arm; Cuff Size: Large 03-06-2015 14:15-0500 Heart rate 105 /min Zeinab Evans [facility], Inc.; [employer]. Comment on above: Pattern: Regular 03-06-2015 14:15-0500 Inhaled oxygen concentration 20 % MargothYane Evans [facility], Inc.; [employer]. Comment on above: Room air 03-06-2015 14:15-0500 Inhaled oxygen concentration 21 % Zeinab Evans [facility], [employer].; [employer]. Comment on above: Room air 03-06-2015 14:15-0500 SaO2% (BldA) [Mass fraction] 98 % Zeinab Evans [facility], Inc.; [employer] 03-06-2015 14:15-0500 Systolic blood pressure 118 mm[Hg] Zeinab Evans [facility], [employer].; [employer]. Comment on above: Patient Position: Sitting; Cuff Location : Left Arm; Cuff Size: Large 10-05-2014 11:02-0400 Body height 160.02 cm Yolande Upton [facility], [facility].; [employer]. 10-05-2014 11:02-0400 Body mass index (BMI) [Percentile] Per age and sex 99 % Yolande Upton [employer].; [employer], [facility]. 10-05-2014 11:02-0400 Body mass index (BMI) [Ratio] 44.64 kg/m2 Yolandeeleonora Upton [facility], [facility].; [employer] 10-05-2014 11:02-0400 Body surface area Derived from formula 2.13 m2 Yolande Devon Haydenbaugh [facility], [facility].; [employer], [facility]. 10-05-2014 11:02-0400 Body weight 114.31 kg Yolande Devon Haydenbaugh [facility], [facility].; [employer], [employer]. 10-05-2014 11:02-0400 Diastolic blood pressure 89 mm[Hg] Yolande Devon Haydenbaugh [facility], [facility].; [employer], [employer]. Comment on above: Patient Position: Sitting; Cuff Location : Left Arm; Cuff Size: Standard 10-05-2014 11:02-0400 Heart rate 80 /min Yolande Devon Haydenballoyd [facility], [facility].; [employer], [employer]. Comment on above: Pattern: Regular 10-05-2014 11:02-0400 Systolic blood pressure 137 mm[Hg] Yolande Haydenbaugh [facility], [facility].; [employer], [employer]. Comment on above: Patient Position: Sitting; Cuff Location : Left Arm; Cuff Size: Standard 04-14-2014 14:45-0500 Body height 160.02 cm Leny Arredondo LPN [facility], [facility].; [employer]. 04-14-2014 14:45-0500 Body mass index (BMI) [Percentile] Per age and sex 99 % [facility], [facility].; [employer], [employer]. 04-14-2014 14:45-0500 Body mass index (BMI) [Ratio] 43.58 kg/m2 [facility], [facility].; [employer], [employer]. 04-14-2014 14:45-0500 Body surface area Derived from formula 2.11 m2 Leny Arredondo PROCESS STEWARD [place] [facility], [facility].; [employer]. 04-14-2014 14:45-0500 Body temperature 99.1 [degF] Leny Arredondo [facility] [employer]. 04-14-2014 14:45-0500 Body weight 111.59 kg Leny Arredondo [facility] [employer]. 10-14-2013 10:25-0400 Body height 158.75 cm Crystal Uptain CNM Work Phone: [employer].; [employer]. 10-14-2013 10:25-0400 Body mass index (BMI) [Percentile] Per age and sex 99 % Lang Ma Uptain CNM Work Phone: [employer].; [employer]. 10-14-2013 10:25-0400 Body mass index (BMI) [Ratio] 43.92 kg/m2 Crystal Uptain CNM Work Phone: [employer].; [employer]. 10-14-2013 10:25-0400 Body surface area Derived from formula 2.09 m2 Crystal Uptain CNM Work Phone: [employer].; [employer]. 10-14-2013 10:25-0400 Body temperature 99.1 [degF] Crystal Uptain CNM Work Phone: [employer].; [employer]. Comment on above: Method: Tympanic 10-14-2013 10:25-0400 Body weight 110.68 kg Crystal Uptain CNM Work Phone: [employer].; [employer]. 01-12-2013 14:05-0400 Body height 160.02 cm Zeinab Evans [facility] [employer]. 01-12-2013 14:05-0400 Body mass index (BMI) [Percentile] Per age and sex 99 % Zeinab Evans [facility] [employer].; [employer]. 01-12-2013 14:05-0400 Body mass index (BMI) [Ratio] 39.68 kg/m2 Zeinab Evans [facility], Inc.; [employer] 01-12-2013 14:05-0400 Body surface area Derived from formula 2.03 m2 Zeinab Evans [facility], Inc.; [employer] 01-12-2013 14:05-0400 Body temperature 99.8 [degF] [facility] Nathan [facility], Inc.; [employer] Comment on above: Method: Tympanic 01-12-2013 14:05-0400 Body weight 101.61 kg [facility]oth [facility].; [employer] 10-08-2012 09:19-0400 Body height 157.48 cm Leny Arredondo [facility], Inc.; [employer] 10-08-2012 09:19-0400 Body mass index (BMI) [Percentile] Per age and sex 99 % Leny Arredondo [facility], [facility].; [employer] 10-08-2012 09:19-0400 Body mass index (BMI) [Ratio] 40.6 kg/m2 Leny Arredondo [facility], [facility].; [employer] 10-08-2012 09:19-0400 Body surface area Derived from formula 2 m2 Leny Arredondo [facility], [facility].; [employer] 10-08-2012 09:19-0400 Body temperature 97.8 [degF] Leny Arredondo [facility], [facility].; [employer] 10-08-2012 09:19-0400 Body weight 100.7 kg Leny Arredondo [facility], [facility].; [employer], [employer]. 08-17-2012 09:09-0400 Body height 157.48 cm Zeinab Evans [facility], [facility].; [employer]. 08-17-2012 09:09-0400 Body mass index (BMI) [Percentile] Per age and sex 99 % Zeinab Mathisey [facility] ST[facility] 08-17-2012 09:09-0400 Body mass index (BMI) [Ratio] 40.06 kg/m2 Zeinab Evans TAMARA [facility], Inc.; [employer] 08-17-2012 09:09-0400 Body surface area Derived from formula 1.99 m2 Margoth Nathan TAMARA [facility], Inc.; [employer] 08-17-2012 09:09-0400 Body weight 99.34 kg Zeinab Evans TAMARA [facility], Inc.; [employer] 08-17-2012 09:09-0400 Diastolic blood pressure 79 mm[Hg] Zeinab Evans TAMARA [facility], Inc.; [employer] Comment on above: Patient Position: Sitting; Cuff Location : Left Arm; Cuff Size: Large 08-17-2012 09:09-0400 Heart rate 81 /min Zeinab Evans TAMARA [facility], Inc.; [employer] Comment on above: Pattern: Regular 08-17-2012 09:09-0400 Systolic blood pressure 133 mm[Hg] Zeinab Evans PROCESS STEWARD [place] [facility], Inc.; [employer], [employer] Comment on above: Patient Position: Sitting; Cuff Location : Left Arm; Cuff Size: Large 06-24-2012 15:54-0500 Body height 160.02 cm Mallory Siddiqui LPN [facility], Inc.; [employer] 06-24-2012 15:54-0500 Body mass index (BMI) [Percentile] Per age and sex 99 % Mallory Siddiuqi LPN [place] [facility], Inc.; [employer], [employer] 06-24-2012 15:54-0500 Body mass index (BMI) [Ratio] 39.19 kg/m2 Mallory Siddiqui LPN [place] [facility], Inc.; [employer] 06-24-2012 15:54-0500 Body surface area Derived from formula 2.02 m2 Mallory Siddiqui LPN [place] [facility], Inc.; [employer] 06-24-2012 15:54-0500 Body temperature 100 [degF] Mallory Wesurinder MCDONALD [facility], Inc.; [employer], [employer]. Comment on above: Method: Tympanic 06-24-2012 15:54-0500 Body weight 100.36 kg Mallory Artur MCDONALD [facility], Inc.; [employer] 06-24-2012 15:54-0500 Heart rate 87 /min Mallory Siddiqui [facility], Inc.; [employer] Comment on above: Pattern: Regular 06-24-2012 15:54-0500 Inhaled oxygen concentration 20 % Mallory Siddiqui [facility], [facility].; [employer], [employer]. Comment on above: Room air 06-24-2012 15:54-0500 Inhaled oxygen concentration 21 % [facility] Inc.; [employer], [employer]. Comment on above: Room air 06-24-2012 15:54-0500 SaO2% (BldA) [Mass fraction] 98 % Mallory Siddiqui [facility], Inc.; [employer], [employer]. 12-25-2011 15:43-0400 Body height 160.02 cm [facility], [facility].; [employer], [employer]. 12-25-2011 15:43-0400 Body mass index (BMI) [Percentile] Per age and sex 99 % Mallory Siddiqui LPN [facility], Inc.; [place] [employer], [employer]. 12-25-2011 15:43-0400 Body mass index (BMI) [Ratio] 39.7 kg/m2 Mallory Siddiqui LPN [place] [facility], [facility].; [employer], [employer]. 12-25-2011 15:43-0400 Body surface area Derived from formula 2.03 m2 Mallory Siddiqui LPN [place] [facility], [facility].; [employer], [employer]. 12-25-2011 15:43-0400 Body temperature 99.7 [degF] Mallory Siddiqui [facility], Inc.; [employer]. Comment on above: Method: Tympanic 12-25-2011 15:43-0400 Body weight 101.66 kg Mallory Siddiqui TAMARA [employer].; [employer]. 12-25-2011 15:43-0400 Diastolic blood pressure 85 mm[Hg] Mallory Vogtsurinder MCDONALD [employer], [facility].; [employer]. Comment on above: Patient Position: Sitting; Cuff Location : Left Arm; Cuff Size: Standard 12-25-2011 15:43-0400 Heart rate 101 /min Mallory Vogtsurinder MCDONALD [employer].; [employer]. Comment on above: Pattern: Regular 12-25-2011 15:43-0400 Systolic blood pressure 129 mm[Hg] Mallory Siddiqui TAMARA [employer].; [employer]. Comment on above: Patient Position: Sitting; Cuff Location : Left Arm; Cuff Size: Standard 09-22-2011 09:11-0400 Body height 160.02 cm Pareto Networkstain CNM Work Phone: [employer].; [employer] 09-22-2011 09:11-0400 Body mass index (BMI) [Percentile] Per age and sex 99 % Pareto Networkstain CNM Work Phone: [employer].; [employer]. 09-22-2011 09:11-0400 Body mass index (BMI) [Ratio] 38.26 kg/m2 Clever Machine CNM Work Phone: [employer].; [employer] 09-22-2011 09:11-0400 Body surface area Derived from formula 2 m2 Pareto Networkstain CNM Work Phone: [employer].; [employer]. 09-22-2011 09:11-0400 Body temperature 97.4 [degF] Pareto Networkstain CNM Work Phone: [employer].; [employer]. Comment on above: Method: Tympanic 09-22-2011 09:11-0400 Body weight 97.98 kg Pareto Networkstain CNM Work Phone: [place] [employer].; [employer]. 09-22-2011 09:110400 Diastolic blood pressure 70 mm[Hg] Lang Ma Uptain CNM Work Phone: [place] [employer].; [employer]. Comment on above: Patient Position: Sitting; Cuff Location : Right Arm; Cuff Size: Large 09-22-2011 09:110400 Heart rate 74 /min Pareto Networkstain CNM Work Phone: [place] [employer].; [employer]. Comment on above: Pattern: Regular 09-22-2011 09:110400 Systolic blood pressure 103 mm[Hg] Pareto Networkstain CNM Work Phone: [place] [employer].; [employer]. Comment on above: Patient Position: Sitting; Cuff Location : Right Arm; Cuff Size: Large 07-23-2011 15:020400 Body height 160.02 cm Zeinab Evans [facility], [employer].; [employer]. 07-23-2011 15:02-0400 Body mass index (BMI) [Percentile] Per age and sex 99 % [facility] Nathan [facility], [facility].; [employer]. 07-23-2011 15:02-0400 Body mass index (BMI) [Ratio] 38.26 kg/m2 [facility] [place] [facility] [employer].; [employer]. 07-23-2011 15:02-0400 Body surface area Derived from formula 2 m2 [facility], [employer].; [employer]. 07-23-2011 15:02-0400 Body temperature 98.7 [degF] [facility] [place] [facility], [employer].; [employer]. Comment on above: Method: Tympanic 07-23-2011 15:02-0400 Body weight 97.98 kg Margoth [facility] [employer]. 06-13-2011 13:30-0500 Body height 159.38 cm Leny Arredondo [facility], [facility].; [place] [facility], [employer]. 06-13-2011 13:30-0500 Body mass index (BMI) [Percentile] Per age and sex 99 % Leny Arredondo PROCESS STEWARD [facility], Inc.; [employer], [employer]. 06-13-2011 13:30-0500 Body mass index (BMI) [Ratio] 38.21 kg/m2 Leny Arredondo [facility], [facility].; [employer], [employer]. 06-13-2011 13:30-0500 Body surface area Derived from formula 1.98 m2 Leny Arredondo [facility], Inc.; [employer], [employer]. 06-13-2011 13:30-0500 Body temperature 98.2 [degF] Leny Arredondo [facility], Inc.; [employer], [facility]. 06-13-2011 13:30-0500 Body weight 97.07 kg Leny Arredondo PROCESS STEWARD [facility], [facility].; [employer] [facility]. 02-24-2011 15:29-0500 Body height 156.21 cm Leny Arredondo [facility], Inc.; [employer], [employer]. 02-24-2011 15:29-0500 Body mass index (BMI) [Percentile] Per age and sex 99 % Leny Arredondo PROCESS STEWARD [facility], [facility].; [facility], [facility]. 02-24-2011 15:29-0500 Body mass index (BMI) [Ratio] 39.41 kg/m2 Leny Arredondo PROCESS STEWARD [facility], [facility].; [employer]. 02-24-2011 15:29-0500 Body surface area Derived from formula 1.95 m2 Leny Arredondo PROCESS STEWARD [facility], [facility].; [employer]. 02-24-2011 15:29-0500 Body temperature 99.3 [degF] Leny Arredondo PROCESS STEWARD [facility]. 02-24-2011 15:29-0500 Body weight 96.16 kg Leny [facility]redondo [facility] 01-07-2011 14:58-0400 Body height 158.75 cm Zeinab Evans [facility], [facility].; [facility] 01-07-2011 14:58-0400 Body mass index (BMI) [Percentile] Per age and sex 99 % Zeinab Evans [facility] 01-07-2011 14:58-0400 Body mass index (BMI) [Ratio] 38.16 kg/m2 Zeinab Evans [facility].; [employer] 01-07-2011 14:58-0400 Body surface area Derived from formula 1.97 m2 Margoth Nathan [facility], [facility].; [employer] 01-07-2011 14:58-0400 Body temperature 99.1 [degF] [facility] Nathan [facility], [facility].; [employer], [employer]. Comment on above: Method: Tympanic 01-07-2011 14:58-0400 Body weight 96.16 kg Zeinab Evans [facility], [facility].; [facility] 06-21-2010 15:40-0500 Body height 157.48 cm Crystal Uptain CNM Work Phone: [facility] [employer]. 06-21-2010 15:40-0500 Body mass index (BMI) [Percentile] Per age and sex 99 % Crystal Uptain CNM Work Phone: [facility].; [employer], [employer]. 06-21-2010 15:40-0500 Body mass index (BMI) [Ratio] 37.13 kg/m2 Crystal Uptain CNM Work Phone: [place] [facility].; [employer], [employer]. 06-21-2010 15:40-0500 Body surface area Derived from formula 1.92 m2 Crystal Uptain CNM Work Phone: [place] [facility].; [employer]. 06-21-2010 15:40-0500 Body temperature 98.5 [degF] Crystal Uptain CNM Work Phone: [facility].; [facility]. Comment on above: Method: Tympanic 06-21-2010 15:40-0500 Body weight 92.08 kg Crystal Uptain CNM Work Phone: [facility].; [facility]. Encounters Encounter Date Encounter Type Care Provider Facility Start: 12-21-2024 End: 12-21-[address] Mallory Dover [facility] Work Phone: Start: 12-21-2024 End: 12-21-2024 ambulatory Cart[employer]cuer PA-C Work Phone: [facility] Start: 12-13-2024 End: 12-13-2024 ambulatory [employer]Rescuer PA-C Work Phone: -Laboratory Start: 12-13-2024 End: 12-13-2024 Patient encounter procedure Bessie Mansfield LICENSED MARINE ENGINEER-C -Laboratory Work Phone: Start: 12-13-2024 End: 12-13-2024 ambulatory Bessie Mansfield LICENSED MARINE ENGINEER Facility:[facility] Start: 12-06-2024 End: 12-06-2024 ambulatory [employer]cuer PA-C Work Phone: [facility] Start: 12-06-2024 End: 12-06-2024 Patient encounter procedure Bessie Mansfield LICENSED MARINE ENGINEER-C -[facility] Work Phone: Start: 12-06-2024 End: 12-06-2024 ambulatory Bessie Mansfield LICENSED MARINE ENGINEER Facility:[facility] Start: 11-15-2024 End: 11-15-2024 Patient encounter procedure Bessie Shyla LICENSED MARINE ENGINEER-C -[facility] Work Phone: Start: 11-15-2024 End: 11-15-2024 ambulatory [employer]cuer PA-C Work Phone: [facility] Start: 10-24-2024 End: 10-24-2024 ambulatory [facility] Start: 10-17-2024 End: 10-17-2024 Patient encounter procedure Bessie Shyla LICENSED MARINE ENGINEER-C -[facility] Work Phone: Start: 10-17-2024 End: 10-17-2024 ambulatory [facility] PA-C Work Phone: [facility] Start: 10-10-2024 End: 10-10-2024 ambulatory AMEE SCHAFFER [facility] Start: 09-19-2024 End: 09-19-2024 Patient encounter procedure Ning Oquendo [facility] Work Phone: Start: 09-19-2024 End: 09-19-2024 ambulatory [facility] PA-C Work Phone: [facility] Work Phone: Start: 08-24-2024 End: 08-24-[address] Amee Schaffer MD [facility] Work Phone: Start: 08-24-2024 End: 08-24-2024 ambulatory Louise Hills PA Facility:[facility] Start: 08-05-2024 End: 08-05-2024 Patient encounter procedure Ning Oquendo [facility] Work Phone: Start: 08-05-2024 End: 08-05-2024 ambulatory [facility] PA-C Work Phone: [facility] Work Phone: Start: 08-05-2024 End: 08-05-2024 ambulatory Ning Oquendo Facility:[facility] Start: 07-29-2024 End: 07-29-2024 Patient encounter procedure Jenny So [facility] Work Phone: Start: 07-29-2024 End: 07-29-2024 ambulatory [facility] PA-C Work Phone: [facility] Work Phone: Start: 07-29-2024 End: 07-29-2024 ambulatory Jenny So Facility:[facility] Start: 07-21-2024 End: 07-21-2024 Patient encounter procedure Ning Oquendo CNM [facility] Work Phone: Start: 07-21-2024 End: 07-21-2024 ambulatory Ning Oquendo Facility:[facility] Start: 07-08-2024 Non-patient / Non-visit Hannah narayan RN -[facility] Work Phone: Start: 07-08-2024 ambulatory Hannah Mercado Facility :[facility] Start: 06-08-2024 End: 06-08-2024 Patient encounter procedure Leeann QUIROGAC [facility] Work Phone: Start: 06-08-2024 End: 06-08-2024 Patient encounter status Leeann QUIROGAC [facility] Start: 06-08-2024 End: 06-08-2024 ambulatory Leeann Hawkins Facility:[facility] Start: 04-27-2024 End: 04-27-2024 Office outpatient visit 15 minutes Crystal Uptain CNM Work Phone: [facility], [employer]. Start: 01-27-2024 End: 01-27-2024 Orders Crystal Uptain CNM Work Phone: [employer] Start: 12-22-2023 End: 12-22-2023 Office outpatient visit 15 minutes Crystal Uptain CNM Work Phone: [employer] [employer]. Start: 11-25-2023 End: 11-26-2023 ambulatory JAZMYN PAGE Doug [facility] Start: 10-19-2023 End: 10-20-2023 Orders Crystal Uptain CNM Work Phone: [employer]. Start: 09-09-2023 End: 09-09-2023 Orders Crystal Uptain CNM Work Phone: [facility] [employer] Start: 08-24-2023 End: 08-24-2023 Office outpatient visit 15 minutes Crystal Uptain CNM Work Phone: [employer]. Start: 08-24-2023 Follow-up encounter Crystal Up tain CNM Work Phone: [employer]. Start: 08-11-2023 End: 08-11-2023 Orders Crystal Uptain CNM Work Phone: [employer] Start: 06-05-2023 End: 06-05-2023 Orders Crystal Uptain CNM Work Phone: [employer] Start: 06-03-2023 End: 06-03-2023 ambulatory PA-C [employer] PA Work Phone: [facility] Work Phone: Start: 06-03-2023 End: 06-03-2023 Patient encounter procedure PA-C Cart[employer]cuer PA Work Phone: [facility]atory, Specimen Work Phone: Start: 06-03-2023 End: 06-03-2023 Patient encounter procedure PA-C Louise Luxury Retreats PA Work Phone: [facility] Work Phone: Start: 05-20-2023 End: 05-20-2023 Orders Crystal Uptain CNM Work Phone: [employer] Start: 05-13-2023 End: 05-13-2023 Orders Crystal Uptain CNM Work Phone: [employer] Start: 04-27-2023 End: 04-27-2023 Office outpatient visit 25 minutes Crystal Uptain CNM Work Phone: [employer] Start: 04-15-2023 End: 04-15-2023 ambulatory PA-C Louise Benson PA Work Phone: [facility] Work Phone: Start: 04-15-2023 End: 04-15-2023 Patient encounter procedure PA-C Louise Moon PA Work Phone: [facility] Work Phone: Start: 03-25-2023 End: 03-25-2023 ambulatory PA-C Louise Moon PA Work Phone: [facility] Work Phone: Start: 03-25-2023 End: 03-25-2023 Patient encounter procedure PA-C Louise Moon PA Work Phone: [facility], Specimen Work Phone: Start: 03-25-2023 End: 03-25-2023 Patient encounter procedure PA-C Louise Moon PA Work Phone: [facility] Work Phone: Start: 11-21-2020 End: 11-21-2020 Patient encounter procedure Crystal Uptain CNM Work Phone: [employer]. Start: 01-17-2020 End: 01-17-2020 Medication Crystal Uptain CNM Work Phone: [employer]. Start: 08-09-2019 End: 08-09-2019 Orders Crystal Uptain CNM Work Phone: [employer]. Start: 08-01-2019 End: 08-01-2019 Office outpatient visit 10 minutes Crystal Uptain CNM Work Phone: [employer]. Start: 06-23-2019 End: 06-23-2019 Office outpatient visit 15 minutes Crystal Uptain CNM Work Phone: [employer]. Start: 05-23-2019 End: 05-23-2019 Office outpatient visit 15 minutes Crystal Uptain CNM Work Phone: [employer] Start: 02-14-2019 End: 02-14-2019 Office outpatient visit 10 minutes Crystal Uptain CNM Work Phone: [employer] Start: 01-13-2019 End: 01-13-2019 Office outpatient visit 25 minutes Crystal Uptain CNM Work Phone: [employer] Start: 2018 End: 2018 Office outpatient visit 25 minutes Crystal Uptain CNM Work Phone: [employer] Start: 09-07-2018 End: 09-07-2018 Patient encounter procedure Crystal Uptain CNM Work Phone: [employer] Start: 09-02-2018 End: 09-02-2018 Office outpatient visit 15 minutes Crystal Uptain CNM Work Phone: [employer] Start: 06-30-2018 End: 06-30-2018 Office outpatient visit 15 minutes Crystal Uptain CNM Work Phone: [employer] Start: 05-13-2018 End: 05-13-2018 Telephone follow-up Crystal Uptain CNM Work Phone: [employer] Start: 05-06-2018 Patient encounter procedure MALLORY AGUILAR [facility] Start: 04-29-2018 End: 04-29-2018 Patient encounter procedure NATHAN NOBLES [facility] Start: 04-22-2018 Patient encounter procedure RED ALBERTO [facility] Start: 04-14-2018 End: 04-14-2018 Patient encounter procedure WANDER POLLACK [facility] Start: 04-05-2018 End: 04-05-2018 Patient encounter procedure SHARAN Saldivar [facility] Start: 03-08-2018 Patient encounter procedure [facility] Start: 02-11-2018 End: 02-11-2018 Patient encounter procedure SHARAN Saldivar [facility] Start: 01-28-2018 End: 01-28-2018 Patient encounter procedure PORSHA YUN [facility] Start: 01-11-2018 Patient encounter procedure SHARAN JEFFREY [facility] Start: 08-04-2017 End: 08-04-2017 Patient encounter procedure Crystal Uptain CNM Work Phone: [employer] Start: 06-24-2017 End: 06-24-2017 Office outpatient visit 10 minutes Crystal Uptain CNM Work Phone: [employer]. Start: 06-18-2017 End: 06-18-2017 Office outpatient visit 15 minutes Crystal Uptain CNM Work Phone: [employer]. Start: 05-21-2017 End: 05-21-2017 Office outpatient visit 15 minutes Crystal Uptain CNM Work Phone: [employer] Start: 04-21-2017 End: 04-21-2017 Medication Crystal Uptain CNM Work Phone: [employer] Start: 03-25-2017 End: 03-25-2017 Patient encounter procedure Crystal Uptain CNM Work Phone: [employer]. Start: 02-26-2017 End: 02-26-2017 Medication Crystal Uptain CNM Work Phone: [employer] Start: 02-24-2017 End: 02-24-2017 Patient encounter procedure Crystal Uptain CNM Work Phone: [employer] Start: 10-16-2016 End: 10-16-2016 Office outpatient visit 15 minutes Crystal Uptain CNM Work Phone: [employer] Start: 07-14-2016 End: 07-14-2016 Patient encounter procedure Crystal Uptain CNM Work Phone: [employer]. Start: 04-09-2016 End: 04-09-2016 Orders Crystal Uptain CNM Work Phone: [employer] Start: 04-09-2016 End: 04-09-2016 Medication Crystal Uptain CNM Work Phone: [employer] Start: 04-02-2016 End: 04-02-2016 Patient encounter procedure Crystal Uptain CNM Work Phone: [employer] Start: 12-03-2015 End: 12-03-2015 Nursing evaluation of patient and report Crystal Uptain CNM Work Phone: [employer] Start: 11-26-2015 End: 11-26-2015 Orders Crystal Uptain CNM Work Phone: [employer] Start: 09-14-2015 End: 09-14-2015 Office outpatient visit 15 minutes Crystal Uptain CNM Work Phone: [employer] Start: 03-06-2015 End: 03-06-2015 Office outpatient visit 15 minutes Crystal Uptain CNM Work Phone: [employer] Start: 10-05-2014 End: 10-05-2014 Office outpatient visit 15 minutes Crystal Uptain CNM Work Phone: [employer] Start: 04-14-2014 End: 04-14-2014 Patient encounter procedure Crystal Uptain CNM Work Phone: [employer] Start: 03-13-2014 End: 03-13-2014 Nursing evaluation of patient and report Crystal Uptain CNM Work Phone: [employer] Start: 10-14-2013 End: 10-14-2013 Patient encounter procedure Crystal Uptain CNM Work Phone: [employer] Start: 01-12-2013 End: 01-12-2013 Patient encounter procedure Crystal Uptain CNM Work Phone: [employer] Start: 10-08-2012 End: 10-08-2012 Patient encounter procedure Crystal Uptain CNM Work Phone: [employer] Start: 08-17-2012 End: 08-17-2012 Patient encounter procedure Crystal Uptain CNM Work Phone: [employer] Start: 08-17-2012 End: 08-17-2012 Routine general medical examination at a [facility] care facility Jame Wolfe MD Work Phone: [facility] [employer]. Start: 06-24-2012 End: 06-24-2012 Patient encounter procedure Crystal Uptain CNM Work Phone: [facility] [employer] Start: 12-25-2011 End: 12-25-2011 Patient encounter procedure Crystal Uptain CNM Work Phone: [facility] [employer]. Start: 09-22-2011 End: 09-22-2011 Patient encounter procedure Crystal Uptain CNM Work Phone: [facility] [employer]. Start: 07-23-2011 End: 07-23-2011 Patient encounter procedure Crystal Uptain CNM Work Phone: [employer] Start: 06-13-2011 End: 06-13-2011 Patient encounter procedure Crystal Uptain CNM Work Phone: [employer] Start: 02-24-2011 End: 02-24-2011 Patient encounter procedure Crystal Uptain CNM Work Phone: [employer]. Start: 01-07-2011 End: 01-07-2011 Patient encounter procedure Crystal Uptain CNM Work Phone: [employer] Start: 06-21-2010 End: 06-21-2010 Patient encounter procedure Crystal Uptain CNM Work Phone: [place] [facility] Patient encounter procedure Mary Haji MA [employer] [facility] [facility] Patient encounter procedure Louise Moon PA-C Work Phone: [employer].; [facility] Patient encounter procedure Aracelis Dueñas LPN [facility] [employer] Procedures Date Procedure Procedure Detail Performing Clinician Start: 12-06-2024 Serologic test for syphilis Louise Moon PA-C Work Phone: Start: 08-05-2024 Urine culture Louise GILES-C Work Phone: Start: 07-29-2024 [facility] Work Phone: Comment on above: Reactive: Presumptiv e evidence of antibodies to HCV. Follow CDC recommendations for supplemental testing.Non-Reactive: Antibodies to HCV were not detected; does not exclude the possibility of exposure to HCVReactive Results are presumptive evidence of antibodies to HCV. Follow CDC recommendations for supplemental testing.Order confirmation testing: HCV Quant by PCR testing - HCVPCR #[id number] Non Reactive: < 0.8 Equivocal: >/= 0.8 to < 1.0 Reactive: >/= 1.0The CDC requires that a reactive/equivocal HCV antibody result be sent out for confirmation. HCV Quant by PCR testing. Start: 07-29-2024 Rubella IgG measurement [facility] Work Phone: Comment on above: Antibody Result: Int erpretationNon-Reactive: Non- ImmuneReactive: ImmuneThe following results were obtained with the [employer] Rubella IgG assay. Results from assays of other manufacturers cannot be used interchangeably. Start: 07-29-2024 [facility] Start: 07-29-2024 [facility] Work Phone: Start: 06-03-2023 Genital Culture [facility] daina [facility] Work Phone: Start: 06-03-2023 Investigation of transfusion reaction [facility] Louise Moon MA Work Phone: Start: 02-18-2023 End: 02-18-2023 Microscopic examination of cervical Papanicolaou smear Mary Haji MA Start: 11-21-2020 End: 11-21-2020 Depression screening Louise Marcelo [facility] Work Phone: Start: 11-21-2020 End: 11-21-2020 Scr dep neg, no plan reqd Louise Fozia shaffer [facility] Work Phone: Start: 2018 End: 11-30-2020 Polysom 6/>yrs sleep 4/> addl anne marie attnd Louise Moon PA-C Work Phone: Start: 09-02-2018 End: 09-07-2018 Us abdominal real time w/image limited Louise Moon PA-C Work Phone: Start: 04-20-2018 End: 04-20-2018 Operation on gallbladder Marytay Haji MA Start: 08-04-2017 End: 08-12-2017 Us [...] End: 02-24-2017 Body mass index documented Louise D Hi lls PA-C Work Phone: Start: 02-24-2017 End: 02-24-2017 Flu imm no admin doc nestor Louise Guerrero s PA-C Work Phone: Section - 2 Marytay Haji MA Section - 2 Patrica Dueñas LPN Section - 2 Ren Wright RN Section - 2 Ren Wright RN H/O: section S/P PA-C Louise Moon PA Work Phone: Comment on above: for twin . desires TOLAC. H/O: section History of delivery, currently Louise Moon PA-C Work Phone: Comment on above: Desires H/O: section History of delivery, currently Jenny So CNM H/O: section History of delivery, currently Dr. Amee Schaffer MD H/O: section History of delivery, currently Ning Oquendo CNM H/O: section History of delivery, currently Bessie Mansfield LICENSED MARINE ENGINEER-C H/O: section History of delivery, currently Bessie Mansfield LICENSED MARINE ENGINEER-C H/O: section History of delivery, currently Bessie Mansfield LICENSED MARINE ENGINEER-C H/O: section History of delivery, currently Dr. Mallory Dover DO Plan of Treatment Date Care Activity Detail Author Start: 12-06-2024 CBC W Auto Differential panel - Blood [facility] Start: 12-06-2024 Measurement of glucose 2 hours after glucose challenge for glucose tolerance test [facility] Start: 12-06-2024 Serologic test for syphilis [facility] Start: 12-06-2024 [facility] Start: 07-29-2024 Chlamydia deoxyribonucleic acid detection [facility] Start: 07-27-2024 Patient encounter procedure Medical; EXTENDED RTN - 3 month rtn-NEEDS TO PAY COPAY! [employer] Start: 27-Jul-2024 09:20-04:00 ARAVIND Cedillo Appointment Request [employer] Start: 03-22-2024 Patient encounter procedure Medical; EXTENDED RTN - 3 MO FU [employer] Start: 22-Mar-2024 11:00-05:00 ARAVIND Cedillo Appointment Request [employer] Start: 12-22-2023 Patient encounter procedure Medical; EXTENDED RTN - 3 mo f/u [employer] Start: 22-Dec-2023 11:00-04:00 ARAVIND Cedillo Appointment Request [employer] Start: 11-24-2023 Patient encounter procedure Medical; EXTENDED RTN - 3 mo f/u [facility] Start: 24-Nov-2023 10:00-04:00 ARAVIND Cedillo Appointment Request [facility] Start: 08-24-2023 Patient encounter procedure [facility] Start: 04-15-2023 Procedure [facility] Start: 04-15-2023 Dehydroepiandrosterone sulfate (DHEA-S) [Mass/volume] in Serum or Plasma [facility] Start: 04-15-2023 Testosterone measurement [facility] Start: 03-25-2023 Liquid based cervical cytology screening [facility] 17-Hydroxyprogestero ne [Mass/volume] in Serum or Plasma [facility] CBC W Auto Different ial panel - Blood [facility] Dehydroepiandrostero ne sulfate (DHEA-S) [Mass/volume] in Serum or Plasma [facility] Erythrocyte mean cor puscular volume determination [facility] anatomy study [facility] anatomy study [facility] Hematocrit [Volume F raction] of Blood [facility] Hemoglobin [Mass/vol ume] in Blood [facility] Hemoglobin A1c/Hemog lobin.total in Blood [facility] Leukocytes [#/volume] in Blood [facility] Mean corpuscular hem oglobin concentration determination [facility] Mean corpuscular hem oglobin determination [facility] Measurement of gluco se 2 hours after glucose challenge for glucose tolerance test [facility] Neisseria gonorrhoea e rRNA [Presence] in Unspecified specimen by CUCO with probe detection [facility] Neutrophil count [facility] Neutrophil percent d ifferential count [facility] Path report.final Dx Spec [facility] PCR test for Chlamyd ia trachomatis [facility] Platelets [#/volume] in Blood [facility] Red blood cell count [facility] Red cell distributio n width determination [facility] Serologic test for syphilis [facility] T4 free measurement [facility] Testosterone Free [M ass/volume] in Serum or Plasma [facility] Testosterone measurement [facility] Thyroid stimulating hormone measurement [facility] Triiodothyronine, fr ee measurement [facility] Vitamin D, 1,25-dihy droxy measurement [facility] Immunizations Immunization Date Immunization Notes Care Provider Stephen cho 12-06-2024 tetanus toxoid, redu alejandro diphtheria toxoid, and acellular pertussis vaccine, adsorbed Louise Moon PA-C Work Phone: [facility] 03-13-2014 tetanus toxoid, redu alejandro diphtheria toxoid, and acellular pertussis vaccine, adsorbed Crystal Uptain CNM Work Phone: [facility] [employer] Comment on above: Site: Deltoid (Left) VIS Given: * TDAP, Td (08/26/2012) 12-31-2001 diphtheria, tetanus toxoids and acellular pertussis vaccine Crystal Uptain CNM Work Phone: [employer]; [employer]. 10-19-2001 measles, mumps and rubella virus vaccine Crystal Uptain CNM Work Phone: [employer] 10-19-2001 poliovirus vaccine, inactivated Crystal Uptain CNM Work Phone: [employer] 04-06-1998 diphtheria, tetanus toxoids and acellular pertussis vaccine Crystal Uptain CNM Work Phone: [employer]. 04-06-1998 haemophilus influenz ae type b vaccine, PRP-T conjugate Crystal Uptain CNM Work Phone: [employer]. 11-29-1997 measles, mumps and rubella virus vaccine Crystal Uptain CNM Work Phone: [employer] 11-29-1997 poliovirus vaccine, inactivated Crystal Uptain CNM Work Phone: [employer]. 05-12-1997 diphtheria, tetanus toxoids and acellular pertussis vaccine Crystal Uptain CNM Work Phone: [employer]; [facility] 05-12-1997 haemophilus influenz ae type b vaccine, PRP-T conjugate Crystal Uptain CNM Work Phone: [facility] 05-12-1997 hepatitis B vaccine, pediatric or pediatric/adolescent dosage Crystal Uptain CNM [facility] 02-24-1997 diphtheria, tetanus toxoids and acellular pertussis vaccine Crystal Uptain CNM Work Phone: [facility] 02-24-1997 haemophilus influenz ae type b vaccine, PRP-T conjugate Crystal Uptain CNM Work Phone: [facility] 02-24-1997 poliovirus vaccine, inactivated Crystal Uptain CNM Work Phone: [facility] 01-03-1997 diphtheria, tetanus toxoids and acellular pertussis vaccine Crystal Uptain CNM Work Phone: [facility].; [facility]. 01-03-1997 haemophilus influenz ae type b vaccine, PRP-T conjugate Crystal Uptain CNM Work Phone: [facility].; [facility] 01-03-1997 poliovirus vaccine, inactivated Crystal Uptain CNM Work Phone: [facility] 1996 hepatitis B vaccine, pediatric or pediatric/adolescent dosage Crystal Uptain CNM Work Phone: [facility] 1996 hepatitis B vaccine, pediatric or pediatric/adolescent dosage Crystal Uptain CNM Work Phone: [facility].; [facility] Payers Date Payer Category Payer Unknown [id number] 2024 Self-pay [id number] 2024 Unknown [id number] 1996 Unknown [id number] 2.16.8 40.1.812152.3.579.2.479 1996 Unknown [id number] 2.16.8 40.1.667419.3.579.2.479 1996 Unknown [id number] 2.16.8 40.1.017728.3.579.2.479 1996 Unknown [id number] 2.16.8 40.1.421380.3.579.2 1996 Unknown [id number] 2.16.8 40.1.903386.3.579.2.47 1996 Unknown [id number] 2.16.8 40.1.080876.3.579.2.479 1996 Unknown [id number] 2.16.8 40.1.935769.3.579.2.479 1996 Unknown [id number] 2.16.8 40.1.825706.3.579.2479 1996 Unknown [id number] 2.16.8 40.1.362882.3.579.2.479 1996 Unknown [id number] 2.16.8 40.1.390953.3.579.2.479 1996 Unknown [id number] 2.16.8 40.1.955297.3.579.2.479 1996 Unknown [id number] 2.16.8 40.1.880101.3.579.2.651 1996 Unknown [id number] 2.16.8 40.1.092452.3.579.2.651 1996 Unknown [id number] 2.16.8 40.1.754572.3.579.2.651 Medicaid [id number] Unknown [id number] Unknown [facility] [id number] Unknown [facility] [id number] Unknown Unknown [id number] 2.16.8 40.1.245940.3.579.2.462 Unknown [id number] 2.16.8 40.1.337139.3.579.2.462 Unknown [id number] 2.16.8 40.1.465449.3.579.2.462 Unknown [id number] 2.16.8 40.1.013962.3.579.2.462 Unknown [id number] 2.16.8 40.1.501993.3.579.2.462 Unknown [id number] 2.16.8 40.1.020120.3.579.2.462 Unknown [id number] 2.16.8 40.1.302316.3.579.2.462 Unknown [id number] 2.16.8 40.1.667392.3.579.2.462 Unknown [id number] 2.16.8 40.1.102578.3.579.2.462 Unknown [id number] 2.16.8 40.1.393504.3.579.2.462 Unknown [id number] 2.16.8 40.1.490661.3.579.2.462 Unknown [id number] 2.16.8 40.1.545659.3.579.2.462 Unknown [id number] 2.16.8 40.1.417254.3.579.2.462 Unknown [id number] 2.16.8 40.1.473871.3.579.2.462 Unknown [id number] 2.16.8 40.1.440623.3.579.2.462 Social History Date Type Detail Facility Start: 03-25-2023 End: 06-03-2023 Tobacco smoking status NHIS Unknown if ever smoked [facility] Start: 05-10-2018 None [facility] Start: 1995 Sex Assigned At Female W [facility] Child(bobby) Child(bobby) [facility] [employer]; [employer] Tobacco Use: Tobacco Use: ; N ever smoker. [employer]; [employer] Tobacco/Smoke Exposure: Tobacco/ Smoke Exposure: ; Family members smoke indoors. [employer]; [employer] Family members s moke indoors [employer]; [employer] Work Phone: Start: 07-08-2024 End: 08-04-2024 Never smoked tobacco [facility] Start: 08-01-2024 End: 08-09-2024 Sex Female (finding) [facility] Clinical Notes 03-25-2023 to 09-19-2024 Note Date & Type Note Facility 09-19-2024 Progress note [facility] 09-19-2024 Progress note Note Date/Time September 19, 2024 2:39pm [facility] [address], [address] [place] [address] OFFICE VISIT Date of Service: 09/19/24 MR#: [id number] Acct: [id number] Name: PATTY ALVAREZ Rep #: [id number] : 1995 Provider: ARAVIND Oquendo Age/Sex: 28/F Location: [facility] [place] [facility] Status: Signed Intake Vital Signs 07/29/24 14:29 08/24/24 14:44 09/19/24 14:11 Height 5 ft 3 in 5 ft 3 in 5 ft 3 in Weight: 273 lb BMI 48.3 BP 122/78 H Intake Visit Reasons: 17 wk ob * Chief Complaint: 17wk OB Director Of Community Services Required: No Is patient in pain?: No [...] 2 current occupational status: employed 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 Date Name GA/Weeks Outcome Route Bth Weight Infant Gen Labor Lgth Anesthesia Del Maxatn Provider FOB 05/10/18 Andreina 38 live - full term 6lb 1oz Female [facility] Amee Schaffer 05/10/18 Stefania 38 live - full term 6lbs 5oz Female [facility] Amee Valencialars 10/15/20 10 spontaneous Delivery Date: 05/10/18 Last Updated by: Laine Harden Twins; Breech/Breech Delivery Date: 05/10/18 Last Updated by: Laine Harden Twins; Breech/Breech Delivery Date: 10/15/20 Last Updated by: Hannah Mercado RN D&C - WC HPI 17 wk ob * Details: PATTY [...] yet. US set up for 10/10 with [facility]. has rash on upper thighs-benadryl cream [...] fallen in the past year?: No 09/19/24 1306 <Electronically signed by Ning lim CNM> Date _ Ning Oquendo CNM Cosigner Signature: Date (if applicable) CC: ~ [facility] Work Phone: 1(196) 333-794705-07-2025 Evaluation note* Diagnosis Onset Date Resolution Status [...] 2024 3:32pm Anxiety and depression acute Ju 2024 1:32pm History of delivery , currently [...] December 06, 2024 3:31pm acute December 06 3:31pm PUPP (pruritic urticarial papules and plaques of ) acute December 06 3:31pm Supervision of high-risk acute December 06 3:31pm [facility] Work Phone: 1(955) 647-682305-07-2025 Evaluation note* Diagnosis Onset Date Resolution Status [...] 2024 3:32pm Anxiety and depression acute Ju 2024 1:32pm History of delivery , currently acute November 15 1:32pm History of miscarriage, currently acute November 15 1:32pm Obesity affecting acute November 15, 2024 1:32pm acute November 15 1:32pm PUPP (pruritic urticarial papules and plaques of ) acute November 15, 2024 1:32pm Supervision of high-risk acute November 15, 2024 1:32pm Anxiety and depression acute 2024 3:31pm History of delivery , currently acute December 06, 2024 3:31pm History of miscarriage, currently acute December 06, 2024 3:31pm Obesity affecting acute December 06, 2024 3:31pm acute December 06 3:31pm PUPP (pruritic urticarial papules and plaques of ) acute December 06 3:31pm Supervision of high-risk acute December 06 3:31pm Abnormal glucose affecting acute December 21 10:15am Anxiety and depression acute 2024 10:15am History of delivery , currently acute December 10:15am History of miscarriage, currently acute December 10:15am Obesity affecting acute December 21, 2024 10:15am acute December 21, 2024 10:15am PUPP (pruritic urticarial papules and plaques of ) acute December 21 10:15am Supervision of high-risk acute December 21 10:15am [facility] Work Phone: 1(513) 535-788104-03-2025 Evaluation note* Diagnosis Onset Date Resolution Status [...] of high-risk acute October 17, 2024 3:32pm [facility] Work Phone: 1(352) 488-732004-03-2025 Evaluation note* Diagnosis Onset Date Resolution Status [...] of high-risk acute November 15, 2024 1:32pm [facility] Work Phone: 1(277) 679-915002-19-2025 Evaluation note* Diagnosis Onset Date Resolution Status Admit Date Encounter for routine gynecological examination noneactive Februa 2024 8:50am Spotting in early acute July [...] of high-risk acute July 29, 2024 2:23pm [facility] Work Phone: 1(220) 623-424302-19-2025 Evaluation note* Diagnosis Onset Date Resolution Status Admit Date Encounter for routine gynecological examination noneactive Febr2024 8:50am Spotting in early resolved July 21, [...] high-risk acute September 19, 2024 2 :08pm [facility] Work Phone: [phone] NotePap Smear Specimen AdequacyDecember 2022 1:51pmComment.Satisfactory for evaluation. Endocervical and/or squamous metaplasticcells (endocervical component)are present.[facility] A#[id number] City HospitalComment on above:Satisfactory for evaluation. Endocervical and/or squamous metaplasticcells (endocervical component)are present.03-25-2023 NotePap Smear Specimen AdequacyDecember 2022 1:51pmComment.Satisfactory for evaluation. Endocervical and/or squamous metaplasticcells (endocervical component)are present.[facility] A#[id number] City HospitalComment on above:Satisfactory for evaluation. Endocervical and/or squamous metaplasticcells (endocervical component)are present.Evaluation note* Diagnosis Onset Date Resolution Status Infertility acute Irregular menses acute Screen for STD (sexually transmitted disease) acute Morbid obesity chronic Encounter for routine gynecological examination noneactive [facility] Work Phone: Evaluation note* Diagnosis Onset Date Resolution Status Infertility acute Irregular menses acute Morbid obesity chronic Encounter for routine gynecological examination noneactive Possible exposure to STD non eactive Oral contraception initial prescription noneactive Monilial vaginitis noneactiv e [facility] Work Phone: Reason for referral (narrative)No reason for referral information availableWTriHealth [facility] Work Phone: Summary Purpose Family History No Family History Records Found Relationship Condition Age at Onset Recorded Date/T [...] Unknown sister Malignant neoplasm Unknown Advance Directives No Advanced Directives Records Found Advance Directive Response Recorded Date/ Time Advance Directives No November 14 10:50am Living Will No December 11 1 12:30pm Power of Nozzle Cement Sprayer Helper No December 11 021 12:30pm Advance Directive Response Recorded Date/ Time Living Will No December 11 1 1:30pm Do you have a Healthcare Power of Nozzle Cement Sprayer Helper? No December 11, 2020 1:30pm Advance Directives No July 01 025 1:27pm Advance Directive Response Recorded Date/ Time Living Will No December 11 1 1:30pm Do you have a Healthcare Power of Nozzle Cement Sprayer Helper? 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..] 2024 2:23pm Chief Complaint Admit Date 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) June 08, 2024 8:50am Amb Documentation July 08, 2024 9:0 4am spotting in early July 21, 025 9:49am New OB, LMP 2/2, LITA 02/26July 29 2:23pm rpt clean catch/culture per KW July 182024 2:22pm Chief Complaint Admit Date 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) June 08, 2024 8:50am Amb Documentation July 08, 2024 9:0 4am spotting in early July 21, 025 9:49am New OB, LMP 2/2, LITA 02/26July 29 2:23pm rpt clean catch/culture per KW July 182024 2:22pm 13wk OB * August 24, 2024 2:41pm 17 wk ob * September 19, 2024 2:08p m Reason for Visit Admit Date Encounter for routine gynecological exam ination June 08, 2024 8:50am Spotting in early July 21, 025 9:49am Anxiety and depression July 29, [...] 17, 2024 3:32pm Obesity affecting October 17 3:32pm October 17, 2024 3:32 pm Supervision of high-risk October 17, 2024 3:32pm Chief Complaint Admit Date spotting in early July 21 025 9:49am New OB, LMP 2/2, LITA [...] October 17, 2024 3:32pm Obesity affecting October 17, 2 025 3:32pm October 17, 2024 3:32 pm Supervision of high-risk October 17, 2024 3:32pm Anxiety and depression November 15, 2024 1 :32pm History of delivery, currently November 15, 2024 1:32pm History of miscarriage, currently pregna nt November 15, 2024 1:32pm Obesity affecting November 15, 2 025 1:32pm November 15, 2024 1:32 pm [...] Supervision of high-risk Augus t 2024 3:31pm Chief Complaint Admit Date 13wk OB * August 24, 2024 2:41pm 17 wk ob * September 19, 2024 2:08p m 21 wk ob * October 17, 2024 3:32 pm 25wk ob * November 15, 2024 1:32 pm 28wk ob/glucose December 06, 2024 3: 31pm Encounter for screening for diabetes deshaun litus December 13, 2024 6:49am Chief Complaint Admit Date 13wk OB * August 24, 2024 2:41pm 17 wk ob * September 19, 2024 2:08p m 21 wk ob * October 17, 2024 3:32 pm 25wk ob * November 15, 2024 1:32 pm 28wk ob/glucose December 06, 2024 3: 31pm Encounter for screening for diabetes deshaun litus December 13, 2024 6:49am 30 wk ob * December 21, 2024 10:15am Reason for Visit Admit Date Anxiety and [...] November 15, 2024 1:32pm Obesity affecting November 15, 2 025 1:32pm November 15, 2024 1:32 pm PUPP (pruritic urticarial pa pules and plaques of ) November 15, 2024 1:32pm Supervision of high-risk November 15, 2024 1:32pm Anxiety and depression December 06, 2024 3:31pm History of delivery, currently December 06, 2024 3:31pm History of miscarriage, currently pregna nt December 06, 2024 3:31pm Obesity affecting December 06, 2024 3:31pm December 06, 2024 3: 31pm PUPP (pruritic urticarial pa pules and plaques of ) December 06, 2024 3:31pm Supervision of high-risk Augus t 2024 3:31pm Abnormal glucose affecting Sep 2024 10:15am Anxiety and depression December 21 10:15am History of delivery, currently December 21, 2024 10:15am History of miscarriage, currently pregna nt December 21, 2024 10:15am Obesity affecting December 10:15am December 21, 2024 10:15am PUPP (pruritic urticarial pa pules and plaques of ) December 21, 2024 10:15am Supervision of high-risk Septe 2024 10:15am Additional Source Comments INFORMATION SOURCE (unrecogn ized section and content) DATE CREATED AUTHOR 06/03/2018 [facility] DATE CREATED AUTHOR AUTHOR'S ORGANIZ ATION 10/20/2018 [facility] ([place]) DATE CREATED AUTHOR AUTHOR'S ORGANIZ ATION 03/26/2021 [facility] DATE CREATED AUTHOR AUTHOR'S ORGANIZ ATION 10/28/2024 [facility] DATE CREATED AUTHOR AUTHOR'S ORGANIZ ATION 12/21/2024 [facility] Care Teams (unrecognized sec tion and content) [...] Louise GILES PA-C Primary Care Provider Active Jenny So CNM Attending Provider, Referring Pr ovider Active Team Status: Inactive Member Role Status Dates Louise Benson PA, PA-C Primary Care Provider, Referri ng Provider Active Bessie Mansfield LICENSED MARINE ENGINEER, LICENSED MARINE ENGINEER-C Attending Provider Active Team Status: Inactive Member Role Status Dates Louise Moon PA, PA-C Primary Care Provider Active Bessie Mansfield LICENSED MARINE ENGINEER, LICENSED MARINE ENGINEER-C Attending Provider, Referring Provider Active Team Status: Inactive Member Role Status Dates Louise Moon PA, PA-C Primary Care Provider Active Start: June 08, 2024 End: June 08, 2024 Louise Moon PA, PA-C Referring Provider [...] Role/Relationship Status Dates Louise Moon PA, PA-C Family Provider Active Louise Benson PA, PA-C Primary Care Provider Active Team [...] 05, 2024 End: August 05, 2024 Louise Sarai PA, PA-C Referring Provider Active Start: August [...] Team Status: Inactive Member Role/Relationship Status Dates Louisesaniya Moon PA, PA-C Primary Care Provider Active Start: September 19, 2024 End: September 19, 2024 Louise Benson PA, PA-C Referring Provider Active Start: September [...] 2024 End: October 17, 2024 Bessie Mansfield LICENSED MARINE ENGINEER, LICENSED MARINE ENGINEER-C Attending Provider Active Start: October 17, 2024 [...] 2024 End: October 17, 2024 Bessie Mansfield LICENSED MARINE ENGINEER, LICENSED MARINE ENGINEER-C Attending Provider Active Start: October 17, 2024 End: October 17, 2024 Team Status: Inactive Member Role/Relationship Status Dates Louise Moon PA, PA-C Primary Care Provider Active Start: November 15, 2024 End: November 15, 2024 Louise Moon PA, PA-C Referring Provider Active Start: November 15, 2024 End: November 15, 2024 Bessie Mansfield LICENSED MARINE ENGINEER, LICENSED MARINE ENGINEER-C Attending Provider Active Start: November 15, 2024 [...] October 17, 2024 End: October 17, 2024 Louisesaniya Moon PA, PA-C Referring Provider Active Start: October 17, 2024 End: October 17, 2024 Bessie Mansfield LICENSED MARINE ENGINEER, LICENSED MARINE ENGINEER-C Attending Provider Active Start: October 17, 2024 End: October 17, 2024 Team Status: Inactive Member Role/Relationship Status Dates Louise Moon PA, PA-C Primary Care Provider Active Start: November 15, 2024 End: November 15, 2024 Louisesaniya Moon PA, PA-C Referring Provider Active Start: November 15, 2024 End: November 15, 2024 Bessie Mansfield LICENSED MARINE ENGINEER, LICENSED MARINE ENGINEER-C Attending Provider Active Start: November 15, 2024 End: November 15, 2024 Team Status: Active Member Role/Relationship Status Dates Louise Moon PA, PA-C Primary Care Provider Active Start: December 06, 2024 Bessie Mansfield LICENSED MARINE ENGINEER, LICENSED MARINE ENGINEER-C Attending Provider Active Start: December 06, 2024 Bessie Mansfield LICENSED MARINE ENGINEER, LICENSED MARINE ENGINEER-C Referring Provider Active Start: December 06, 2024 Team Status: Inactive Member Role/Relationship Status Dates Louise Moon PA, PA-C Primary Care Provider Active Start: December 06, 2024 End: December 06, 2024 Louisesaniya Moon PA, PA-C Referring Provider Active Start: December 06, 2024 End: December 06, 2024 Bessie Mansfield LICENSED MARINE ENGINEER, LICENSED MARINE ENGINEER-C Attending Provider Active Start: December 06, 2024 End: December 06, 2024 Team Status: Inactive Member Role/Relationship Status Dates Louise Moon PA, PA-C Primary Care Provider Active Start: December 06, 2024 End: December 06, 2024 Bessie Mansfield LICENSED MARINE ENGINEER, LICENSED MARINE ENGINEER-C Attending Provider Active Start: December 06, 2024 End: December 06, 2024 Bessie Mansfield LICENSED MARINE ENGINEER, LICENSED MARINE ENGINEER-C Referring Provider Active Start: December 06, 2024 End: December 06, 2024 Team Status: Inactive Member Role/Relationship Status Dates Louise GILES PA-C Primary Care Provider Active Start: December 13, 2024 End: December 13, 2024 Bessie Mansfield LICENSED MARINE ENGINEER, LICENSED MARINE ENGINEER-C Attending Provider Active Start: December 13, 2024 End: December 13, 2024 Bessie Mansfield LICENSED MARINE ENGINEER, LICENSED MARINE ENGINEER-C Referring Provider Active Start: December 13, 2024 End: December 13, 2024 Team Status: Inactive Member Role/Relationship Status Dates Louise GILES, PA-C Primary Care Provider Active Start: December 21, 2024 End: December 21, 2024 Louise GILES, PA-C Referring Provider Active Start: December 21, 2024 End: December 21, 2024 Dr. Mallory Dover , DO Attending Provider Activ e Start: December 21, 2024 End: December 21, 2024 Goals (unrecognized section and content) Goals [...] BE BASED ON THE PRIMARY CLINICAL RECORDS. [facility]. provides no warranty or guarantee of the accuracy or completeness of information in this document.
[2025-01-01 09:13] VITALS: BP 133/69; PULSE 97; RESP 18; TEMP 36.7
[2025-01-01 09:37] VITALS: BMI 50.3
--- NOTE | 2025-01-01 12:34 | OB.TRI.PN ---
Progress Notes Date of Service: 01/01/25 Progress Note: Patient presents for triage evaluation secondary to decresaed movement FHT: 130 Moderate variability reactive no decelerations category I tracing [place]: no regular Contractions Assessment and plan: decresaed movement Reactive NST, reassuring maternal and status patient discharged to home to follow-up as scheudled. See problem list details for additional plan information. Charges/Coding Procedures Urinary/Genital 52xxx-59xxx: 65295-20 non-stress test Interp
== END 2025-01-01 10:30 | disposition home or self-care (01) ==
LOC: WPOUT 09:01 → WP 09:02
PROVIDERS: PCP Family Medicine; Visit Provider Obstetrics & Gynecology
DX: O36.8130 Decreased fetal movements, third trimester, not applicable or unspecified (principal); Z3A.31 31 weeks gestation of pregnancy
CPT/HCPCS: 59025; 59050; 99221; G0378

== ENCOUNTER → 2025-01-30 | Outpatient (CLI) | payer OTHER, MEDICAID, SELFPAY | END | disposition home or self-care (01) | LOC: LABSPEC 16:24 | PROVIDERS: PCP Family Medicine; Visit Provider Obstetrics & Gynecology | DX: O09.93 Supervision of high risk pregnancy, unspecified, third trimester (principal); Z3A.00 Weeks of gestation of pregnancy not specified | CPT/HCPCS: 87081 ==

== ENCOUNTER → 2025-01-31 | Outpatient (CLI) | payer OTHER, MEDICAID, SELFPAY ==
--- NOTE | 2025-01-31 12:01 | US_ITS ---
PROCEDURE: OB LIMITED WITH BIOMETRICS 01/31/2025 REASON FOR EXAM: 36 WK GROWTH SCAN Limited examination due to patient's body habitus. TECHNIQUE: Procedure Code: USOBGROWTH Modality: US Procedure: OB LIMITED WITH BIOMETRICS COMPARISON: None FINDINGS Number: 1 Position: Vertex Placental Position: Posterior and not low-lying. Placental Abnormalities: No evidence of previa. There is a 4.4 cm 3.6 cm 3.1 cm cystic structure arising from the placental edge anteriorly. DIMENSIONS: Biparietal Diameter: 9.5 cm: 38 weeks and 5 days: 98 percentile/ Head Circumference: 34.4 cm: 39 weeks and 6 days: 93rd percentile/ Abdominal Circumference: 35.9 cm: 39 weeks and 6 days: 99 percentile/ Femur Length: 7.1 cm: 36 weeks and 2 days: 46 percentile / ESTIMATED WEIGHT: 2629 g plus/-544 g ESTIMATED WEIGHT PERCENTILE (24+ weeks): 97.6 ESTIMATED GESTATIONAL AGE: Baseline: 36 weeks and 2 days By Ultrasound: 38 weeks and 6 days ESTIMATED DATE OF DELIVERY: Baseline: February 26, 2025 By Ultrasound: February 08, 2025 BIOPHYSICAL ASSESSMENT: Amniotic Fluid Volume: 5.6 cm Amniotic Fluid Index: 7.8 (8-24 cm normal range) Cardiac Motion: 137 beats per minute (average) Trunk and Limb Motion: Present. MATERNAL ANATOMY: Adnexa: Neither maternal ovary is successfully identified. US/OB Limited With Biometrics IMPRESSION: Single live intrauterine gestation with mean gestational age of 38 weeks and 6 days. Reading Location: [facility]
== END | disposition home or self-care (01) ==
LOC: US 11:56
PROVIDERS: PCP Family Medicine; Referring Provider Advanced Practice Midwife; Visit Provider Advanced Practice Midwife
DX: Z34.93 Encounter for supervision of normal pregnancy, unspecified, third trimester (principal); Z3A.32 32 weeks gestation of pregnancy
CPT/HCPCS: 76816

== ENCOUNTER → 2025-02-08 | Outpatient (CLI) | payer OTHER, MEDICAID, SELFPAY ==
--- OUTSIDE RECORDS SUMMARY | 2025-02-08 06:50 | XMS RPT_ITS | CCD ---
Author Organization [facility] Care Team Providers Care El Teacher Name Role Phone SHARAN JEFFREY Attending Unavailable [...] Attending Unavailable AMEE SCHAFFER Referring Unavailabl e SARAI, LOUISE D Primary Care Unavailable SHARAN JEFFREY [...] Hooper Referring Provider ARAVIND So Attending Provider Colleen Cedillo CNM Unavailable [place] emergency technician, . . Unavailable General Surgery Provider Unavailable Unavail able Bandar PUENTES, Kristin Swan Unavailable Aiden PUENTES, Jame Kaur Unavailable Isrrael PUENTES, Mervin Gonzalez Unavailable Sarai GILES-C, Louise Marcelo Unavailable Vess CHEMICAL DEPENDENCY PROFESSIONAL, Neteresafranklyn L Unavailable Unavailable Arnulfo CHEMICAL DEPENDENCY PROFESSIONAL, Leny E Unavailable Unavailable Félix PEPS, Brooke Thomas Unavailable Unavailable Nathan CHEMICAL DEPENDENCY PROFESSIONAL, Zeinab Che Unavailable Unavailab nena Siddiqui CHEMICAL DEPENDENCY PROFESSIONAL, Mallory Unavailable Unavailabl franklyn Be PA-C, Porsha Saldivar Unavailable Alexsandra CHEMICAL DEPENDENCY PROFESSIONAL, Yolande K Unavailable Unamiya Tobar SET UP INSPECTOR-C, Skinny Richards Unavailable Franko CHEMICAL DEPENDENCY PROFESSIONAL, Veronica Unavailable Unavailable Adithya SCHMIDT, Mary Unavailable Unavailable Unavailable Unavailable Unavailable Unavailable Shyla SET UP INSPECTOR, SET UP INSPECTOR-C Bessie Attending Provider Spenser TAMEZN, Aracelis Unavailable Unavailable Adriana EPPS, Ren Unavailable Unavailable Sarai CHANEYCLouise Primary Care Provider [phone] Louise Moon PA-C Referring Provider Ross CORTEZ-CLeeann Attending Provider Hannah Mercado RN Attending Provider UnavailNing Jj CNM Attending Provider Jenny So CNM Attending Provider Jenny So CNM Referring Provider Ning Oquendo CNM Referring Provider Manuel PUENTES, Dr. Lubin Attending Provider Louise Moon PA-C Primary Care Provider Sarai CHANEYCLouise Referring Provider Shyla CORTEZ-CBessie Attending Provider AMEE SCHAFFER MD Admitting UnavailAMEE Best MD Primary Care Unavailab AMEE Bravo MD Attending Unavailab [facility], LOUISE PAC Consulting Unavailable PROVIDER, UNKNOWN Consulting Unavailable JAZMYN HO DO Admitting Unavailable JAZMYN HO DO Primary Care Unavailable JAZMYN HO DO Attending Unavailable [place], LOUISE PAC Consulting Unavailable PROVIDER, UNKNOWN Consulting Unavailable [place], LOUISE Admitting Unavailable [place], LOUISE Primary Care Unavailable [place], LOUISE Attending Unavailable [place], LOUISE PAC Consulting Unavailable PROVIDER, UNKNOWN Consulting Unavailable [place] PA-C, Louise Primary Care Provider [place] PA-C, Louise Primary Care Provider [place] PA-C, Louise Referring Provider Ning Oquendo CNM Attending Provider [phone] Shyla SET UP INSPECTOR-C, Bessie Referring Provider [phone] Mallory Dover DO Attending Provider [place] PA-C, Louise Primary Care Provider [place] PA-C, Louise Referring Provider Dr. Amee Schaffer MD Attending Provider [place] PA-C, Louise Primary Care Physician Ning Oquendo CNM Attending Physician [phone] Shyla SET UP INSPECTOR-CBessie Attending Physician [phone] Mallory Dover DO Attending Physician Dr. Amee Schaffer MD Attending Physician Dr. Amee Schaffer MD Nurse Practitioner [place] PA-C, Louise Primary Care Physician [place] PA-C, Louise Referring Provider Ning Oquendo CNM Attending Physician [phone] Amee Schaffer Attending Unavailable [place] PA, Louise Referring Unavailable [place] PA, Louise Primary Care Unavailable Ning Oquendo Attending Unavailable [place] PA, Louise Primary Care Unavailable [place] PA, Louise Referring Unavailable Mallory Dover Attending Unavailabl e [place] PA, Louise Referring Unavailable [place] PA, Louise Primary Care Unavailable Leeann Hawkins Attending Unavailable [place] PA, Louise Referring Unavailable [place] PA, Louise Primary Care Unavailable Amee Schaffer Attending Unavailable [place] PA, Louise Primary Care Unavailable Ning Oquendo Attending Unavailable [place] PA, Louise Primary Care Unavailable Ning Oquendo Referring Unavailable [place] PA, Louise Primary Care Unavailable Ning Oquendo Referring Unavailable Ning Oquendo Attending Unavailable Amee Schaffer Attending Unavailable Amee Schaffer Consulting Unavailable [place] PA, Louise Primary Care Unavailable Hannah Mercado Attending Unavailable [place] PA, Louise Primary Care Unavailable [place] PA, Louise Referring Unavailable Ning Oquendo Attending Unavailable [place] PA, Louise Primary Care Unavailable Jenny So Attending Unavailable [place] PA, Louise Referring Unavailable [place] PA, Louise Primary Care Unavailable Amee Schaffer Attending Unavailable [place] PA, Louise Primary Care Unavailable [place] PA, Louise Referring Unavailable Hoffman SET UP INSPECTORBessie Attending Unavailable [place] PA, Louise Referring Unavailable [place] PA, Louise Primary Care Unavailable Shyla SET UP INSPECTORBessie Attending Unavailable [place] PA, Louise Referring Unavailable [place] PA, Louise Primary Care Unavailable Shyla SET UP INSPECTORBessie Attending Unavailable [place] PA, Louise Referring Unavailable [place] PA, Louise Primary Care Unavailable Mallory Dover Attending Unavailabl e [place] PA, Louise Primary Care Unavailable Jenny So Referring Unavailable Jenny So Attending Unavailable [place] PA, Louise Primary Care Unavailable Ning Oquendo Attending Unavailable [place] PA, Louise Primary Care Unavailable Ning Oquendo Referring Unavailable Hoffman SET UP INSPECTORBessie Referring Unavailable Shyla SET UP INSPECTORBessie Attending Unavailable [place] PA, Louise Primary Care Unavailable Mallory Dover Attending Unavailabl e [place] PA, Louise Primary Care Unavailable [place] PA, Louise Referring Unavailable Shyla SET UP INSPECTOR, Bessie Referring Unavailable Shyla SET UP INSPECTORBessie Attending Unavailable [place] PA, Louise Primary Care Unavailable Amee Schaffer Admitting Unavailable Amee Schaffer Attending Unavailable [place] PA, Louise Primary Care Unavailable Ning Oquendo Attending Unavailable [place] PA, Louise Primary Care Unavailable [place] PA, Louise Referring Unavailable [place] Louise GILES Referring Unavailable Ning Oquendo Attending Unavailable [place] Louise GILES Primary Care Unavailable Amee Schaffer Attending Unavailable [place] Louise GILES Primary Care Unavailable [place] Louise GILES Referring Unavailable [place] Louise GILES Referring Unavailable [place] Louise GILES Primary Care Unavailable Ning Oquendo Attending Unavailable Allergies Allergy Classification Reported Allergen(s) Allergy Type Date of Onset Reaction(s) Facility (18 sources) Penicillins; Translations: [PENICILLINS] Propensity to adverse reactions to drug (disorder) 8 Rash [facility] (18 sources) Penicillin V Drug Allergy [facility], [facility]. Medications Current Medications Medication Drug Class(es) Dates Sig (Normalized) Sig (Original) docosahexaenoic acid 200 mg oral capsule (13 sources) Start: 07-08-2024 Docosahexaenoic Acid ( Dha) 200 mg capsule Active mg PO July 08, 2024 12:00am Complies with drug therapy ondansetron 4 mg disintegrating oral tablet (11 sources) Serotonin-3 Receptor Antagonist Start: 09-07-2024 take 1 tablet by mouth every six hours as needed for nausea and vomiting Ondansetron 4 mg tablet,disintegratin g Active 4 mg PO EVERY 6 HOURS as needed for nausea and vomiting 30 4 September 07, 2024 12:00am Nausea and vomiting during Vomiting of , unspecified Complies with drug therapy Vit,Jonathan 04-Ppcx-Fxkle (Prenatabs Fa) 29-1 mg tablet (4 sources) Start: 01-01-2025 Vit,Jonathan 53-Vdkm-Yeyeh (Prenatabs Fa) 29-1 mg tablet Active 1 {tbl} PO Q24H January 01, 2025 12:00am Complies with drug therapy Start: 01-01-2025 Vit,C al 38-Qope-Krmdd (Prenatabs Fa) 29-1 mg tablet Active 1 {tbl} PO Q24H January 01, 2025 12:00am semaglutide (weight loss) 0.25 mg/0.5 mL subcutaneous pen injector (16 sources) Start: 03-14-2024 semaglutide (w eight loss) 0.25 mg/0.5 mL subcutaneous pen injector ; 40 Unit weekly for 0 days Quantity: 2.5 {Milliliter} Refills: 0 Ordered: 14-Mar-2024 UpARAVIND chaidez Crystal K Start: 14-Mar-2024 Comments: Substitute: Semaglutide/Cyanocobalamin 5mg/0.5mg per mL- send a 2.5mL vial Start: 01-27-2024 inject 20 [IU] by subcutaneous injection every week semaglutide (weight loss) 0.25 mg/0.5 mL subcutaneous pen injector ; 20 Unit weekly for 0 days Quantity: 2.5 {Milliliter} Refills: 0 Ordered: 27-Jan-2024 ARAVIND Cedillo Crystal K Start: 27-Jan-2024 Comments: Substitute: Semaglutide/Cyanocobalamin 5mg/0.5mg per mL- send a 2.5mL vial Start: 09-09-2023 inject 0.75 mg by subcutaneous injection every week semaglutide (weight loss) 0.25 mg/0.5 mL subcutaneous pen injector ; 0.75 Milligram weekly for 0 days Quantity: 1 {Milliliter} Refills: 0 Ordered: 09-Sep-2023 ARAVIND Cedillo Crystal K Start: 09-Sep-2023 Comments: Substitute: Semaglutide/Cyanocobalamin 5mg/0.5mg per [...] Quantity: 2.5 {Milliliter} Refills: 0 Ordered: 11-Aug-2023 UpKE chaidezJt Crystal K Start: 11-Aug-2023 Comments: Substitute: Semaglutide/Cyanocobalamin 1mg/0.5mg [...] / oxyCODONE hydrochloride 5 mg oral tablet (16 sources) Opioid Agonist Start: 05-12-2018 End: 05-19-2018 [...] 2 TABLET PO EVERY 4 HOURS NEEDED 28 7 May 12, 2018 12:00am May 19, 2018 12:07am [...] Status: Inactive citalopram 20 mg oral tablet (16 sources) Serotonin Reuptake Inhibitor Start: 12-31-2017 End: 01-20-2018 take 1 tablet by mouth once daily Citalopram (Celexa) 20 mg tablet Discontinued 20 mg PO DAILY 30 December 31, 2017 12:00am January 20, 2018 9:12am [...] mg (4) tablet Discontinued 0 .ROUTE .COMPLEX June 03, 2023 3:59pm June 08, 2024 [...] DAY Start: 12-11-2020 End: 12-27-2021 Norethindrone-E.Estradiol-Ir on (Junel Fe 24) 1 mg-20 mcg (24)/75 mg (4) tablet Discontinued 1 {tbl} PO daily 16 04December 11, 2020 12:00am December 27, 2021 9:29am Start: 12-11-2020 End: 12-27-2021 Norethindrone-E.Estradiol-Ir on () 1 mg-20 mcg (24)/75 mg (4) tablet Discontinued 1 {tbl} PO daily December 11, 2020 12:00am December 27, 2021 9:29am Start: 12-11-2020 End: 12-27-2021 take 1 tablet by mouth once daily Norethindrone-E.Estradiol-Iron () 1 mg-20 mcg (24)/75 mg (4) tablet [...] Status: Inactive ibuprofen 800 mg oral tablet (16 sources) Nonsteroidal Anti-inflammatory Drug Start: 06-12-2016 End: [...] Comment on above: Medication taken as needed. methylPREDNISolone 4 mg oral tablet (9 sources) Corticosteroid Start: 11-15-2024 End: 01-25-2025 take 1 tablet by mouth once Methylprednisolone (Medrol (Melissa)) 4 mg tablets,dose pack Discontinued 0 PO per package directions 21 November 15, 2024 12:00am January 25, 2025 10:07am PO PER PKG DIR metoclopramide 10 mg oral tablet (16 sources) Dopamine-2 Receptor Antagonist Start: 10-26-2017 End: [...] Status: Inactive naproxen 500 mg oral tablet (16 sources) Nonsteroidal Anti-inflammatory Drug Start: 05-12-2018 End: 05-24-2018 take 1 tablet by mouth twice daily as needed for pain Naproxen 500 MG tablet Discontinued 500 mg PO TWICE DAILY NEEDED as needed for Pain 60 1 May 12, 2018 1:00am May 24, 2018 4:14pm nitrofurantoin, macrocrystals 25 mg / nitrofurantoin, monohydrate 75 mg oral capsule (16 sources) Nitrofuran Antibacterial Start: 04-28-2018 End: 05-05-2018 take 1 capsule by mouth twice daily at mealtime Nitrofurantoin Monohyd/M-Cryst (Macrobid) 100 mg capsule Discontinued 100 mg PO TWICE A DAY 14 7 0 April 28, 2018 1:00am May 04, 2018 1:00am May 05, 2018 1:07am must administer with a meal/food Prenat.Vits,Jonathan,Min-I susan-Folic ( Vitamin) tablet (16 sources) Start: 10-07-2017 End: 05-24-2018 Prenat.Vits,Jonathan,Min- Iron-Folic ( Vitamin) tablet Discontinued 1 {tbl} PO daily October 07, 2017 12:00am May 24, 2018 4:14pm Start: 10-07-2017 End: 05-24-2018 Prenat.Vits,Jonathan,Wjo-Eqsv-Xkq ic ( Vitamin) tablet Discontinued 1 {tbl} PO daily October 07, 2017 12:00am May 24, 2018 4:14pm Start: 10-07-2017 End: 05-24-2018 take 1 tablet by mouth once daily Prenat.Vits,Jonathan,Nqk-Vkik-Srmnw ( Vitamin) tablet Discontinued 1 TABLET PO [...] 4:11pm depression spironolactone 50 mg oral tablet (16 sources) Aldosterone Antagonist Start: 03-27-2022 End: 06-03-2023 [...] Norepinephrine Reuptake Inhibitor Start: 01-14-20 End: 01-28-20 Venlafaxine HCl ER 37.5 MG Oral Capsule [...] Quantity: 30 {Capsule} Refills: 5 Ordered: 13-Jan-2019 ERKI Moon Start: 10-Dec-2018 End: 13-Jan-2019 Status: Inactive [...] Quantity: 1 {Milliliter} Refills: 0 Ordered: 13-May-2023 Mamadou ARAVIND Crystal K Start: 13-May-2023 Comments: sub: 1mg/mL Semaglutide vial Start: 04-27-2023 Wegovy 0.25 mg /0.5 mL subcutaneous pen injector ; 0.25 Milligram every week;administer weeks 1 through 4 of therapy for 0 days Quantity: 2 {Milliliter} Refills: 0 Ordered: 27-Apr-2023 Mamadou ARAVIND Crystal K Start: 27-Apr-2023 Comment on above: sub: 1mg/mL [...] depressive disorder; Translations: [Anxiety disorder, unspecified] Onset: 01-06-2025 10-18-2020 Chronic Comment on above: IN THE PAST stable. no meds curr ently Bacterial infection; unspecified site (20 sources) Chlamydial infection; Translations: [Chlamydial infection, unspecified] 03-25-2017 Episodic Biliary tract disease (20 sources) Gallstone; Translations: [Calculus of gallbladder without cholecystitis without obstruction] 2018 Episodic Cancer of cervix (16 sources) Low grade squamous intraepithelial lesion on cervical Papanicolaou smear; Translations: [Low grade squamous intraepithelial lesion on cytologic smear of cervix (LGSIL)] 10-18-2020 Episodic Comment on above: pap done at [facility] visi t. ASCUS can not rule out HGSIL. [place] on 10/25/20 Contraceptive and procreative management (1 source) Encounter for initial prescription of contraceptive pills; Translations: [General counseling on prescription of oral contraceptives] 06-03-2023 Episodic Diabetes mellitus without complication (20 sources) Abnormal glucose level; Translations: [Other abnormal glucose] 06-21-2018 Episodic Comment on above: nl 3 hour gtt normal 3 hr GTT Diabetes or abnormal glucose tolerance complicating ; childbirth; or the puerperium (1 source) Abnormal glucose complicating ; Translations: [Abnormal glucose complicating ] Onset: 02-06-2025 Episodic Diseases of mouth; excluding dental (20 sources) Glossodynia; Translations: [Glossodynia] 11-21-2020 Episodic Early or threatened labor (16 sources) False labor before 37 completed weeks of gestation; Translations: [False labor before 37 completed weeks of gestation, unspecified trimester] 06-21-2018 Episodic Genitourinary congenital anomalies (16 sources) Imperforate hymen; 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] 05-10-2018 [...] Translations: [Depressive disorder, not elsewhere classified] Onset: 01-06-2025 11-21-2020 Chronic Mycoses (20 sources) Candidiasis of [...] complications of (1 source) Obesity complicating , second trimester; Translations: [Obesity complicating , second trimester] Onset: 02-06-2025 Chronic Other complications of (1 source) Obesity complicating , unspecified trimester; Translations: [Obesity complicating , unspecified trimester] Onset: 07-29-2024 Chronic Other complications of (16 sources) Missed miscarriage; Translations: [Missed ] 2020 Episodic Comment on above: plan d and c Other complications of (16 sources) Disease caused by 2019-nCoV; Translations: [Other [...] PC: Andreina & Stefania *TWINS*, BF Will PRR,, LITA ,boy PC: Andreina & Stefania *TWINS*, BF Will Other complications of (20 sources) Spotting per vagina in ; Translations: [Spotting complicating , unspecified trimester] 07-21-2024 Episodic Other complications of (20 sources) H/O: miscarriage; Translations: [Supervision of with other poor reproductive or obstetric history, unspecified trimester] 07-08-2024 Episodic Comment on above: 2020- D&C @ 10wks; T risomy 21 Other complications of (20 sources) Pruritic urticarial papules and plaques of (PUPPP); Translations: [Pruritic urticarial papules and plaques of ] Onset: 02-06-2025 11-15-2024 Episodic Comment on above: medrol pk, claritan. Seeing derm medrol pk, claritan. Confirmed by derm Other complications of (2 sources) Maternal care for excessive growth, unspecified trimester, not applicable or unspecified; Translations: [Maternal care for excessive growth, unspecified trimester, not applicable or unspecified] Onset: 02-06-2025 Episodic Other complications of (1 source) Supervision of with other poor reproductive or obstetric history, unspecified trimester; Translations: [Supervision of with other poor reproductive or obstetric history, unspecified trimester] Onset: 01-06-2025 Episodic Other complications of (1 source) Supervision of high risk , unspecified, third trimester; Translations: [Supervision of high risk , unspecified, third trimester] Onset: 01-06-2025 Episodic Other complications of (1 source) Decreased movements, third trimester, not applicable or unspecified; Translations: [Decreased movements, third trimester, not applicable or unspecified] Onset: 01-13-2025 Episodic Other complications of (1 source) Supervision of high risk , unspecified, second trimester; Translations: [Supervision of high risk , unspecified, second trimester] Onset: 12-12-2024 Episodic Other female genital disorders (16 sources) Cervical intraepithelial neoplasia grade 2; Translations: [...] of ear drum, unspecified ear] 01-07-2011 Episodic Previous (1 source) Maternal care for unspecified type scar from previous delivery; Translations: [Maternal care for unspecified type scar from previous delivery] Onset: 01-06-2025 Episodic Residual codes; unclassified (20 sources) Hypersomnia; Translations: [Hypersomnia, unspecified] 05-23-2019 Chronic Residual codes; unclassified (16 sources) Abnormal cytology findings; Translations: [ASCUS favoring dysplasia] 02-19-2022 Episodic Comment on above: bx SEA II: LEEP Residual codes; unclassified (16 sources) History of loop electrosurgical excision procedure; Translations: [Other specified postprocedural states] 02-19-2022 Episodic Comment on above: 12/18/20 SEA 1; rpt p ap yearly until 3 neg. Residual codes; unclassified (20 sources) H/O: ; Translations: [Personal history of [...] patient refusal] 2018 Episodic Residual codes; unclassified (13 sources) Infertile 07-08-2024 Episodic Comment on above: ovarian kit reserve, good egg supply and qualityweight loss reviewed. desires weight loss management consult.tsh/pcos/hbga1c labsif labs normal will then desire semen analysis then hsg. will consider medication management. Residual codes; unclassified (1 source) 21 weeks gestation of ; Translations: [21 weeks gestation of ] Onset: 10-10-2024 Episodic Residual codes; unclassified (2 sources) 32 weeks gestation of ; Translations: [32 weeks gestation of ] Onset: 01-06-2025 Episodic Skin and subcutaneous tissue infections (20 [...] complicating , unspecified trimester] Onset: 07-30-19 Episodic Residual codes; unclassified (1 source) 9 weeks gestation of ; Translations: [9 weeks gestation of ] Onset: 07-30-19 Episodic Residual codes; unclassified (1 source) Personal history of other complications of , childbirth and the puerperium; Translations: [Personal history of other complications of , childbirth and the puerperium] Onset: 04-11-20 25 Episodic Unclassified (3 sources) Body mass [...] change of anti-depressant - Patient has seen [facility] in the past and was seen for depression. Provider started pt. on bupropion 300 mg and medication was helping pt. 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 10-16-2016 Unclassified (18 sources) Well Adult, female [...] one else at home sick. reviewed by [facility] 04-14-2014 Unclassified (18 sources) Eye symptoms - [...] Note for Upper respiratory infection: reviewed by [facility] 01-12-2013 Unclassified (18 sources) Allergic rhinitis - [...] Benadryl or anthing for this. reviewed by [facility] 02-24-2011 Unclassified (18 sources) Cold Symptoms - [...] for weight loss medication and [facility] 08-24-2023 Unclassified (9 sources) Obesity follow-up - [...] on wegovypt is down 32 lbs since [facility] Neck 15Bust 49.25waist 50.75hips 49.5I think the [...] Test Name Value Interpretation Reference Range Facility Contact Worker Office Visit Reporton 02-06-2025 Contact Worker Office Visit Report [facility] [address], [address] [place] [address] OFFICE VISIT Date of Service: 02/06/25 MR#: [id number] Acct: [id number] Name: PATTY ALVAREZ Rep #: [id number] : 1995 Provider: ARAVIND Hernandez ams Age/Sex: 29/F Location: [facility] Status: Signed Intake Vital Signs 12/21/24 10:25 01/30/25 14:08 02/06/25 13:04 Height 5 ft 3 in 5 ft 3 in 5 ft 3 in Weight: 283 lb 9 oz BMI 50.2 BP 118/78 Intake Visit Reasons: 37wk1d ob/nst * Chief Complaint: 37wk OB Jogger Operator Required: No Is patient in pain?: No Allergies Penicillins (PCN) Allergy (Verified 02/06/25 13:02) Rash Medications ???Medication ???Instructions ???Recorded ???Confirmed ???Type docosahexaenoic acid 200 mg mg PO 07/08/24 02/06/25 History capsule ( DHA) ondansetron 4 mg disintegrating 4 mg PO Q6H PRN nausea and 5 02/06/25 Rx tablet vomiting #30 tabs vits,calcium no.78-iron 1 tab PO Q24H 01/01/25 1 History fumarate-folic acid 29 mg-1 mg tablet (Prenatabs FA) Last Menstrual Period: 05/22/24 : No Have [...] 2 current occupational status: employed 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: No [...] times per week duration: < 15 minutes/day karo/lutheran: None seatbelt use: always do you feel [...] - full term 6lb 1oz Female spinal [facility] Amee Manuel 05/10/18 Stefania 38 live - full term 6lbs 5oz Female spin al [facility] Amee Schaffer 10/15/20 10 spontaneous Delivery Date: 05/10/18 Last Updated by: Laine Harden Twins; Breech/Breech Delivery Date: 05/10/18 Last Updated by: Laine Harden Twins; Breech/Breech Delivery Date: 10/15/20 Last Updated by: Hannah Mercado RN D - [facility] HPI 37wk1d ob/nst * Details: PATTY ALVAREZ is a 29 year old who presents for routine OB visit. OB Visit LITA Calculator Estimated Delivery Date Method Current WG Current Estimate 02/26/25 LMP (Certain) 37w 1d Expected Delivery Route/Plan tolac if able, if not cs sceheduled Labor Preferences- CB/BF classes: no labor support [...] appropriate orders placed. Relevant counseling for the ge (more content not included)... [facility] Rule out Beta Strep (Grp. B) on 02-01-2025 NHUNG Group B Beta Streptococcus is not isolated. Normal [facility] Comment on above: Performed By: #### M [id number] #### [facility] Laboratory [address] [place], [place], [address] OB Limited With [facility]ometric[facility] 01-31-2025 OB Limited With Biometrics [facility] Services [address] [place] [address] OB Limited With Biometrics MR#: [id number] Acct: [id number] Name: PATTY ALVAREZ Rep #: [id number] : 1995 F 29 From: Albert brown MD PCP: Louise Moon PA-C Status: REG CLI Study: OB Limited With Biometrics Date of Exam: 01/31 Exam# [id number] Ordering Dr: Ning Oquendo CNM ADDENDUM by Dr. Albert Benjamin MD on 02/06/25 at 1413 Addendum report for voice recognition error. Amniotic fluid volume: 11.8 cm. Estimated weight: 3629 g plus/-544 g. Reading Location: [place] [address] 02/06/254 Date cc: ARAVIND Oquendo; ERIK Moon * Signed PROCEDURE: OB LIMITED WITH BIOMETRICS 01/31/2025 REASON FOR EXAM: 36 WK GROWTH SCAN Limited examination due to patient's body habitus. TECHNIQUE: Procedure Code: [id number] Modality: US Procedure: OB LIMITED WITH BIOMETRICS COMPARISON: None FINDINGS Number: 1 Position: Vertex Placental Position: Posterior and not low-lying. Placental Abnormalities: No evidence of previa. There is a 4.4 cm 3.6 cm 3.1 cm cystic structure arising from the placental edge anteriorly. DIMENSIONS: Biparietal Diameter: 9.5 cm: 38 weeks and 5 days: 98 percentile/ Head Circumference: 34.4 cm: 39 weeks and 6 days: 93rd percentile/ Abdominal Circumference: 35.9 cm: 39 weeks and 6 days: 99 percentile/ Femur Length: 7.1 cm: 36 weeks and 2 days: 46 percentile / ESTIMATED WEIGHT: 2629 g plus/-544 g ESTIMATED WEIGHT PERCENTILE (24+ weeks): 97.6 ESTIMATED GESTATIONAL AGE: Baseline: 36 weeks and 2 days By Ultrasound: 38 weeks and 6 days ESTIMATED DATE OF DELIVERY: Baseline: February 26, 2025 By Ultrasound: February 08, 2025 BIOPHYSICAL ASSESSMENT: Amniotic Fluid Volume: 5.6 cm Amniotic Fluid Index: 7.8 (8-24 cm normal range) Cardiac Motion: 137 beats per minute (average) Trunk and Limb Motion: Present. MATERNAL ANATOMY: Adnexa: Neither maternal ovary is successfully identified. US/OB Limited With Biometrics IMPRESSION: Single live intrauterine gestation with mean gestational age of 38 weeks and 6 days. Reading Location: [place] [address] CC: ARAVIND Oquendo; ERIK Moon Lithograph Operator: Signed Normal [facility] Contact Worker Office Visit Reporton 01-30-2025 Contact Worker Office Visit Report [facility] [address], [address] [place] [address] OFFICE VISIT Date of Service: 01/30/25 MR#: [id number] Acct: [id number] Name: PATTY ALVAREZ Rep #: [id number] : 1995 Provider: Dr. Mallory Koch DO Age/Sex: 29/F Location: [facility] Status: Signed Intake Vital Signs 12/06/24 15:34 01/25/25 10:08 01/30/25 14:07 01/30/25 14:08 Height 5 ft 3 in 5 ft 3 in 5 ft 3 in 5 ft 3 in Weight: 287 lb 6 oz BMI 50.9 BP 109/70 Intake Visit Reasons: 36wk1d ob/nst * Jogger Operator Required: No Is patient in pain?: No Allergies Penicillins (PCN) Allergy (Verified 01/30/25 14:07) Rash Medications ???Medication ???Instructions ???Recorded ???Confirmed ???Type docosahexaenoic acid 200 mg mg PO 07/08/24 01/30/25 History capsule ( DHA) ondansetron 4 mg disintegrating 4 mg PO Q6H PRN nausea and 5 01/30/25 Rx tablet vomiting #30 tabs vits,calcium no.78-iron 1 tab PO Q24H 01/01/25 1 History fumarate-folic acid 29 mg-1 mg tablet (Prenatabs FA) Last Menstrual Period: 05/22/24 Zika: Zika virus [...] 2 current occupational status: employed 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: No [...] times per week duration: < 15 minutes/day karo/lutheran: None seatbelt use: always do you feel [...] - full term 6lb 1oz Female spinal [facility] Amee Manuel 05/10/18 Stefania 38 live - full term 6lbs 5oz Female spin al [facility] Amee Schaffer 10/15/20 10 spontaneous Delivery Date: 05/10/18 Last Updated by: Laine Harden Twins; Breech/Breech Delivery Date: 05/10/18 Last Updated by: Laine Harden Twins; Breech/Breech Delivery Date: 10/15/20 Last Updated by: Hannah Mercado RN D C - [facility] HPI 36wk1d ob/nst * Details: PATTY ALVAREZ is a 29 year old who presents for routine OB visit. OB Visit LITA Calculator Estimated Delivery Date Method Current WG Current Estimate 02/26/25 LMP (Certain) 36w 1d Expected Delivery Route/Plan tolac if able, if not cs sceheduled Labor Preferences- CB/BF classes: no labor support [...] of care details and appropriate orders placed. R (more content not included)... Normal [facility] Contact Worker Office Visit Reporton 01-25-2025 Contact Worker Office Visit Report [facility] [address] [place] [address], [address] [place] [address] OFFICE VISIT Date of Service: 01/25/25 MR#: [id number] Acct: [id number] Name: PATTY ALVAREZ Rep #: [id number] : 1995 Provider: Dr. Amee alvarez MD Age/Sex: 29/F Location: [facility] Status: Signed Intake Vital Signs 01/06/25 13:53 01/20/25 14:26 01/25/25 10:07 01/25/25 10:08 Height 5 ft 3 in 5 ft 3 in 5 ft 3 in 5 ft 3 in Weight: 286 lb 4 oz 285 lb 7 oz BMI 50.7 50.5 BP 108/69 107/71 Intake Visit Reasons: 35wk NST ONLY Jogger Operator Required: No Is patient in pain?: No Allergies Penicillins (PCN) Allergy (Verified 01/25/25 10:07) Rash Medications ???Medication ???Instructions ???Recorded ???Confirmed ???Type docosahexaenoic acid 200 mg mg PO 07/08/24 01/25/25 History capsule ( DHA) ondansetron 4 mg disintegrating 4 mg PO Q6H PRN nausea and 5 01/25/25 Rx tablet vomiting #30 tabs vits,calcium no.78-iron 1 tab PO Q24H 01/01/25 1 History fumarate-folic acid 29 mg-1 mg tablet (Prenatabs FA) Last Menstrual Period: 05/22/24 Zika: Zika virus [...] 2 current occupational status: employed 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 Date Name GA/Weeks Outcome Route Bth Weight Gen Labor Lgth Anesthesia Del [facility] Provider FOB 05/10/18 Andreina 38 live - full term 6lb 1oz Female spinal [facility] 05/10/18 Stefania 38 live - full term 6lbs 5oz Female spin al [facility] 10/15/20 10 spontaneous Delivery Date: 05/10/18 Last Updated by: Laine Harden Twins; Breech/Breech Delivery Date: 05/10/18 Last Updated by: Laine Harden Twins; Breech/Breech Delivery Date: 10/15/20 Last Updated by: MICH Cervantes C - [facility] HPI 35wk NST ONLY Details: PATTY ALVAREZ is a 29 year old who presents for routine OB visit. OB Visit LITA Calculator Estimated Delivery Date Method Current WG Current Estimate 02/26/25 LMP (Certain) 35w 3d Expected Delivery Route/Plan tolac if able, if not cs sceheduled Labor Preferences- CB/BF classes: no labor support [...] plan of care details and appropriate orders p (more content not included)... Normal [facility] Laboratory - Chemistry and C hemistry - challengeOrdered By: Amee Schaffer on 01-20-2025 Glucose Ql (U) Negative [facility] Laboratory - UrinalysisOrder ed By: Amee Schaffer on 01-20-2025 Protein Ql (U) Negative [facility] Contact Worker Office Visit Reporton 01-20-2025 Contact Worker Office Visit Report [facility] [address], [address] [place] [address] OFFICE VISIT Date of Service: 01/20/25 MR#: [id number] Acct: [id number] Name: PATTY ALVAREZ Rep #: [id number] : 1995 Provider: Dr. Amee alvarez MD Age/Sex: 29/F Location: [facility] Status: Signed Intake Vital Signs 12/06/24 15:34 01/06/25 13:53 01/20/25 14:26 Height 5 ft 3 in 5 ft 3 in 5 ft 3 in Weight: 286 lb 4 oz BMI 50.7 BP 108/69 Intake Visit Reasons: 34wk5d ob/nst * Jogger Operator Required: No Is patient in pain?: No Allergies Penicillins (PCN) Allergy (Verified 01/20/25 14:24) Rash Medications ???Medication ???Instructions ???Recorded ???Confirmed ???Type docosahexaenoic acid 200 mg mg PO 07/08/24 01/20/25 History capsule ( DHA) ondansetron 4 mg disintegrating 4 mg PO Q6H PRN nausea and 5 01/20/25 Rx tablet vomiting #30 tabs methylprednisolone 4 mg tablets in See Rx Instructions PO PER PKG D IR 11/15/24 01/20/25 Rx a dose pack (Medrol (Melissa)) #21 tabs vits,calcium no.78-iron 1 tab PO Q24H 01/01/25 1 History fumarate-folic acid 29 mg-1 mg tablet (Prenatabs FA) Last Menstrual Period: 05/22/24 Zika: Zika virus [...] 2 current occupational status: employed 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: No [...] times per week duration: < 15 minutes/day karo/lutheran: None seatbelt use: always do you feel [...] full term 6lb 1oz Female spinal [facility] Amee Manuel 05/10/18 Stefania 38 live - full term 6lbs 5oz Female spin al [facility] Manuel 10/15/20 10 spontaneous Delivery Date: 05/10/18 Last Updated by: Laine Harden Twins; Breech/Breech Delivery Date: 05/10/18 Last Updated by: Laine Harden Twins; Breech/Breech Delivery Date: 10/15/20 Last Updated by: Hannah Mercado RN D C - [facility] HPI 34wk5d ob/nst * Details: PATTY ALVAREZ is a 29 year old who presents for routine OB visit. OB Visit LITA Calculator Estimated Delivery Date Method Current WG Current Estimate 02/26/25 LMP (Certain) 34w 5d Expected Delivery Route/Plan Labor Preferences- CB/BF classes: [...] list reviewed and updated with the most cu (more content not included)... Normal [facility] Laboratory - Chemistry and C hemistry - challengeOrdered By: Ning Oquendo on 01-06-2025 Glucose Ql (U) Negative [facility] Laboratory - UrinalysisOrder ed By: Ning Oquendo on 01-06-2025 Protein Ql (U) Negative [facility] Contact Worker Office Visit Reporton 01-06-2025 Contact Worker Office Visit Report [facility] [address] [place] [address], [address] [place] [address] OFFICE VISIT Date of Service: 01/06/25 MR#: [id number] Acct: [id number] Name: PATTY ALVAREZ Rep #: [id number] : 1995 Provider: ARAVIND Hernandez ams Age/Sex: 29/F Location: [facility] Status: Signed Intake Vital Signs 12/06/24 15:34 01/01/25 09:37 01/06/25 13:51 01/06/25 13:53 Height 5 ft 3 in 5 ft 3 in 5 ft 3 in 5 ft 3 in Weight: 285 lb 6 oz BMI 50.5 BP 112/72 Intake Visit Reasons: 32wk ob * Jogger Operator Required: No Is patient in pain?: No Allergies Penicillins (PCN) Allergy (Verified 01/06/25 13:52) Rash Medications ???Medication ???Instructions ???Recorded ???Confirmed ???Type docosahexaenoic acid 200 mg mg PO 07/08/24 01/06/25 History capsule ( DHA) ondansetron 4 mg disintegrating 4 mg PO Q6H PRN nausea and 5 01/06/25 Rx tablet vomiting #30 tabs methylprednisolone 4 mg tablets in See Rx Instructions PO PER PKG D IR 11/15/24 01/06/25 Rx a dose pack (Medrol (Melissa)) #21 tabs vits,calcium no.78-iron 1 tab PO Q24H 01/01/25 0 01/06/25 History fumarate-folic acid 29 mg-1 mg tablet (Prenatabs FA) Last Menstrual Period: 05/22/24 Zika: Zika virus [...] 2 current occupational status: employed 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: No [...] times per week duration: < 15 minutes/day karo/lutheran: None seatbelt use: always do you feel [...] term 6lb 1oz Female spinal [facility] Manuel 05/10/18 Stefania 38 live - full term 6lbs 5oz Female spin al [facility] Manuel 10/15/20 10 spontaneous Delivery Date: 05/10/18 Last Updated by: Laine Harden Twins; Breech/Breech Delivery Date: 05/10/18 Last Updated by: Laine Harden Twins; Breech/Breech Delivery Date: 10/15/20 Last Updated by: MICH Cervantes C - [facility] HPI 32wk ob * Details: PATTY ALVAREZ is a 29 year old who presents for routine OB visit. OB Visit LITA Calculator Estimated Delivery Date Method Current WG Current Estimate 02/26/25 LMP (Certain) 32w 5d Expected Delivery Route/Plan Labor Preferences- CB/BF classes: [...] Rhogam: [] LARC form signed: [] Problem lis (more content not included)... Normal [facility] OB Triage Progress Noteon OB Triage Progress Note [facility] Medical Records Department [address] [place] [address] OB Triage Progress Note 01/01/25 1234 MR#: [id number] Acct: [id number] Name: PATTY ALVAREZ Rep #: [id number] : 1995 29 From: Amee Schaffer MD PCP: Louise Moon PA-C Status:LAINEY Thomas DOS: Location: WPOUT Progress Notes Date of Service: 01/01/25 Progress Note: Patient presents for triage evaluation secondary to decresaed movement FHT: 130 Moderate variability reactive no decelerations category I tracing Chunky: no regular Contractions Assessment and plan: decresaed movement Reactive NST, reassuring maternal and status patient discharged to home to follow-up as scheudled. See problem list details for additional plan information. Charges/Coding Procedures Urinary/Genital 52xxx-59xxx: 25343-60 non-stress test Interp 01/01/25 1234 Date Amee Schaffer MD Cosigner Signature (if applicable): Date __ CC: ERIK Moon; Dr. Amee Schaffer MD Signed ADDENDUM by Dr. Amee Schaffer MD on 01/09/25 at 1458 Addendum 32 weeks 01/09/25 1458 Date Amee Schaffer MD cc: ERIK Moon; Dr. Amee Schaffer MD * Signed ADDENDUM by Dr. Amee Schaffer MD on 01/12/25 at 1124 Addendum 31 weeks gesttional age 0901/12/25 1124 Date Amee Schaffer MD cc: ERIK Moon; Dr. Amee Schaffer MD * Signed Normal [facility] Laboratory - Chemistry and C hemistry - challengeOrdered By: Mallory Chopra on 12-21-2024 Glucose Ql (U) Negative [facility] Laboratory - UrinalysisOrder ed By: Mallory Chopra on 12-21-2024 Protein Ql (U) Negative [facility] Contact Worker Office Visit Reporton 12-21-2024 Contact Worker Office Visit Report [facility]'s [address], [address] [place] [address] OFFICE VISIT Date of Service: 12/21/24 MR#: [id number] Acct: [id number] Name: PATTY ALVAREZ Rep #: [id number] : 1995 Provider: Dr. 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: No [...] times per week duration: < 15 minutes/day karo/lutheran: None seatbelt use: always do you feel [...] - full term 6lb 1oz Female spinal [facility] Manuel 05/10/18 Stefania 38 live - full term 6lbs 5oz Female spin al [facility] 10/15/20 10 spontaneous Delivery Date: 05/10/18 Last Updated by: Laine Harden Twins; Breech/Breech Delivery Date: 05/10/18 Last Updated by: Laine Harden Twins; Breech/Breech Delivery Date: 10/15/20 Last Updated by: Hannah Mercado RN D C - [facility] HPI 30 wk ob * Details: PATTY [...] provided. Contin (more content not included)... Normal [facility] Gestational GTT 3HR 100gon 0 12-13-2024 GEST GTT 100gm High [facility] Comment on above: Order Comment: Y [...] Col: 12/13/24 1031 Performed By: #### L 500.4710 ####[facility] [id number] [place], [address] Quantitative serum or plasma 3 hour gestational glucose tolerance panelOrdered By: Bessie Mansfield on 12-13-2024 Glucose tolerance 3 hours gestational panel See comment [facility] Comment on above: FASTING 87 Col: [...] Auto (Unsp spec) [#/Vol] 1.30 10*3/uL 0.83-4.51 [facility] Absolute neutrophil countOrd ered By: Bessie Mansfield on 12-06-2024 Neutrophils (Bld) [#/Vol] 7.7 10*3/uL 2.0-7.7 [facility] Automated lymphocyte count a s percentage of total leukocytesOrdered By: Bessie Mansfield on 12-06-2024 Lymphocytes/100 WBC Auto (Unsp spec) 13.5 % Low 19-41 [facility] Basophil percentageOrdered B y: Bessie Mansfield on 12-06-2024 Basophils/100 WBC (Bld) 0.2 % 0-1 [facility] CBC W/Diff, Automatedon 11-18 Absolute Lymph 1.30 X10 3/uL Normal 0.83-4.51 [facility] Comment on above: Performed By: #### L 509.8002, L3890.6006, L100.0100, L501.0250 #### [facility] Laboratory [address] [place], [address] Absolute Neut 7.7 X10 3/uL Normal 2.0-7.7 [facility] Comment on above: Performed By: #### L 509.8002, L3890.6006, L100.0100, L501.0250 #### [facility] Laboratory [address] [place], [address] Basophils/100 WBC (Bld) 0.2 % Normal 0-1 [facility] Comment on above: Performed By: #### L 509.8002, L3890.6006, L100.0100, L501.0250 #### [facility] [address] [place], [address] Eosinophils/100 WBC (Bld) 1.0 % Normal 0-5 [facility] Comment on above: Performed By: #### L 509.8002, L3890.6006, L100.0100, L501.0250 #### [facility] [address] [place], [address] Erythrocyte distribution width (RBC) [Ratio] 12.3 % Normal 11.6-14.6 [facility] Comment on above: Performed By: #### L 509.8002, L3890.6006, L100.0100, L501.0250 #### [facility] [address] [place], [address] Hematocrit (Bld) [Volume fraction] 36.2 % Low 37-47 [facility] Comment on above: Performed By: #### L 509.8002, L3890.6006, L100.0100, L501.0250 #### [facility] [address] [place], [address] Hemoglobin (Bld) [Mass/Vol] 12.5 g/dL Normal 12.0-15.0 [facility] Comment on above: Performed By: #### L 509.8002, L3890.6006, L100.0100, L501.0250 #### [facility] [address] [place], [address] IG% 1.200 High 0.0-0.9 [facility] Comment on above: Result Comment: IG% - Immature Granulocytes (promyelocytes, myelocytes and metamyelocytes) > 1% indicates that a LEFT SHIFT is Present. Performed By: #### L 509.8002, L3890.6006, L100.0100, L501.0250 #### [facility] [address] [place], [address] Lymphocytes/100 WBC (Bld) 13.5 % Low 19-41 [facility] Comment on above: Performed By: #### L 509.8002, L3890.6006, L100.0100, L501.0250 #### [facility] [address] [place], [address] MCH (RBC) [Entitic mass] 31.8 pg Normal 27.0-32.0 [facility] Comment on above: Performed By: #### L 509.8002, L3890.6006, L100.0100, L501.0250 #### [facility] [address] [place], [address] MCHC (RBC) [Mass/Vol] 34.5 g/dL Normal 32-[address] [facility] Comment on above: Performed By: #### L 509.8002, L3890.6006, L100.0100, L501.0250 #### [facility] [address] [place], [address] MCV (RBC) [Entitic vol] 92.1 fL Normal 81-99 [facility] Comment on above: Performed By: #### L 509.8002, L3890.6006, L100.0100, L501.0250 #### [facility] [address] [place], [address] Monocytes/100 WBC (Bld) 3.8 % Normal 0-10 [facility] Comment on above: Performed By: #### L 509.8002, L3890.6006, L100.0100, L501.0250 #### [facility] [address] [place], [address] Neutrophils/100 WBC (Bld) 80.3 % High 47-70 [facility] Comment on above: Performed By: #### L 509.8002, L3890.6006, L100.0100, L501.0250 #### [facility] [address] [place], [address] Nucleated RBC (Bld) [#/Vol] 0 10*3/uL Normal 0-5 [facility] Comment on above: Performed By: #### L 509.8002, L3890.6006, L100.0100, L501.0250 #### [facility] [address] [place], [address] Platelet mean volume (Bld) [Entitic vol] 12.1 fL High 6.2-12.0 [facility] Comment on above: Performed By: #### L 509.8002, L3890.6006, L100.0100, L501.0250 #### [facility] [address] [place], [address] Platelets (Bld) [#/Vol] 205 10*3/uL Normal 150-450 [facility] Comment on above: Performed By: #### L 509.8002, L3890.6006, L100.0100, L501.0250 #### [facility] [address] [place], [address] RBC (Bld) [#/Vol] 3.93 10*6/uL Low 4.2-5.4 [facility] Comment on above: Performed By: #### L 509.8002, L3890.6006, L100.0100, L501.0250 #### [facility] [address] [place], [address] RDW SD 41.9 fl Normal 35.1-43.9 [facility] Comment on above: Performed By: #### L 509.8002, L3890.6006, L100.0100, L501.0250 #### [facility] [address] [place], [address] WBC (Bld) [#/Vol] 9.6 10*3/uL Normal 4.4-11.0 [facility] Comment on above: Performed By: #### L 509.8002, L3890.6006, L100.0100, L501.0250 #### [facility] [address] [place], [address] Eosinophil percentageOrdered By: Bessie Mansfield on 12-06-2024 Eosinophils/100 WBC (Bld) 1.0 % 0-5 [facility] Erythrocyte distribution wid th ratioOrdered By: Bessie Mansfield on 12-06-2024 Erythrocyte distribution width (RBC) [Ratio] 12.3 % 11.6-14.6 [facility] Erythrocyte distribution wid th standard deviationOrdered By: Bessie Mansfield on 12-06-2024 Erythrocyte distribution width (RBC) [Ratio] 41.9 fl 35.1-43.9 [facility] Glucose Challenge Gest 1H 50 juan diego 12-06-2024 GLU GEST 50g 1H 168 mg/dL High 70-140 [facility] Comment on above: Result Comment: AMENDED REPORT 12/06/241709 GLU GEST 50g 1H previously reported as: 168 H mg/dL Performed By: #### L 509.8002, L3890.6006, L100.0100, L501.0250 #### [facility] [address] [facility] [place], [address] Glucose measurement at 2 gabriella rs post-dose gestational glucose tolerance testOrdered By: Bessie Mansfield on 12-06-2024 Glucose [Mass/Vol] 167 mg/dL High 70-140 [facility] Comment on above: Previous reported re sult: 168 mg/dLEdited by: JARED on 12/06/24:1710 AMENDED REPORT 12/06/241709 GLU GEST 50g 1H previously reported as: 168 H mg/dL HIVon 12-06-2024 HIV Non-Reactive Normal Nonreactive [facility] Comment on above: Result Comment: Non- Reactive Reactive Repeatedly reactive samples must be confirmed according to CDC recommended confirmatory algorithms. The subresults for either HIVAG or AHIV can be used as an aid in the selection of the confirmation algorithm for reactive samples. Send out specimens with Reactive results to [facility] for confirmation. Order the HIV antibody detection and differentiation: #[id number] Performed By: #### L 509.8002, L3890.6006, L100.0100, L501.0250 ####[facility] [id number] [facility]. [place], [place], [id number] Hematocrit Auto (Bld) [Volum e fraction]Ordered By: Bessie Mansfield on 12-06-2024 Hematocrit (Bld) [Volume fraction] 36.2 % Low 37-47 [facility] Hemoglobin measurementOrdere d By: Bessie Mansfield on 12-06-2024 Hemoglobin (Bld) [Mass/Vol] 12.5 g/dL 12.0-15.0 [facility] Immature granulocytes/100 WB C Auto (Bld)Ordered By: Bessie Mansfield on 12-06-2024 Immature granulocytes/100 WBC (Bld) 1.200 % High 0.0-0.9 [facility] Comment on above: IG% - Immature Granu locytes (promyelocytes, myelocytes and metamyelocytes) > 1% indicates that a LEFT SHIFT is Present. MCV (mean corpuscular volume ) determinationOrdered By: Bessie Mansfield on 12-06-2024 MCV (RBC) [Entitic vol] 92.1 fL 81-99 [facility] Mean corpuscular hemoglobin (MCH) determinationOrdered By: Bessie Mansfield on 12-06-2024 MCH (RBC) [Entitic mass] 31.8 pg 27.0-32.0 [facility] Mean corpuscular hemoglobin concentration (MCHC) determinationOrdered By: Bessie Mansfield on 12-06-2024 MCHC (RBC) [Mass/Vol] 34.5 g/dL 32-[address] [facility] Mean platelet volume determi nationOrdered By: Bessie Mansfield on 12-06-2024 Platelet mean volume (Bld) [Entitic vol] 12.1 fL High 6.2-12.0 [facility] Monocyte percentageOrdered B y: Bessie Mansfield on 12-06-2024 Monocytes/100 WBC (Bld) 3.8 % 0-10 [facility] Neutrophil percentageOrdered By: Bessie Mansfield on 12-06-2024 Neutrophils/100 WBC (Bld) 80.3 % High 47-70 [facility] No Panel InformationOrdered By: Bessie Mansfield on 12-06-2024 HIV (1&2) Antibody Non-Reactive Nonreactive [facility] Comment on above: Non-ReactiveReactive Repeatedly reactive samples must be confirmed according to CDC recommended confirmatory algorithms. The subresults for either HIVAG or AHIV can be used as an aid in the selection of the confirmation algorithm for reactive samples.Send out specimens with Reactive results to [facility] for confirmation.Order the HIV antibody detection and differentiation: #[id number] Nucleated red blood cell per centageOrdered By: Bessie Mansfield on 12-06-2024 Nucleated RBC/100 WBC (Bld) [Ratio] 0 % 0-5 [facility] Contact Worker Office Visit Reporton 12-06-2024 Contact Worker Office Visit Report [facility] [address] [place] [address], [address] [place] [address] OFFICE VISIT Date of Service: 12/06/24 MR#: [id number] Acct: [id number] Name: PATTY ALVAREZ Rep #: [id number] : 1995 Provider: GAVIN solis Age/Sex: 29/F Location: [facility] Status: Signed Intake Vital Signs 09/19/24 14:11 11/15/24 13:35 12/06/24 15:34 Height 5 ft 3 in 5 ft 3 in 5 ft 3 in Weight: 273 lb 8 oz 281 lb 2 oz BMI 48.4 49.8 BP 118/78 126/72 H Intake Visit Reasons: 28wk ob/glucose Chief Complaint: 28 Week OB/Glucose Jogger Operator Required: No Is patient in pain?: No [...] 2 current occupational status: employed 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: No [...] times per week duration: < 15 minutes/day karo/lutheran: None seatbelt use: always do you feel [...] - full term 6lb 1oz Female spinal [facility] Manuel 05/10/18 Stefania 38 live - full term 6lbs 5oz Female spin al [facility] 10/15/20 10 spontaneous Delivery Date: 05/10/18 Last Updated by: Laine Harden Twins; Breech/Breech Delivery Date: 05/10/18 Last Updated by: Laine Harden Twins; Breech/Breech Delivery Date: 10/15/20 Last Updated by: MCIH Cervantes C - [facility] HPI 28wk ob/glucose Details: PATTY ALVAREZ is [...] -???-???-???-???-?? ?-???-???-???-??? (more content not included)... Normal [facility] Platelet countOrdered By: Earl Mansfield on 12-06-2024 Platelets (Bld) [#/Vol] 205 10*3/uL 150-450 [facility] RBC Auto (Bld) [#/Vol]Ordere d By: Bessie Mansfield on 12-06-2024 RBC (Bld) [#/Vol] 3.93 10*6/uL Low 4.2-5.4 [facility] Syphilis Antibodieson 2024 Syphilis Abs Non-Reactive Normal Nonreactive [facility] Comment on above: Performed By: #### L 509.8002, L3890.6006, L100.0100, L501.0250 ####[facility] [id number] [place], [address] White blood cell (WBC) count Ordered By: Bessie Mansfield on 12-06-2024 WBC (Bld) [#/Vol] 9.6 10*3/uL 4.4-11.0 [facility] Laboratory - Chemistry and C hemistry - challengeOrdered By: Bessie Masnfield on 11-15-2024 Glucose Ql (U) Negative [facility] Laboratory - UrinalysisOrder ed By: Bessie Mansfield on 11-15-2024 Protein Ql (U) Negative [facility] Contact Worker Office Visit Reporton 11-15-2024 Contact Worker Office Visit Report [facility] [address], [address] [place] [address] OFFICE VISIT Date of Service: 11/15/24 MR#: [id number] Acct: [id number] Name: PATTY ALVAREZ Rep #: [id number] : 1995 Provider: GAVIN solis Age/Sex: 29/F Location: [facility] Status: Signed Intake Vital Signs 09/19/24 14:11 10/17/24 15:36 11/15/24 13:35 Height 5 ft 3 in 5 ft 3 in 5 ft 3 in Weight: 273 lb 8 oz BMI 48.4 BP 118/78 Intake Visit Reasons: 25wk ob * Chief Complaint: 25 Week OB Jogger Operator Required: No Is patient in pain?: No [...] 2 current occupational status: employed 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 Normal [facility] ANABEL BY IFA SCREEN [CCL]on Nuclear Ab IF (S) [Titer] Negative Normal Negative [facility] Comment on above: Result Comment: Anti -nuclear antibody test is used as an aid in diagnosis of systemic autoimmune diseases. Where positive and clinically warranted, follow-up using disease-specific testing is recommended. Low positive titers are not uncommon with advanced age, certain chronic infections, and malignancies among others. Test methodology: Indirect fluorescence immunoassay (IFA) using HEp-2 cells. [place] [address] [place] [address] Michel Modi III, M.D. [id number] Performed By: #### 2 71637 #### [place] [id number] CMP with eGFRon 10-24-2024 AGE 28 years Normal [facility] Comment on above: Performed By: #### 2 89318 #### [facility],[address] [place], [place] [id number] Albumin [Mass/Vol] 2.8 g/dL Low 3.4 - 5.0 [facility] Comment on above: Performed By: #### 2 [address]1946 #### [address] [address] Albumin/Globulin [Mass ratio] 0.6 {ratio} Low 0.9 - 1.6 [facility] Comment on above: Performed By: #### 2 31816 #### [facility],[address] [place], [place] [id number] ALK PHOS 75 U/L Normal 46 - 116 [facility] Comment on above: Performed By: #### 2 24439 #### [facility],[address] [place] [address] ALT [Catalytic activity/Vol] 23 U/L Normal 16 - 63 [facility] Comment on above: Performed By: #### 2 82844 #### [facility],[address] [place] [address] Anion gap [Moles/Vol] 16 mmol/L Normal 10 - 20 [facility] Comment on above: Performed By: #### 2 35149 #### [facility],[address] [place], [place] [id number] AST [Catalytic activity/Vol] 13 U/L Normal 13 - 39 [facility] Comment on above: Performed By: #### 2 52446 #### [facility],[address] [place], [place] [id number] B/C RATIO 13 ratio Normal 0 - 30 [facility] Comment on above: Performed By: #### 2 23784 #### [facility],[address] [place] [address] Bilirubin [Mass/Vol] 0.4 mg/dL Normal 0.2 - 1.0 [facility] Comment on above: Performed By: #### 2 81731 #### [facility],[address] [place] [address] Calcium [Mass/Vol] 9.0 mg/dL Normal 8.5 - 10.1 [facility] Comment on above: Performed By: #### 2 63297 #### [facility],[address] [place] [address] Chloride [Moles/Vol] 104 mmol/L Normal 98 - 107 [facility] Comment on above: Performed By: #### 2 50510 #### [facility],[address] [place] [address] CMP with eGFR Normal [facility] Comment on above: Result Comment: COMP REHENSIVE METABOLIC PANEL Performed By: #### 2 25796 #### [facility],[address] [place] [address] CO2 [Moles/Vol] 21.8 mmol/L Normal 21.0 - 32.0 [facility] Comment on above: Performed By: #### 2 57424 #### [facility],[address] [place] [address] Creatinine [Mass/Vol] 0.53 mg/dL Low 0.55 - 1.02 [facility] Comment on above: Performed By: #### 2 48288 #### [facility],[address] [place] [address] GFR/1.73 sq M.predicted among non-blacks MDRD (S/P/Bld) [Vol rate/Area] mL/min/{1.73_m2} Normal 60 - 999 [facility] Comment on above: Performed By: #### 2 15275 #### [facility],[address] [place] [address] Result Comment: ACCO RDING TO THE NATIONAL KIDNEY DISEASE EDUCATION PROGRAM(NKDE), A NORMAL eGFR IS A VALUE GREATER THAN OR EQUAL TO 60 ML/MIN/1.73 SQ METERS. CHRONIC KIDNEY DISEASE: <60mL/MIN/1.73 SQ METERS KIDNEY FAILURE: <15mL/MIN/1.73 SQ METERS THIS TEST SHOULD ONLY BE USED FOR PATIENTS 18 YEARS OF AGE AND OLDER. Globulin (S) [Mass/Vol] 4.4 g/dL High 1.5 - 3.8 [facility] Comment on above: Performed By: #### 2 01715 #### [facility],[address] [place] [address] Glucose [Mass/Vol] 88 mg/dL Normal 74 - 106 [facility] Comment on above: Performed By: #### 2 65543 #### [facility],[address] [place] [address] Potassium [Moles/Vol] 3.7 mmol/L Normal 3.5 - 5.1 [facility] Comment on above: Performed By: #### 2 90212 #### [facility],[address] [place] [address] Protein [Mass/Vol] 7.2 g/dL Normal 6.4 - 8.2 [facility] Comment on above: Performed By: #### 2 63249 #### [facility],[address] [place] [address] Sodium [Moles/Vol] 138 mmol/L Normal 136 - 145 [facility] Comment on above: Performed By: #### 2 22985 #### [facility],[address] [place] [address] Urea nitrogen [Mass/Vol] 7 mg/dL Normal 7 - 18 [facility] Comment on above: Performed By: #### 2 38069 #### [facility],[address] [place] [address] Laboratory - Chemistry and C hemistry - challengeOrdered By: Bessie Mansfield on 10-17-2024 Glucose Ql (U) Negative [facility] Laboratory - UrinalysisOrder ed By: Bessie Mansfield on 10-17-2024 Protein Ql (U) Negative [facility] Contact Worker Office Visit Reporton 10-17-2024 Contact Worker Office Visit Report [facility] [address], [address] [place] [address] OFFICE VISIT Date of Service: 10/17/24 MR#: [id number] Acct: [id number] Name: PATTY ALVAREZ Rep #: [id number] : 1995 Provider: GAVIN solis Age/Sex: 28/F Location: [facility] Status: Signed Intake Vital Signs 07/29/24 14:29 09/19/24 14:11 10/17/24 15:36 Height 5 ft 3 in 5 ft 3 in 5 ft 3 in Weight: 278 lb 4 oz BMI 49.3 BP 120/74 Intake Visit Reasons: 21 wk ob * Chief Complaint: 21 Week OB Jogger Operator Required: No Is patient in pain?: No [...] 2 current occupational status: employed 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-???-???-???-???-? ??-?? (more content not included)... Normal [facility] OB INITIAL >or= 14 WEEKS; 1st GESTATon 10-10-2024 OB INITIAL >or= 14 WEEKS; 1st GESTAT [place] [address] Patient: PATTY ALVAREZ Phone#: : 1995 Age: 28 Gender: F Pt. Type: Out Account: [id number] Location: Ordering: AMEE SCHAFFER Exam Date: 10/10/2024/14:01 Family Phys: LOUISE MOON Charge Code: 908524 Physician: [place] Order #: [id number] Dose#: PROCEDURE: OB INITIAL >14 WEEKS ULTRASOUND, [...] inal circumference ratio slightly above expected range [place] [id number] Patient: PATTY ALVAREZ Phone#: : 1995 Age: 28 Gender: F Pt. Type: Out Account: [id number] Location: Ordering: AMEE SCHAFFER Exam Date: 10/10/2024/14:01 Family Phys: LOUISE SARAI Charge Code: 303707 Physician: [place] Order #: [id number] Dose#: Dictated by: Danielle Cali MD on 10/10/2024 at 22:18 Approved by: Danielle Cali MD on 10/10/2024 at 22:28 Normal [facility] Laboratory - Chemistry and C hemistry - challengeOrdered By: Ning Oquendo on 09-19-2024 Glucose Ql (U) Negative [facility] Laboratory - UrinalysisOrder ed By: Ning Oquendo on 09-19-2024 Protein Ql (U) Negative [facility] Contact Worker Office Visit Reporton 09-19-2024 Contact Worker Office Visit Report [facility] [address], [address] [place] [address] OFFICE VISIT Date of Service: 09/19/24 MR#: [id number] Acct: [id number] Name: PATTY ALVAREZ Rep #: [id number] : 1995 Provider: ARAVIND Hernandez ams Age/Sex: 28/F Location: [facility] Status: Signed Intake Vital Signs 07/29/24 14:29 08/24/24 14:44 09/19/24 14:11 Height 5 ft 3 in 5 ft 3 in 5 ft 3 in Weight: 273 lb BMI 48.3 BP 122/78 H Intake Visit Reasons: 17 wk ob * Chief Complaint: 17wk OB Jogger Operator Required: No Is patient in pain?: No [...] 2 current occupational status: employed current occupation: [employer]: [employer] Marcelo current occupational exposures/hazards: No [...] times per week duration: < 15 minutes/day karo/lutheran: None seatbelt use: always do you feel safe at home: Yes additional social history: 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 Date Name GA/Weeks Outcome Route Bth Weight Infant Gen Labor Lgth Anesthesia Del Locat Provider FOB 05/10/18 Andreina 38 live - full term 6lb [facility] 05/10/18 Stefania 38 live - full term 6lbs 5oz Female spin al [facility] Eriklegacy [facility] 10/15/20 10 spontaneous Delivery Date: 05/10/18 Last Updated by: Laine Harden Twins; Breech/Breech Delivery Date: 05/10/18 Last Updated by: Laine Harden Twins; Breech/Breech Delivery Date: 10/15/20 Last Updated by: MICH Cervantes C - [facility] HPI 17 wk ob * Details: PATTY [...] 6 oz (more content not included)... Normal [facility] Laboratory - Chemistry and C hemistry - challengeOrdered By: Amee Schaffer on 08-24-2024 Glucose Ql (U) Negative [facility] Laboratory - UrinalysisOrder ed By: Amee Schaffer on 08-24-2024 Protein Ql (U) Negative [facility] Contact Worker Office Visit Reporton 08-24-2024 Contact Worker Office Visit Report [facility] [address], [address] [place] [address] OFFICE VISIT Date of Service: 08/24/24 MR#: [id number] Acct: [id number] Name: PATTY ALVAREZ Rep #: [id number] : 1995 Provider: Dr. Amee alvarez MD Age/Sex: 28/F Location: [facility] Status: Signed Intake Vital Signs 08/04/24 14:29 08/24/24 14:44 Height 5 ft 3 in 5 ft 3 in Weight: 269 lb 6 oz BMI 47.7 BP 125/84 H Intake Visit Reasons: 13wk OB * Jogger Operator Required: No Allergies Penicillins (PCN) Allergy (Verified [...] 2 current occupational status: employed current occupation: [employer]: [employer] - [employer] Marcelo current occupational exposures/hazards: No pets and [...] times per week duration: < 15 minutes/day karo/lutheran: None seatbelt use: always do you feel safe at home: Yes additional social history: 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 Date Name GA/Weeks Outcome Route Bth Weight Infant Gen Labor Lgth Anesthesia Del Locat Provider FOB 05/10/18 Andreina 38 live - full term 6lb 1oz Female spinal [facility] 05/10/18 Stefania 38 live - full term 6lbs 5oz Female spin al [facility] 10/15/20 10 spontaneous Delivery Date: 05/10/18 Last Updated by: Laine Harden Twins; Breech/Breech Delivery Date: 05/10/18 Last Updated by: Laine Harden Twins; Breech/Breech Delivery Date: 10/15/20 Last Updated by: Hannah Mercado RN D C - [facility] HPI 13wk OB * Details: PATTY ALVAREZ [...] cr amp (more content not included)... Normal [facility] Urine Cultureon 08-08-2024 URC Below infection level. Mixed Gram Positive Organisms Hockley Count 1000-10,000 MIXC Mixed contaminants. Submit a new specimen if indicated. Normal [facility] Comment on above: Performed By: #### M 100.2200 #### [facility] Laboratory [address] [place], [address] Office Visit Reporton 2024 Office Visit Report [facility] [address] [place] [address] OFFICE VISIT Date of Service: 08/05/24 MR#: [id number] Acct: [id number] Patient: PATTY ALVAREZ Rep #: [id number] : 1995 Provider: ARAVIND Hernandez ams Age/Sex: 28/F Location: [facility] Status: Signed Intake Vital Signs 07/29/24 14:29 08/04/24 14:29 Height 5 ft 3 in 5 ft 3 in Weight: 270 lb 6 oz BMI 47.9 Intake Visit Reasons: rpt clean catch/culture per KW Chief Complaint: Spotting and cramping in early Jogger Operator Required: No Is patient in pain?: No Allergies Penicillins (PCN) Allergy (Verified 08/05/24 14:32) Rash Medications ???Medication ???Instructions ???Recorded ???Confirmed ???Type docosahexaenoic acid 200 mg mg PO 07/08/24 08/05/24 History capsule ( DHA) 08/08/24 1644 Date Ning Oquendo CNM Cosigner Signature: Date (if applicable) CC: Normal [facility] Urine cultureOrdered By: Lino Oquendo on 08-05-2024 Bacteria identified Cx Nom (U) Positive Abnormal [facility] Chlamydia/GC CUCO aptimaon CHLAMY,NUC ACID Negative Normal Negative [facility] Comment on above: Performed By: #### M 100.2200, L7000.1800 ####[facility] [id number] [place], [place], [address] GC BY NUC ACID Negative Normal Negative [facility] Comment on above: Result Comment: Perf ormed at: =G - [facility] [address] [id number] Seasoning Mixer: Tracie Mackenzie MD, Phone: [phone] Performed By: #### M 100.2200, L7000.1800 ####[facility] [address] [place], [address] Urine Cultureon 07-31-2024 URC Mixed Gram Positive Organisms Hockley Count 50,000-80,000 MIXC Mixed contaminants. Submit a new specimen if indicated. Normal [facility] Comment on above: Performed By: #### M 100.2200, L7000.1800 ####[facility] [address] [place], [address] Absolute lymphocyte countOrd ered By: Jenny So on 07-29-2024 Lymphocytes Auto (Unsp spec) [#/Vol] 1.78 10*3/uL 0.83-4.51 [facility] Absolute neutrophil countOrd ered By: Jenny So on 07-29-2024 Neutrophils (Bld) [#/Vol] 6.4 10*3/uL 2.0-7.7 [facility] Automated lymphocyte count a s percentage of total leukocytesOrdered By: Jenny So on 07-29-2024 Lymphocytes/100 WBC Auto (Unsp spec) 20.0 % 19-41 [facility] Basophil percentageOrdered B y: Jenny So on 07-29-2024 Basophils/100 WBC (Bld) 0.2 % 0-1 [facility] C. trachomatis rRNA CUCO+prob e Ql (Unsp spec)Ordered By: Jenny So on 07-29-2024 Chlamydia DNA (CUCO) Negative Negative [facility] CBC W/Diff, Automatedon 07-19 Absolute Lymph 1.78 X10 3/uL Normal 0.83-4.51 [facility] Comment on above: Performed By: #### L 509.8002, L3890.6102, L3890.6301, BTS, L3890.6006, L501.9985, L509.4006, L100.0100 ####[facility] [address] [place], [address] Absolute Neut 6.4 X10 3/uL Normal 2.0-7.7 [facility] Comment on above: Performed By: #### L 509.8002, L3890.6102, L3890.6301, BTS, L3890.6006, L501.9985, L509.4006, L100.0100 ####[facility] [address] [place], [address] Basophils/100 WBC (Bld) 0.2 % Normal 0-1 [facility] Comment on above: Performed By: #### L 509.8002, L3890.6102, L3890.6301, BTS, L3890.6006, L501.9985, L509.4006, L100.0100 ####[facility] [address] [place], [address] Eosinophils/100 WBC (Bld) 0.7 % Normal 0-5 [facility] Comment on above: Performed By: #### L 509.8002, L3890.6102, L3890.6301, BTS, L3890.6006, L501.9985, L509.4006, L100.0100 ####[facility] [facility] [address] [place], [address] Erythrocyte distribution width (RBC) [Ratio] 11.9 % Normal 11.6-14.6 [facility] Comment on above: Performed By: #### L 509.8002, L3890.6102, L3890.6301, BTS, L3890.6006, L501.9985, L509.4006, L100.0100 ####[facility] [address] [place], [address] Hematocrit (Bld) [Volume fraction] 39.7 % Normal 37-47 [facility] Comment on above: Performed By: #### L 509.8002, L3890.6102, L3890.6301, BTS, L3890.6006, L501.9985, L509.4006, L100.0100 ####[facility] [address] [place], [address] Hemoglobin (Bld) [Mass/Vol] 13.8 g/dL Normal 12.0-15.0 [facility] Comment on above: Performed By: #### L 509.8002, L3890.6102, L3890.6301, BTS, L3890.6006, L501.9985, L509.4006, L100.0100 ####[facility] [address] [place], [address] IG% 0.700 Normal 0.0-0.9 [facility] Comment on above: Result Comment: IG% - Immature Granulocytes (promyelocytes, myelocytes and metamyelocytes) > 1% indicates that a LEFT SHIFT is Present. Performed By: #### L 509.8002, L3890.6102, L3890.6301, BTS, L3890.6006, L501.9985, L509.4006, L100.0100 ####[facility] [address] [place], [address] Lymphocytes/100 WBC (Bld) 20.0 % Normal 19-41 [facility] Comment on above: Performed By: #### L 509.8002, L3890.6102, L3890.6301, BTS, L3890.6006, L501.9985, L509.4006, L100.0100 ####[facility] [address] [place], [address] MCH (RBC) [Entitic mass] 32.0 pg Normal 27.0-32.0 [facility] Comment on above: Performed By: #### L 509.8002, L3890.6102, L3890.6301, BTS, L3890.6006, L501.9985, L509.4006, L100.0100 ####[facility] [address] [place], [address] MCHC (RBC) [Mass/Vol] 34.8 g/dL Normal 32-[address] [facility] Comment on above: Performed By: #### L 509.8002, L3890.6102, L3890.6301, BTS, L3890.6006, L501.9985, L509.4006, L100.0100 ####[facility] [address] [place], [address] MCV (RBC) [Entitic vol] 92.1 fL Normal 81-99 [facility] Comment on above: Performed By: #### L 509.8002, L3890.6102, L3890.6301, BTS, L3890.6006, L501.9985, L509.4006, L100.0100 ####[facility] [address] [place], [address] Monocytes/100 WBC (Bld) 6.7 % Normal 0-10 [facility] Comment on above: Performed By: #### L 509.8002, L3890.6102, L3890.6301, BTS, L3890.6006, L501.9985, L509.4006, L100.0100 ####[facility] [address] [place], [address] Neutrophils/100 WBC (Bld) 71.7 % High 47-70 [facility] Comment on above: Performed By: #### L 509.8002, L3890.6102, L3890.6301, BTS, L3890.6006, L501.9985, L509.4006, L100.0100 ####[facility] [address] [place], [address] Nucleated RBC (Bld) [#/Vol] 0 10*3/uL Normal 0-5 [facility] Comment on above: Performed By: #### L 509.8002, L3890.6102, L3890.6301, BTS, L3890.6006, L501.9985, L509.4006, L100.0100 ####[facility] [address] [place], [address] Platelet mean volume (Bld) [Entitic vol] 12.2 fL High 6.2-12.0 [facility] Comment on above: Performed By: #### L 509.8002, L3890.6102, L3890.6301, BTS, L3890.6006, L501.9985, L509.4006, L100.0100 ####[facility] [address] [place], [address] Platelets (Bld) [#/Vol] 214 10*3/uL Normal 150-450 [facility] Comment on above: Performed By: #### L 509.8002, L3890.6102, L3890.6301, BTS, L3890.6006, L501.9985, L509.4006, L100.0100 ####[facility] [address] [place], [address] RBC (Bld) [#/Vol] 4.31 10*6/uL Normal 4.2-5.4 [facility] Comment on above: Performed By: #### L 509.8002, L3890.6102, L3890.6301, BTS, L3890.6006, L501.9985, L509.4006, L100.0100 ####[facility] [address] [place], [address] RDW SD 40.1 fl Normal 35.1-43.9 [facility] Comment on above: Performed By: #### L 509.8002, L3890.6102, L3890.6301, BTS, L3890.6006, L501.9985, L509.4006, L100.0100 ####[facility] [address] [place], [address] WBC (Bld) [#/Vol] 8.9 10*3/uL Normal 4.4-11.0 [facility] Comment on above: Performed By: #### L 509.8002, L3890.6102, L3890.6301, BTS, L3890.6006, L501.9985, L509.4006, L100.0100 ####[facility] [address] [place], [address] Chlamydia trachomatis rRNA d etection by probe and target amplification methodOrdered By: Jenny So on 07-29-2024 C. trachomatis rRNA CUCO+probe Ql (Unsp spec) Negative Negative [facility] Eosinophil percentageOrdered By: Jenny So on 07-29-2024 Eosinophils/100 WBC (Bld) 0.7 % 0-5 [facility] Erythrocyte distribution wid th (RBC) [Ratio]Ordered By: Jenny So on 07-29-2024 Erythrocyte distribution width (RBC) [Entitic vol] 40.1 fL 35.1-43.9 [facility] Erythrocyte distribution wid th ratioOrdered By: Jenny So on 07-29-2024 Erythrocyte distribution width (RBC) [Ratio] 11.9 % 11.6-14.6 [facility] Erythrocyte distribution wid th standard deviationOrdered By: Jennytay So on 07-29-2024 Erythrocyte distribution width (RBC) [Ratio] 40.1 fl 35.1-43.9 [facility] HBV surface Ag Ql (S)Ordered By: Jenny So on 07-29-2024 Hepatitis B Surface Antigen Non-Reactive Nonreactive [facility] Comment on above: Reactive: Presumptiv e evidence of HBV. Repeatedly reactive samples must be confirmed using a neutralization test ([employer] HBsAg Confirmatory Test)Non-Reactive: HBsAg not detected; does not exclude the possibility of exposure to HBV HIVon 07-29-2024 HIV Non-Reactive Normal Nonreactive [facility] Comment on above: Result Comment: Non- Reactive Reactive Repeatedly reactive samples must be confirmed according to CDC recommended confirmatory algorithms. The subresults for either HIVAG or AHIV can be used as an aid in the selection of the confirmation algorithm for reactive samples. Send out specimens with Reactive results to [facility] for confirmation. Order the HIV antibody detection and differentiation: lc#[id number] Performed By: #### L 509.8002, L3890.6102, L3890.6301, BTS, L3890.6006, L501.9985, L509.4006, L100.0100 ####[facility] [address] [place], [place], [address] Hematocrit Auto (Bld) [Volum e fraction]Ordered By: Jenny So on 07-29-2024 Hematocrit (Bld) [Volume fraction] 39.7 % 37-47 [facility] Hemoglobin A1con 07-29-2024 HbA1c (Bld) [Mass fraction] 4.9 % Normal <=5.6 [facility] Comment on above: Result Comment: Norm al < 5.7 % Prediabetic 5.7 - 6.4 % Diabetic >or= 6.5 % Please note range changes. Performed By: #### L 509.8002, L3890.6102, L3890.6301, BTS, L3890.6006, L501.9985, L509.4006, L100.0100 ####[facility] [address] [place], [place], [address] Hemoglobin A1c percentageOrd ered By: Jenny So on 07-29-2024 HbA1c (Bld) [Mass fraction] 4.9 % <5.7 [facility] Comment on above: Normal < 5.7 % Predi abetic 5.7 - 6.4 % Diabetic >or= 6.5 % Please note range changes. Hemoglobin measurementOrdere d By: Jenny So on 07-29-2024 Hemoglobin (Bld) [Mass/Vol] 13.8 g/dL 12.0-15.0 [facility] Hepatitis C Antibodyon 07-29 Hepatitis C Ab Non-Reactive Normal Nonreactive [facility] Comment on above: Result Comment: Reac tive: Presumptive evidence of antibodies to HCV. Follow CDC recommendations for supplemental testing. Non-Reactive: Antibodies to HCV were not detected; does not exclude the possibility of exposure to HCV Reactive Results are presumptive evidence of antibodies to HCV. Follow CDC recommendations for supplemental testing. Order confirmation testing: HCV Quant by PCR testing - HCVPCR #[id number] Non Reactive: < 0.8 Equivocal: >/= 0.8 to < 1.0 Reactive: >/= 1.0 The CDC requires that a reactive/equivocal HCV antibody result be sent out for confirmation. HCV Quant by PCR testing. Performed By: #### L 509.8002, L3890.6102, L3890.6301, BTS, L3890.6006, L501.9985, L509.4006, L100.0100 ####[facility] [address] [place], [place], [address] Hepatitis C antibodyOrdered By: Jenny So on 07-29-2024 Hepatitis C Antibody Non-Reactive Nonreactive [facility] Comment on above: Reactive: Presumptiv e evidence of antibodies to HCV. Follow CDC recommendations for supplemental testing.Non-Reactive: Antibodies to HCV were not detected; does not exclude the possibility of exposure to HCVReactive Results are presumptive evidence of antibodies to HCV. Follow CDC recommendations for supplemental testing.Order confirmation testing: HCV Quant by PCR testing - HCVPCR #[id number] Non Reactive: < 0.8 Equivocal: >/= 0.8 to < 1.0 Reactive: >/= 1.0The CDC requires that a reactive/equivocal HCV antibody result be sent out for confirmation. HCV Quant by PCR testing. Immature granulocytes/100 WB C Auto (Bld)Ordered By: Jenny So on 07-29-2024 Immature granulocytes/100 WBC (Bld) 0.700 % 0.0-0.9 [facility] Comment on above: IG% - Immature Granu locytes (promyelocytes, myelocytes and metamyelocytes) > 1% indicates that a LEFT SHIFT is Present. L3890.6102on 07-29-2024 HEP B Surf Ag Non-Reactive Normal Nonreactive [facility] Comment on above: Result Comment: Reac tive: Presumptive evidence of HBV. Repeatedly reactive samples must be confirmed using a neutralization test ([employer] HBsAg Confirmatory Test) Non-Reactive: HBsAg not detected; does not exclude the possibility of exposure to HBV Performed By: #### L 509.8002, L3890.6102, L3890.6301, BTS, L3890.6006, L501.9985, L509.4006, L100.0100 ####[facility] [address] [place], [place], [address] L509.4006on 07-29-2024 Rubella IgG REAC Normal Nonreactive [facility] Comment on above: Result Comment: Anti body Result: Interpretation Non-Reactive: Non-Immune Reactive: Immune The following results were obtained with the [employer] Rubella IgG assay. Results from assays of other manufacturers cannot be used interchangeably. Performed By: #### L 509.8002, L3890.6102, L3890.6301, BTS, L3890.6006, L501.9985, L509.4006, L100.0100 ####[facility] [address] [facility] [place], [place], [id number] Laboratory - Microbiology an d Antimicrobial susceptibilityOrdered By: Jenny So on 07-29-2024 HBV surface Ag Ql (S) Non-Reactive Nonreactive [facility] Comment on above: Reactive: Presumptiv e evidence of HBV. Repeatedly reactive samples must be confirmed using a neutralization test ([employer] HBsAg Confirmatory Test)Non-Reactive: HBsAg not detected; does not exclude the possibility of exposure to HBV Lymphocytes Auto (Unsp spec) [#/Vol]Ordered By: Jenny So on 07-29-2024 Lymphocytes (Bld) [#/Vol] 1.78 10*3/uL 0.83-4.5 1 [facility] Lymphocytes/100 WBC Auto (Un sp spec)Ordered By: Jenny So on 07-29-2024 Lymphocytes/100 WBC (Bld) 20.0 % 19-41 [facility] MCV (mean corpuscular volume ) determinationOrdered By: Jenny So on 07-29-2024 MCV (RBC) [Entitic vol] 92.1 fL 81-99 [facility] Mean corpuscular hemoglobin (MCH) determinationOrdered By: Jenny So on 07-29-2024 MCH (RBC) [Entitic mass] 32.0 pg 27.0-32.0 [facility] Mean corpuscular hemoglobin concentration (MCHC) determinationOrdered By: Jenny So on 07-29-2024 MCHC (RBC) [Mass/Vol] 34.8 g/dL 32-[address] [facility] Mean platelet volume determi nationOrdered By: Jenny So on 07-29-2024 Platelet mean volume (Bld) [Entitic vol] 12.2 fL High 6.2-12.0 [facility] Monocyte percentageOrdered B y: Jenny So on 07-29-2024 Monocytes/100 WBC (Bld) 6.7 % 0-10 [facility] Neisseria gonorrhoeae nuclei c acid detection by amplified probe techniqueOrdered By: Jenny So on 07-29-2024 N. gonorrhoeae DNA CUCO+probe Ql (Unsp spec) Negative Negative [facility] Comment on above: Performed at: =[address] [id number] Director: Tracie Mackenzie MD, Phone: [phone] Neutrophil percentageOrdered By: Jenny So on 07-29-2024 Neutrophils/100 WBC (Bld) 71.7 % High 47-70 [facility] No Panel InformationOrdered By: Jenny So on 07-29-2024 HIV (1&2) Antibody Non-Reactive Nonreactive [facility] Comment on above: Non-ReactiveReactive Repeatedly reactive samples must be confirmed according to CDC recommended confirmatory algorithms. The subresults for either HIVAG or AHIV can be used as an aid in the selection of the confirmation algorithm for reactive samples.Send out specimens with Reactive results to [facility] for confirmation.Order the HIV antibody detection and differentiation: #[id number] Nucleated red blood cell per centageOrdered By: Jenny So on 07-29-2024 Nucleated RBC/100 WBC (Bld) [Ratio] 0 % 0-5 [facility] Contact Worker Office Visit Reporton 07-29-2024 Contact Worker Office Visit Report [facility] [address], [address] [place] [address] OFFICE VISIT Date of Service: 07/29/24 MR#: [id number] Acct: [id number] Name: PATTY ALVAREZ Rep #: [id number] : 1995 Provider: ARAVIND gan Age/Sex: 28/F Location: [facility] Status: Signed Intake Vital Signs 06/08/24 08:58 07/01/24 13:27 07/21/24 09:52 07/29/24 14:25 07/29/24 14:29 Height 5 ft 3 in 5 ft 3 in 5 ft 3 in 5 ft 3 in 5 ft 3 in Weight: 269 lb 4 oz BMI 47.7 BP 125/81 H Intake Visit Reasons: New OB, LMP 2/2, LITA 02/26 Jogger Operator Required: No Is patient in pain?: No [...] 2 current occupational status: employed 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: No [...] times per week duration: < 15 minutes/day karo/lutheran: None seatbelt use: always do you feel [...] term 6lb 1oz Female spinal Wo femi [facility] Manuel 05/10/18 Stefania 38 live - full term 6lbs 5oz Female spin al [facility] Amee Schaffer 10/15/20 10 spontaneous Delivery Date: 05/10/18 Last Updated by: Laine Harden Twins; Breech/Breech Delivery Date: 05/10/18 Last Updated by: Laien Harden Twins; Breech/Breech Delivery Date: 10/15/20 Last Updated by: MICH Cervantes [facility] - [facility] HPI New OB, LMP 05/22, LITA 02/26 [...] LMP: defini (more content not included)... Normal [facility] Platelet countOrdered By: Neena So on 07-29-2024 Platelets (Bld) [#/Vol] 214 10*3/uL 150-450 [facility] RBC Auto (Bld) [#/Vol]Ordere d By: Jenny So on 07-29-2024 RBC (Bld) [#/Vol] 4.31 10*6/uL 4.2-5.4 [facility] Rubella immune status determ ination by IgG antibody assayOrdered By: Jenny So on 07-29-2024 Rubella IgG Antibody REAC Nonreactive [facility] Comment on above: Antibody Result: Int erpretationNon-Reactive: Non-ImmuneReactive: ImmuneThe following results were obtained with the [employer] Rubella IgG assay. Results from assays of other manufacturers cannot be used interchangeably. Syphilis Antibodieson 2024 Syphilis Abs Non-Reactive Normal Nonreactive [facility] Comment on above: Performed By: #### L 509.8002, L3890.6102, L3890.6301, BTS, L3890.6006, L501.9985, L509.4006, L100.0100 ####[facility] [address] [place], [address] T. pallidum abOrdered By: Neena So on 07-29-2024 Syphilis Total Antibody Non-Reactive Nonreactiv e [facility] Type AND Screenon 07-29-2024 Ab SCREEN GEL Negative Normal [facility] Comment on above: Order Comment: PN Performed By: #### L 509.8002, L3890.6102, L3890.6301, BTS, L3890.6006, L501.9985, L509.4006, L100.0100 ####[facility] [address] [place], [address] Urine cultureOrdered By: Carla So on 07-29-2024 Bacteria identified Cx Nom (U) Positive Abnormal [facility] White blood cell (WBC) count Ordered By: Jenny So on 07-29-2024 WBC (Bld) [#/Vol] 8.9 10*3/uL 4.4-11.0 [facility] Contact Worker Office Visit Reporton 07-21-2024 Contact Worker Office Visit Report [facility]'s [address], [address] [place] [address] OFFICE VISIT Date of Service: 07/21/24 MR#: [id number] Acct: [id number] Name: PATTY ALVAREZ Rep #: [id number] : 1995 Provider: ARAVIND Hernandez ams Age/Sex: 28/F Location: [facility] Status: Signed Intake Vital Signs 07/01/24 13:27 07/21/24 09:52 Height 5 ft 3 in 5 ft 3 in Weight: 270 lb 4 oz BMI 47.8 BP 122/79 H Intake Visit Reasons: spotting in early Chief Complaint: Spotting and cramping in early Jogger Operator Required: No Is patient in pain?: Yes [...] 2 current occupational status: employed 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: No [...] times per week duration: < 15 minutes/day karo/lutheran: None seatbelt use: always do you feel [...] full term 6lb 1oz Female spinal Wo [facility] Amee Schaffer 05/10/18 Stefania 38 live - full term 6lbs 5oz Female spin al [facility] Amee Schaffer 10/15/20 10 spontaneous Delivery Date: 05/10/18 Last Updated by: Laine Harden Twins; Breech/Breech Delivery Date: 05/10/18 Last Updated by: Laine Harden Twins; Breech/Breech Delivery Date: 10/15/20 Last Updated by: Hannah Mercado RN D [facility] ROS Const Constitutional: Reports system reviewed and [...] to inspec (more content not included)... Normal [facility] Contact Worker Office Visit Reporton 06-08-2024 Contact Worker Office Visit Report [facility]'s [address], [address] [place] [address] OFFICE VISIT Date of Service: 06/08/24 MR#: [id number] Acct: [id number] Name: PATTY ALVAREZ Rep #: [id number] : 1995 Provider: GAVIN Armijo Age/Sex: 28/F Location: [facility] Status: Signed Intake Vital Signs 06/03/23 14:43 06/08/24 08:58 06/08/24 08:58 Height 5 ft 3 in 5 ft 3 in 5 ft 3 in Weight: 265 lb BMI 46.9 BP 127/81 H Intake Visit Reasons: 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) Jogger Operator Required: No Is patient in pain?: No [...] 2 current occupational status: employed current occupation: [employer] Smoking Status: Never smoker alcohol intake: never substance use type: does not use caffeine: No what type of physical activity do you participate in: walking frequency: 1-2 times per week seatbelt use: always do you feel safe at home: Yes additional social history: Boyfriend Joe-supervisor [employer] Patient works at [employer] History 2 Elective abortions Hx Para 2 Spontaneous abortions Hx # Term Pregnancies 2 Ectopic pregnancies Hx # Pregnancies Multiple births 1 # of living children 2 Past Pregnancies Del. Date Name GA/Weeks Outcome Route Bth Weight Gen Labor Lgth Anesthesia Del Locatn Provider FOB 05/10/18 Andreina 38 live - full term 6lb 1oz Female spinal Wo [facility] Amee Schaffer 05/10/18 Stefania 38 live - full term 6lbs 5oz Female spin al [facility] Manuel Delivery Date: 05/10/18 Last Updated [...] the breast (more content not included)... Normal [facility] PREG SERUM QUANTon 4 HCG QUANTITATIVE <1 Normal 0 - 6 [facility] Comment on above: Result Comment: [...] 3RD TRIMESTER 1000-50,000 Performed By: #### 2 [id number] #### Doug [facility],[address] [place] [address] Chlamydia trachomatis rRNA d etection by probe and target amplification methodOrdered By: Bessie Mansfield on 06-03-2023 C. trachomatis rRNA CUCO+probe Ql (Unsp spec) Negative Negative [facility] Gram stain for investigation of transfusion reactionOrdered By: Bessie Mansfield on 06-03-2023 Microscopic observation Gram stain Nom (Unsp spec) [facility] Laboratory - Microbiology an d Antimicrobial susceptibilityOrdered By: Bessie Mansfield on 06-03-2023 N. gonorrhoeae DNA CUCO+probe Ql (Unsp spec) Negative Negative [facility] Comment on above: Performed at: [address] [id number] Director: Tracie Mackenzie MD, Phone: [phone] No Panel InformationOrdered By: Bessie Mansfield on 06-03-2023 Genital Culture Izzy spp [facility] No Panel Informationon 06-03 POC Bacterial Vaginitis (Rapid) Negative [facility] POC Trichomonas (Rapid) Negative [facility] Basophil percentageOrdered B y: Jenny So on 04-15-2023 Testosterone [Mass/Vol] 35 ng/dL 13-[address] [facility] Comment on above: Verified by repeat analysis Free testosterone percentage Ordered By: Jenny So on 04-15-2023 Testosterone Free/Testosterone.total [Mass fraction] 2.03 % 0.50-2.80 [facility] Laboratory - Chemistry and C hemistry - challengeOrdered By: Jenny So on 04-15-2023 Free T4 [Mass/Vol] 1.21 ng/dL 0.76-1.46 [facility] No Panel InformationOrdered By: Jenny So on 04-15-2023 Miscellaneous Test See comment [facility] Comment on above: Sent directly to abbe ting facility per ordering physician. Dehydroepiandrosterone Sulfate 292.0 ug/dL 84.8-378.0 [facility] Comment on above: Performed at: - [employer] [address] [id number] Director: Herminio Nash PhD, Phone: [phone] at: - [facility] [address] [id number] Director: Chris Hernandez MD, Phone: [phone] Free Triiodothyronine (T3) pg/dL 3.2 pg/mL 2.18-3.98 [facility] Thyroid Stimulating Hormone (TSH) 1.14 uIU/mL 0.358-3.74 [facility] Serum or plasma 17-hydroxypr ogesterone measurement (mass/volume)Ordered By: Jenny So on 04-15-2023 17-Hydroxyprogesterone [Mass/Vol] 40 ng/dL . [facility] Comment on above: Adult Female Follicu lar 15 - 70 Luteal 35 - 290 Serum or plasma calcitriol m easurement (mass/volume)Ordered By: Jenny So on 04-15-2023 1,25-dihydroxyvitamin D3 [Mass/Vol] 46.0 pg/mL 24.8-81.5 [facility] Comment on above: Performed at: [employer] [address] [id number] Director: Chris Hernandez MD, Phone: [phone] Serum or plasma testosterone free measurement (mass/volume)Ordered By: Jenny So on 04-15-2023 Testosterone Free [Mass/Vol] 0.71 ng/dL 0.10-0.85 [facility] Whole blood hemoglobin A1c/t otal hemoglobin ratio (mass fraction)Ordered By: Jenny So on 04-15-2023 HbA1c (Bld) [Mass fraction] 4.7 % 3.8-5.6 [facility] Comment on above: Normal < 5.7 % Predi abetic 5.7 - 6.4 % Diabetic >or= 6.5 % Please note range changes. Cervical or vagninal specime n microscopic examination by cytology stain (reported asOrdered By: Jenny So on 03-25-2023 Cytology report Cyto stain Doc (Cvx/Vag) Comment . [facility] Comment on above: The Pap smear [...] rRNA CUCO+probe Ql (Unsp spec) Negative Negative [facility] Laboratory - CytologyOrdered By: Jenny So on 03-25-2023 Nipping Machine Operator Cyto stain Nom (Cvx/Vag) [ID] Comment . [facility] Comment on above: Porsha Valentine, Tire Fabric Inspector (ASCP) Laboratory - Microbiology an d Antimicrobial susceptibilityOrdered By: Jenny So on 03-25-2023 N. gonorrhoeae DNA CUCO+probe Ql (Unsp spec) Negative Negative [facility] Comment on above: Performed at: =G - [facility] [address] [id number] Director: Tracie Mackenzie MD, Phone: [phone] Laboratory - Miscellaneous t estsOrdered By: Jenny So on 03-25-2023 Service comment (Unsp spec) [Interp] Comment . [facility] Comment on above: This liquid based Th inPrep(R) pap test was screened withthe use of an image guided system. Service comment (Unsp spec) [Interp] . . [facility] No Panel InformationOrdered By: Jenny So on 03-25-2023 Human Papillomavirus Screen Comment . [facility] Comment on above: The HPV DNA reflex c riteria were not met with this specimenresult therefore, no HPV testing was performed.Performed at: [facility] - [facility] [address] [id number] Director: Tracie Mackenzie MD, Phone: [phone] Pathology report final diagnosis Narrative Comment . [facility] Comment on above: NEGATIVE FOR INTRAEP ITHELIAL LESION OR MALIGNANCY. Varicella Zoster IgGon 03-25 V. zoster IgG, Qual Positive Abnormal Negative [facility] Comment on above: Performed By: #### V ZVG2 #### [facility] [place] [facility] Routine Lab [address], [place] [id number] Varicella Zoster IgG 269.7 Index Value Normal [facility] [place] [facility] Comment on above: Performed By: #### V ZVG2 #### [facility] [place] [facility] Routine Lab [address], [place] [id number] Laboratory - Chemistry and C hemistry - challengeon 11-21-2020 Bilirubin Ql (U) Negative Normal [employer]. Ketones Ql (U) Negative Normal [employer].; [employer]. pH (U) 5.5 [pH] Normal [employer].; [employer]. Specific gravity (U) [Rel density] >=1.030 Normal [employer].; [employer]. Urobilinogen Qn (U) 0.2 e.u./dL Normal [facility] [employer]. Laboratory - Hematology and Cell countson 11-21-2020 Hemoglobin Ql (U) small Abnormal [employer].; [employer]. Laboratory - Specimen inform ationon 11-21-2020 Appearance (U) clear Normal [facility] [employer].; [employer]. Color (U) dark Yellow Normal [employer].; [employer]. Laboratory - Urinalysison Glucose Test strip (U) [Mass/Vol] Negative Normal [employer].; [employer]. Leukocyte esterase Test strip Ql (U) trace Normal [employer].; [employer]. Nitrite Ql (U) Negative Normal [employer].; [employer]. Protein Ql (U) Negative Normal [facility] [employer].; [employer]. Laboratory - Chemistry and C hemistry - challengeon 2018 Albumin [Mass/Vol] 4.2 g/dL Normal 3.6 - 5.1 g/dL [facility], [facility]. Albumin/Globulin [Mass ratio] 1.5 {ratio} Normal 1.0 - 2.5 [facility]; [facility] ALP [Catalytic activity/Vol] 112 U/L Normal 33 - 115 U/L [facility].; [facility] ALT [Catalytic activity/Vol] 28 U/L Normal 6 - 29 U/L [facility].; [facility] AST [Catalytic activity/Vol] 17 U/L Normal 10 - 30 U/L [facility]; [facility], [facility] Bilirubin [Mass/Vol] 0.3 mg/dL Normal 0.2 - 1 .2 mg/dL [facility]; [facility], [facility] Calcium [Mass/Vol] 9.3 mg/dL Normal 8.6 - 10. 2 mg/dL [facility]; [facility] Chloride [Moles/Vol] 104 mmol/L Normal 98 - 11 0 mmol/L [facility]; [facility], [facility] CO2 [Moles/Vol] 25 mmol/L Normal 20 - 32 mmol/L [facility]; [facility] Creatinine [Mass/Vol] 0.59 mg/dL Normal 0.50 - 1.10 mg/dL [facility].; [facility], [facility] Free T3 [Mass/Vol] 3.8 pg/mL Normal 2.3 - 4.2 pg/mL [facility].; [facility], [facility] Free T4 [Mass/Vol] 0.9 ng/dL Normal 0.8 - 1.8 ng/dL [facility].; [facility], [facility]. GFR/1.73 sq M.predicted among blacks MDRD (S/P/Bld) [Vol rate/Area] 152 {ML/MIN/1.73M2} Normal [facility], [facility] GFR/1.73 sq M.predicted MDRD (S/P/Bld) [Vol rate/Area] 131 {ML/MIN/1.73M2} Normal [facility]; [facility], [facility] Globulin (S) [Mass/Vol] 2.9 g/dL Normal 1.9 - 3.7 g/ dL [facility]; [facility], [facility] Glucose [Mass/Vol] 102 mg/dL Abnormal 65 - 99 mg/dL [facility].; [facility], [facility] Potassium [Moles/Vol] 3.7 mmol/L Normal 3.5 - 5.3 mmol/L [facility]; [facility], [facility] Protein [Mass/Vol] 7.1 g/dL Normal 6.1 - 8.1 g/dL [facility]; [facility], [facility] Sodium [Moles/Vol] 138 mmol/L Normal 135 - 146 mmol/L [facility]; [facility], [facility] TSH Qn 1.38 m[IU]/L Normal 0.40 - 4.50 {mIU/L} [facility]; [facility], [facility] Urea nitrogen [Mass/Vol] 15 mg/dL Normal 7 - 25 mg/d L [facility]; [facility], [facility] Urea nitrogen/Creatinine [Mass ratio] 25.4 mg/mg Abnormal 6 - 22 [facility]; [facility], [facility] Laboratory - Hematology and Cell countson 2018 Basophils (Bld) [#/Vol] 30 {Cells}/uL Normal 0 - 200 {Cells}/uL [facility]; [facility], [facility] Basophils/100 WBC (Bld) 0.3 % Normal 0 - 1 % H [facility]; [facility], [facility] Eosinophils (Bld) [#/Vol] 210 {Cells}/uL Normal 15 - 500 {Cells}/uL [facility].; [facility], [facility] Eosinophils/100 WBC (Bld) 2.1 % Normal 0 - 4 % [facility]; [facility], [facility] Erythrocyte distribution width (RBC) [Ratio] 14.7 % Normal 11.0 - 15.0 % [facility]; [facility] HbA1c (Bld) [Mass fraction] 5.3 % Normal 0 - 5.6 % [facility].; [facility], [facility] Hematocrit (Bld) [Volume fraction] 41.1 % Normal 35.0 - 45.0 % [facility], [facility].; [facility] Hemoglobin (Bld) [Mass/Vol] 13.6 g/dL Normal 11.7 - 15.5 g/dL [facility].; [facility], [facility] Lymphocytes (Bld) [#/Vol] 2600 {Cells}/uL Normal 850 - 3900 {Cells}/uL [facility].; [facility], [facility]. Lymphocytes/100 WBC (Bld) 26.5 % Normal 12 - 47 % [facility].; [facility], [facility]. MCH (RBC) [Entitic mass] 28.7 pg Normal 27.0 - 33.0 PG [facility].; [facility], [facility]. MCHC (RBC) [Mass/Vol] 33.1 g/dL Normal 32.0 - 36.0 g/dL [facility].; [facility], [facility]. MCV (RBC) [Entitic vol] 86.7 fL Normal 80.0 - 100.0 fL [facility].; [facility], [facility]. Monocytes (Bld) [#/Vol] 770 {Cells}/uL Normal 20 0 - 950 {Cells}/uL [facility].; [facility], [facility]. Monocytes/100 WBC (Bld) 7.8 % Normal 4 - 12 % [facility].; [facility], [facility]. Neutrophils (Bld) [#/Vol] 6210 {Cells}/uL Normal 1500 - 7800 {Cells}/uL [facility].; [facility], [facility]. Neutrophils/100 WBC (Bld) 63.3 % Normal 40 - 75 % [facility], [facility].; [facility], [facility]. Platelet mean volume (Bld) [Entitic vol] 11.9 fL Normal 7.5 - 12.5 fL [facility].; [facility], [facility]. Platelets (Bld) [#/Vol] 274 10*3/uL Normal 140 - 400 10*3/uL [facility].; [employer] [facility]. RBC (Bld) [#/Vol] 4.74 10*6/uL Normal 3.80 - 5.1 0 10*6/uL [facility].; [employer]. WBC (Bld) [#/Vol] 9.8 10*3/uL Normal 3.8 - 10.8 10*3/uL [employer].; [employer]. Final Surgical Pathology Rep luis 10-20-2018 Final Surgical Pathology Report . Pathology Reports Accession: Collected Date/Time: Received Date/Time: Pathologist: [id number] 10/15/2018 08:12 EDT 10/18/2018 08:12 EDT MD JAYLENE ABREU Final Surgical Pathology Report DIAGNOSIS: GALLBLADDER, CHOLECYSTECTOMY - - CHOLELITHIASIS. - CHRONIC CHOLECYSTITIS. COMMENT: [facility] A# [id number] CLINICAL INFORMATION: BILIARY COLIC SPECIMEN: A GALLBLADDER [...] thickness. RS -1 Dictated by Germaine GILES ([facility]) MICROSCOPIC DESCRIPTION: Slides reviewed. Electronically Signed by Pathology Report verified by [facility] Electronically signed by JAYLENE ABREU MD Sign out Date: 10/20/2018 08:43 Performing Lab: [facility], [address] [place] [address] ([place]) Comment on above: Performed By: #### S PFR #### [place] [id number] Progress Noteon 04-14-2018 Resident Inspector Authentication Interface Message Text Patty Alvarez is here for consultation at the request of Louise Moon PA-C for: Fluid In Kidney ([place] [employer] Core Feeder/Fetus A dialated kidney) History of Presenting Problem: Due 05/24 at [facility]. Baby A with dilated kidney and ureter. 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 Consent to share information with [facility] team, OB and residential program manager signed. Pt plans to deliver at [facility] with Dr. Schaffer. Strip Machine Operator is [place] [facility]. Female fetus- names are Andreina and Stefania [...] spent counseling and coordinating care. Normal [facility] Resident Inspector Authentication Interface Message Text Patient was seen by [facility] due to unilateral UTDA2-3 (pyelectasis and hydroureter). The total patient time of the visit was 15 minutes, of which greater than 50% of the time was spent counseling and coordinating care. Normal [facility] Progress Noteon 01-11-2018 Resident Inspector Authentication Interface Message Text [facility] MATERNAL- MEDICINE CONSULT Referring/Requestin eliza Provider: Amee Schaffer MD PCP: Amanda Primary [...] MEDS: Current Outpatient Prescriptions Medication Sig Vit w/Gk-Vbamnyedl-OL (PNV PO) Take 1 Tab by mouth [...] coordinating care. Sharan Jeffrey DO Normal [facility] Laboratory - Chemistry and C hemistry - challengeon 06-24-2017 Bilirubin Ql (U) small Abnormal [facility].; [facility], [place]. Ketones Ql (U) Negative Normal [facility].; [facility] [facility] pH (U) 5.5 [pH] Normal [facility], [facility].; [facility] [facility] Specific gravity (U) [Rel density] 1.030 Abnormal [facility], [facility].; [facility] Urobilinogen Qn (U) 8 mg/dL Abnormal [facility], [facility].; [facility] Laboratory - Hematology and Cell countson 06-24-2017 Hemoglobin Ql (U) Negative Normal [facility], [facility].; [facility], [place]. Laboratory - Microbiology an d Antimicrobial susceptibilityon 06-24-2017 Bacteria identified Cx Nom (U) Normal [facility], [facility].; [employer], [place]. Laboratory - Specimen inform ationon 06-24-2017 Appearance (U) cloudy Abnormal [facility], [facility].; [employer]. Color (U) yellow Normal [facility]; [facility] Specimen source Nom (Unsp spec) URINE-CLEAN CATCH Normal [facility]; [facility]. Laboratory - Urinalysison Glucose Test strip (U) [Mass/Vol] Negative Normal [facility].; [employer] [facility] Leukocyte esterase Test strip Ql (U) Negative Normal [facility].; [facility] [employer] Nitrite Ql (U) Negative Normal [facility].; [employer] Protein Ql (U) Negative Normal [facility].; [employer]. Laboratory - Chemistry and C hemistry - challengeon 02-24-2017 Free T3 [Mass/Vol] 3.7 pg/mL Normal 3.0 - 4.7 pg/mL [facility]; [facility] Free T4 [Mass/Vol] 1.2 ng/dL Normal 0.8 - 1.4 ng/dL [facility].; [employer]. TSH Qn 0.94 m[IU]/L Normal 0.40 - 4.50 {mIU/L} [facility].; [employer]. Laboratory - Serology - non- microon 02-24-2017 TPO Ab Qn 1 [IU]/mL Normal [facility].; [employer]. Laboratory - Microbiology an d Antimicrobial susceptibilityon 10-16-2016 S. pyogenes Ag EIA Ql (Throat) Negative Normal [facility].; [employer]. No Panel Informationon 10-16 MONOSPOT TEST (IN HOUSE) Negative Normal [facility] [employer].; [employer]. Laboratory - Chemistry and C hemistry - challengeon 07-14-2016 Beta HCG ( test) Ql (U) Negative Normal [facility] [employer] [facility].; [employer]. Laboratory - Microbiology an d Antimicrobial susceptibilityon 07-14-2016 C. trachomatis rRNA CUCO+probe Ql (Unsp spec) Not detected Normal [facility] [employer] [facility]; [employer]. N. gonorrhoeae rRNA CUCO+probe Ql (Unsp spec) Not detected Normal [facility]; [employer] Laboratory - Chemistry and C hemistry - challengeon 04-09-2016 HCG.beta subunit Qn m[IU]/mL Normal [facility].; [employer] Laboratory - Chemistry and C hemistry - challengeon 04-02-2016 Beta HCG ( test) Ql (U) Negative Normal [facility]; [employer] Laboratory - Microbiology an d Antimicrobial susceptibilityon 04-02-2016 C. trachomatis rRNA CUCO+probe Ql (Unsp spec) Detected Abnormal [facility]; [employer] N. gonorrhoeae rRNA CUCO+probe Ql (Unsp spec) Not detected Normal [facility]; [employer]. No Panel Informationon 12-02 SKIN TEST INTRADERMAL TB Negative Normal [facility]; [employer] No Panel Informationon 11-25 SKIN TEST INTRADERMAL TB Negative Normal [facility]; [employer]. Laboratory - Chemistry and C hemistry - challengeon 12-25-2011 Bilirubin Ql (U) Negative Normal [facility]; [employer] Ketones Ql (U) Negative Normal [facility].; [employer]. Lipase [Catalytic activity/Vol] 14 U/L Normal 7 - 60 U/L [facility].; [employer] pH (U) 5.0 [pH] Normal 4.6 - 8.0 [facility].; [employer]. Specific gravity (U) [Rel density] >=1.030 Normal 1.001 - 1.025 [facility]; [employer]. Laboratory - Hematology and Cell countson 12-25-2011 Basophils (Bld) [#/Vol] 50 {Cells}/uL Normal 0 - 200 {Cells}/uL [facility].; [employer]. Basophils/100 WBC (Bld) 0 % Normal 0 - 2 % H [facility]; [employer]. Eosinophils (Bld) [#/Vol] 550 {Cells}/uL Abnormal 15 - 500 {Cells}/uL [facility].; [facility] Eosinophils/100 WBC (Bld) 5 % Normal 0 - 6 % [facility].; [facility], [facility] Erythrocyte distribution width (RBC) [Ratio] 12.8 % Normal 11.0 - 15.0 % [facility].; [facility], [facility] Hematocrit (Bld) [Volume fraction] 42.3 % Normal 34.0 - 46.0 % [facility].; [facility], [facility] Hemoglobin (Bld) [Mass/Vol] 14.3 g/dL Normal 11.5 - 15.3 g/dL [facility].; [facility], [facility] Hemoglobin Ql (U) Negative Normal [facility]; [facility], [facility] Lymphocytes (Bld) [#/Vol] 2780 {Cells}/uL Normal 1200 - 5200 {Cells}/uL [facility].; [facility] Lymphocytes/100 WBC (Bld) 26 % Normal 20 - 60 % [facility].; [facility], [facility] MCH (RBC) [Entitic mass] 32.0 pg Normal 25.0 - 35.0 PG [facility].; [facility], [facility]. MCHC (RBC) [Mass/Vol] 33.7 g/dL Normal 31.0 - 36.0 g/dL [facility].; [facility], [facility]. MCV (RBC) [Entitic vol] 94.8 fL Normal 78.0 - 98.0 fL [facility].; [facility], [facility] Monocytes (Bld) [#/Vol] 970 {Cells}/uL Abnormal 20 0 - 900 {Cells}/uL [facility].; [facility], [facility]. Monocytes/100 WBC (Bld) 9 % Normal 0 - 10 % H [facility].; [facility], [facility] Neutrophils (Bld) [#/Vol] 6250 {Cells}/uL Normal 1800 - 8000 {Cells}/uL [facility] [employer].; [employer], [place]. Neutrophils/100 WBC (Bld) 59 % Normal 40 - 70 % [employer].; [employer] Platelets (Bld) [#/Vol] 239 10*3/uL Normal 140 - 400 10*3/uL [employer] RBC (Bld) [#/Vol] 4.46 10*6/uL Normal 3.80 - 5.1 0 10*6/uL [employer] WBC (Bld) [#/Vol] 10.6 10*3/uL Normal 4.5 - 13.0 10*3/uL [employer], [place]. Laboratory - Specimen inform ationon 12-25-2011 Appearance (U) Clear Normal [employer].; [employer] Color (U) Yellow Normal [employer].; [employer], [place]. Laboratory - Urinalysison Glucose Test strip (U) [Mass/Vol] Negative Normal [employer] Leukocyte esterase Test strip Ql (U) Negative Normal [employer].; [employer] Nitrite Ql (U) Negative Normal [employer].; [employer] Protein Ql (U) Negative Normal [employer].; [employer], [place]. No Panel Informationon 12-24 UA - UROBILINOGEN 0.2 mg/dL Normal [employer].; [employer], [place]. Vital Signs Date Time Vital Sign Value Performing Clinician Facility 01-25-2025 [id number] Body height 160.02 cm Kanjoya Work Phone: [facility] 01-25-2025 10:07-0400 Body mass index (BMI) [Ratio] 50.5 kg/m2 Kan[employer]a Work Phone: [facility] 01-25-2025 10:07-0400 Body weight 129.47 kg Kanjoya Work Phone: [facility] 01-25-2025 10:07-0400 Diastolic blood pressure 71 mm[Hg] Louise [place] PA-C Work Phone: [facility] 01-25-2025 10:07-0400 Systolic blood pressure 107 mm[Hg] Louise Timmons[place] PA-C Work Phone: [facility] 01-20-2025 14:26-0400 Body height 160.02 cm Louise Timmons[place] PA-C Work Phone: [facility] 01-20-2025 14:26-0400 Body mass index (BMI) [Ratio] 50.7 kg/m2 Louise Timmonsville PA-C Work Phone: [facility] 01-20-2025 14:26-0400 Body weight 129.84 kg Louise Timmons[place] PA-C Work Phone: [facility] 01-20-2025 14:26-0400 Diastolic blood pressure 69 mm[Hg] Louise Timmons[place] PA-C Work Phone: [facility] 01-20-2025 14:26-0400 Systolic blood pressure 108 mm[Hg] Louise Timmons[place] PA-C Work Phone: [facility] 01-06-2025 13:53-0400 Body height 160.02 cm Louise [place]mons[place] PA-C Work Phone: [facility] 01-06-2025 13:51-0400 Body mass index (BMI) [Ratio] 50.5 kg/m2 Oluise Timmonsville PA-C Work Phone: [facility] 01-06-2025 13:51-0400 Body weight 129.44 kg Louise [place]mons[place] PA-C Work Phone: [facility] 01-06-2025 13:51-0400 Diastolic blood pressure 72 mm[Hg] Louise Timmons[place] PA-C Work Phone: [facility] 01-06-2025 13:51-0400 Systolic blood pressure 112 mm[Hg] Louise Timmons[place] PA-C Work Phone: [facility] 01-01-2025 09:37-0400 Body height 160.02 cm Louise Jobster PA-C Work Phone: [facility] 01-01-2025 09:37-0400 Body mass index (BMI) [Ratio] 50.3 kg/m2 Louise Timmons[place] PA-C Work Phone: [facility] 01-01-2025 09:37-0400 Body weight 129 kg Louise Jobster PA-C Work Phone: [facility] 01-01-2025 09:13-0400 Body temperature 98.1 [degF] Louise Timmons[place] PA-C Work Phone: [facility] 01-01-2025 09:13-0400 Diastolic blood pressure 69 mm[Hg] Louise Timmons[place] PA-C Work Phone: [facility] 01-01-2025 09:13-0400 Heart rate 97 /min Louise Jobster PA-C Work Phone: [facility] 01-01-2025 09:13-0400 Respiratory rate 18 /min Louise Jobster PA-C Work Phone: [facility] 01-01-2025 09:13-0400 Systolic blood pressure 133 mm[Hg] Louise Timmons[place] PA-C Work Phone: [facility] 12-21-2024 10:25-0400 Body height 160.02 cm Louise Jobster PA-C Work Phone: [facility] 12-21-2024 10:23-0400 Body mass index (BMI) [Ratio] 50.2 kg/m2 Louise Timmonsville PA-C Work Phone: [facility] 12-21-2024 10:23-0400 Body weight 128.62 kg Louise Jobster PA-C Work Phone: [facility] 12-21-2024 10:23-0400 Diastolic blood pressure 70 mm[Hg] Louise Jobster PA-C Work Phone: [facility] 12-21-2024 10:23-0400 Systolic blood pressure 120 mm[Hg] Louise Timmons[place] PA-C Work Phone: [facility] 12-06-2024 15:34-0400 Body height 160.02 cm Louise Jobster PA-C Work Phone: [facility] 12-06-2024 15:34-0400 Body mass index (BMI) [Ratio] 49.8 kg/m2 Louise Jobster PA-C Work Phone: [facility] 12-06-2024 15:34-0400 Body weight 127.51 kg Louise Jobster PA-C Work Phone: [facility] 12-06-2024 15:34-0400 Diastolic blood pressure 72 mm[Hg] Louise Timmons[place] PA-C Work Phone: [facility] 12-06-2024 15:34-0400 Systolic blood pressure 126 mm[Hg] Louise Timmons[place] PA-C Work Phone: [facility] 11-15-2024 13:35-0400 Body height 160.02 cm Louise Jobster PA-C Work Phone: [facility] 11-15-2024 13:35-0400 Body mass index (BMI) [Ratio] 48.4 kg/m2 Louise Jobster PA-C Work Phone: [facility] 11-15-2024 13:35-0400 Body weight 124.05 kg Louise Jobster PA-C Work Phone: [facility] 11-15-2024 13:35-0400 Diastolic blood pressure 78 mm[Hg] Louise Timmons[place] PA-C Work Phone: [facility] 11-15-2024 13:35-0400 Systolic blood pressure 118 mm[Hg] Louise Timmons[place] PA-C Work Phone: [facility] 10-17-2024 15:36-0400 Body height 160.02 cm Louise Jobster PA-C Work Phone: [facility] 10-17-2024 15:36-0400 Body mass index (BMI) [Ratio] 49.3 kg/m2 Louise Timmons[place] PA-C Work Phone: [facility] 10-17-2024 15:36-0400 Body weight 126.21 kg Louise Timmons[place] PA-C Work Phone: [facility] 10-17-2024 15:36-0400 Diastolic blood pressure 74 mm[Hg] Louise Timmons[place] PA-C Work Phone: [facility] 10-17-2024 15:36-0400 Systolic blood pressure 120 mm[Hg] Louise Timmonsville PA-C Work Phone: [facility] 09-19-2024 14:11-0400 Body height 160.02 cm Louise Timmons[place] PA-C Work Phone: [facility] 09-19-2024 14:11-0400 Body mass index (BMI) [Ratio] 48.3 kg/m2 Louise Timmonsville PA-C Work Phone: [facility] 09-19-2024 14:11-0400 Body weight 123.83 kg Louise Timmonsville PA-C Work Phone: [facility] 09-19-2024 14:11-0400 Diastolic blood pressure 78 mm[Hg] Louise Timmonsville PA-C Work Phone: [facility] 09-19-2024 14:11-0400 Systolic blood pressure 122 mm[Hg] Louise Timmonsville PA-C Work Phone: [facility] 08-24-2024 14:44-0400 Body mass index (BMI) [Ratio] 47.7 kg/m2 Louise Timmonsville PA-C Work Phone: [facility] 08-24-2024 14:44-0400 Body weight 122.18 kg Louise Jobster PA-C Work Phone: [facility] 08-24-2024 14:44-0400 Diastolic blood pressure 84 mm[Hg] Louise Timmons[place] PA-C Work Phone: [facility] 08-24-2024 14:44-0400 Systolic blood pressure 125 mm[Hg] Louise Timmons[place] PA-C Work Phone: [facility] 08-04-2024 14:29-0400 Body height 160.02 cm Louise Timmonsville PA-C Work Phone: [facility] 08-04-2024 14:29-0400 Body mass index (BMI) [Ratio] 47.9 kg/m2 Louise Timmonsville PA-C Work Phone: [facility] 08-04-2024 14:29-0400 Body weight 122.64 kg Louise Timmons[place] PA-C Work Phone: [facility] 07-29-2024 14:29-0400 Body height 160.02 cm Louise Jobster PA-C Work Phone: [facility] 07-29-2024 14:25-0400 Body mass index (BMI) [Ratio] 47.7 kg/m2 Louise Timmons[place] PA-C Work Phone: [facility] 07-29-2024 14:25-0400 Body weight 122.12 kg Louise Timmons[place] PA-C Work Phone: [facility] 07-29-2024 14:25-0400 Diastolic blood pressure 81 mm[Hg] Louise Timmons[place] PA-C Work Phone: [facility] 07-29-2024 14:25-0400 Systolic blood pressure 125 mm[Hg] Louise Timmons[place] PA-C Work Phone: [facility] 07-21-2024 09:52-0400 Body mass index (BMI) [Ratio] 47.8 kg/m2 [employer] PA-C Work Phone: [facility] 07-21-2024 09:52-0400 Body weight 122.58 kg Louise Jobster PA-C Work Phone: [facility] 07-21-2024 09:52-0400 Diastolic blood pressure 79 mm[Hg] Louise Jobster PA-C Work Phone: [facility] 07-21-2024 09:52-0400 Systolic blood pressure 122 mm[Hg] Louise Jobster PA-C Work Phone: [facility] 06-08-2024 08:58-0500 Body mass index (BMI) [Ratio] 46.9 kg/m2 Louise Jobster PA-C Work Phone: [facility] 06-08-2024 08:58-0500 Body weight 120.2 kg Louise Jobster PA-C Work Phone: [facility] 06-08-2024 08:58-0500 Diastolic blood pressure 81 mm[Hg] Louise Jobster PA-C Work Phone: [facility] 06-08-2024 08:58-0500 Systolic blood pressure 127 mm[Hg] Louise Jobster PA-C Work Phone: [facility] 04-27-2024 09:50-0500 Body height 160.02 cm Ren Wright RN [facility], [facility].; [facility]. 04-27-2024 09:50-0500 Body mass index (BMI) [Ratio] 44.46 kg/m2 Ren Wright RN [facility], [facility].; [facility]. 04-27-2024 09:50-0500 Body surface area Derived from formula 2.13 m2 Ren Wright RN [facility], [facility].; [facility], [facility]. 04-27-2024 09:50-0500 Body weight 113.85 kg Ren Wright RN [employer]. 04-27-2024 09:50-0500 Diastolic blood pressure 76 mm[Hg] Ren Wright RN [employer]. Comment on above: Patient Position: Sitting; Cuff Location : Left Arm; Cuff Size: Large 04-27-2024 09:50-0500 Heart rate 86 /min Ren Wright RN [employer]. Comment on above: Pattern: Regular 04-27-2024 09:50-0500 Systolic blood pressure 115 mm[Hg] Ren Wright RN [employer]. Comment on above: Patient Position: Sitting; Cuff Location : Left Arm; Cuff Size: Large 12-22-2023 11:02-0400 Body height 160.02 cm Ren Wright RN [employer]. 12-22-2023 11:02-0400 Body mass index (BMI) [Ratio] 46.23 kg/m2 Ren Wright RN [facility] [employer].; [employer]. 12-22-2023 11:02-0400 Body surface area Derived from formula 2.17 m2 Ren Wright RN [facility] [employer].; [employer]. 12-22-2023 11:02-0400 Body weight 118.39 kg Ren Wright RN [employer]. 12-22-2023 11:02-0400 Diastolic blood pressure 81 mm[Hg] Ren Wright RN [employer]. Comment on above: Patient Position: Sitting; Cuff Location : Left Arm; Cuff Size: Standard 12-22-2023 11:02-0400 Heart rate 81 /min Ren Wright RN [employer]. Comment on above: Pattern: Regular 12-22-2023 11:02-0400 Systolic blood pressure 118 mm[Hg] Ren Wright RN [employer]. Comment on above: Patient Position: Sitting; Cuff Location : Left Arm; Cuff Size: Standard 08-24-2023 10:03-0400 Body height 160.02 cm Aracelis Dueñas LPN [facility], [facility].; [facility] 08-24-2023 10:03-0400 Body mass index (BMI) [Ratio] 44.29 kg/m2 Aracelis Dueñas LPN [facility].; [facility] 08-24-2023 10:03-0400 Body surface area Derived from formula 2.13 m2 Aracelis Dueñas LPN [facility].; [facility] 08-24-2023 10:030400 Body weight 113.4 kg Aracelis Dueñas LPN [facility].; [facility] 08-24-2023 10:03-0400 Diastolic blood pressure 74 mm[Hg] Aracelis Dueñas LPN [facility].; [facility]. Comment on above: Patient Position: Sitting; Cuff Location : Left Arm; Cuff Size: Standard 08-24-2023 10:03-0400 Heart rate 80 /min Aracelis Dueñas LPN [facility].; [facility], [facility]. Comment on above: Pattern: Regular 08-24-2023 10:03-0400 Systolic blood pressure 105 mm[Hg] Aracelis Dueñas LPN [facility], [facility].; [facility], [facility]. Comment on above: Patient Position: Sitting; Cuff Location : Left Arm; Cuff Size: Standard 06-03-2023 14:43-0500 Body height 160.02 cm PA-C [employer] Work Phone: [facility] 06-03-2023 14:43-0500 Body mass index (BMI) [Ratio] 48.2 kg/m2 PA-C [employer] PA Work Phone: [facility] 06-03-2023 14:43-0500 Body weight 123.43 kg PA-C [employer] PA Work Phone: [facility] 06-03-2023 14:43-0500 Diastolic blood pressure 82 mm[Hg] PA-C [employer] PA Work Phone: [facility] 06-03-2023 14:43-0500 Systolic blood pressure 132 mm[Hg] PA-C [employer] PA Work Phone: [facility] 04-27-2023 10:53-0500 Body height 160.02 cm [facility] 04-27-2023 10:53-0500 Body mass index (BMI) [Ratio] 50 kg/m2 Mary Haji MA [facility].; [facility]. 04-27-2023 10:53-0500 Body surface area Derived from formula 2.24 m2 Mary Haji MA [facility].; [facility]. 04-27-2023 10:53-0500 Body weight 128.03 kg Mary Haji MA [facility].; [facility]. 04-27-2023 10:53-0500 Diastolic blood pressure 84 mm[Hg] [facility] Comment on above: Patient Position: Sitting; Cuff Location : Left Arm; Cuff Size: Standard 04-27-2023 10:53-0500 Heart rate 88 /min [facility].; [facility]. Comment on above: Pattern: Regular 04-27-2023 10:53-0500 Systolic blood pressure 127 mm[Hg] [facility].; [facility]. Comment on above: Patient Position: Sitting; Cuff Location : Left Arm; Cuff Size: Standard 03-25-2023 09:39-0500 Body height 160.02 cm PA-C [employer] PA Work Phone: [facility] 03-25-2023 09:37-0500 Body mass index (BMI) [Ratio] 49.6 kg/m2 PA-C [employer] PA Work Phone: [facility] 03-25-2023 09:37-0500 Body weight 127 kg PA-C Louise Timmons[place] PA Work Phone: [facility] 03-25-2023 09:37-0500 Diastolic blood pressure 84 mm[Hg] PA-C Louise Hills PA Work Phone: [facility] 03-25-2023 09:37-0500 Systolic blood pressure 120 mm[Hg] [facility] Work Phone: [facility] 11-21-2020 13:59-0400 Body height 160.02 cm [facility].; [facility]. 11-21-2020 13:59-0400 Body mass index (BMI) [Ratio] 50.84 kg/m2 [facility].; [facility]. 11-21-2020 13:59-0400 Body surface area Derived from formula 2.25 m2 Veronica Abdul LPN [facility], [facility].; [facility]. 11-21-2020 13:59-0400 Body weight 130.18 kg [facility].; [facility]. 11-21-2020 13:59-0400 Diastolic blood pressure 75 mm[Hg] Veronica Abdul LPN [facility].; [facility], [facility]. Comment on above: Patient Position: Sitting; Cuff Location : Left Arm; Cuff Size: Standard 11-21-2020 13:59-0400 Heart rate 102 /min Veronica Abdul LPN [facility], [facility].; [employer] [facility]. Comment on above: Pattern: Regular 11-21-2020 13:59-0400 Systolic blood pressure 112 mm[Hg] Ver[facility].; [facility], [facility]. Comment on above: Patient Position: Sitting; Cuff Location : Left Arm; Cuff Size: Standard 08-09-2019 14:22-0400 Body height 160.02 cm Jerry Newman LPN [facility], [facility].; [facility]. 08-09-2019 14:22-0400 Body mass index (BMI) [Ratio] 52.26 kg/m2 Neilee L Vess CHEMICAL DEPENDENCY PROFESSIONAL [facility], [facility].; [employer], [facility]. 08-09-2019 14:22-0400 Body surface area Derived from formula 2.28 m2 Neilee L Vess CHEMICAL DEPENDENCY PROFESSIONAL [facility], [facility].; [employer] 08-09-2019 14:22-0400 Body temperature 99.4 [degF] Neilee L Vess CHEMICAL DEPENDENCY PROFESSIONAL [facility], [facility].; [employer], [place]. Comment on above: Method: Tympanic 08-09-2019 14:22-0400 Body weight 133.81 kg Neilee L Vess CHEMICAL DEPENDENCY PROFESSIONAL [facility], [facility].; [employer], [facility]. 08-09-2019 14:22-0400 Diastolic blood pressure 76 mm[Hg] Neilee L Vess CHEMICAL DEPENDENCY PROFESSIONAL [facility], [facility].; [employer], [place]. Comment on above: Patient Position: Sitting; Cuff Location : Left Arm; Cuff Size: Standard 08-09-2019 14:22-0400 Heart rate 97 /min Neilee L Vess CHEMICAL DEPENDENCY PROFESSIONAL [facility], [facility].; [employer], [place]. Comment on above: Pattern: Regular 08-09-2019 14:22-0400 Systolic blood pressure 131 mm[Hg] Neilee L Vess CHEMICAL DEPENDENCY PROFESSIONAL [facility], [facility].; [employer], [place]. Comment on above: Patient Position: Sitting; Cuff Location : Left Arm; Cuff Size: Standard 08-01-2019 11:25-0400 Body height 160.02 cm Louise Moon PA-C Work Phone: [facility].; [facility] [employer] [facility]. 06-23-2019 08:18-0500 Body height 160.02 cm Neilee L Vess CHEMICAL DEPENDENCY PROFESSIONAL [facility] [employer], [facility].; [employer] 06-23-2019 08:18-0500 Body mass index (BMI) [Ratio] 51.72 kg/m2 Neilee L Vess CHEMICAL DEPENDENCY PROFESSIONAL [employer], [place]. 06-23-2019 08:18-0500 Body surface area Derived from formula 2.27 m2 Neilee L Vess CHEMICAL DEPENDENCY PROFESSIONAL [facility].; [employer] [facility] [facility]. 06-23-2019 08:18-0500 Body temperature 99.7 [degF] Neilee L Vess CHEMICAL DEPENDENCY PROFESSIONAL [facility], [facility].; [employer]. Comment on above: Method: Tympanic 06-23-2019 08:18-0500 Body weight 132.45 kg Neilee L Vess CHEMICAL DEPENDENCY PROFESSIONAL [facility], [facility].; [employer]. 06-23-2019 08:18-0500 Diastolic blood pressure 74 mm[Hg] Neilee L Vess CHEMICAL DEPENDENCY PROFESSIONAL [facility].; [employer]. Comment on above: Patient Position: Sitting; Cuff Location : Left Arm; Cuff Size: Standard 06-23-2019 08:18-0500 Heart rate 99 /min Neilee L Vess CHEMICAL DEPENDENCY PROFESSIONAL [facility], [facility].; [employer]. Comment on above: Pattern: Regular 06-23-2019 08:18-0500 Inhaled oxygen concentration 20 % Neilee L Vess CHEMICAL DEPENDENCY PROFESSIONAL [facility], [facility].; [employer]. Comment on above: Room air 06-23-2019 08:18-0500 Inhaled oxygen concentration 21 % Neilee L Vess CHEMICAL DEPENDENCY PROFESSIONAL [facility], [facility].; [employer]. Comment on above: Room air 06-23-2019 08:18-0500 SaO2% (BldA) [Mass fraction] 98 % Neilee L Vess CHEMICAL DEPENDENCY PROFESSIONAL [facility], [facility].; [employer]. 06-23-2019 08:18-0500 Systolic blood pressure 135 mm[Hg] Neilee L Vess CHEMICAL DEPENDENCY PROFESSIONAL [facility].; [employer]. Comment on above: Patient Position: Sitting; Cuff Location : Left Arm; Cuff Size: Standard 05-23-2019 14:05-0500 Body height 160.02 cm Neilee L Vess CHEMICAL DEPENDENCY PROFESSIONAL [facility], [facility].; [employer]. 05-23-2019 14:05-0500 Body mass index (BMI) [Ratio] 51.72 kg/m2 Neilee L Vess CHEMICAL DEPENDENCY PROFESSIONAL [facility] [facility].; [employer]. 05-23-2019 14:05-0500 Body surface area Derived from formula 2.27 m2 Neilee L Vess CHEMICAL DEPENDENCY PROFESSIONAL [employer], [place]. 05-23-2019 14:05-0500 Body weight 132.45 kg Neilee L Vess CHEMICAL DEPENDENCY PROFESSIONAL [employer], [place]. 05-23-2019 14:05-0500 Diastolic blood pressure 76 mm[Hg] Neilee L Vess CHEMICAL DEPENDENCY PROFESSIONAL [employer]. Comment on above: Patient Position: Sitting; Cuff Location : Right Arm; Cuff Size: Standard 05-23-2019 14:05-0500 Heart rate 96 /min Neilee L Vess CHEMICAL DEPENDENCY PROFESSIONAL [employer]. Comment on above: Pattern: Regular 05-23-2019 14:05-0500 Systolic blood pressure 124 mm[Hg] Neilee L Vess CHEMICAL DEPENDENCY PROFESSIONAL [employer], [place]. Comment on above: Patient Position: Sitting; Cuff Location : Right Arm; Cuff Size: Standard 02-14-2019 08:50-0400 Body height 160.02 cm Neilee L Vess CHEMICAL DEPENDENCY PROFESSIONAL [employer], [place]. 02-14-2019 08:50-0400 Body mass index (BMI) [Ratio] 50.66 kg/m2 Neilee L Vess CHEMICAL DEPENDENCY PROFESSIONAL [employer], [place]. 02-14-2019 08:50-0400 Body surface area Derived from formula 2.25 m2 Neilee L Vess CHEMICAL DEPENDENCY PROFESSIONAL [employer]. 02-14-2019 08:50-0400 Body weight 129.73 kg Neilee L Vess CHEMICAL DEPENDENCY PROFESSIONAL [employer], [place]. 02-14-2019 08:50-0400 Diastolic blood pressure 74 mm[Hg] Neilee L Vess CHEMICAL DEPENDENCY PROFESSIONAL [employer], [place]. Comment on above: Patient Position: Sitting; Cuff Location : Right Arm; Cuff Size: Standard 02-14-2019 08:50-0400 Heart rate 86 /min Neilee L Vess CHEMICAL DEPENDENCY PROFESSIONAL [employer], [place]. Comment on above: Pattern: Regular 02-14-2019 08:50-0400 Systolic blood pressure 125 mm[Hg] Neilee L Vess CHEMICAL DEPENDENCY PROFESSIONAL [email or web address]. Comment on above: Patient Position: Sitting; Cuff Location : Right Arm; Cuff Size: Standard 01-13-2019 08:14-0400 Body height 160.02 cm Neilee L Vess CHEMICAL DEPENDENCY PROFESSIONAL [employer]. 01-13-2019 08:14-0400 Body mass index (BMI) [Ratio] 51.19 kg/m2 Neilee L Vess CHEMICAL DEPENDENCY PROFESSIONAL [email or web address]. 01-13-2019 08:14-0400 Body surface area Derived from formula 2.26 m2 Neilee L Vess CHEMICAL DEPENDENCY PROFESSIONAL [employer]. 01-13-2019 08:14-0400 Body weight 131.09 kg Neilee L Vess CHEMICAL DEPENDENCY PROFESSIONAL [employer]. 01-13-2019 08:14-0400 Diastolic blood pressure 72 mm[Hg] Neilee L Vess CHEMICAL DEPENDENCY PROFESSIONAL [employer] Comment on above: Patient Position: Sitting; Cuff Location : Right Arm; Cuff Size: Standard 01-13-2019 08:14-0400 Heart rate 79 /min Neilee L Vess CHEMICAL DEPENDENCY PROFESSIONAL [employer]. Comment on above: Pattern: Regular 01-13-2019 08:14-0400 Systolic blood pressure 115 mm[Hg] Neilee L Vess CHEMICAL DEPENDENCY PROFESSIONAL [employer]. Comment on above: Patient Position: Sitting; Cuff Location : Right Arm; Cuff Size: Standard 2018 14:54-0400 Body height 160.02 cm Brooke Heard RN [employer] 2018 14:54-0400 Body mass index (BMI) [Ratio] 50.56 kg/m2 Brooke Heard RN [employer]. 2018 14:54-0400 Body surface area Derived from formula 2.25 m2 Brooke Heard RN [employer] 2018 14:54-0400 Body temperature 99.2 [degF] Brooke Heard RN [employer]. Comment on above: Method: Tympanic 2018 14:54-0400 Body weight 129.46 kg Brooke Heard RN [employer] 2018 14:54-0400 Diastolic blood pressure 83 mm[Hg] Brooke Heard RN [employer]. Comment on above: Patient Position: Sitting; Cuff Location : Left Arm; Cuff Size: Standard 2018 14:54-0400 Heart rate 107 /min Brooke Heard RN [employer]. Comment on above: Pattern: Regular 2018 14:54-0400 Systolic blood pressure 126 mm[Hg] Brooke Heard RN [employer]. Comment on above: Patient Position: Sitting; Cuff Location : Left Arm; Cuff Size: Standard 09-02-2018 07:57-0400 Body height 160.02 cm Brooke Heard RN [employer] 09-02-2018 07:57-0400 Body mass index (BMI) [Ratio] 48.2 kg/m2 Brooke Heard RN [employer]. 09-02-2018 07:57-0400 Body surface area Derived from formula 2.2 m2 Brooke Heard RN [employer]. 09-02-2018 07:57-0400 Body temperature 99 [degF] Brooke Heard RN [employer]. Comment on above: Method: Tympanic 09-02-2018 07:57-0400 Body weight 123.42 kg Brooke Heard RN [employer]. 09-02-2018 07:57-0400 Diastolic blood pressure 84 mm[Hg] Brooke Heard RN [employer]. Comment on above: Patient Position: Sitting; Cuff Location : Left Arm; Cuff Size: Standard 09-02-2018 07:57-0400 Heart rate 89 /min Brooke Heard RN [employer]. Comment on above: Pattern: Regular 09-02-2018 07:57-0400 Systolic blood pressure 125 mm[Hg] Brooke Heard RN [employer]. Comment on above: Patient Position: Sitting; Cuff Location : Left Arm; Cuff Size: Standard 06-30-2018 11:25-0400 Body height 160.02 cm Brooke Heard RN [employer]. 06-30-2018 11:25-0400 Body mass index (BMI) [Ratio] 45.22 kg/m2 Brooke Heard RN [employer]. 06-30-2018 11:25-0400 Body surface area Derived from formula 2.15 m2 Brooke Heard RN [employer] 06-30-2018 11:25-0400 Body temperature 99.5 [degF] Brooke Heard RN [employer]. Comment on above: Method: Tympanic 06-30-2018 11:250400 Body weight 115.8 kg Brooke Heard RN [employer]. 06-30-2018 11:25-0400 Diastolic blood pressure 74 mm[Hg] Brooke Heard RN [employer]. Comment on above: Patient Position: Sitting; Cuff Location : Left Arm; Cuff Size: Standard 06-30-2018 11:25-0400 Heart rate 87 /min Brooke Heard RN [employer]. Comment on above: Pattern: Regular 06-30-2018 11:25-0400 Systolic blood pressure 125 mm[Hg] Brooke Heard RN [employer]. 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 08-04-2017 14:020400 Body surface area Derived from formula 2.13 m2 Neilee L Vess CHEMICAL DEPENDENCY PROFESSIONAL [employer]. 08-04-2017 14:020400 Body weight 113.4 kg Neilee L Vess CHEMICAL DEPENDENCY PROFESSIONAL [employer], [place]. 08-04-2017 14:02-0400 Diastolic blood pressure 85 mm[Hg] Neilee L Vess CHEMICAL DEPENDENCY PROFESSIONAL [employer], [place]. Comment on above: Patient Position: Sitting; Cuff Location : Left Arm; Cuff Size: Standard 08-04-2017 14:02-0400 Heart rate 123 /min QuickBloxilee L Vess CHEMICAL DEPENDENCY PROFESSIONAL [employer], [place]. Comment on above: Pattern: Regular 08-04-2017 14:02-0400 Systolic blood pressure 140 mm[Hg] Neilee L Vess CHEMICAL DEPENDENCY PROFESSIONAL [employer]. Comment on above: Patient Position: Sitting; Cuff Location : Left Arm; Cuff Size: Standard 06-24-2017 15:33-0500 Body temperature 98.8 [degF] Brooke Heard RN [employer], [place]. Comment on above: Method: Tympanic 06-24-2017 15:33-0500 Body weight 109.94 kg Brooke Heard RN [employer], [place]. 06-24-2017 15:33-0500 Diastolic blood pressure 93 mm[Hg] Brooke Heard RN [employer]. Comment on above: Patient Position: Sitting; Cuff Location : Left Arm; Cuff Size: Standard 06-24-2017 15:33-0500 Heart rate 92 /min Brooke Heard RN [employer]. Comment on above: Pattern: Regular 06-24-2017 15:33-0500 Systolic blood pressure 143 mm[Hg] Brooke Heard RN [employer]. Comment on above: Patient Position: Sitting; Cuff Location : Left Arm; Cuff Size: Standard 06-18-2017 15:36-0500 Body height 160.02 cm Brooke Heard RN [employer]. 06-18-2017 15:36-0500 Body mass index (BMI) [Ratio] 44.18 kg/m2 Boroke Heard RN [employer]. 06-18-2017 15:36-0500 Body surface area Derived from formula 2.12 m2 Brooke Heard RN [employer]. 06-18-2017 15:36-0500 Body temperature 98.6 [degF] Brooke Heard RN [employer]. Comment on above: Method: Tympanic 06-18-2017 15:36-0500 Body weight 113.13 kg Brooke Heard RN [employer]. 06-18-2017 15:36-0500 Diastolic blood pressure 71 mm[Hg] Brooke Heard RN [employer]. Comment on above: Patient Position: Sitting; Cuff Location : Left Arm; Cuff Size: Standard 06-18-2017 15:36-0500 Heart rate 75 /min Brooke Heard RN [employer]. Comment on above: Pattern: Regular 06-18-2017 15:36-0500 Systolic blood pressure 105 mm[Hg] Brooke Heard RN [employer]. Comment on above: Patient Position: Sitting; Cuff Location : Left Arm; Cuff Size: Standard 05-21-2017 15:29-0500 Body height 160.02 cm Brooke Heard RN [employer] 05-21-2017 15:29-0500 Body mass index (BMI) [Ratio] 44.62 kg/m2 Brooke Heard RN [employer]. 05-21-2017 15:29-0500 Body surface area Derived from formula 2.13 m2 Brooke Heard RN [employer]. 05-21-2017 15:29-0500 Body temperature 98.1 [degF] Brooke Heard RN [employer]. Comment on above: Method: Tympanic 05-21-2017 15:29-0500 Body weight 114.26 kg Brooke Heard RN [employer]. 05-21-2017 15:29-0500 Diastolic blood pressure 94 mm[Hg] Brooke Heard RN [employer]. Comment on above: Patient Position: Sitting; Cuff Location : Left Arm; Cuff Size: Standard 05-21-2017 15:29-0500 Heart rate 69 /min Brooke Heard RN [employer]. Comment on above: Pattern: Regular 05-21-2017 15:29-0500 Systolic blood pressure 136 mm[Hg] Brooke Heard RN [employer]. Comment on above: Patient Position: Sitting; Cuff Location : Left Arm; Cuff Size: Standard 03-25-2017 14:35-0500 Body height 160.02 cm Brooke Heard RN [employer]. 03-25-2017 14:35-0500 Body mass index (BMI) [Ratio] 43.31 kg/m2 Brooke Heard RN [employer]. 03-25-2017 14:35-0500 Body surface area Derived from formula 2.11 m2 Brooke Heard RN [employer]. 03-25-2017 14:35-0500 Body temperature 98.8 [degF] Brooke Heard RN [employer]. Comment on above: Method: Tympanic 03-25-2017 14:35-0500 Body weight 110.91 kg Brooke Heard RN [employer] 03-25-2017 14:35-0500 Diastolic blood pressure 73 mm[Hg] Brooke Heard RN [employer]. Comment on above: Patient Position: Sitting; Cuff Location : Left Arm; Cuff Size: Standard 03-25-2017 14:35-0500 Heart rate 91 /min Brooke Heard RN [employer], [place].; [employer]. Comment on above: Pattern: Regular 03-25-2017 14:35-0500 Systolic blood pressure 132 mm[Hg] Brooke Heard RN [employer], [place]. Comment on above: Patient Position: Sitting; Cuff Location : Left Arm; Cuff Size: Standard 02-24-2017 14:19-0500 Body height 160.02 cm Neilee L Vess CHEMICAL DEPENDENCY PROFESSIONAL [employer] 02-24-2017 14:190500 Body mass index (BMI) [Ratio] 43.93 kg/m2 Neilee L Vess CHEMICAL DEPENDENCY PROFESSIONAL [employer] 02-24-2017 14:190500 Body surface area Derived from formula 2.12 m2 Neilee L Vess CHEMICAL DEPENDENCY PROFESSIONAL [employer] 02-24-2017 14:19-0500 Body weight 112.49 kg Neilee L Vess CHEMICAL DEPENDENCY PROFESSIONAL [employer], [place]. 02-24-2017 14:19-0500 Diastolic blood pressure 74 mm[Hg] Neilee L Vess CHEMICAL DEPENDENCY PROFESSIONAL [employer], [place]. Comment on above: Patient Position: Sitting; Cuff Location : Right Arm; Cuff Size: Standard 02-24-2017 14:19-0500 Heart rate 127 /min Neilee L Vess CHEMICAL DEPENDENCY PROFESSIONAL [employer]. Comment on above: Pattern: Regular 02-24-2017 14:19-0500 Systolic blood pressure 133 mm[Hg] Jerry Newman LPN [employer]. Comment on above: Patient Position: Sitting; Cuff Location : Right Arm; Cuff Size: Standard 10-16-2016 14:54-0400 Body height 160.[address] Scribbles Uptain CNM Work Phone: [employer]; [employer]. 10-16-2016 14:54-0400 Body mass index (BMI) [Percentile] Per age and sex 99 % [place] [employer] CNM Work Phone: [employer]; [employer]. 10-16-2016 14:54-0400 Body mass index (BMI) [Ratio] 42.51 kg/m2 [place] [employer] CNM Work Phone: [employer]; [employer]. 10-16-2016 14:54-0400 Body surface area Derived from formula 2.09 m2 [place] [employer] CNM Work Phone: [employer]; [employer]. 10-16-2016 14:54-0400 Body temperature 99.6 [degF] Dr. Scribbles Uptain CNM Work Phone: [employer]; [employer]. Comment on above: Method: Tympanic 10-16-2016 14:54-0400 Body weight 108.86 kg [place] [employer] CNM Work Phone: [employer]; [employer]. 10-16-2016 14:54-0400 Diastolic blood pressure 74 mm[Hg] [place] [employer] CNM Work Phone: [employer]; [employer]. Comment on above: Patient Position: Sitting; Cuff Location : Right Arm; Cuff Size: Large 10-16-2016 14:54-0400 Heart rate 107 /min [place] [employer] CNM Work Phone: [employer]; [employer]. Comment on above: Pattern: Regular 10-16-2016 14:54-0400 Inhaled oxygen concentration 20 % Crystal Uptain CNM Work Phone: [employer]; [employer]. Comment on above: Room air 10-16-2016 14:54-0400 Inhaled oxygen concentration 21 % Crystal Uptain CNM Work Phone: [employer]. Comment on above: Room air 10-16-2016 14:54-0400 SaO2% (BldA) [Mass fraction] 99 % Crystal Uptain CNM Work Phone: [employer]; [employer]. 10-16-2016 14:54-0400 Systolic blood pressure 112 mm[Hg] Crystal Uptain CNM Work Phone: [employer]; [employer]. Comment on above: Patient Position: Sitting; Cuff Location : Right Arm; Cuff Size: Large 07-14-2016 11:06-0400 Body height 160.02 cm Brooke Heard RN [employer] 07-14-2016 11:06-0400 Body mass index (BMI) [Percentile] Per age and sex 99 % Brooke Heard RN [employer] 07-14-2016 11:06-0400 Body mass index (BMI) [Ratio] 42.74 kg/m2 Brooke Heard RN [employer]. 07-14-2016 11:06-0400 Body surface area Derived from formula 2.09 m2 Brooke Heard RN [employer]. 07-14-2016 11:06-0400 Body temperature 99.4 [degF] Brooke Heard RN [employer]. Comment on above: Method: Tympanic 07-14-2016 11:06-0400 Body weight 109.45 kg Brooke Heard RN [employer] 07-14-2016 11:06-0400 Diastolic blood pressure 82 mm[Hg] Brooke Heard RN [employer]. Comment on above: Patient Position: Sitting; Cuff Location : Left Arm; Cuff Size: Standard 07-14-2016 11:06-0400 Heart rate 106 /min Brooke Heard RN [employer]. Comment on above: Pattern: Regular 07-14-2016 11:06-0400 Systolic blood pressure 151 mm[Hg] Brooke Heard RN [employer]. Comment on above: Patient Position: Sitting; Cuff Location : Left Arm; Cuff Size: Standard 04-02-2016 15:04-0500 Body height 160.02 cm Brooke Heard RN [employer] 04-02-2016 15:04-0500 Body mass index (BMI) [Percentile] Per age and sex 99 % Brooke Heard RN [employer]. 04-02-2016 15:04-0500 Body mass index (BMI) [Ratio] 43.58 kg/m2 Brooke Heard RN [employer]. 04-02-2016 15:04-0500 Body surface area Derived from formula 2.11 m2 Brooke Heard RN [employer]. 04-02-2016 15:04-0500 Body temperature 99.5 [degF] Brooke Heard RN [employer]. Comment on above: Method: Tympanic 04-02-2016 15:04-0500 Body weight 111.59 kg Brooke Heard RN [employer]. 04-02-2016 15:04-0500 Diastolic blood pressure 86 mm[Hg] Brooke Heard RN [employer]. Comment on above: Patient Position: Sitting; Cuff Location : Left Arm; Cuff Size: Standard 04-02-2016 15:04-0500 Heart rate 103 /min Brooke Heard RN [facility], [facility].; [employer] [facility]. Comment on above: Pattern: Regular 04-02-2016 15:04-0500 Systolic blood pressure 142 mm[Hg] Brooke Heard RN [facility].; [employer] [facility]. Comment on above: Patient Position: Sitting; Cuff Location : Left Arm; Cuff Size: Standard 09-14-2015 14:33-0400 Body height 160.02 cm Margoth Nathan CHEMICAL DEPENDENCY PROFESSIONAL [facility], [facility].; [employer], [place]. 09-14-2015 14:33-0400 Body mass index (BMI) [Percentile] Per age and sex 99 % Margoth Ty Ty [facility], [facility].; [employer] [facility], [place]. 09-14-2015 14:33-0400 Body mass index (BMI) [Ratio] 44.64 kg/m2 [facility] Nathan [facility], [facility].; [place] [facility], [place]. 09-14-2015 14:33-0400 Body surface area Derived from formula 2.13 m2 Margoth Nathan CHEMICAL DEPENDENCY PROFESSIONAL [facility].; [employer], [place]. 09-14-2015 14:33-0400 Body temperature 97.4 [degF] Margoth Stuckey [facility].; [employer]. Comment on above: Method: Tympanic 09-14-2015 14:33-0400 Body weight 114.31 kg Margoth Nathan CHEMICAL DEPENDENCY PROFESSIONAL [facility].; [place] [facility], [place]. 03-06-2015 14:15-0500 Body height 160.02 cm Margoth Stuckey CHEMICAL DEPENDENCY PROFESSIONAL [facility], [facility].; [employer]. 03-06-2015 14:15-0500 Body mass index (BMI) [Percentile] Per age and sex 99 % MargothYane Evans CHEMICAL DEPENDENCY PROFESSIONAL [facility].; [employer]. 03-06-2015 14:15-0500 Body mass index (BMI) [Ratio] 46.23 kg/m2 [facility] Nathan CHEMICAL DEPENDENCY PROFESSIONAL [facility].; [employer]. 03-06-2015 14:15-0500 Body surface area Derived from formula 2.17 m2 Zeinab Evans [facility], Inc[employer], [place]. 03-06-2015 14:15-0500 Body temperature 99.2 [degF] Zeinab Evans [facility], [employer]. Comment on above: Method: Tympanic 03-06-2015 14:15-0500 Body weight 118.39 kg Zeinab Evans [facility], [employer]. 03-06-2015 14:15-0500 Diastolic blood pressure 80 mm[Hg] Zeinab Evans [facility], [place]. Comment on above: Patient Position: Sitting; Cuff Location : Left Arm; Cuff Size: Large 03-06-2015 14:15-0500 Heart rate 105 /min MargothYane Evans [facility], [place].; [employer]. Comment on above: Pattern: Regular 03-06-2015 14:15-0500 Inhaled oxygen concentration 20 % MargothYane Evans [facility] [employer]. Comment on above: Room air 03-06-2015 14:15-0500 Inhaled oxygen concentration 21 % MargothYane Evans [facility], [employer]. Comment on above: Room air 03-06-2015 14:15-0500 SaO2% (BldA) [Mass fraction] 98 % MargothYane Evans [facility], [employer]. 03-06-2015 14:15-0500 Systolic blood pressure 118 mm[Hg] Zeinab Evans [facility], [place].; [employer]. Comment on above: Patient Position: Sitting; Cuff Location : Left Arm; Cuff Size: Large 10-05-2014 11:02-0400 Body height 160.02 cm Yolande Upton [facility], [place].; [employer]. 10-05-2014 11:02-0400 Body mass index (BMI) [Percentile] Per age and sex 99 % Yolande Devon Mutersbaugh CHEMICAL DEPENDENCY PROFESSIONAL [facility], Inc.; [employer] [facility] [employer] 10-05-2014 11:02-0400 Body mass index (BMI) [Ratio] 44.64 kg/m2 Yolande K Mutersbaugh CHEMICAL DEPENDENCY PROFESSIONAL [facility], Inc.; [employer] 10-05-2014 11:02-0400 Body surface area Derived from formula 2.13 m2 Yolande K Mutersbaugh [facility], Inc.; [employer] 10-05-2014 11:02-0400 Body weight 114.31 kg Yolande Devon Mutersbaugh [facility], [facility].; [employer], [facility]. 10-05-2014 11:02-0400 Diastolic blood pressure 89 mm[Hg] Yolande K Mutersbaugh [facility], Inc.; [employer], [place]. Comment on above: Patient Position: Sitting; Cuff Location : Left Arm; Cuff Size: Standard 10-05-2014 11:02-0400 Heart rate 80 /min Yolande Devon Haydenbaugh [facility], Inc.; [employer] Comment on above: Pattern: Regular 10-05-2014 11:02-0400 Systolic blood pressure 137 mm[Hg] Yolande Devon Hansonersbaugh CHEMICAL DEPENDENCY PROFESSIONAL [facility], Inc.; [employer] Comment on above: Patient Position: Sitting; Cuff Location : Left Arm; Cuff Size: Standard 04-14-2014 14:45-0500 Body height 160.02 cm [facility].; [employer], [facility]. 04-14-2014 14:45-0500 Body mass index (BMI) [Percentile] Per age and sex 99 % Leny Arredondo [facility], [facility].; [facility], [facility]. 04-14-2014 14:45-0500 Body mass index (BMI) [Ratio] 43.58 kg/m2 [facility].; [employer], [facility]. 04-14-2014 14:45-0500 Body surface area Derived from formula 2.11 m2 Leny Arredondo LPN [facility] [facility] [facility].; [employer] 04-14-2014 14:45-0500 Body temperature 99.1 [degF] [facility].; [employer]. 04-14-2014 14:45-0500 Body weight 111.59 kg Leny [facility]redondo [facility] [employer]. 10-14-2013 10:25-0400 Body height 158.75 cm Crystal Uptain CNM Work Phone: [employer]. 10-14-2013 10:25-0400 Body mass index (BMI) [Percentile] Per age and sex 99 % Dr. Scribbles Uptain CNM Work Phone: [employer]. 10-14-2013 10:25-0400 Body mass index (BMI) [Ratio] 43.92 kg/m2 Crystal Uptain CNM Work Phone: [employer]. 10-14-2013 10:25-0400 Body surface area Derived from formula 2.09 m2 Crystal Uptain CNM Work Phone: [employer]. 10-14-2013 10:25-0400 Body temperature 99.1 [degF] Dr. Scribbles Uptain CNM Work Phone: [employer].; [employer]. Comment on above: Method: Tympanic 10-14-2013 10:25-0400 Body weight 110.68 kg Crystal Uptain CNM Work Phone: [employer]. 01-12-2013 14:05-0400 Body height [facility].02 [facility] [employer] [employer]. 01-12-2013 14:05-0400 Body mass index (BMI) [Percentile] Per age and sex 99 % [facility] [employer].; [employer] 01-12-2013 14:05-0400 Body mass index (BMI) [Ratio] 39.68 kg/m2 Zeinab Evans [facility] [employer] 01-12-2013 14:05-0400 Body surface area Derived from formula 2.03 m2 Zeinab Evans [facility], Inc.; [employer] 01-12-2013 14:05-0400 Body temperature 99.8 [degF] Zeinab Evans [facility] [employer]. Comment on above: Method: Tympanic 01-12-2013 14:05-0400 Body weight 101.61 kg Zeinab Evans [facility] 10-08-2012 09:19-0400 Body height 157.48 cm Leny Arredondo [facility] 10-08-2012 09:19-0400 Body mass index (BMI) [Percentile] Per age and sex 99 % Leny Arredondo [facility] [employer] 10-08-2012 09:19-0400 Body mass index (BMI) [Ratio] 40.6 kg/m2 Leny Arredondo [facility] 10-08-2012 09:19-0400 Body surface area Derived from formula 2 m2 Leny Arredondo CHEMICAL DEPENDENCY PROFESSIONAL [place] [facility] [employer] 10-08-2012 09:19-0400 Body temperature 97.8 [degF] Leny [facility]redondo [facility] [employer], [employer], [place]. 10-08-2012 09:19-0400 Body weight 100.7 kg Leny Arredondo [facility], [facility].; [employer] 08-17-2012 09:09-0400 Body height 157.48 cm Zeinab Evans [facility], Inc.; [employer] 08-17-2012 09:09-0400 Body mass index (BMI) [Percentile] Per age and sex 99 % Zeinab Evans CHEMICAL DEPENDENCY PROFESSIONAL [facility], Inc.; [facility], Inc. 08-17-2012 09:09-0400 Body mass index (BMI) [Ratio] 40.06 kg/m2 Zeinab Evans CHEMICAL DEPENDENCY PROFESSIONAL [facility], Inc.; [facility], Inc. 08-17-2012 09:09-0400 Body surface area Derived from formula 1.99 m2 Zeinab Evans CHEMICAL DEPENDENCY PROFESSIONAL [facility], Inc.; [employer] [facility], Inc. 08-17-2012 09:09-0400 Body weight 99.34 kg Zeinab Evans [facility], Inc.; [employer] [facility], Inc. 08-17-2012 09:09-0400 Diastolic blood pressure 79 mm[Hg] Zeinab Evans CHEMICAL DEPENDENCY PROFESSIONAL [facility], Inc.; [employer] Comment on above: Patient Position: Sitting; Cuff Location : Left Arm; Cuff Size: Large 08-17-2012 09:09-0400 Heart rate 81 /min Zeinab Evans CHEMICAL DEPENDENCY PROFESSIONAL [facility], Inc.; [employer] Comment on above: Pattern: Regular 08-17-2012 09:09-0400 Systolic blood pressure 133 mm[Hg] Zeinab Evans [facility], Inc.; [employer], [employer] Comment on above: Patient Position: Sitting; Cuff Location : Left Arm; Cuff Size: Large 06-24-2012 15:54-0500 Body height 160.02 cm Mallory Siddiqui LPN [facility], Inc.; [employer] 06-24-2012 15:54-0500 Body mass index (BMI) [Percentile] Per age and sex 99 % Mallory Siddiqui LPN [facility], Inc.; [employer] 06-24-2012 15:54-0500 Body mass index (BMI) [Ratio] 39.19 kg/m2 Mallory Siddiqui LPN [place] [facility], Inc.; [employer] 06-24-2012 15:54-0500 Body surface area Derived from formula 2.02 m2 Mallory Siddiqui LPN [facility].; [employer] [facility]. 06-24-2012 15:54-0500 Body temperature 100 [degF] Mallory Wesurinder [facility], [facility].; [employer]. Comment on above: Method: Tympanic 06-24-2012 15:54-0500 Body weight 100.36 kg Mallory Sinsurinder MCDONALD [facility], Inc.; Terry [employer] 06-24-2012 15:54-0500 Heart rate 87 /min Mallory Sinsurinder CHEMICAL DEPENDENCY PROFESSIONAL [facility].; [employer]. Comment on above: Pattern: Regular 06-24-2012 15:54-0500 Inhaled oxygen concentration 20 % Mallory Sinsurinder [facility], [facility].; [employer], [place]. Comment on above: Room air 06-24-2012 15:54-0500 Inhaled oxygen concentration 21 % Mallory Siddiqui LPN [facility], [place].; [employer]. Comment on above: Room air 06-24-2012 15:54-0500 SaO2% (BldA) [Mass fraction] 98 % Mallory Wesurinder [facility], [facility].; [employer]. 12-25-2011 15:43-0400 Body height 160.02 cm Malloryrodrigo Siddiqui LPN [place] [facility], [facility].; [employer]. 12-25-2011 15:43-0400 Body mass index (BMI) [Percentile] Per age and sex 99 % Mallory Siddiqui LPN [facility], [facility].; [employer]. 12-25-2011 15:43-0400 Body mass index (BMI) [Ratio] 39.7 kg/m2 Mallory Sinsurinder [facility] [employer] [facility], [place].; [place] [employer] [place]. 12-25-2011 15:43-0400 Body surface area Derived from formula 2.03 m2 Mallory Siddiqui CHEMICAL DEPENDENCY PROFESSIONAL [place] [facility], [place].; [employer]. 12-25-2011 15:43-0400 Body temperature 99.7 [degF] Mallory Siddiqui TAMARA [place] [facility].; [employer]. Comment on above: Method: Tympanic 12-25-2011 15:43-0400 Body weight 101.66 kg Mallory Reyesalvaradoifeanyi TAMARA [facility], [facility].; [employer] 12-25-2011 15:43-0400 Diastolic blood pressure 85 mm[Hg] Mallory Vogtmeñoifeanyi [facility]ENCY [facility].; [employer] Comment on above: Patient Position: Sitting; Cuff Location : Left Arm; Cuff Size: Standard 12-25-2011 15:43-0400 Heart rate 101 /min Mallory Vogtsurinder [facility].; [employer]. Comment on above: Pattern: Regular 12-25-2011 15:43-0400 Systolic blood pressure 129 mm[Hg] Mallory Reyesalvaradoifeanyi [facility].; [employer]. Comment on above: Patient Position: Sitting; Cuff Location : Left Arm; Cuff Size: Standard 09-22-2011 09:11-0400 Body height 160.02 cm Crystal Uptain CNM Work Phone: [employer].; [employer] 09-22-2011 09:11-0400 Body mass index (BMI) [Percentile] Per age and sex 99 % Dr. Scribbles Uptain CNM Work Phone: [employer].; [employer]. 09-22-2011 09:11-0400 Body mass index (BMI) [Ratio] 38.26 kg/m2 Crystal Uptain CNM Work Phone: [employer].; [employer]. 09-22-2011 [id number] Body surface area Derived from formula 2 m2 Crystal Uptain CNM Work Phone: [employer].; [employer]. 09-22-2011 09:11-0400 Body temperature 97.4 [degF] Crystal Uptain CNM Work Phone: [employer].; [employer]. Comment on above: Method: Tympanic 09-22-2011 [id number] Body weight 97.[address] Scribbles [employer] CNM Work Phone: [facility].; [employer]. 09-22-2011 09:11-0400 Diastolic blood pressure 70 mm[Hg] Dr. Scribbles Uptain CNM Work Phone: [place] [employer].; [employer]. Comment on above: Patient Position: Sitting; Cuff Location : Right Arm; Cuff Size: Large 09-22-2011 [id number]:[id number] Heart rate 74 /min [employer] CNM Work Phone: [place] [employer]; [employer]. Comment on above: Pattern: Regular 09-22-2011 09:11-0400 Systolic blood pressure 103 mm[Hg] [place] [employer] CNM Work Phone: [place] [employer]; [employer]. Comment on above: Patient Position: Sitting; Cuff Location : Right Arm; Cuff Size: Large 07-23-2011 [id number] Body height 160.02 cm Margoth Nathan [facility], [facility].; [employer]. 07-23-2011 15:02-0400 Body mass index (BMI) [Percentile] Per age and sex 99 % [facility] Nathan [facility], [facility].; [employer] [facility]. 07-23-2011 15:02-0400 Body mass index (BMI) [Ratio] 38.26 kg/m2 Margoth Nathan CHEMICAL DEPENDENCY PROFESSIONAL [place] [facility].; [employer]. 07-23-2011 15:02-0400 Body surface area Derived from formula 2 m2 [facility] Nathan CHEMICAL DEPENDENCY PROFESSIONAL [facility].; [employer], [place]. 07-23-2011 15:02-0400 Body temperature 98.7 [degF] [facility] Nathan CHEMICAL DEPENDENCY PROFESSIONAL [facility].; [employer]. Comment on above: Method: Tympanic 07-23-2011 15:02-0400 Body weight 97.98 kg Zeinab Evans TAMARA [facility], Inc.; [employer], [place]. 06-13-2011 13:30-0500 Body height 159.38 cm Leny Arredondo TAMARA [facility], [facility].; [employer] 06-13-2011 13:30-0500 Body mass index (BMI) [Percentile] Per age and sex 99 % Lenycarol Arredondo CHEMICAL DEPENDENCY PROFESSIONAL [facility], Inc.; [employer], [employer] 06-13-2011 13:30-0500 Body mass index (BMI) [Ratio] 38.21 kg/m2 Leny Arredondo [facility], Inc.; [employer] Inc. 06-13-2011 13:30-0500 Body surface area Derived from formula 1.98 m2 Leny Arredondo CHEMICAL DEPENDENCY PROFESSIONAL [facility], Inc.; [employer], [employer] 06-13-2011 13:30-0500 Body temperature 98.2 [degF] Lenycarol Arredondo CHEMICAL DEPENDENCY PROFESSIONAL [facility], Inc.; [employer], [employer] 06-13-2011 13:30-0500 Body weight 97.07 kg Leny Arredondo CHEMICAL DEPENDENCY PROFESSIONAL [facility].; [employer], [place]. 02-24-2011 15:29-0500 Body height 156.21 cm Leny Arredondo CHEMICAL DEPENDENCY PROFESSIONAL [facility].; [employer], [place]. 02-24-2011 15:29-0500 Body mass index (BMI) [Percentile] Per age and sex 99 % Lenycarol Arredondo TAMARA [facility].; [employer], [place]. 02-24-2011 15:29-0500 Body mass index (BMI) [Ratio] 39.41 kg/m2 Leny Arredondo CHEMICAL DEPENDENCY PROFESSIONAL [facility].; [employer], [place]. 02-24-2011 15:29-0500 Body surface area Derived from formula 1.95 m2 Leny Arredondo CHEMICAL DEPENDENCY PROFESSIONAL [place] [facility].; [employer], [place]. 02-24-2011 15:29-0500 Body temperature 99.3 [degF] Leyn Arredondo CHEMICAL DEPENDENCY PROFESSIONAL [place] [facility], [facility].; [employer]. 02-24-2011 15:29-0500 Body weight 96.16 kg Leny Arredondo [facility], [facility].; [place] [facility]. 01-07-2011 14:58-0400 Body height 158.75 cm Zeinab Evans [facility], [facility].; [employer]. 01-07-2011 14:58-0400 Body mass index (BMI) [Percentile] Per age and sex 99 % Margoth Stuckey [facility], [facility].; [place] [employer] [facility]. 01-07-2011 14:58-0400 Body mass index (BMI) [Ratio] 38.16 kg/m2 [facility].; [place] [employer] [facility]. 01-07-2011 14:58-0400 Body surface area Derived from formula 1.97 m2 [facility].; [employer]. 01-07-2011 14:58-0400 Body temperature 99.1 [degF] Margoth Stuckey [facility].; [employer]. Comment on above: Method: Tympanic 01-07-2011 14:58-0400 Body weight 96.16 kg Margoth Stuckey [facility].; [employer]. 06-21-2010 15:40-0500 Body height 157.48 cm Crystal Uptain CNM Work Phone: [place] [employer].; [employer]. 06-21-2010 15:40-0500 Body mass index (BMI) [Percentile] Per age and sex 99 % Crystal Uptain CNM Work Phone: [employer].; [employer]. 06-21-2010 15:40-0500 Body mass index (BMI) [Ratio] 37.13 kg/m2 Crystal Uptain CNM Work Phone: [employer].; [employer]. 06-21-2010 15:40-0500 Body surface area Derived from formula 1.92 m2 Crystal Uptain CNM Work Phone: [facility].; [employer]. 06-21-2010 15:40-0500 Body temperature 98.5 [degF] Colleen Cedillo CNM Work Phone: [employer]; [employer]. Comment on above: Method: Tympanic 06-21-2010 15:40-0500 Body weight 92.[address] Scribbles Mamadou CNM Work Phone: [employer]; [employer]. Encounters Encounter Date Encounter Type Care Provider Facility Start: 03-03-2025 ambulatory Amee Shrestha lity:[facility] Start: 02-08-2025 ambulatory Ning [place] Facility :[facility] Start: 02-06-2025 End: 02-06-2025 ambulatory Ning Oquendo Facility:[facility] Start: 01-31-2025 ambulatory Lillie Jobster PA Facil ity:[facility] Start: 01-30-2025 [facility] Start: 01-30-2025 End: 01-30-2025 ambulatory Mallory Freya Chopra Facility:[facility] Start: 01-25-2025 End: 01-25-[address] Amee Schaffer MD -[facility] Work Phone: Start: 01-25-2025 End: 01-25-2025 ambulatory [employer] PA-C Work Phone: -[facility] Start: 01-20-2025 End: 01-20-[address] Amee Schaffer MD -[facility] Work Phone: Start: 01-20-2025 End: 01-20-2025 ambulatory [employer] PA-C Work Phone: -[facility] Start: 01-06-2025 End: 01-06-2025 Patient encounter procedure Ning Oquendo CNM -[facility] Work Phone: Start: 01-06-2025 End: 01-06-2025 ambulatory [employer] PA-C Work Phone: -[facility] Start: 01-01-2025 ambulatory Amee Shrestha lity:KIERAN Start: 01-01-2025 Non-patient / Non-visit Dr. Sally Schaffer MD -[facility] Start: 01-01-2025 End: 01-01-2025 ambulatory [employer] PA-C Work Phone: -[facility] Start: 01-01-2025 End: 01-01-[address] Amee Schaffer MD -[facility] Work Phone: Start: 12-21-2024 End: 12-21-[address] Mallory Dover DO -[facility] Work Phone: Start: 12-21-2024 End: 12-21-2024 ambulatory [employer] PA-C Work Phone: -[facility] Start: 12-13-2024 End: 12-13-2024 ambulatory [employer] PA-C Work Phone: -Laboratory Start: 12-13-2024 End: 12-13-2024 Patient encounter procedure Bessie Mansfield SET UP INSPECTOR-C -Laboratory Work Phone: Start: 12-13-2024 End: 12-13-2024 ambulatory Bessie Mansfield SET UP INSPECTOR Facility:[facility] Start: 12-06-2024 End: 12-06-2024 ambulatory [employer] PA-C Work Phone: -[facility] Start: 12-06-2024 End: 12-06-2024 Patient encounter procedure Bessie Mansfield SET UP INSPECTOR-C -[facility] Work Phone: Start: 12-06-2024 End: 12-06-2024 ambulatory Bessie Mansfield SET UP INSPECTOR Facility:[facility] Start: 11-15-2024 End: 11-15-2024 Patient encounter procedure Bessie Delgadotings SET UP INSPECTOR-C -[facility] Work Phone: Start: 11-15-2024 End: 11-15-2024 ambulatory [employer] PA-C Work Phone: -[facility] Start: 10-24-2024 End: 10-24-2024 ambulatory [facility] Start: 10-17-2024 End: 10-17-2024 Patient encounter procedure Bessie Mansfield SET UP INSPECTOR-C -[facility] Work Phone: Start: 10-17-2024 End: 10-17-2024 ambulatory [employer] PA-C Work Phone: -[facility] Start: 10-10-2024 End: 10-10-2024 ambulatory AMEE SCHAFFER [facility] Start: 09-19-2024 End: 09-19-2024 Patient encounter procedure Ning DEMPSEY -[facility] Work Phone: Start: 09-19-2024 End: 09-19-2024 ambulatory Louise Jobster PA-C Work Phone: [facility] Work Phone: Start: 08-24-2024 End: 08-24-[address] Amee Schaffer MD -[facility] Work Phone: Start: 08-24-2024 End: 08-24-2024 ambulatory Amee Schaffer Facility:[facility] Start: 08-05-2024 End: 08-05-2024 Patient encounter procedure Ning DEMPSEY -[facility] Work Phone: Start: 08-05-2024 End: 08-05-2024 ambulatory [employer] PA-C Work Phone: [facility] Work Phone: Start: 08-05-2024 End: 08-05-2024 ambulatory Ning Oquendo Facility:[facility] Start: 07-29-2024 End: 07-29-2024 Patient encounter procedure Jenny So CNM -[facility] Work Phone: Start: 07-29-2024 End: 07-29-2024 ambulatory Louise [place] PA-C Work Phone: [facility] Work Phone: Start: 07-29-2024 End: 07-29-2024 ambulatory Jenny So Facility:[facility] Start: 07-21-2024 End: 07-21-2024 Patient encounter procedure Ning Jere CNM -[facility] Work Phone: Start: 07-21-2024 End: 07-21-2024 ambulatory Louisehelene GILES Facility:[facility] Start: 07-08-2024 Non-patient / Non-visit Hannah narayan RN -[facility] Work Phone: Start: 07-08-2024 ambulatory Hannah Mercado Facility :[facility] Start: 06-08-2024 End: 06-08-2024 Patient encounter procedure Leeann Hawkins NP-C -[facility] Work Phone: Start: 06-08-2024 End: 06-08-2024 Patient encounter status Leeann Hawkins SET UP INSPECTOR-C [facility] Start: 06-08-2024 End: 06-08-2024 ambulatory Leeann Hawkins Facility:[facility] Start: 04-27-2024 End: 04-27-2024 Office outpatient visit 15 minutes Crystal Uptain CNM Work Phone: [employer] [facility] Start: 01-27-2024 End: 01-27-2024 Orders Crystal Uptain CNM Work Phone: [employer] [facility]. Start: 12-22-2023 End: 12-22-2023 Office outpatient visit 15 minutes Crystal Uptain CNM Work Phone: [facility], [place]. Start: 11-25-2023 End: 11-26-2023 [facility] Start: 10-19-2023 End: 10-20-2023 Orders Crystal Uptain CNM Work Phone: [employer] Start: 09-09-2023 End: 09-09-2023 Orders Crystal Uptain CNM Work Phone: [employer] Start: 08-24-2023 End: 08-24-2023 Office outpatient visit 15 minutes Crystal Uptain CNM Work Phone: [employer] Start: 08-24-2023 Follow-up encounter Crystal Up tain CNM Work Phone: [employer] Start: 08-11-2023 End: 08-11-2023 Orders Crystal Uptain CNM Work Phone: [employer] Start: 06-05-2023 End: 06-05-2023 Orders Crystal Uptain CNM Work Phone: [employer] Start: 06-03-2023 End: 06-03-2023 ambulatory PA-C [employer] PA Work Phone: [facility] Work Phone: Start: 06-03-2023 End: 06-03-2023 Patient encounter procedure PA-C [employer] PA Work Phone: [facility]-Laboratory, Specimen Work Phone: Start: 06-03-2023 End: 06-03-2023 Patient encounter procedure PA-C Louise Jobster PA Work Phone: [facility] Work Phone: Start: 05-20-2023 End: 05-20-2023 Orders Crystal Uptain CNM Work Phone: [employer] Start: 05-13-2023 End: 05-13-2023 Orders Crystal Uptain CNM Work Phone: [employer] Start: 04-27-2023 End: 04-27-2023 Office outpatient visit 25 minutes Crystal Uptain CNM Work Phone: [employer]. Start: 04-15-2023 End: 04-15-2023 ambulatory PA-C Louise Jobster PA Work Phone: [facility] Work Phone: Start: 04-15-2023 End: 04-15-2023 Patient encounter procedure PA-C Louise Jobster PA Work Phone: [facility] Work Phone: Start: 03-25-2023 End: 03-25-2023 ambulatory PA-C Louise Jobster PA Work Phone: [facility] Work Phone: Start: 03-25-2023 End: 03-25-2023 Patient encounter procedure PA-C Louise Jobster [facility] Work [facility]: Start: 03-25-2023 End: 03-25-2023 Patient encounter procedure PA-C Louise [place] PA Work Phone: [facility] Work Phone: Start: 11-21-2020 End: 11-21-2020 Patient encounter procedure Crystal Uptain CNM Work Phone: [employer]. Start: 01-17-2020 End: 01-17-2020 Medication Crystal Uptain CNM Work Phone: [employer]. Start: 08-09-2019 End: 08-09-2019 Orders Crystal Uptain CNM Work Phone: [employer]. Start: 08-01-2019 End: 08-01-2019 Office outpatient visit 10 minutes Crystal Uptain CNM Work Phone: [employer]. Start: 06-23-2019 End: 06-23-2019 Office outpatient visit 15 minutes Crystal Uptain CNM Work Phone: [employer] Start: 05-23-2019 End: 05-23-2019 Office outpatient visit 15 minutes Crystal Uptain CNM Work Phone: [employer] Start: 02-14-2019 End: 02-14-2019 Office outpatient visit 10 minutes Crystal Uptain CNM Work Phone: [employer] Start: 01-13-2019 End: 01-13-2019 Office outpatient visit 25 minutes Crystal Uptain CNM Work Phone: [employer] Start: 2018 End: 2018 Office outpatient visit 25 minutes Crystal Uptain CNM Work Phone: [employer] Start: 09-07-2018 End: 09-07-2018 Patient encounter procedure Crystal Uptain CNM Work Phone: [employer] Start: 09-02-2018 End: 09-02-2018 Office outpatient visit 15 minutes Crystal Uptain CNM Work Phone: [employer] Start: 06-30-2018 End: 06-30-2018 Office outpatient visit 15 minutes Crystal Uptain CNM Work Phone: [employer] Start: 05-13-2018 End: 05-13-2018 Telephone follow-up Crystal Uptain CNM Work Phone: [employer] Start: 05-06-2018 Patient encounter procedure MALLORY AGUILAR [facility] Start: 04-29-2018 End: 04-29-2018 Patient encounter procedure NATHAN NOBLES [facility] Start: 04-22-2018 Patient encounter procedure RED ALBERTO [facility] Start: 04-14-2018 End: 04-14-2018 Patient encounter procedure WANDER POLLACK [facility] Start: 04-05-2018 End: 04-05-2018 Patient encounter procedure SHARAN JEFFREY [facility] Start: 03-08-2018 Patient encounter procedure SHARAN [facility] Start: 02-11-2018 End: 02-11-2018 Patient encounter procedure SHARAN [facility] Start: 01-28-2018 End: 01-28-2018 Patient encounter procedure PORSHA YUN [facility] Start: 01-11-2018 Patient encounter procedure SHARAN [facility] Start: 08-04-2017 End: 08-04-2017 Patient encounter procedure Crystal Uptain CNM Work Phone: [employer] Start: 06-24-2017 End: 06-24-2017 Office outpatient visit 10 minutes Crystal Uptain CNM Work Phone: [employer] Start: 06-18-2017 End: 06-18-2017 Office outpatient visit 15 minutes Crystal Uptain CNM Work Phone: [employer] Start: 05-21-2017 End: 05-21-2017 Office outpatient visit 15 minutes Crystal Uptain CNM Work Phone: [employer] Start: 04-21-2017 End: 04-21-2017 Medication Crystal Uptain CNM Work Phone: [employer] Start: 03-25-2017 End: 03-25-2017 Patient encounter procedure Crystal Uptain CNM Work Phone: [employer] Start: 02-26-2017 End: 02-26-2017 Medication Crystal Uptain CNM Work Phone: [employer] Start: 02-24-2017 End: 02-24-2017 Patient encounter procedure Crystal Uptain CNM Work Phone: [employer] Start: 10-16-2016 End: 10-16-2016 Office outpatient visit 15 minutes Crystal Uptain CNM Work Phone: [employer] Start: 07-14-2016 End: 07-14-2016 Patient encounter procedure Crystal Uptain CNM Work Phone: [employer] Start: 04-09-2016 End: 04-09-2016 Orders Crystal Uptain CNM Work Phone: [employer] Start: 04-09-2016 End: 04-09-2016 Medication Crystal Uptain CNM Work Phone: [employer] Start: 04-02-2016 End: 04-02-2016 Patient encounter procedure Crystal Uptain CNM Work Phone: [employer] Start: 12-03-2015 End: 12-03-2015 Nursing evaluation of patient and report Crystal Uptain CNM Work Phone: [employer] Start: 11-26-2015 End: 11-26-2015 Orders Crystal Uptain CNM Work Phone: [employer] Start: 09-14-2015 End: 09-14-2015 Office outpatient visit 15 minutes Crystal Uptain CNM Work Phone: [employer] Start: 03-06-2015 End: 03-06-2015 Office outpatient visit 15 minutes Crystal Uptain CNM Work Phone: [employer] Start: 10-05-2014 End: 10-05-2014 Office outpatient visit 15 minutes Crystal Uptain CNM Work Phone: [employer] Start: 04-14-2014 End: 04-14-2014 Patient encounter procedure Crystal Uptain CNM Work Phone: [employer] Start: 03-13-2014 End: 03-13-2014 Nursing evaluation of patient and report Crystal Uptain CNM Work Phone: [employer] Start: 10-14-2013 End: 10-14-2013 Patient encounter procedure Crystal Uptain CNM Work Phone: [employer] Start: 01-12-2013 End: 01-12-2013 Patient encounter procedure Crystal Uptain CNM Work Phone: [employer] Start: 10-08-2012 End: 10-08-2012 Patient encounter procedure Crystal Uptain CNM Work Phone: [employer] Start: 08-17-2012 End: 08-17-2012 Patient encounter procedure Crystal Uptain CNM Work Phone: [employer]. Start: 08-17-2012 End: 08-17-2012 Routine general medical examination at a [facility] Jame Wolfe MD Work Phone: [employer]. Start: 06-24-2012 End: 06-24-2012 Patient encounter procedure Crystal Uptain CNM Work Phone: [employer]. Start: 12-25-2011 End: 12-25-2011 Patient encounter procedure Crystal Uptain CNM Work Phone: [employer]. Start: 09-22-2011 End: 09-22-2011 Patient encounter procedure Crystal Uptain CNM Work Phone: [employer]. Start: 07-23-2011 End: 07-23-2011 Patient encounter procedure Crystal Uptain CNM Work Phone: [employer] Start: 06-13-2011 End: 06-13-2011 Patient encounter procedure Crystal Uptain CNM Work Phone: [employer] Start: 02-24-2011 End: 02-24-2011 Patient encounter procedure Crystal Uptain CNM Work Phone: [employer]. Start: 01-07-2011 End: 01-07-2011 Patient encounter procedure Crystal Uptain CNM Work Phone: [employer]. Start: 06-21-2010 End: 06-21-2010 Patient encounter procedure Crystal Uptain CNM Work Phone: [employer] Patient encounter procedure Mary Haji MA [employer]. Patient encounter procedure Louise Moon PA-C Work Phone: [employer] Patient encounter procedure Aracelis Dueñas LPN [facility]. Procedures Date Procedure Procedure Detail Performing Clinician Start: 12-06-2024 Serologic test for syphilis Louise Moon PA-C Work Phone: Start: 08-05-2024 Urine culture Louise CHANEYC Work Phone: Start: 07-29-2024 Hepatitis C antibody [...] HCV Quant by PCR testing - HCVPCR #[id number] Non Reactive: < 0.8 Equivocal: >/= 0.8 to < 1.0 Reactive: >/= 1.0The CDC requires that a reactive/equivocal HCV antibody result be sent out for confirmation. HCV Quant by PCR testing. Start: 07-29-2024 Rubella IgG measurement Louise Moon PA-C Work Phone: Comment on above: Antibody Result: Int erpretationNon-Reactive: Non- ImmuneReactive: ImmuneThe following results were obtained with the [employer] Rubella IgG assay. Results from assays of other manufacturers cannot be used interchangeably. Start: 07-29-2024 Serologic test for syphilis Louise Moon PA-C Work Phone: Start: 07-29-2024 Urine culture Louise CHANEYC Work Phone: Start: 06-03-2023 Genital Culture PR-Mynor Howard daina Moon PR Work Phone: Start: 06-03-2023 Investigation of transfusion reaction PA-C Louise GILES Work Phone: Start: 02-18-2023 End: 02-18-2023 Microscopic examination of cervical Papanicolaou smear Mary Haji MA Start: 11-21-2020 End: 11-21-2020 Depression screening Louise CurryC Work Phone: Start: 11-21-2020 End: 11-21-2020 Scr dep neg, no plan reqd Louise Marcelo Daquan ls PA-C Work Phone: Start: 2018 End: 11-30-2020 Polysom 6/>yrs sleep 4/> addl anne marie attnd Louise Moon PA-C Work Phone: Start: 09-02-2018 End: 09-07-2018 Us abdominal real time w/image limited Louise D Sarai PA-C Work Phone: Start: 04-20-2018 End: 04-20-2018 Operation on gallbladder Mary Haji MA Start: 08-04-2017 End: 08-12-2017 Us breast uni real time with image complete Louisesaniya Moon PA-C Work Phone: Start: 08-04-2017 End: [...] Phone: Section - 2 Mary Haji MA Section - 2 Patrica Dueñas LPN Section - 2 Ren Wright RN Section - 2 Ren Wright RN H/O: section S/P ERIK GILES Work Phone: Comment on above: for twin . desires TOLAC. H/O: section History of delivery, currently Louise Moon PA-C Work Phone: Comment on above: Desires Desires . C/S w/ SM. H/O: section History of delivery, currently Jenny So CNM H/O: section History of delivery, currently Dr. Amee Schaffer MD H/O: section History of delivery, currently Ning DEMPSEYM H/O: section History of delivery, currently Bessie Mansfield SET UP INSPECTOR-C H/O: section History of delivery, currently Bessie Mansfield SET UP INSPECTOR-C H/O: section History of delivery, currently Bessie Mansfield SET UP INSPECTOR-C H/O: section History of delivery, currently Dr. Mallory Dover DO H/O: section History of delivery, currently Ning Oquendo CNM H/O: section History of delivery, currently Dr. Amee Schaffer MD H/O: section History of delivery, currently Dr. Amee Schaffer MD Plan of Treatment Date Care Activity Detail Author Start: 01-01-2025 Nonstress test [facility] Start: 01-01-2025 Obstetric monitoring [facility] Start: 01-01-2025 Vital signs measurements [facility] Start: 01-01-2025 [facility] Start: 01-01-2025 Patient discharge [facility] Start: 12-06-2024 CBC W Auto Differential panel - Blood [facility] Start: 12-06-2024 Measurement of glucose 2 hours after glucose challenge for glucose tolerance test [facility] Start: 12-06-2024 Serologic test for syphilis [facility] Start: 12-06-2024 End: 12-06-2024 [facility] Start: 07-29-2024 Chlamydia deoxyribonucleic acid detection [facility] Start: 07-27-2024 Patient encounter procedure Medical; EXTENDED RTN - 3 month rtn-NEEDS TO PAY COPAY! [employer]. Start: 27-Jul-2024 09:20-04:00 ARAVIND Cedillo Appointment Request [employer]. Start: 03-22-2024 Patient encounter procedure Medical; EXTENDED RTN - 3 MO FU [employer]. Start: 22-Mar-2024 11:00-05:00 ARAVIND Cedillo Appointment Request [employer]. Start: 12-22-2023 Patient encounter procedure Medical; EXTENDED RTN - 3 mo f/u [employer]. Start: 22-Dec-2023 11:00-04:00 ARAVIND Cedillo Appointment Request [employer]. Start: 11-24-2023 Patient encounter procedure Medical; EXTENDED RTN - 3 mo f/u [employer]. Start: 24-Nov-2023 10:00-04:00 ARAVIND Cedillo Appointment Request [employer]. Start: 08-24-2023 Patient encounter procedure [facility] [employer]. Start: 04-15-2023 Procedure [facility] Start: 04-15-2023 Dehydroepiandrosterone sulfate (DHEA-S) [Mass/volume] in Serum or Plasma [facility] Start: 04-15-2023 Testosterone measurement [facility] Start: 03-25-2023 Liquid based cervical cytology screening [facility] 17-Hydroxyprogestero ne [Mass/volume] in Serum or Plasma [facility] CBC W Auto Different ial panel - Blood [facility] Dehydroepiandrostero ne sulfate (DHEA-S) [Mass/volume] in Serum or Plasma [facility] Erythrocyte mean cor puscular volume determination [facility] anatomy study [facility] anatomy study [facility] Hematocrit [Volume F raction] of Blood [facility] Hemoglobin [Mass/vol ume] in Blood [facility] Hemoglobin A1c/Hemog lobin.total in Blood [facility] Leukocytes [#/volume] in Blood [facility] Mean corpuscular hem oglobin concentration determination [facility] Mean corpuscular hem oglobin determination [facility] Measurement of gluco se 2 hours after glucose challenge for glucose tolerance test [facility] Neisseria gonorrhoea e rRNA [Presence] in Unspecified specimen by CUCO with probe detection [facility] Neutrophil count [facility] Neutrophil percent d ifferential count [facility] Path report.final Dx Spec [facility] Patient Education Kick Counts ED False Labor OB Triage: Return to Hospital or Notify Physician if you Experience: [facility] Work Phone: PCR test for Chlamyd ia trachomatis [facility] Platelets [#/volume] in Blood [facility] Red blood cell count [facility] Red cell distributio n width determination [facility] Serologic test for syphilis [facility] T4 free measurement [facility] Testosterone Free [M ass/volume] in Serum or Plasma [facility] Testosterone measurement [facility] Thyroid stimulating hormone measurement [facility] Triiodothyronine, fr ee measurement [facility] Ultrasound scan for growth [facility] Vitamin D, 1,25-dihy droxy measurement [facility] Immunizations Immunization Date Immunization Notes Care Provider Stephen cho 12-06-2024 tetanus toxoid, redu alejandro diphtheria toxoid, and acellular pertussis vaccine, adsorbed [facility] ERIK Work Phone: [facility] 03-13-2014 tetanus toxoid, redu alejandro diphtheria toxoid, and acellular pertussis vaccine, adsorbed Crystal Uptain CNM Work Phone: [facility] [place] Comment on above: Site: Deltoid (Left) VIS Given: * TDAP, Td (08/26/2012) 12-31-2001 diphtheria, tetanus toxoids and acellular pertussis vaccine Crystal Uptain CNM Work Phone: [facility]. 10-19-2001 measles, mumps and rubella virus vaccine Crystal Uptain CNM Work Phone: [facility] 10-19-2001 poliovirus vaccine, inactivated Crystal Uptain CNM [facility] 04-06-1998 diphtheria, tetanus toxoids and acellular pertussis vaccine Crystal Uptain CNM Work Phone[facility] 04-06-1998 haemophilus influenz ae type b vaccine, PRP-T conjugate Crystal Uptain CNM Work Phone: [facility] 11-29-1997 measles, mumps and rubella virus vaccine Crystal Uptain CNM Work Phone: [facility] 11-29-1997 poliovirus vaccine, inactivated Crystal Uptain CNM Work Phone: [facility] 05-12-1997 diphtheria, tetanus toxoids and acellular pertussis vaccine Crystal Uptain CNM Work Phone: [facility] 05-12-1997 haemophilus influenz ae type b vaccine, PRP-T conjugate Crystal Uptain CNM Work Phone: [facility] 05-12-1997 hepatitis B vaccine, pediatric or pediatric/adolescent dosage Crystal Uptain CNM Work Phone: [facility] 02-24-1997 diphtheria, tetanus toxoids and acellular pertussis vaccine Crystal Uptain CNM Work Phone: [facility] 02-24-1997 haemophilus influenz ae type b vaccine, PRP-T conjugate Crystal Uptain CNM Work Phone: [facility] 02-24-1997 poliovirus vaccine, inactivated Crystal Uptain CNM Work Phone: [facility] 01-03-1997 diphtheria, tetanus toxoids and acellular pertussis vaccine [employer] Work Phone: [facility] 01-03-1997 haemophilus influenz ae type b vaccine, PRP-T conjugate [employer] Work Phone: [facility] 01-03-1997 poliovirus vaccine, inactivated [employer] Work Phone: [facility] 1996 hepatitis B vaccine, pediatric or pediatric/adolescent dosage [employer] Work Phone: [facility] 1996 hepatitis B vaccine, pediatric or pediatric/adolescent dosage [employer] Work Phone: [facility] Payers Date Payer Category Payer Unknown [id number] 2024 Self-pay [id number] 2024 Unknown [id number] 1996 Unknown [id number] 2.16. 40.1.978817.3.579.2 1996 Unknown [id number] .16.8 40.1.011855.3.579.2 1996 Unknown [id number] .16.8 40.1.372611.3.579.2 1996 Unknown [id number] .16.8 40.1.445302.3.579.2 1996 Unknown [id number] 2.16.8 40.1.718340.3.579.2 1996 Unknown [id number] 2.16.8 40.1.733381.3.579.2.479 1996 Unknown [id number] 2.16.8 40.1.813722.3.579.2.479 1996 Unknown [id number] 2.16.8 40.1.111059.3.579.2.479 1996 Unknown [id number] .16.8 40.1.509032.3.579.2.479 1996 Unknown [id number] .16.8 40.1.595659.3.579.2.479 1996 Unknown [id number] .16.8 40.1.155148.3.579.2.479 1996 Unknown [id number] .16.8 40.1.625497.3.579.2.651 1996 Unknown [id number] ..[id number] 40.1.800369.3.579.2.651 1996 Unknown [id number] .16.8 40.1.308328.3.579.2.651 Medicaid [id number] Unknown [id number] Unknown [facility] [id number] Unknown [employer] [facility] [id number] Unknown Unknown [id number] 2.16.8 40.1.385116.3.579.2.462 Unknown [id number] 2.16.8 40.1.235541.3.579.2.462 Unknown [id number] 2.16.8 40.1.806564.3.579.2.462 Unknown [id number] 2.16.8 40.1.899478.3.579.2.462 Unknown [id number] 2.16.8 40.1.553683.3.579.2.462 Unknown [id number] 2.16.8 40.1.471394.3.579.2.462 Unknown [id number] 2.16.8 40.1.587714.3.579.2.462 Unknown [id number] 2.16.8 40.1.217193.3.579.2.462 Unknown [id number] 2.16.8 40.1.519355.3.579.2.462 Unknown [id number] 2.16.8 40.1.853433.3.579.2.462 Unknown [id number] 2.16.8 40.1.013420.3.579.2.462 Unknown [id number] 2.16.8 40.1.861585.3.579.2.462 Unknown [id number] 2.16.8 40.1.385275.3.579.2.462 Unknown [id number] 2.16.8 40.1.463725.3.579.2.462 Unknown [id number] 2.16.8 40.1.916230.3.579.2.462 Unknown [id number] 2.16.8 40.1.155706.3.579.2.462 Unknown [id number] 2.16.8 40.1.838613.3.579.2.462 Unknown [id number] 2.16.8 40.1.099767.3.579.2.462 Unknown [id number] 2.16.8 40.1.488817.3.579.2.462 Unknown [id number] 2.16.8 40.1.512358.3.579.2.462 Unknown [id number] 2.16.8 40.1.952129.3.579.2.462 Unknown [id number] 2.16.8 40.1.630572.3.579.2.462 Unknown [id number] 2.16.8 40.1.668194.3.579.2.462 Unknown [id number] 2.16.8 40.1.675253.3.579.2.462 Unknown [id number] 2.16.8 40.1.876203.3.579.2.462 Unknown [id number] 2.16.8 40.1.659193.3.579.2.462 Social History Date Type Detail Facility Start: 03-25-2023 End: 06-03-2023 Tobacco smoking status NHIS Unknown if ever smoked [facility] Start: 05-10-2018 None [facility] Start: 1995 Sex Assigned At Female [facility] Child(bobby) Child(bobby) [employer] [facility] [employer] Tobacco Use: Tobacco Use: ; N ever smoker. [employer] Tobacco/Smoke Exposure: Tobacco/ Smoke Exposure: ; Family members smoke indoors. [employer] Family members s moke indoors [employer]; [employer]. Work Phone: Start: 07-08-2024 End: 08-04-2024 Never smoked tobacco [facility] Start: 08-01-2024 End: 08-09-2024 Sex Female (finding) [facility] Sex Female [facility] Clinical Notes 03-25-2023 to 01-25-2025 Note Date & Type Note Facility 01-25-2025 Progress note [facility] 01-06-2025 Progress note [facility] 01-06-2025 Progress note Note Date/Time January 06, 2025 2:16pm [facility] [address] [place] [address], [address] [place] [address] OFFICE VISIT Date of Service: 01/06/25 MR#: [id number] Acct: [id number] Name: PATTY ALVAREZ Rep #: [id number] : 1995 Provider: ARAVIND Oquendo Age/Sex: 29/F Location: [facility] Status: Signed Intake Vital Signs 12/06/24 15:34 01/01/25 09:37 01/06/25 13:51 01/06/25 13:53 Height 5 ft 3 in 5 ft 3 in 5 ft 3 in 5 ft 3 in Weight: 285 lb 6 oz BMI 50.5 BP 112/72 Intake Visit Reasons: 32wk ob * Jogger Operator Required: No Is patient in pain?: No Allergies Penicillins (PCN) Allergy (Verified 01/06/25 13:52) Rash Medications ?Medication ?Instructions ?Recorded ?Confirmed ?Type docosahexaenoic acid 200 mg mg PO 07/08/24 01/06/25 Hi story capsule ( DHA) ondansetron 4 mg disintegrating 4 mg PO Q6H PRN nausea and 09/07/24 01/06/25 Rx tablet vomiting #30 tabs methylprednisolone 4 mg tablets in See Rx Instructions PO PER PKG DIR 11/15/24 01/06/25 Rx a dose pack (Medrol (Melissa)) #21 tabs vits,calcium no.78-iron 1 tab PO Q24H pregnan cy 01/01/25 01/06/25 History fumarate-folic acid 29 mg-1 mg tablet (Prenatabs FA) Last Menstrual Period: 05/22/24 Zika: Zika virus [...] 2 current occupational status: employed 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 Date Name GA/Weeks Outcome Route Bth Weight Gen Labor Lgth Anesthesia Del [facility] Provider FOB 05/10/18 Andreina 38 live - full term 6lb 1oz Female [facility] [place] 05/10/18 Stefania 38 live - full term 6lbs 5oz Female [facility] [place] 10/15/20 10 spontaneous Delivery Date: 05/10/18 Last Updated by: Laine Harden Twins; Breech/Breech Delivery Date: 05/10/18 Last Updated by: Laine Harden Twins; Breech/Breech Delivery Date: 10/15/20 Last Updated by: Hannah Mercado RN D&C - [facility] HPI 32wk ob * Details: PATTY ALVAREZ is a 29 year old who presents for routine OB visit. OB Visit LITA Calculator Estimated Delivery Date Method Current WG Current Estimate 02/26/25 LMP (Certain) 32w 5d Expected Delivery Route/Plan Labor Preferences- CB/BF classes: [...] Relevant counseling for the gestational age provided. Continue routine care and follow up unless otherwise noted in visit notes/problem list details Initial Weight: 269 lb Date -?-?-?-?-?-?-?-?-?-?-?-?- EGA Weight BP Urine Prot -?-?-?-?-?-?-?-?-?-?-?-?- Glucose FHR FuHt Pres Dilation -?-?-?-?-?-?-?-?-?-?-?-?- Effaced St Visit Note 07/29/24 -?-?-?-?-?-?-?-?-?-?-?-?- 9w 5d 269 lb 4 oz (+4 oz) 125/81 -?-?-?-?-?-?-?-?-?-?-?-?- 164 -?-?-?-?-?-?--?-?-?-?-?-?- LC- CRL con with lmp. declines nipt. LC- CRL con with lmp. declin es nipt. desires . hgba1c added for obesity 08/24/24 -?-?-?-?-?-?-?-?-?-?-?-?- 13w 3d 269 lb 6 oz (+6 oz) 125/84 Negative -?-?-?-?-?-?-?-?-?-?-?-?- Negative 160 -?-?-?-?-?-?-?-?-?-?-?-?- SM- no vb crampi ng 09/19/24 -?-?-?-?-?-?-?-?-?-?-?-?- 17w 1d 273 lb (+4 lb) 122/78 Negative -?-?-?-?-?-?-?-?-?-?-?-?- Negative 155 -?-?-?-?-?-?-?-?-?-?-?-?- kw- no vb/bigg ng. no flutters yet. US set up for 10/10 with POLO. has rash on upper thighs-benadryl cream and Claritin. 10/17/24 -?-?-?-?-?-?-?-?--?-?-?-?- 21w 1d 278 lb 4 oz (+9 lb 4 oz) 120/74 Negative -?-?-?-?-?-?-?-?-?-?-?-?- Negative 147 -?-?-?-?-?-?-?-?-?-?-?-?- MH-No VB. Hilario Salas Reviewed anatomy US. 11/15/24 -?-?-?-?-?-?-?-?-?-?-?-?- 25w 2d 273 lb 8 oz (+4 lb 8 oz) 118/78 Negative -?-?-?-?-?-?-?-?-?-?-?-?- Negative 153 -?-?-?-?-?-?-?-?-?-?-?-?- MH-No VB. Hilario salas Lar. Has raised itchy rash entire torso to upper thighs. Has had about 4 weeks. Went to urgent care then PCP. Normal CMP and ANABEL. Claritan and hydroxyzine not helpful. reviewed. Medrol pk and will see derm. 12/06/24 -?-?-?-?-?-?-?-?-?-?-?-?- 28w 2d 281 lb 2 oz (+12 lb 2 oz) 126/72 -?-?-?-?-?-?-?-?-?-?-?-?- 145 29 -?-?-?-?-?-?-?-?-?-?-?-?- MH-No VB, LOF. G ocori FM. Derm confirmed PUPPS. Has improved. 28 wk labs pending. Tdap 12/21/24 -?-?-?-?-?-?-?-?-?-?-?-?- 30w 3d 283 lb 9 oz (+14 lb 9 oz) 120/70 Negative -?-?-?-?-?-?-?-?-?-?-?-?- Negative 135 34 -?-?-?-?-?-?-?-?-?-?-?-?- CLOTILDE- flower discuss ion today about . patient's wishes are to go as long as possible (41 weeks) she understands we do not induce, rather augment as needed with a prior scar. She is obese with chance of success being only 38%. 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 Consent given for her to read more and bring back next visit. 01/06/25 -?-?-?-?-?-?-?-?-?-?-?-?- 32w 5d 285 lb 6 oz (+16 lb 6 oz) 112/72 Negative -?-?-?-?-?-?-?-?-?-?-?-?- Negative 135 37 -?-?-?-?-?-?-?-?-?-?-?-?- KW- no vb/ctx/lo f. good fm. rash is much better. discussed getting 41 week c/s set up. will need NSTs at 34 weeks and 36 week US ACOG First Trimester First Trimester: Desire for [...] Management Plans, Labor support person(s), Immediate Larc, Circumcision preference, Movement Monitoring, Signs and Symptoms of Preeclampsia, Feeding No and Family Medical Leave or Disability Forms; Discussed Trial of Labor after Counseling ROS Const Reports system reviewed and no [...] Office Urine Glucose Negative Last Edit by Yolande Crum on 01/06/25 13:57 Office Urine Protein Negative Last Edit by Yolande Crum on 01/06/25 13:57 Coding Level of Care Code OB Routine Diagnoses Abnormal glucose affecting O99.810 PUPP (pruritic urticarial papules and plaques of ) O26.86 History of miscarriage, currently O09.299 History of delivery, currently O34.219 Obesity affecting in second trimester, unspecified obesity type O99.212 Obesity type affecting : unspecified obesity Trimester: second trimester Supervision of high risk in third trimester O09.93 Trimester: third trimester 32 weeks gestation of Z3A.32 Weeks of gestation: 32 weeks Anxiety and depression F41.9; F32.9 Assessment and Plan Assessment and Plan (1) Abnormal glucose affecting : Status: Acute Comment: normal 3 hr GTT (2) PUPP (pruritic urticarial papules and plaques of ): Status: Acute Comment: medrol roberto hayden. Confirmed by derm (3) History of miscarriage, currently : Status: Acute Comment: 2020- D&C @ 10wks; Trisomy 21 (4) History of delivery, currently : Status: Acute Comment: Desires (5) Obesity affecting : Status: Acute Qualifiers: Obesity type affecting : unspecified obesity Trimester: second trimester Qualified Code(s): O99.212 - Obesity complicating , second trimester Comment: BMI 46.1; HgBA1C ordered w/NOB (6) Supervision of high-risk : Status: Acute Qualifiers: Trimester: third trimester Qualified Code(s): O09.93 - Supervision of high risk , unspecified, third trimester Comment: PRR,, LITA 02/26/25, PC: Andreina & Stefania *TWINS*, BF Will (7) : Status: Acute Qualifiers: Weeks of gestation: 32 weeks Qualified Code(s): Z3A.32 - 32 weeks gestation of Comment: Discussed genetic/carrier testing - undecided (8) Anxiety and depression: Status: Acute Comment: IN [...] you fallen in the past year?: No 01/06/25 1416 <Electronically signed by Ning lim CNM> Date _ Ning Oquendo CNM Cosigner Signature: Date (if applicable) CC: ~ [facility] Work Phone: 1(898) 871-844806-30-2025 Evaluation note* Diagnosis Onset Date Resolution Status Admit Date Anxiety and depression acute Ju 2024 3:32pm [...] Supervision of high-risk acute December 21 10:15am Abnormal glucose affecting acute January 06, 2025 1:49pm Anxiety and depression acute Se ptember 2024 1:49pm History of delivery , currently acute December 1:49pm History of miscarriage, currently acute December 1:49pm Obesity affecting acute January 06, 2025 1:49pm acute December 1:49pm PUPP (pruritic urticarial papules and plaques of ) acute January 06, 2025 1:49pm Supervision of high-risk acute January 06, 2025 1:49pm Abnormal glucose affecting acute January 20 2:22pm Anxiety and depression acute Oc 2024 2:22pm History of delivery , currently acute January 20, 2025 2:22pm History of miscarriage, currently acute January 20, 2025 2:22pm Obesity affecting acute January 20, 2025 2:22pm acute January 20 2:22pm PUPP (pruritic urticarial papules and plaques of ) acute January 20 2:22pm Supervision of high-risk acute January 20 2:22pm [facility] Work Phone: 1(509) 224-687506-30-2025 Evaluation note* Diagnosis Onset Date Resolution Status Admit Date Anxiety and depression acute Ju 2024 3:32pm History of delivery , currently acute October 17 3:32pm History of miscarriage, currently acute October 17 3:32pm Obesity affecting acute October 17, 2024 3:32pm acute October 17 3:32pm Supervision of high-risk acute October 17, 2024 3:32pm Anxiety and depression acute 2024 1:32pm History of delivery , currently acute November 15 1:32pm History of miscarriage, currently acute November 15 1:32pm Obesity affecting acute November 15, 2024 1:32pm acute November 15 1:32pm PUPP (pruritic urticarial papules and plaques of ) acute November 15, 2024 1:32pm Supervision of high-risk acute November 15, 2024 1:32pm Anxiety and depression acute [facility] 2024 3:31pm History of delivery , currently acute December 06, 2024 3:31pm History of miscarriage, currently acute December 06, 2024 3:31pm Obesity affecting acute December 06, 2024 3:31pm acute December 06 3:31pm PUPP (pruritic urticarial papules and plaques of ) acute December 06 3:31pm Supervision of high-risk acute December 06 3:31pm Abnormal glucose affecting acute December 21 10:15am Anxiety and depression acute Se pt2024 10:15am History of delivery , currently acute December 10:15am History of miscarriage, currently acute December 10:15am Obesity affecting acute December 21, 2024 10:15am acute December 21, 2024 10:15am PUPP (pruritic urticarial papules and plaques of ) acute December 21 10:15am Supervision of high-risk acute December 21 10:15am Abnormal glucose affecting acute January 06, 2025 1:49pm Anxiety and depression acute Se ptember 2024 1:49pm History of delivery , currently acute December 1:49pm History of miscarriage, currently acute December 1:49pm Obesity affecting acute January 06, 2025 1:49pm acute December 1:49pm PUPP (pruritic urticarial papules and plaques of ) acute January 06, 2025 1:49pm Supervision of high-risk acute January 06, 2025 1:49pm Abnormal glucose affecting acute January 20 2:22pm Anxiety and depression acute Oc 2024 2:22pm History of delivery , currently acute January 20, 2025 2:22pm History of miscarriage, currently acute January 20, 2025 2:22pm Obesity affecting acute January 20, 2025 2:22pm acute January 20 2:22pm PUPP (pruritic urticarial papules and plaques of ) acute January 20 2:22pm Supervision of high-risk acute January 20 2:22pm Abnormal glucose affecting acute January 25 9:59am Anxiety and depression acute Oc tob2024 9:59am History of delivery , currently acute January 25, 2025 9:59am History of miscarriage, currently acute January 25, 2025 9:59am Obesity affecting acute January 25, 2025 9:59am acute January 25, 2 025 9:59am PUPP (pruritic urticarial papules and plaques of ) acute January 25 9:59am Supervision of high-risk acute January 25 9:59am [facility] Work Phone: 1(524) 798-635506-02-2025 Evaluation note* Diagnosis Onset Date Resolution Status Admit Date Anxiety and depression acute 2024 2:08pm History of delivery , currently acute September 19 2:08pm History of miscarriage, currently acute September 19 2:08pm Obesity affecting acute September 19, 2024 2:08pm acute September 19, 2024 2:08pm Supervision of high-risk acute September 19, 2024 2 :08pm Anxiety and depression acute 2024 3:32pm History of delivery , currently acute October 17 3:32pm History of miscarriage, currently acute October 17 3:32pm Obesity affecting acute October 17, 2024 3:32pm acute October 17 3:32pm Supervision of high-risk acute October 17, 2024 3:32pm Anxiety and depression acute [facility] 2024 1:32pm History of delivery , currently acute November 15 1:32pm History of miscarriage, currently acute November 15 1:32pm Obesity affecting acute November 15, 2024 1:32pm acute November 15 1:32pm PUPP (pruritic urticarial papules and plaques of ) acute November 15, 2024 1:32pm Supervision of high-risk acute November 15, 2024 1:32pm Anxiety and depression acute [facility] 2024 3:31pm History of delivery , currently [...] Supervision of high-risk acute December 21 10:15am [facility] Work Phone: 1(284) 498-335406-02-2025 Evaluation note* Diagnosis Onset Date Resolution Status Admit Date Anxiety and depression acute 2024 2:08pm History of delivery , currently acute September 19 2:08pm History of miscarriage, currently acute September 19 2:08pm Obesity affecting acute September 19, 2024 2:08pm acute September 19, 2024 2:08pm Supervision of high-risk acute September 19, 2024 2 :08pm Anxiety and depression acute ne 2024 3:32pm History of delivery , currently acute October 17 3:32pm History of miscarriage, currently acute October 17 3:32pm Obesity affecting acute October 17, 2024 3:32pm acute October 17 3:32pm Supervision of high-risk acute October 17, 2024 3:32pm Anxiety and depression acute ly 2024 1:32pm History of delivery , [...] December 21 10:15am Anxiety and depression acute Se 2024 10:15am History of delivery , currently acute December 10:15am History of miscarriage, currently acute December 10:15am Obesity affecting acute December 21, 2024 10:15am acute December 21, 2024 10:15am PUPP (pruritic urticarial papules and plaques of ) acute December 21 10:15am Supervision of high-risk acute December 21 10:15am Abnormal glucose affecting acute January 06, 2025 1:49pm Anxiety and depression acute Se pt2024 1:49pm History of delivery , currently acute December 1:49pm History of miscarriage, currently acute December 1:49pm Obesity affecting acute January 06, 2025 1:49pm acute December 1:49pm PUPP (pruritic urticarial papules and plaques of ) acute January 06, 2025 1:49pm Supervision of high-risk acute January 06, 2025 1:49pm [facility] Work Phone: 1(129) 656-200706-02-2025 [facility] [address] [place] [address], [address] [place] [address] OFFICE VISIT Date of Service: 09/19/24 MR#: [id number] Acct: [id number] Name: AVELINOPATTY STOLL Rep #: [id number] : 1995 Provider: ARAVIND Oquendo Age/Sex: 28/F Location: [facility] Status: Signed Intake Vital Signs 07/29/24 14:29 08/24/24 14:44 09/19/24 14:11 Height 5 ft 3 in 5 ft 3 in 5 ft 3 in Weight: 273 lb BMI 48.3 BP 122/78 H Intake Visit Reasons: 17 wk ob * Chief Complaint: 17wk OB Jogger Operator Required: No Is patient in pain?: No [...] 2 current occupational status: employed 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 current occupational exposures/hazards: No pets [...] times per week duration: < 15 minutes/day karo/lutheran: None seatbelt use: always do you feel [...] 38 live [facility] Stefania 38 live - full term 6lbs 5oz [facility] 10/15/20 10 spontaneous Delivery Date: 05/10/18 Last Updated by: Laine Harden Twins; Breech/Breech Delivery Date: 05/10/18 Last Updated by: Laine Harden Twins; Breech/Breech Delivery Date: 10/15/20 Last Updated by: Hannah Mercado RN D&C - [facility] HPI 17 wk ob * Details: PATTY [...] yet. US set up for 10/10 with [facility]. has rash on upper thighs-benadryl cream and Claritin. ACOG First Trimester First Trimester: Desire for , Alcohol, Tobacco Cessation, Illicit/Recreational Drug/Substance Use, Intimate Partner Violence, Barriers to care, Unstable Housing, Communication Barriers, Environmental/Work Hazards, Anticipated Course of Care, Toxoplasmosis Precations, Use of Any med ications, Sexual activity, Exercise, Dental Care, Sauna/Hot tub [...] information and see below for orders placed atthis visit. [place] appropriate handout given. Clinical Quality Measures Falls Risk Screening/Assistive Devices Have you fallen in the past year?: No 09/19/24 1439 s CNM> Date _ Ning Oquendo CNM Cosigner Signature: Date (if applicable) CC: ~ [facility]06-02-2025 Progress note Author Ning Oquendo [facility] Note Date/Time September 19, 2024 2:39p m [facility] [address] [place] [address], [address] [place] [address] OFFICE VISIT Date of Service: 09/19/24 MR#: [id number] Acct: [id number] Name: PATTY ALVAREZ Rep #: [id number] : 1995 Provider: ARAVIND Oquendo Age/Sex: 28/F Location: [facility] Status: Signed Intake Vital Signs 07/29/24 14:29 08/24/24 14:44 09/19/24 14:11 Height 5 ft 3 in 5 ft 3 in 5 ft 3 in Weight: 273 lb BMI 48.3 BP 122/78 H Intake Visit Reasons: 17 wk ob * Chief Complaint: 17wk OB Jogger Operator Required: No Is patient in pain?: No [...] 2 current occupational status: employed 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 current occupational exposures/hazards: No pets [...] times per week duration: < 15 minutes/day karo/lutheran: None seatbelt use: always do you feel [...] 38 live - full term 6lb 1oz [facility] 05/10/18 Stefania 38 live - full term 6lbs 5oz [facility] 10/15/20 10 spontaneous Delivery Date: 05/10/18 Last Updated by: Laine Harden Twins; Breech/Breech Delivery Date: 05/10/18 Last Updated by: Laine Harden Twins; Breech/Breech Delivery Date: 10/15/20 Last Updated by: Hannah Mercado RN D&C - [facility] HPI 17 wk ob * Details: PATTY [...] yet. US set up for 10/10 with [facility]. has rash on upper thighs-benadryl [...] fallen in the past year?: No 09/19/24 9478 <Electronically signed by Ning lim CNM> Date _ Ning Oquendo CNM Cosigner Signature: Date (if applicable) CC: ~ [facility] Work Phone: 1(763) 359-102005-07-2025 Evaluation note* Diagnosis Onset Date Resolution Status Admit Date Anxiety and depression acute Ma 2024 2:41pm [...] 2024 1:32pm Anxiety and depression acute Au su 2024 3:31pm History of delivery , currently acute December 06, 2024 3:31pm History of miscarriage, currently acute December 06, 2024 3:31pm Obesity affecting acute December 06, 2024 3:31pm acute December 06 3:31pm PUPP (pruritic urticarial papules and plaques of ) acute December 06 3:31pm Supervision of high-risk acute December 06 3:31pm [facility] [employer] [facility] Work Phone: 1(482) 441-744405-07-2025 Evaluation note* Diagnosis Onset Date Resolution Status [...] 2024 2 :08pm Anxiety and depression acute [facility] 2024 3:32pm History of delivery , currently acute October 17 3:32pm History of miscarriage, currently acute October 17 3:32pm Obesity affecting acute October 17, 2024 3:32pm acute October 17 3:32pm Supervision of high-risk acute October 17, 2024 3:32pm Anxiety and depression acute [facility] 2024 1:32pm History of delivery , currently acute November 15 1:32pm History of miscarriage, currently acute November 15 1:32pm Obesity affecting acute November 15, 2024 1:32pm acute November 15 1:32pm PUPP (pruritic urticarial papules and plaques of ) acute November 15, 2024 1:32pm Supervision of high-risk acute November 15, 2024 1:32pm Anxiety and depression acute [facility] 2024 3:31pm History of delivery , currently acute December 06, 2024 3:31pm History of miscarriage, currently acute December 06, 2024 3:31pm Obesity affecting acute December 06, 2024 3:31pm acute December 06, 3:31pm PUPP (pruritic urticarial papules and plaques of ) acute December 06 3:31pm Supervision of high-risk acute December 06 3:31pm Abnormal glucose affecting acute December 21 025 10:15am Anxiety and depression acute Se pt2024 10:15am History of delivery , currently acute December 10:15am History of miscarriage, currently acute December 10:15am Obesity affecting acute December 21, 2024 10:15am acute December 21, 2024 10:15am PUPP (pruritic urticarial papules and plaques of ) acute December 21 10:15am Supervision of high-risk acute December 21 10:15am [facility] Work Phone: 1(196) 325-772004-03-2025 Evaluation note* Diagnosis Onset Date Resolution Status Admit Date Spotting in early resolved July 21, 2024 9:49am Anxiety and depression acute Ap ril 2024 2:23pm History of delivery , currently acute July 29 2:23pm History of miscarriage, currently acute July 29 2:23pm Obesity affecting acute July 29, 2024 [...] of high-risk acute October 17, 2024 3:32pm [facility] Work Phone: 1(662) 731-890604-03-2025 Evaluation note* Diagnosis Onset Date Resolution Status Admit Date Spotting in early resolved July 21, 2024 9:49am Anxiety and depression acute Ap ril 2024 2:23pm History of delivery , currently acute July 29, 2 025 2:23pm History of miscarriage, currently acute July 29 025 2:23pm Obesity affecting acute July 29, [...] of high-risk acute November 15, 2024 1:32pm [facility] Work Phone: 1(438) 972-386902-19-2025 Evaluation note* Diagnosis Onset Date Resolution Status [...] of high-risk acute July 29, 2024 2:23pm [facility] Work Phone: 1(422) 987-818902-19-2025 Evaluation note* Diagnosis Onset Date Resolution Status Admit Date Encounter for routine gynecological examination noneactive Februa 2024 8:50am Spotting in early resolved July [...] high-risk acute September 19, 2024 2 :08pm [facility] Work Phone: 1(455) [phone] NotePap Smear Specimen AdequacyDecember 2022 1:51pmComment.Satisfactory for evaluation. Endocervical and/or squamous metaplasticcells (endocervical component)are present.[facility] A#[id number] Medical Trihealth Rehabilitation HospitalComment on above:Satisfactory for evaluation. Endocervical and/or squamous metaplasticcells (endocervical component)are present.03-25-2023 NotePap Smear Specimen AdequacyDecember 2022 1:51pmComment.Satisfactory for evaluation. Endocervical and/or squamous metaplasticcells (endocervical component)are present.[facility] A#[id number] Medical Trihealth Rehabilitation HospitalComment on above:Satisfactory for evaluation. Endocervical and/or squamous metaplasticcells (endocervical component)are present.Evaluation note* Diagnosis Onset Date Resolution Status Infertility acute Irregular menses acute Screen for STD (sexually transmitted disease) acute Morbid obesity chronic Encounter for routine gynecological examination noneactive [facility] Work Phone: Evaluation note* Diagnosis Onset Date Resolution Status Infertility acute Irregular menses acute Morbid obesity chronic Encounter for routine gynecological examination noneactive Possible exposure to STD non eactive Oral contraception initial prescription noneactive Monilial vaginitis noneactiv e [facility] Work Phone: Progress note Author Amee Schaffer [facility] Note Date/Time January 25, 2025 10 :41am [facility] [address] [place] [address], [address] [place] [address] OFFICE VISIT Date of Service: 01/25/25 MR#: [id number] Acct: [id number] Name: PATTY ALVAREZ Rep #: [id number] : 1995 Provider: Dr. Jarrett Schaffer MD Age/Sex: 29/F Location: [facility] Status: Signed Intake Vital Signs 01/06/25 13:53 01/20/25 14:26 01/25/25 10:07 01/25/25 10:08 Height 5 ft 3 in 5 ft 3 in 5 ft 3 in 5 ft 3 in Weight: 286 lb 4 oz 285 lb 7 oz BMI 50.7 50.5 BP 108/69 107/71 Intake Visit Reasons: 35wk NST ONLY Jogger Operator Required: No Is patient in pain?: No Allergies Penicillins (PCN) Allergy (Verified 01/25/25 10:07) Rash Medications ?Medication ?Instructions ?Recorded ?Confirmed ?Type docosahexaenoic acid 200 mg mg PO 07/08/24 01/25/25 Hi story capsule ( DHA) ondansetron 4 mg disintegrating 4 mg PO Q6H PRN nausea and 09/07/24 01/25/25 Rx tablet vomiting #30 tabs vits,calcium no.78-iron 1 tab PO Q24H pregnan cy 01/01/25 01/25/25 History fumarate-folic acid 29 mg-1 mg tablet (Prenatabs FA) Last Menstrual Period: 05/22/24 Zika: Zika virus [...] 2 current occupational status: employed 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 05/10/18 Stefania 38 live - full term 6lbs 5oz Female [facility] 10/15/20 10 spontaneous Delivery Date: 05/10/18 Last Updated by: Laine Harden Twins; Breech/Breech Delivery Date: 05/10/18 Last Updated by: Laine Harden Twins; Breech/Breech Delivery Date: 10/15/20 Last Updated by: Hannah Mercado RN D&C - [facility] HPI 35wk NST ONLY Details: PATTY ALVAREZ is a 29 year old who presents for routine OB visit. OB Visit LITA Calculator Estimated Delivery Date Method Current WG Current Estimate 02/26/25 LMP (Certain) 35w 3d Expected Delivery Route/Plan tolac if able, if not cs sceheduled Labor Preferences- CB/BF classes: no labor support [...] Relevant counseling for the gestational age provided. Continue routine care and follow up unless otherwise noted in visit notes/problem list details Initial Weight: 269 lb Date -?-?-?-?-?-?-?-?-?-?-?-?- EGA Weight BP Urine Prot -?-?-?-?-?-?-?-?-?-?-?-?- Glucose FHR FuHt Pres Dilation -?-?-?-?-?-?-?-?-?-?-?-?- Effaced St Visit Note 07/29/24 -?-?-?-?-?-?-?-?-?-?-?-?- 9w 5d 269 lb 4 oz (+4 oz) 125/81 -?-?-?-?-?-?-?-?-?-?-?-?- 164 -?-?-?-?-?-?-?-?-?-?-?-?- LC- CRL con with lmp. declines nipt. [...] yet. US set up for 10/10 with [facility]. has rash on upper thighs-benadryl cream and Claritin. 10/17/24 -?-?-?-?-?-?-?-?-?-?-?-?- 21w 1d 278 lb 4 oz (+9 lb 4 oz) 120/74 Negative -?-?-?--?-?-?-?-?-?-?-?-?- Negative 147 -?-?-?-?-?-?-?-?-?-?-?-?- MH-No VB. Hilario Salas Reviewed anatomy US. 11/15/24 -?-?-?-?-?-?-?-?-?-?-?-?- 25w 2d 273 lb 8 oz (+4 lb 8 oz) 118/78 Negative -?-?-?-?-?-?-?-?-?-?-?-?- Negative 153 -?-?-?-?-?-?-?-?-?-?-?-?- MH-No VB. Hilario salas [facility]. Has raised itchy rash entire torso to upper thighs. Has had about 4 weeks. Went to urgent care then PCP. Normal CMP and ANABEL. Claritan and hydroxyzine not helpful. SM reviewed. Medrol pk and will see derm. 12/06/24 -?-?-?-?-?-?-?-?-?-?-?-?- 28w 2d 281 lb 2 oz (+12 lb 2 oz) 126/72 -?-?-?-?-?-?-?-?-?-?-?-?- 145 29 -?-?-?-?-?-?-?-?-?-?-?-?- MH-No VB, LOF. G ood FM. Derm confirmed PUPPS. Has improved. 28 wk labs pending. Tdap 12/21/24 -?-?-?-?-?-?-?-?-?-?-?-?- 30w 3d 283 lb 9 oz (+14 lb 9 oz) 120/70 Negative -?-?-?-?-?-?-?-?-?-?-?-?- Negative 135 34 -?-?-?-?-?-?-?-?-?-?-?-?- JV- long discuss ion today about . patient's wishes are to go as long as possible (41 weeks) she understands we do not induce, rather augment as needed with a prior scar. She is obese with chance of success being only 38%. 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 Consent given for her to read more and bring back next visit. 01/06/25 -?-?-?-?-?-?-?-?-?-?-?-?- 32w 5d 285 lb 6 oz (+16 lb 6 oz) 112/72 Negative -?-?-?-?-?-?-?-?-?-?-?-?- Negative 135 37 -?-?-?-?-?-?-?-?-?-?-?-?- KW- no vb/ctx/lo f. good fm. rash is much better. discussed getting 41 week c/s set up. will need NSTs at 34 weeks and 36 week US 01/20/25 -?-?-?-?-?-?-?-?-?-?-?-?- 34w 5d 286 lb 4 oz (+17 lb 4 oz) 108/69 Negative -?-?-?-?-?-?-?-?-?-?-?-?- Negative 130 -?-?-?-?-?-?-?-?-?-?-?-?- SM- discussed TO LAC vs RLTCS no vb lof good fm no reulgar ctx 01/25/25 -?-?-?-?-?-?-?-?-?-?-?-?- 35w 3d 285 lb 7 oz (+16 lb 7 oz) 107/71 Negative -?-?-?-?-?--?-?-?-?-?-?-?- Negative 135 -?-?-?-?-?-?-?-?-?-?-?-?- SM- no vb lof go od fm n roeuglar ctx ACOG First Trimester First Trimester: Desire for [...] Management Plans, Labor support person(s), Immediate Larc, Circumcision preference, Movement Monitoring, Signs and Symptoms of Preeclampsia, Feeding No and Family Medical Leave or Disability Forms; Discussed Trial of Labor after Counseling Office Procedures Non-stress Test Non-Stress Test Indications for Monitoring: Yes Morbid obesity Heart Rate Baseline: 135 Heart Rate Variability: moderate Movement: Present Heart Rate Accelerations: Present Decelerations: Absent Contractions: Absent Impression: Yes Reactive Non-Stress Test Category 1 Results POC Urinalysis 2 Dip (Clinic) Office Urine Glucose Negative Last Edit by Cely Pena on 01/25/25 10: 22 Office Urine Protein Negative Last Edit by Cely Pena on 01/25/25 10: 22 Coding Level of Care Code OB Routine Diagnoses Abnormal glucose affecting O99.810 PUPP (pruritic urticarial papules and plaques of ) O26.86 History of miscarriage, currently O09.299 History of delivery, currently O34.219 Obesity affecting in second trimester, unspecified obesity type O99.212 Obesity type affecting : unspecified obesity Trimester: second trimester Supervision of high risk in third trimester O09.93 Trimester: third trimester 35 weeks gestation of Z3A.35 Weeks of gestation: 35 weeks Anxiety and depression F41.9; F32.9 CPT Codes Non-Stress Test (33219) Assessment and Plan Assessment and Plan (1) Abnormal glucose affecting : Status: Acute Comment: normal 3 hr GTT (2) PUPP (pruritic urticarial papules and plaques of ): Status: Acute Comment: medrol pk, claritan. Confirmed by derm (3) History of miscarriage, currently : Status: Acute Comment: 2020- D&C @ 10wks; Trisomy 21 (4) History of delivery, currently : Status: Acute Comment: Desires . C/S 03/03 w/ SM. (5) Obesity affecting : Status: Acute Qualifiers: Obesity type affecting : unspecified obesity Trimester: second trimester Qualified Code(s): O99.212 - Obesity complicating , second trimester Comment: BMI 46.1; HgBA1C ordered w/NOB (6) Supervision of high-risk : Status: Acute Qualifiers: Trimester: third trimester Qualified Code(s): O09.93 - Supervision of high risk , unspecified, third trimester Comment: PRR,, LITA 02/26/25,boy PC: Andreina & Stefania *TWINS*, BF Will (7) : Status: Acute Qualifiers: Weeks of gestation: 35 weeks Qualified Code(s): Z3A.35 - 35 weeks gestation of Comment: Discussed genetic/carrier testing - undecided (8) Anxiety and depression: Status: Acute Comment: IN THE PAST Orders: Orders POC Urinalysis 2 Dip (Clinic) Today OB NST Today O99.212 - Obesity complicating , second trimester 01/25/25 1041 <Electronically signed by Amee trimble MD> Date _ Amee Schaffer MD Cosigner Signature: Date (if applicable) CC: ~ [facility] Work Phone: Reason for referral (narrative)No reason for referral information availableWBar[facility] Work Phone: Summary Purpose Family History No [...] No December 11 1 12:30pm Power of Industrial Tech Instructor No December 11 021 12:30pm Advance Directive Response Recorded Date/ Time Living Will No December 11 1:30pm Do you have a Healthcare Power of Industrial Tech Instructor? No December 11, 2020 1:30pm Advance Directives No July 01, 025 1:27pm Advance Directive Response Recorded Date/ Time Living Will No December 11 1:30pm Do you have a Healthcare Power of Industrial Tech Instructor? 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) possible yeast infection Reason for Visit Infertility Irregular menses Morbid obesity Encounter for routine gynecological examination Possible exposure to STD Oral contraception initial prescription Monilial vaginitis Chief Complaint Admit Date 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) June 08, 2024 8:50am Amb Documentation July 08, 2024 9:0 4am spotting in early July 21 025 9:49am New OB, LMP 2/2, LITA 02/26July 29 2:23pm Reason for Visit [...] 2024 2:23pm Chief Complaint Admit Date 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) June 08, 2024 8:50am Amb Documentation July 08, 2024 9:0 4am spotting in early July 21 025 9:49am New OB, LMP 2/2, LITA 02/26July 29 2:23pm rpt clean catch/culture per KW July 2:22pm Chief Complaint Admit Date 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) June 08, 2024 8:50am Amb Documentation July [...] Admit Date Spotting in early July 21, 025 9:49am [...] Complaint Admit Date spotting in early July 21, 025 9:49am New OB, LMP /, LITA [...] 15, 2024 1:32pm Obesity affecting November 15, 025 1:32pm November 15, 2024 1:32 pm [...] t 2024 3:31pm Abnormal glucose affecting Sep tember 2024 10:15am Anxiety and depression December 21 10:15am History of delivery, currently December 21, 2024 10:15am History of miscarriage, currently pregna nt December 21, 2024 10:15am Obesity affecting December 10:15am December 21, 2024 10:15am PUPP (pruritic urticarial pa pules and plaques of ) December 21, 2024 10:15am Supervision of high-risk Silverio argueta 2024 10:15am Chief Complaint Admit Date 17 wk ob * September 19, 2024 2:08p m 21 wk ob * October 17, 2024 3:32 pm 25wk ob * November 15, 2024 1:32 pm 28wk ob/glucose December 06, 2024 3: 31pm Encounter for screening for diabetes deshaun litus December 13, 2024 6:49am 30 wk ob * December 21, 2024 10:15am DECREASED MOVEMENT January 01, 2025 8:55am Reason for Visit Admit Date Anxiety and depression September 19, 2024 2: [...] t 2024 3:31pm Abnormal glucose affecting Sep tember 2024 10:15am Anxiety and depression December 21 10:15am History of delivery, currently December 21, 2024 10:15am History of miscarriage, currently pregna nt December 21, 2024 10:15am Obesity affecting December 10:15am December 21, 2024 10:15am PUPP (pruritic urticarial pa pules and plaques of ) December 21, 2024 10:15am Supervision of high-risk Septe mb2024 10:15am Chief Complaint Admit Date 17 wk ob * September 19, 2024 2:08p m 21 wk ob * October 17, 2024 3:32 pm 25wk ob * November 15, 2024 1:32 pm 28wk ob/glucose December 06, 2024 3: 31pm Encounter for screening for diabetes deshaun litus December 13, 2024 6:49am 30 wk ob * December 21, 2024 10:15am DECREASED MOVEMENT January 01, 2025 8:55am DECREASED MOVEMENT January 01, 2025 12:34pm 32wk ob * January 06, 2025 1:49pm Reason for Visit Admit Date Anxiety and depression September 19, 2024 2: [...] Augus t 2024 3:31pm Abnormal glucose affecting [facility]2024 10:15am Anxiety and depression December 21 10:15am History of delivery, currently December 21, 2024 10:15am History of miscarriage, currently pregna nt December 21, 2024 10:15am Obesity affecting December 10:15am December 21, 2024 10:15am PUPP (pruritic urticarial pa pules and plaques of ) December 21, 2024 10:15am Supervision of high-risk [facility] 2024 10:15am Abnormal glucose affecting [facility] 2024 1:49pm Anxiety and depression January 06, 2 025 1:49pm History of delivery, currently January 06, 2025 1:49pm History of miscarriage, currently pregna nt January 06, 2025 1:49pm Obesity affecting January 062024 1:49pm January 06, 2025 1:49pm PUPP (pruritic urticarial pa pules and plaques of ) January 06, 2025 1:49pm Supervision of high-risk [facility] 2024 1:49pm Chief Complaint Admit Date 21 wk ob * October 17, 2024 3:32 pm 25wk ob * November 15, 2024 1:32 pm 28wk ob/glucose December 06, 2024 3: 31pm Encounter for screening for diabetes deshaun litus December 13, 2024 6:49am 30 wk ob * December 21, 2024 10:15am DECREASED MOVEMENT January 01, 2025 8:55am DECREASED MOVEMENT January 01, 2025 12:34pm 32wk ob * January 06, 2025 1:49pm 34wk5d ob/nst * January 20, 2025 2: 22pm Reason for Visit Admit Date Anxiety and depression October 17, 2024 3 [...] t 2024 3:31pm Abnormal glucose affecting Sep tem2024 10:15am Anxiety and depression December 21 10:15am History of delivery, currently December 21, 2024 10:15am History of miscarriage, currently pregna nt December 21, 2024 10:15am Obesity affecting December 10:15am December 21, 2024 10:15am PUPP (pruritic urticarial pa pules and plaques of ) December 21, 2024 10:15am [facility] 2024 10:15am Abnormal glucose affecting Sep tember 2024 1:49pm Anxiety and depression January 06, 2 025 1:49pm History of delivery, currently January 06, 2025 1:49pm History of miscarriage, currently pregna nt January 06, 2025 1:49pm Obesity affecting January 062024 1:49pm January 06, 2025 1:49pm PUPP (pruritic urticarial pa pules and plaques of ) January 06, 2025 1:49pm Supervision of high-risk Silverio [facility] 2024 1:49pm Abnormal glucose affecting Oct nessa 2024 2:22pm Anxiety and depression January 20, 2025 2:22pm History of delivery, currently January 20, 2025 2:22pm History of miscarriage, currently pregna nt January 20, 2025 2:22pm Obesity affecting January 20, 2025 2:22pm January 20, 2025 2: 22pm PUPP (pruritic urticarial pa pules and plaques of ) January 20, 2025 2:22pm Supervision of high-risk Octob er 2024 2:22pm Chief Complaint Admit Date 21 wk ob * October 17, 2024 3:32 pm 25wk ob * November 15, 2024 1:32 pm 28wk ob/glucose December 06, 2024 3: 31pm Encounter for screening for diabetes deshaun litus December 13, 2024 6:49am 30 wk ob * December 21, 2024 10:15am DECREASED MOVEMENT January 01, 2025 8:55am DECREASED MOVEMENT January 01, 2025 12:34pm 32wk ob * January 06, 2025 1:49pm 34wk5d ob/nst * January 20, 2025 2: 22pm 35wk NST ONLY January 25, 2025 9: 59am Reason for Visit Admit Date Anxiety and depression October 17, 2024 3 [...] Augus t 2024 3:31pm Abnormal glucose affecting [facility] 2024 10:15am Anxiety and depression December 21 10:15am History of delivery, currently December 21, 2024 10:15am History of miscarriage, currently pregna nt December 21, 2024 10:15am Obesity affecting December 10:15am December 21, 2024 10:15am PUPP (pruritic urticarial pa pules and plaques of ) December 21, 2024 10:15am Supervision of high-risk Septe [facility] 2024 10:15am Abnormal glucose affecting [facility] 2024 1:49pm Anxiety and depression January 06 025 1:49pm History of delivery, currently January 06, 2025 1:49pm History of miscarriage, currently pregna nt January 06, 2025 1:49pm Obesity affecting January 062024 1:49pm January 06, 2025 1:49pm PUPP (pruritic urticarial pa pules and plaques of ) January 06, 2025 1:49pm Supervision of high-risk Silverio mber 2024 1:49pm Abnormal glucose affecting Oct nessa 2024 2:22pm Anxiety and depression January 20, 2025 2:22pm History of delivery, currently January 20, 2025 2:22pm History of miscarriage, currently pregna nt January 20, 2025 2:22pm Obesity affecting January 20, 2025 2:22pm January 20, 2025 2: 22pm PUPP (pruritic urticarial pa pules and plaques of ) January 20, 2025 2:22pm Supervision of high-risk Octob er 2024 2:22pm Abnormal glucose affecting Oct nessa 2024 9:59am Anxiety and depression January 25, 2025 9:59am History of delivery, currently January 25, 2025 9:59am History of miscarriage, currently pregna nt January 25, 2025 9:59am Obesity affecting January 25, 2025 9:59am January 25, 2025 9: 59am PUPP (pruritic urticarial pa pules and plaques of ) January 25, 2025 9:59am Supervision of high-risk Octob er 2024 9:59am Additional Source Comments INFORMATION SOURCE (unrecogn ized section and content) DATE CREATED AUTHOR 06/03/2018 [facility] DATE CREATED AUTHOR AUTHOR'S ORGANIZ ATION 10/20/2018 [facility] ([place]) DATE CREATED AUTHOR AUTHOR'S ORGANIZ ATION 03/26/2021 [facility] DATE CREATED AUTHOR AUTHOR'S ORGANIZ ATION 10/28/2024 [facility] DATE CREATED AUTHOR AUTHOR'S ORGANIZ ATION [facility]20[facility] Care Teams (unrecognized sec tion and content) Team Status: Active Member Role Status Dates Louise GILES PA-C Family Provider Active Louise GILES PA-C Primary Care Provider Active Team Status: Inactive Member Role Status Dates Louise GILES PA-C Primary Care Provider, Referri ng Provider Active Jenny So CNM Attending Provider Active Team Status: Inactive Member Role Status Dates Louise [place] PA, PA-C Primary Care Provider Active Jenny So CNM Attending Provider, Referring Pr ovider Active Team Status: Inactive Member Role Status Dates Louise Moon PA, PA-C Primary Care Provider, Referri ng Provider Active Bessie Mansfield SET UP INSPECTOR, SET UP INSPECTOR-C Attending Provider Active Team Status: Inactive Member Role Status Dates Louise Moon PA, PA-C Primary Care Provider Active Bessie Mansfield SET UP INSPECTOR, SET UP INSPECTOR-C Attending Provider, Referring Provider Active Team Status: [...] August 24, 2024 End: August 24, 2024 Louies [place] PA, PA-C Referring Provider Active Start: August 24, 2024 End: August 24, 2024 Dr. Amee Schaffer MD Attending Provider Active Start: August 24, 2024 End: August 24, 2024 Team Status: Inactive Member Role Status Dates Louise Moon PA, PA-C Primary Care Provider Active Start: September 19, 2024 End: September 19, 2024 Louise [place] PA, PA-C Referring Provider Active Start: September 19, 2024 End: September 19, 2024 Ning Oquendo CNM Attending Provider Active S tart: September 19, 2024 End: September 19, 2024 Team Status: Active Member Role/Relationship Status Dates Louise Moon PA, PA-C Family Provider Active Louise [place] PA, PA-C Primary Care Provider Active Team [...] 2024 End: October 17, 2024 Bessie Mansfield SET UP INSPECTOR, SET UP INSPECTOR-C Attending Provider Active Start: October 17, 2024 [...] Team Status: Inactive Member Role/Relationship Status Dates Luoise Moon PA, [...] 2024 End: October 17, 2024 Bessie Mansfield SET UP INSPECTOR, SET UP INSPECTOR-C Attending Provider Active Start: October 17, 2024 End: October 17, 2024 Team Status: Inactive Member Role/Relationship Status Dates Louise Moon PA, PA-C Primary Care Provider Active Start: November 15, 2024 End: November 15, 2024 Louisesaniya Moon PA, PA-C Referring Provider Active Start: November 15, 2024 End: November 15, 2024 Bessie Mansfield SET UP INSPECTOR, SET UP INSPECTOR-C Attending Provider Active Start: November 15, 2024 [...] 2024 End: October 17, 2024 Bessie Mansfield SET UP INSPECTOR, SET UP INSPECTOR-C Attending Provider Active Start: October 17, 2024 End: October 17, 2024 Team Status: Inactive Member Role/Relationship Status Dates Louise Moon PA, PA-C Primary Care Provider Active Start: November 15, 2024 End: November 15, 2024 Louisesaniya Moon PA, PA-C Referring Provider Active Start: November 15, 2024 End: November 15, 2024 Bessie Mansfield SET UP INSPECTOR, SET UP INSPECTOR-C Attending Provider Active Start: November 15, 2024 End: November 15, 2024 Team Status: Active Member Role/Relationship Status Dates Louise Moon PA, PA-C Primary Care Provider Active Start: December 06, 2024 Bessie Mansfield SET UP INSPECTOR, SET UP INSPECTOR-C Attending Provider Active Start: December 06, 2024 Bessie Mansfield SET UP INSPECTOR, SET UP INSPECTOR-C Referring Provider Active Start: December 06, 2024 Team Status: Inactive Member Role/Relationship Status Dates Louise Moon PA, PA-C Primary Care Provider Active Start: December 06, 2024 End: December 06, 2024 Louisesaniya Mono PA, PA-C Referring Provider Active Start: December 06, 2024 End: December 06, 2024 Bessie Mansfield SET UP INSPECTOR, SET UP INSPECTOR-C Attending Provider Active Start: December 06, 2024 End: December 06, 2024 Team Status: Inactive Member Role/Relationship Status Dates Louise Moon PA, PA-C Primary Care Provider Active Start: December 06, 2024 End: December 06, 2024 Bessie Mansfield SET UP INSPECTOR, SET UP INSPECTOR-C Attending Provider Active Start: December 06, 2024 End: December 06, 2024 Bessie Mansfield SET UP INSPECTOR, SET UP INSPECTOR-C Referring Provider Active Start: December 06, 2024 End: December 06, 2024 Team Status: Inactive Member Role/Relationship Status Dates Louise Moon PA, PA-C Primary Care Provider Active Start: December 13, 2024 End: December 13, 2024 Bessie Mansfield SET UP INSPECTOR, SET UP INSPECTOR-C Attending Provider Active Start: December 13, 2024 End: December 13, 2024 Bessie Mansfield SET UP INSPECTOR, SET UP INSPECTOR-C Referring Provider Active Start: December 13, 2024 End: December 13, 2024 Team Status: Inactive Member Role/Relationship Status Dates Louise Moon PA, PA-C Primary Care Provider Active Start: December 21, 2024 End: December 21, 2024 Louise [place] PA, PA-C Referring Provider Active Start: December 21, 2024 End: December 21, 2024 Dr. Mallory Dover DO Attending Provider Activ e Start: December 21, 2024 End: December 21, 2024 Team Status: Inactive Member Role/Relationship [...] 2024 End: October 17, 2024 Bessie Mansfield SET UP INSPECTOR, SET UP INSPECTOR-C Attending Provider Active Start: October 17, 2024 End: October 17, 2024 Team Status: Inactive Member Role/Relationship Status Dates Louise Hills PA, PA-C Primary Care Provider Active Start: November 15, 2024 End: November 15, 2024 Louise Moon PA, PA-C Referring Provider Active Start: November 15, 2024 End: November 15, 2024 Bessie Mansfield SET UP INSPECTOR, SET UP INSPECTOR-C Attending Provider Active Start: November 15, 2024 End: November 15, 2024 Team Status: Inactive Member Role/Relationship Status Dates Louise Moon PA, PA-C Primary Care Provider Active Start: December 06, 2024 End: December 06, 2024 Bessie Mansfield SET UP INSPECTOR, SET UP INSPECTOR-C Attending Provider Active Start: December 06, 2024 End: December 06, 2024 Bessie Mansfield SET UP INSPECTOR, SET UP INSPECTOR-C Referring Provider Active Start: December 06, 2024 End: December 06, 2024 Team Status: Inactive Member Role/Relationship Status Dates Louise Sarai PA, PA-C Primary Care Provider Active Start: December 06, 2024 End: December 06, 2024 Louise Moon PA, PA-C Referring Provider Active Start: December 06, 2024 End: December 06, 2024 Bessie Mansfield SET UP INSPECTOR, SET UP INSPECTOR-C Attending Provider Active Start: December 06, 2024 End: December 06, 2024 Team Status: Inactive Member Role/Relationship Status Dates Louise Moon PA, PA-C Primary Care Provider Active Start: December 13, 2024 End: December 13, 2024 Bessie Mansfield SET UP INSPECTOR, SET UP INSPECTOR-C Attending Provider Active Start: December 13, 2024 End: December 13, 2024 Bessie Mansfield SET UP INSPECTOR, SET UP INSPECTOR-C Referring Provider Active Start: December 13, 2024 End: December 13, 2024 Team Status: Inactive Member Role/Relationship Status Dates Louisesaniya Moon PA, PA-C Primary Care Provider Active Start: December 21, 2024 End: December 21, 2024 Louise Moon PA, PA-C Referring Provider Active Start: December 21, 2024 End: December 21, 2024 Dr. Mallory Dover , DO Attending Provider Activ e Start: December 21, 2024 End: December 21, 2024 Team Status: Inactive Member Role/Relationship Status Dates Louise Moon PA, PA-C Primary Care Provider Active Start: January 01, 2025 End: January 01, 2025 Dr. Amee Schaffer MD Attending Provider Active Start: January 01, 2025 End: January 01, 2025 Team Status: Active Member Role/Relationship Status Dates Louise Moon PA, PA-C Primary care physician Active Team Status: Inactive Member Role/Relationship Status Dates Louise Moon PA, PA-C Primary care physician Active Start: September 19, 2024 End: September 19, 2024 Louisesaniya Moon PA, PA-C Referring Provider Active Start: September 19, 2024 End: September 19, 2024 Ning Oquendo CNM Attending physician Active Start: September 19, 2024 End: September 19, 2024 Team Status: Inactive Member Role/Relationship Status Dates Louise Moon PA, PA-C Primary care physician Active Start: October 17, 2024 End: October 17, 2024 Louisesaniya Moon PA, PA-C Referring Provider Active Start: October 17, 2024 End: October 17, 2024 Bessie Mansfield SET UP INSPECTOR, SET UP INSPECTOR-C Attending physician Active Start: October 17, 2024 End: October 17, 2024 Team Status: Inactive Member Role/Relationship Status Dates Louise Moon PA, PA-C Primary care physician Active Start: November 15, 2024 End: November 15, 2024 Louisesaniya Moon PA, PA-C Referring Provider Active Start: November 15, 2024 End: November 15, 2024 Bessie Mansfield SET UP INSPECTOR, SET UP INSPECTOR-C Attending physician Active Start: November 15, 2024 End: November 15, 2024 Team Status: Inactive Member Role/Relationship Status Dates Louise Moon PA, PA-C Primary care physician Active Start: December 06, 2024 End: December 06, 2024 Bessie Mansfield SET UP INSPECTOR, SET UP INSPECTOR-C Attending physician Active Start: December 06, 2024 End: December 06, 2024 Bessie Mansfield SET UP INSPECTOR, SET UP INSPECTOR-C Referring Provider Active Start: December 06, 2024 End: December 06, 2024 Team Status: Inactive Member Role/Relationship Status Dates Louise Moon PA, PA-C Primary care physician Active Start: December 06, 2024 End: December 06, 2024 Louisesaniya Moon PA, PA-C Referring Provider Active Start: December 06, 2024 End: December 06, 2024 Bessie Mansfield SET UP INSPECTOR, SET UP INSPECTOR-C Attending physician Active Start: December 06, 2024 End: December 06, 2024 Team Status: Inactive Member Role/Relationship Status Dates Louisesaniya Moon PA, PA-C Primary care physician Active Start: December 13, 2024 End: December 13, 2024 Bessie Mansfield SET UP INSPECTOR, SET UP INSPECTOR-C Attending physician Active Start: December 13, 2024 End: December 13, 2024 Bessie Mansfield SET UP INSPECTOR, SET UP INSPECTOR-C Referring Provider Active Start: December 13, 2024 End: December 13, 2024 Team Status: Inactive Member Role/Relationship Status Dates Louisesaniya Moon PA, PA-C Primary care physician Active Start: December 21, 2024 End: December 21, 2024 Louisesaniya Moon PA, PA-C Referring Provider Active Start: December 21, 2024 End: December 21, 2024 Dr. Mallory Dover DO Attending physician Active Start: December End: December 21, 2024 Team Status: Inactive Member Role/Relationship Status Dates Louise Moon PA, PA-C Primary care physician Active Start: January 01, 2025 End: January 01, 2025 Dr. Amee Schaffer MD Attending physician Active Start: January 01, 2025 End: January 01, 2025 Team Status: Active Member Role/Relationship Status Dates Louisesaniya Moon PA, PA-C Primary care physician Active Start: January 01, 2025 Dr. Amee Schaffer MD Attending physician Active Start: January 01, 2025 Dr. Amee Schaffer MD Nurse Practitioner Active Start: January 01, 2025 Team Status: Inactive Member Role/Relationship Status Dates Louise Moon PA, PA-C Primary care physician Active Start: January 06, 2025 End: January 06, 2025 Louise [place] PA, PA-C Referring Provider Active Start: January 06, 2025 End: January 06, 2025 Ning Oquendo CNM Attending physician Active Start: January 06, 2025 End: January 06, 2025 Team Status: Inactive Member Role/Relationship Status Dates Louisesaniya Moon PA, PA-C Primary care physician Active Start: October 17, 2024 End: October 17, 2024 Louise Moon PA, PA-C Referring Provider Active Start: October 17, 2024 End: October 17, 2024 Bessie Mansfield SET UP INSPECTOR, SET UP INSPECTOR-C Attending physician Active Start: October 17, 2024 End: October 17, 2024 Team Status: Inactive Member Role/Relationship Status Dates Louise Moon PA, PA-C Primary care physician Active Start: November 15, 2024 End: November 15, 2024 Louise Moon PA, PA-C Referring Provider Active Start: November 15, 2024 End: November 15, 2024 Bessie Mansfield SET UP INSPECTOR, SET UP INSPECTOR-C Attending physician Active Start: November 15, 2024 End: November 15, 2024 Team Status: Inactive Member Role/Relationship Status Dates Louise Moon PA, PA-C Primary care physician Active Start: December 06, 2024 End: December 06, 2024 Bessie Mansfield SET UP INSPECTOR, SET UP INSPECTOR-C Attending physician Active Start: December 06, 2024 End: December 06, 2024 Bessie Mansfield SET UP INSPECTOR, SET UP INSPECTOR-C Referring Provider Active Start: December 06, 2024 End: December 06, 2024 Team Status: Inactive Member Role/Relationship Status Dates Louise Moon PA, PA-C Primary care physician Active Start: December 06, 2024 End: December 06, 2024 Louise Moon PA, PA-C Referring Provider Active Start: December 06, 2024 End: December 06, 2024 Bessie Mansfield SET UP INSPECTOR, SET UP INSPECTOR-C Attending physician Active Start: December 06, 2024 End: December 06, 2024 Team Status: Inactive Member Role/Relationship Status Dates Louise Moon PA, PA-C Primary care physician Active Start: December 13, 2024 End: December 13, 2024 Bessie Mansfield SET UP INSPECTOR, SET UP INSPECTOR-C Attending physician Active Start: December 13, 2024 End: December 13, 2024 Bessie Mansfield SET UP INSPECTOR, SET UP INSPECTOR-C Referring Provider Active Start: December 13, 2024 End: December 13, 2024 Team Status: Inactive Member Role/Relationship Status Dates Louise Moon PA, PA-C Primary care physician Active Start: December 21, 2024 End: December 21, 2024 Louise Moon PA, PA-C Referring Provider Active Start: December 21, 2024 End: December 21, 2024 Dr. Mallory Dover DO Attending physician Active Start: December End: December 21, 2024 Team Status: Inactive Member Role/Relationship Status Dates Louise Moon PA, PA-C Primary care physician Active Start: January 01, 2025 End: January 01, 2025 Dr. Amee Schaffer MD Attending physician Active Start: January 01, 2025 End: January 01, 2025 Team Status: Active Member Role/Relationship Status Dates Louise Moon PA, PA-C Primary care physician Active Start: January 01, 2025 Dr. Amee Schaffer MD Attending physician Active Start: January 01, 2025 Dr. Amee Schaffer MD Nurse Practitioner Active Start: January 01, 2025 Team Status: Inactive Member Role/Relationship Status Dates Louise Moon PA, PA-C Primary care physician Active Start: January 06, 2025 End: January 06, 2025 Louise Moon PA, PA-C Referring Provider Active Start: January 06, 2025 End: January 06, 2025 Ning Oquendo CNM Attending physician Active Start: January 06, 2025 End: January 06, 2025 Team Status: Inactive Member Role/Relationship Status Dates Louise Moon PA, PA-C Primary care physician Active Start: January 20, 2025 End: January 20, 2025 Louise Moon PA, PA-C Referring Provider Active Start: January 20, 2025 End: January 20, 2025 Dr. Amee Schaffer MD Attending physician Active Start: January 20, 2025 End: January 20, 2025 Team Status: Inactive Member Role/Relationship Status Dates Louise Moon PA, PA-C Primary care physician Active Start: January 25, 2025 End: January 25, 2025 Louise Moon PA, PA-C Referring Provider Active Start: January 25, 2025 End: January 25, 2025 Dr. Amee Schaffer MD Attending physician Active Start: January 25, 2025 End: January 25, 2025 Goals (unrecognized section and content) Type Care Experience LTCS for breech pres entation Care Experience prev LTCS for twins, desires TOLACpatient counseled regarding risks/benefits of trial of labor versus repeat . ACOG/uptodate education given to patient. [] % likelihood of success per calculatorTOLAC consent form signed: [] Care Experience Labor Preferences-CB /BF classes: nolabor support person: Willlabor intervention preferences: []pain management options preferred: epidural okcut cord/dad catch: yesbreastfeeding: yesPP control planned: discusseddiscussed possible routes of delivery and associated risks: []special requests: []patient counseled regarding risks/benefits of trial of labor versus repeat . ACOG/uptodate education given to patient. 38 % likelihood of success per calculatorTOLAC consent form signed: [] Type Detail Care Experience LTCS for breech pres entation Care Experience prev LTCS for twins, desires TOLACpatient counseled regarding risks/benefits of trial of labor versus repeat . ACOG/uptodate education given to patient. [] % likelihood of success per calculatorTOLAC consent form signed: [] Care Experience tolac if able, if no t cs sceheduledLabor Preferences-CB/BF classes: nolabor support person: Willlabor intervention preferences: []pain management options preferred: epidural okcut cord/dad catch: yesbreastfeeding: yesPP control planned: discusseddiscussed possible routes of delivery and associated risks: []special requests: []patient counseled regarding risks/benefits of trial of labor versus repeat . ACOG/uptodate education given to patient. 38 % likelihood of success per calculatorTOLAC consent form signed: [] FOR RECORDS PERTAINING TO PATIENTS WHO ARE [...] BE BASED ON THE PRIMARY CLINICAL RECORDS. [facility] [address] [facility]. provides no warranty or guarantee of the accuracy or completeness of information in this document.
--- OUTSIDE RECORDS SUMMARY | 2025-02-08 06:50 | XMS RPT_ITS | CCD ---
Author Organization [facility] Care Team Providers Care Barber Stylist Name Role Phone SHARAN JEFFREY Attending Unavailable [...] HILLS, LOUISE D Primary Care Unavailable RED ALBEROT Attending Unavailable AMEE SCHAFFER Referring Unavailabl e HILLS, LOUISE D Primary Care Unavailable NATHAN RODRIGUEZ Attending AMEE Mg Referring Unavailabl e HILLS, LOUISE D Primary Care Unavailable MALLORY AGUILAR Attending Unavailable AMEE SCHAFFER Referring Unavailabl e HILLS, LOUISE D Primary Care Unavailable ERIK Hooper Primary Care Provider ERIK Hooper Referring Provider ARAVIND So Attending Provider Colleen Cedillo CNM Unavailable [place] lock stitch channeler, . . Unavailable General Surgery Provider Unavailable Unavail able Bandar PUENTES, Kristin Swan Unavailable Aiden PUENTES, Jame Kaur Unavailable Isrrael PUENTES, Mervin Gonzalez Unavailable Sarai GILES-C, Louise Marcelo Unavailable [phone] Vess CAR UNLOADER, Neteresafarnklyn L Unavailable Unavailable Arnulfo CAR UNLOADER, Leny E Unavailable Unavailable Félix EPPS, Brooke Thomas Unavailable Unavailable Nathan CAR UNLOADER, Zeinab Che Unavailable Unavailab nena Siddiqui CAR UNLOADER, Mallory Unavailable Unavailabl franklyn Be PA-C, Porsha Saldivar Unavailable [phone] Alexsandra CAR UNLOADER, Yolande K Unavailable Unamiya Tobar MILL CONTROL OPERATOR-C, Skinny Richards Unavailable Franko CAR UNLOADER, Veronica Unavailable Unavailable Adithya SCHMIDT, Mary Unavailable Unavailable Unavailable Unavailable Unavailable Unavailable Shyla MILL CONTROL OPERATOR, MILL CONTROL OPERATOR-C Bessie Attending Provider Spenser TAMEZN, Aracelis Unavailable Unavailable Adriana EPPS, Ren Unavailable Unavailable Sarai CHANEYCLouise Primary Care Provider Louise Moon PA-C Referring Provider Ross CORTEZ-CLeeann Attending Provider Hannah Mercado RN Attending Provider UnavailNing Jj CNM Attending Provider Jenny So CNM Attending Provider Jenny So CNM Referring Provider Ning Oquendo CNM Referring Provider Manuel PUENTES, Dr. Lubin Attending Provider Louise Moon PA-C Primary Care Provider [phone] Sarai CHANEYCLouise Referring Provider Shyla CORTEZ-CBessie Attending Provider AMEE SCHAFFER MD Admitting UnavailAMEE Best MD Primary Care Unavailab AMEE Braov MD Attending Unavailab [facility], LOUISE PAC Consulting Unavailable PROVIDER, UNKNOWN Consulting Unavailable JAZMYN HO DO Admitting Unavailable JAZMYN HO DO Primary Care Unavailable JAZMYN HO DO Attending Unavailable ALLEENE, LOUISE PAC Consulting Unavailable PROVIDER, UNKNOWN Consulting Unavailable ALLEENE, LOUISE Admitting Unavailable ALLEENE, LOUISE Primary Care Unavailable ALLEENE, LOUISE Attending Unavailable ALLEENE, LOUISE PAC Consulting Unavailable PROVIDER, UNKNOWN Consulting Unavailable Gray PA-C, Louise Primary Care Provider Gray PA-C, Louise Primary Care Provider Gray PA-C, Louise Referring Provider Ning Oquendo CNM Attending Provider [phone] Shyla MILL CONTROL OPERATOR-C, Bessie Referring Provider [phone] Mallory Dover DO Attending Provider Gray PA-C, Louise Primary Care Provider Gray PA-C, Louise Referring Provider Dr. Amee Schaffer MD Attending Provider Gray PA-C, Louise Primary Care Physician Ning Oquendo CNM Attending Physician [phone] Shyla MILL CONTROL OPERATOR-CBessie Attending Physician [phone] Mallory Dover DO Attending Physician Dr. Amee Schaffer MD Attending Physician Dr. Amee Schaffer MD Nurse Practitioner Gray PA-C, Louise Primary Care Physician Gray PA-C, Louise Referring Provider Ning Oquendo CNM Attending Physician [phone] Amee Schaffer Attending Unavailable Gray PA, Louise Referring Unavailable Gray PA, Louise Primary Care Unavailable Ning Oquendo Attending Unavailable Gray PA, Louise Primary Care Unavailable Gray PA, Louise Referring Unavailable Mallory Dover Attending Unavailabl e Gray PA, Louise Referring Unavailable Gray PA, Louise Primary Care Unavailable Leeann Hawkins Attending Unavailable Gray PA, Louise Referring Unavailable Gray PA, Louise Primary Care Unavailable Amee Schaffer Attending Unavailable Gray PA, Louise Primary Care Unavailable Ning Oquendo Attending Unavailable Gray PA, Louise Primary Care Unavailable Ning Oquendo Referring Unavailable Gray PA, Louise Primary Care Unavailable Ning Oquendo Referring Unavailable Ning Oquendo Attending Unavailable Amee Schaffer Attending Unavailable Amee Schaffer Consulting Unavailable Gray PA, Louise Primary Care Unavailable Hannah Mercado Attending Unavailable Gray PA, Louise Primary Care Unavailable Gray PA, Louise Referring Unavailable Ning Oquendo Attending Unavailable Gray PA, Louise Primary Care Unavailable Jenny So Attending Unavailable Gray PA, Louise Referring Unavailable Gray PA, Louise Primary Care Unavailable Amee Schaffer Attending Unavailable Gray PA, Louise Primary Care Unavailable Gray PA, Louise Referring Unavailable [place] MILL CONTROL OPERATORBessie Attending Unavailable Gray PA, Louise Referring Unavailable Gray PA, Louise Primary Care Unavailable Shyla MILL CONTROL OPERATORBessie Attending Unavailable Gray PA, Louise Referring Unavailable Gray PA, Louise Primary Care Unavailable Shyla MILL CONTROL OPERATORBessie Attending Unavailable Gray PA, Louise Referring Unavailable Gray PA, Louise Primary Care Unavailable Mallory Dover Attending Unavailabl e Gray PA, Louise Primary Care Unavailable Jenny So Referring Unavailable Jenny So Attending Unavailable Gray PA, Louise Primary Care Unavailable Ning Oquendo Attending Unavailable Gray PA, Louise Primary Care Unavailable Ning Oquendo Referring Unavailable [place] MILL CONTROL OPERATORBessie Referring Unavailable Shyla MILL CONTROL OPERATORBessie Attending Unavailable Gray PA, Louise Primary Care Unavailable Mallory Dover Attending Unavailabl e Gray PA, Louise Primary Care Unavailable Gray PA, Louise Referring Unavailable Shyla MILL CONTROL OPERATOR, Bessie Referring Unavailable Shyla MILL CONTROL OPERATORBessie Attending Unavailable Gray PA, Louise Primary Care Unavailable Amee Schaffer Admitting Unavailable Amee Schaffer Attending Unavailable Gray PA, Louise Primary Care Unavailable Ning Oquendo Attending Unavailable Gray PA, Louise Primary Care Unavailable Gray PA, Louise Referring Unavailable Gray Louise GILES Referring Unavailable Ning Oquendo Attending Unavailable Gray Louise GILES Primary Care Unavailable Amee Schaffer Attending Unavailable Gray Louise GILES Primary Care Unavailable Gray Louise GILES Referring Unavailable Gray Louise GILES Referring Unavailable Gray Louise GILES Primary Care Unavailable Ning Oquendo Attending Unavailable Allergies Allergy Classification Reported Allergen(s) Allergy Type Date of Onset Reaction(s) Facility (18 sources) Penicillins; Translations: [PENICILLINS] Propensity to adverse reactions to drug (disorder) 8 Rash [facility] Repository (18 sources) Penicillin V Drug Allergy [facility]. Medications Current Medications Medication Drug [...] , unspecified Complies with drug therapy Vit,Jonathan 28-Pnev-Pdhms (Prenatabs Fa) 29-1 mg tablet (4 sources) Start: 01-01-2025 Vit,Jonathan 70-Kftd-Pljge (Prenatabs Fa) 29-1 mg tablet Active 1 {tbl} PO Q24H January 01, 2025 12:00am Complies with drug therapy Start: 01-01-2025 Vit,C al 34-Qvsh-Otnht (Prenatabs Fa) 29-1 mg tablet Active 1 [...] 24, 2018 4:14pm Start: 10-07-2017 End: 05-24-2018 Prenat.Vits,Jonathan,Glb-Wukv-Ozw ic ( Vitamin) tablet Discontinued 1 {tbl} PO daily October 07, 2017 12:00am May 24, 2018 4:14pm Start: 10-07-2017 End: 05-24-2018 take 1 tablet by mouth once daily Prenat.Vits,Jonathan,Dgo-Jthz-Hkcci ( Vitamin) tablet Discontinued 1 TABLET PO [...] Episodic Comment on above: pap done at [facility] visi t. ASCUS can not rule out HGSIL. Sonoita on 10/25/20 Contraceptive and procreative management (1 [...] above: , LITA 02/26/25, PC: Andreina & Steafnia *TWINS*, BF Will PRR LITA 05/24/18 Andreina [...] change of anti-depressant - Patient has seen [facility] in the past and was seen for depression. Provider started pt. on bupropion 300 mg and medication was helping pt. 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 reviewed by [facility] 04-14-2014 Unclassified (18 sources) Eye symptoms - [...] Note for Upper respiratory infection: reviewed by [facility] 01-12-2013 Unclassified (18 sources) Allergic rhinitis - [...] [facility] Unclassified (9 sources) Obesity follow-up [...] on wegovypt is down 32 lbs since [facility] Neck 15Bust 49.25waist 50.75hips 49.5I think [...] Test Name Value Interpretation Reference Range Facility Recruiting Administrator Office Visit Reporton 02-06-2025 Recruiting Administrator Office Visit Report [facility] [address], [address] [place] [address] OFFICE VISIT Date of Service: 02/06/25 MR#: [id number] Acct: [id number] Name: PATTY ALVAREZ Rep #: [id number] : 1995 Provider: ARAVIND Hernandez ams Age/Sex: 29/F [place] [facility] Status: Signed Intake Vital Signs 12/21/24 10:25 01/30/25 14:08 02/06/25 13:04 Height 5 ft 3 in 5 ft 3 in 5 ft 3 in Weight: 283 lb 9 oz BMI 50.2 BP 118/78 Intake Visit Reasons: 37wk1d ob/nst * 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 Equipment Required: No Is patient in pain?: No [...] 2 current occupational status: employed 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 current occupational exposures/hazards: No [...] times per week duration: < 15 minutes/day karo/evangelical: None seatbelt use: always do you feel [...] full term 6lb 1oz Female spinal [facility] Amee Manuel 05/10/18 Stefania 38 live - full term 6lbs 5oz Female spin al [facility] Amee Schaffer 10/15/20 10 spontaneous Delivery Date: 05/10/18 Last Updated by: Laine Harden Twins; Breech/Breech Delivery Date: 05/10/18 Last Updated by: Laine Harden Twins; Breech/Breech Delivery Date: 10/15/20 Last Updated by: Hannah Mercado RN D - [facility] HPI 37wk1d ob/nst * Details: PATTY ALVAREZ [...] for the ge (more content not included)... [facility] Rule out Beta Strep (Grp. B) on 02-01-2025 NHUNG Group B Beta Streptococcus is not isolated. Normal [facility] Comment on above: Performed By: #### M 100.3400 #### [facility] Laboratory [address] [place], [place], [address] OB Limited With Biometricson 01-31-2025 OB Limited With Biometrics [facility] Imaging Services [address] [place] [address] OB Limited With Biometrics MR#: [id number] Acct: [id number] Name: PATTY ALVAREZ Rep #: [id number] : 1995 F 29 From: Albert brown MD PCP: Louise Moon PA-C Status: REG CLI Study: OB Limited With Biometrics Date of Exam: 01/31 Exam# [id number] Ordering Dr: Ning Oquendo CNM ADDENDUM by Dr. Albert Benjamin MD on 02/06/25 at 1413 Addendum report for voice recognition error. Amniotic fluid volume: 11.8 cm. Estimated weight: 3629 g plus/-544 g. Reading Location: [place] [address] 02/06/254 Date cc: ARAVIND Oquendo; ERIK Moon [...] 38 weeks and 6 days. Reading Location: [place] [address] CC: ARAVIND Oquendo; ERIK Moon Commercial Litigation Associate: Signed Normal [facility] Recruiting Administrator Office Visit Reporton 01-30-2025 Recruiting Administrator Office Visit Report [facility] [address], [address] [place] [address] OFFICE VISIT Date of Service: 01/30/25 MR#: [id number] Acct: [id number] Name: PATTY ALVAREZ Rep #: [id number] : 1995 Provider: Dr. Mallory Koch DO Age/Sex: 29/F Location: 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 current occupational exposures/hazards: No [...] times per week duration: < 15 minutes/day karo/evangelical: None seatbelt use: always do you feel [...] full term 6lb 1oz Female spinal [facility] Amee Manuel 05/10/18 Stefania 38 live - full term 6lbs 5oz Female spin al [facility] Amee Schaffer 10/15/20 10 spontaneous Delivery Date: 05/10/18 Last Updated by: Laine Harden Twins; Breech/Breech Delivery Date: 05/10/18 Last Updated by: Laine Harden Twins; Breech/Breech Delivery Date: 10/15/20 Last Updated by: Hannah Mercado RN D C - [facility] HPI 36wk1d ob/nst * Details: PATTY ALVAREZ [...] placed. R (more content not included)... Normal [facility] Recruiting Administrator Office Visit Reporton 01-25-2025 Recruiting Administrator Office Visit Report [facility] Care [address] [place] [address], [address] [place] [address] OFFICE VISIT Date of Service: 01/25/25 MR#: [id number] Acct: [id number] Name: PATTY ALVAREZ Rep #: [id number] : 1995 Provider: Dr. 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 Date Name GA/Weeks Outcome Route Bth Weight Gen Labor Lgth Anesthesia Del [facility] Provider FOB 05/10/18 Andreina 38 live - full term 6lb 1oz Female spinal [facility] 05/10/18 Stefania 38 live - full term 6lbs 5oz Female spin al [facility] 10/15/20 10 spontaneous Delivery Date: 05/10/18 Last Updated by: Laine Harden Twins; Breech/Breech Delivery Date: 05/10/18 Last Updated by: Laine Harden Twins; Breech/Breech Delivery Date: 10/15/20 Last Updated by: MICH Cervantes C - [facility] HPI 35wk NST ONLY Details: PATTY ALVAREZ [...] orders p (more content not included)... Normal [facility] - Chemistry and C hemistry - challengeOrdered By: Amee Schaffer on 01-20-2025 Glucose Ql (U) Negative [facility] - UrinalysisOrder ed By: Amee Schaffer on 01-20-2025 Protein Ql (U) Negative [facility] Recruiting Administrator Office Visit Reporton 01-20-2025 Recruiting Administrator Office Visit Report [facility] [address], [address] [place] [address] OFFICE VISIT Date of Service: 01/20/25 MR#: [id number] Acct: [id number] Name: PATTY ALVAREZ Rep #: [id number] : 1995 Provider: Dr. Amee alvarez MD Age/Sex: 29/F Location: 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 current occupational exposures/hazards: No [...] times per week duration: < 15 minutes/day karo/evangelical: None seatbelt use: always do you feel [...] full term 6lb 1oz Female spinal [facility] Amee Manuel 05/10/18 Stefania 38 live - full term 6lbs 5oz Female spin al [facility] Manuel 10/15/20 10 spontaneous Delivery Date: 05/10/18 Last Updated by: Laine Harden Twins; Breech/Breech Delivery Date: 05/10/18 Last Updated by: Laine Harden Twins; Breech/Breech Delivery Date: 10/15/20 Last Updated by: Hannah Mercado RN D C - [facility] HPI 34wk5d ob/nst * Details: PATTY ALVAREZ [...] most cu (more content not included)... Normal [facility] - Chemistry and C hemistry - challengeOrdered By: Ning Oquendo on 01-06-2025 Glucose Ql (U) Negative [facility] - UrinalysisOrder ed By: Ning Oquendo on 01-06-2025 Protein Ql (U) Negative [facility] Recruiting Administrator Office Visit Reporton 01-06-2025 Recruiting Administrator Office Visit Report [facility] [address] [place] [address], [address] [place] [address] OFFICE VISIT Date of Service: 01/06/25 MR#: [id number] Acct: [id number] Name: PATTY ALVAREZ Rep #: [id number] : 1995 Provider: ARAVIND Hernandez ams Age/Sex: 29/F Location: 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 current occupational exposures/hazards: No [...] times per week duration: < 15 minutes/day karo/evangelical: None seatbelt use: always do you feel [...] term 6lb 1oz Female spinal [facility] Manuel 05/10/18 Stefania 38 live - full term 6lbs 5oz Female spin al [facility] Manuel 10/15/20 10 spontaneous Delivery Date: 05/10/18 Last Updated by: Laine Harden Twins; Breech/Breech Delivery Date: 05/10/18 Last Updated by: Laine Harden Twins; Breech/Breech Delivery Date: 10/15/20 Last Updated by: MICH Cervantes C - [facility] HPI 32wk ob * Details: PATTY ALVAREZ [...] Problem lis (more content not included)... Normal [facility] OB Triage Progress Noteon OB Triage Progress Note [facility] Medical Records Department [address] [place] [address] OB Triage Progress Note 01/01/25 1234 MR#: [id number] Acct: [id number] Name: PATTY ALVAREZ Rep #: [id number] : 1995 29 From: Amee Schaffer MD PCP: Louise Moon PA-C Status:LAINEY Thomas DOS: Location: [facility]OUT Progress Notes Date of Service: 01/01/25 Progress Note: Patient presents for triage evaluation secondary to decresaed movement FHT: 130 Moderate variability reactive no decelerations category I tracing [place]: no regular Contractions Assessment and plan: decresaed movement Reactive NST, reassuring maternal and status patient discharged to home to follow-up as scheudled. See problem list details for additional plan information. Charges/Coding Procedures Urinary/Genital 52xxx-59xxx: 96716-21 non-stress test Interp 01/01/25 1234 Date Amee [...] Dr. Amee Schaffer MD * Signed Normal [facility] - Chemistry and C hemistry - challengeOrdered By: Mallory Chopra on 12-21-2024 Glucose Ql (U) Negative [facility] - UrinalysisOrder ed By: Mallory Chopra on 12-21-2024 Protein Ql (U) Negative [facility] Recruiting Administrator Office Visit Reporton 12-21-2024 Recruiting Administrator Office Visit Report [facility] [address], [address] [place] [address] OFFICE VISIT Date of Service: 12/21/24 MR#: [id number] Acct: [id number] Name: PATTY ALVAREZ Rep #: [id number] : 1995 Provider: Dr. 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 current occupational exposures/hazards: No [...] times per week duration: < 15 minutes/day karo/evangelical: None seatbelt use: always do you feel [...] - full term 6lb 1oz Female spinal [facility] Manuel 05/10/18 Stefania 38 live - full term 6lbs 5oz Female spin al [facility] 10/15/20 10 spontaneous Delivery Date: 05/10/18 Last Updated by: Laine Harden Twins; Breech/Breech Delivery Date: 05/10/18 Last Updated by: Laine Harden Twins; Breech/Breech Delivery Date: 10/15/20 Last Updated by: Hannah Mercado RN D C - [facility] HPI 30 wk ob * Details: PATTY [...] provided. Contin (more content not included)... Normal [facility] Gestational GTT 3HR 100gon 0 12-13-2024 GEST GTT 100gm High [facility] Comment on above: Order Comment: Y Result [...] 12/13/24 1031 Performed By: #### L 500.4710 ####[facility] [address] [place], [address] Quantitative serum or plasma 3 hour gestational glucose tolerance panelOrdered By: Bessie Mansfield on 12-13-2024 Glucose tolerance 3 hours gestational panel See comment [facility] Comment on above: FASTING 87 Col: 0810/12 [...] Auto (Unsp spec) [#/Vol] 1.30 10*3/uL 0.83-4.51 [facility] Absolute neutrophil countOrd ered By: Bessie Mansfield on 12-06-2024 Neutrophils (Bld) [#/Vol] 7.7 10*3/uL 2.0-7.7 [facility] Automated lymphocyte count a s percentage of total leukocytesOrdered By: Bessie Mansfield on 12-06-2024 Lymphocytes/100 WBC Auto (Unsp spec) 13.5 % Low 19-41 [facility] Basophil percentageOrdered B y: Bessie Mansfield on 12-06-2024 Basophils/100 WBC (Bld) 0.2 % 0-1 [facility] CBC W/Diff, Automatedon 11-18 Absolute Lymph 1.30 X10 3/uL Normal 0.83-4.51 [facility] Comment on above: Performed By: #### L 509.8002, L3890.6006, L100.0100, L501.0250 #### [facility] [address] [place], [address] Absolute Neut 7.7 X10 3/uL Normal 2.0-7.7 [facility] Comment on above: Performed By: #### L 509.8002, L3890.6006, L100.0100, L501.0250 #### [facility] [address] [place], [address] Basophils/100 WBC (Bld) 0.2 % Normal 0-1 [facility] Comment on above: Performed By: #### L 509.8002, L3890.6006, L100.0100, L501.0250 #### [facility] [address] [place], [address] Eosinophils/100 WBC (Bld) 1.0 % Normal 0-5 [facility] Comment on above: Performed By: #### L 509.8002, L3890.6006, L100.0100, L501.0250 #### [facility] [address] [place], [address] Erythrocyte distribution width (RBC) [Ratio] 12.3 % Normal 11.6-14.6 [facility] Comment on above: Performed By: #### L 509.8002, L3890.6006, L100.0100, L501.0250 #### [facility] [address] [place], [address] Hematocrit (Bld) [Volume fraction] 36.2 % Low 37-47 [facility] Comment on above: Performed By: #### L 509.8002, L3890.6006, L100.0100, L501.0250 #### [facility] [address] [place], [address] Hemoglobin (Bld) [Mass/Vol] 12.5 g/dL Normal 12.0-15.0 [facility] Comment on above: Performed By: #### L 509.8002, L3890.6006, L100.0100, L501.0250 #### [facility] [address] [place], [address] IG% 1.200 High 0.0-0.9 [facility] Comment on above: Result Comment: IG% - Immature Granulocytes (promyelocytes, myelocytes and metamyelocytes) > 1% indicates that a LEFT SHIFT is Present. Performed By: #### L 509.8002, L3890.6006, L100.0100, L501.0250 #### [facility] [address] [place], [address] Lymphocytes/100 WBC (Bld) 13.5 % Low 19-41 [facility] Comment on above: Performed By: #### L 509.8002, L3890.6006, L100.0100, L501.0250 #### [facility] [address] [place], [address] MCH (RBC) [Entitic mass] 31.8 pg Normal 27.0-32.0 [facility] Comment on above: Performed By: #### L 509.8002, L3890.6006, L100.0100, L501.0250 #### [facility] [address] [place], [address] MCHC (RBC) [Mass/Vol] 34.5 g/dL Normal 32-36 [facility] Comment on above: Performed By: #### L 509.8002, L3890.6006, L100.0100, L501.0250 #### [facility] [address] [place], [address] MCV (RBC) [Entitic vol] 92.1 fL Normal 81-99 [facility] Comment on above: Performed By: #### L 509.8002, L3890.6006, L100.0100, L501.0250 #### [facility] [address] [place], [address] Monocytes/100 WBC (Bld) 3.8 % Normal 0-10 [facility] Comment on above: Performed By: #### L 509.8002, L3890.6006, L100.0100, L501.0250 #### [facility] [address] [place], [address] Neutrophils/100 WBC (Bld) 80.3 % High 47-70 [facility] Comment on above: Performed By: #### L 509.8002, L3890.6006, L100.0100, L501.0250 #### [facility] [address] [place], [address] Nucleated RBC (Bld) [#/Vol] 0 10*3/uL Normal 0-5 [facility] Comment on above: Performed By: #### L 509.8002, L3890.6006, L100.0100, L501.0250 #### [facility] [address] [place], [address] Platelet mean volume (Bld) [Entitic vol] 12.1 fL High 6.2-12.0 [facility] Comment on above: Performed By: #### L 509.8002, L3890.6006, L100.0100, L501.0250 #### [facility] [address] [place], [address] Platelets (Bld) [#/Vol] 205 10*3/uL Normal 150-450 [facility] Comment on above: Performed By: #### L 509.8002, L3890.6006, L100.0100, L501.0250 #### [facility] [address] [place], [address] RBC (Bld) [#/Vol] 3.93 10*6/uL Low 4.2-5.4 [facility] Comment on above: Performed By: #### L 509.8002, L3890.6006, L100.0100, L501.0250 #### [facility] [address] [place], [address] RDW SD 41.9 fl Normal 35.1-43.9 [facility] Comment on above: Performed By: #### L 509.8002, L3890.6006, L100.0100, L501.0250 #### [facility] [address] [place], [address] WBC (Bld) [#/Vol] 9.6 10*3/uL Normal 4.4-11.0 [facility] Comment on above: Performed By: #### L 509.8002, L3890.6006, L100.0100, L501.0250 #### [facility] [address] [place], [address] Eosinophil percentageOrdered By: Bessie Mansfield on 12-06-2024 Eosinophils/100 WBC (Bld) 1.0 % 0-5 [facility] Erythrocyte distribution wid th ratioOrdered By: Bessie Mansfield on 12-06-2024 Erythrocyte distribution width (RBC) [Ratio] 12.3 % 11.6-14.6 [facility] Erythrocyte distribution wid th standard deviationOrdered By: Bessie Mansfield on 12-06-2024 Erythrocyte distribution width (RBC) [Ratio] 41.9 fl 35.1-43.9 [facility] Glucose Challenge Gest 1H 50 juan diego 12-06-2024 GLU GEST 50g 1H 168 mg/dL High 70-140 [facility] Comment on above: Result Comment: AMENDED REPORT 12/06/241709 GLU GEST 50g 1H previously reported as: 168 H mg/dL Performed By: #### L 509.8002, L3890.6006, L100.0100, L501.0250 #### [facility] [address] [facility] [place], [address] Glucose measurement at 2 gabriella rs post-dose gestational glucose tolerance testOrdered By: Bessie Mansfield on 12-06-2024 Glucose [Mass/Vol] 167 mg/dL High 70-140 [facility] Comment on above: Previous reported re sult: 168 mg/dLEdited by: JARED on 12/06/24:1710 AMENDED REPORT 12/06/241709 GLU GEST 50g 1H previously reported as: 168 H mg/dL HIVon 12-06-2024 HIV Non-Reactive Normal Nonreactive [facility] Comment on above: Result Comment: Non- Reactive Reactive Repeatedly reactive samples must be confirmed according to CDC recommended confirmatory algorithms. The subresults for either HIVAG or AHIV can be used as an aid in the selection of the confirmation algorithm for reactive samples. Send out specimens with Reactive results to [facility] for confirmation. Order the HIV antibody detection and differentiation: #[id number] Performed By: #### L 509.8002, L3890.6006, L100.0100, L501.0250 ####[facility] [id number] [facility]. [place], [place], [address] Hematocrit Auto (Bld) [Volum e fraction]Ordered By: Bessie Mansfield on 12-06-2024 Hematocrit (Bld) [Volume fraction] 36.2 % Low 37-47 [facility] Hemoglobin measurementOrdere d By: Bessie Mansfield on 12-06-2024 Hemoglobin (Bld) [Mass/Vol] 12.5 g/dL 12.0-15.0 [facility] Immature granulocytes/100 WB C Auto (Bld)Ordered By: Bessie Mansfield on 12-06-2024 Immature granulocytes/100 WBC (Bld) 1.200 % High 0.0-0.9 [facility] Comment on above: IG% - Immature Granu locytes (promyelocytes, myelocytes and metamyelocytes) > 1% indicates that a LEFT SHIFT is Present. MCV (mean corpuscular volume ) determinationOrdered By: Bessie Mansfield on 12-06-2024 MCV (RBC) [Entitic vol] 92.1 fL 81-99 [facility] Mean corpuscular hemoglobin (MCH) determinationOrdered By: Bessie Mansfield on 12-06-2024 MCH (RBC) [Entitic mass] 31.8 pg 27.0-32.0 [facility] Mean corpuscular hemoglobin concentration (MCHC) determinationOrdered By: Bessie Mansfield on 12-06-2024 MCHC (RBC) [Mass/Vol] 34.5 g/dL 32-36 [facility] Mean platelet volume determi nationOrdered By: Bessie Mansfield on 12-06-2024 Platelet mean volume (Bld) [Entitic vol] 12.1 fL High 6.2-12.0 [facility] Monocyte percentageOrdered B y: Bessie Mansfield on 12-06-2024 Monocytes/100 WBC (Bld) 3.8 % 0-10 [facility] Neutrophil percentageOrdered By: Bessie Mansfield on 12-06-2024 Neutrophils/100 WBC (Bld) 80.3 % High 47-70 [facility] No Panel InformationOrdered By: Bessie Mansfield on [...] confirmation.Order the HIV antibody detection and differentiation: #[id number] Nucleated red blood cell per centageOrdered By: Bessie Mansfield on 12-06-2024 Nucleated RBC/100 WBC (Bld) [Ratio] 0 % 0-5 [facility] Recruiting Administrator Office Visit Reporton 12-06-2024 Recruiting Administrator Office Visit Report [facility] [address] [place] [address], [address] [place] [address] OFFICE VISIT Date of Service: 12/06/24 MR#: [id number] Acct: [id number] Name: PATTY ALVAREZ Rep #: [id number] : 1995 Provider: GAVIN solis Age/Sex: 29/F [place] [facility]: Signed Intake Vital Signs 09/19/24 14:11 11/15/24 13:35 12/06/24 15:34 Height 5 ft 3 in 5 ft 3 in 5 ft 3 in Weight: 273 lb 8 oz 281 lb 2 oz BMI 48.4 49.8 BP 118/78 126/72 H Intake Visit Reasons: 28wk ob/glucose 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 Is patient in pain?: No [...] 2 current occupational status: employed 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 current occupational exposures/hazards: No [...] times per week duration: < 15 minutes/day karo/evangelical: None seatbelt use: always do you feel [...] - full term 6lb 1oz Female spinal [facility] Manuel 05/10/18 Stefania 38 live - full term 6lbs 5oz Female spin al [facility] 10/15/20 10 spontaneous Delivery Date: 05/10/18 Last Updated by: Laine Harden Twins; Breech/Breech Delivery Date: 05/10/18 Last Updated by: Laine Harden Twins; Breech/Breech Delivery Date: 10/15/20 Last Updated by: MICH Cervantes C - [facility] HPI 28wk ob/glucose Details: PATTY ALVAREZ is [...] -???-???-???-???-?? ?-???-???-???-??? (more content not included)... Normal [facility] Platelet countOrdered By: Earl Mansfield on 12-06-2024 Platelets (Bld) [#/Vol] 205 10*3/uL 150-450 [facility] RBC Auto (Bld) [#/Vol]Ordere d By: Bessie Mansfield on 12-06-2024 RBC (Bld) [#/Vol] 3.93 10*6/uL Low 4.2-5.4 [facility] Syphilis Antibodieson 2024 Syphilis Abs Non-Reactive Normal Nonreactive [facility] Comment on above: Performed By: #### L 509.8002, L3890.6006, L100.0100, L501.0250 ####[facility] [id number] [place], [address] White blood cell (WBC) count Ordered By: Bessie Mansfield on 12-06-2024 WBC (Bld) [#/Vol] 9.6 10*3/uL 4.4-11.0 [facility] - Chemistry and C hemistry - challengeOrdered By: Bessie Mansfield on 11-15-2024 Glucose Ql (U) Negative [facility] - UrinalysisOrder ed By: Bessie Mansfield on 11-15-2024 Protein Ql (U) Negative [facility] Recruiting Administrator Office Visit Reporton 11-15-2024 Recruiting Administrator Office Visit Report [facility] [address], [address] [place] [address] OFFICE VISIT Date of Service: 11/15/24 MR#: [id number] Acct: [id number] Name: PATTY ALVAREZ Rep #: [id number] : 1995 Provider: GAVIN solis Age/Sex: 29/F Location: 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 Normal [facility] ANABEL BY IFA SCREEN [CCL]on Nuclear Ab IF (S) [Titer] Negative Normal Negative [facility] Comment on above: Result Comment: Anti -nuclear antibody test is used as an aid in diagnosis of systemic autoimmune diseases. Where positive and clinically warranted, follow-up using disease-specific testing is recommended. Low positive titers are not uncommon with advanced age, certain chronic infections, and malignancies among others. Test methodology: Indirect fluorescence immunoassay (IFA) using HEp-2 cells. [place] [address] [place] [address] Michel Modi III, M.D. [id number] Performed By: #### 2 71596 #### [place] [id number] CMP with eGFRon 10-24-2024 AGE 28 years Normal [facility] Comment on above: Performed By: #### 2 77477 #### [facility],[address] [place], [place] [address] Albumin [Mass/Vol] 2.8 g/dL Low 3.4 - 5.0 [facility] Comment on above: Performed By: #### 2 [address]1166 #### [address] [address] Albumin/Globulin [Mass ratio] 0.6 {ratio} Low 0.9 - 1.6 [facility] Comment on above: Performed By: #### 2 45027 #### [facility],[address] [place], [place] [address] ALK PHOS 75 U/L Normal 46 - 116 [facility] Comment on above: Performed By: #### 2 77141 #### [facility],[address] [place] [address] ALT [Catalytic activity/Vol] 23 U/L Normal 16 - 63 [facility] Comment on above: Performed By: #### 2 48954 #### [facility],[address] [place] [address] Anion gap [Moles/Vol] 16 mmol/L Normal 10 - 20 [facility] Comment on above: Performed By: #### 2 02865 #### [facility],[address] [place], [place] [address] AST [Catalytic activity/Vol] 13 U/L Normal 13 - 39 [facility] Comment on above: Performed By: #### 2 74211 #### [facility],[address] [place], [place] [address] B/C RATIO 13 ratio Normal 0 - 30 [facility] Comment on above: Performed By: #### 2 73777 #### [facility],[address] [place] [address] Bilirubin [Mass/Vol] 0.4 mg/dL Normal 0.2 - 1.0 [facility] Comment on above: Performed By: #### 2 83684 #### [facility],[address] [place] [address] Calcium [Mass/Vol] 9.0 mg/dL Normal 8.5 - 10.1 [facility] Comment on above: Performed By: #### 2 01353 #### [facility],[address] [place] [address] Chloride [Moles/Vol] 104 mmol/L Normal 98 - 107 [facility] Comment on above: Performed By: #### 2 88212 #### [facility],[address] [place] [address] CMP with eGFR Normal [facility] Comment on above: Result Comment: COMP REHENSIVE METABOLIC PANEL Performed By: #### 2 00734 #### [facility],[address] [place] [address] CO2 [Moles/Vol] 21.8 mmol/L Normal 21.0 - 32.0 [facility] Comment on above: Performed By: #### 2 91208 #### [facility],[address] [place] [address] Creatinine [Mass/Vol] 0.53 mg/dL Low 0.55 - 1.02 [facility] Comment on above: Performed By: #### 2 26512 #### [facility],[address] [place] [address] GFR/1.73 sq M.predicted among non-blacks MDRD (S/P/Bld) [Vol rate/Area] mL/min/{1.73_m2} Normal 60 - 999 [facility] Comment on above: Performed By: #### 2 48250 #### [facility],[address] [place] [address] Result Comment: ACCO RDING TO THE NATIONAL KIDNEY DISEASE EDUCATION PROGRAM(NKDE), A NORMAL eGFR IS A VALUE GREATER THAN OR EQUAL TO 60 ML/MIN/1.73 SQ METERS. CHRONIC KIDNEY DISEASE: <60mL/MIN/1.73 SQ METERS KIDNEY FAILURE: <15mL/MIN/1.73 SQ METERS THIS TEST SHOULD ONLY BE USED FOR PATIENTS 18 YEARS OF AGE AND OLDER. Globulin (S) [Mass/Vol] 4.4 g/dL High 1.5 - 3.8 [facility] Comment on above: Performed By: #### 2 48088 #### [facility],[address] [place] [address] Glucose [Mass/Vol] 88 mg/dL Normal 74 - 106 [facility] Comment on above: Performed By: #### 2 01551 #### [facility],[address] [place] [address] Potassium [Moles/Vol] 3.7 mmol/L Normal 3.5 - 5.1 [facility] Comment on above: Performed By: #### 2 58698 #### [facility],[address] [place] [address] Protein [Mass/Vol] 7.2 g/dL Normal 6.4 - 8.2 [facility] Comment on above: Performed By: #### 2 72933 #### [facility],[address] [place] [address] Sodium [Moles/Vol] 138 mmol/L Normal 136 - 145 [facility] Comment on above: Performed By: #### 2 31094 #### [facility],[address] [place] [address] Urea nitrogen [Mass/Vol] 7 mg/dL Normal 7 - 18 [facility] Comment on above: Performed By: #### 2 76459 #### [facility],[address] [place] [address] Laboratory - Chemistry and C hemistry - challengeOrdered By: Bessie Mansfield on 10-17-2024 Glucose Ql (U) Negative [facility] - UrinalysisOrder ed By: Bessie Mansfield on 10-17-2024 Protein Ql (U) Negative [facility] Recruiting Administrator Office Visit Reporton 10-17-2024 Recruiting Administrator Office Visit Report [facility] [address], [address] [place] [address] OFFICE VISIT Date of Service: 10/17/24 MR#: [id number] Acct: [id number] Name: PATTY ALVAREZ Rep #: [id number] : 1995 Provider: GAVIN solis Age/Sex: 28/F Location: 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 current occupational exposures/hazards: No [...] times per week duration: < 15 minutes/day karo/evangelical: None seatbelt use: always do you feel [...] - full term 6lb 1oz Female spinal [facility] Manuel 05/10/18 Stefania 38 live - full term 6lbs 5oz Female spin al [facility] Manuel 10/15/20 10 spontaneous Delivery Date: 05/10/18 Last Updated by: Laine Harden Twins; Breech/Breech Delivery Date: 05/10/18 Last Updated by: Laine Harden Twins; Breech/Breech Delivery Date: 10/15/20 Last Updated by: Hannah Mercado RN D C - [facility] HPI 21 wk ob * Details: PATTY [...] ?-???-???-???-???-? ??-?? (more content not included)... Normal [facility] OB INITIAL >or= 14 WEEKS; 1st GESTATon 10-10-2024 OB INITIAL >or= 14 WEEKS; 1st GESTAT [place] [address] Patient: PATTY ALVAREZ Phone#: : 1995 Age: 28 Gender: F Pt. Type: Out Account: [id number] Location: Ordering: AMEE SCHAFFER Exam Date: 10/10/2024/14:01 Family Phys: LOUISE MOON Charge Code: 944838 Physician: Bertie Order #: [id number] Dose#: PROCEDURE: OB INITIAL >14 WEEKS ULTRASOUND, [...] inal circumference ratio slightly above expected range [place] [id number] Patient: PATTY ALVAREZ Phone#: : 1995 Age: 28 Gender: F Pt. Type: Out Account: [id number] Location: Ordering: AMEE SCHAFFER Exam Date: 10/10/2024/14:01 Family Phys: LOUISE SARAI Charge Code: [id number] Physician: Bertie Order #: [id number] Dose#: Dictated by: Danielle Cali MD on 10/10/2024 at 22:18 Approved by: Danielle Cali MD on 10/10/2024 at 22:28 Normal [facility] Laboratory - Chemistry and C hemistry - challengeOrdered By: Ning Oquendo on 09-19-2024 Glucose Ql (U) Negative [facility] - UrinalysisOrder ed By: Ning Oqeundo on 09-19-2024 Protein Ql (U) Negative [facility] Recruiting Administrator Office Visit Reporton 09-19-2024 Recruiting Administrator Office Visit Report [facility] [address], [address] [place] [address] OFFICE VISIT Date of Service: 09/19/24 MR#: [id number] Acct: [id number] Name: PATTY ALVAREZ Rep #: [id number] : 1995 Provider: ARAVIND Hernandez ams Age/Sex: 28/F Location: 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 Is patient in pain?: No [...] 2 current occupational status: employed current occupation: [employer]: [employer] Marcelo current occupational exposures/hazards: No pets [...] times per week duration: < 15 minutes/day karo/evangelical: None seatbelt use: always do you feel [...] - full term 6lb 1oz [facility]18 Stefania 38 live - full term 6lbs 5oz Female spin al [facility] 10/15/20 10 spontaneous Delivery Date: 05/10/18 Last Updated by: Laine Harden Twins; Breech/Breech Delivery Date: 05/10/18 Last Updated by: Laine Harden Twins; Breech/Breech Delivery Date: 10/15/20 Last Updated by: MICH Cervantes C - [facility] HPI 17 wk ob * Details: PATTY [...] 6 oz (more content not included)... Normal [facility] Laboratory - Chemistry and C hemistry - challengeOrdered By: Amee Schaffer on 08-24-2024 Glucose Ql (U) Negative [facility] - UrinalysisOrder ed By: Amee Schaffer on 08-24-2024 Protein Ql (U) Negative [facility] Recruiting Administrator Office Visit Reporton 08-24-2024 Recruiting Administrator Office Visit Report [facility] [address], [address] [place] [address] OFFICE VISIT Date of Service: 08/24/24 MR#: [id number] Acct: [id number] Name: PATTY ALVAREZ Rep #: [id number] : 1995 Provider: Dr. 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: No Allergies Penicillins (PCN) Allergy (Verified [...] 2 current occupational status: employed current occupation: [employer]: [employer] - [employer] Marcelo current occupational exposures/hazards: [...] times per week duration: < 15 minutes/day karo/evangelical: None seatbelt use: always do you feel [...] - full term 6lb 1oz Female spinal [facility] 05/10/18 Stefania 38 live - full term 6lbs 5oz Female spin al [facility] 10/15/20 10 spontaneous Delivery Date: 05/10/18 Last Updated by: Laine Harden Twins; Breech/Breech Delivery Date: 05/10/18 Last Updated by: Laine Harden Twins; Breech/Breech Delivery Date: 10/15/20 Last Updated by: Hannah Mercado RN D C - [facility] HPI 13wk OB * Details: PATTY ALVAREZ [...] cr amp (more content not included)... Normal [facility] Urine Cultureon 08-08-2024 URC Below infection level. Mixed Gram Positive Organisms Milner Count 1000-10,000 MIXC Mixed contaminants. Submit a new specimen if indicated. Normal [facility] Comment on above: Performed By: #### M 100.2200 #### [facility] [address] 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 Is patient in pain?: No Allergies Penicillins (PCN) Allergy (Verified 08/05/24 14:32) Rash Medications ???Medication ???Instructions ???Recorded ???Confirmed ???Type docosahexaenoic acid 200 mg mg PO 07/08/24 08/05/24 History capsule ( DHA) 08/08/24 1644 Date Ning Oquendo CNM Cosigner Signature: Date (if applicable) CC: Normal [facility] Urine cultureOrdered By: Lino Oquendo on 08-05-2024 Bacteria identified Cx Nom (U) Positive Abnormal [facility] Chlamydia/GC CUCO aptimaon CHLAMY,NUC ACID Negative Normal Negative [facility] Comment on above: Performed By: #### M 100.2200, L7000.1800 ####[facility] [address] [place], [place], [address] GC BY NUC ACID Negative Normal Negative [facility] Comment on above: Result Comment: Perf ormed at: =G - [facility] [address] [id number] [employer] Supervisor: Tracie Mackenzie MD, Phone: [phone] Performed By: #### M 100.2200, L7000.1800 ####[facility] [address] [place], [address] Urine Cultureon 07-31-2024 URC Mixed Gram Positive Organisms Milner Count 50,000-80,000 MIXC Mixed contaminants. Submit a new specimen if indicated. Normal [facility] Comment on above: Performed By: #### M 100.2200, L7000.1800 ####[facility] [address] [place], [address] Absolute lymphocyte countOrd ered By: Jenny So on 07-29-2024 Lymphocytes Auto (Unsp spec) [#/Vol] 1.78 10*3/uL 0.83-4.51 [facility] Absolute neutrophil countOrd ered By: Jenny So on 07-29-2024 Neutrophils (Bld) [#/Vol] 6.4 10*3/uL 2.0-7.7 [facility] Automated lymphocyte count a s percentage of total leukocytesOrdered By: Jenny So on 07-29-2024 Lymphocytes/100 WBC Auto (Unsp spec) 20.0 % 19-41 [facility] Basophil percentageOrdered B y: Jenny So on 07-29-2024 Basophils/100 WBC (Bld) 0.2 % 0-1 [facility] C. trachomatis rRNA CUCO+prob e Ql (Unsp spec)Ordered By: Jenny So on 07-29-2024 Chlamydia DNA (CUCO) Negative Negative [facility] CBC W/Diff, Automatedon 07-19 Absolute Lymph 1.78 X10 3/uL Normal 0.83-4.51 [facility] Comment on above: Performed By: #### L 509.8002, L3890.6102, L3890.6301, BTS, L3890.6006, L501.9985, L509.4006, L100.0100 ####[facility] [address] [place], [address] Absolute Neut 6.4 X10 3/uL Normal 2.0-7.7 [facility] Comment on above: Performed By: #### L 509.8002, L3890.6102, L3890.6301, BTS, L3890.6006, L501.9985, L509.4006, L100.0100 ####[facility] [address] [place], [address] Basophils/100 WBC (Bld) 0.2 % Normal 0-1 [facility] Comment on above: Performed By: #### L 509.8002, L3890.6102, L3890.6301, BTS, L3890.6006, L501.9985, L509.4006, L100.0100 ####[facility] [address] [place], [address] Eosinophils/100 WBC (Bld) 0.7 % Normal 0-5 [facility] Comment on above: Performed By: #### L 509.8002, L3890.6102, L3890.6301, BTS, L3890.6006, L501.9985, L509.4006, L100.0100 ####[facility] [address] [place], [address] Erythrocyte distribution width (RBC) [Ratio] 11.9 % Normal 11.6-14.6 [facility] Comment on above: Performed By: #### L 509.8002, L3890.6102, L3890.6301, BTS, L3890.6006, L501.9985, L509.4006, L100.0100 ####[facility] [address] [place], [address] Hematocrit (Bld) [Volume fraction] 39.7 % Normal 37-47 [facility] Comment on above: Performed By: #### L 509.8002, L3890.6102, L3890.6301, BTS, L3890.6006, L501.9985, L509.4006, L100.0100 ####[facility] [address] [place], [address] Hemoglobin (Bld) [Mass/Vol] 13.8 g/dL Normal 12.0-15.0 [facility] Comment on above: Performed By: #### L 509.8002, L3890.6102, L3890.6301, BTS, L3890.6006, L501.9985, L509.4006, L100.0100 ####[facility] [address] [place], [address] IG% 0.700 Normal 0.0-0.9 [facility] Comment on above: Result Comment: IG% - Immature Granulocytes (promyelocytes, myelocytes and metamyelocytes) > 1% indicates that a LEFT SHIFT is Present. Performed By: #### L 509.8002, L3890.6102, L3890.6301, BTS, L3890.6006, L501.9985, L509.4006, L100.0100 ####[facility] [address] [place], [address] Lymphocytes/100 WBC (Bld) 20.0 % Normal 19-41 [facility] Comment on above: Performed By: #### L 509.8002, L3890.6102, L3890.6301, BTS, L3890.6006, L501.9985, L509.4006, L100.0100 ####[facility] [address] [place], [address] MCH (RBC) [Entitic mass] 32.0 pg Normal 27.0-32.0 [facility] Comment on above: Performed By: #### L 509.8002, L3890.6102, L3890.6301, BTS, L3890.6006, L501.9985, L509.4006, L100.0100 ####[facility] [address] [place], [address] MCHC (RBC) [Mass/Vol] 34.8 g/dL Normal 32-36 [facility] Comment on above: Performed By: #### L 509.8002, L3890.6102, L3890.6301, BTS, L3890.6006, L501.9985, L509.4006, L100.0100 ####[facility] [address] [place], [address] MCV (RBC) [Entitic vol] 92.1 fL Normal 81-99 [facility] Comment on above: Performed By: #### L 509.8002, L3890.6102, L3890.6301, BTS, L3890.6006, L501.9985, L509.4006, L100.0100 ####[facility] [address] [place], [address] Monocytes/100 WBC (Bld) 6.7 % Normal 0-10 [facility] Comment on above: Performed By: #### L 509.8002, L3890.6102, L3890.6301, BTS, L3890.6006, L501.9985, L509.4006, L100.0100 ####[facility] [address] [place], [address] Neutrophils/100 WBC (Bld) 71.7 % High 47-70 [facility] Comment on above: Performed By: #### L 509.8002, L3890.6102, L3890.6301, BTS, L3890.6006, L501.9985, L509.4006, L100.0100 ####[facility] [address] [place], [address] Nucleated RBC (Bld) [#/Vol] 0 10*3/uL Normal 0-5 [facility] Comment on above: Performed By: #### L 509.8002, L3890.6102, L3890.6301, BTS, L3890.6006, L501.9985, L509.4006, L100.0100 ####[facility] [address] [place], [address] Platelet mean volume (Bld) [Entitic vol] 12.2 fL High 6.2-12.0 [facility] Comment on above: Performed By: #### L 509.8002, L3890.6102, L3890.6301, BTS, L3890.6006, L501.9985, L509.4006, L100.0100 ####[facility] [address] [place], [address] Platelets (Bld) [#/Vol] 214 10*3/uL Normal 150-450 [facility] Comment on above: Performed By: #### L 509.8002, L3890.6102, L3890.6301, BTS, L3890.6006, L501.9985, L509.4006, L100.0100 ####[facility] [address] [place], [address] RBC (Bld) [#/Vol] 4.31 10*6/uL Normal 4.2-5.4 [facility] Comment on above: Performed By: #### L 509.8002, L3890.6102, L3890.6301, BTS, L3890.6006, L501.9985, L509.4006, L100.0100 ####[facility] [address] [place], [address] RDW SD 40.1 fl Normal 35.1-43.9 [facility] Comment on above: Performed By: #### L 509.8002, L3890.6102, L3890.6301, BTS, L3890.6006, L501.9985, L509.4006, L100.0100 ####[facility] [address] [place], [address] WBC (Bld) [#/Vol] 8.9 10*3/uL Normal 4.4-11.0 [facility] Comment on above: Performed By: #### L 509.8002, L3890.6102, L3890.6301, BTS, L3890.6006, L501.9985, L509.4006, L100.0100 ####[facility] [address] [place], [address] Chlamydia trachomatis rRNA d etection by probe and target amplification methodOrdered By: Jenny So on 07-29-2024 C. trachomatis rRNA CUCO+probe Ql (Unsp spec) Negative Negative [facility] Eosinophil percentageOrdered By: Jenny So on 07-29-2024 Eosinophils/100 WBC (Bld) 0.7 % 0-5 [facility] Erythrocyte distribution wid th (RBC) [Ratio]Ordered By: Jenny So on 07-29-2024 Erythrocyte distribution width (RBC) [Entitic vol] 40.1 fL 35.1-43.9 [facility] Erythrocyte distribution wid th ratioOrdered By: Jenny So on 07-29-2024 Erythrocyte distribution width (RBC) [Ratio] 11.9 % 11.6-14.6 [facility] Erythrocyte distribution wid th standard deviationOrdered By: Jennytay So on 07-29-2024 Erythrocyte distribution width (RBC) [Ratio] 40.1 fl 35.1-43.9 [facility] HBV surface Ag Ql (S)Ordered By: Jenny So on 07-29-2024 Hepatitis B Surface Antigen Non-Reactive Nonreactive [facility] Comment on above: Reactive: Presumptiv e evidence of HBV. Repeatedly reactive samples must be confirmed using a neutralization test ([employer] HBsAg Confirmatory Test)Non-Reactive: HBsAg not detected; does not exclude the possibility of exposure to HBV HIVon 07-29-2024 HIV Non-Reactive Normal Nonreactive [facility] Comment on above: Result Comment: Non- Reactive Reactive Repeatedly reactive samples must be confirmed according to CDC recommended confirmatory algorithms. The subresults for either HIVAG or AHIV can be used as an aid in the selection of the confirmation algorithm for reactive samples. Send out specimens with Reactive results to [facility] for confirmation. Order the HIV antibody detection and differentiation: lc#[id number] Performed By: #### L 509.8002, L3890.6102, L3890.6301, BTS, L3890.6006, L501.9985, L509.4006, L100.0100 ####[facility] [address] [place], [place], [address] Hematocrit Auto (Bld) [Volum e fraction]Ordered By: Jenny So on 07-29-2024 Hematocrit (Bld) [Volume fraction] 39.7 % 37-47 [facility] Hemoglobin A1con 07-29-2024 HbA1c (Bld) [Mass fraction] 4.9 % Normal <=5.6 [facility] Comment on above: Result Comment: Norm al < 5.7 % Prediabetic 5.7 - 6.4 % Diabetic >or= 6.5 % Please note range changes. Performed By: #### L 509.8002, L3890.6102, L3890.6301, BTS, L3890.6006, L501.9985, L509.4006, L100.0100 ####[facility] [address] [place], [place], [address] Hemoglobin A1c percentageOrd ered By: Jenny So on 07-29-2024 HbA1c (Bld) [Mass fraction] 4.9 % <5.7 [facility] Comment on above: Normal < 5.7 % Predi abetic 5.7 - 6.4 % Diabetic >or= 6.5 % Please note range changes. Hemoglobin measurementOrdere d By: Jenny So on 07-29-2024 Hemoglobin (Bld) [Mass/Vol] 13.8 g/dL 12.0-15.0 [facility] Hepatitis C Antibodyon 07-29 Hepatitis C Ab Non-Reactive Normal Nonreactive [facility] Comment on above: Result Comment: Reac tive: Presumptive evidence of antibodies to HCV. Follow CDC recommendations for supplemental testing. Non-Reactive: Antibodies to HCV were not detected; does not exclude the possibility of exposure to HCV Reactive Results are presumptive evidence of antibodies to HCV. Follow CDC recommendations for supplemental testing. Order confirmation testing: HCV Quant by PCR testing - HCVPCR #[id number] Non Reactive: < 0.8 Equivocal: >/= 0.8 to < 1.0 Reactive: >/= 1.0 The CDC requires that a reactive/equivocal HCV antibody result be sent out for confirmation. HCV Quant by PCR testing. Performed By: #### L 509.8002, L3890.6102, L3890.6301, BTS, L3890.6006, L501.9985, L509.4006, L100.0100 ####[facility] [address] [place], [place], [address] Hepatitis C antibodyOrdered By: Jenny So on 07-29-2024 Hepatitis C Antibody Non-Reactive Nonreactive [facility] Comment on above: Reactive: Presumptiv e evidence of antibodies to HCV. Follow CDC recommendations for supplemental testing.Non-Reactive: Antibodies to HCV were not detected; does not exclude the possibility of exposure to HCVReactive Results are presumptive evidence of antibodies to HCV. Follow CDC recommendations for supplemental testing.Order confirmation testing: HCV Quant by PCR testing - HCVPCR #[id number] Non Reactive: < 0.8 Equivocal: >/= 0.8 to < 1.0 Reactive: >/= 1.0The CDC requires that a reactive/equivocal HCV antibody result be sent out for confirmation. HCV Quant by PCR testing. Immature granulocytes/100 WB C Auto (Bld)Ordered By: Jenny So on 07-29-2024 Immature granulocytes/100 WBC (Bld) 0.700 % 0.0-0.9 [facility] Comment on above: IG% - Immature Granu locytes (promyelocytes, myelocytes and metamyelocytes) > 1% indicates that a LEFT SHIFT is Present. L3890.6102on 07-29-2024 HEP B Surf Ag Non-Reactive Normal Nonreactive [facility] Comment on above: Result Comment: Reac tive: Presumptive evidence of HBV. Repeatedly reactive samples must be confirmed using a neutralization test ([employer] HBsAg Confirmatory Test) Non-Reactive: HBsAg not detected; does not exclude the possibility of exposure to HBV Performed By: #### L 509.8002, L3890.6102, L3890.6301, BTS, L3890.6006, L501.9985, L509.4006, L100.0100 ####[facility] [address] [place], [place], [id number] L509.4006on 07-29-2024 Rubella IgG REAC Normal Nonreactive [facility] Comment on above: Result Comment: Anti body Result: Interpretation Non-Reactive: Non-Immune Reactive: Immune The following results were obtained with the [employer] Rubella IgG assay. Results from assays of other manufacturers cannot be used interchangeably. Performed By: #### L 509.8002, L3890.6102, L3890.6301, BTS, L3890.6006, L501.9985, L509.4006, L100.0100 ####[facility] [address] [facility]. [place], [place], [id number] Laboratory - Microbiology an d Antimicrobial susceptibilityOrdered By: Jenny So on 07-29-2024 HBV surface Ag Ql (S) Non-Reactive Nonreactive [facility] Comment on above: Reactive: Presumptiv e evidence of HBV. Repeatedly reactive samples must be confirmed using a neutralization test ([employer] HBsAg Confirmatory Test)Non-Reactive: HBsAg not detected; does not exclude the possibility of exposure to HBV Lymphocytes Auto (Unsp spec) [#/Vol]Ordered By: Jenny So on 07-29-2024 Lymphocytes (Bld) [#/Vol] 1.78 10*3/uL 0.83-4.5 1 [facility] Lymphocytes/100 WBC Auto (Un sp spec)Ordered By: Jenny So on 07-29-2024 Lymphocytes/100 WBC (Bld) 20.0 % 19-41 [facility] MCV (mean corpuscular volume ) determinationOrdered By: Jenny So on 07-29-2024 MCV (RBC) [Entitic vol] 92.1 fL 81-99 [facility] Mean corpuscular hemoglobin (MCH) determinationOrdered By: Jenny So on 07-29-2024 MCH (RBC) [Entitic mass] 32.0 pg 27.0-32.0 [facility] Mean corpuscular hemoglobin concentration (MCHC) determinationOrdered By: Jenny So on 07-29-2024 MCHC (RBC) [Mass/Vol] 34.8 g/dL 32-36 [facility] Mean platelet volume determi nationOrdered By: Jenny So on 07-29-2024 Platelet mean volume (Bld) [Entitic vol] 12.2 fL High 6.2-12.0 [facility] Monocyte percentageOrdered B y: Jenny So on 07-29-2024 Monocytes/100 WBC (Bld) 6.7 % 0-10 [facility] Neisseria gonorrhoeae nuclei c acid detection by amplified probe techniqueOrdered By: Jenny So on 07-29-2024 N. gonorrhoeae DNA CUCO+probe Ql (Unsp spec) Negative Negative [facility] Comment on above: Performed at: =[address] [id number] Director: Tracie Mackenzie MD, Phone: [phone] Neutrophil percentageOrdered By: Jenny So on 07-29-2024 Neutrophils/100 WBC (Bld) 71.7 % High 47-70 [facility] No Panel InformationOrdered By: Jenny So on [...] confirmation.Order the HIV antibody detection and differentiation: #[id number] Nucleated red blood cell per centageOrdered By: Jenny So on 07-29-2024 Nucleated RBC/100 WBC (Bld) [Ratio] 0 % 0-5 [facility] Recruiting Administrator Office Visit Reporton 07-29-2024 Recruiting Administrator Office Visit Report [facility] [address], [address] [place] [address] OFFICE VISIT Date of Service: 07/29/24 MR#: [id number] Acct: [id number] Name: PATTY ALVAREZ Rep #: [id number] : 1995 Provider: ARAVIND gan Age/Sex: 28/F Location: 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 current occupational exposures/hazards: No [...] times per week duration: < 15 minutes/day karo/evangelical: None seatbelt use: always do you feel [...] term 6lb 1oz Female spinal Wo femi [facility] [employer] [facility] Manuel 05/10/18 Stefania 38 live - full term 6lbs 5oz Female spin al [facility] Amee Schaffer 10/15/20 10 spontaneous Delivery Date: 05/10/18 Last Updated by: Laine Harden Twins; Breech/Breech Delivery Date: 05/10/18 Last Updated by: Laine Harden Twins; Breech/Breech Delivery Date: 10/15/20 Last Updated by: MICH Cervantes [facility] - [facility] HPI New OB, LMP 05/22, LITA 02/26 [...] LMP: defini (more content not included)... Normal [facility] Platelet countOrdered By: Neena So on 07-29-2024 Platelets (Bld) [#/Vol] 214 10*3/uL 150-450 [facility] RBC Auto (Bld) [#/Vol]Ordere d By: Jenny So on 07-29-2024 RBC (Bld) [#/Vol] 4.31 10*6/uL 4.2-5.4 [facility] Rubella immune status determ ination by IgG antibody assayOrdered By: Jenny So on 07-29-2024 Rubella IgG Antibody REAC Nonreactive [facility] Comment on above: Antibody Result: Int erpretationNon-Reactive: Non-ImmuneReactive: ImmuneThe following results were obtained with the [employer] Rubella IgG assay. Results from assays of other manufacturers cannot be used interchangeably. Syphilis Antibodieson 2024 Syphilis Abs Non-Reactive Normal Nonreactive [facility] Comment on above: Performed By: #### L 509.8002, L3890.6102, L3890.6301, BTS, L3890.6006, L501.9985, L509.4006, L100.0100 ####[facility] [address] [place], [address] T. pallidum abOrdered By: Neena So on 07-29-2024 Syphilis Total Antibody Non-Reactive Nonreactiv e [facility] Type AND Screenon 07-29-2024 Ab SCREEN GEL Negative Normal [facility] Comment on above: Order Comment: PN Performed By: #### L 509.8002, L3890.6102, L3890.6301, BTS, L3890.6006, L501.9985, L509.4006, L100.0100 ####[facility] [address] [place], [address] Urine cultureOrdered By: Carla So on 07-29-2024 Bacteria identified Cx Nom (U) Positive Abnormal [facility] White blood cell (WBC) count Ordered By: Jenny So on 07-29-2024 WBC (Bld) [#/Vol] 8.9 10*3/uL 4.4-11.0 [facility] Recruiting Administrator Office Visit Reporton 07-21-2024 Recruiting Administrator Office Visit Report [facility] [address], [address] [place] [address] OFFICE VISIT Date of Service: 07/21/24 MR#: [id number] Acct: [id number] Name: PATTY ALVAREZ Rep #: [id number] : 1995 Provider: ARAVIND Hernandez ams Age/Sex: 28/F [place] [facility]: Signed Intake Vital Signs 07/01/24 13:27 07/21/24 09:52 Height 5 ft 3 in 5 ft 3 in Weight: 270 lb 4 oz BMI 47.8 BP 122/79 H Intake Visit Reasons: spotting in early Chief Complaint: Spotting and cramping in early 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 Equipment Required: No Is patient in pain?: Yes [...] 2 current occupational status: employed 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 current occupational exposures/hazards: No [...] times per week duration: < 15 minutes/day karo/evangelical: None seatbelt use: always do you feel [...] full term 6lb 1oz Female spinal Wo [facility] Amee Schaffer 05/10/18 Stefania 38 live - full term 6lbs 5oz Female spin al [facility] Amee Schaffer 10/15/20 10 spontaneous Delivery Date: 05/10/18 Last Updated by: Laine Harden Twins; Breech/Breech Delivery Date: 05/10/18 Last Updated by: Laine Harden Twins; Breech/Breech Delivery Date: 10/15/20 Last Updated by: Hannah Mercado RN D [facility] ROS Const Constitutional: Reports system reviewed and [...] to inspec (more content not included)... Normal [facility] Recruiting Administrator Office Visit Reporton 06-08-2024 Recruiting Administrator Office Visit Report [facility] [address], [address] [place] [address] OFFICE VISIT Date of Service: 06/08/24 MR#: [id number] Acct: [id number] Name: PATTY ALVAREZ Rep #: [id number] : 1995 Provider: GAVIN Armijo Age/Sex: 28/F [place] [facility] Status: Signed Intake Vital Signs 06/03/23 14:43 06/08/24 08:58 06/08/24 08:58 Height 5 ft 3 in 5 ft 3 in 5 ft 3 in Weight: 265 lb BMI 46.9 BP 127/81 H Intake Visit Reasons: Annual ([employer]ISHER) 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 History 2 Elective abortions Hx Para 2 Spontaneous abortions Hx # Term Pregnancies 2 Ectopic pregnancies Hx # Pregnancies Multiple births 1 # of living children 2 Past Pregnancies Del. Date Name GA/Weeks Outcome Route Bth Weight Gen Labor Lgth Anesthesia Del Locatn Provider FOB 05/10/18 Andreina 38 live - full term 6lb 1oz Female spinal Wo [facility] Amee Schaffer 05/10/18 Stefania 38 live - full term 6lbs 5oz Female spin al [facility] Manuel Delivery Date: 05/10/18 Last Updated by: [...] the breast (more content not included)... Normal [facility] PREG SERUM QUANTon 4 HCG QUANTITATIVE <1 Normal 0 - 6 [facility] Comment on above: Result Comment: Refe yi [...] 3RD TRIMESTER 1000-50,000 Performed By: #### 2 [id number] #### [facility],[address] [place] [address] Chlamydia trachomatis rRNA d etection by probe and target amplification methodOrdered By: Bessie Mansfield on 06-03-2023 C. trachomatis rRNA CUCO+probe Ql (Unsp spec) Negative Negative [facility] Gram stain for investigation of transfusion reactionOrdered By: Bessie Mansfield on 06-03-2023 Microscopic observation Gram stain Nom (Unsp spec) [facility] Laboratory - Microbiology an d Antimicrobial susceptibilityOrdered By: Bessie Mansfield on 06-03-2023 N. gonorrhoeae DNA CUCO+probe Ql (Unsp spec) Negative Negative [facility] Comment on above: Performed at: [address] [id number] Director: Tracie Mackenzie MD, Phone: [phone] No Panel InformationOrdered By: Bessie Mansfield on 06-03-2023 Genital Culture Izzy spp [facility] No Panel Informationon 06-03 POC Bacterial Vaginitis (Rapid) Negative [facility] POC Trichomonas (Rapid) Negative [facility] Basophil percentageOrdered B y: Jenny So on 04-15-2023 Testosterone [Mass/Vol] 35 ng/dL 13-71 [facility] Comment on above: Verified by repeat analysis Free testosterone percentage Ordered By: Jenny So on 04-15-2023 Testosterone Free/Testosterone.total [Mass fraction] 2.03 % 0.50-2.80 [facility] Laboratory - Chemistry and C hemistry - challengeOrdered By: Jenny So on 04-15-2023 Free T4 [Mass/Vol] 1.21 ng/dL 0.76-1.46 [facility] No Panel InformationOrdered By: Jenny So on 04-15-2023 Miscellaneous Test See comment [facility] Comment on above: Sent directly to abbe ting facility per ordering physician. Dehydroepiandrosterone Sulfate 292.0 ug/dL 84.8-378.0 [facility] Comment on above: Performed at: - [facility] [address] [id number] Director: Herminio Nash PhD, Phone: [phone] at: - [facility] [address] [id number] Director: Chris Hernandez MD, Phone: [phone] Free Triiodothyronine (T3) pg/dL 3.2 pg/mL 2.18-3.98 [facility] Thyroid Stimulating Hormone (TSH) 1.14 uIU/mL 0.358-3.74 [facility] Serum or plasma 17-hydroxypr ogesterone measurement (mass/volume)Ordered By: Jenny So on 04-15-2023 17-Hydroxyprogesterone [Mass/Vol] 40 ng/dL . [facility] Comment on above: Adult Female Follicu lar 15 - 70 Luteal 35 - 290 Serum or plasma calcitriol m easurement (mass/volume)Ordered By: Jenny So on 04-15-2023 1,25-dihydroxyvitamin D3 [Mass/Vol] 46.0 pg/mL 24.8-81.5 [facility] Comment on above: Performed at: [facility] [address] [id number] Director: Chris Hernandez MD, Phone: [phone] Serum or plasma testosterone free measurement (mass/volume)Ordered By: Jenny So on 04-15-2023 Testosterone Free [Mass/Vol] 0.71 ng/dL 0.10-0.85 [facility] Whole blood hemoglobin A1c/t otal hemoglobin ratio (mass fraction)Ordered By: Jenyn So on 04-15-2023 HbA1c (Bld) [Mass fraction] 4.7 % 3.8-5.6 [facility] Comment on above: Normal < 5.7 % Predi abetic 5.7 - 6.4 % Diabetic >or= 6.5 % Please note range changes. Cervical or vagninal specime n microscopic examination by cytology stain (reported asOrdered By: Jenny So on 03-25-2023 Cytology report Cyto stain Doc (Cvx/Vag) Comment . [facility] Comment on above: The Pap smear is [...] rRNA CUCO+probe Ql (Unsp spec) Negative Negative [facility] Laboratory - CytologyOrdered By: Jenny So on 03-25-2023 Brim Stiffener Cyto stain Nom (Cvx/Vag) [ID] Comment . [facility] Comment on above: Porsha Valentine, Lecturer Of Portuguese (ASCP) Laboratory - Microbiology an d Antimicrobial susceptibilityOrdered By: Jenny So on 03-25-2023 N. gonorrhoeae DNA CUCO+probe Ql (Unsp spec) Negative Negative [facility] Comment on above: Performed at: =G - [facility] [address] [id number] Director: Tracie Mackenzie MD, Phone: [phone] Laboratory - Miscellaneous t estsOrdered By: Jenny So on 03-25-2023 Service comment (Unsp spec) [Interp] Comment . [facility] Comment on above: This liquid based Th inPrep(R) pap test was screened withthe use of an image guided system. Service comment (Unsp spec) [Interp] . . [facility] No Panel InformationOrdered By: Jenny So on 03-25-2023 Human Papillomavirus Screen Comment . [facility] Comment on above: The HPV DNA reflex c riteria were not met with this specimenresult therefore, no HPV testing was performed.Performed at: [facility] - [facility] [address] [id number] Director: Tracie Mackenzie MD, Phone: [phone] Pathology report final diagnosis Narrative Comment . [facility] Comment on above: NEGATIVE FOR INTRAEP ITHELIAL LESION OR MALIGNANCY. Varicella Zoster IgGon 03-25 V. zoster IgG, Qual Positive Abnormal Negative [facility] Comment on above: Performed By: #### V ZVG2 #### [facility] Routine Lab [address], [place] [id number] Varicella Zoster IgG 269.7 Index Value Normal [facility] Comment on above: Performed By: #### V ZVG2 #### [facility] Routine Lab [address], [place] [id number] Laboratory - Chemistry and C hemistry - challengeon 11-21-2020 Bilirubin Ql (U) Negative Normal [employer].; [employer] Ketones Ql (U) Negative Normal [employer].; [employer]. pH (U) 5.5 [pH] Normal [employer].; [employer]. Specific gravity (U) [Rel density] >=1.030 Normal [employer].; [employer]. Urobilinogen Qn (U) 0.2 e.u./dL Normal [facility].; [employer]. Laboratory - Hematology and Cell countson 11-21-2020 Hemoglobin Ql (U) small Abnormal [employer].; [employer]. Laboratory - Specimen inform ationon 11-21-2020 Appearance (U) clear Normal [place] [employer].; [employer]. Color (U) dark Yellow Normal [employer].; [employer] Laboratory - Urinalysison Glucose Test strip (U) [Mass/Vol] Negative Normal [employer].; [employer]. Leukocyte esterase Test strip Ql (U) trace Normal [employer].; [employer]. Nitrite Ql (U) Negative Normal [employer].; [employer] Protein Ql (U) Negative Normal [place] [employer].; [employer] Laboratory - Chemistry and C hemistry - challengeon 2018 Albumin [Mass/Vol] 4.2 g/dL Normal 3.6 - 5.1 g/dL [facility].; [facility]. Albumin/Globulin [Mass ratio] 1.5 {ratio} Normal 1.0 - 2.5 [facility]; [facility] ALP [Catalytic activity/Vol] 112 U/L Normal 33 - 115 U/L [facility].; [facility] ALT [Catalytic activity/Vol] 28 U/L Normal 6 - 29 U/L [facility].; [facility] AST [Catalytic activity/Vol] 17 U/L Normal 10 - 30 U/L [facility]; [facility], [facility] Bilirubin [Mass/Vol] 0.3 mg/dL Normal 0.2 - 1 .2 mg/dL [facility]; [facility], [facility] Calcium [Mass/Vol] 9.3 mg/dL Normal 8.6 - 10. 2 mg/dL [facility]; [facility] Chloride [Moles/Vol] 104 mmol/L Normal 98 - 11 0 mmol/L [facility]; [facility], [facility] CO2 [Moles/Vol] 25 mmol/L Normal 20 - 32 mmol/L [facility]; [facility] Creatinine [Mass/Vol] 0.59 mg/dL Normal 0.50 - 1.10 mg/dL [facility].; [facility], [facility] Free T3 [Mass/Vol] 3.8 pg/mL Normal 2.3 - 4.2 pg/mL [facility].; [facility], [facility] Free T4 [Mass/Vol] 0.9 ng/dL Normal 0.8 - 1.8 ng/dL [facility].; [facility], [facility]. GFR/1.73 sq M.predicted among blacks MDRD (S/P/Bld) [Vol rate/Area] 152 {ML/MIN/1.73M2} Normal [facility].; [facility], [facility] GFR/1.73 sq M.predicted MDRD (S/P/Bld) [Vol rate/Area] 131 {ML/MIN/1.73M2} Normal [facility]; [facility], [facility] Globulin (S) [Mass/Vol] 2.9 g/dL Normal 1.9 - 3.7 g/ dL [facility]; [facility], [facility] Glucose [Mass/Vol] 102 mg/dL Abnormal 65 - 99 mg/dL [facility], [facility] Potassium [Moles/Vol] 3.7 mmol/L Normal 3.5 - 5.3 mmol/L [facility]; [facility], [facility] Protein [Mass/Vol] 7.1 g/dL Normal 6.1 - 8.1 g/dL [facility]; [facility], [facility] Sodium [Moles/Vol] 138 mmol/L Normal 135 - 146 mmol/L [facility]; [facility], [facility] TSH Qn 1.38 m[IU]/L Normal 0.40 - 4.50 {mIU/L} [facility]; [facility], [facility] Urea nitrogen [Mass/Vol] 15 mg/dL Normal 7 - 25 mg/d L [facility]; [facility], [facility] Urea nitrogen/Creatinine [Mass ratio] 25.4 mg/mg Abnormal 6 - 22 [facility]; [facility], [facility] Laboratory - Hematology and Cell countson 2018 Basophils (Bld) [#/Vol] 30 {Cells}/uL Normal 0 - 200 {Cells}/uL [facility]; [facility], [facility] Basophils/100 WBC (Bld) 0.3 % Normal 0 - 1 % H [facility]; [facility], [facility] Eosinophils (Bld) [#/Vol] 210 {Cells}/uL Normal 15 - 500 {Cells}/uL [facility].; [facility], [facility] Eosinophils/100 WBC (Bld) 2.1 % Normal 0 - 4 % [facility]; [facility], [facility] Erythrocyte distribution width (RBC) [Ratio] 14.7 % Normal 11.0 - 15.0 % [facility]; [facility] HbA1c (Bld) [Mass fraction] 5.3 % Normal 0 - 5.6 % [facility].; [facility], [facility] Hematocrit (Bld) [Volume fraction] 41.1 % Normal 35.0 - 45.0 % [facility], [facility].; [facility], [facility] Hemoglobin (Bld) [Mass/Vol] 13.6 g/dL Normal 11.7 - 15.5 g/dL [facility].; [facility], [facility] Lymphocytes (Bld) [#/Vol] 2600 {Cells}/uL Normal 850 - 3900 {Cells}/uL [facility].; [facility], [facility]. Lymphocytes/100 WBC (Bld) 26.5 % Normal 12 - 47 % [facility].; [facility], [facility]. MCH (RBC) [Entitic mass] 28.7 pg Normal 27.0 - 33.0 PG [facility].; [facility], [facility]. MCHC (RBC) [Mass/Vol] 33.1 g/dL Normal 32.0 - 36.0 g/dL [facility].; [place] [employer] [facility], [facility]. MCV (RBC) [Entitic vol] 86.7 fL Normal 80.0 - 100.0 fL [facility].; [facility], [facility]. Monocytes (Bld) [#/Vol] 770 {Cells}/uL Normal 20 0 - 950 {Cells}/uL [facility].; [facility], [facility]. Monocytes/100 WBC (Bld) 7.8 % Normal 4 - 12 % [facility].; [facility], [facility]. Neutrophils (Bld) [#/Vol] 6210 {Cells}/uL Normal 1500 - 7800 {Cells}/uL [facility].; [facility] [employer], [facility]. Neutrophils/100 WBC (Bld) 63.3 % Normal 40 - 75 % [facility], [facility].; [place] [employer] [facility], [facility]. Platelet mean volume (Bld) [Entitic vol] 11.9 fL Normal 7.5 - 12.5 fL [facility].; [facility], [facility]. Platelets (Bld) [#/Vol] 274 10*3/uL Normal 140 - 400 10*3/uL [facility].; [employer] [facility]. RBC (Bld) [#/Vol] 4.74 10*6/uL Normal 3.80 - 5.1 0 10*6/uL [facility].; [employer] WBC (Bld) [#/Vol] 9.8 10*3/uL Normal 3.8 - 10.8 10*3/uL [employer].; [employer]. Final Surgical Pathology Rep luis 10-20-2018 Final Surgical Pathology Report . Pathology Reports Accession: Collected Date/Time: Received Date/Time: Pathologist: [id number] 10/15/2018 08:12 EDT 10/18/2018 08:12 EDT MD JAYLENE ABREU Final Surgical Pathology Report DIAGNOSIS: GALLBLADDER, CHOLECYSTECTOMY - - CHOLELITHIASIS. - CHRONIC CHOLECYSTITIS. COMMENT: [facility] A# [id number] CLINICAL INFORMATION: BILIARY COLIC SPECIMEN: A GALLBLADDER [...] thickness. RS -1 Dictated by Germaine GILES ([facility]) MICROSCOPIC DESCRIPTION: Slides reviewed. Electronically Signed by Pathology Report verified by [facility] Electronically signed by JAYLENE ABREU MD Sign out Date: 10/20/2018 08:43 Performing Lab: [facility], [address] [place] [address] ([place]) Comment on above: Performed By: #### S PFR #### [place] [id number] Progress Noteon 04-14-2018 Federal Mediation Commissioner Authentication Interface Message Text Patty Alvarez is here for consultation at the request of Louise Moon PA-C for: Fluid In Kidney (Entry Manager/Fetus A dialated kidney) History of Presenting Problem: Due 05/24 at [place]. Baby A with dilated kidney and ureter. [...] MG tablet Take by mouth daily Vit w/Kr-Rweekhpgi-BU (PNV PO) Take 1 Tab by mouth [...] questions Wander Pollack MD April 14, 2018 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 Consent to share information with [facility] team, OB and cab driver signed. Pt plans to deliver at [place] with Dr. Schaffer. Flare Man is [place]. Female fetus- names are Andreina and Stefania [...] spent counseling and coordinating care. Normal [facility] Federal Mediation Commissioner Authentication Interface Message Text Patient was seen by [facility] due to unilateral UTDA2-3 (pyelectasis and hydroureter). The total patient time of the visit was 15 minutes, of which greater than 50% of the time was spent counseling and coordinating care. Normal [facility] Progress Noteon 01-11-2018 Federal Mediation Commissioner Authentication Interface Message Text [facility] MATERNAL- MEDICINE CONSULT Referring/Requestin eliza Provider: Amee [...] MEDS: Current Outpatient Prescriptions Medication Sig Vit w/Ur-Svrxoxhfp-VE (PNV PO) Take 1 Tab by mouth [...] was spent counseling and coordinating care. Sharan eJffrey DO Normal [facility] Laboratory - Chemistry and C hemistry - challengeon 06-24-2017 Bilirubin Ql (U) small Abnormal [facility].; [employer] [facility], [employer]. Ketones Ql (U) Negative Normal [facility], [facility].; [employer] [facility], [facility] pH (U) 5.5 [pH] Normal [facility], [facility].; [employer] [facility], [facility] Specific gravity (U) [Rel density] 1.030 Abnormal [facility], [facility].; [employer] [facility], [facility] Urobilinogen Qn (U) 8 mg/dL Abnormal [facility], [facility].; [employer] [facility] Laboratory - Hematology and Cell countson 06-24-2017 Hemoglobin Ql (U) Negative Normal [facility], [facility].; [employer] [facility], [employer]. Laboratory - Microbiology an d Antimicrobial susceptibilityon 06-24-2017 Bacteria identified Cx Nom (U) Normal [facility], [facility].; [employer], [employer]. Laboratory - Specimen inform ationon 06-24-2017 Appearance (U) cloudy Abnormal [facility], [facility].; [employer]. Color (U) yellow Normal [facility]Ill[facility]; [place] [employer] [facility] Specimen source Nom (Unsp spec) URINE-CLEAN CATCH Normal [facility]Ill[facility]; [place] [employer] [facility]. Laboratory - Urinalysison Glucose Test strip (U) [Mass/Vol] Negative Normal [facility].; [place] [employer] [facility] HospitalB[facility] Leukocyte esterase Test strip Ql (U) Negative Normal [facility].; [place] [employer] Nitrite Ql (U) Negative Normal [facility].; [employer] Protein Ql (U) Negative Normal [place] [employer] [facility].; [employer]. Laboratory - Chemistry and C hemistry - challengeon 02-24-2017 Free T3 [Mass/Vol] 3.7 pg/mL Normal 3.0 - 4.7 pg/mL [facility]; [place] [employer] Free T4 [Mass/Vol] 1.2 ng/dL Normal 0.8 - 1.4 ng/dL [facility].; [employer]. TSH Qn 0.94 m[IU]/L Normal 0.40 - 4.50 {mIU/L} [place] [employer] [facility].; [employer]. Laboratory - Serology - non- microon 02-24-2017 TPO Ab Qn 1 [IU]/mL Normal [place] [employer] [facility].; [employer]. Laboratory - Microbiology an d Antimicrobial susceptibilityon 10-16-2016 S. pyogenes Ag EIA Ql (Throat) Negative Normal [facility].; [employer]. No Panel Informationon 10-16 MONOSPOT TEST (IN HOUSE) Negative Normal [place] [employer].; [employer]. Laboratory - Chemistry and C hemistry - challengeon 07-14-2016 Beta HCG ( test) Ql (U) Negative Normal [place] [employer] [facility].; [employer]. Laboratory - Microbiology an d Antimicrobial susceptibilityon 07-14-2016 C. trachomatis rRNA CUCO+probe Ql (Unsp spec) Not detected Normal [place] [employer] [facility]; [employer]. N. gonorrhoeae rRNA CUCO+probe Ql (Unsp spec) Not detected Normal [facility]; [employer] Laboratory - Chemistry and C hemistry - challengeon 04-09-2016 HCG.beta subunit Qn m[IU]/mL Normal [facility].; [employer] Laboratory - Chemistry and C hemistry - challengeon 04-02-2016 Beta HCG ( test) Ql (U) Negative Normal [facility]; [employer] Laboratory - Microbiology an d Antimicrobial susceptibilityon 04-02-2016 C. trachomatis rRNA CUCO+probe Ql (Unsp spec) Detected Abnormal [facility]; [employer] N. gonorrhoeae rRNA CUCO+probe Ql (Unsp spec) Not detected Normal [facility]; [employer]. No Panel Informationon 12-02 SKIN TEST INTRADERMAL TB Negative Normal [facility]; [employer] No Panel Informationon 11-25 SKIN TEST INTRADERMAL TB Negative Normal [facility] EmergencyIT'[employer]; [employer] Laboratory - Chemistry and C hemistry - challengeon 12-25-2011 Bilirubin Ql (U) Negative Normal [facility]; [employer] Ketones Ql (U) Negative Normal [place] [employer] [facility].; [employer]. Lipase [Catalytic activity/Vol] 14 U/L Normal 7 - 60 U/L [facility].; [employer] pH (U) 5.0 [pH] Normal 4.6 - 8.0 [place] [employer] [facility].; [employer]. Specific gravity (U) [Rel density] >=1.030 Normal 1.001 - 1.025 [place] [employer] [facility] HospitalB[facility]; [employer]. Laboratory - Hematology and Cell countson 12-25-2011 Basophils (Bld) [#/Vol] 50 {Cells}/uL Normal 0 - 200 {Cells}/uL [facility].; [employer]. Basophils/100 WBC (Bld) 0 % Normal 0 - 2 % [facility]; [employer]. Eosinophils (Bld) [#/Vol] 550 {Cells}/uL Abnormal 15 - 500 {Cells}/uL [facility].; [facility] Eosinophils/100 WBC (Bld) 5 % Normal 0 - 6 % [facility].; [facility], [facility] Erythrocyte distribution width (RBC) [Ratio] 12.8 % Normal 11.0 - 15.0 % [facility].; [facility], [facility] Hematocrit (Bld) [Volume fraction] 42.3 % Normal 34.0 - 46.0 % [facility].; [facility], [facility] Hemoglobin (Bld) [Mass/Vol] 14.3 g/dL Normal 11.5 - 15.3 g/dL [facility].; [facility], [facility] Hemoglobin Ql (U) Negative Normal [facility]; [facility], [facility] Lymphocytes (Bld) [#/Vol] 2780 {Cells}/uL Normal 1200 - 5200 {Cells}/uL [facility].; [place] [employer] [facility] Lymphocytes/100 WBC (Bld) 26 % Normal 20 - 60 % [facility].; [place] [employer] [facility], [facility] MCH (RBC) [Entitic mass] 32.0 pg Normal 25.0 - 35.0 PG [facility].; [place] [employer] [facility], [facility]. MCHC (RBC) [Mass/Vol] 33.7 g/dL Normal 31.0 - 36.0 g/dL [facility].; [place] [employer] [facility], [facility]. MCV (RBC) [Entitic vol] 94.8 fL Normal 78.0 - 98.0 fL [facility].; [place] [employer] [facility], [facility] Monocytes (Bld) [#/Vol] 970 {Cells}/uL Abnormal 20 0 - 900 {Cells}/uL [facility].; [facility], [facility]. Monocytes/100 WBC (Bld) 9 % Normal 0 - 10 % [facility].; [facility], [facility] Neutrophils (Bld) [#/Vol] 6250 {Cells}/uL Normal 1800 - 8000 {Cells}/uL [facility] [employer].; [employer], [employer]. Neutrophils/100 WBC (Bld) 59 % Normal 40 - 70 % [employer].; [employer] Platelets (Bld) [#/Vol] 239 10*3/uL Normal 140 - 400 10*3/uL [employer], [employer] RBC (Bld) [#/Vol] 4.46 10*6/uL Normal 3.80 - 5.1 0 10*6/uL [employer], [employer].; [employer], [employer] WBC (Bld) [#/Vol] 10.6 10*3/uL Normal 4.5 - 13.0 10*3/uL [employer], [employer], [employer]. Laboratory - Specimen inform ationon 12-25-2011 Appearance (U) Clear Normal [employer].; [employer] Color (U) Yellow Normal [employer].; [employer], [employer]. Laboratory - Urinalysison Glucose Test strip (U) [Mass/Vol] Negative Normal [employer] Leukocyte esterase Test strip Ql (U) Negative Normal [employer].; [employer] Nitrite Ql (U) Negative Normal [employer].; [employer] Protein Ql (U) Negative Normal [employer].; [employer], [employer]. No Panel Informationon 12-24 UA - UROBILINOGEN 0.2 mg/dL Normal [employer].; [employer], [employer]. Vital Signs Date Time Vital Sign Value Performing Clinician Facility 01-25-2025 [id number] Body height 160.02 cm [employer] Work Phone: [facility] 01-25-2025 10:07-0400 Body mass index (BMI) [Ratio] 50.5 kg/m2 [employer] Work Phone: [facility] 01-25-2025 10:07-0400 Body weight 129.47 kg [employer] Work Phone: [facility] 01-25-2025 10:07-0400 Diastolic blood pressure 71 mm[Hg] Louise Gray PA-C Work Phone: [facility] 01-25-2025 10:07-0400 Systolic blood pressure 107 mm[Hg] Louise Gray PA-C Work Phone: [facility] 01-20-2025 14:26-0400 Body height 160.02 cm Louise Gray PA-C Work Phone: [facility] 01-20-2025 14:26-0400 Body mass index (BMI) [Ratio] 50.7 kg/m2 Louise Gray PA-C Work Phone: [facility] 01-20-2025 14:26-0400 Body weight 129.84 kg Louise Gray PA-C Work Phone: [facility] 01-20-2025 14:26-0400 Diastolic blood pressure 69 mm[Hg] Louise Gray PA-C Work Phone: [facility] 01-20-2025 14:26-0400 Systolic blood pressure 108 mm[Hg] Louise Gray PA-C Work Phone: [facility] 01-06-2025 13:53-0400 Body height 160.02 cm Louise Gray PA-C Work Phone: [facility] 01-06-2025 13:51-0400 Body mass index (BMI) [Ratio] 50.5 kg/m2 Louise Gray PA-C Work Phone: [facility] 01-06-2025 13:51-0400 Body weight 129.44 kg Louise Gray PA-C Work Phone: [facility] 01-06-2025 13:51-0400 Diastolic blood pressure 72 mm[Hg] Louise Gray PA-C Work Phone: [facility] 01-06-2025 13:51-0400 Systolic blood pressure 112 mm[Hg] Louise Gray PA-C Work Phone: [facility] 01-01-2025 09:37-0400 Body height 160.02 cm Louise [employer] PA-C Work Phone: [facility] 01-01-2025 09:37-0400 Body mass index (BMI) [Ratio] 50.3 kg/m2 Louise Gray PA-C Work Phone: [facility] 01-01-2025 09:37-0400 Body weight 129 kg Louise [employer] PA-C Work Phone: [facility] 01-01-2025 09:13-0400 Body temperature 98.1 [degF] Louise Gray PA-C Work Phone: [facility] 01-01-2025 09:13-0400 Diastolic blood pressure 69 mm[Hg] Louise Gray PA-C Work Phone: [facility] 01-01-2025 09:13-0400 Heart rate 97 /min Louise [employer] PA-C Work Phone: [facility] 01-01-2025 09:13-0400 Respiratory rate 18 /min Louise [employer] PA-C Work Phone: [facility] 01-01-2025 09:13-0400 Systolic blood pressure 133 mm[Hg] Louise Gray PA-C Work Phone: [facility] 12-21-2024 10:25-0400 Body height 160.02 cm Louise [employer] PA-C Work Phone: [facility] 12-21-2024 10:23-0400 Body mass index (BMI) [Ratio] 50.2 kg/m2 Louise Gray PA-C Work Phone: [facility] 12-21-2024 10:23-0400 Body weight 128.62 kg Louise [employer] PA-C Work Phone: [facility] 12-21-2024 10:23-0400 Diastolic blood pressure 70 mm[Hg] Louise [employer] PA-C Work Phone: [facility] 12-21-2024 10:23-0400 Systolic blood pressure 120 mm[Hg] Louise Gray PA-C Work Phone: [facility] 12-06-2024 15:34-0400 Body height 160.02 cm Louise [employer] PA-C Work Phone: [facility] 12-06-2024 15:34-0400 Body mass index (BMI) [Ratio] 49.8 kg/m2 Louise [employer] PA-C Work Phone: [facility] 12-06-2024 15:34-0400 Body weight 127.51 kg Louise [employer] PA-C Work Phone: [facility] 12-06-2024 15:34-0400 Diastolic blood pressure 72 mm[Hg] Louise Gray PA-C Work Phone: [facility] 12-06-2024 15:34-0400 Systolic blood pressure 126 mm[Hg] Louise Gray PA-C Work Phone: [facility] 11-15-2024 13:35-0400 Body height 160.02 cm Louise [employer] PA-C Work Phone: [facility] 11-15-2024 13:35-0400 Body mass index (BMI) [Ratio] 48.4 kg/m2 Louise [employer] PA-C Work Phone: [facility] 11-15-2024 13:35-0400 Body weight 124.05 kg Louise [employer] PA-C Work Phone: [facility] 11-15-2024 13:35-0400 Diastolic blood pressure 78 mm[Hg] Louise Gray PA-C Work Phone: [facility] 11-15-2024 13:35-0400 Systolic blood pressure 118 mm[Hg] Louise Gray PA-C Work Phone: [facility] 10-17-2024 15:36-0400 Body height 160.02 cm Oluise [employer] PA-C Work Phone: [facility] 10-17-2024 15:36-0400 Body mass index (BMI) [Ratio] 49.3 kg/m2 Louise Gray PA-C Work Phone: [facility] 10-17-2024 15:36-0400 Body weight 126.21 kg Louise Gray PA-C Work Phone: [facility] 10-17-2024 15:36-0400 Diastolic blood pressure 74 mm[Hg] Louise Gray PA-C Work Phone: [facility] 10-17-2024 15:36-0400 Systolic blood pressure 120 mm[Hg] Louise Gray PA-C Work Phone: [facility] 09-19-2024 14:11-0400 Body height 160.02 cm Louise Gray PA-C Work Phone: [facility] 09-19-2024 14:11-0400 Body mass index (BMI) [Ratio] 48.3 kg/m2 Louise Gray PA-C Work Phone: [facility] 09-19-2024 14:11-0400 Body weight 123.83 kg Louise Gray PA-C Work Phone: [facility] 09-19-2024 14:11-0400 Diastolic blood pressure 78 mm[Hg] Louise Gray PA-C Work Phone: [facility] 09-19-2024 14:11-0400 Systolic blood pressure 122 mm[Hg] Louise Gray PA-C Work Phone: [facility] 08-24-2024 14:44-0400 Body mass index (BMI) [Ratio] 47.7 kg/m2 Louise Gray PA-C Work Phone: [facility] 08-24-2024 14:44-0400 Body weight 122.18 kg Louise [employer] PA-C Work Phone: [facility] 08-24-2024 14:44-0400 Diastolic blood pressure 84 mm[Hg] Louise Gray PA-C Work Phone: [facility] 08-24-2024 14:44-0400 Systolic blood pressure 125 mm[Hg] Louise Gray PA-C Work Phone: [facility] 08-04-2024 14:29-0400 Body height 160.02 cm Louise Gray PA-C Work Phone: [facility] 08-04-2024 14:29-0400 Body mass index (BMI) [Ratio] 47.9 kg/m2 Louise Gray PA-C Work Phone: [facility] 08-04-2024 14:29-0400 Body weight 122.64 kg Louise Gray PA-C Work Phone: [facility] 07-29-2024 14:29-0400 Body height 160.02 cm Louise [employer] PA-C Work Phone: [facility] 07-29-2024 14:25-0400 Body mass index (BMI) [Ratio] 47.7 kg/m2 Louise Gray PA-C Work Phone: [facility] 07-29-2024 14:25-0400 Body weight 122.12 kg Louise Gray PA-C Work Phone: [facility] 07-29-2024 14:25-0400 Diastolic blood pressure 81 mm[Hg] Louise Gray PA-C Work Phone: [facility] 07-29-2024 14:25-0400 Systolic blood pressure 125 mm[Hg] Louise Gray PA-C Work Phone: [facility] 07-21-2024 09:52-0400 Body mass index (BMI) [Ratio] 47.8 kg/m2 Path PA-C Work Phone: [facility] 07-21-2024 09:52-0400 Body weight 122.58 kg Louise [employer] PA-C Work Phone: [facility] 07-21-2024 09:52-0400 Diastolic blood pressure 79 mm[Hg] Louise [employer] PA-C Work Phone: [facility] 07-21-2024 09:52-0400 Systolic blood pressure 122 mm[Hg] Louise [employer] PA-C Work Phone: [facility] 06-08-2024 08:58-0500 Body mass index (BMI) [Ratio] 46.9 kg/m2 Louise [employer] PA-C Work Phone: [facility] 06-08-2024 08:58-0500 Body weight 120.2 kg Louise [employer] PA-C Work Phone: [facility] 06-08-2024 08:58-0500 Diastolic blood pressure 81 mm[Hg] Louise [employer] PA-C Work Phone: [facility] 06-08-2024 08:58-0500 Systolic blood pressure 127 mm[Hg] Louise [employer] PA-C Work Phone: [facility] 04-27-2024 09:50-0500 Body height 160.02 cm Ren Wright RN [facility].; [facility]. 04-27-2024 09:50-0500 Body mass index (BMI) [Ratio] 44.46 kg/m2 Ren Wright RN [facility].; [facility]. 04-27-2024 09:50-0500 Body surface area Derived from formula 2.13 m2 Ren Wright RN [facility].; [facility]. 04-27-2024 09:50-0500 Body weight 113.85 kg Ren Wright RN [employer] 04-27-2024 09:50-0500 Diastolic blood pressure 76 mm[Hg] Ren Wright RN [employer].; [employer]. Comment on above: Patient Position: Sitting; Cuff Location : Left Arm; Cuff Size: Large 04-27-2024 09:50-0500 Heart rate 86 /min Ren Wright RN [employer].; [employer]. Comment on above: Pattern: Regular 04-27-2024 09:50-0500 Systolic blood pressure 115 mm[Hg] Ren Wright RN [employer].; [employer]. Comment on above: Patient Position: Sitting; Cuff Location : Left Arm; Cuff Size: Large 12-22-2023 11:02-0400 Body height 160.02 cm Ren Wright RN [employer].; [employer] 12-22-2023 11:02-0400 Body mass index (BMI) [Ratio] 46.23 kg/m2 Ren Wright RN [employer].; [employer] 12-22-2023 11:02-0400 Body surface area Derived from formula 2.17 m2 Ren Wright RN [employer].; [employer]. 12-22-2023 11:02-0400 Body weight 118.39 kg Ren Wright RN [employer].; [employer]. 12-22-2023 11:02-0400 Diastolic blood pressure 81 mm[Hg] Ren Wright RN [employer].; [employer]. Comment on above: Patient Position: Sitting; Cuff Location : Left Arm; Cuff Size: Standard 12-22-2023 11:02-0400 Heart rate 81 /min Ren Wright RN [employer].; [employer]. Comment on above: Pattern: Regular 12-22-2023 11:02-0400 Systolic blood pressure 118 mm[Hg] Ren Wright RN [employer].; [employer]. Comment on above: Patient Position: Sitting; Cuff Location : Left Arm; Cuff Size: Standard 08-24-2023 10:03-0400 Body height 160.02 cm Aracelis Dueñas LPN [facility].; [facility] 08-24-2023 10:03-0400 Body mass index (BMI) [Ratio] 44.29 kg/m2 Aracelis Dueñas LPN [facility].; [facility] 08-24-2023 10:03-0400 Body surface area Derived from formula 2.13 m2 Aracelis Dueñas LPN [facility].; [facility] 08-24-2023 10:030400 Body weight 113.4 kg Aracelis Dueñas LPN [facility].; [facility] 08-24-2023 10:03-0400 Diastolic blood pressure 74 mm[Hg] Aracelis Dueñas LPN [facility].; [facility]. Comment on above: Patient Position: Sitting; Cuff Location : Left Arm; Cuff Size: Standard 08-24-2023 10:03-0400 Heart rate 80 /min Aracelis Dueñas LPN [facility].; [facility]. Comment on above: Pattern: Regular 08-24-2023 10:03-0400 Systolic blood pressure 105 mm[Hg] Aracelis Dueñas LPN [facility].; [facility]. Comment on above: Patient Position: Sitting; Cuff Location : Left Arm; Cuff Size: Standard 06-03-2023 14:43-0500 Body height 160.02 cm PA-C [employer] Work Phone: [facility] 06-03-2023 14:43-0500 Body mass index (BMI) [Ratio] 48.2 kg/m2 PA-C [employer] PA Work Phone: [facility] 06-03-2023 14:43-0500 Body weight 123.43 kg PA-C [employer] PA Work Phone: [facility] 06-03-2023 14:43-0500 Diastolic blood pressure 82 mm[Hg] PA-C Path PA Work Phone: [facility] 06-03-2023 14:43-0500 Systolic blood pressure 132 mm[Hg] PA-C Path PA Work Phone: [facility] 04-27-2023 10:53-0500 Body height 160.02 cm Mary Haji [facility] 04-27-2023 10:53-0500 Body mass index (BMI) [Ratio] 50 kg/m2 Mary Haji MA [facility].; [facility]. 04-27-2023 10:53-0500 Body surface area Derived from formula 2.24 m2 Mary Haji MA [facility].; [facility]. 04-27-2023 10:53-0500 Body weight 128.03 kg Mary Haji MA [facility].; [facility]. 04-27-2023 10:53-0500 Diastolic blood pressure 84 mm[Hg] Mary Haji [facility].; [facility] Comment on above: Patient Position: Sitting; Cuff Location : Left Arm; Cuff Size: Standard 04-27-2023 10:53-0500 Heart rate 88 /min Mary Haji [facility].; [employer] [facility]. Comment on above: Pattern: Regular 04-27-2023 10:53-0500 Systolic blood pressure 127 mm[Hg] Mary Haji [facility].; [employer] [facility]. Comment on above: Patient Position: Sitting; Cuff Location : Left Arm; Cuff Size: Standard 03-25-2023 09:39-0500 Body height 160.02 cm PA-C [employer] PA Work Phone: [facility] 03-25-2023 09:37-0500 Body mass index (BMI) [Ratio] 49.6 kg/m2 PA-C [employer] PA Work Phone: [facility] 03-25-2023 09:37-0500 Body weight 127 kg PA-C Louise Gray PA Work Phone: [facility] 03-25-2023 09:37-0500 Diastolic blood pressure 84 mm[Hg] PA-C Louise Hills PA Work Phone: [facility] 03-25-2023 09:37-0500 Systolic blood pressure 120 mm[Hg] [facility] Work [facility] 11-21-2020 13:59-0400 Body height 160.02 cm [facility].; [facility]. 11-21-2020 13:59-0400 Body mass index (BMI) [Ratio] 50.84 kg/m2 Veronica [facility].; [facility]. 11-21-2020 13:59-0400 Body surface area Derived from formula 2.25 m2 Veronica Abdul LPN [facility].; [facility]. 11-21-2020 13:59-0400 Body weight 130.18 kg Veronica [facility].; [facility]. 11-21-2020 13:59-0400 Diastolic blood pressure 75 mm[Hg] Veronica Abdul LPN [facility].; [facility]. Comment on above: Patient Position: Sitting; Cuff Location : Left Arm; Cuff Size: Standard 11-21-2020 13:59-0400 Heart rate 102 /min Veronica Abdul LPN [facility].; [employer] [facility]. Comment on above: Pattern: Regular 11-21-2020 13:59-0400 Systolic blood pressure 112 mm[Hg] Veronica [facility].; [employer] [facility], [facility]. Comment on above: Patient Position: Sitting; Cuff Location : Left Arm; Cuff Size: Standard 08-09-2019 14:22-0400 Body height 160.02 cm Jerry Newman LPN [facility].; [facility]. 08-09-2019 14:22-0400 Body mass index (BMI) [Ratio] 52.26 kg/m2 Neilee L Vess [employer] [facility], [facility].; [employer], [facility]. 08-09-2019 14:22-0400 Body surface area Derived from formula 2.28 m2 Neilee L Vess [employer] [place] [employer] [facility], [facility].; [employer] 08-09-2019 14:22-0400 Body temperature 99.4 [degF] Neilee L Vess [employer] [place] [employer] [facility], [facility].; [employer], [employer]. Comment on above: Method: Tympanic 08-09-2019 14:22-0400 Body weight 133.81 kg Neilee L Vess [employer] [place] [employer] [facility], [facility].; [employer], [facility]. 08-09-2019 14:22-0400 Diastolic blood pressure 76 mm[Hg] Neilee L Vess [employer] [place] [employer] [facility], [facility].; [employer], [employer]. Comment on above: Patient Position: Sitting; Cuff Location : Left Arm; Cuff Size: Standard 08-09-2019 14:22-0400 Heart rate 97 /min Neilee L Vess [employer] [place] [employer] [facility], [facility].; [employer], [employer]. Comment on above: Pattern: Regular 08-09-2019 14:22-0400 Systolic blood pressure 131 mm[Hg] Neilee L Vess [employer] [place] [employer] [facility], [facility].; [employer], [employer]. Comment on above: Patient Position: Sitting; Cuff Location : Left Arm; Cuff Size: Standard 08-01-2019 11:25-0400 Body height 160.02 cm Louise Moon PA-C Work Phone: [facility].; [employer] [facility]. 06-23-2019 08:18-0500 Body height 160.02 cm Neilee L Vess [employer] [place] [employer], [facility].; [employer]. 06-23-2019 08:18-0500 Body mass index (BMI) [Ratio] 51.72 kg/m2 Neilee L Vess [employer], [employer]. 06-23-2019 08:18-0500 Body surface area Derived from formula 2.27 m2 Neilee L Vess [employer] [facility].; [employer] [facility]. 06-23-2019 08:18-0500 Body temperature 99.7 [degF] Neilee L Vess [employer] [facility].; [employer]. Comment on above: Method: Tympanic 06-23-2019 08:18-0500 Body weight 132.45 kg Neilee L Vess [employer] [facility].; [employer]. 06-23-2019 08:18-0500 Diastolic blood pressure 74 mm[Hg] Neilee L Vess [employer] [facility].; [employer]. Comment on above: Patient Position: Sitting; Cuff Location : Left Arm; Cuff Size: Standard 06-23-2019 08:18-0500 Heart rate 99 /min Neilee L Vess [employer] [facility].; [employer]. Comment on above: Pattern: Regular 06-23-2019 08:18-0500 Inhaled oxygen concentration 20 % Neilee L Vess [employer] [facility].; [employer]. Comment on above: Room air 06-23-2019 08:18-0500 Inhaled oxygen concentration 21 % Neilee L Vess [employer] [facility].; [employer]. Comment on above: Room air 06-23-2019 08:18-0500 SaO2% (BldA) [Mass fraction] 98 % Neilee L Vess [employer] [facility].; [employer]. 06-23-2019 08:18-0500 Systolic blood pressure 135 mm[Hg] Neilee L Vess [employer] [place] [employer] [facility].; [employer]. Comment on above: Patient Position: Sitting; Cuff Location : Left Arm; Cuff Size: Standard 05-23-2019 14:05-0500 Body height 160.02 cm Neilee L Vess [employer] [place] [employer] [facility], [facility].; [employer]. 05-23-2019 14:05-0500 Body mass index (BMI) [Ratio] 51.72 kg/m2 Neilee L Vess [employer] [place] [employer] [facility].; [employer]. 05-23-2019 14:05-0500 Body surface area Derived from formula 2.27 m2 Neilee L Vess [employer], [employer]. 05-23-2019 14:05-0500 Body weight 132.45 kg Neilee L Vess [employer], [employer]. 05-23-2019 14:05-0500 Diastolic blood pressure 76 mm[Hg] Neilee L Vess [employer]. Comment on above: Patient Position: Sitting; Cuff Location : Right Arm; Cuff Size: Standard 05-23-2019 14:05-0500 Heart rate 96 /min Neilee L Vess [employer]. Comment on above: Pattern: Regular 05-23-2019 14:05-0500 Systolic blood pressure 124 mm[Hg] Neilee L Vess [employer], [employer]. Comment on above: Patient Position: Sitting; Cuff Location : Right Arm; Cuff Size: Standard 02-14-2019 08:50-0400 Body height 160.02 cm Neilee L Vess [employer], [employer]. 02-14-2019 08:50-0400 Body mass index (BMI) [Ratio] 50.66 kg/m2 Neilee L Vess [employer], [employer]. 02-14-2019 08:50-0400 Body surface area Derived from formula 2.25 m2 Neilee L Vess [employer] 02-14-2019 08:50-0400 Body weight 129.73 kg Neilee L Vess [employer], [employer].; [employer]. 02-14-2019 08:50-0400 Diastolic blood pressure 74 mm[Hg] Neilee L Vess [employer], [employer].; [employer]. Comment on above: Patient Position: Sitting; Cuff Location : Right Arm; Cuff Size: Standard 02-14-2019 08:50-0400 Heart rate 86 /min Neilee L Vess [employer], [employer].; [employer]. Comment on above: Pattern: Regular 02-14-2019 08:50-0400 Systolic blood pressure 125 mm[Hg] Neilee L Vess [employer]. Comment on above: Patient Position: Sitting; Cuff Location : Right Arm; Cuff Size: Standard 01-13-2019 08:14-0400 Body height 160.02 cm Neilee L Vess [employer] 01-13-2019 08:14-0400 Body mass index (BMI) [Ratio] 51.19 kg/m2 Neilee L Vess [employer] 01-13-2019 08:14-0400 Body surface area Derived from formula 2.26 m2 Neilee L Vess [employer].; [employer] 01-13-2019 08:14-0400 Body weight 131.09 kg Neilee L Vess [employer].; [employer] 01-13-2019 08:14-0400 Diastolic blood pressure 72 mm[Hg] Neilee L Vess [employer].; [employer]. Comment on above: Patient Position: Sitting; Cuff Location : Right Arm; Cuff Size: Standard 01-13-2019 08:14-0400 Heart rate 79 /min Neilee L Vess [employer].; [employer]. Comment on above: Pattern: Regular 01-13-2019 08:14-0400 Systolic blood pressure 115 mm[Hg] Neilee L Vess [employer].; [employer] Comment on above: Patient Position: Sitting; Cuff Location : Right Arm; Cuff Size: Standard 2018 14:54-0400 Body height 160.02 cm Brooke Heard RN [employer].; [employer] 2018 14:54-0400 Body mass index (BMI) [Ratio] 50.56 kg/m2 Brooke Heard RN [employer].; [employer] 2018 14:54-0400 Body surface area Derived from formula 2.25 m2 Brooke Heard RN [employer].; [employer]. 2018 14:54-0400 Body temperature 99.2 [degF] Brooke Heard RN [employer].; [employer]. Comment on above: Method: Tympanic 2018 14:54-0400 Body weight 129.46 kg Brooke Heard RN [employer].; [employer] 2018 14:54-0400 Diastolic blood pressure 83 mm[Hg] Brooke Heard RN [employer].; [employer]. Comment on above: Patient Position: Sitting; Cuff Location : Left Arm; Cuff Size: Standard 2018 14:54-0400 Heart rate 107 /min Brooke Heard RN [employer].; [employer]. Comment on above: Pattern: Regular 2018 14:54-0400 Systolic blood pressure 126 mm[Hg] Brooke Heard RN [employer].; [employer]. Comment on above: Patient Position: Sitting; Cuff Location : Left Arm; Cuff Size: Standard 09-02-2018 07:57-0400 Body height 160.02 cm Brooke Heard RN [employer].; [employer] 09-02-2018 07:57-0400 Body mass index (BMI) [Ratio] 48.2 kg/m2 Brooke Heard RN [employer].; [employer] 09-02-2018 07:57-0400 Body surface area Derived from formula 2.2 m2 Brooke Heard RN [employer].; [employer]. 09-02-2018 07:57-0400 Body temperature 99 [degF] Brooke Heard RN [employer].; [employer]. Comment on above: Method: Tympanic 09-02-2018 07:57-0400 Body weight 123.42 kg Brooke Heard RN [employer].; [employer]. 09-02-2018 07:57-0400 Diastolic blood pressure 84 mm[Hg] Brooke Heard RN [employer].; [employer] Comment on above: Patient Position: Sitting; Cuff Location : Left Arm; Cuff Size: Standard 09-02-2018 07:57-0400 Heart rate 89 /min Brooke Heard RN [employer].; [employer]. Comment on above: Pattern: Regular 09-02-2018 07:57-0400 Systolic blood pressure 125 mm[Hg] Brooke Heard RN [employer].; [employer]. Comment on above: Patient Position: Sitting; Cuff Location : Left Arm; Cuff Size: Standard 06-30-2018 11:25-0400 Body height 160.02 cm Brooke Heard RN [employer].; [employer] 06-30-2018 11:25-0400 Body mass index (BMI) [Ratio] 45.22 kg/m2 Brooke Heard RN [employer].; [employer] 06-30-2018 11:25-0400 Body surface area Derived from formula 2.15 m2 Brooke Heard RN [employer].; [employer] 06-30-2018 11:25-0400 Body temperature 99.5 [degF] Brooke Heard RN [employer]. Comment on above: Method: Tympanic 06-30-2018 11:250400 Body weight 115.8 kg Brooke Heard RN [employer].; [employer]. 06-30-2018 11:25-0400 Diastolic blood pressure 74 mm[Hg] Brooke Heard RN [employer]. Comment on above: Patient Position: Sitting; Cuff Location : Left Arm; Cuff Size: Standard 06-30-2018 11:25-0400 Heart rate 87 /min Brooke Heard RN [employer]. Comment on above: Pattern: Regular 06-30-2018 11:25-0400 Systolic blood pressure 125 mm[Hg] Brooke Heard RN [employer]. Comment on above: Patient Position: Sitting; Cuff Location : Left Arm; Cuff Size: Standard 08-04-2017 14:02-0400 Body height 160.02 cm Neilee L Vess [employer] 08-04-2017 14:02-0400 Body mass index (BMI) [Ratio] 44.29 kg/m2 Neilee L Vess [employer] 08-04-2017 14:020400 Body surface area Derived from formula 2.13 m2 Neilee L Vess [employer]. 08-04-2017 14:020400 Body weight 113.4 kg Neilee L Vess [employer], [employer] 08-04-2017 14:02-0400 Diastolic blood pressure 85 mm[Hg] Neilee L Vess [employer], [employer].; [employer]. Comment on above: Patient Position: Sitting; Cuff Location : Left Arm; Cuff Size: Standard 08-04-2017 14:02-0400 Heart rate 123 /min Asurintilee L Vess [employer], [employer].; [employer]. Comment on above: Pattern: Regular 08-04-2017 14:02-0400 Systolic blood pressure 140 mm[Hg] Neilee L Vess [employer]. Comment on above: Patient Position: Sitting; Cuff Location : Left Arm; Cuff Size: Standard 06-24-2017 15:33-0500 Body temperature 98.8 [degF] Brooke Heard RN [employer], [employer]. Comment on above: Method: Tympanic 06-24-2017 15:33-0500 Body weight 109.94 kg Brooke Heard RN [employer], [employer].; [employer]. 06-24-2017 15:33-0500 Diastolic blood pressure 93 mm[Hg] Brooke Heard RN [employer].; [employer]. Comment on above: Patient Position: Sitting; Cuff Location : Left Arm; Cuff Size: Standard 06-24-2017 15:33-0500 Heart rate 92 /min Brooke Heard RN [employer].; [employer]. Comment on above: Pattern: Regular 06-24-2017 15:33-0500 Systolic blood pressure 143 mm[Hg] Brooke Heard RN [employer].; [employer]. Comment on above: Patient Position: Sitting; Cuff Location : Left Arm; Cuff Size: Standard 06-18-2017 15:36-0500 Body height 160.02 cm Brooke Heard RN [employer].; [employer]. 06-18-2017 15:36-0500 Body mass index (BMI) [Ratio] 44.18 kg/m2 Brooke Heard RN [employer].; [employer]. 06-18-2017 15:36-0500 Body surface area Derived from formula 2.12 m2 Brooke Heard RN [employer].; [employer]. 06-18-2017 15:36-0500 Body temperature 98.6 [degF] Brooke Heard RN [employer]. Comment on above: Method: Tympanic 06-18-2017 15:36-0500 Body weight 113.13 kg Brooke Heard RN [employer].; [employer]. 06-18-2017 15:36-0500 Diastolic blood pressure 71 mm[Hg] Brooke Heard RN [employer].; [employer]. Comment on above: Patient Position: Sitting; Cuff Location : Left Arm; Cuff Size: Standard 06-18-2017 15:36-0500 Heart rate 75 /min Brooke Heard RN [employer]. Comment on above: Pattern: Regular 06-18-2017 15:36-0500 Systolic blood pressure 105 mm[Hg] Brooke Heard RN [employer]. Comment on above: Patient Position: Sitting; Cuff Location : Left Arm; Cuff Size: Standard 05-21-2017 15:29-0500 Body height 160.02 cm Brooke Heard RN [employer] 05-21-2017 15:29-0500 Body mass index (BMI) [Ratio] 44.62 kg/m2 Brooke Heard RN [employer].; [employer]. 05-21-2017 15:29-0500 Body surface area Derived from formula 2.13 m2 Brooke Heard RN [employer].; [employer]. 05-21-2017 15:29-0500 Body temperature 98.1 [degF] Brooke Heard RN [employer].; [employer]. Comment on above: Method: Tympanic 05-21-2017 15:29-0500 Body weight 114.26 kg Brooke Heard RN [employer].; [employer]. 05-21-2017 15:29-0500 Diastolic blood pressure 94 mm[Hg] Brooke Heard RN [employer].; [employer]. Comment on above: Patient Position: Sitting; Cuff Location : Left Arm; Cuff Size: Standard 05-21-2017 15:29-0500 Heart rate 69 /min Brooke Heard RN [employer].; [employer]. Comment on above: Pattern: Regular 05-21-2017 15:29-0500 Systolic blood pressure 136 mm[Hg] Brooke Heard RN [employer].; [employer]. Comment on above: Patient Position: Sitting; Cuff Location : Left Arm; Cuff Size: Standard 03-25-2017 14:35-0500 Body height 160.02 cm Brooke Heard RN [employer].; [employer]. 03-25-2017 14:35-0500 Body mass index (BMI) [Ratio] 43.31 kg/m2 Brooke Heard RN [employer].; [employer]. 03-25-2017 14:35-0500 Body surface area Derived from formula 2.11 m2 Brooke Heard RN [employer].; [employer]. 03-25-2017 14:35-0500 Body temperature 98.8 [degF] Brooke Heard RN [employer]. Comment on above: Method: Tympanic 03-25-2017 14:35-0500 Body weight 110.91 kg Brooke Heard RN [place] [employer] 03-25-2017 14:35-0500 Diastolic blood pressure 73 mm[Hg] Brooke Heard RN [place] [employer]. Comment on above: Patient Position: Sitting; Cuff Location : Left Arm; Cuff Size: Standard 03-25-2017 14:35-0500 Heart rate 91 /min Brooke Heard RN [employer], [employer]. Comment on above: Pattern: Regular 03-25-2017 14:35-0500 Systolic blood pressure 132 mm[Hg] Brooke Heard RN [place] [employer], [employer]. Comment on above: Patient Position: Sitting; Cuff Location : Left Arm; Cuff Size: Standard 02-24-2017 14:19-0500 Body height 160.02 cm Neilee L Vess [employer] 02-24-2017 14:190500 Body mass index (BMI) [Ratio] 43.93 kg/m2 Neilee L Vess [employer] 02-24-2017 14:190500 Body surface area Derived from formula 2.12 m2 Neilee L Vess [employer] 02-24-2017 14:19-0500 Body weight 112.49 kg Neilee L Vess [employer], [employer]. 02-24-2017 14:19-0500 Diastolic blood pressure 74 mm[Hg] Neilee L Vess [employer], [employer]. Comment on above: Patient Position: Sitting; Cuff Location : Right Arm; Cuff Size: Standard 02-24-2017 14:19-0500 Heart rate 127 /min Neilee L Vess [employer]. Comment on above: Pattern: Regular 02-24-2017 14:19-0500 Systolic blood pressure 133 mm[Hg] Jerry Newman LPN [employer]. Comment on above: Patient Position: Sitting; Cuff Location : Right Arm; Cuff Size: Standard 10-16-2016 14:54-0400 Body height 160.02 cm [employer] Uptain CNM Work Phone: [employer]; [employer] 10-16-2016 14:54-0400 Body mass index (BMI) [Percentile] Per age and sex 99 % Kumotain CNM Work Phone: [employer]; [employer]. 10-16-2016 14:54-0400 Body mass index (BMI) [Ratio] 42.51 kg/m2 [employer] CNM Work Phone: [employer]; [employer]. 10-16-2016 14:54-0400 Body surface area Derived from formula 2.09 m2 [employer] CNM Work Phone: [employer]; [employer]. 10-16-2016 14:54-0400 Body temperature 99.6 [degF] [employer] Uptain CNM Work Phone: [employer]; [employer]. Comment on above: Method: Tympanic 10-16-2016 14:54-0400 Body weight 108.86 kg [employer] CNM Work Phone: [employer]; [employer]. 10-16-2016 14:54-0400 Diastolic blood pressure 74 mm[Hg] [employer] CNM Work Phone: [employer]; [employer]. Comment on above: Patient Position: Sitting; Cuff Location : Right Arm; Cuff Size: Large 10-16-2016 14:54-0400 Heart rate 107 /min [employer] CNM Work Phone: [employer]; [employer]. Comment on above: Pattern: Regular 10-16-2016 14:54-0400 Inhaled oxygen concentration 20 % Crystal Uptain CNM Work Phone: [employer]; [employer]. Comment on above: Room air 10-16-2016 14:54-0400 Inhaled oxygen concentration 21 % Crystal Uptain CNM Work Phone: [employer].; [employer]. Comment on above: Room air 10-16-2016 14:54-0400 SaO2% (BldA) [Mass fraction] 99 % Crystal Uptain CNM Work Phone: [employer]; [employer]. 10-16-2016 14:54-0400 Systolic blood pressure 112 mm[Hg] Crystal Uptain CNM Work Phone: [employer]; [employer]. Comment on above: Patient Position: Sitting; Cuff Location : Right Arm; Cuff Size: Large 07-14-2016 11:06-0400 Body height 160.02 cm Brooke Heard RN [employer] 07-14-2016 11:06-0400 Body mass index (BMI) [Percentile] Per age and sex 99 % Brooke Heard RN [employer].; [employer]. 07-14-2016 11:06-0400 Body mass index (BMI) [Ratio] 42.74 kg/m2 Brooke Heard RN [employer].; [employer]. 07-14-2016 11:06-0400 Body surface area Derived from formula 2.09 m2 Brooke Heard RN [employer]. 07-14-2016 11:06-0400 Body temperature 99.4 [degF] Brooke Heard RN [employer].; [employer]. Comment on above: Method: Tympanic 07-14-2016 11:06-0400 Body weight 109.45 kg Brooke Heard RN [employer].; [employer] 07-14-2016 11:06-0400 Diastolic blood pressure 82 mm[Hg] Brooke Heard RN [employer].; [employer]. Comment on above: Patient Position: Sitting; Cuff Location : Left Arm; Cuff Size: Standard 07-14-2016 11:06-0400 Heart rate 106 /min Brooke Heard RN [employer].; [employer]. Comment on above: Pattern: Regular 07-14-2016 11:06-0400 Systolic blood pressure 151 mm[Hg] Brooke Heard RN [employer].; [employer]. Comment on above: Patient Position: Sitting; Cuff Location : Left Arm; Cuff Size: Standard 04-02-2016 15:04-0500 Body height 160.02 cm Brooke Heard RN [employer].; [employer]. 04-02-2016 15:04-0500 Body mass index (BMI) [Percentile] Per age and sex 99 % Brooke Heard RN [employer].; [employer]. 04-02-2016 15:04-0500 Body mass index (BMI) [Ratio] 43.58 kg/m2 Brooke Heard RN [employer].; [employer]. 04-02-2016 15:04-0500 Body surface area Derived from formula 2.11 m2 Brooke Heard RN [employer].; [employer]. 04-02-2016 15:04-0500 Body temperature 99.5 [degF] Brooke Heard RN [employer].; [employer]. Comment on above: Method: Tympanic 04-02-2016 15:04-0500 Body weight 111.59 kg Brooke Heard RN [employer]. 04-02-2016 15:04-0500 Diastolic blood pressure 86 mm[Hg] Brooke Heard RN [employer]. Comment on above: Patient Position: Sitting; Cuff Location : Left Arm; Cuff Size: Standard 04-02-2016 15:04-0500 Heart rate 103 /min Brooke Heard RN [facility].; Terry [employer] [facility]. Comment on above: Pattern: Regular 04-02-2016 15:04-0500 Systolic blood pressure 142 mm[Hg] Brooke Heard RN [facility].; Terry [employer] [facility]. Comment on above: Patient Position: Sitting; Cuff Location : Left Arm; Cuff Size: Standard 09-14-2015 14:33-0400 Body height 160.02 cm Margoth Nathan [employer] UN[employer] [facility].; [employer], [employer]. 09-14-2015 14:33-0400 Body mass index (BMI) [Percentile] Per age and sex 99 % Margoth Burtrum [facility], [facility].; Terry [employer] [facility], [employer]. 09-14-2015 14:33-0400 Body mass index (BMI) [Ratio] 44.64 kg/m2 [facility] Nathan [facility].; [place] [employer] [facility], [employer]. 09-14-2015 14:33-0400 Body surface area Derived from formula 2.13 m2 Margoth Nathan [employer] [facility].; [employer], [employer]. 09-14-2015 14:33-0400 Body temperature 97.4 [degF] Margoth Stuckey [facility].; [employer]. Comment on above: Method: Tympanic 09-14-2015 14:33-0400 Body weight 114.31 kg Margoth Nathan [employer] [facility].; [place] [employer] [facility], [employer]. 03-06-2015 14:15-0500 Body height 160.02 cm Margoth Stuckey [employer] [facility].; [employer]. 03-06-2015 14:15-0500 Body mass index (BMI) [Percentile] Per age and sex 99 % MargothYane Evans [employer] [facility].; [employer]. 03-06-2015 14:15-0500 Body mass index (BMI) [Ratio] 46.23 kg/m2 [facility] Nathan [employer] [facility].; [employer]. 03-06-2015 14:15-0500 Body surface area Derived from formula 2.17 m2 Zeinab Evans [facility], Inc.; [employer], [employer]. 03-06-2015 14:15-0500 Body temperature 99.2 [degF] Zeinab Evans [facility], Inc.; [employer]. Comment on above: Method: Tympanic 03-06-2015 14:15-0500 Body weight 118.39 kg Zeinab Evans [facility], Inc.; [employer]. 03-06-2015 14:15-0500 Diastolic blood pressure 80 mm[Hg] Zeinab Evans [facility], [employer].; [employer]. Comment on above: Patient Position: Sitting; Cuff Location : Left Arm; Cuff Size: Large 03-06-2015 14:15-0500 Heart rate 105 /min MargothYane Evans [facility], [employer].; [employer]. Comment on above: Pattern: Regular 03-06-2015 14:15-0500 Inhaled oxygen concentration 20 % MargothYane Evans [facility] [employer] [facility], Inc.; [employer]. Comment on above: Room air 03-06-2015 14:15-0500 Inhaled oxygen concentration 21 % MargothYane Evans [facility], Inc.; [employer]. Comment on above: Room air 03-06-2015 14:15-0500 SaO2% (BldA) [Mass fraction] 98 % MargothYane Evans [facility], Inc.; [employer]. 03-06-2015 14:15-0500 Systolic blood pressure 118 mm[Hg] Zeinab Evans [facility] [employer] [facility], [employer].; [employer]. Comment on above: Patient Position: Sitting; Cuff Location : Left Arm; Cuff Size: Large 10-05-2014 11:02-0400 Body height 160.02 cm Yolande Upton [facility] [employer] [facility], [employer].; [employer]. 10-05-2014 11:02-0400 Body mass index (BMI) [Percentile] Per age and sex 99 % Yolande Devon Mutersbaugh [employer] [facility], Inc.; Terry [employer] [facility], Inc[facility] 10-05-2014 11:02-0400 Body mass index (BMI) [Ratio] 44.64 kg/m2 Yolande K Mutersbaugh [employer] [facility], Inc.; Terry [employer] 10-05-2014 11:02-0400 Body surface area Derived from formula 2.13 m2 Yolande K Mutersbaugh [facility], Inc.; [employer] 10-05-2014 11:02-0400 Body weight 114.31 kg Yolande Devon Mutersbaugh [facility].; [employer], [facility]. 10-05-2014 11:02-0400 Diastolic blood pressure 89 mm[Hg] Yolande K Mutersbaugh [facility], Inc.; [employer], [employer]. Comment on above: Patient Position: Sitting; Cuff Location : Left Arm; Cuff Size: Standard 10-05-2014 11:02-0400 Heart rate 80 /min Yolande Devon Haydenbaugh [facility], Inc.; [employer] Comment on above: Pattern: Regular 10-05-2014 11:02-0400 Systolic blood pressure 137 mm[Hg] Yolande Devon Hansonersbaugh [employer] [facility], Inc.; [employer] Comment on above: Patient Position: Sitting; Cuff Location : Left Arm; Cuff Size: Standard 04-14-2014 14:45-0500 Body height 160.02 cm [facility]y [facility].; [employer], [facility]. 04-14-2014 14:45-0500 Body mass index (BMI) [Percentile] Per age and sex 99 % Leny Arredondo [facility].; Terry [employer] [facility], [facility]. 04-14-2014 14:45-0500 Body mass index (BMI) [Ratio] 43.58 kg/m2 Leny Arredondo [facility].; [employer], [facility]. 04-14-2014 14:45-0500 Body surface area Derived from formula 2.11 m2 Leny Arredondo LPN [employer] [facility].; [employer] 04-14-2014 14:45-0500 Body temperature 99.1 [degF] [facility]y [facility]redondo [facility].; [employer]. 04-14-2014 14:45-0500 Body weight 111.59 kg Leny Arredondo [facility].; [employer]. 10-14-2013 10:25-0400 Body height 158.75 cm Crystal Uptain CNM Work Phone: [employer].; [employer]. 10-14-2013 10:25-0400 Body mass index (BMI) [Percentile] Per age and sex 99 % [employer] Uptain CNM Work Phone: [employer].; [employer]. 10-14-2013 10:25-0400 Body mass index (BMI) [Ratio] 43.92 kg/m2 Crystal Uptain CNM Work Phone: [employer].; [employer]. 10-14-2013 10:25-0400 Body surface area Derived from formula 2.09 m2 Crystal Uptain CNM Work Phone: [employer].; [employer]. 10-14-2013 10:25-0400 Body temperature 99.1 [degF] [employer] Uptain CNM Work Phone: [employer].; [employer]. Comment on above: Method: Tympanic 10-14-2013 10:25-0400 Body weight 110.68 kg Crystal Uptain CNM Work Phone: [employer].; [employer]. 01-12-2013 14:05-0400 Body height 160.02 cm [facility] [employer]. 01-12-2013 14:05-0400 Body mass index (BMI) [Percentile] Per age and sex 99 % [facility].; [employer] 01-12-2013 14:05-0400 Body mass index (BMI) [Ratio] 39.68 kg/m2 Zeinab Evans [facility] [employer] [facility], Inc.; [employer] 01-12-2013 14:05-0400 Body surface area Derived from formula 2.03 m2 Zeinab Evans [facility], Inc.; [employer] 01-12-2013 14:05-0400 Body temperature 99.8 [degF] Zeinab Evans [facility] [employer] [facility], Inc.; [employer]. Comment on above: Method: Tympanic 01-12-2013 14:05-0400 Body weight 101.61 kg Zeinab Evans [facility] [employer] [facility], Inc.; [employer] 10-08-2012 09:19-0400 Body height 157.48 cm Leny Arredondo [facility] [employer] [facility], Inc.; [employer] 10-08-2012 09:19-0400 Body mass index (BMI) [Percentile] Per age and sex 99 % Leny Arredondo [facility] [employer] [facility], Inc.; [employer] 10-08-2012 09:19-0400 Body mass index (BMI) [Ratio] 40.6 kg/m2 Leny Arredondo [facility] [employer] [facility], Inc.; [employer] 10-08-2012 09:19-0400 Body surface area Derived from formula 2 m2 Leny Arredondo [employer] [place] [employer] [facility], Inc.; [employer] 10-08-2012 09:19-0400 Body temperature 97.8 [degF] Leny Arredondo [facility] Inc.; [employer], [employer]. 10-08-2012 09:19-0400 Body weight 100.7 kg Leny Arredondo [facility] [employer] [facility], Inc.; [employer] 08-17-2012 09:09-0400 Body height 157.48 cm Zeinab Evans [facility] [employer] [facility], Inc.; [employer] 08-17-2012 09:09-0400 Body mass index (BMI) [Percentile] Per age and sex 99 % Zeinab Evans [employer] [facility], Inc.; [facility], Inc[facility] 08-17-2012 09:09-0400 Body mass index (BMI) [Ratio] 40.06 kg/m2 Zeinab Evans [employer] [facility], Inc.; Terry [employer] [facility], Inc[employer] 08-17-2012 09:09-0400 Body surface area Derived from formula 1.99 m2 Zeinab Evans [employer] [facility], Inc.; Terry [employer] [facility], Inc[employer] 08-17-2012 09:09-0400 Body weight 99.34 kg Zeinab Evans [facility], Inc.; Terry [employer] [facility], Inc[employer] 08-17-2012 09:09-0400 Diastolic blood pressure 79 mm[Hg] Zeinab Evans [employer] [facility], Inc.; [employer] Comment on above: Patient Position: Sitting; Cuff Location : Left Arm; Cuff Size: Large 08-17-2012 09:09-0400 Heart rate 81 /min Zeinab Evans [employer] [facility], Inc.; [employer] Comment on above: Pattern: Regular 08-17-2012 09:09-0400 Systolic blood pressure 133 mm[Hg] Zeinab Evans [facility], Inc.; [employer] Comment on above: Patient Position: Sitting; Cuff Location : Left Arm; Cuff Size: Large 06-24-2012 15:54-0500 Body height 160.02 cm Mallory Siddiqui LPN [facility], Inc.; [employer] 06-24-2012 15:54-0500 Body mass index (BMI) [Percentile] Per age and sex 99 % Mallory Siddiqui LPN [facility], Inc.; [employer] 06-24-2012 15:54-0500 Body mass index (BMI) [Ratio] 39.19 kg/m2 Mallory Siddiqui LPN [place] [employer] [facility], Inc.; [employer] 06-24-2012 15:54-0500 Body surface area Derived from formula 2.02 m2 Mallory Siddiqui LPN [facility].; Terry [employer] [facility] Hospital[facility]. 06-24-2012 15:54-0500 Body temperature 100 [degF] Mallory Wesurinder [facility], [facility].; Terry [employer]. Comment on above: Method: Tympanic 06-24-2012 15:54-0500 Body weight 100.36 kg Mallory Sinsurinder MCDONALD [facility], Inc.; Terry [employer] 06-24-2012 15:54-0500 Heart rate 87 /min Mallory Sinsurinder [employer] [facility].; [employer]. Comment on above: Pattern: Regular 06-24-2012 15:54-0500 Inhaled oxygen concentration 20 % Mallory Sinsurinder [facility].; [employer], [employer]. Comment on above: Room air 06-24-2012 15:54-0500 Inhaled oxygen concentration 21 % Mallory Siddiqui LPN [facility], [employer].; Terry [employer]. Comment on above: Room air 06-24-2012 15:54-0500 SaO2% (BldA) [Mass fraction] 98 % Mallory Wesurinder [facility], [facility].; Terry [employer]. 12-25-2011 15:43-0400 Body height 160.02 cm Malloryrodrigo Siddiqui LPN [place] [employer] [facility], [facility].; [employer]. 12-25-2011 15:43-0400 Body mass index (BMI) [Percentile] Per age and sex 99 % Mallory Siddiqui LPN [facility].; Terry [employer]. 12-25-2011 15:43-0400 Body mass index (BMI) [Ratio] 39.7 kg/m2 Mallory Sinsurinder [facility] [employer] [facility], [employer].; [place] [employer], [employer]. 12-25-2011 15:43-0400 Body surface area Derived from formula 2.03 m2 Mallory Siddiqui [employer] [place] [employer] [facility], [employer].; Terry [employer]. 12-25-2011 15:43-0400 Body temperature 99.7 [degF] Mallory Siddiqui TAMARA [place] [employer] [facility].; [employer]. Comment on above: Method: Tympanic 12-25-2011 15:43-0400 Body weight 101.66 kg Mallory Reyesalvaradoifeanyi TAMARA [facility].; [employer] 12-25-2011 15:43-0400 Diastolic blood pressure 85 mm[Hg] Mallory Vogtmeñoifeanyi [facility]The [facility] [employer] [facility].; [employer] Comment on above: Patient Position: Sitting; Cuff Location : Left Arm; Cuff Size: Standard 12-25-2011 15:43-0400 Heart rate 101 /min Mallory Vogtsurinder [facility] [employer] [facility].; [employer]. Comment on above: Pattern: Regular 12-25-2011 15:43-0400 Systolic blood pressure 129 mm[Hg] Mallory Reyesalvaradoifeanyi [facility] [employer] [facility].; [employer]. Comment on above: Patient Position: Sitting; Cuff Location : Left Arm; Cuff Size: Standard 09-22-2011 09:11-0400 Body height 160.02 cm Crystal Uptain CNM Work Phone: [employer].; [employer] 09-22-2011 09:11-0400 Body mass index (BMI) [Percentile] Per age and sex 99 % [employer] Uptain CNM Work Phone: [employer].; [employer] 09-22-2011 09:11-0400 Body mass index (BMI) [Ratio] 38.26 kg/m2 Crystal Uptain CNM Work Phone: [employer].; [employer] 09-22-2011 09:[id number] Body surface area Derived from formula 2 m2 Crystal Uptain CNM Work Phone: [employer].; [employer]. 09-22-2011 09:11-0400 Body temperature 97.4 [degF] Crystal Uptain CNM Work Phone: [employer].; [employer]. Comment on above: Method: Tympanic 09-22-2011 09:110400 Body weight 97.98 kg [employer] UpOneBuckResume CNM Work Phone: [facility].; [employer] 09-22-2011 09:11-0400 Diastolic blood pressure 70 mm[Hg] [employer] Uptain CNM Work Phone: [place] [employer] [facility].; [employer]. Comment on above: Patient Position: Sitting; Cuff Location : Right Arm; Cuff Size: Large 09-22-2011 09:110400 Heart rate 74 /min [employer] CNM Work Phone: [place] [employer] [facility] Hospital[facility]; [employer]. Comment on above: Pattern: Regular 09-22-2011 09:11-0400 Systolic blood pressure 103 mm[Hg] Kumotain CNM Work Phone: [place] [employer] [facility]; [employer]. Comment on above: Patient Position: Sitting; Cuff Location : Right Arm; Cuff Size: Large 07-23-2011 15:[id number] Body height 160.02 cm Margoth Nathan [facility], [facility].; [employer]. 07-23-2011 15:02-0400 Body mass index (BMI) [Percentile] Per age and sex 99 % [facility] Nathan [facility], [facility].; Terry [employer] [facility]. 07-23-2011 15:02-0400 Body mass index (BMI) [Ratio] 38.26 kg/m2 Margoth Nathan CAR UNLOADER [place] [employer] [facility].; [employer]. 07-23-2011 15:02-0400 Body surface area Derived from formula 2 m2 [facility] Nathan CAR UNLOADER [facility], [facility].; [employer], [employer]. 07-23-2011 15:02-0400 Body temperature 98.7 [degF] [facility] Nathan CAR UNLOADER [facility].; [employer]. Comment on above: Method: Tympanic 07-23-2011 15:02-0400 Body weight 97.98 kg Zeinab Evans TAMARA [facility], Inc.; [employer], [employer]. 06-13-2011 13:30-0500 Body height 159.38 cm Leny Arredondo TAMARA [facility], [facility].; [employer], [employer] 06-13-2011 13:30-0500 Body mass index (BMI) [Percentile] Per age and sex 99 % Lenycarol Arredondo CAR UNLOADER [facility], Inc.; [employer], Inc[employer] 06-13-2011 13:30-0500 Body mass index (BMI) [Ratio] 38.21 kg/m2 Leny Arredondo [facility], Inc.; Terry [employer] 06-13-2011 13:30-0500 Body surface area Derived from formula 1.98 m2 Leny Arredondo CAR UNLOADER [facility], Inc.; [employer], Inc. 06-13-2011 13:30-0500 Body temperature 98.2 [degF] Lenycarol Arredondo CAR UNLOADER [facility], Inc.; [employer], [employer] 06-13-2011 13:30-0500 Body weight 97.07 kg Leny Arredondo CAR UNLOADER [facility], [facility].; [employer], [employer]. 02-24-2011 15:29-0500 Body height 156.21 cm Leny Arredondo CAR UNLOADER [facility], [facility].; [employer], [employer]. 02-24-2011 15:29-0500 Body mass index (BMI) [Percentile] Per age and sex 99 % Lenycarol Arredondo TAMARA [facility], [facility].; [employer], [employer]. 02-24-2011 15:29-0500 Body mass index (BMI) [Ratio] 39.41 kg/m2 Leny Arredondo CAR UNLOADER [facility], [facility].; [employer], [employer]. 02-24-2011 15:29-0500 Body surface area Derived from formula 1.95 m2 Leny Arredondo CAR UNLOADER [place] [employer] [facility], [facility].; [employer], [employer]. 02-24-2011 15:29-0500 Body temperature 99.3 [degF] Leny Arredondo CAR UNLOADER [place] [employer] [facility], [facility].; [employer]. 02-24-2011 15:29-0500 Body weight 96.16 kg Leny Arredondo [facility], [facility].; [place] [employer] [facility]. 01-07-2011 14:58-0400 Body height 158.75 cm Zeinab Evans [facility], [facility].; [employer]. 01-07-2011 14:58-0400 Body mass index (BMI) [Percentile] Per age and sex 99 % Margoth Stuckey [facility], [facility].; [place] [employer] [facility]. 01-07-2011 14:58-0400 Body mass index (BMI) [Ratio] 38.16 kg/m2 [facility] Burtr[facility]Ed [facility] Hospital[facility].; [place] [employer] [facility]. 01-07-2011 14:58-0400 Body surface area Derived from formula 1.97 m2 [facility] NathanEd [facility] HospitalSen[facility].; [employer]. 01-07-2011 14:58-0400 Body temperature 99.1 [degF] Margoth Stuckey [facility].; [employer]. Comment on above: Method: Tympanic 01-07-2011 14:58-0400 Body weight 96.16 kg Margoth Stuckey [facility].; [employer]. 06-21-2010 15:40-0500 Body height 157.48 cm Crystal Uptain CNM Work Phone: [place] [employer].; [employer]. 06-21-2010 15:40-0500 Body mass index (BMI) [Percentile] Per age and sex 99 % Crystal Uptain CNM Work Phone: [employer].; [employer]. 06-21-2010 15:40-0500 Body mass index (BMI) [Ratio] 37.13 kg/m2 Crystal Uptain CNM Work Phone: [employer].; [employer]. 06-21-2010 15:40-0500 Body surface area Derived from formula 1.92 m2 Crystal Uptain CNM Work Phone: [facility].; [employer] 06-21-2010 15:40-0500 Body temperature 98.5 [degF] Colleen Cedillo CNM Work Phone: [employer]; [employer]. Comment on above: Method: Tympanic 06-21-2010 15:40-0500 Body weight 92.08 kg [employer] Mamadou CNM Work Phone: [employer]; [employer]. Encounters Encounter Date Encounter Type Care Provider Facility Start: 03-03-2025 ambulatory Amee Shrestha lity:[facility] Start: 02-08-2025 ambulatory Ning [place] Facility :[facility] Start: 02-06-2025 End: 02-06-2025 ambulatory Ning Oquendo Facility:[facility] Start: 01-31-2025 ambulatory [place] InterEx PA Facil ity:[facility] Start: 01-30-2025 [facility] Start: 01-30-2025 End: 01-30-2025 ambulatory Mallory Freya Chopra Facility:[facility] Start: 01-25-2025 End: 01-25-[address] Amee Schaffer MD -[facility] Work Phone: Start: 01-25-2025 End: 01-25-2025 ambulatory Path PA-C Work Phone: -[facility] Start: 01-20-2025 End: 01-20-[address] Amee Schaffer MD -[facility] Work Phone: Start: 01-20-2025 End: 01-20-2025 ambulatory Path PA-C Work Phone: -[facility] Start: 01-06-2025 End: 01-06-2025 Patient encounter procedure Ning Oquendo CNM -[facility] Work Phone: Start: 01-06-2025 End: 01-06-2025 ambulatory Path PA-C Work Phone: -[facility] Start: 01-01-2025 ambulatory Amee Shrestha lity:KIERAN Start: 01-01-2025 Non-patient / Non-visit Dr. Sally Schaffer MD -[facility] Start: 01-01-2025 End: 01-01-2025 ambulatory Path PA-C Work Phone: -[facility] Start: 01-01-2025 End: 01-01-[address] Amee Schaffer MD -[facility] Work Phone: Start: 12-21-2024 End: 12-21-[address] Mallory Dover DO -[facility] Work Phone: Start: 12-21-2024 End: 12-21-2024 ambulatory Path PA-C Work Phone: -[facility] Start: 12-13-2024 End: 12-13-2024 ambulatory Path PA-C Work Phone: -Laboratory Start: 12-13-2024 End: 12-13-2024 Patient encounter procedure Bessie Mansfield MILL CONTROL OPERATOR-C -Laboratory Work Phone: Start: 12-13-2024 End: 12-13-2024 ambulatory Bessie Mansfield MILL CONTROL OPERATOR Facility:[facility] Start: 12-06-2024 End: 12-06-2024 ambulatory Path PA-C Work Phone: -[facility] Start: 12-06-2024 End: 12-06-2024 Patient encounter procedure Bessie Mansfield MILL CONTROL OPERATOR-C -[facility] Work Phone: Start: 12-06-2024 End: 12-06-2024 ambulatory Bessie Mansfield MILL CONTROL OPERATOR Facility:[facility] Start: 11-15-2024 End: 11-15-2024 Patient encounter procedure Bessie Delgadotings MILL CONTROL OPERATOR-C -[facility] Work Phone: Start: 11-15-2024 End: 11-15-2024 ambulatory Path PA-C Work Phone: -[facility] Start: 10-24-2024 End: 10-24-2024 ambulatory [facility] Start: 10-17-2024 End: 10-17-2024 Patient encounter procedure Bessie Mansfield MILL CONTROL OPERATOR-C -[facility] Work Phone: Start: 10-17-2024 End: 10-17-2024 ambulatory Path PA-C Work Phone: -[facility] Start: 10-10-2024 End: 10-10-2024 ambulatory AMEE SCHAFFER [facility] Start: 09-19-2024 End: 09-19-2024 Patient encounter procedure Ning DEMPSEY -[facility] Work Phone: Start: 09-19-2024 End: 09-19-2024 ambulatory Louise InterEx PA-C Work Phone: [facility] Work Phone: Start: 08-24-2024 End: 08-24-[address] Amee Schaffer MD -[facility] Work Phone: Start: 08-24-2024 End: 08-24-2024 ambulatory Amee Schaffer Facility:[facility] Start: 08-05-2024 End: 08-05-2024 Patient encounter procedure Ning DEMPSEY -[facility] Work Phone: Start: 08-05-2024 End: 08-05-2024 ambulatory Path PA-C Work Phone: [facility] Work Phone: Start: 08-05-2024 End: 08-05-2024 ambulatory Ning Oquendo Facility:[facility] Start: 07-29-2024 End: 07-29-2024 Patient encounter procedure Jenny So CNM -[facility] Work Phone: Start: 07-29-2024 End: 07-29-2024 ambulatory Louise Gray PA-C Work Phone: [facility] Work Phone: Start: 07-29-2024 End: 07-29-2024 ambulatory Jenny So Facility:[facility] Start: 07-21-2024 End: 07-21-2024 Patient encounter procedure Ning Jere CNM -[facility] Work Phone: Start: 07-21-2024 End: 07-21-2024 ambulatory Louisehelene GILES Facility:[facility] Start: 07-08-2024 Non-patient / Non-visit Hannah narayan RN -[facility] Work Phone: Start: 07-08-2024 ambulatory Hannah Mercado Facility :[facility] Start: 06-08-2024 End: 06-08-2024 Patient encounter procedure Leeann Hawkins NP-C -[facility] Work Phone: Start: 06-08-2024 End: 06-08-2024 Patient encounter status Leeann Hawkins MILL CONTROL OPERATOR-C [facility] Start: 06-08-2024 End: 06-08-2024 ambulatory Leeann Hawkins Facility:[facility] Start: 04-27-2024 End: 04-27-2024 Office outpatient visit 15 minutes Crystal Uptain CNM Work Phone: [employer] [facility] Start: 01-27-2024 End: 01-27-2024 Orders Crystal Uptain CNM Work Phone: [employer] [facility]. Start: 12-22-2023 End: 12-22-2023 Office outpatient visit 15 minutes Crystal Uptain CNM Work Phone: [facility], [employer]. Start: 11-25-2023 End: 11-26-2023 [facility] Start: 10-19-2023 End: 10-20-2023 Orders Crystal Uptain CNM Work Phone: [employer] Start: 09-09-2023 End: 09-09-2023 Orders Crystal Uptain CNM Work Phone: [employer] Start: 08-24-2023 End: 08-24-2023 Office outpatient visit 15 minutes Crystal Uptain CNM Work Phone: [employer] Start: 08-24-2023 Follow-up encounter Crystal Up tain CNM Work Phone: [employer] Start: 08-11-2023 End: 08-11-2023 Orders Crystal Uptain CNM Work Phone: [employer] Start: 06-05-2023 End: 06-05-2023 Orders Crystal Uptain CNM Work Phone: [employer] Start: 06-03-2023 End: 06-03-2023 ambulatory PA-C Path PA Work Phone: [facility] Work Phone: Start: 06-03-2023 End: 06-03-2023 Patient encounter procedure PA-C Path PA Work Phone: [facility]-Laboratory, Specimen Work Phone: Start: 06-03-2023 End: 06-03-2023 Patient encounter procedure PA-C Louise InterEx PA Work Phone: [facility] Work Phone: Start: 05-20-2023 End: 05-20-2023 Orders Crystal Uptain CNM Work Phone: [employer] Start: 05-13-2023 End: 05-13-2023 Orders Crystal Uptain CNM Work Phone: [employer] Start: 04-27-2023 End: 04-27-2023 Office outpatient visit 25 minutes Crystal Uptain CNM Work Phone: [employer]. Start: 04-15-2023 End: 04-15-2023 ambulatory PA-C Louise InterEx PA Work Phone: [facility] Work Phone: Start: 04-15-2023 End: 04-15-2023 Patient encounter procedure PA-C Louise InterEx PA Work Phone: [facility] Work Phone: Start: 03-25-2023 End: 03-25-2023 ambulatory PA-C Louise InterEx PA Work Phone: [facility] Work Phone: Start: 03-25-2023 End: 03-25-2023 Patient encounter procedure PA-C Louise InterEx [facility] Start: 03-25-2023 End: 03-25-2023 Patient encounter procedure PA-C Louise Gray PA Work Phone: [facility] Work Phone: Start: 11-21-2020 End: 11-21-2020 Patient encounter procedure Crystal Uptain CNM Work Phone: [employer]. Start: 01-17-2020 End: 01-17-2020 Medication Crystal Uptain CNM Work Phone: [employer]. Start: 08-09-2019 End: 08-09-2019 Orders Crystal Uptain CNM Work Phone: [employer]. Start: 08-01-2019 End: 08-01-2019 Office outpatient visit 10 minutes Crystal Uptain CNM Work Phone: [employer]. Start: 06-23-2019 End: 06-23-2019 Office outpatient visit 15 minutes Crystal Uptain CNM Work Phone: [employer] Start: 05-23-2019 End: 05-23-2019 Office outpatient visit 15 minutes Crystal Uptain CNM Work Phone: [employer] Start: 02-14-2019 End: 02-14-2019 Office outpatient visit 10 minutes Crystal Uptain CNM Work Phone: [employer] Start: 01-13-2019 End: 01-13-2019 Office outpatient visit 25 minutes Crystal Uptain CNM Work Phone: [employer] Start: 2018 End: 2018 Office outpatient visit 25 minutes Crystal Uptain CNM Work Phone: [employer] Start: 09-07-2018 End: 09-07-2018 Patient encounter procedure Crystal Uptain CNM Work Phone: [employer] Start: 09-02-2018 End: 09-02-2018 Office outpatient visit 15 minutes Crystal Uptain CNM Work Phone: [employer] Start: 06-30-2018 End: 06-30-2018 Office outpatient visit 15 minutes Crystal Uptain CNM Work Phone: [employer] Start: 05-13-2018 End: 05-13-2018 Telephone follow-up Crystal Uptain CNM Work Phone: [employer] Start: 05-06-2018 Patient encounter procedure MALLORY AGUILAR [facility] Start: 04-29-2018 End: 04-29-2018 Patient encounter procedure NATHAN NOBLES [facility] Start: 04-22-2018 Patient encounter procedure RED ALBERTO [facility] Start: 04-14-2018 End: 04-14-2018 Patient encounter procedure WANDER POLLACK [facility] Start: 04-05-2018 End: 04-05-2018 Patient encounter procedure SHARAN JEFFREY [facility] Start: 03-08-2018 Patient encounter procedure SHARAN J [facility] Start: 02-11-2018 End: 02-11-2018 Patient encounter procedure SHARAN Saldivar [facility] Start: 01-28-2018 End: 01-28-2018 Patient encounter procedure PORSHA YUN [facility] Start: 01-11-2018 Patient encounter procedure SHARAN Saldivar [facility] Start: 08-04-2017 End: 08-04-2017 Patient encounter procedure Crystal Uptain CNM Work Phone: [employer] Start: 06-24-2017 End: 06-24-2017 Office outpatient visit 10 minutes Crystal Uptain CNM Work Phone: [employer] Start: 06-18-2017 End: 06-18-2017 Office outpatient visit 15 minutes Crystal Uptain CNM Work Phone: [employer] Start: 05-21-2017 End: 05-21-2017 Office outpatient visit 15 minutes Crystal Uptain CNM Work Phone: [employer] Start: 04-21-2017 End: 04-21-2017 Medication Crystal Uptain CNM Work Phone: [employer] Start: 03-25-2017 End: 03-25-2017 Patient encounter procedure Crystal Uptain CNM Work Phone: [employer] Start: 02-26-2017 End: 02-26-2017 Medication Crystal Uptain CNM Work Phone: [employer] Start: 02-24-2017 End: 02-24-2017 Patient encounter procedure Crystal Uptain CNM Work Phone: [employer] Start: 10-16-2016 End: 10-16-2016 Office outpatient visit 15 minutes Crystal Uptain CNM Work Phone: [employer] Start: 07-14-2016 End: 07-14-2016 Patient encounter procedure Crystal Uptain CNM Work Phone: [employer] Start: 04-09-2016 End: 04-09-2016 Orders Crystal Uptain CNM Work Phone: [employer] Start: 04-09-2016 End: 04-09-2016 Medication Crystal Uptain CNM Work Phone: [employer] Start: 04-02-2016 End: 04-02-2016 Patient encounter procedure Crystal Uptain CNM Work Phone: [employer] Start: 12-03-2015 End: 12-03-2015 Nursing evaluation of patient and report Crystal Uptain CNM Work Phone: [employer] Start: 11-26-2015 End: 11-26-2015 Orders Crystal Uptain CNM Work Phone: [employer] Start: 09-14-2015 End: 09-14-2015 Office outpatient visit 15 minutes Crystal Uptain CNM Work Phone: [employer] Start: 03-06-2015 End: 03-06-2015 Office outpatient visit 15 minutes Crystal Uptain CNM Work Phone: [employer] Start: 10-05-2014 End: 10-05-2014 Office outpatient visit 15 minutes Crystal Uptain CNM Work Phone: [employer] Start: 04-14-2014 End: 04-14-2014 Patient encounter procedure Crystal Uptain CNM Work Phone: [employer] Start: 03-13-2014 End: 03-13-2014 Nursing evaluation of patient and report Crystal Uptain CNM Work Phone: [employer] Start: 10-14-2013 End: 10-14-2013 Patient encounter procedure Crystal Uptain CNM Work Phone: [employer] Start: 01-12-2013 End: 01-12-2013 Patient encounter procedure Crystal Uptain CNM Work Phone: [employer] Start: 10-08-2012 End: 10-08-2012 Patient encounter procedure Crystal Uptain CNM Work Phone: [employer] Start: 08-17-2012 End: 08-17-2012 Patient encounter procedure Crystal Uptain CNM Work Phone: [employer]. Start: 08-17-2012 End: 08-17-2012 Routine general medical examination at a [facility] Jame Wolfe MD Work Phone: [employer].; [employer]. Start: 06-24-2012 End: 06-24-2012 Patient encounter procedure Crystal Uptain CNM Work Phone: [employer]. Start: 12-25-2011 End: 12-25-2011 Patient encounter procedure Crystal Uptain CNM Work Phone: [employer] Start: 09-22-2011 End: 09-22-2011 Patient encounter procedure Crystal Uptain CNM Work Phone: [employer] Start: 07-23-2011 End: 07-23-2011 Patient encounter procedure Crystal Uptain CNM Work Phone: [employer] Start: 06-13-2011 End: 06-13-2011 Patient encounter procedure Crystal Uptain CNM Work Phone: [employer] Start: 02-24-2011 End: 02-24-2011 Patient encounter procedure Crystal Uptain CNM Work Phone: [employer]. Start: 01-07-2011 End: 01-07-2011 Patient encounter procedure Crystal Uptain CNM Work Phone: [employer]. Start: 06-21-2010 End: 06-21-2010 Patient encounter procedure Crystal Uptain CNM Work Phone: [employer] Patient encounter procedure Mary Haji MA [employer].; [employer]. Patient encounter procedure Louise oMon PA-C Work Phone: [employer].; [employer] Patient encounter procedure Aracelis Dueñas LPN [facility]. Procedures Date Procedure Procedure Detail Performing Clinician [...] HCV Quant by PCR testing - HCVPCR #[id number] Non Reactive: < 0.8 Equivocal: >/= 0.8 [...] [facility] Work Phone: Start: 06-03-2023 Genital Culture DC-Mynor Howard daina Moon DC Work Phone: Start: 06-03-2023 Investigation of transfusion [...] section History of delivery, currently Bessie Mansfield MILL CONTROL OPERATOR-C H/O: section History of delivery, currently Bessie Mansfield MILL CONTROL OPERATOR-C H/O: section History of delivery, currently Bessie Mansfield MILL CONTROL OPERATOR-C H/O: section History of delivery, currently Dr. Mallory Dover DO H/O: section History of delivery, currently Ning Oquendo CNM H/O: section History of delivery, currently Dr. Amee Schaffer MD H/O: section History of delivery, currently Dr. Amee Schaffer MD Plan of Treatment Date Care Activity Detail Author Start: 01-01-2025 Nonstress test [facility] Start: 01-01-2025 Obstetric monitoring [facility] Start: 01-01-2025 Vital signs measurements [facility] Start: 01-01-2025 [facility] Start: 01-01-2025 Patient discharge [facility] Start: 12-06-2024 CBC W Auto Differential panel - Blood [facility] Start: 12-06-2024 Measurement of glucose 2 hours after glucose challenge for glucose tolerance test [facility] Start: 12-06-2024 Serologic test for syphilis [facility] Start: 12-06-2024 End: 12-06-2024 [facility] Start: 07-29-2024 Chlamydia deoxyribonucleic acid detection [facility] Start: 07-27-2024 Patient encounter procedure Medical; EXTENDED RTN - 3 month rtn-NEEDS TO PAY COPAY! [employer] Start: 27-Jul-2024 09:20-04:00 ARAVIND Cedillo Appointment Request [employer] Start: 03-22-2024 Patient encounter procedure Medical; EXTENDED RTN - 3 MO FU [employer]. Start: 22-Mar-2024 11:00-05:00 ARAVIND Cedillo Appointment Request [employer] Start: 12-22-2023 Patient encounter procedure Medical; EXTENDED RTN - 3 mo f/u [employer] Start: 22-Dec-2023 11:00-04:00 ARAVIND Cedillo Appointment Request [employer] Start: 11-24-2023 Patient encounter procedure Medical; EXTENDED RTN - 3 mo f/u [employer] Start: 24-Nov-2023 10:00-04:00 ARAVIND Cedillo Appointment Request [employer] Start: 08-24-2023 Patient encounter procedure [facility] [employer]. Start: 04-15-2023 Procedure [facility] Start: 04-15-2023 Dehydroepiandrosterone sulfate (DHEA-S) [Mass/volume] in Serum or Plasma [facility] Start: 04-15-2023 Testosterone measurement [facility] Start: 03-25-2023 Liquid based cervical cytology screening [facility] 17-Hydroxyprogestero ne [Mass/volume] in Serum or Plasma [facility] CBC W Auto Different ial panel - Blood [facility] Dehydroepiandrostero ne sulfate (DHEA-S) [Mass/volume] in Serum or Plasma [facility] Erythrocyte mean cor puscular volume determination [facility] anatomy study [facility] anatomy study [facility] Hematocrit [Volume F raction] of Blood [facility] Hemoglobin [Mass/vol ume] in Blood [facility] Hemoglobin A1c/Hemog lobin.total in Blood [facility] Company Leukocytes [#/volume] in Blood [facility] Mean corpuscular hem oglobin concentration determination [facility] Mean corpuscular hem oglobin determination [facility] Measurement of gluco se 2 hours after glucose challenge for glucose tolerance test [facility] Neisseria gonorrhoea e rRNA [Presence] in Unspecified specimen by CUCO with probe detection [facility] Neutrophil count [facility] Neutrophil percent d ifferential count [facility] Path report.final Dx Spec [facility] Patient Education Kick Counts ED False Labor OB Triage: Return to Hospital or Notify Physician if you Experience: [facility] Work Phone: PCR test for Chlamyd ia trachomatis [facility] Platelets [#/volume] in Blood [facility] Red blood cell count [facility] Red cell distributio n width determination [facility] Serologic test for syphilis [facility] T4 free measurement [facility] Testosterone Free [M ass/volume] in Serum or Plasma [facility] Testosterone measurement [facility] Thyroid stimulating hormone measurement [facility] Triiodothyronine, fr ee measurement [facility] Ultrasound scan for growth [facility] Vitamin D, 1,25-dihy droxy measurement [facility] Immunizations Immunization Date Immunization Notes Care Provider Stephen cho 12-06-2024 tetanus toxoid, redu alejandro diphtheria toxoid, and acellular pertussis vaccine, adsorbed [facility] Work Phone: [facility] 03-13-2014 tetanus toxoid, redu alejandro diphtheria toxoid, and acellular pertussis vaccine, adsorbed Crystal Uptain CNM Work Phone: [facility], [employer] [facility] Comment on above: Site: Deltoid (Left) VIS Given: * TDAP, Td (08/26/2012) 12-31-2001 diphtheria, tetanus toxoids and acellular pertussis vaccine Crystal Uptain CNM Work Phone: [facility], [facility]. 10-19-2001 measles, mumps and rubella virus vaccine Crystal Uptain CNM Work Phone: [facility] 10-19-2001 poliovirus vaccine, inactivated Crystal Uptain CNM Work Phone: [facility] 04-06-1998 diphtheria, tetanus toxoids and acellular pertussis vaccine Crystal Uptain CNM Work Phone: [facility].; [facility] 04-06-1998 haemophilus influenz ae type b vaccine, PRP-T conjugate Crystal Uptain CNM Work Phone: [facility].; [facility] 11-29-1997 measles, mumps and rubella virus vaccine Crystal Uptain CNM Work Phone: [facility].; [facility] 11-29-1997 poliovirus vaccine, inactivated Crystal Uptain CNM Work Phone: [facility] 05-12-1997 diphtheria, tetanus toxoids and acellular pertussis vaccine Crystal Uptain CNM Work Phone: [facility].; [facility] 05-12-1997 haemophilus influenz ae type b vaccine, PRP-T conjugate Crystal Uptain CNM Work Phone: [facility].; [facility] 05-12-1997 hepatitis B vaccine, pediatric or pediatric/adolescent dosage Crystal Uptain CNM Work Phone: [facility] 02-24-1997 diphtheria, tetanus toxoids and acellular pertussis vaccine Crystal Uptain CNM Work Phone: [facility].; [facility] 02-24-1997 haemophilus influenz ae type b vaccine, PRP-T conjugate Crystal Uptain CNM Work Phone: [employer] [facility] [employer] [facility], [place] [employer] 02-24-1997 poliovirus vaccine, inactivated Crystal Uptain CNM Work Phone: [employer] [facility].; [facility] 01-03-1997 diphtheria, tetanus toxoids and acellular pertussis vaccine [employer] Work Phone: [facility].; [facility] 01-03-1997 haemophilus influenz ae type b vaccine, PRP-T conjugate [employer] CN Work Phone: [facility] 01-03-1997 poliovirus vaccine, inactivated [employer] Work Phone: [facility].; [facility] 1996 hepatitis B vaccine, pediatric or pediatric/adolescent dosage [employer] CN Work Phone: [facility].; [facility] 1996 hepatitis B vaccine, pediatric or pediatric/adolescent dosage [employer] Work Phone: [facility].; [facility] [place] [employer] Payers Date Payer Category Payer Unknown [id number] 2024 Self-pay [id number] 2024 Unknown [id number] 1996 Unknown [id number] 2.16. 40.1.346622.3.579.2 1996 Unknown [id number] .16.8 40.1.555599.3.579.2 1996 Unknown [id number] .16.8 40.1.856025.3.579.2 1996 Unknown [id number] .16.8 40.1.067206.3.579.2 1996 Unknown [id number] 2.16.8 40.1.272721.3.579.2 1996 Unknown [id number] 2.16.8 40.1.314752.3.579.2.479 1996 Unknown [id number] 2.16.8 40.1.131938.3.579.2.479 1996 Unknown [id number] 2.16.8 40.1.322029.3.579.2.479 1996 Unknown [id number] .16.8 40.1.842815.3.579.2.479 1996 Unknown [id number] .16.8 40.1.007924.3.579.2.479 1996 Unknown [id number] .16.8 40.1.268517.3.579.2.479 1996 Unknown [id number] .16.8 40.1.175085.3.579.2.651 1996 Unknown [id number] ..[id number] 40.1.000856.3.579.2.651 1996 Unknown [id number] .16.8 40.1.251988.3.579.2.651 Medicaid [id number] Unknown [id number] Unknown [facility] [id number] Unknown [employer] [id number] Unknown Unknown [id number] 2.16.8 40.1.358330.3.579.2.462 Unknown [id number] 2.16.8 40.1.455172.3.579.2.462 Unknown [id number] 2.16.8 40.1.243288.3.579.2.462 Unknown [id number] 2.16.8 40.1.883808.3.579.2.462 Unknown [id number] 2.16.8 40.1.465338.3.579.2.462 Unknown [id number] 2.16.8 40.1.823011.3.579.2.462 Unknown [id number] 2.16.8 40.1.887022.3.579.2.462 Unknown [id number] 2.16.8 40.1.659463.3.579.2.462 Unknown [id number] 2.16.8 40.1.892358.3.579.2.462 Unknown [id number] 2.16.8 40.1.394274.3.579.2.462 Unknown [id number] 2.16.8 40.1.656909.3.579.2.462 Unknown [id number] 2.16.8 40.1.390383.3.579.2.462 Unknown [id number] 2.16.8 40.1.176757.3.579.2.462 Unknown [id number] 2.16.8 40.1.441281.3.579.2.462 Unknown [id number] 2.16.8 40.1.773720.3.579.2.462 Unknown [id number] 2.16.8 40.1.599944.3.579.2.462 Unknown [id number] 2.16.8 40.1.277327.3.579.2.462 Unknown [id number] 2.16.8 40.1.988471.3.579.2.462 Unknown [id number] 2.16.8 40.1.054720.3.579.2.462 Unknown [id number] 2.16.8 40.1.560144.3.579.2.462 Unknown [id number] 2.16.8 40.1.181362.3.579.2.462 Unknown [id number] 2.16.8 40.1.046726.3.579.2.462 Unknown [id number] 2.16.8 40.1.773045.3.579.2.462 Unknown [id number] 2.16.8 40.1.287426.3.579.2.462 Unknown [id number] 2.16.8 40.1.074742.3.579.2.462 Unknown [id number] 2.16.8 40.1.515409.3.579.2.462 Social History Date Type Detail Facility Start: 03-25-2023 End: 06-03-2023 Tobacco smoking status NHIS Unknown if ever smoked [facility] Start: 05-10-2018 None [facility] Start: 1995 Sex Assigned At Female [facility] Child(bobby) Child(bobby) [employer] Tobacco Use: Tobacco Use: ; N ever smoker. [employer] Tobacco/Smoke Exposure: Tobacco/ Smoke Exposure: ; Family members smoke indoors. [employer] Family members s moke indoors [employer]; [employer] Work Phone: Start: 07-08-2024 End: 08-04-2024 Never smoked tobacco [facility] Start: 08-01-2024 End: 08-09-2024 Sex Female (finding) [facility] Sex Female [facility] Clinical Notes 03-25-2023 to 01-25-2025 Note Date & Type Note Facility 01-25-2025 Progress note [facility] 01-06-2025 Progress note [facility] 01-06-2025 Progress note Note Date/Time January 06, 2025 2:16pm [facility] [address] [place] [address], [address] [place] [address] OFFICE VISIT Date of Service: 01/06/25 MR#: [id number] Acct: [id number] Name: PATTY ALVAREZ Rep #: [id number] : 1995 Provider: ARAVIND Oquendo Age/Sex: 29/F [place] [facility] [place]: Signed Intake Vital Signs 12/06/24 15:34 01/01/25 09:37 01/06/25 13:51 01/06/25 13:53 Height 5 ft 3 in 5 ft 3 in 5 ft 3 in 5 ft 3 in Weight: 285 lb 6 oz BMI 50.5 BP 112/72 Intake Visit Reasons: 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 Consent given for her to read more [...] Cosigner Signature: Date (if applicable) CC: ~ [facility] Work Phone: 1(785) 971-521906-30-2025 Evaluation note* Diagnosis Onset Date Resolution Status [...] Supervision of high-risk acute January 20 2:22pm [facility] Work Phone: 1(503) 600-628206-30-2025 Evaluation note* Diagnosis Onset Date Resolution Status [...] 15, 2024 1:32pm Anxiety and depression acute [facility] 2024 3:31pm History of delivery , currently [...] Supervision of high-risk acute January 25 9:59am [facility] Work Phone: 1(788) 133-968706-02-2025 Evaluation note* Diagnosis Onset Date Resolution Status [...] 17, 2024 3:32pm Anxiety and depression acute [facility] 2024 1:32pm History of delivery , currently acute November 15 1:32pm History of miscarriage, currently acute November 15 1:32pm Obesity affecting acute November 15, 2024 1:32pm acute November 15 1:32pm PUPP (pruritic urticarial papules and plaques of ) acute November 15, 2024 1:32pm Supervision of high-risk acute November 15, 2024 1:32pm Anxiety and depression acute [facility] 2024 3:31pm History of delivery , currently [...] Supervision of high-risk acute December 21 10:15am [facility] Work Phone: 1(739) 941-340806-02-2025 Evaluation note* Diagnosis Onset Date Resolution Status [...] of high-risk acute January 06, 2025 1:49pm [facility] Work Phone: 1(222) 497-441206-02-2025 Progress [facility] [address] [place] [address], [address] [place] [address] OFFICE VISIT Date of Service: 09/19/24 MR#: [id number] Acct: [id number] Name: AVELINOPATTY STOLL Rep #: [id number] : 1995 Provider: ARAVIND Oquendo Age/Sex: 28/F [place] [facility] Status: Signed Intake Vital Signs 07/29/24 14:29 08/24/24 14:44 09/19/24 14:11 Height 5 ft 3 in 5 ft 3 in 5 ft 3 in Weight: 273 lb BMI 48.3 BP 122/78 H Intake Visit Reasons: 17 wk ob * 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 10/15/20 10 spontaneous Delivery Date: 05/10/18 Last Updated by: Laine Harden Twins; Breech/Breech Delivery Date: 05/10/18 Last Updated by: Laine Harden Twins; Breech/Breech Delivery Date: 10/15/20 Last Updated by: Hannah Mercado RN D&C - [facility] HPI 17 wk ob * Details: PATTY [...] yet. US set up for 10/10 with [facility]. has rash on upper thighs-benadryl cream [...] Cosigner Signature: Date (if applicable) CC: ~ [facility]06-02-2025 Progress note Author Ning Oquendo [facility] Note Date/Time September 19, 2024 2:39p m [facility] [address] [place] [address], [address] [place] [address] OFFICE VISIT Date of Service: 09/19/24 MR#: [id number] Acct: [id number] Name: PATTY ALVAREZ Rep #: [id number] : 1995 Provider: ARAVIND Oquendo Age/Sex: 28/F Location: 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 10/15/20 10 spontaneous Delivery Date: 05/10/18 Last Updated by: Laine aHrden Twins; Breech/Breech Delivery Date: 05/10/18 Last Updated by: Laine Harden Twins; Breech/Breech Delivery Date: 10/15/20 Last Updated by: Hannah Mercado RN D&C - [facility] HPI 17 wk ob * Details: PATTY [...] yet. US set up for 10/10 with [facility]. has rash on upper thighs-benadryl cream [...] fallen in the past year?: No 09/19/24 4136 <Electronically signed by Ning lim CNM> Date _ Ning Oquendo CNM Cosigner Signature: Date (if applicable) CC: ~ [facility] [employer] [facility] Work Phone: 1(570) 248-421005-07-2025 Evaluation note* Diagnosis Onset Date Resolution Status [...] Supervision of high-risk acute December 06 3:31pm [facility] Work Phone: 1(596) 310-350605-07-2025 Evaluation note* Diagnosis Onset Date Resolution Status [...] 2024 2 :08pm Anxiety and depression acute [facility] 2024 3:32pm History of delivery , currently acute October 17 3:32pm History of miscarriage, currently acute October 17 3:32pm Obesity affecting acute October 17, 2024 3:32pm acute October 17 3:32pm Supervision of high-risk acute October 17, 2024 3:32pm Anxiety and depression acute [facility] 2024 1:32pm History of delivery , currently acute November 15 1:32pm History of miscarriage, currently acute November 15 1:32pm Obesity affecting acute November 15, 2024 1:32pm acute November 15 1:32pm PUPP (pruritic urticarial papules and plaques of ) acute November 15, 2024 1:32pm Supervision of high-risk acute November 15, 2024 1:32pm Anxiety and depression acute [facility] 2024 3:31pm History of delivery , currently [...] Supervision of high-risk acute December 21 10:15am [facility] Work Phone: 1(724) 579-270504-03-2025 Evaluation note* Diagnosis Onset Date Resolution Status [...] of high-risk acute October 17, 2024 3:32pm [facility] Work Phone: 1(380) 908-799604-03-2025 Evaluation note* Diagnosis Onset Date Resolution Status [...] of high-risk acute November 15, 2024 1:32pm [facility] Work Phone: 1(635) 323-531602-19-2025 Evaluation note* Diagnosis Onset Date Resolution Status [...] of high-risk acute July 29, 2024 2:23pm [facility] Work Phone: 1(451) 914-970002-19-2025 Evaluation note* Diagnosis Onset Date Resolution Status [...] high-risk acute September 19, 2024 2 :08pm [facility] Work Phone: 1([phone]) [phone] NotePap Smear Specimen AdequacyDecember 2022 1:51pmComment.Satisfactory for evaluation. Endocervical and/or squamous metaplasticcells (endocervical component)are present.[facility] A#[id number] Hospital CompanyComment on above:Satisfactory for evaluation. Endocervical and/or squamous metaplasticcells (endocervical component)are present.03-25-2023 NotePap Smear Specimen AdequacyDecember 2022 1:51pmComment.Satisfactory for evaluation. Endocervical and/or squamous metaplasticcells (endocervical component)are present.[facility] A#[id number] Hospital CompanyComment on above:Satisfactory for evaluation. Endocervical and/or squamous metaplasticcells (endocervical component)are present.Evaluation note* Diagnosis Onset Date Resolution Status Infertility acute Irregular menses acute Screen for STD (sexually transmitted disease) acute Morbid obesity chronic Encounter for routine gynecological examination noneactive [facility] Work Phone: Evaluation note* Diagnosis Onset Date Resolution Status Infertility acute Irregular menses acute Morbid obesity chronic Encounter for routine gynecological examination noneactive Possible exposure to STD non eactive Oral contraception initial prescription noneactive Monilial vaginitis noneactiv e [facility] Work Phone: Progress note Author Amee Schaffer [facility] Note Date/Time January 25, 2025 10 :41am [facility] [address] [place] [address], [address] [place] [address] OFFICE VISIT Date of Service: 01/25/25 MR#: [id number] Acct: [id number] Name: PATTY ALVAREZ Rep #: [id number] : 1995 Provider: Dr. 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 US set up for 10/10 with [facility]. has rash on upper thighs-benadryl cream and Claritin. 10/17/24 -?-?-?-?-?-?-?-?-?-?-?-?- 21w 1d 278 lb 4 oz (+9 lb 4 oz) 120/74 Negative -?-?-?--?-?-?-?-?-?-?-?-?- Negative 147 -?-?-?-?-?-?-?-?-?-?-?-?- MH-No VB. Hilario Salas Reviewed anatomy US. 11/15/24 -?-?-?-?-?-?-?-?-?-?-?-?- 25w 2d 273 lb 8 oz (+4 lb 8 oz) 118/78 Negative -?-?-?-?-?-?-?-?-?-?-?-?- Negative 153 -?-?-?-?-?-?-?-?-?-?-?-?- MH-No VB. Hilario salas [facility]. 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 Consent given for her to read more [...] depression F41.9; F32.9 CPT Codes Non-Stress Test (79397) Assessment and Plan Assessment and Plan (1) [...] Cosigner Signature: Date (if applicable) CC: ~ [facility] Work Phone: Reason for referral (narrative)No reason for referral information [facility] Work Phone: Summary Purpose Family History [...] No December 11 1 12:30pm Power of Ball Point Splitter No December 11 021 12:30pm Advance Directive Response Recorded Date/ Time Living Will No December 11 1:30pm Do you have a Healthcare Power of Ball Point Splitter? No December 11, 2020 1:30pm Advance Directives No July 01, 025 1:27pm Advance Directive Response Recorded Date/ Time Living Will No December 11 1:30pm Do you have a Healthcare Power of Ball Point Splitter? 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) possible yeast infection Reason for Visit Infertility Irregular menses Morbid obesity Encounter for routine gynecological examination Possible exposure to STD Oral contraception initial prescription Monilial vaginitis Chief Complaint Admit Date Annual (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 AND MOLD FINISHER) June 08, 2024 8:50am Amb Documentation July [...] 2024 2:23pm Chief Complaint Admit Date Annual (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 AND MOLD FINISHER) June 08, 2024 8:50am Amb Documentation July 08, 2024 9:0 4am spotting in early July 21 025 9:49am New OB, LMP 2/2, LITA 02/26July 29 2:23pm rpt clean catch/culture per KW July 2:22pm Chief Complaint Admit Date Annual (PLUG AND MOLD FINISHER) June 08, 2024 8:50am Amb Documentation July [...] Augus t 2024 3:31pm Abnormal glucose affecting [facility]2024 10:15am Anxiety and depression December 21 10:15am History of delivery, currently December 21, 2024 10:15am History of miscarriage, currently pregna nt December 21, 2024 10:15am Obesity affecting December 10:15am December 21, 2024 10:15am PUPP (pruritic urticarial pa pules and plaques of ) December 21, 2024 10:15am Supervision of high-risk [facility] 2024 10:15am Abnormal glucose affecting [facility] 2024 1:49pm Anxiety and depression January 06, 2 025 1:49pm History of delivery, currently January 06, 2025 1:49pm History of miscarriage, currently pregna nt January 06, 2025 1:49pm Obesity affecting January 062024 1:49pm January 06, 2025 1:49pm PUPP (pruritic urticarial pa pules and plaques of ) January 06, 2025 1:49pm Supervision of high-risk [facility] 2024 1:49pm Chief Complaint Admit Date [...] December 21, 2024 10:15am [facility] 2024 10:15am Abnormal glucose affecting Sep tember 2024 1:49pm Anxiety and depression January 06, 2 025 1:49pm History of delivery, currently January 06, 2025 1:49pm History of miscarriage, currently pregna nt January 06, 2025 1:49pm Obesity affecting January 062024 1:49pm January 06, 2025 1:49pm PUPP (pruritic urticarial pa pules and plaques of ) January 06, 2025 1:49pm Supervision of high-risk [facility] 2024 1:49pm Abnormal glucose affecting Oct nessa [...] Augus t 2024 3:31pm Abnormal glucose affecting [facility] 2024 10:15am Anxiety and depression December 21 10:15am History of delivery, currently December 21, 2024 10:15am History of miscarriage, currently pregna nt December 21, 2024 10:15am Obesity affecting December 10:15am December 21, 2024 10:15am PUPP (pruritic urticarial pa pules and plaques of ) December 21, 2024 10:15am Supervision of high-risk [facility] 2024 10:15am Abnormal glucose affecting Sep [facility] 2024 1:49pm Anxiety and depression January 06 [...] section and content) DATE CREATED AUTHOR 06/03/[address] [facility] DATE CREATED AUTHOR AUTHOR'S ORGANIZ ATION 10/20/2018 [facility] ([place]) DATE CREATED AUTHOR AUTHOR'S ORGANIZ ATION 03/26/2021 [facility] DATE CREATED AUTHOR AUTHOR'S ORGANIZ ATION 10/28/2024 [facility] DATE CREATED AUTHOR AUTHOR'S ORGANIZ ATION [facility]/07[facility]20[facility] Care Teams (unrecognized sec tion and content) Team Status: Active Member Role Status Dates Louise GILES PA-C Family Provider Active Louise GILES PA-C Primary Care Provider Active Team Status: Inactive Member Role Status Dates Louise GILES PA-C Primary Care Provider, Referri ng Provider Active Jenny So CNM Attending Provider Active Team Status: Inactive Member Role Status Dates Louise Gray PA, PA-C Primary Care Provider Active Jenny So CNM Attending Provider, Referring Pr ovider Active Team Status: Inactive Member Role Status Dates Louise Moon PA, PA-C Primary Care Provider, Referri ng Provider Active Bessie Mansfield MILL CONTROL OPERATOR, MILL CONTROL OPERATOR-C Attending Provider Active Team Status: Inactive Member Role Status Dates Louise Moon PA, PA-C Primary Care Provider Active Bessie Mansfield MILL CONTROL OPERATOR, MILL CONTROL OPERATOR-C Attending Provider, Referring Provider Active Team Status: [...] 24, 2024 End: August 24, 2024 Louise Gray PA, PA-C Referring Provider Active Start: August 24, 2024 End: August 24, 2024 Dr. Amee Schaffer MD Attending Provider Active Start: August 24, 2024 End: August 24, 2024 Team Status: Inactive Member Role Status Dates Louise Moon PA, PA-C Primary Care Provider Active Start: September 19, 2024 End: September 19, 2024 Louise Gray PA, PA-C Referring Provider Active Start: September 19, 2024 End: September 19, 2024 Ning Oquendo CNM Attending Provider Active S tart: September 19, 2024 End: September 19, 2024 Team Status: Active Member Role/Relationship Status Dates Louise Moon PA, PA-C Family Provider Active Louise Gray PA, PA-C Primary Care Provider Active Team [...] 29, 2024 End: July 29, 2024 Louisesaniya oMon PA, PA-C Referring Provider Active Start: July [...] 29, 2024 End: July 29, 2024 Jenny oS CNM Referring Provider Active Start: July 29, [...] 2024 End: October 17, 2024 Bessie Mansfield MILL CONTROL OPERATOR, MILL CONTROL OPERATOR-C Attending Provider Active Start: October 17, 2024 [...] 2024 End: October 17, 2024 Bessie Mansfield MILL CONTROL OPERATOR, MILL CONTROL OPERATOR-C Attending Provider Active Start: October 17, 2024 End: October 17, 2024 Team Status: Inactive Member Role/Relationship Status Dates Louise Moon PA, PA-C Primary Care Provider Active Start: November 15, 2024 End: November 15, 2024 Louisesaniya Moon PA, PA-C Referring Provider Active Start: November 15, 2024 End: November 15, 2024 Bessie Mansfield MILL CONTROL OPERATOR, MILL CONTROL OPERATOR-C Attending Provider Active Start: November 15, 2024 [...] 2024 End: October 17, 2024 Bessie Mansfield MILL CONTROL OPERATOR, MILL CONTROL OPERATOR-C Attending Provider Active Start: October 17, 2024 End: October 17, 2024 Team Status: Inactive Member Role/Relationship Status Dates Louise Moon PA, PA-C Primary Care Provider Active Start: November 15, 2024 End: November 15, 2024 Louisesaniya Moon PA, PA-C Referring Provider Active Start: November 15, 2024 End: November 15, 2024 Bessie Mansfield MILL CONTROL OPERATOR, MILL CONTROL OPERATOR-C Attending Provider Active Start: November 15, 2024 End: November 15, 2024 Team Status: Active Member Role/Relationship Status Dates Louise Moon PA, PA-C Primary Care Provider Active Start: December 06, 2024 Bessie Mansfield MILL CONTROL OPERATOR, MILL CONTROL OPERATOR-C Attending Provider Active Start: December 06, 2024 Bessie Mansfield MILL CONTROL OPERATOR, MILL CONTROL OPERATOR-C Referring Provider Active Start: December 06, 2024 Team Status: Inactive Member Role/Relationship Status Dates Louise Moon PA, PA-C Primary Care Provider Active Start: December 06, 2024 End: December 06, 2024 Louisesaniya Moon PA, PA-C Referring Provider Active Start: December 06, 2024 End: December 06, 2024 Bessie Mansfield MILL CONTROL OPERATOR, MILL CONTROL OPERATOR-C Attending Provider Active Start: December 06, 2024 End: December 06, 2024 Team Status: Inactive Member Role/Relationship Status Dates Louise Moon PA, PA-C Primary Care Provider Active Start: December 06, 2024 End: December 06, 2024 Bessie Mansfield MILL CONTROL OPERATOR, MILL CONTROL OPERATOR-C Attending Provider Active Start: December 06, 2024 End: December 06, 2024 Bessie Mansfield MILL CONTROL OPERATOR, MILL CONTROL OPERATOR-C Referring Provider Active Start: December 06, 2024 End: December 06, 2024 Team Status: Inactive Member Role/Relationship Status Dates Louise Moon PA, PA-C Primary Care Provider Active Start: December 13, 2024 End: December 13, 2024 Bessie Mansfield MILL CONTROL OPERATOR, MILL CONTROL OPERATOR-C Attending Provider Active Start: December 13, 2024 End: December 13, 2024 Bessie Mansfield MILL CONTROL OPERATOR, MILL CONTROL OPERATOR-C Referring Provider Active Start: December 13, 2024 End: December 13, 2024 Team Status: Inactive Member Role/Relationship Status Dates Louise Moon PA, PA-C Primary Care Provider Active Start: December 21, 2024 End: December 21, 2024 Louise Gray PA, PA-C Referring Provider Active Start: December [...] 2024 End: October 17, 2024 Bessie Mansfield MILL CONTROL OPERATOR, MILL CONTROL OPERATOR-C Attending Provider Active Start: October 17, 2024 End: October 17, 2024 Team Status: Inactive Member Role/Relationship Status Dates Louise Hills PA, PA-C Primary Care Provider Active Start: November 15, 2024 End: November 15, 2024 Louise Moon PA, PA-C Referring Provider Active Start: November 15, 2024 End: November 15, 2024 Bessie Mansfield MILL CONTROL OPERATOR, MILL CONTROL OPERATOR-C Attending Provider Active Start: November 15, 2024 End: November 15, 2024 Team Status: Inactive Member Role/Relationship Status Dates Louise Moon PA, PA-C Primary Care Provider Active Start: December 06, 2024 End: December 06, 2024 Bessie Mansfield MILL CONTROL OPERATOR, MILL CONTROL OPERATOR-C Attending Provider Active Start: December 06, 2024 End: December 06, 2024 Bessie Mansfield MILL CONTROL OPERATOR, MILL CONTROL OPERATOR-C Referring Provider Active Start: December 06, 2024 End: December 06, 2024 Team Status: Inactive Member Role/Relationship Status Dates Louise Sarai PA, PA-C Primary Care Provider Active Start: December 06, 2024 End: December 06, 2024 Louise Moon PA, PA-C Referring Provider Active Start: December 06, 2024 End: December 06, 2024 Bessie Mansfield MILL CONTROL OPERATOR, MILL CONTROL OPERATOR-C Attending Provider Active Start: December 06, 2024 End: December 06, 2024 Team Status: Inactive Member Role/Relationship Status Dates Louise Moon PA, PA-C Primary Care Provider Active Start: December 13, 2024 End: December 13, 2024 Bessie Mansfield MILL CONTROL OPERATOR, MILL CONTROL OPERATOR-C Attending Provider Active Start: December 13, 2024 End: December 13, 2024 Bessie Mansfield MILL CONTROL OPERATOR, MILL CONTROL OPERATOR-C Referring Provider Active Start: December 13, 2024 [...] 2024 End: October 17, 2024 Bessie Mansfield MILL CONTROL OPERATOR, MILL CONTROL OPERATOR-C Attending physician Active Start: October 17, 2024 End: October 17, 2024 Team Status: Inactive Member Role/Relationship Status Dates Louise Moon PA, PA-C Primary care physician Active Start: November 15, 2024 End: November 15, 2024 Louisesaniya Moon PA, PA-C Referring Provider Active Start: November 15, 2024 End: November 15, 2024 Bessie Mansfield MILL CONTROL OPERATOR, MILL CONTROL OPERATOR-C Attending physician Active Start: November 15, 2024 End: November 15, 2024 Team Status: Inactive Member Role/Relationship Status Dates Louise Moon PA, PA-C Primary care physician Active Start: December 06, 2024 End: December 06, 2024 Bessie Mansfield MILL CONTROL OPERATOR, MILL CONTROL OPERATOR-C Attending physician Active Start: December 06, 2024 End: December 06, 2024 Bessie Mansfield MILL CONTROL OPERATOR, MILL CONTROL OPERATOR-C Referring Provider Active Start: December 06, 2024 End: December 06, 2024 Team Status: Inactive Member Role/Relationship Status Dates Louise Moon PA, PA-C Primary care physician Active Start: December 06, 2024 End: December 06, 2024 Louisesaniya Moon PA, PA-C Referring Provider Active Start: December 06, 2024 End: December 06, 2024 Bessie Mansfield MILL CONTROL OPERATOR, MILL CONTROL OPERATOR-C Attending physician Active Start: December 06, 2024 End: December 06, 2024 Team Status: Inactive Member Role/Relationship Status Dates Louisesaniya Moon PA, PA-C Primary care physician Active Start: December 13, 2024 End: December 13, 2024 Bessie Mansfield MILL CONTROL OPERATOR, MILL CONTROL OPERATOR-C Attending physician Active Start: December 13, 2024 End: December 13, 2024 Bessie Mansfield MILL CONTROL OPERATOR, MILL CONTROL OPERATOR-C Referring Provider Active Start: December 13, 2024 [...] 06, 2025 End: January 06, 2025 Louise Gray PA, PA-C Referring Provider Active Start: January [...] 2024 End: October 17, 2024 Bessie Mansfield MILL CONTROL OPERATOR, MILL CONTROL OPERATOR-C Attending physician Active Start: October 17, 2024 End: October 17, 2024 Team Status: Inactive Member Role/Relationship Status Dates Louise Moon PA, PA-C Primary care physician Active Start: November 15, 2024 End: November 15, 2024 Louise Moon PA, PA-C Referring Provider Active Start: November 15, 2024 End: November 15, 2024 Bessie Mansfield MILL CONTROL OPERATOR, MILL CONTROL OPERATOR-C Attending physician Active Start: November 15, 2024 End: November 15, 2024 Team Status: Inactive Member Role/Relationship Status Dates Louise Moon PA, PA-C Primary care physician Active Start: December 06, 2024 End: December 06, 2024 Bessie Mansfield MILL CONTROL OPERATOR, MILL CONTROL OPERATOR-C Attending physician Active Start: December 06, 2024 End: December 06, 2024 Bessie Mansfield MILL CONTROL OPERATOR, MILL CONTROL OPERATOR-C Referring Provider Active Start: December 06, 2024 End: December 06, 2024 Team Status: Inactive Member Role/Relationship Status Dates Louise Moon PA, PA-C Primary care physician Active Start: December 06, 2024 End: December 06, 2024 Louise Moon PA, PA-C Referring Provider Active Start: December 06, 2024 End: December 06, 2024 Bessie Mansfield MILL CONTROL OPERATOR, MILL CONTROL OPERATOR-C Attending physician Active Start: December 06, 2024 End: December 06, 2024 Team Status: Inactive Member Role/Relationship Status Dates Louise Moon PA, PA-C Primary care physician Active Start: December 13, 2024 End: December 13, 2024 Bessie Mansfield MILL CONTROL OPERATOR, MILL CONTROL OPERATOR-C Attending physician Active Start: December 13, 2024 End: December 13, 2024 Bessie Mansfield MILL CONTROL OPERATOR, MILL CONTROL OPERATOR-C Referring Provider Active Start: December 13, 2024 [...] BE BASED ON THE PRIMARY CLINICAL RECORDS. [facility] [employer] [facility]. provides no warranty or guarantee of the accuracy or completeness of information in this document.
[2025-02-08 07:17] LABS: Glucose GTT-Gestation. Fasting 93 mg/dL (<105)
[2025-02-08 10:24] LABS: Glucose GTT-Gestational 1 Hr 177 mg/dL (<190)
[2025-02-08 10:36] LABS: Glucose GTT-Gestational 2 Hr 138 mg/dL (<165)
[2025-02-08 12:08] LABS: Glucose GTT-Gestational 3 Hr 141 L (<145)
== END | disposition home or self-care (01) ==
LOC: LAB 06:47
PROVIDERS: PCP Family Medicine; Referring Provider Advanced Practice Midwife; Visit Provider Advanced Practice Midwife
DX: O36.60X0 Maternal care for excessive fetal growth, unspecified trimester, not applicable or unspecified (principal); Z3A.00 Weeks of gestation of pregnancy not specified
CPT/HCPCS: 36415; 82951; 82952

== ENCOUNTER 2025-02-20 09:45 | Inpatient (IN) | payer OTHER, MEDICAID, SELFPAY ==
[2025-02-20] VITALS (18 sets, daily range): BP systolic 67–120; BP diastolic 42–87; PULSE 65–95; RESP 11–23; TEMP 36.1–36.8; O2SAT 92–100; BMI 50.8
[2025-02-20] MEDS: Lactated Ringers 1,000 ML 999 ML IV (10:15)
[2025-02-20 10:42] LABS: Hematocrit 36.0 % (37-47); Hemoglobin 12.3 g/dL (12.0-15.0); Immature Granulocytes Count 0.060 X10^3/uL (0.0-0.0); Mean Corp Hgb Conc 34.2 g/dL (32-36); Mean Corpuscular Volume 90.7 fL (81-99); Mean Platelet Vol. 11.9 fl (6.2-12.0); NRBC Flagged by Analyzer 0 % (0-5); Platelet Count 164 K/mm3 (150-450); RBC Distribution Width CV 13.3 % (11.6-14.6); RBC Distribution Width SD 44.1 fl (35.1-43.9); Red Blood Count 3.97 M/mm3 (4.2-5.4); White Blood Count 9.3 K/mm3 (4.4-11.0)
[2025-02-20] MEDS: Lactated Ringers 1,000 ML 150 ML IV (11:22)
[2025-02-20 12:09] LABS: Syphilis Antibodies Nonreactive (Nonreactive)
[2025-02-20] MEDS: Lactated Ringers 500 ML IV (12:12)
[2025-02-20] MEDS: 0.9% Normal Saline (1000mL) 350 ML IV (12:12)
[2025-02-20] MEDS: Cefazolin 1 GM/5 ML Vial 3 GM IV (12:13)
--- NOTE | 2025-02-20 12:16 | PCM.HP.OB ---
HPI - General General Date of Admission: 02/20/25 HPI Narrative LOULOU YOU, is a 29 F who presents for RLTCS Maternal Data Information LITA Calculator Estimated Delivery Date Method Current WG Current Estimate 02/26/25 LMP (Certain) 39w 1d PFSH PFSH Medical History (Updated 02/20/25 @ 10:08 by Alyse Ordonez) macrosomia Irregular menses Infertility Morbid obesity ASCUS favoring dysplasia History of twin in prior Anxiety and depression Home Medications ?Medication ?Instructions ?Recorded ?Last Taken ?Type docosahexaenoic acid 200 mg mg PO 07/08/24 Unknown History capsule ( DHA) ondansetron 4 mg disintegrating 4 mg PO Q6H PRN nausea and 09/07/24 Unknown Rx tablet vomiting #30 tabs vits,calcium no.78-iron 1 tab PO Q24H 01/01/25 12/31/24 21:00 History fumarate-folic acid 29 mg-1 mg 1 TAB tablet (Prenatabs FA) Allergy/AdvReac Type Severity Reaction Status Date / Time Penicillins (PCN) Allergy Rash Verified 02/20/25 10:03 Family History Grandfather Cancer lung throat- smoker Father Diabetes Sister Cancer Surgical History S/P LEEP H/O dilation and curettage Hx of abdominal surgery History of S/P cholecystectomy Social History adopted: No household members: significant other, children and other details: her mother lives with them housing: house number of children: 2 current occupational status: employed 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 - [employer] current occupational exposures/hazards: No pets and animals: Yes (Not managing liter box) pets and animals: cat(s) history of recent travel: Yes ( - May 2024) out of state: Yes out of country: No sexually active: Yes Smoking Status: Never smoker second hand exposure: No alcohol intake: former details: Many many years substance use type: does not use well-balanced diet: daily or most days caffeine: Yes Type: carbonated beverages Number of servings: 1 eating out: 1-3 times/week during the past year weight has: remained stable what type of physical activity do you participate in: walking frequency: 1-2 times per week duration: < 15 minutes/day karo/yarsanism: None seatbelt use: always do you feel safe at home: Yes additional social history: 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 Date Name GA/Weeks Outcome Route Bth Weight Infant Gen Labor Lgth Anesthesia Del Locatn Provider FOB 05/10/18 Andreina 38 live - full term 6lb 1oz Female [facility] Manuel 05/10/18 Stefania 38 live - full term 6lbs 5oz Female [facility] Manuel 10/15/20 10 spontaneous Delivery Date: 05/10/18 Last Updated by: Laine aHrden Twins; Breech/Breech Delivery Date: 05/10/18 Last Updated by: Laine Harden Twins; Breech/Breech Delivery Date: 10/15/20 Last Updated by: Hannah Mercado RN D&C - [facility] Visit Details Expected Delivery Route/Plan tolac if able, if not cs sceheduled Labor Preferences- CB/BF classes: no labor support person: Will labor intervention preferences: [] pain management options preferred: epidural ok cut cord/dad catch: yes : yes PP control planned: discussed discussed possible routes of delivery and associated risks: [] special requests: [] patient counseled regarding risks/benefits of trial of labor versus repeat . ACOG/uptodate education given to patient. 38 % likelihood of success per calculator TOLAC consent form signed: [] Plans Covid status: [] Flu vaccine: [] Tdap vaccine: [] Rhogam: [] LARC form signed: [] Problem list reviewed and updated with the most current plan of care details and appropriate orders placed. Relevant counseling for the gestational age provided. Continue routine care and follow up unless otherwise noted in visit notes/problem list details OB Flowsheet Initial Weight: 269 lb Date <del>?</del> EGA Weight BP Urine Prot <del>?</del> Glucose FHR FuHt Pres Dilation <del>?</del> Effaced St Visit Note 07/29/24 <del>?</del> 9w 5d 269 lb 4 oz (+4 oz) 125/81 <del>?</del> 164 <del>?</del> LC- CRL con with lmp. declines nipt. LC- CRL con with lmp. declines nipt. desires . [id number] added for obesity 08/24/24 <del>?</del> 13w 3d 269 lb 6 oz (+6 oz) 125/84 Negative <del>?</del> Negative 160 <del>?</del> SM- no vb cramping 09/19/24 <del>?</del> 17w 1d 273 lb (+4 lb) 122/78 Negative <del>?</del> Negative 155 <del>?</del> kw- no vb/cramping. no flutters yet. US set up for 10/10 with [facility]. has rash on upper thighs-benadryl cream and Claritin. 10/17/24 <del>?</del> 21w 1d 278 lb 4 oz (+9 lb 4 oz) 120/74 Negative <del>?</del> Negative 147 <del>?</del> MH-No VB. Good FM. Reviewed anatomy US. 11/15/24 <del>?</del> 25w 2d 273 lb 8 oz (+4 lb 8 oz) 118/78 Negative <del>?</del> Negative 153 <del>?</del> MH-No VB. Good Fm. Larc. Has raised itchy rash entire torso to upper thighs. Has had about 4 weeks. Went to urgent care then PCP. Normal CMP and ANABEL. Claritan and hydroxyzine not helpful. SM reviewed. Medrol pk and will see derm. 12/06/24 <del>?</del> 28w 2d 281 lb 2 oz (+12 lb 2 oz) 126/72 <del>?</del> 145 29 <del>?</del> MH-No VB, LOF. Good FM. Derm confirmed PUPPS. Has improved. 28 wk labs pending. Tdap 12/21/24 <del>?</del> 30w 3d 283 lb 9 oz (+14 lb 9 oz) 120/70 Negative <del>?</del> Negative 135 34 <del>?</del> JV- long discussion today about . patient's wishes are to go as long as possible (41 weeks) she understands we do not induce, rather augment as needed with a prior scar. She is obese with chance of success being only 38%. 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 Consent given for her to read more and bring back next visit. 01/06/25 <del>?</del> 32w 5d 285 lb 6 oz (+16 lb 6 oz) 112/72 Negative <del>?</del> Negative 135 37 <del>?</del> KW- no vb/ctx/lof. good fm. rash is much better. discussed getting 41 week c/s set up. will need NSTs at 34 weeks and 36 week US 01/20/25 <del>?</del> 34w 5d 286 lb 4 oz (+17 lb 4 oz) 108/69 Negative <del>?</del> Negative 130 <del>?</del> SM- discussed TOLAC vs RLTCS no vb lof good fm no reulgar ctx 01/25/25 <del>?</del> 35w 3d 285 lb 7 oz (+16 lb 7 oz) 107/71 Negative <del>?</del> Negative 135 <del>?</del> SM- no vb lof good fm n roeuglar ctx 01/30/25 <del>?</del> 36w 1d 287 lb 6 oz (+18 lb 6 oz) 109/70 <del>?</del> 140 Cephalic 1 <del>?</del> 0 -3 JV-GBS collected. NST reactive. wanted short term disability papers filled out now. signed consent 02/06/25 <del>?</del> 37w 1d 283 lb 9 oz (+14 lb 9 oz) 118/78 Negative <del>?</del> Negative 140 <del>?</del> KW- NST reactive. good fm. reviewed US and asking for addendum. EFW was [id number] and francois normal. is repeating glucose and will consider moving C/S vs IOL to 39 weeks. would like to discuss at next appt 02/14/25 <del>?</del> 38w 2d 285 lb 7 oz (+16 lb 7 oz) 118/79 Negative <del>?</del> Negative 140 Cephalic 1 <del>?</del> 50 -3 SM- discussed LGA recommend 39 week deliveyr and not favorable for IOL recommend RLTCS unles spontaneous labor NST FHR Rate Baby A Baseline: 130 Variability:: Moderate Accelerations:: 15 x 15 Decelerations:: None NST Reactive:: Yes FHR Category:: Category I Uterine Activity:: irregular ROS Constitutional Constitutional: Reports systems reviewed and no addt'l complaints, except as documented Eyes Eyes: Denies change in vision ENT HEENT: Reports systems reviewed and no addt'l complaints, except as documented; Denies headache(s) Cardiovascular Cardiovascular: Reports systems reviewed and no addt'l complaints, except as documented; Denies chest pain or dyspnea Respiratory/Chest Respiratory/Chest: Reports systems reviewed and no addt'l complaints, except as documented Gastrointestinal Gastrointestinal: Reports systems reviewed and no addt'l complaints, except as documented; Denies abdominal pain Genitourinary Genitourinary: Reports systems reviewed and no addt'l complaints, except as documented, contractions Details: present (irregular) and movement Details: present; Denies dysuria or genital lesions Musculoskeletal Musculoskeletal: Reports systems reviewed and no addt'l complaints, except as documented Neurologic Neurologic: Reports systems reviewed and no addt'l complaints, except as documented Endocrine Endocrinology: Reports systems reviewed and no addt'l complaints, except as documented Vital Signs Vital Signs Vital Signs: 02/20/25 10:05 Temperature 97.3 F L Temperature Source Temporal Pulse Rate 95 Respiratory Rate 18 Blood Pressure 120/70 Blood Pressure Mean 86 Blood Pressure Source Monitor Blood Pressure Position Semi-Fowlers Blood Pressure Location Right Arm Baseline BP 120/70 Pulse Ox 98 Oxygen Delivery Method Room Air Weight Weight: 287 lb Body Mass Index (BMI) 50.8 Physical Exam Const alert, oriented x3, no apparent distress and healthy appearing HEENT normocephalic and moist oral mucous membranes Head and Scalp: atraumatic Neck full ROM, no lymphadenopathy, supple and thyroid normal General: trachea midline Lymph Lymphatic: no lymphadenopathy noted Chest inspection of chest normal Resp normal respiratory effort Cardio regular rate GI soft to palpation and non-tender GI Narrative: gravid Inspection: gravid external exam normal Manual OB Exam: estimated gestational size appropriate, presentation cephalic, dilated, effaced and station Extremity normal to inspection General Extremity: Negative for edema Skin no rashes or lesions noted Neuro no focal motor deficits and deep tendon reflexes 2+ bilaterally Motor Exam: strength 5/5 throughout and clonus absent Psych mental status grossly normal Labs Labs Labs: Blood Type O POSITIVE Antibody Screen NEGATIVE Hct, (37-47) 36.0 % L Hgb, (12.0-15.0) 12.3 g/dL Obstetrics Ultrasound Syphilis Total Ab, (Nonreactive) Nonreactive Rubella IgG Antibody, (Nonreactive) REAC Hep Bs Antigen, (Nonreactive) Nonreactive Hepatitis C Antibody, (Nonreactive) Nonreactive Chlamydia DNA ([facility]), (Negative) Negative N.gonorrhoeae DNA ([facility]), (Negative) Negative HIV 1&2 Antibody, (Nonreactive) Nonreactive Glucose 1 Hr 50 gm, (70-140) 167 mg/dL H Gest Glucose Tolerance mg/dL Rhogam given: No Miscellaneous Test Assessment & Plan (1) LGA (large for gestational age) fetus affecting management of mother: COMMENT: normal Repeat GTT (2) Abnormal glucose affecting : COMMENT: normal 3 hr GTT (3) PUPP (pruritic urticarial papules and plaques of ): COMMENT: medrol pk, claritan. Confirmed by derm (4) History of miscarriage, currently : COMMENT: 2020- D&C @ 10wks; Trisomy 21 (5) History of delivery, currently : COMMENT: Desires . C/S 03/03 w/ SM. (6) Obesity affecting : QUALIFIERS: Trimester: second trimester Obesity type affecting : unspecified obesity Qualified Code(s): O99.212 - Obesity complicating , second trimester COMMENT: BMI 46.1; HgBA1C ordered w/NOB (7) Supervision of high-risk : QUALIFIERS: Trimester: third trimester Qualified Code(s): O09.93 - Supervision of high risk , unspecified, third trimester COMMENT: PRR,, LITA 02/26/25,boy PC: Andreina & Stefania *TWINS*, BF Will (8) : QUALIFIERS: Weeks of gestation: 38 weeks Qualified Code(s): Z3A.38 - 38 weeks gestation of COMMENT: GBS neg. Discussed genetic/carrier testing - undecided (9) Anxiety and depression: COMMENT: IN THE PAST PLAN: Plan plan RLTCS
[2025-02-20] MEDS: Oxytocin 15 Units/NS 250ml 15 UNITS/250 ML IV.SOLN 83 UNITS IV (13:45)
--- NOTE | 2025-02-20 13:47 | PLAC_PTH ---
PATIENT: LOULOU YOU LOC: [facility] U#:[id number] AGE/SX: 29/F ROOM: WP007 RE02/20/[address]: Dr. Amee Jackson MD : 1995 BED: 1 DIS: 02/21/2025 SPEC #: [id number] RECD: 02/20/25 14:09 STATUS: SHE REJennifer #: [id number] LAURA: 02/20/25 13:[address]: Amee Jackson DEPT: SURGICAL PATHOLOGY RECD BY: Girma Dee ENTERED: 02/21/25 11:10 SP TYPE: PLACENTA OTHR DR: Louise Moon PA-C Tissues: A - Placenta, NOS Procedures: Surgery Specimen Level V HEADER OPERATION: Repeat section PRE-OP DIAGNOSIS: Routine studies TISSUE SUBMITTED: A- Placenta MICROSCOPIC DIAGNOSIS A. Placenta, section: - Velamentously inserted, furcated, and bivascular umbilical cord without active inflammation - Marginally inserted membranes without active inflammation - Mature (third trimester and consistent with the stated gestational age of 39 weeks / 1 day) placental without active inflammation and with a marginal infarct (4 x 2.8 x2.4 cm) MICROSCOPIC DESCRIPTION Slides are reviewed. GROSS DESCRIPTION A. Received in formalin labeled with the patient's name and date of is a 925 g, 19.5 x 19.1 x 5.4 cm slightly irregular, ovoid placental disc and 24 g of detached, clotted blood. The membranes are franklin and translucent, with minimal adherent blood clot and inserting marginally. The attached and tethered umbilical cord bivascular and measures 64.1 cm in length by 1.0-2.0 cm in diameter with a false knot and apparent furcate insertion, 4.3 cm from the disc edge; there is a complete, true knot located 56.5 cm from the disc edge. The surface is purple-blue and granular with subchorionic fibrin (>25%), a 5.0 x 3.4 cm opaque cyst containing straw-colored serous fluid and a 4.9 x 3.5 cm subamniotic hematoma at the umbilical cord insertion. The maternal surface is dark red-purple with patchy fibrin (>25%) and loosely adherent blood clot; grossly, the maternal surface is complete. Sectioning reveals dark red, spongy parenchyma with focal hemorrhages and fibrin (<20%); along the peripheral edge there is a large, pink-red apparent infarct, 4.0 x 2.8 x 2.4 cm. Edge Bander Operator sections are submitted as follows: A1: Membrane rollA2: Umbilical cordA3: Placenta with surface cyst subchorionic fibrin and subamniotic hematoma (no blood clot)A4: Placenta with fibrin and hemorrhageA5: Peripheral edge with apparent infarct HI 02/21/2025 CPT:25519
[2025-02-20] MEDS: Ketorolac 30 MG/ML Syringe IV ×2 (14:00→19:55)
--- NOTE | 2025-02-20 14:03 | EX.PCM.OBRPT ---
Assessment & Plan (1) LGA (large for gestational age) fetus affecting management of mother: COMMENT: normal Repeat GTT (2) Abnormal glucose affecting : COMMENT: normal 3 hr GTT (3) PUPP (pruritic urticarial papules and plaques of ): COMMENT: medrol pkroberto. Confirmed by derm (4) History of miscarriage, currently : COMMENT: 2020- D&C @ 10wks; Trisomy 21 (5) History of delivery, currently : COMMENT: Desires . C/S 03/03 w/ SM. (6) Obesity affecting : QUALIFIERS: Trimester: second trimester Obesity type affecting : unspecified obesity Qualified Code(s): O99.212 - Obesity complicating , second trimester COMMENT: BMI 46.1; HgBA1C ordered w/NOB (7) Supervision of high-risk : QUALIFIERS: Trimester: third trimester Qualified Code(s): O09.93 - Supervision of high risk , unspecified, third trimester COMMENT: PRR,, LITA 02/26/25,boy PC: Andreina & Stefania *TWINS*, BF Will (8) : QUALIFIERS: Weeks of gestation: 38 weeks Qualified Code(s): Z3A.38 - 38 weeks gestation of COMMENT: GBS neg. Discussed genetic/carrier testing - undecided (9) Anxiety and depression: COMMENT: IN THE PAST (10) delivery delivered: COMMENT: duc csection boy 39 lga Maternal Data Information LITA Calculator Estimated Delivery Date Method Current WG Current Estimate 02/26/25 LMP (Certain) 39w 1d Operative Report (OB) Procedure Details Date of Procedure: 02/20/25 Procedure Start Time: 12:15 Pre-Operative Diagnosis: Other Other Pre-Operative diagnosis: see a/p comments Post-Operative Diagnosis: Same as Pre-operative diagnosis Classification: Scheduled Type of Anesthesia: Spinal Special Medications: none Antibiotic Given: Ancef 3 grams IV x1 Drain: Garcia to straight drain Estimated Blood Loss: 800 Fluids Replaced: crystalloid Findings Description of surgery: Spinal anesthesia was placed without difficulty. Garcia catheter was placed. The patient was placed in the dorsal supine position with leftward tilt. Patient was prepped and draped in the normal sterile fashion. Pfannenstiel skin incision was made with the scalpel and carried through to the underlying layer of fascia with the scalpel. Fascia was nicked in the midline and the incision extended laterally. The rectus bellies were dissected off superiorly and inferiorly with out complication both sharply and bluntly. The peritoneum was entered digitally. The incision was stretched and a low transverse uterine incision was made with the scalpel. The 's head was delivered atraumatically followed by the anterior and posterior shoulders without complication the rest of the delivered. The cord was clamped and cut and the infant was handed off to awaiting nurse. The placenta was delivered spontaneously immediately following and was noted to be intact and have a three-vessel cord. The uterus was cleared of all clots and debris, and the incision was closed in a double layer closure using #1 Monocryl. The ovaries and fallopian tubes were noted to be within normal limits. gutters were cleared of all clots and debris hemoblast used on incision for hemostasis. The peritoneum was closed with 3-0 Monocryl in a running fashion. Gloves were changed prior to fascial closure. Fascia was closed with 0 PDS in a running fashion. Subcutaneous tissue was copiously irrigated and the skin was closed with 3-0 Monocryl in a subcuticular fashion. Mepilex dressing was applied without complication. Patient was taken to recovery in stable condition. It was discussed with the patient that based on the clinical information obtained during this encounter, combined with her history, at this time I would recommend for future deliveries if further pregnancies are desired. 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
--- NOTE | 2025-02-20 14:06 | DCINST_ITS ---
Discharge Instructions
--- NOTE | 2025-02-20 14:06 | PCM.DC ---
Discharge Instructions DC O2, CPAP, BIPAP needs Home O2 Discharge instructions: No Dressing / Incision Discharge Activity: May Not Drive (for 2 weeks or while taking narcotic pain medications.), May Shower and May Take a Tub Bath (in 7 days) May shower in (days): 0 May resume sexual activity in: 4-6 weeks Weight Bearing Status: Full weight bearing Lifting Restrictions: 20 pounds Dressing / Incision Call your doctor if your incision/area has: Continuous Slow Oozing, Sudden Increased Bleeding, Increased Pain/ Swelling, Increased Redness and Foul Smelling Discharge Call your doctor if you observe: Fever of 101 or Higher and Using more than 1 pad per hour (for 2 hours) Suture Line Care: Avoid Pulling/Pushing and Avoid Pinching/Bending Cleanse incision/area with: Soap & Water and Keep Dressing Clean & Dry Follow Up Care Please Follow Up With: Amee Jackson MD When: Call [phone] to make an appointment for an incision check in 1-2 weeks. Test Results: Test results from this visit will be discussed in further detail at your follow-up appointment, if applicable. Discharge Plan Admission Admit Date/Time: 02/20/25 09:45 Attending Provider: Amee Jackson Primary Care Provider: Louise Moon Discharge Orders/Prescriptions Prescriptions: No Action DHA 200 mg capsule PO Prenatabs FA 29-1 mg tablet 1 tab PO Q24H ondansetron 4 mg tablet,disintegrating 4 mg PO Q6H PRN (Reason: nausea and vomiting) Qty: 30 4RF Referrals / Follow Up: Louise Moon PAAntoinetteC [Primary Care Provider, Medical]
[2025-02-20] MEDS: Lactated Ringers 1,000 ML 100 ML IV (17:15)
[2025-02-20] MEDS: 0.9% Saline Lock 10 ML Syringe IV (19:55)
[2025-02-21 02:03] VITALS: BP 106/68; PULSE 85; RESP 16; TEMP 36.8; O2SAT 99
[2025-02-21] MEDS: 0.9% Saline Lock 10 ML Syringe IV ×2 (02:03→07:54)
[2025-02-21] MEDS: Ketorolac 30 MG/ML Syringe IV ×2 (02:03→07:56)
[2025-02-21 05:56] VITALS: BP 99/57; PULSE 76; RESP 16; TEMP 36.8; O2SAT 99
[2025-02-21 06:08] LABS: Hematocrit 31.2 % (37-47); Hemoglobin 10.6 g/dL (12.0-15.0); Mean Corp Hgb Conc 34.0 g/dL (32-36); Mean Corpuscular Volume 91.2 fL (81-99); Mean Platelet Vol. 11.7 fl (6.2-12.0); Platelet Count 168 K/mm3 (150-450); RBC Distribution Width CV 13.6 % (11.6-14.6); RBC Distribution Width SD 45.3 fl (35.1-43.9); Red Blood Count 3.42 M/mm3 (4.2-5.4); White Blood Count 10.2 K/mm3 (4.4-11.0)
[2025-02-21 08:00] VITALS: BP 100/60; PULSE 63; RESP 16; TEMP 36.7; O2SAT 98
--- NOTE | 2025-02-21 08:22 | PCM.PN.OB ---
Subjective Subjective Patient doing well without complaints. Tolerating PO. Ambulating and voiding without difficulty. Feeding well. Denies chest pain, shortness of breath, calf pain/swelling, fevers, chills, lightheadedness. she wants to go home today Objective Data Objective Data Vital Signs: Vital Signs Temp Pulse Resp BP Pulse Ox O2 Del Method 98.2 F 76 16 99/57 L 99 Room Air 02/21/25 05:56 02/21/25 05:56 02/21/25 05:56 02/21/25 05:56 02/21/25 05:56 02/21/25 05:56 Oxygen Delivery Method Room Air Weight: 287 lb Body Mass Index (BMI) 50.8 Intake & Output: Intake and Output for Last 24 Hours 02/19/25 02/20/25 02/21/25 22:59 23:59 23:59 Intake Total 1554.17 / 1554.17 Output Total 2600 / 2600 250 / 250 Balance -1045.83 / -1045.83 -250 / -250 Lab / Micro Data 02/21/25 06:00 Labs: Laboratory Results - last 24 hr 02/20/25 10:15: WBC 9.3, RBC 3.97 L, Hgb 12.3, Hct 36.0 L, MCV 90.7, MCH 31.0, MCHC 34.2, RDW Std Deviation 44.1 H, RDW Coeff of Janelle 13.3, Plt Count 164, MPV 11.9, Immature Gran % (Auto) 0.600, Neut % (Auto) 78.0 H, Lymph % (Auto) 14.1 L, [place] % (Auto) 6.6, Eos % (Auto) 0.4, Baso % (Auto) 0.3, Absolute Neuts (auto) 7.3, Absolute Lymphs (auto) 1.31, Nucleated RBC % 0, Syphilis Total Ab Nonreactive, Blood Type O POSITIVE, Antibody Screen NEGATIVE 02/21/25 06:00: WBC 10.2, RBC 3.42 L, Hgb 10.6 L, Hct 31.2 L, MCV 91.2, MCH 31.0, MCHC 34.0, RDW Std Deviation 45.3 H, RDW Coeff of Janelle 13.6, Plt Count 168, MPV 11.7 ROS Constitutional Constitutional: Denies chills, fatigue, fever(s), poor appetite or weakness Eyes Eyes: Denies blurry vision, change in vision, seeing flashes or spots in vision ENT HEENT: Denies dizziness, headache(s), loss taste/smell or sore throat Cardiovascular Cardiovascular: Denies chest pain, dizziness, dyspnea, irregular heart rhythm, palpitations or rapid heart rate Respiratory/Chest Respiratory/Chest: Denies chest tightness, cough, dyspnea or breast pain Gastrointestinal Gastrointestinal: Denies abdominal pain, constipation or vomiting Genitourinary Genitourinary: Denies dysuria or flank pain Musculoskeletal Musculoskeletal: Denies difficulty walking, joint pain, limited range of motion or numbness Neurologic Neurologic: Denies abnormal movements, abnormal speech, dizziness, numbness, seizure-like activity or syncope Psychiatric Psychiatric: Denies anxiety, behavioral changes, change in appetite, confusion, depression or suicidal thoughts Physical Exam Const alert, oriented x3 and no apparent distress General Appearance: cooperative and comfortable Resp normal respiratory effort Cardio regular rate GI normal to inspection, nondistended, normoactive bowel sounds GI Narrative: uterus is firm below umbilicus Palpation: soft Back/Spine no CVA tenderness and thoraco-lumbar ROM normal Extremity normal to inspection, no clubbing, cyanosis or edema, no calf tenderness and no pedal edema Psych mental status grossly normal, thought process normal, cooperative, affect normal, speech normal, activity/motor behavior normal, denies homicidal ideation and denies suicidal ideation Assessment & Plan (1) delivery delivered: COMMENT: duc csection boy 39 lga PLAN: Plan s/p LTCS PPD # 1 1. routine post care 2. breast feeding- support given 3. rh positive 4. rubella immune 5. wants to go home later today
[2025-02-21] MEDS: Senna/Docusate Sodium 1 Tablet PO (12:29)
[2025-02-21 12:30] VITALS: BP 105/58; PULSE 66; RESP 16; TEMP 36.4; O2SAT 98
--- NOTE | 2025-02-21 15:26 | CASEMGMT ---
Social Work Assessment Labor and Delivery Unit Patient Address: [address] [place] [address] [place] [address] Phone number: [phone] Date of Referral: 02/20/25 Time of Referral:? 1851 Referred By: Dr. Jackson Date of Intervention: ?02/21/25? Time of Intervention:? 1430 Reason for Referral:? hx of anxiety and depression Sw completed chart review and acknowledges social work consult due to maternal mental health. Sw presented to bedside and introduced self to mother of baby, RUPA- Patty and father of baby, DANAYB- Killian Rivera. Sw explained reason for sw involvement and completed psychosocial assessment. History obtained from: medical records, MOB and FOB Household composition: Currently residing in the family home is MOB, FOB, MOB's two older children: Jenifer and Stefania, 6 year old twins and MOB's mother. [place] baby to be included in residence when ready for discharge. MOB denies any issues or concerns with home stating that it is safe and secure. Patient's parent/guardian status:? ?FOB states that he and RUPA went to school together and knew of one another, but started dating each other two years ago after seeing each other on a dating site. No concerns reported of domestic violence or intimate partner violence. Medical History: ?RUPA is 29 year old female who is 3, para 2- now 3 following labor and delivery of . RUPA received routine care during with [facility]. MOB presented to hospital and baby via repeat on 02/20/25 at 39 weeks gestation. Baby boy, named Salvatore Ramirez, was born weighing 10lbs 1oz and had apgars of 9 and 9 at one and five minutes of life, respectfully. RUPA is breast feeding and states that it is going well. Baby will be followed by Dr. Mercado for pediatrics. Educational Status:? Both parents graduated from high school and obtained certificates in college. No problems with reading, learning or comprehension. Financial Status: Both parents are gainfully employed outside of the home. 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 DANIEL is a poultry farmer egg Infant Supplies:?? All necessary baby supplies obtained, including: car seat, safe sleep space, clothes, diapers and wipes. Childcare/Caregiver(s):? MOB and FOB will be the primary care givers to baby. When both parents are working maternal grandma and other grandparents will assist with childcare. Transportation:?? Both parents have their drivers license and reliable means of transportation, no barriers Programs/Agencies Involved: ?Parents are not connected to any community agencies that provide financial assistance ?? Children Services/Legal Issues:?No prior involvement with children services, no issues or concerns warranting referral to be made at this time. ?? Behavioral Health Issues: ??Mental Health History:?FOB denies mental health history or diagnoses. MOB reports history of depression or anxiety. ?MOB denies experiencing depression or depression anxiety following the delivery of her twins six years ago. MOB states that she has not struggle with any mental health symptoms in several years. MOB is not prescribed any medications or connected to any community mental health resources. ? Substance Use History:?Parents deny substance use prior to and during . ? Family History:??Parents deny family history of substance use or significant mental health history. ??? Drug Screens: ??No drug screens observed while completing chart review. Family/Social Stressors:? MOB denies any issues, concerns or stressors at this time. Support Systems: MOB states that both sets of grandparents are supportive. Depression/Shaken Baby/Safe Sleeping:? Sw educated parents on signs and symptoms of baby blues and mood and anxiety disorders to be mindful of during this period. Parents expressed understanding. MOB states that she will be able to discuss with FOB if she is struggling with any symptoms. FOB states that he may not always know how to support or help MOB. Sw encouraged parents to have a conversation on things that FOB can do to help MOB. Parents agreed to have this conversation. Sw educated parents on shaken baby prevention and ABCs of safe sleep, parents express understanding. ASSESSMENT:?MOB and baby admitted following labor and delivery. MOB with mental health history of anxiety and depression. She reports that she has not struggled with any symptoms for several years, she is not prescribed any medications and is not connected to any community mental health resources. MOB states that since baby has been born she feels like herself, denies feeling down, sad, anxious or tearful. MOB reports to feeling a phillips and connection with baby. baby is first baby for FOB. He states that he was initially nervous to care for baby, but is starting to feel more and more comfortable. MOB was sitting on bed and FOB was sitting in chair, both parents were receptive to meet with sw and complete psychosocial assessment. Both parents were talkative and engaging in conversation. Conversation flowed easily and naturally. Family has obtained all necessary baby supplies and have natural supports in place. PLAN:? No other services requested or indicated. MOB and baby to be discharged when medically ready. Parents were provided literature regarding: signs and symptoms of baby blues and mood and anxiety disorders, Help Me Grow, shaken baby prevention, ABCs of safe sleep and a list of counts include [facility] beds at the [facility] resources that are available for them should any needs present themselves. Makayla Miguel, PREVENTIVE MAINTENANCE ENGINEER, [employer]
--- NOTE | 2025-02-28 13:47 | NURSING ---
F/up call attempted-- no ans, LVM.
[2025-03-02 15:44] LABS: Pathology Specimen OB SEE PATHOLOGY REPORT
== END 2025-02-21 15:40 | disposition home or self-care (01) | DRG 788 ==
PROVIDERS: Admitting Provider Obstetrics & Gynecology; PCP Family Medicine; Referring Provider Obstetrics & Gynecology; Visit Provider Obstetrics & Gynecology
PROC: 10D00Z1 Extraction of Products of Conception, Low, Open Approach (ICD-10-PCS; CPT 59514; principal; 2025-02-20 11:45)
DX: O99.214 Obesity complicating childbirth (principal); O34.211 Maternal care for low transverse scar from previous cesarean delivery; Z37.0 Single live birth; Z3A.39 39 weeks gestation of pregnancy; Z87.59 Personal history of other complications of pregnancy, childbirth and the puerperium; Z86.59 Personal history of other mental and behavioral disorders
CPT/HCPCS: 59025; 59050; 85025; 85027; 86780; 86850; 86900; 86901; 88307; 99221; A4216; G0378; J2405